=== PATIENT | female | born 1985 | race Caucasian/White ===

== ENCOUNTER 2019-04-11 19:03 | Inpatient (IN) | payer OTHER, SELFPAY ==
[2019-04-11 20:00] VITALS: BMI 53.0
[2019-04-11 20:07] LABS: Absolute Lymphocyte Count 2.44 X10^3/uL (0.83-4.51); Absolute Neutrophil Count 7.1 X10^3/uL (2.0-7.7); Basophil# 0.02 X10^3/uL; Basophil% 0.2 % (0-1); Eosinophil# 0.21 X10^3/uL; Hematocrit 34.1 % (37-47); Hemoglobin 10.4 g/dL (12.0-15.0); Lymphocyte # 2.44 X10^3/ul (4.0); Lymphocyte % 23.1 % (19-41); Mean Corp Hgb Conc 30.5 g/dL (32-36); Mean Corpuscular Hgb 24.8 pg (27.0-32.0); Mean Corpuscular Volume 81.2 fL (81-99); Mean Platelet Vol. 9.7 fl (6.2-12.0); Monocyte# 0.76 X10^3/uL; Monocyte% 7.2 % (0-10); NRBC Flagged by Analyzer 0 % (0-5); Neutrophil # 7.09 X10^3/uL (2.7-7.7); Neutrophil % 66.9 % (47-70); Platelet Count 250 K/mm3 (150-450); RBC Distribution Width CV 15.2 % (11.6-14.6); RBC Distribution Width SD 44.2 fl (35.1-43.9); White Blood Count 10.6 K/mm3 (4.4-11.0)
[2019-04-11] MEDS: miSOPROStol 25 MCG TABLET VAGINAL (20:38)
[2019-04-11] MEDS: 0.9% Normal Saline Single 100 ML IV.SOLN. IY (21:28)
--- NOTE | 2019-04-11 21:46 | HP.PCM_ITS ---
History Date of Admission: 04/11/19 Final HANNAH: 04/19/19 Gestational age: 38 Weeks and 6 Days History of this : This is a 33 year-old, G 1P0 at 38.6 weeks here for cervical ripening and labor induction due to morbid obesity and term gestation. Allergies codeine Adverse Reaction (Verified 04/11/19 19:55) Nausea/Vom/Diarrhea Home Medications: Home Medications Iron 04/11/19 Levothyroxine 04/11/19 Tablet 04/11/19 Smoking Status: Never smoker Alcohol: None Number of Fetus(es): 1 NST - FHR Rate Baby A Baseline: 140 Variability:: Moderate Accelerations:: 15 x 15 Decelerations:: None NST Reactive:: Yes FHR Category:: Category I Uterine Activity:: q2-5- pt not feeling strong contractions History Past Pregnancies: Past Pregnancies Delivery Date Name GA/ Weeks Outcome Route Wt Sex Labor Length Anesthesia Delivery Location Provider FOB Labs: GBS neg Expected Infant Delivery Method: Spontaneous Vaginal Physical Exam General: Alert, Oriented x3 Abdomen: Soft, Non Tender, Gravid Neurological: Cranial nerves II-XII grossly intact [employer]: Normal external genitalia Estimated gestational size: Appropriate for gestational size Presentation: Cephalic Cervix Dilation (cm): 1 Station: -3 Effacement (%): 60 Assessment/Plan This is a 33 year-old, G P0 at 38.6 weeks here for cervical ripening and labor induction due to morbid obesity and term gestation. 1) admit to L&D 2) monitor Fhr/toco 3) cytotec/brito then will start pitocin 4) anticipate
[2019-04-12] VITALS (9 sets, daily range): BP systolic 109–134; BP diastolic 48–95; PULSE 63–92; RESP 14–16; TEMP 37.1–37.7; O2SAT 96–100
[2019-04-12] MEDS: Oxytocin 30 units/NS 500 ml 30 UNITS/500 ML IV.SOLN IV (00:39)
[2019-04-12] MEDS: Lactated Ringers 1,000 ML 50 ML IV (00:39)
[2019-04-12] MEDS: 0.9% Saline Lock 10 ML Syringe IV ×3 (00:46→22:28)
[2019-04-12] MEDS: Lactated Ringers 500 ML 999 ML IV ×4 (03:19→15:38)
--- NOTE | 2019-04-12 05:44 | PCM.PN.BLA ---
Progress Note pt seen at bedside doing well. rates pain mild from contractions. VE: /-2- AROM performed- clear fluid. IUPC and IFM placed. Continue pitocin. Anticipate
--- NOTE | 2019-04-12 10:29 | PCM.PN.BLA ---
Progress Note pt seen at bedside - laboring without epidural. VE: /-3. Prominent pubic arch, narrow pelvis. FHR reviewed.
[2019-04-12] MEDS: Lactated Ringers 1,000 ML 200 ML IV ×2 (10:53→16:57)
[2019-04-12] MEDS: fentaNYL 100 MCG/2 ML Ampul IV (10:55)
[2019-04-12] MEDS: fentaNYL-bupivacaine (epidural) 100 ML BAG EPIDURAL ×2 (15:05→19:23)
--- NOTE | 2019-04-12 18:23 | PCM.PN.BLA ---
Progress Note pt seen at bedside, sitting comfortably with epidural in place. Vaginal exam performed patient is 4 to 5 cm 90% effaced -3 station caput appreciated. Cussed with the patient that at this time we will allow her to continue to labor for another hour and a half and if she is still the same exam my recommendation is for primary section for failed induction. Patient and family verbalized understanding and agree with the plan of care.
--- NOTE | 2019-04-12 20:25 | PCM.PN.BLA ---
Progress Note pt seen at bedside, VE same per RN. Decision for primary cs for failed induction
[2019-04-12] MEDS: Sodium Citrate/Citric Acid 30 ML UDC PO (20:32)
--- NOTE | 2019-04-12 21:33 | OP.PCM_ITS ---
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 She was prepped and draped in the normal sterile fashion. Epidural Anesthesia was found to be adequate. At this time a Pfannenstiel skin incision was made with a knife was carried down to the underlying layer of the fascia. The fascial incision was then extended laterally using curved Norman scissor. Attention was then turned to the superior aspect of the fascial edge was grasped with 2 straight Webb clamps tented up and the rectus muscle dissected off sharply using bovie. Attention was then turned to the inferior aspect where again Webb clamps were placed in the rectus muscles were tented up and the fascia was dissected off using the bovie. Rectus muscles were then in the midline bluntly and peritoneum was entered bluntly. Gentle opposing traction was placed. At this time the vesicouterine peritoneum was identified. Scalpel was used to make a uterine incision in a low transverse fashion. The uterus was then entered bluntly gentle opposing traction was placed to extend this incision. Membranes were clear. Infant's head was brought to the uterine incision was delivered atraumatically. Nuchal, body and a true KNOT were appreciated. Nuchal was reduced prior to delivery. delayed cord clamping performed. Cord was clamped and cut infant was handed to the waiting nursery team. The Placenta was removed from the uterus. The uterus was then removed from the abdominal cavity. The uterus was cleared of all clots and debris using a lap. At this time the uterine incision was reapproximated using #1 Vicryl in a running locked fashion. second imbricating layer placed using #1 vicryl. Hemostasis was appreciated. Posterior cul-de-sac was then cleared of all clots and debris. Uterus was p laced back in the abdominal cavity. Gutters were cleared of all clots and debris. Uterine incision was reevaluated and noted to be of excellent hemostasis. Carter placed. At this time the peritoneum was grasped with Kellys reapproximated using #2 Vicryl suture in a running fashion. Fascia was then reapproximated using #1 PDS in a running fashion. Subcu layer was evaluated- excellent hemostasis- Carter placed- then it was reapproximated with #2 0 plain gut suture in an interrupted fashion. Subcu layer was closed using 4-0 vicrryl in a subcu fashion. Dry sterile dressing was applied. Instrument lap needle count correct ?2. Anticipated normal postoperative course. Amniotic Membrane Rupture Type: Artificial Amniotic Fluid Description: Clear Placenta Disposition: [facility] Drain: Field to straight drain Cord Entanglement: Around neck x 1, loose, True Knot(s), - - body x1 loose Nuchal Cord Compression: Without compression Cord Vessel Description: 3 Vessels Esitmated Blood Loss (ml): 650 Gender: Male (1 minute): 9 (5 minute): 9 Delayed cord clamping: Yes Antibiotic Given: Ancef 3 grams IV x1, Zithromax 500 mg/5 mL X1 Pt instructed on risks of surgery: Bleeding, Anesthesia Risks, Infection, Injury to surrounding structure(s) including bowel and bladder Complications: None - Admit VTE Documentation VTE Present on Admission: Yes VTE Mechan Device Prophylaxis: SCD's VTE Pharm Prophylaxis ordered?: Yes
[2019-04-12] MEDS: Ketorolac 30 MG/ML Syringe IV (21:35)
[2019-04-12] MEDS: Lactated Ringers 1,000 ML 100 ML IV (22:00)
[2019-04-12] MEDS: Oxytocin 30 units/NS 500 ml 30 UNITS/500 ML IV.SOLN 167 UNITS IV (22:00)
[2019-04-12] MEDS: HYDROmorphone 1 MG/ML Syringe IV (22:28)
[2019-04-13] VITALS (10 sets, daily range): BP systolic 101–142; BP diastolic 39–80; PULSE 67–98; RESP 14–18; TEMP 36.7–37.9; O2SAT 95–100
[2019-04-13] MEDS: oxyCODONE 5 MG Tablet PO ×3 (01:53→11:47)
--- NOTE | 2019-04-13 03:02 | NURSING ---
abdominal binder provided with kpad for pt.
--- NOTE | 2019-04-13 03:42 | NURSING ---
epidural catheter removed. blue tip intact. pt tolerated well and gauze applied with bandaid.
[2019-04-13] MEDS: Ketorolac 30 MG/ML Syringe IV ×4 (03:46→21:34)
[2019-04-13] MEDS: 0.9% Saline Lock 10 ML Syringe IV ×3 (03:46→21:34)
[2019-04-13 04:20] LABS: Hematocrit 28.2 % (37-47); Hemoglobin 8.9 g/dL (12.0-15.0); Mean Corp Hgb Conc 31.6 g/dL (32-36); Mean Corpuscular Hgb 25.4 pg (27.0-32.0); Mean Corpuscular Volume 80.3 fL (81-99); Platelet Count 179 K/mm3 (150-450); RBC Distribution Width CV 15.3 % (11.6-14.6); RBC Distribution Width SD 44.4 fl (35.1-43.9); Red Blood Count 3.51 M/mm3 (4.2-5.4); White Blood Count 14.7 K/mm3 (4.4-11.0)
[2019-04-13] MEDS: Acetaminophen 500 MG Tablet 1000 MG PO ×2 (04:25→14:35)
[2019-04-13] MEDS: Levothyroxine 75 MCG Tablet 37.5 MCG PO (06:18)
[2019-04-13] MEDS: Lactated Ringers 1,000 ML 100 ML IV (06:19)
--- NOTE | 2019-04-13 08:02 | PCM.PN.OB ---
Subjective: Patient seen at bedside, doing well. Patient reports good pain control. Mild lochia. Brito catheter in place. She denies any chest pain, shortness of breath, dizziness or N/V. Patient reports she is passing flatus. breast feeding well. - Physical Exam Vitals/I&O's: Vital Signs Temp Pulse Resp BP Pulse Ox 98.1 F 88 16 109/54 L 98 04/13/19 07:43 04/13/19 07:43 04/13/19 07:43 04/13/19 07:43 04/13/19 07:43 Oxygen Delivery Method Room Air Weight: 140.2 kg Body Mass Index (BMI) 53.0 Intake and Output for Last 24 Hours 04/11/19 04/12/19 04/13/19 23:59 23:59 23:59 Intake Total 6939.53 / 6939.53 3031.67 / 3031.67 Output Total 1300 / 1300 900 / 900 Balance 5639.53 / 5639.53 2131.67 / 2131.67 General: Alert, Oriented x3 Abdomen: Soft, Non-Distended, - - dressing dry and intact. Incision dressing dry and intact Extremities: No Calf Tenderness Neurological: Cranial nerves II-XII grossly intact Laboratory Results 04/13/19 04:00: WBC 14.7 H, RBC 3.51 L, Hgb 8.9 L, Hct 28.2 L, MCV 80.3 L, MCH 25.4 L, MCHC 31.6 L, RDW Std Deviation 44.4 H, RDW Coeff of Tyrese 15.3 H, Plt Count 179, MPV 10.0 Current Medications Acetaminophen (Tylenol) 1,000 mg PO Q8H PRN PRN PRN Reason: Pain Score 1-3/10;Temp>99.6F Last Admin: 04/13/19 04:25 Dose: 1,000 mg Documented by: Bisacodyl (Dulcolax) 10 mg RECTAL UD PRN PRN Reason: If no BM Enoxaparin Sodium (Lovenox) 40 mg SC 0900,2100 [facility] Hydrocortisone (Hytone) 1 applic TOPICAL TID PRN PRN; Protocol PRN Reason: Discomfort Hydromorphone HCl (Dilaudid Inj) 0.5 - 1.5 mg IV Q3H PRN PRN PRN Reason: Pain Score 4-10/10 Stop: 04/13/19 21:41 Last Admin: 04/12/19 22:28 Dose: 1 mg Documented by: Lactated Ringer's () 1,000 mls @ 100 mls/hr IV .Q10H [facility] Last Admin: 04/13/19 06:19 Dose: 100 mls/hr Documented by: Naloxone HCl 4 mg/ Dextrose 504 mls @ 0 mls/hr IV .Q0M PRN; Protocol PRN Reason: Respiratory depression Naloxone HCl 4 mg/ Dextrose 504 mls @ 0 mls/hr IV .Q0M PRN; Protocol PRN Reason: To maintain Resp. rate >10 Ibuprofen (Motrin) 600 mg PO Q6H PRN PRN PRN Reason: Pain Score 1-3/10 Ketorolac Tromethamine (Toradol) 30 mg IV Q6H [facility] Stop: 04/14/19 15:46 Last Admin: 04/13/19 03:46 Dose: 30 mg Documented by: Levothyroxine Sodium (Synthroid) 37.5 mcg PO DAILY@0600 [facility] Last Admin: 04/13/19 06:18 Dose: 37.5 mcg Documented by: Methylergonovine Maleate (Methergine) 0.2 mg IM X1 PRN PRN Reason: Uterine Atony Naloxone HCl (Narcan) 0.02 mg IV Q1M PRN PRN Reason: RR <10 and pt unresponsive Ondansetron HCl (Zofran) 4 mg IV Q4H PRN PRN PRN Reason: Nausea Oxycodone HCl (Oxyir) 5 - 10 mg PO Q4H PRN PRN PRN Reason: Pain Score 4-10/10 Last Admin: 04/13/19 07:16 Dose: 10 mg Documented by: Prochlorperazine Edisylate (Compazine Iv) 10 mg IV Q6H PRN PRN PRN Reason: NAUSEA Senna/Docusate Sodium (Senokot-S, Lotus-Colace) 0 tablet PO DAILY PRN PRN Reason: Constipation Simethicone (Mylicon) 80 mg PO PCHS PRN PRN Reason: Indigestion/stomach pain Sodium Chloride () 5 - 15 ml IV UD PRN PRN Reason: SALINE FLUSH Last Admin: 04/13/19 03:46 Dose: 10 ml Documented by: Medical Necessity - Tobacco Use Smoking Status: Never smoker Assessment/Plan POD#1, doing well routine care pain mgmt dc brito later today ambulation
[2019-04-13] MEDS: Senna/Docusate Sodium 1 Tablet PO (09:24)
[2019-04-13] MEDS: Enoxaparin 40 MG/0.4 ML Syringe SC ×2 (09:24→21:34)
--- NOTE | 2019-04-13 20:36 | NURSING ---
Patient complains of a tender area in lower left abdomen. No grimace upon palpation. Will continue to monitor. Patient advised to notify this RN with worsening pain or questions/concerns.
[2019-04-14 02:15] VITALS: BP 146/47; PULSE 80; RESP 18; TEMP 36.7
[2019-04-14] MEDS: Ketorolac 30 MG/ML Syringe IV ×3 (03:39→16:42)
[2019-04-14] MEDS: 0.9% Saline Lock 10 ML Syringe IV ×3 (03:39→16:42)
[2019-04-14] MEDS: Levothyroxine 75 MCG Tablet 37.5 MCG PO (06:25)
[2019-04-14 08:43] VITALS: BP 106/61; PULSE 91; RESP 16; TEMP 37.1; O2SAT 98
[2019-04-14] MEDS: Acetaminophen 500 MG Tablet 1000 MG PO (08:49)
--- NOTE | 2019-04-14 08:52 | PN.OBGYN_ITS ---
Subjective: Doing well per patient and nursing staff. Ambulating and taking PO without difficulty. Voiding and passing flatus. . Pain controlled. Denies SOB, chest pain, leg pain, increased vaginal bleeding or clots. Planning D/C home tomorrow. Baby being followed by pediatricians for TTN, in patients room at this time. - Physical Exam Vitals/I&O's: Vital Signs Temp Pulse Resp BP Pulse Ox 98.8 F 91 16 106/61 98 04/14/19 08:43 04/14/19 08:43 04/14/19 08:43 04/14/19 08:43 04/14/19 08:43 Oxygen Delivery Method Room Air Weight: 309 lb 1.409 oz Body Mass Index (BMI) 53.0 Intake and Output for Last 24 Hours 04/12/19 04/13/19 04/14/19 23:59 23:59 23:59 Intake Total 6939.53 / 6939.53 3435.00 / 3435.00 Output Total 1300 / 1300 1999 / 1999 Balance 5639.53 / 5639.53 1435.00 / 1435.00 General: Alert, Oriented x3, Cooperative HEENT: Atraumatic, Normocephalic Neck: Trachea Midline Lungs: Clear to auscultation, Normal air movement, No rhonchi, No wheeze Cardiovascular: Regular rate, Regular Rhythm, No murmurs Abdomen: Hypoactive Bowel Sounds - Fundus firm 3 below U. Dressing clean, dry and intact. Extremities: No edema - Milton's negative bilaterally Psych/Mental Status: Normal Affect, Appropriate Current Medications Acetaminophen (Tylenol) 1,000 mg PO Q8H PRN PRN PRN Reason: Pain Score 1-3/10;Temp>99.6F Last Admin: 04/14/19 08:49 Dose: 1,000 mg Documented by: Bisacodyl (Dulcolax) 10 mg RECTAL UD PRN PRN Reason: If no BM Enoxaparin Sodium (Lovenox) 40 mg SC 0900,2100 [facility] Last Admin: 04/13/19 21:34 Dose: 40 mg Documented by: Hydrocortisone (Hytone) 1 applic TOPICAL TID PRN PRN; Protocol PRN Reason: Discomfort Naloxone HCl 4 mg/ Dextrose 504 mls @ 0 mls/hr IV .Q0M PRN; Protocol PRN Reason: Respiratory depression Naloxone HCl 4 mg/ Dextrose 504 mls @ 0 mls/hr IV .Q0M PRN; Protocol PRN Reason: To maintain Resp. rate >10 Ibuprofen (Motrin) 600 mg PO Q6H PRN PRN PRN Reason: Pain Score 1-3/10 Ketorolac Tromethamine (Toradol) 30 mg IV Q6H [facility] Stop: 04/14/19 15:46 Last Admin: 04/14/19 03:39 Dose: 30 mg Documented by: Levothyroxine Sodium (Synthroid) 37.5 mcg PO DAILY@0600 [facility] Last Admin: 04/14/19 06:25 Dose: 37.5 mcg Documented by: Methylergonovine Maleate (Methergine) 0.2 mg IM X1 PRN PRN Reason: Uterine Atony Naloxone HCl (Narcan) 0.02 mg IV Q1M PRN PRN Reason: RR <10 and pt unresponsive Ondansetron HCl (Zofran) 4 mg IV Q4H PRN PRN PRN Reason: Nausea Oxycodone HCl (Oxyir) 5 - 10 mg PO Q4H PRN PRN PRN Reason: Pain Score 4-10/10 Last Admin: 04/13/19 11:47 Dose: 10 mg Documented by: Prochlorperazine Edisylate (Compazine Iv) 10 mg IV Q6H PRN PRN PRN Reason: NAUSEA Senna/Docusate Sodium (Senokot-S, Lotus-Colace) 0 tablet PO DAILY PRN PRN Reason: Constipation Last Admin: 04/13/19 09:24 Dose: 1 tablet Documented by: Simethicone (Mylicon) 80 mg PO PCHS PRN PRN Reason: Indigestion/stomach pain Last Admin: 04/14/19 03:50 Dose: 80 mg Documented by: Sodium Chloride () 5 - 15 ml IV UD PRN PRN Reason: SALINE FLUSH Last Admin: 04/14/19 03:39 Dose: 10 ml Documented by: Medical Necessity - Tobacco Use Smoking Status: Never smoker Assessment/Plan A:POD #2 Primary LTCS Acute blood loss anemia P: 1) Routine postop and care 2) support 3) Pain control 4) Planning D/C home tomorrow 5) CBC in am
[2019-04-14] MEDS: Enoxaparin 40 MG/0.4 ML Syringe SC ×2 (08:56→21:30)
--- NOTE | 2019-04-14 10:15 | NURSING ---
baby transferred to [facility] , mother initiated double pumping with double electric hospital pump, explained, discussed hand expression 4-5x per day, washing pump parts, collecting milk for baby, and encouragement of every 3 hour pumping , mother indicates understanding
[2019-04-14 11:57] VITALS: BP 114/73; PULSE 80; RESP 16; TEMP 37; O2SAT 97
[2019-04-14] MEDS: Ferrous Sulfate 325 MG Tablet PO ×2 (13:02→16:41)
[2019-04-14 16:56] VITALS: BP 102/38; PULSE 80; RESP 16; TEMP 37.1; O2SAT 100
[2019-04-14 20:49] VITALS: BP 116/76; PULSE 79; RESP 18; TEMP 37.3; O2SAT 100
[2019-04-15 02:34] VITALS: BP 122/74; PULSE 83; RESP 18; TEMP 37; O2SAT 99
[2019-04-15] MEDS: Levothyroxine 75 MCG Tablet 37.5 MCG PO (06:10)
[2019-04-15 06:31] LABS: Absolute Lymphocyte Count 2.57 X10^3/uL (0.83-4.51); Absolute Neutrophil Count 7.7 X10^3/uL (2.0-7.7); Basophil# 0.02 X10^3/uL; Basophil% 0.2 % (0-1); Eosinophil# 0.25 X10^3/uL; Eosinophils% 2.2 % (0-5); Hematocrit 27.5 % (37-47); Hemoglobin 8.4 g/dL (12.0-15.0); Lymphocyte # 2.57 X10^3/ul (4.0); Lymphocyte % 22.7 % (19-41); Mean Corp Hgb Conc 30.5 g/dL (32-36); Mean Corpuscular Hgb 25.4 pg (27.0-32.0); Mean Corpuscular Volume 83.1 fL (81-99); Mean Platelet Vol. 9.5 fl (6.2-12.0); Monocyte# 0.69 X10^3/uL; Monocyte% 6.1 % (0-10); NRBC Flagged by Analyzer 0 % (0-5); Neutrophil % 68.1 % (47-70); Platelet Count 195 K/mm3 (150-450); RBC Distribution Width CV 15.7 % (11.6-14.6); Red Blood Count 3.31 M/mm3 (4.2-5.4); White Blood Count 11.3 K/mm3 (4.4-11.0)
--- NOTE | 2019-04-15 08:44 | PN.OBGYN_ITS ---
Subjective: pain well controlled. Average lochia. no N/V. Isaias. regular diet - Physical Exam Vitals/I&O's: Vital Signs Temp Pulse Resp BP Pulse Ox 98.6 F 83 18 122/74 H 99 04/15/19 02:34 04/15/19 02:34 04/15/19 02:34 04/15/19 02:34 04/15/19 02:34 Oxygen Delivery Method Room Air Weight: 140.2 kg Body Mass Index (BMI) 53.0 Intake and Output for Last 24 Hours 04/13/19 04/14/19 04/15/19 23:59 23:59 23:59 Intake Total 3435.00 / 3435.00 Output Total 1999 Balance 1435.00 / 1435.00 General: Alert, Cooperative, No apparent distress Abdomen: Soft, Non-Distended, Tender - mildly Extremities: Edema - 2+ Skin: Incision - bandage is Clean,dry and intact Laboratory Results 04/15/19 06:15: WBC 11.3 H, RBC 3.31 L, Hgb 8.4 L, Hct 27.5 L, MCV 83.1, MCH 25.4 L, MCHC 30.5 L, RDW Std Deviation 47.0 H, RDW Coeff of Tyrese 15.7 H, Plt Count 195, MPV 9.5, Immature Gran % (Auto) 0.700, Neut % (Auto) 68.1, Lymph % (Auto) 22.7, [place] % (Auto) 6.1, Eos % (Auto) 2.2, Baso % (Auto) 0.2, Absolute Neuts (auto) 7.7, Absolute Lymphs (auto) 2.57, Nucleated RBC % 0 Current Medications Acetaminophen (Tylenol) 1,000 mg PO Q8H PRN PRN PRN Reason: Pain Score 1-3/10;Temp>99.6F Last Admin: 04/14/19 08:49 Dose: 1,000 mg Documented by: Bisacodyl (Dulcolax) 10 mg RECTAL UD PRN PRN Reason: If no BM Enoxaparin Sodium (Lovenox) 40 mg SC 0900,2100 [facility] Last Admin: 04/14/19 21:30 Dose: 40 mg Documented by: Ferrous Sulfate (Ferrous Sulfate) 325 mg PO 1200,1700 [facility] Last Admin: 04/14/19 16:41 Dose: 325 mg Documented by: Hydrocortisone (Hytone) 1 applic TOPICAL TID PRN PRN; Protocol PRN Reason: Discomfort Naloxone HCl 4 mg/ Dextrose 504 mls @ 0 mls/hr IV .Q0M PRN; Protocol PRN Reason: Respiratory depression Naloxone HCl 4 mg/ Dextrose 504 mls @ 0 mls/hr IV .Q0M PRN; Protocol PRN Reason: To maintain Resp. rate >10 Ibuprofen (Motrin) 600 mg PO Q6H PRN PRN PRN Reason: Pain Score 1-3/10 Levothyroxine Sodium (Synthroid) 37.5 mcg PO DAILY@0600 [facility] Last Admin: 04/15/19 06:10 Dose: 37.5 mcg Documented by: Methylergonovine Maleate (Methergine) 0.2 mg IM X1 PRN PRN Reason: Uterine Atony Naloxone HCl (Narcan) 0.02 mg IV Q1M PRN PRN Reason: RR <10 and pt unresponsive Ondansetron HCl (Zofran) 4 mg IV Q4H PRN PRN PRN Reason: Nausea Oxycodone HCl (Oxyir) 5 - 10 mg PO Q4H PRN PRN PRN Reason: Pain Score 4-10/10 Last Admin: 04/13/19 11:47 Dose: 10 mg Documented by: Prochlorperazine Edisylate (Compazine Iv) 10 mg IV Q6H PRN PRN PRN Reason: NAUSEA Senna/Docusate Sodium (Senokot-S, Lotus-Colace) 0 tablet PO DAILY PRN PRN Reason: Constipation Last Admin: 04/13/19 09:24 Dose: 1 tablet Documented by: Simethicone (Mylicon) 80 mg PO PCHS PRN PRN Reason: Indigestion/stomach pain Last Admin: 04/14/19 03:50 Dose: 80 mg Documented by: Sodium Chloride () 5 - 15 ml IV UD PRN PRN Reason: SALINE FLUSH Last Admin: 04/14/19 16:42 Dose: 10 ml Documented by: Medical Necessity - Tobacco Use Smoking Status: Never smoker Assessment/Plan POD#3 s/p primary c/s doing well routine care working on , patient d/c to [facility]
--- NOTE | 2019-04-15 08:49 | DCINST_ITS ---
Discharge Diet: No Restrictions Discharge Activity: Return to Normal Activity, May Not Drive - for 2 weeks, May not drive while taking narcotic pain medications., May Shower, May Take a Tub Bath - in 7 days. May resume sexual activity in: 4-6 weeks Lifting Restrictions: 20 pounds Additional Activity Instructions:: Nothing in the vagina for 4-6 weeks. You may return to work/school in 6 weeks. Call your doctor if your incision/area has: Continuous Slow Oozing, Sudden Increased Bleeding, Increased Pain/ Swelling, Increased Redness, Foul Smelling Discharge Call your doctor if you observe: Fever of 101 or Higher, Using more than one pad per hour - for 2 hours Suture Line Care: Avoid Pulling/Pushing, Avoid Pinching/Bending Cleanse incision/area with: Keep Dressing Clean & Dry Additional Instructions: If you experience any of the following, contact your healthcare provider. * Bleeding that soaks a pad every hour for 2 hours * Fever 100.4 or higher * Unrelieved incision or abdominal pain * Swelling, redness, discharge or bleeding from your incision or episiotomy site * Your incision begins to separate * Problems urinating (including inability to urinate or burning while urinating). * Visual changes * Severe headache * Flu-like symptoms * Pain or redness in one of both of your breasts * Pain, warmth, tenderness or swelling in your legs, especially the calf area * Frequent nausea and vomiting * Symptoms of depression or anxiety If you experience any of the following, call 911 or go to the nearest Emergency Room. * Chest pain * Problems breathing * Seizure activity * Partial or complete paralysis of a body part, slurred speech, weakness or drooping of the face, or a sudden inability to walk or hold your balance Allergies/Adverse Reactions: Allergies codeine Adverse Reaction (Verified 04/11/19 19:55) Nausea/Vom/Diarrhea Medications to take at Discharge Iron 04/11/19 Levothyroxine 04/11/19 Tablet 04/11/19 Oxycodone [Oxyir] 5 mg PO Q6H PRN PRN 7 Days #12 tablet 04/15/19 The following prescriptions were given: Oxycodone [Oxyir] 5 mg PO Q6H PRN PRN 7 Days #12 tablet PRN Reason: severe pain Transmission Status: Received by [facility]/pharmacy #[id number] Follow-Up: Call to make an appointment with your doctor for an incision check in 1-2 weeks. You will also need a 6 week post- follow up appointment. Test results from this visit will be discussed in further detail at your follow- up appointment, if applicable. Please Follow Up With: Janet Myers MD - Call to make an appointment for an incision check in 1-2 [phone] When: You will need a post check in 6 weeks. Primary Care Physician: Lauren Ramirez, [Primary Care Provider] -
--- NOTE | 2019-04-15 08:51 | DS.PCM_ITS ---
Discharge Date and Diagnosis Date of Admission: 04/11/19 Date of Discharge: 04/15/19 Hospital Course and Treatment Consultations 04/11/19 19:21 Consult: Anesthesia Routine Comment: Reason For Exam: Labor Operations: - - primary LTCS Procedures: None Summary of Care Provided: The patient is a 33-year-old female admitted at 39 weeks gestation for induction of labor due to maternal obesity and history of gastric bypass. was complicated to date by those problems. Her induction proceeded to she was 4 to 5 cm. She then had arrest of dilation and descent. station never progressed past -3. Patient underwent primary section. Postoperative course was uncomplicated. She had mild acute blood loss anemia superimposed on chronic antepartum anemia. By postoperative day #3 she was ambulating, urinating tolerating regular diet without difficulty. She was discharged home with routine instructions and prescriptions and to follow-up in the office in 1- 2 in 6 weeks or as needed. I discussed with the patient she could take a short course of low-dose NSAIDs even with her history of gastric bypass. is still being observed in the special care nursery he had transient tachypnea of but is doing well. [] - Physical Exam Vitals/I&O's: Vital Signs Temp Pulse Resp BP Pulse Ox 98.6 F 83 18 122/74 H 99 04/15/19 02:34 04/15/19 02:34 04/15/19 02:34 04/15/19 02:34 04/15/19 02:34 Oxygen Delivery Method Room Air Weight: 140.2 kg Body Mass Index (BMI) 53.0 Intake and Output for Last 24 Hours 04/13/19 04/14/19 04/15/19 23:59 23:59 23:59 Intake Total 3435.00 / 3435.00 Output Total 1999 Balance 1435.00 / 1435.00 Laboratory Results 04/15/19 06:15: WBC 11.3 H, RBC 3.31 L, Hgb 8.4 L, Hct 27.5 L, MCV 83.1, MCH 25.4 L, MCHC 30.5 L, RDW Std Deviation 47.0 H, RDW Coeff of Tyrese 15.7 H, Plt Count 195, MPV 9.5, Immature Gran % (Auto) 0.700, Neut % (Auto) 68.1, Lymph % (Auto) 22.7, [place] % (Auto) 6.1, Eos % (Auto) 2.2, Baso % (Auto) 0.2, Absolute Neuts (auto) 7.7, Absolute Lymphs (auto) 2.57, Nucleated RBC % 0 Current Medications Acetaminophen (Tylenol) 1,000 mg PO Q8H PRN PRN PRN Reason: Pain Score 1-3/10;Temp>99.6F Last Admin: 04/14/19 08:49 Dose: 1,000 mg Documented by: Bisacodyl (Dulcolax) 10 mg RECTAL UD PRN PRN Reason: If no BM Enoxaparin Sodium (Lovenox) 40 mg SC 0900,2100 [facility] Last Admin: 04/14/19 21:30 Dose: 40 mg Documented by: Ferrous Sulfate (Ferrous Sulfate) 325 mg PO 1200,1700 [facility] Last Admin: 04/14/19 16:41 Dose: 325 mg Documented by: Hydrocortisone (Hytone) 1 applic TOPICAL TID PRN PRN; Protocol PRN Reason: Discomfort Naloxone HCl 4 mg/ Dextrose 504 mls @ 0 mls/hr IV .Q0M PRN; Protocol PRN Reason: Respiratory depression Naloxone HCl 4 mg/ Dextrose 504 mls @ 0 mls/hr IV .Q0M PRN; Protocol PRN Reason: To maintain Resp. rate >10 Ibuprofen (Motrin) 600 mg PO Q6H PRN PRN PRN Reason: Pain Score 1-3/10 Levothyroxine Sodium (Synthroid) 37.5 mcg PO DAILY@0600 [facility] Last Admin: 04/15/19 06:10 Dose: 37.5 mcg Documented by: Methylergonovine Maleate (Methergine) 0.2 mg IM X1 PRN PRN Reason: Uterine Atony Naloxone HCl (Narcan) 0.02 mg IV Q1M PRN PRN Reason: RR <10 and pt unresponsive Ondansetron HCl (Zofran) 4 mg IV Q4H PRN PRN PRN Reason: Nausea Oxycodone HCl (Oxyir) 5 - 10 mg PO Q4H PRN PRN PRN Reason: Pain Score 4-10/10 Last Admin: 04/13/19 11:47 Dose: 10 mg Documented by: Prochlorperazine Edisylate (Compazine Iv) 10 mg IV Q6H PRN PRN PRN Reason: NAUSEA Senna/Docusate Sodium (Senokot-S, Lotus-Colace) 0 tablet PO DAILY PRN PRN Reason: Constipation Last Admin: 04/13/19 09:24 Dose: 1 tablet Documented by: Simethicone (Mylicon) 80 mg PO PCHS PRN PRN Reason: Indigestion/stomach pain Last Admin: 04/14/19 03:50 Dose: 80 mg Documented by: Sodium Chloride () 5 - 15 ml IV UD PRN PRN Reason: SALINE FLUSH Last Admin: 04/14/19 16:42 Dose: 10 ml Documented by: Discharge Diet: No Restrictions Discharge Activity: Return to Normal Activity, May Not Drive - for 2 weeks, May not drive while taking narcotic pain medications., May Shower, May Take a Tub Bath - in 7 days. May resume sexual activity in: 4-6 weeks Additional Activity Instructions:: Nothing in the vagina for 4-6 weeks. You may return to work/school in 6 weeks. Call your doctor if your incision/area has: Continuous Slow Oozing, Sudden Increased Bleeding, Increased Pain/ Swelling, Increased Redness, Foul Smelling Discharge Call your doctor if you observe: Fever of 101 or Higher, Using more than one pad per hour - for 2 hours Suture Line Care: Avoid Pulling/Pushing, Avoid Pinching/Bending Cleanse incision/area with: Keep Dressing Clean & Dry Home Medications: Medications to take at Discharge Iron 04/11/19 Levothyroxine 04/11/19 Tablet 04/11/19 Oxycodone [Oxyir] 5 mg PO Q6H PRN PRN 7 Days #12 tablet 04/15/19 Following Prescrptions Were Given to Patient: Oxycodone [Oxyir] 5 mg PO Q6H PRN PRN 7 Days #12 tablet PRN Reason: severe pain Transmission Status: Received by [facility]/pharmacy #[id number] Primary Care Physician: Lauren Ramirez DO [Primary Care Provider] - Please Follow Up With: Janet Myers MD - Call to make an appointment for an incision check in 1-2 [phone] When: You will need a post check in 6 weeks. Medical Necessity - Tobacco Use Smoking Status: Never smoker Meaningful Use Info Meaningful Use Diagnoses (Choose all that apply): None applicable
[2019-04-15] MEDS: Acetaminophen 500 MG Tablet 1000 MG PO (09:16)
[2019-04-15] MEDS: Enoxaparin 40 MG/0.4 ML Syringe SC (09:17)
[2019-04-15] MEDS: Senna/Docusate Sodium 1 Tablet PO (09:25)
[2019-04-15 09:30] VITALS: BP 123/71; PULSE 72; RESP 18; TEMP 37
--- NOTE | 2019-04-15 09:30 | NURSING ---
Pt pumping during assessment. RN encouraged pt to hand express after pumping. Pt to bring milk over to special care after nap for feeding at 11.
[2019-04-15 12:20] VITALS: BP 105/50
--- NOTE | 2019-04-15 13:48 | NURSING ---
BP taken per pt request. Pt states she felt weird while visiting baby in special care. RN encouraged pt to rest and drink plenty of fluids.
[2019-04-15 15:45] VITALS: BP 107/58; PULSE 73; RESP 18; TEMP 36.9
[2019-04-15] MEDS: oxyCODONE 5 MG Tablet PO (15:51)
[2019-04-15] MEDS: Ferrous Sulfate 325 MG Tablet PO ×2 (15:52→18:16)
[2019-04-15 18:18] VITALS: BP 120/66; PULSE 65
--- NOTE | 2019-04-16 13:35 | CASEMGMT ---
Social Work Labor and Delivery Unit Date of Intervention:?04.16.2019 Time of Intervention:?1338 History obtained from:?mother of baby (MOB) Janette Ugarte, medical record. ?Father of baby (FOB) Joel Ugarte present during conversation as well. ? Summary: Patient, mother of baby (MARIANNE), was discharged as a patient on 04.25.2019. Met with MOB, who is still on the unit due to baby being in the [facility]. Offered support, education on resources in [facility] and also depression. MOB reports to have a great support system with FOB, to whom MOB is , and who will be home the remainder of the week. ?Additional support from MOB's parent and grandmother. ?MOB's grandmother lives across the street and is willing to help whenever is needed or wanted. MOB reports has been seeing a counselor Herlinda Castillo in [place], [place] about twice a month and will continued to do so in the period. MOB reports started seeking Herlinda during journey with infertility. ??No history of medications for depression or anxiety reported by MOB. ?No other emotional health issues or concerns reported, though noted in MOB's care record a notation about history of binge eating disorder and treatment/referral to Dr. Celeste. ?MOB and FOB deny any substance use issues for either parent. ?MOB had a negative Tox screen on 09.02.2018. MOB reports to have all needed supplies for baby, to have help at home, and plans to continue tying to breast feed the baby. ??MOB admits that baby being in [facility] has been hard, but feeling like is managing okay overall. ??MOB accepted depression packet and education on topic. ?Plans to continue with counselor as before delivery. MOB attentive during social work visit, good eye contact, with appropriate mood and affect to topics being discussed. FOB lying on couch, on phone, participating only when elicited; polite when participating. ?Accepted [facility] resource list but denies desire for any referrals to programs such as [facility] or nurse visit. ?Baby to follow up with [facility] pediatrics in [place]. ?No concerns voiced by nursing staff regarding parent/child interactions or bonding. ??Touched on shaken baby prevention and safe sleeping. ?MOB aware of both topics. ? Plan: MOB has been discharged and will remain in a courtesy room until [facility]. No other services requested or indicated. MOB has been given community resource information for home going. YECENIA Ramires
== END 2019-04-15 18:50 | disposition home or self-care (01) | DRG 788 ==
PROVIDERS: Advanced Practice Midwife; Admitting Provider Obstetrics & Gynecology; PCP Family Medicine; Visit Provider Obstetrics & Gynecology
DX: O99.214 Obesity complicating childbirth (principal); O61.0 Failed medical induction of labor; E66.01 Morbid (severe) obesity due to excess calories; O69.2XX0 Labor and delivery complicated by other cord entanglement, with compression, not applicable or unspecified; O99.844 Bariatric surgery status complicating childbirth; O99.02 Anemia complicating childbirth; D64.9 Anemia, unspecified; Z3A.39 39 weeks gestation of pregnancy; Z37.0 Single live birth
CPT/HCPCS: 59025; 59050; 85025; 85027; 86850; 86900; 86901; 94762; 99218; 99251; J7120; A4216; G0378; G0463; J2405

== ENCOUNTER 2020-06-22 05:02 | Day surgery (SDC) | payer BC, SELFPAY ==
[2020-06-22] VITALS (16 sets, daily range): BP systolic 85–163; BP diastolic 29–99; PULSE 60–85; RESP 16–20; TEMP 36.3–37; O2SAT 97–100; BMI 51.5
--- NOTE | 2020-06-22 05:16 | ED.DCSUM_ITS ---
History of Present Illness Chief Complaint: Vag Bld, Preg Informant: Patient Narrative: Patient is a 34-year-old female with a history of polycystic ovarian disease who presents to the emergency department for heavy vaginal bleeding. She had an ultrasound today for . She is supposed to be 10 weeks but the fetus was only measuring around 6 weeks. They did see any heart activity and diagnosed her with demise. This is her second the first did not have any issues but did require section. She states that she has saturated 3 pads since around 3 AM this morning. She still having active bleeding now. She has been having abdominal cramping. She denies any fevers or chills. Past Medical History - Allergies and Home Meds Allergies/Adverse Reactions: Allergies codeine Adverse Reaction (Verified 04/11/19 19:55) Nausea/Vom/Diarrhea Prior records reviewed: Yes Surgical History: noncontributory Smoking Status: Never smoker Review of Systems All systems negative except as indicated General: Denies: Chills, Fever ENT: Denies: Sore throat Cardiovascular: Denies: Chest pain, Palpitations Respiratory: Denies: Dyspnea, Cough, Dyspnea on exertion Gastrointestinal: Reports: Abdominal pain. Denies: Nausea, Vomiting Musculoskeletal: Denies: Back pain, Extremity Pain Skin: Denies: Rash, Wounds Neurological: Denies: Headache, Weakness, Numbness Hematologic: Denies: Easy bruising, Easy bleeding Physical Exam Vital Signs/Narrative: Vital Signs Temp Pulse Resp BP Pulse Ox 06/22/20 05:03 98.3 F 76 20 H 163/99 H 97 Inital Vital Signs reviewed: Yes General: Well nourished, Well developed, No Acute Distress Head: Normocephalic, Atraumatic Eyes: Perrl, EOMI ENT: Moist mucous membranes, No rhinorrhea Neck: Supple, Nontender Cardiovascular: Regular rate, Regular rhythm, No murmurs Respiratory: No distress, CTA bilaterally, Chest nontender Abdomen: Soft, Nondistended, Normal bowel sounds, Tender - Lower quadrant. Negative for: Guarding, Rebound tenderness : - - Pelvic exam chaperoned by nurse, vaginal vault quickly fills with blood. There are large amounts of clot present as well. Cervical os unable to be visualized completely. Back: Nontender, Normal Inspection Extremities: Nontender, No edema Skin: Normal color, No rash Neurological: Alert, Normal Strength, Normal Sensation Psychological: Normal affect, Normal Mood Diagnostic/Tx/Re-eval - Medical Decision Making Patient presents to the emergency department for vaginal bleeding after dilating diagnosed with demise earlier today. On arrival to the ED she is hypertensive but not tachycardic. She does not appear in any acute distress but is mildly anxious. Will check basic lab work. I did perform bedside pelvic exam to evaluate for tissue stuck in cervical os. There was a large amount of blood clots which I was able to remove. There was still active bleeding. At this time ASTROPHYSICS TEACHER is paged. She will likely need a D&C. Lab work has not shown the patient to be anemic. She states that her blood type is a positive. Will type and screen due to the acute blood loss. With the current hypertension she states she did have high blood pressure with her previous now. She was induced for this reason. She has not been on any blood pressure medicine since. I did speak with the on-call ASTROPHYSICS TEACHER who is willing to come to the hospital to perform the D&C. Patient kept n.p.o. She otherwise has been stable throughout ED stay. Patient understands and is agreeable with this plan. ED Disposition - Plan for ED Patient: Disposition: Acute Care Hospital [facility] Diagnosis: Vaginal bleeding, Miscarriage, Elevated BP without diagnosis of hypertension
[2020-06-22 05:18] LABS: Absolute Lymphocyte Count 3.55 X10^3/uL (0.83-4.51); Basophil# 0.04 X10^3/uL; Basophil% 0.4 % (0-1); Eosinophil# 0.31 X10^3/uL; Eosinophils% 3.2 % (0-5); Hematocrit 43.3 % (37-47); Hemoglobin 13.3 g/dL (12.0-15.0); Lymphocyte # 3.55 X10^3/ul (4.0); Mean Corp Hgb Conc 30.7 g/dL (32-36); Mean Corpuscular Hgb 26.5 pg (27.0-32.0); Mean Corpuscular Volume 86.4 fL (81-99); Mean Platelet Vol. 9.2 fl (6.2-12.0); Monocyte# 0.72 X10^3/uL; Monocyte% 7.5 % (0-10); NRBC Flagged by Analyzer 0 % (0-5); Neutrophil # 4.95 X10^3/uL (2.7-7.7); Neutrophil % 51.6 % (47-70); Platelet Count 303 K/mm3 (150-450); RBC Distribution Width CV 15.5 % (11.6-14.6); RBC Distribution Width SD 49.2 fl (35.1-43.9); Red Blood Count 5.01 M/mm3 (4.2-5.4); White Blood Count 9.6 K/mm3 (4.4-11.0)
[2020-06-22 05:32] LABS: Anion Gap 3 (5-15); BUN 10 mg/dL (7-18); BUN/Creat Ratio 11.3 RATIO (10-20); Chloride 104 mmol/L (98-107); Creatinine, Serum 0.89 mg/dL (0.55-1.02); EST Glomerular Filtration Rate 77 mL/min (>60); Est Glom Filt Rate - Afr Amer 93 mL/min (>60); Estimated Creatinine Clearance 76.91 ml/min; Glucose 99 mg/dL (74-106); Potassium 3.5 mmol/L (3.5-5.1); Sodium Level 138 mmol/L (136-145)
[2020-06-22 05:35] LABS: AST(SGOT) 12 U/L (15-37); Alanine Aminotransfer ALT/SGPT 25 U/L (13-56); Albumin, Serum 3.4 g/dL (3.2-5.0); Alkaline Phosphatase 85 U/L (45-117); Bilirubin, Direct 0.11 mg/dL (0.00-0.30); Globulin 4.1 g/dL (2.2-4.2); Protein, Total 7.5 g/dL (6.4-8.2)
--- NOTE | 2020-06-22 06:05 | POC_PTH ---
PATIENT: LAURA LARA LOC: [facility] U#:[id number] AGE/SX: 34/F ROOM: RE06/22/[address]: Dr. Gela Bunch, MDDOB: 1985 BED: DIS: 06/22/2020 SPEC #: [id number] RECD: 06/22/20 07:38 STATUS: AMINATA HAMMER #: [id number] EDGAR: 06/22/20 06:[address]: Gela Bunch DEPT: SURGICAL PATHOLOGY RECD BY: Carin Rooney ENTERED: 06/22/20 07:58 SP TYPE: PROD CONC OTHR DR: Dr. Lauren Ramirez, DO Tissues: Product of conception, NOS Procedures: Surgery Specimen Level IV HEADER OPERATION: Suction dilation and curettage PRE-OP DIAGNOSIS: Incomplete , heavy vaginal bleeding TISSUE SUBMITTED: Products of conception MICROSCOPIC DIAGNOSIS Endometrium, curettage: Chorionic villi, decidualized stroma and trophoblastic cells consistent with products of conception. AM:sy 06/23/2020 MICROSCOPIC DESCRIPTION Slides are reviewed. GROSS DESCRIPTION Received in fixative is one container labeled with the patient's name and designated products of conception. The specimen consists of multiple irregular fragments of pink-red soft tissue that in aggregate measure 6 x 5 x 1 cm. tissue is not identified. Service Team Leader tissue is submitted in two cassettes. / SJ:sy 06/22/20 TC:5 CPT: 27622
--- NOTE | 2020-06-22 06:22 | PCM.HP.BLA ---
History and Physical Date of Admission: 06/22/20 34-year-old presents to the emergency room with heavy vaginal bleeding. She was seen in the office yesterday on 09/21/2020 diagnosed with a missed AB at approximately 6 weeks 3 days. Patient reports bleeding started heavy passing large clots. She presented to the emergency room where they confirmed this finding. She has a stable hemoglobin and hematocrit. Patient reports some cramping. She denies any chest pain shortness of breath or dizziness at this time. PMedHx: none Sochx: does not smoke Surgical Hx: C/s x 1 All: Codeine Exam: gen: female with large amount of bright red vaginal bleeding. VS: stable in ER a/P: with incomplete , heavy vaginal bleeding consent obtained for suction D&C. Pt was counseled on risks of surgery including but not limited to bleeding, infection, uterine perforation with subsequent injury to surrounding structures including bladder, bowel, vessels. Also reviewed the risk of uterine scarring. Sent for blood transfusion if indicated. Blood type she is Rh+. OR team notified.
--- NOTE | 2020-06-22 06:26 | DCINST_ITS ---
Discharge Diet: No Restrictions Discharge Activity: Return to Normal Activity, May Shower, May Take a Tub Bath - in 2 weeks. Allergies/Adverse Reactions: Allergies codeine Adverse Reaction (Verified 04/11/19 19:55) Nausea/Vom/Diarrhea Medications to take at Discharge Iron 04/11/19 Levothyroxine 04/11/19 Tablet 04/11/19 Primary Care Physician: Lauren Ramirez DO [Primary Care Provider] - Test Results: Test results from this visit will be discussed in further detail at your follow- up appointment, if applicable. Please Follow Up With: Gela Bunch MD When: as scheduled on 06/29/20
--- NOTE | 2020-06-22 06:26 | PCM.OPRPT ---
Report of Operation Date of Procedure: 06/22/20 - start: 637 end time: 639 Pre-Operative Diagnosis: incomplete , heavy vaginal bleeding Post-Operative Diagnosis: same Surgery/Procedure Performed:: Suction Dilation and Curettage Description of Surgical Findings:: Cervix dilated, large clots in vault. 8 tristanian suction catheter used. Type of Anesthesia:: MAC Special Medications: none Specimen's removed: Retained POC Drains: none Estimated Blood Loss (mL): 100 Fluids Replaced: 500 Description of Procedure: After informed consent was obtained patient was taken to OR and placed in supine position. Anesthesia was given. patient was placed in yellow fin stirrups and prepped and draped in normal sterile fashion. bladder was drained with straight catheter with approximately 75cc of clear yellow urine expelled. Weighted speculum placed in posterior fornix of vaginal, single tooth tenaculum was used to gently grasped anterior lip of cervix. Cervix was already dilated. A 8mm tristanian suction catheter was placed. suction curettage performed until no tissue was expelled and cavity was deemed empty. Gentle sharp curettage revealed empty cavity. The tissue was then sent to pathology for examination. No complications. At this time procedure was deemed complete and successful. Tenaculum removed, speculum removed. Good hemostasis appreciated. Vaginal sweep was negative. Instrument and lap count correct x 2. I anticipate normal postoperative course. Grafts/Implants Used: none - Complications none - Admit VTE Documentation VTE Present on Admission: Yes VTE Mechan Device Prophylaxis: SCD's VTE Pharm Prophylaxis ordered?: No
[2020-06-22 07:20] LABS: Hematocrit 36.7 % (37-47); Hemoglobin 11.3 g/dL (12.0-15.0); Mean Corp Hgb Conc 30.8 g/dL (32-36); Mean Corpuscular Hgb 26.6 pg (27.0-32.0); Mean Corpuscular Volume 86.4 fL (81-99); Mean Platelet Vol. 9.2 fl (6.2-12.0); Platelet Count 244 K/mm3 (150-450); RBC Distribution Width CV 15.6 % (11.6-14.6); RBC Distribution Width SD 49.5 fl (35.1-43.9); Red Blood Count 4.25 M/mm3 (4.2-5.4); White Blood Count 9.7 K/mm3 (4.4-11.0)
--- NOTE | 2020-06-22 09:02 | SUR.PHASEII ---
[facility] CALLED AND THERE WILL BE NO DONATION MADE D/T GESTATIONAL AGE AND OK TO RELEASE BODY.
--- NOTE | 2020-06-22 09:14 | SUR.PHASEII ---
BP RECHECKED AFTER INITIAL BP BEING LOW. HER BP IS 105/63, PULSE IS 71. I SAT HER ON THE EDGE OF THE BED AND NO DIZZINESS REPORTED. I THEN STOOD HER AND SAT HER BACK DOWN. SHE THEN STARTED FEELING DIZZY. I LAYED HER BACK DOWN AND WILL RECHECK HER AGAIN IN 30 MINUTES TO SEE HOW SHE DOES WITH HER VITALS AND STANDING.
== END 2020-06-22 11:50 | disposition home or self-care (01) ==
LOC: ED 05:41 → SDC 06:10 → AC 12:21
PROVIDERS: Emergency Provider Emergency Medicine; PCP Family Medicine; Visit Provider Obstetrics & Gynecology
PROC: (CPT 59812; principal; 2020-06-22 06:05)
DX: O03.4 Incomplete spontaneous abortion without complication (principal)
CPT/HCPCS: 59812; 80048; 80076; 85025; 85027; 86850; 86900; 86901; 88305; 99284; J7030; J7120; A4216; J2405

== ENCOUNTER 2021-04-07 16:50 | Outpatient (CLI) | payer BC, SELFPAY ==
[2021-04-07 17:20] VITALS: BMI 53.5
[2021-04-07 17:30] VITALS: TEMP 36.1; O2SAT 99
[2021-04-07 17:36] VITALS: PULSE 76; O2SAT 99
[2021-04-07 17:40] VITALS: BP 120/71; PULSE 79
[2021-04-07 17:55] VITALS: BP 119/72; PULSE 83
[2021-04-07 18:05] LABS: Hematocrit 33.1 % (37-47); Hemoglobin 10.1 g/dL (12.0-15.0); Mean Corp Hgb Conc 30.5 g/dL (32-36); Mean Corpuscular Hgb 24.6 pg (27.0-32.0); Mean Corpuscular Volume 80.7 fL (81-99); Mean Platelet Vol. 9.7 fl (6.2-12.0); Platelet Count 226 K/mm3 (150-450); RBC Distribution Width CV 19.4 % (11.6-14.6); RBC Distribution Width SD 56.3 fl (35.1-43.9); White Blood Count 8.6 K/mm3 (4.4-11.0)
[2021-04-07 18:10] VITALS: BP 117/73; PULSE 80
[2021-04-07 18:18] LABS: Protein, Urine (Random) 13.4 mg/dL (<11.9); Protein:Creat Ratio 163 mg/g CRE (0-200)
[2021-04-07 18:24] VITALS: BP 118/60; PULSE 77
[2021-04-07 18:25] LABS: AST(SGOT) 8 U/L (15-37); Alanine Aminotransfer ALT/SGPT 12 U/L (13-56); Creatinine, Serum 0.62 mg/dL (0.55-1.02); EST Glomerular Filtration Rate 116 mL/min (>60); Est Glom Filt Rate - Afr Amer 141 mL/min (>60); Estimated Creatinine Clearance 109.36 ml/min; Uric Acid 5.3 mg/dL (2.6-6.0)
--- NOTE | 2021-04-07 18:35 | OB.TRI.NOTE ---
HPI - General HPI Narrative LAURA LARA, is a 35 F who presents with elevated BP at home. Maternal Data Information Final HANNAH: 06/06/21 Gestational age: 31&3 PFSH PFSH Home Medications aspirin [Baby Aspirin] 81 mg PO DAILY 04/07/21 [History Last Taken 04/06/21 22:00] ferrous sulfate 325 mg PO BID 04/07/21 [History Last Taken 04/07/21 10:00] levothyroxine 50 mcg PO DAILY 04/07/21 [History Last Taken 04/07/21 07:00] vit-iron fum-folic ac [Prena-Tab] 1 tab PO DAILY 04/07/21 [History Last Taken 04/07/21 10:00] sertraline [Zoloft] 100 mg PO DAILY 04/07/21 [History Last Taken 04/06/21 22:00] Allergy/AdvReac Type Severity Reaction Status Date / Time codeine AdvReac Nausea/Vom/ Verified 04/11/19 19:55 Diarrhea Surgical History (Updated 06/22/20 @ 05:[address] Tu Laws, DO) Gastric bypass status for obesity Social History Smoking Status: Never smoker History Elective abortions Hx Para 0 Spontaneous abortions Hx # Term Pregnancies Ectopic pregnancies Hx # Pregnancies Multiple births # of living children NST FHR Rate Baby A Baseline: 120 Variability:: Moderate Accelerations:: 15 x 15 Decelerations:: Variable NST Reactive:: Yes Uterine Activity:: Irregular Assessment & Plan (1) Elevated blood pressure affecting in third trimester, antepartum: COMMENT: 31&3 PLAN: BP's & labs normal on L&D Reactive NST Follow up in office for routine PNC
== END 2021-04-07 23:59 | disposition home or self-care (01) ==
LOC: WPOUT 17:11 → WP 17:12
PROVIDERS: PCP Family Medicine; Visit Provider Obstetrics & Gynecology
DX: O16.9 Unspecified maternal hypertension, unspecified trimester (principal); Z3A.00 Weeks of gestation of pregnancy not specified; Z98.84 Bariatric surgery status; Z79.82 Long term (current) use of aspirin; Z79.899 Other long term (current) drug therapy
CPT/HCPCS: 36415; 59025; 59050; 82565; 82570; 84156; 84450; 84460; 84550; 85027; 99218; G0378

== ENCOUNTER 2021-05-17 16:48 | Inpatient (IN) | payer BC, SELFPAY ==
[2021-05-17] VITALS (17 sets, daily range): BP systolic 118–134; BP diastolic 51–76; PULSE 63–77; RESP 16–20; TEMP 35.8–36.6; O2SAT 97–100; BMI 55.4
[2021-05-17] MEDS: 0.9% Saline Lock 10 ML Syringe IV (15:55)
[2021-05-17 16:07] LABS: Hematocrit 37.5 % (37-47); Hemoglobin 12.2 g/dL (12.0-15.0); Mean Corp Hgb Conc 32.5 g/dL (32-36); Mean Corpuscular Hgb 26.2 pg (27.0-32.0); Mean Corpuscular Volume 80.5 fL (81-99); Mean Platelet Vol. 9.5 fl (6.2-12.0); Platelet Count 229 K/mm3 (150-450); RBC Distribution Width CV 18.1 % (11.6-14.6); Red Blood Count 4.66 M/mm3 (4.2-5.4)
[2021-05-17 16:23] LABS: Protein, Urine (Random) 82.7 mg/dL (<11.9); Protein:Creat Ratio 378 mg/g CRE (0-200)
[2021-05-17 16:28] LABS: AST(SGOT) 11 U/L (15-37); Alanine Aminotransfer ALT/SGPT 10 U/L (13-56); Creatinine, Serum 0.67 mg/dL (0.55-1.02); EST Glomerular Filtration Rate 107 mL/min (>60); Est Glom Filt Rate - Afr Amer 129 mL/min (>60); Uric Acid 5.9 mg/dL (2.6-6.0)
[2021-05-17] MEDS: Lactated Ringers 1,000 ML 999 ML IV (16:45)
[2021-05-17] MEDS: Sodium Citrate/Citric Acid 30 ML UDC PO (17:12)
[2021-05-17] MEDS: Acetaminophen 500 MG Tablet 1000 MG PO (17:12)
--- NOTE | 2021-05-17 17:33 | HP.PCM.OB_ITS ---
HPI - General General Date of Admission: 05/17/21 HPI Narrative LAURA LARA, is a 35-year-old 3 para 1-0-1-1 who presents at 37-1/7 weeks gestation complaining of a headache. She was seen yesterday for evaluation found to have protein creatinine ratio of 300. Her blood pressures been increasing. She also has a moderate persistent headache all day. She was given Tylenol now is mild. She denies any visual changes or epigastric pain. She said good movement. She denies any vaginal bleeding or leaking of fluid. is given complicated to date by hypothyroidism, maternal obesity with BMI 55, and history of previous section Maternal Data Information Final HANNAH: 06/06/21 Gestational age: 37 1/7 [facility] Medical History (Updated 05/17/21 @ 17:[address] Janet Myers MD) Anxiety Asthma Gestational HTN Headache macrosomia depression Pre-eclampsia Thyroid disorder Home Medications aspirin [Baby Aspirin] 81 mg PO DAILY 04/07/21 [History Last Taken 05/16/21 21:00] ferrous sulfate 650 mg PO BID 04/07/21 [History Last Taken 05/16/21 21:00] levothyroxine 50 mcg PO DAILY 04/07/21 [History Last Taken 05/16/21 07:30] vit-iron fum-folic ac [Prena-Tab] 2 tab PO DAILY 04/07/21 [History Last Taken 05/16/21 21:00] sertraline [Zoloft] 100 mg PO DAILY 04/07/21 [History Last Taken 05/16/21 21:00] Allergy/AdvReac Type Severity Reaction Status Date / Time codeine AdvReac Nausea/Vom/ Verified 05/17/21 16:18 Diarrhea Surgical History (Updated 05/17/21 @ 17:[address] Janet Myers MD) Gastric bypass status for obesity Previous section Social History Smoking Status: Never smoker History Elective abortions Hx Para 1 Spontaneous abortions Hx # Term Pregnancies Ectopic pregnancies Hx # Pregnancies Multiple births # of living children ROS Constitutional Constitutional: Denies fatigue, fever(s) or malaise Eyes Eyes: Denies change in vision Cardiovascular Cardiovascular: Denies chest pain, dyspnea or lightheadedness Respiratory/Chest Respiratory/Chest: Denies cough or dyspnea Gastrointestinal Gastrointestinal: Denies change in bowel habits Genitourinary Genitourinary: Denies burning urination or genital lesions Integumentary Integumentary: Denies rash Neurologic Neurologic: Denies confusion, dizziness, headache(s), numbness or weakness Vital Signs Vital Signs Vital Signs: 05/17/21 15:52 05/17/21 15:53 05/17/21 16:10 Temperature 97.4 F L Temperature Source Temporal Pulse Rate 69 65 67 Respiratory Rate Blood Pressure 127/76 H 128/66 H Blood Pressure Mean BP Systolic 127 128 BP Diastolic 76 66 Blood Pressure Source Blood Pressure Position Blood Pressure Location Pulse Ox 98 98 Oxygen Delivery Method 05/17/21 16:26 05/17/21 17:08 05/17/21 17:09 Temperature 97.9 F Temperature Source Temporal Pulse Rate 67 71 73 Respiratory Rate 20 H Blood Pressure 123/66 H 122/72 H Blood Pressure Mean 88 BP Systolic 123 122 BP Diastolic 66 72 Blood Pressure Source Monitor Blood Pressure Position Semi-Fowlers Blood Pressure Location Right Arm Pulse Ox 100 Oxygen Delivery Method Room Air Weight Weight: 146.5 kg Body Mass Index (BMI) 55.4 Physical Exam Const alert and no apparent distress General Appearance: cooperative HEENT normocephalic Resp normal respiratory effort Cardio regular rate GI soft to palpation GI Narrative: gravid, nontender, appropriate for gestational age Extremity no calf tenderness General Extremity: edema Skin no wounds Rashes: No rashes noted Psych activity/motor behavior normal Labs Labs Labs: Blood Type A POSITIVE Antibody Screen NEGATIVE Hct 37.5 % (37-47) Hgb 12.2 g/dL (12.0-15.0) Rhogam given: No Assessment & Plan (1) Pre-eclampsia affecting childbirth: PLAN: Response alternatives to repeat section were discussed with the patient, questions were answered to her satisfaction she desires to proceed. In addition she desires stairs and sterilization in the form of a bilateral salpingectomy. She understands is permanent, irreversible risk of failure and regret. She desires to proceed with this. At this point she has preeclampsia with mild symptoms. Her headache was alleviated with Tylenol. If severe symptoms will initiate magnesium prophylaxis. (2) 37 weeks gestation of : (3) Previous delivery affecting : (4) Maternal obesity syndrome in third trimester: (5) BMI 50.0-59.9, adult: (6) High risk multigravida in third trimester: (7) Request for sterilization:
[2021-05-17] MEDS: Lactated Ringers 1,000 ML 150 ML IV (18:08)
--- NOTE | 2021-05-17 19:55 | FALS_PTH ---
PATIENT: LAURA LAAR LOC: [facility] U#:[id number] AGE/SX: 35/F ROOM: WP010 RE05/17/[address]: Dr. Janet Myers MD : 1985 BED: 1 DIS: 05/19/2021 SPEC #: [id number] RECD: 05/17/21 21:56 STATUS: AMINATA HAMMER #: [id number] EDGAR: 05/17/21 19:[address]: Janet Myers DEPT: SURGICAL PATHOLOGY RECD BY: Carin Rooney ENTERED: 05/18/21 09:16 SP TYPE: FALL TUBES OTHR DR: Dr. Lauren Ramirez, DO Tissues: Fallopian tube Procedures: Surgery Specimen Level II HEADER OPERATION: Tubal ligation PRE-OP DIAGNOSIS: Sterilization TISSUE SUBMITTED: Fallopian tubes, right tube has suture MICROSCOPIC DIAGNOSIS Right fallopian tube, salpingectomy: Complete cross-section with no pathologic change. Benign paratubal cyst. Left fallopian tube, salpingectomy: Complete cross-section with no pathologic change. AM:sy 05/19/2021 MICROSCOPIC DESCRIPTION Slides are reviewed. GROSS DESCRIPTION Received in fixative is one container labeled with the patient's name and designated bilateral fallopian tubes, one with suture. The specimen consists of two fallopian tubes with an average length of 6 cm and has an average diameter of 1 cm. Both fallopian tubes have normal fimbriated ends. No mass lesions are identified. The fallopian tube with suture contains a smooth, glistening cyst measuring 1 cm and containing clear fluid. The cyst is adjacent to the fimbrial end. [employer] Captain sections are submitted in two cassettes as follows: 1 - fallopian tube with suture, 2 - the other fallopian tube. / AM:sy 05/18/2021 TC:5 CPT: 08031 x2
--- NOTE | 2021-05-17 20:33 | OP.PCM_ITS ---
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 She was prepped and draped in the dorsal supine position with a leftward tilt. A Pfannenstiel skin incision was made approximately 2 cm above the symphysis pubis and carried through to underlying layer fascia with the scalpel. The fascia was incised incised in the midline and extended laterally with the Norman scissors. The fascia was dissected off the rectus muscles with blunt and sharp dissection. The rectus muscles were in the midline and the peritoneum was entered bluntly. The peritoneal incision was stretched and the bladder blade was placed. The Derek O retractor was placed in the usual sterile fashion. Care was taken to ensure no tissue was trapped beneath it. The uterine incision was made in a low transverse fashion with the scalpel and extended superiorly and inferiorly with blunt dissection. The amniotic membranes were ruptured bluntly and clear amniotic fluid returned. The infant was noted to be breech. I was unable to engage the breech. Therefore both feet were grasped and brought out. The legs were brought out. The was then turned to back up. The arms were swept out individually. The head was delivered in a flexed position with 2 fingers on the maxilla for traction. The head delivered easily with fundal pressure in the standard fashion. The mouth and nares were bulb suctioned. The cord was clamped and cut as the was stimulated. Cord clamping was delayed. The infant was handed off to the waiting nursing staff. The placenta was delivered with fundal massage and gentle traction in the standard fashion. The uterus was left in the peritoneal cavity and cleared of all clots and debris. The cervix was dilated with a ring forcep. The uterine incision was closed with #1 Vicryl in a running locked fashion. A second layer of the same suture was used in an imbricating fashion. The incision was examined and was found to be hemostatic. The left tube was identified and followed out to fimbriated end. The LigaSure device was used to clamp, seal and transect the antimesenteric portion of the tube to the cornual insertion. The LigaSure device was then used to clamp, seal and transect the tube from the cornual insertion. Excellent hemostasis was noted. The same procedure was performed on contralateral side. The Derek O retractor was removed. some Carter was placed over the uterine incision the rectus muscles were examined and any bleeding was Bovie cauterized. One of the light handles then fell onto the surgical field. Did not fall into the wound. It was quickly removed and towel was placed over the area. The parietal peritoneum and rectus muscles were closed en bloc with an 0 Vicryl running suture. The surgical teams outer gloves were then changed. The rectus fascia was examined and any bleeding was Bovie cauterized and the rectus fascia was closed with looped #1 PDS suture suture in a running standard fashion. The subcutaneous tissue was examining and any bleeding was Bovie cauterized. The subcutaneous tissue was reapproximated with 3-0 Vicryl suture in 2 layers. The skin was closed in a subcuticular fashion . I performed the entire procedure with assistance. All sponge, lap, and needle counts were correct. The patient was taken to her room for recovery in a stable condition. The TEXTILE SUPERVISOR provided tissue retraction, tissue manipulation, and assistance with visualization during the procedure. Presentation: Positive for Complete Breech Amniotic Membrane Rupture Type: Artificial Amniotic Fluid Description: Clear Placental Delivery Description: Expressed Placenta Disposition: [facility] Specimen(s) Sent to Pathology: Bilateral fallopian tubes Cord Vessel Description: 3 Vessels Cord Entanglement: None A Gender: Male (Daigle) (1 minute): 8 (5 minute): 9 Delayed Cord Clamping: No Complications Complications: none
[2021-05-17] MEDS: Oxytocin 30 units/NS 500 ml 30 UNITS/500 ML IV.SOLN 167 UNITS IV (20:45)
[2021-05-17] MEDS: Ketorolac 30 MG/ML Syringe IV (22:30)
[2021-05-17 22:35] LABS: Pathology Specimen OB SEE PATHOLOGY REPORT
[2021-05-17] MEDS: oxyCODONE 5 MG Tablet PO (22:49)
[2021-05-18] VITALS (9 sets, daily range): BP systolic 106–133; BP diastolic 49–69; PULSE 64–94; RESP 16–20; TEMP 35.9–36.7; O2SAT 96–99
[2021-05-18] MEDS: Lactated Ringers 1,000 ML 100 ML IV (00:40)
[2021-05-18] MEDS: Acetaminophen 500 MG Tablet 1000 MG PO ×4 (01:28→22:08)
[2021-05-18] MEDS: HYDROmorphone 1 MG/ML Syringe IV (01:30)
[2021-05-18] MEDS: oxyCODONE 5 MG Tablet PO ×4 (03:38→22:08)
[2021-05-18] MEDS: 0.9% Saline Lock 10 ML Syringe IV ×3 (04:41→18:31)
[2021-05-18] MEDS: Ondansetron 4 MG/2 ML Vial IV (04:41)
[2021-05-18] MEDS: Ketorolac 30 MG/ML Syringe IV ×3 (05:41→18:25)
[2021-05-18] MEDS: Levothyroxine 50 MCG Tablet PO (06:33)
[2021-05-18 07:20] LABS: Hematocrit 31.4 % (37-47); Hemoglobin 10.2 g/dL (12.0-15.0); Mean Corp Hgb Conc 32.5 g/dL (32-36); Mean Corpuscular Hgb 26.8 pg (27.0-32.0); Mean Corpuscular Volume 82.6 fL (81-99); Mean Platelet Vol. 9.6 fl (6.2-12.0); Platelet Count 167 K/mm3 (150-450); RBC Distribution Width SD 54.3 fl (35.1-43.9)
[2021-05-18] MEDS: Sertraline 100 MG Tablet PO (09:39)
[2021-05-18] MEDS: Senna/Docusate Sodium 1 Tablet PO (09:39)
[2021-05-18] MEDS: Enoxaparin 40 MG/0.4 ML Syringe SC ×2 (09:39→22:09)
--- NOTE | 2021-05-18 12:58 | PCM.PN.OB ---
Subjective Subjective She is doing well. Headache has improved. No vision changes. Having some gas pain and discomfort with incision. Ambulating voiding without difficulty. No nausea or vomiting. No lightheadedness or dizziness when she is up walking. Lochia is normal. She is pumping. Objective Data Objective Data Vital Signs: Vital Signs Temp Pulse Resp BP Pulse Ox 96.9 F L 94 20 H 117/68 98 05/18/21 12:10 05/18/21 12:10 05/18/21 12:10 05/18/21 12:10 05/18/21 12:10 Oxygen Delivery Method Room Air Weight: 322 lb 15.635 oz Body Mass Index (BMI) 55.4 Intake & Output: Intake and Output for Last 24 Hours 05/16/21 05/17/21 05/18/21 23:59 23:59 23:59 Intake Total 1740 / 1740 2946.67 / 2946.67 Output Total 175 / 175 875 / 875 Balance 1565 / 1565 2071.67 / 2071.67 Lab / Micro Data Result Diagrams: 05/18/21 07:15 05/17/21 15:55 Labs: Laboratory Results - last 24 hr 05/17/21 15:45: U Random Total Protein 82.7 H, Urine Creatinine 219.00, Protein/Creatinin Ratio 378 H 05/17/21 15:55: WBC 9.0, RBC 4.66, Hgb 12.2, Hct 37.5, MCV 80.5 L, MCH 26.2 L, MCHC 32.5, RDW Std Deviation 53.0 H, RDW Coeff of Tyrese 18.1 H, Plt Count 229, MPV 9.5 05/17/21 15:55: Creatinine 0.67, Estim Creat Clear Calc 101.20, Est GFR (MDRD) Af Amer 129, Est GFR (MDRD) Non-Af 107, Uric Acid 5.9, AST 11 L, ALT 10 L 05/17/21 15:55: Blood Type A POSITIVE, Antibody Screen NEGATIVE 05/18/21 07:15: WBC 10.0, RBC 3.80 L, Hgb 10.2 L, Hct 31.4 L, MCV 82.6, MCH 26.8 L, MCHC 32.5, RDW Std Deviation 54.3 H, RDW Coeff of Tyrese 18.0 H, Plt Count 167, MPV 9.6 Micro: Microbiology 05/17/21 15:47 Nasal Secretion SARS-CoV-2 Antigen (Rapid) - Final Physical Exam Narrative Patient up walking halls comfortably. Assessment & Plan (1) BMI 50.0-59.9, adult: (2) 37 weeks gestation of : (3) Pre-eclampsia affecting childbirth: (4) Elevated blood pressure affecting in third trimester, antepartum: COMMENT: 31&3 (5) Delivery by section: PLAN: - Pt doing well. No pre e symptoms this morning. BP's are WNL. Baby in special care nursery. Pumping. S/p sterilization for control. Cont routine post op care and monitoring BP's and for pre e symptoms.
--- NOTE | 2021-05-18 13:34 | CASEMGMT ---
Social Work Assessment Labor and Delivery Unit Date/Time of Referral: 05/18/21, 8:05am Referred by: Janet Myers MD Date/Time of Intervention: 05/18/21, 1:15pm Reason for Referral: history of depression, baby transferred to [facility] History Obtained from: MOB, MARIANNE's cousin Ada present for some of conversation also Household composition: MOB Sonia, FOB Joel, Son Kong(age 2), and now baby Pilo. MOB and FOB have been together 10 years Parent/guardian Status: MOB and FOB have custody of both children Medical History: Baby: Born 05/17/21, 7lbs, 15 oz. As per MOB, baby having difficulty with breathing and sent to [facility]. As per MOB, he is not out of the fajardo yet for being intubated, but for now is on O2. He was born at 37 weeks. Nurse Receptionist: Dr. Mota MOB: depression, anxiety, pre-eclampsia, thyroid disorder Educational Status: MOB and FOB both have associates degrees Financial Status: No concerns. FOB works in IT. 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 She does plan to return to work Supplies: They have all needed supplies including car seats, bassinet, crib, clothing, diapers. They have access to formula and bottles if needed, MOB plans to breast feed. MARIANNE states that she supplemented with their first child. Childcare/Caregivers: Family helps, also they have a babysister. Kong is with his grandparents at present. Transportation: They have 2 vehicles Programs/agencies involved: None Children Services/legal issues: None Behavioral Health Issues: Substance abuse: No history for FOB or MOB, no drug screens completed on this admission on MARIANNE. Mental Health History: MARIANNE confirms history of anxiety, depression and depression. She takes Zoloft, started about 8 months after Kong was born. She also sees a counselor, and has since she started going through fertility treatments. MARIANNE states to be doing well at this time in regard to the depression. No safety concerns at this time. Family/Social Stressors: None reported Support Systems: cousin Ada who is here with her, great grandparents who live across the street, parents, other family also Depression and Anxiety/Safe Sleeping/Shaken Baby: SW reviewed and gave information on all of these topics, and reviewed information on in particular. SW reminded MOB of symptoms to watch for. MOB plans to continue to follow up w/her counselor, and sees her PCP every three months to check in and adjust meds as needed. SW also did give MOB a list of local counseling agencies as it includes [facility]--SW pointed this out to her and explained they do have a 24 hour hotline if needed. Assessment: MARIANNE appropriate, answered all questions completely. We spoke about her baby being in SCN. She states she cried all day yesterday, but is reassured as her is with the baby. Ada, MARIANNE's cousin/best friend is here w/MOB supporting her. MARIANNE does want to get up to see the baby as soon as possible but also wants to make sure her pain is under control before she leaves. She knows that her is with the baby and at this time seems okay with this, seems aware she needs to recover a bit more before being discharged. Support offered to MOB. Plan: MOB to be discharged from here, and it is anticipated baby will go home with MOB and FOB once baby is discharged from [facility]. No further social service needs anticipated at this time. YECENIA Ramirez
[2021-05-19 02:00] VITALS: BP 132/68; PULSE 73; RESP 16; TEMP 36.4; O2SAT 99
[2021-05-19] MEDS: oxyCODONE 5 MG Tablet PO ×2 (04:33→10:13)
[2021-05-19] MEDS: Acetaminophen 500 MG Tablet 1000 MG PO ×2 (04:33→10:14)
[2021-05-19] MEDS: Levothyroxine 50 MCG Tablet PO (06:13)
--- NOTE | 2021-05-19 08:34 | PN_ITS ---
Progress Note Pain well controlled. Average lochia. Positive flatus no bowel movement. Mild headache this morning improved with Tylenol. Taking NSAIDs, Tylenol and oxycodone for pain. Able to ambulate and tolerate regular diet. Physical Exam Narrative lower extremeties:2+ edema, 3+ DTRs, no clonus, symmetrical Const alert General Appearance: cooperative GI GI Narrative: soft, moderate distention, fundus firm, appropriately tender. Abdominal bandage clean dry and intact Assessment & Plan Assessment/Plan (1) Delivery by section: PLAN: Postoperative day #2 status post delivery by repeat section for preeclampsia without severe features. Patient is doing well. Baby is in the NICU nursery at [facility]. Patient would like to be discharged home. Return for symptoms or signs of severe preeclampsia. Follow-up next week. Remove bandage in 3 days. Discharge instructions and prescriptions were reviewed. Mild acute blood loss anemia is appropriate for blood loss from surgery. (2) Request for sterilization: (3) Pre-eclampsia affecting childbirth:
--- NOTE | 2021-05-19 08:36 | PCM.DC.SUM ---
Providers Date of Admission: 05/17/21 Primary Care Physician: Dr. Lauren Ramirez, DO Reason For Visit: REPEAT C SECTION Diagnosis Discharge Diagnosis (1) Delivery by section: Status: Acute (2) Request for sterilization: Status: Acute Code(s): Z30.2 - Encounter for sterilization (3) Pre-eclampsia affecting childbirth: Status: Acute Code(s): O14.94 - Unspecified pre-eclampsia, complicating childbirth Medications at Discharge Home Medications ferrous sulfate 650 mg PO BID 04/07/21 levothyroxine 50 mcg PO DAILY 04/07/21 vit-iron fum-folic ac 2 tab PO DAILY 04/07/21 sertraline [Zoloft] 100 mg PO DAILY 04/07/21 naproxen 375 mg PO TID PRN 10 Days #30 tab 05/19/21 oxycodone 5 mg PO Q6H PRN PRN 7 Days #20 tablet 05/19/21 Hospital Course Operations - (Repeat low transverse section and bilateral salpingectomy) Procedures None Summary of Care Provided Hospital Course: 35-year-old female admitted at 37 weeks gestation with preeclampsia without severe features. She underwent repeat section and bilateral salpingectomy on 05/17/2021 without complications. Baby was transferred to the NICU for respiratory issues. By postoperative day #2 the patient's blood pressures were stable, she is not on medication. She desired discharge home. Discharge home with follow-up next week or return for symptoms of severe preeclampsia. Routine prescriptions and instructions reviewed. Weight / BMI Weight Weight: 146.5 kg Body Mass Index (BMI) 55.4 ABG / Lab / Microbiology Data Result Diagrams: 05/18/21 07:15 05/17/21 15:55 Microbiology: Microbiology 05/17/21 15:47 Nasal Secretion SARS-CoV-2 Antigen (Rapid) - Final D/C Instructions Discharge Diet: No restrictions May resume sexual activity in: 4-6 weeks Lifting Restrictions: 20 pounds Additional Activity Instructions: Nothing in the vagina for 4-6 weeks. You may return to work/school in 6 weeks. Call your doctor if your incision/area has: Continuous Slow Oozing, Sudden Increased Bleeding, Increased Pain/ Swelling, Increased Redness and Foul Smelling Discharge Call your doctor if you observe: Fever of 101 or Higher and Using more than 1 pad per hour (for 2 hours) Suture Line Care: Avoid Pulling/Pushing and Avoid Pinching/Bending Cleanse incision/area with: Keep Dressing Clean & Dry Please Follow Up With: Janet Myers MD When: Call to make an appointment for an incision check in 1-2 [phone]. You will need a post check in 6 weeks. Meaningful Use Info Meaningful Use Diagnoses (Choose all that apply): None applicable Discharge Plan Admission Admit Date/Time: 05/17/21 16:48 Primary Reason for Your Visit: delivery and tubal ligation Attending Provider: Janet Myers Primary Care Provider: Lauren Ramirez Discharge Orders/Prescriptions Prescriptions: New oxycodone 5 MG tablet 5 mg PO Q6H PRN PRN (Reason: severe pain) 7 Days Qty: 20 RF: 0 naproxen 375 mg tablet 375 mg PO TID PRN (Reason: pain) 10 Days Qty: 30 RF: 0 Continued levothyroxine 50 mcg Tablet 50 mcg PO DAILY RF: 0 vit-iron fum-folic ac 65 mg iron- 1 mg Tablet 2 tab PO DAILY RF: 0 sertraline [Zoloft] 100 mg Tablet 100 mg PO DAILY RF: 0 ferrous sulfate 325 mg (65 mg iron) Tablet 650 mg PO BID RF: 0 Discontinued aspirin [Baby Aspirin] 81 mg Tablet,Chewable 81 mg PO DAILY RF: 0 Referrals / Follow Up: Lauren Ramirez DO [Primary Care Provider] - Disposition Disposition (needs filled in before D/C Order can be placed): Home, Self Care
[2021-05-19 09:16] VITALS: BP 116/66; PULSE 80; RESP 18; TEMP 36.2; O2SAT 100
[2021-05-19] MEDS: Sertraline 100 MG Tablet PO (10:13)
[2021-05-19] MEDS: Enoxaparin 40 MG/0.4 ML Syringe SC (10:15)
[2021-05-19] MEDS: Senna/Docusate Sodium 1 Tablet PO (10:15)
== END 2021-05-19 12:30 | disposition home or self-care (01) | DRG 785 ==
LOC: WPOUT 16:49 → WP 16:51
PROVIDERS: Admitting Provider Obstetrics & Gynecology; PCP Family Medicine; Visit Provider Obstetrics & Gynecology
DX: O34.211 Maternal care for low transverse scar from previous cesarean delivery (principal); O14.94 Unspecified pre-eclampsia, complicating childbirth; E66.01 Morbid (severe) obesity due to excess calories; E03.9 Hypothyroidism, unspecified; F41.9 Anxiety disorder, unspecified; J45.909 Unspecified asthma, uncomplicated; O99.344 Other mental disorders complicating childbirth; Z3A.37 37 weeks gestation of pregnancy; O99.52 Diseases of the respiratory system complicating childbirth; O99.284 Endocrine, nutritional and metabolic diseases complicating childbirth; Z37.0 Single live birth; O99.214 Obesity complicating childbirth; Z79.899 Other long term (current) drug therapy; O32.1XX0 Maternal care for breech presentation, not applicable or unspecified; Z30.2 Encounter for sterilization; O99.844 Bariatric surgery status complicating childbirth
CPT/HCPCS: 36415; 59025; 59050; 82565; 82570; 84156; 84450; 84460; 84550; 85027; 86850; 86900; 86901; 87426; 88302; 99218; J7120; A4216; G0378; J2405

== ENCOUNTER 2024-11-28 06:26 | Day surgery (SDC) | payer OTHER, SELFPAY ==
--- NOTE | 2024-11-17 14:26 | HP.PCM_ITS ---
History and Physical Date of Admission: 11/20/24 HPI: The patient is a 39 year old female presenting for pre-operative visit. She is scheduled for TLH with cystoscopy, for dysmenorrhea, menorrhagia, malpositioned IUD on 11/20/24. Procedure discussed along with risks, benefits and complications. Other alternatives discussed for management. Consent form signed? Yes. ? ? PAST MEDICAL HISTORY PAST MEDICAL HISTORYDiagnosisDate?Abnormal Pap smear of cervix??Acquired hypothyroidism??- check TSH ?Amenorrhea, unspecified??- pt to track periods and we will discuss at next visit ?Anemia complicating , third trimester (HCC)01/28/2019?Binge eating disorder??Childhood asthma (HCC)??LES I (cervical intraepithelial neoplasia I)2006?COVID-19105/05/2019?With pneumonia?Exercise- induced asthma (HCC)07/16/2019?fatty liver??ueuofvlt6bq grade?growth plate right wrist-4 berkowitz accident?H/O bariatric derkams5912/13/2016?Dr. Katz, ?Hemangioma of liver??Infertility, female??Obesity??PCOS (polycystic ovarian syndrome)?? lfjrcdakfn68/12/2020?Primary acuqneqturjc94/06/2022?Seasonal allergies? ? ? PAST SURGICAL HISTORY PAST SURGICAL HISTORYProcedureLateralityDate?BARIATRIC SURGERY HX?12/13/2016? Sleeve. Dr. Katz? SNGL?04/12/2019?C/S low transverse?CAUTERY CERVIX CRYOCAUTERY INITIAL/REPEAT?2006? DELIVERY ONLY?05/17/2021?LTCS?D&C SUCTION?06/22/2020?incomplete ab?HERNIA REPAIR HX???INSERTION OF IUD?08/01/2023?REVISION OF FOOT EXJJAEljb11/15/2013?Ganglion Cyst/Bone Spur removed, Bone shaved. Left Foot Dr. Pickard?[id number]/22/2022?at second c/s?TONSILLECTOMY HX? CURRENT MEDICATIONS Current Outpatient MedicationsMedicationSigDispenseRefill?ergocalciferol 50,000 unit capsule (VITAMIN D2, DRISDOL)TAKE 1 CAPSULE BY MOUTH ONCE A WEEK4 capsule1?tirzepatide, weight loss (ZEPBOUND) 12.5 mg/0.5 mL pen injectorInject 12.5 mg subcutaneously one time a week.2 mL5?traZODone (DESYREL) 50 mg tabletTake 1 tablet by mouth daily at bedtime.30 fdppyn61?sertraline (ZOLOFT) 100 mg tabletTake 1 tablet by mouth once daily.90 tablet1?levothyroxine (SYNTHROID) 100 mcg tabletTake 1 tablet by mouth once daily.90 tablet3?levonorgestrel (MIRENA) 21 mcg/24 hours (8 yrs) 52 mg IUD1 Each by INTRAUTERINE route as directed.1 Each0?albuterol HFA (PROVENTIL HFA, VENTOLIN HFA) 90 mcg/actuation inhalerInhale 2 Puffs as instructed every 4 hours as needed for wheezing/shortness of breath.1 Each5?clotrimazole (LOTRIMIN, CLOTRIM) 1 % creamAPPLY TO AFFECTED AREA TWICE A DAY28.4 g2?No current facility- administered medications for this visit. ? ? ALLERGIES: Codeine and Lisinopril ? PERSONAL HISTORY: [SOCIAL HISTORY] [SOCIAL HISTORY] Social History Tobacco Use ? Smoking status: Never ? Smokeless tobacco: Never Vaping Use ? Vaping status: Never Used Substance Use Topics ? Alcohol use: Not Currently ? ? Comment: monthy use ? Drug use: Never ? FAMILY HISTORY: FAMILY HISTORY FAMILY HISTORY ProblemRelationAge of Onset?other (Diabetes mellitus)Father??other (Thyroid disorder)Father??Rheumatologic diseaseMother??other (Endometriosis)Mother??other (fibromyalgia)Mother??No Known ProblemsBrother??Colon CancerPaternal Grandfather??No Known ProblemsBrother??Rheumatologic diseaseMaternal Grandmother??CancerMaternal Grandfather?? Lung- Mesothelioma ? ? REVIEW OF SYMPTOMS: GENERAL: denies fevers or chills ENDOCRINOLOGY: has not been on steroids Cardiology : denies palpitations or chest pain Respiratory: denies SOB or cough Hematology: denies history of prolonged bleeding or easy bruising or VTE Allergy: Denies history of personal or family history of allergy to anesthesia ? PHYSICAL EXAMINATION: ? VITALS: Blood pressure 126/82, pulse 72, height 162.6 cm (5' 4), weight 119.7 kg (264 lb), last menstrual period 07/24/2024, SpO2 97%. ? GENERAL: The patient is well nourished, well hydrated in no acute distress. , The patient is oriented to time, place, and person. NECK: Supple. No lynphadenopathy, normal thyroid, no thyromegaly. LUNGS: Clear to auscultation bilaterally. no wheezes, rhonchi or rales HEART: Regular rate and rhythm, Normal heart sounds, and No murmurs or gallops ? ? Pelvic US 09/23/24: Impression 3D rendering of the uterus demonstrates a malpositioned IUD with the device positioned incorrectly, too low in the cavity. The uterus is anteverted and measures 95 mm x 49 mm x 60 mm. The myometrium is heterogeneous, asymmetrically thickened, bulky but no obvious fibroids are observed. These findings are indirect signs of adenomyosis but not diagnostic of adenomyosis. The endometrial thickness is 6.6 mm. The right ovary measures 18 mm x 31 mm x 30 mm. The left ovary measures 27 mm x 20 mm x 16 mm. There is no free fluid visualized. ? ? \IMPRESSION: dysmenorrhea, menorrhagia with irregular cycle and malpositioned IUD ? PLAN: The risks/benefits/alternatives and personal involved for the planned TLH with cystoscopy were reviewed with the patient. Her questions were answered to her satisfaction and she desires to proceed. Consent was signed. I reviewed with her postop instructions and expectations. ? Rx for oxycodone sent at preop w/ carolann ? I have reviewed and updated past medical and surgical history, medications and allergies This H&P was completed in my office on 11/13/24 Assessment & Plan Assessment/Plan (1) Menorrhagia: (2) Dysmenorrhea: (3) Malpositioned IUD:
[2024-11-25 12:46] LABS: Hematocrit 41.8 % (37-47); Hemoglobin 13.2 g/dL (12.0-15.0); Immature Granulocytes Count 0.030 X10^3/uL (0.0-0.0); Mean Corp Hgb Conc 31.6 g/dL (32-36); Mean Corpuscular Volume 84.4 fL (81-99); Mean Platelet Vol. 9.4 fl (6.2-12.0); NRBC Flagged by Analyzer 0 % (0-5); Platelet Count 246 K/mm3 (150-450); RBC Distribution Width CV 14.3 % (11.6-14.6); RBC Distribution Width SD 43.8 fl (35.1-43.9); Red Blood Count 4.95 M/mm3 (4.2-5.4); White Blood Count 8.6 K/mm3 (4.4-11.0)
[2024-11-25 13:46] LABS: Magnesium 2.1 mg/dL (1.5-2.2)
[2024-11-28] VITALS (18 sets, daily range): BP systolic 116–137; BP diastolic 73–93; PULSE 59–86; RESP 14–18; TEMP 36.1–36.3; O2SAT 97–100; BMI 45.8
--- OUTSIDE RECORDS SUMMARY | 2024-11-28 06:30 | XMS RPT_ITS | CCD ---
Author Organization [facility] Care Team Providers Care Wax Ball Knock Out Worker Name Role Phone PROVIDER, UNKNOWN Unavailable Unavailable PROVIDER, UNKNOWN Unavailable Unavailable PROVIDER, UNKNOWN Unavailable Unavailable PROVIDER, UNKNOWN Unavailable Unavailable Abbas, Mujjahid Unavailable Unavailable Abbas, Mujjahid Unavailable Unavailable Abbas, Mujjahid Unavailable Unavailable Trill WATCH REPAIR TECHNICIAN.Farheen VILLALOBOS Primary Care Provider Trill WATCH REPAIR TECHNICIAN.Farheen VILLALOBOS Primary Care Provider Trill WATCH REPAIR TECHNICIAN.Farheen VILLALOBOS Primary Care Provider Trill WATCH REPAIR TECHNICIAN.Farheen VILLALOBOS Primary Care Provider Trill WATCH REPAIR TECHNICIAN.Farheen VILLALOBOS Primary Care Provider Unavailable Primary Care Provider Unavailabl e TRILL, FARHEEN C Referring Unavailable TRILL, FARHEEN C Primary Care Unavailable TRILL, FARHEEN C Attending Unavailable TRILL, FARHEEN C Primary Care Unavailable TRILL, FARHEEN C Primary Care Unavailable TRILL, FARHEEN C Referring Unavailable TRILL, FARHEEN C Primary Care Unavailable TRILL, FARHEEN C Referring Unavailable FREDO AMES Attending Unavailable TRILL, FARHEEN C Attending Unavailable TRILL, FARHEEN C Primary Care Unavailable TRILL, FAHREEN C Attending Unavailable TRILL, FARHEEN C Primary Care Unavailable TRILL, FARHEEN C Referring Unavailable TRILL, FARHEEN C Primary Care Unavailable TRILL, FARHEEN C Primary Care Unavailable TRILL, FARHEEN C Referring Unavailable TRILL, FARHEEN C Primary Care Unavailable TRILL, FARHEEN C Referring Unavailable TRILL, FARHEEN C Primary Care Unavailable TRILL, FARHEEN C Referring Unavailable TRILL, FARHEEN C Referring Unavailable TRILL, FARHEEN C Primary Care Unavailable TRILL, FARHEEN C Attending Unavailable TRILL, FARHEEN C Primary Care Unavailable TRILL, FARHEEN C Primary Care Unavailable HUSNI, HASAN Referring Unavailable HUSNI, HASAN Referring Unavailable TRILL, FARHEEN C Primary Care Unavailable TRILL, FARHEEN C Primary Care Unavailable TRILL, FARHEEN C Referring Unavailable TRILL, FARHEEN C Primary Care Unavailable TRILL, FARHEEN C Attending Unavailable TRILL, FARHEEN C Referring Unavailable TRILL, FARHEEN C Referring Unavailable TRILL, FARHEEN C Primary Care Unavailable GONZALO HERNADEZ Attending Unavailabl e TRILL, FARHEEN C Primary Care Unavailable KOMAL BOOTH Attending Unavailable TRILL, FARHEEN C Primary Care Unavailable TRILL, FARHEEN C Primary Care Unavailable HUSCANDI RYDER Attending Unavailable TRILL, FARHEEN C Primary Care Unavailable [facility] Attending Unavailable TRILL, FARHEEN C Primary Care Unavailable HUSNI, HASAN Referring Unavailable TRILL, FARHEEN C Primary Care Unavailable KOMAL BOOTH Attending Unavailable TRILL, FARHEEN C Primary Care Unavailable TRILL, FARHEEN C Referring Unavailable TRILL, FARHEEN C Primary Care Unavailable [facility] Attending Unavailable TRILL, FARHEEN C Primary Care Unavailable KOMAL BOOTH Referring Unavailable TRILL, FARHEEN C Primary Care Unavailable KOMAL BOOTH Referring Unavailable TRILL, FARHEEN C Primary Care Unavailable KOMAL BOOTH Referring Unavailable TRILL, FARHEEN C Primary Care Unavailable CANDI SAHU Attending Unavailable TRILL, FARHEEN C Primary Care Unavailable GUERO GUILLEN Attending Unavailable FREDO AMSE Referring Unavailable TRILL, FARHEEN C Primary Care Unavailable PROVIDER, UNKNOWN Referring Unavailable TRILL, FARHEEN C Primary Care Unavailable PROVIDER, UNKNOWN Referring Unavailable TRILL, FARHEEN C Primary Care Unavailable PROVIDER, UNKNOWN Referring Unavailable TRILL, FARHEEN C Primary Care Unavailable GUERO GUILLEN Admitting Unavailable GUERO GUILLEN Attending Unavailable TRILL, FARHEEN C Primary Care Unavailable Gela Bunch Referring Unavail able Gela Bunch Attending Unavail able Trill, Farheen Primary Care Unavailable Allergies Allergy Classification Reported Allergen(s) Allergy Type Date of Onset Reaction(s) Facility Opioid Agonists (2 sources) Codeine Drug Allergy 1 Other: See Comments [facility] Work Phone: (5 sources) codeine; Translations: [CODEINE] Drug Allergy 1 VOMITING [facility] Repository (20 sources) Codeine Drug Allergy 1 Other: See Comments, Horacio [facility] Work Phone: (20 sources) Lisinopril; Translations: [LISINOPRIL] Drug Allergy 4 Cough [facility] (1 source) Lisinopril Drug Allergy 5 [facility] Repository Medications Current Medications Medication Drug Class(es) Dates Sig (Normalized) Sig (Original) acetaminophen 300 mg / butalbital 50 mg / caffeine 40 mg oral capsule (2 sources) Barbiturate, Central Nervous System Stimulant, Methylxanthine Start: 02-08-2024 End: 03-09-2024 take 1 capsule by mouth every four hours as needed for headache acetaminophen 300 mg-caffeine 40 mg-butalbital 50 mg (FIORICET) per capsule Indications: New daily persistent headache Take 1 capsule by mouth every 4 hours as needed for headache. 30 capsule 02/08/2024 03/09/2024 Active [id number] 200 actuat albuterol 0.09 mg/actuat metered dose inhaler (20 sources) beta2-Adrenergic Agonist Start: 07-16-2019 End: 01-30-2023 take 2 puff(s) by inhalation every four hours as needed for wheezing albuterol HFA (PROVENTIL HFA, VENTOLIN HFA) 90 mcg/actuation inhaler Inhale 2 Puffs as instructed every 4 hours as needed for wheezing/shortness of breath. 1 Each 5 01/30/2023 Active Comment on above: Inhale 2 Puffs as in structed every 4 hours as needed for Wheezing/Shortness of Breath. ALPRAZolam 0.5 mg oral tablet (1 source) Benzodiazepine Start: 11-30-2023 End: 12-03-2023 take 1-2 tablets by mouth once daily as needed for anxiety ALPRAZolam (XANAX) 0.5 mg tablet Indications: Anxiety Take 1-2 tablets by mouth once daily as needed for anxiety for up to 3 days. 6 tablet 11/30/2023 12/03/2023 Active amoxicillin 500 mg oral capsule (5 sources) Penicillin-class Antibacterial Start: 11-22-2021 End: 12-02-2021 take 1 capsule by mouth every eight hours amoxicillin (POLYMOX, AMOXIL) 500 mg capsule Take 1 capsule by mouth every 8 hours for 10 days. 30 capsule 0 11/22/2021 12/02/2021 Active Start: 08-03-2021 End: 08-13-2021 take 1 capsule by mouth every eight hours amoxicillin (POLYMOX, AMOXIL) 500 mg capsule Take 1 capsule by mouth every 8 hours for 10 days. 30 capsule 0 08/03/2021 08/13/2021 Comment on above: Take 1 capsule by mo [facility] every 8 hours for 10 days. amoxicillin 875 mg / clavulanate 125 mg oral tablet (1 source) Penicillin-class Antibacterial Start: 07-01-19 End: 07-08-19 take 1 tablet by mouth twice daily amoxicillin-clavulan ic acid (AUGMENTIN) 875-125 mg per tablet Indications: Acute otitis media, unspecified otitis media type , Acute non-recurrent maxillary sinusitis Take 1 tablet by mouth twice daily for 7 days. 14 tablet 0 06/30/2021 07/07/2021 Active Comment on above: Take 1 tablet [facility] twice daily for 7 days. azithromycin 250 mg oral tablet (12 sources) Macrolide Antimicrobial Start: 05-06-19 azithromycin (Zithromax) 250 mg tablet Indications: Acute maxillary sinusitis, recurrence not specified Please follow Z-priyanka package instructions 6 tablet 05/06/2024 Active Start: 05-08-2023 End: 08-06-2023 azithromycin (ZITHROMAX Z-PA K) 250 mg tablet 2 tablets by mouth first day then 1 tablet the next 4 days 6 tablet 0 05/08/2023 08/06/2023 Discontinued Comment on above: 2 tablets by mouth f irst day then 1 tablet the next 4 days busPIRone hydrochloride 5 mg oral tablet (6 sources) Start: 10-05-19 End: 01-03-20 take 1 tablet by mouth three times daily busPIRone (BUSPAR) 5 mg tablet Indications: Anxiety Take 1 tablet by mouth three times daily. 90 tablet 2 10/04/2021 01/02/2022 Active Comment on above: Take 1 tablet by yolanda three times daily. cephalexin 500 mg oral capsule (2 sources) Cephalosporin Antibacterial Start: 12-28-19 End: 01-04-20 take 1 capsule by mouth three times daily cephALEXin (KEFLEX) 500 mg capsule Indications: Acute cystitis with hematuria Take 1 capsule by mouth three times a day for 7 days. 21 capsule 0 12/27/2022 01/03/2023 Active Comment on above: Take 1 capsule by mo [facility] three times a day for 7 days. clotrimazole 10 mg/ml topical cream (20 sources) Azole Antifungal Start: 11-18-19 clotrimazole (LOTRIMIN) 1 % cream Apply to affected area two times a day. APPLY TO AFFECTED AREA 28.4 g 2 11/17/2024 Active Start: 09-21-2021 End: 11-17-2024 clotrimazole (LOTRIMIN, CLOT RIM) 1 % cream APPLY TO AFFECTED AREA TWICE A DAY 28.4 g 2 09/21/2021 11/17/2024 Discontinued Comment on above: APPLY TO AFFECTED AR EA TWICE A DAY doxycycline hyclate 100 mg oral capsule (3 sources) Tetracycline-class Drug Start: 02-07-20 End: 02-17-20 take 1 capsule by mouth twice daily doxycycline hyclate (VIBRAMYCIN) 100 mg capsule Indications: sinusitis Take 1 capsule by mouth twice daily for 10 days. 20 capsule 0 02/06/2022 02/16/2022 Active Comment on above: Take 1 capsule by [facility] twice daily for 10 days. ergocalciferol 1.25 mg oral capsule (20 sources) Provitamin D2 Compound Start: 10-08-19 End: 10-17-19 take 1 capsule by mouth every other week ergocalciferol 50,000 unit capsule (VITAMIN D2, DRISDOL) Indications: Vitamin D deficiency Take 1 capsule by mouth every other week. 10/07/2024 10/16/2024 Discontinued Start: 09-02-2024 End: 11-01-2024 take 1 capsule by mouth every week ergocalciferol 50,000 unit capsule (VITAMIN D2, DRISDOL) Indications: Vitamin D deficiency TAKE 1 CAPSULE BY MOUTH ONCE A WEEK 4 capsule 1 10/16/2024 Active fluconazole 150 mg oral tablet (2 sources) Azole Antifungal Start: 03-14-2024 End: 03-14-2024 take 1 tablet by mouth once fluconazole (DIFLUCAN) 150 mg tablet Take 1 tablet by mouth one time only for 1 dose. 1 tablet 03/14/2024 03/14/2024 Active 12 hr guaiFENesin 600 mg extended release oral tablet (3 sources) Start: 01-31-2022 End: 02-07-2022 take 1 tablet by mouth twice daily guaiFENesin (MUCINEX) 600 mg 12 hr tablet Indications: Viral URI Take 1 tablet by mouth twice daily for 7 days. 14 tablet 0 01/31/2022 02/07/2022 Active Comment on above: Take 1 tablet by [facility] twice daily for 7 days. levonorgestrel 0.414873 mg/hr intrauterine system (20 sources) Progestin, Progestin-containi ng Intrauterine Device Start: 08-01-2023 End: 07-30-2028 levonorgestrel (MIRENA) 21 mcg/24 hours (8 yrs) 52 mg IUD Indications: Encounter for IUD insertion 1 Each by INTRAUTERINE route as directed. 1 Each 08/01/2023 07/30/2028 Active levothyroxine sodium 0.1 mg oral tablet (20 sources) l-Thyroxine Start: 08-31-2023 End: 04-15-2024 take 1 tablet by mouth once daily levothyroxine (SYNTHROID) 100 mcg tablet Indications: Hypothyroidism, acquired Take 1 tablet by mouth once daily. 90 tablet 3 04/15/2024 Active Start: 02-21-2022 End: 11-27-2022 take 1 tablet by mouth once daily levothyroxine (SYNTHROID) 100 mcg tablet Indications: Hypothyroidism, acquired Take 1 tablet by mouth once daily. 90 tablet 3 08/29/2022 Active Start: 02-08-2022 End: 05-09-2022 take 1 tablet by mouth once daily levothyroxine (SYNTHROID) 75 mcg tablet Indications: Acquired hypothyroidism Take 1 tablet by mouth once daily. 90 tablet 0 02/08/2022 05/09/2022 Active Start: 06-29-2021 take 1 tablet by yolanda th once daily levothyroxine (SYNTHROID) 50 mcg tablet Indications: Acquired hypothyroidism Take 1 tablet by mouth once daily. 90 tablet 1 06/29/2021 Active Comment on above: Take 1 tablet by yolanda th once daily. metroNIDAZOLE 500 mg oral tablet (2 sources) Nitroimidazole Antimicrobial Start: 03-14-20 End: 03-21-20 take 1 tablet by mouth twice daily metroNIDAZOLE (FLAGYL) 500 mg tablet Indications: Retained tampon, sequela Take 1 tablet by mouth two times a day for 7 days. 14 tablet 03/14/2024 03/21/2024 Active nystatin [id number] unt/ml oral suspension (5 sources) Polyene Antifungal Start: 08-06-19 End: 09-05-19 take 5 mL by mouth four times daily nystatin (MYCOSTATIN) 100,000 unit/mL suspension Take 5 mL by mouth four times daily. Swish and swallow. 600 mL 0 08/06/2023 09/05/2023 Active ondansetron 4 mg oral tablet (5 sources) Serotonin-3 Receptor Antagonist Start: 11-14-19 take 1 tablet by mouth every eight hours as needed ondansetron (ZOFRAN) 4 mg tablet Take 1 tablet by mouth every 8 hours as needed for nausea/vomiting. 60 tablet 1 11/13/2024 Active oxyCODONE hydrochloride 5 mg oral tablet (5 sources) Opioid Agonist Start: 11-14-19 End: 11-19-19 take 1 tablet by mouth every eight hours as needed for pain oxyCODONE IR (ROXICODONE) 5 mg immediate release tablet Indications: Postoperative pain Take 1 tablet by mouth every 8 hours as needed for pain for up to 5 days. 12 tablet 11/13/2024 11/18/2024 Active Start: 08-31-2021 End: 09-05-2021 take 1 tablet by mouth every eight hours as needed for pain oxyCODONE IR (ROXICODONE) 5 mg immediate release tablet Indications: Acute pain of right knee Take 1 tablet by mouth every 8 hours as needed for pain for up to 5 days. 15 tablet 0 08/31/2021 09/05/2021 Comment on above: Take 1 tablet by yolanda every 8 hours as needed for pain for up to 5 days. phentermine hydrochloride 37.5 mg oral tablet (20 sources) Sympathomimetic Amine Anorectic Start: 07-09-19 End: 10-20-19 take 0.5 tablet by mouth once daily Phentermine HCl 37.5 mg tablet Indications: Class 3 obesity (HCC) , PCOS (polycystic ovarian syndrome) Take 0.5 tablets by mouth once daily for 60 days. BMI 48 15 tablet 1 08/21/2023 10/20/2023 Active Start: 03-27-2023 End: 07-09-2023 take 1 tablet by mouth once Phentermine HCl 37.5 mg ta blet Take 1 tablet by mouth every afternoon. 0 03/27/2023 07/09/2023 Discontinued (Other) Start: 02-20-2023 End: 03-22-2023 take 1 tablet by mouth once daily Phentermine HCl 37.5 mg tablet Indications: Class 3 obesity (HCC) , Insulin resistance , History of bariatric surgery Take 1 tablet by mouth once daily for 30 days. 30 tablet 0 02/20/2023 03/22/2023 Active Start: 01-02-2023 End: 02-01-2023 take 1 tablet by mouth once daily Phentermine HCl 37.5 mg tablet Indications: Class 3 obesity (HCC) , Insulin resistance , History of bariatric surgery Take 1 tablet by mouth once daily for 30 days. 30 tablet 0 01/02/2023 02/01/2023 Active Start: 09-18-2022 End: 11-17-2022 take 50-59.9 tablets by mouth once daily Phentermine HCl 37.5 mg tablet Indications: Class 3 obesity (HCC) , BMI 50.0-59.9, adult (HCC) , PCOS (polycystic ovarian syndrome) , Insulin resistance , History of bariatric surgery Take 1 tablet by mouth once daily for 60 days. 30 tablet 1 09/18/2022 11/17/2022 Active Comment on above: Take 1 tablet by [facility] once daily for 60 days. Take 1 tablet by [facility] once daily for 30 days. Take 1 tablet by [facility] every afternoon. Take 0.5 tablets by mouth once daily for 60 days. BMI 50. sertraline 100 mg oral tablet (20 sources) Serotonin Reuptake Inhibitor Start: 09-02-2024 End: 03-01-2025 take 1 tablet by mouth once daily sertraline (ZOLOFT) 100 mg tablet Take 1 tablet by mouth once daily. 90 tablet 1 09/02/2024 03/01/2025 Active Start: 02-20-2024 End: 10-12-2024 take 1 tablet by mouth once daily sertraline (ZOLOFT) 50 mg tablet Take 1 tablet by mouth once daily. 90 tablet 1 04/15/2024 09/02/2024 Discontinued Start: 06-29-2021 End: 12-26-2021 take 1.5 tablets by mouth once daily sertraline (ZOLOFT) 100 mg tablet Take 1.5 tablets by mouth once daily. 135 tablet 1 06/29/2021 10/04/2021 Discontinued Comment on above: Take 1.5 tablets by mouth once daily. tirzepatide, weight loss (ZEPBOUND) 12.5 mg/0.5 mL pen injector (20 sources) Start: 10-16-2024 End: 04-14-2025 tirzepatide, weight loss (ZEPBOUND) 12.5 mg/0.5 mL pen injector Indications: Class 3 severe obesity with serious comorbidity and body mass index (BMI) of 50.0 to 59.9 in adult, unspecified obesity type (HCC) Inject 12.5 mg subcutaneously one time a week. 2 mL 5 10/16/2024 04/14/2025 Active Start: 06-17-2024 End: 10-15-2024 tirzepatide, weight loss (ZE PBOUND) 12.5 mg/0.5 mL pen injector Indications: Class 3 severe obesity with serious comorbidity and body mass index (BMI) of 50.0 to 59.9 in adult, unspecified obesity type (HCC) Inject 12.5 mg subcutaneously one time a week. 0 06/17/2024 10/15/2024 Discontinued Start: 06-17-2024 End: 12-14-2024 tirzepatide, weight loss (ZE PBOUND) 12.5 mg/0.5 mL pen injector Indications: Class 3 severe obesity with serious comorbidity and body mass index (BMI) of 50.0 to 59.9 in adult, unspecified obesity type Inject 12.5 mg subcutaneously one time a week. 0 06/17/2024 12/14/2024 Active Start: 06-17-2024 End: 12-14-2024 tirzepatide, weight loss (ZE PBOUND) 12.5 mg/0.5 mL pen injector Indications: Class 3 severe obesity with serious comorbidity and body mass index (BMI) of 50.0 to 59.9 in adult, unspecified obesity type (HCC) Inject 12.5 mg subcutaneously one time a week. 0 06/17/2024 12/14/2024 Active tirzepatide, weight loss, (Zepbound) 7.5 mg/0.5 mL injection (1 source) Start: 04-07-2024 End: 10-04-2024 inject 7.5 mg by subcutaneous injection every week tirzepatide, weight loss, (Zepbound) 7.5 mg/0.5 mL injection Inject 7.5 mg under the skin once a week. 04/07/2024 10/04/2024 Active traMADol hydrochloride 50 mg oral tablet (4 sources) Opioid Agonist Start: 06-17-2024 End: 07-17-2024 take 1 tablet by mouth twice daily as needed traMADol (ULTRAM) 50 mg tablet Indications: Chronic midline low back pain without sciatica Take 1 tablet by mouth two times a day as needed for up to 30 days. 60 tablet 06/17/2024 07/17/2024 Active traZODone hydrochloride 50 mg oral tablet (20 sources) Serotonin Reuptake Inhibitor Start: 09-02-2024 take 1 tablet by mouth once daily at bedtime traZODone (DESYREL) 50 mg tablet Indications: Insomnia, unspecified type Take 1 tablet by mouth daily at bedtime. 30 tablet 11 09/02/2024 Active Completed/Discontinued Medications Medication Drug Class(es) Dates Sig (Normalized) Sig (Original) 12 hr buPROPion hydrochloride 90 mg / naltrexone hydrochloride 8 mg extended release oral tablet (14 sources) Opioid Antagonist, Aminoketone Start: 04-10-2022 End: 09-18-2022 take 50-59.9 tablets by mouth twice daily CONTRAVE 8-90 mg ER tablet Indications: Class 3 obesity (HCC) , BMI 50.0-59.9, adult (HCC) , PCOS (polycystic ovarian syndrome) , Insulin resistance Take two tablets by mouth twice a day 120 tablet 0 07/03/2022 09/18/2022 Discontinued Comment on above: Take 2 tablets by [facility] twice daily. Take two tablets by mouth twice a day Calcium Carbonate (18 sources) calcium carbonat e (CALCIUM 600 ORAL) Take by mouth. 0 Active Comment on above: Take by mouth. cyanocobalamin, vitamin B-12, (VITAMIN B12 ORAL) (4 sources) End: 08-31-2021 cyanocobalamin, vitamin B-12, (VITAMIN B12 ORAL) Take by mouth. 0 08/31/2021 Discontinued cyanocobalamin, vitamin B-12, (VITAMIN B12 ORAL) Take by mouth. 0 Active Comment on above: Take by mouth. dextromethorphan hydrobromide 3 mg/ml / promethazine hydrochloride 1.25 mg/ml oral solution (18 sources) Phenothiazine, Uncompetitive U-roassw-B-aspartate Receptor Antagonist, Sigma-1 Agonist Start : 05-08 End: 10-02 take 5 mL by mouth every twenty-four hours as needed Promethazine-DM (PHENERGAN-DM) 6.25-15 mg/5 mL syrup Take 5 mL by mouth at bedtime as needed for cough. 118 mL 0 08/06/2023 10/03/2023 Discontinued Comment on above: Take 5 mL by mouth a t bedtime as needed for cough. fluticasone propionate 0.05 mg/actuat metered dose nasal spray (20 sources) Corticosteroid Start : 01-31 End: 02-13 take 1 spray(s) nasal route twice daily fluticasone (FLONASE ALLERGY RELIEF) 50 mcg/actuation nasal spray Indications: Viral URI Use 1 [place] in each nostril twice daily. 1 Each 01/31/2022 02/14/2024 Discontinued Comment on above: Use 1 [place] in each nostril twice daily. hydroCHLOROthiazide 25 mg oral tablet (20 sources) Thiazide Diuretic Start : 02-20 End: 03-06 take 1 tablet by mouth once daily hydroCHLOROthiazide 25 mg tablet Indications: Primary hypertension take 1 tablet by mouth every day 90 tablet 1 02/20/2023 03/06/2023 Discontinued Start: 02-28-2022 End: 08-27-2022 take 1 tablet by mouth once daily hydroCHLOROthiazide 25 mg tablet Indications: Primary hypertension TAKE 1 TABLET BY MOUTH EVERY DAY 90 tablet 1 07/10/2022 Active Comment on above: Take 1 tablet by [facility] once daily. TAKE 1 TABLET BY YOLANDA TH EVERY DAY Iron Carbonyl (18 sources) iron,carbonyl (I JENNIE CHEWS ORAL) Take by mouth. 0 Active Comment on above: Take by mouth. lisinopril 10 mg oral tablet (18 sources) Angiotensin Converting Enzyme Inhibitor Start: 3 End: take 1 tablet by mouth once daily lisinopril (ZESTRIL) 10 mg tablet take 1 tablet by mouth every day 30 tablet 2 08/17/2023 08/29/2023 Discontinued Start: 05-29-2022 End: 05-29-2022 take 1 tablet by mouth once daily lisinopril (ZESTRIL, PRINIVIL) 10 mg tablet Indications: Primary hypertension Take 1 tablet by mouth once daily. 90 tablet 1 05/29/2022 05/29/2022 Discontinued Comment on above: Take 1 tablet by [facility]anda [facility] once daily. 24 hr metFORMIN hydrochloride 500 mg extended release oral tablet (15 sources) Biguanide Start: 07-09-19 End: 02-14-20 take 1 tablet by mouth once daily at dinner, then take 2 tablets by mouth once daily at dinner metFORMIN ER (GLUCOPHAGE XR) 500 mg 24 hr tablet Indications: Class 3 obesity , PCOS (polycystic ovarian syndrome) Take 1 tablet by mouth daily with dinner for 14 days, THEN 2 tablets daily with dinner. 180 tablet 1 07/09/2023 02/14/2024 Discontinued Comment on above: Take 1 tablet by y[facility]anda th daily with dinner for 14 days, THEN 2 tablets daily with dinner. ofloxacin 3 mg/ml ophthalmic solution (2 sources) Quinolone Antimicrobial Start: 08-04-19 End: 08-11-19 take 2 drop(s) into the eye(s) four times daily ofloxacin (OCUFLOX) 0.3 % ophthalmic solution Use 2 Drops in the left eye four times daily for 7 days. 5 mL 0 08/03/2021 08/10/2021 Comment on above: Use 2 Drops in the l eft eye four times daily for 7 days. omeprazole 40 mg delayed release oral capsule (20 sources) Proton Pump Inhibitor Start: 08-06-19 End: 07-29-19 take 1 capsule by mouth once daily omeprazole (PRILOSEC) 40 mg capsule TAKE 1 CAPSULE BY MOUTH EVERY DAY 90 capsule 1 08/30/2023 07/28/2024 Discontinued Start: 10-04-2021 End: 08-06-2023 take 1 capsule by mouth once daily omeprazole (PRILOSEC) 20 mg capsule Take 1 capsule by mouth once daily. 30 capsule 2 10/04/2021 08/06/2023 Discontinued Comment on above: Take 1 capsule by mo [facility] once daily. predniSONE 10 mg oral tablet (9 sources) Start: 08-06-2023 End: 10-03-2023 predniSONE (DELTASONE) 10 mg tablet Take 4 tablets for 3 days, then 2 tablets for 3 days, then 1 tablet for 3 days, then stop 21 tablet 0 08/06/2023 10/03/2023 Discontinued Start: 08-31-2021 End: 09-05-2021 take 1 tablet by mouth once daily predniSONE (DELTASONE) 20 mg tablet Indications: Acute pain of right knee Take 1 tablet by mouth once daily for 5 days. 5 tablet 0 08/31/2021 09/05/2021 Comment on above: Take 1 tablet by yolanda th once daily for 5 days. Ljsmrntm-Tp-Fin-Fe- FA ( VITAMIN) tab (14 sources) take 1 tablet by mouth once Qbvieaai-Ci-Ejp-Fe-FA ( VITAMIN) tab Take 1 tablet by mouth. 0 Active Comment on above: Take 1 tablet by yolanda th. Hrgbtxke-Vp-Crz-Fe- FA tab (4 sources) take 1 tablet by mouth once Ouhkzdbq-Sa-Peo-Fe-FA tab Take 1 tablet by mouth. 0 Active Comment on above: Take 1 tablet by yolanda th. tirzepatide, weight loss (ZEPBOUND) 7.5 mg/0.5 mL pen injector (10 sources) Start: 04-07-2024 End: 06-17-2024 tirzepatide, weight loss (ZEPBOUND) 7.5 mg/0.5 mL pen injector Indications: Obstructive sleep apnea , Class 3 severe obesity with serious comorbidity and body mass index (BMI) of 50.0 to 59.9 in adult, unspecified obesity type (HCC) Inject 7.5 mg subcutaneously one time a week. 6 mL 1 04/07/2024 06/17/2024 Discontinued Start: 04-07-2024 End: 10-04-2024 tirzepatide, weight loss (ZE PBOUND) 7.5 mg/0.5 mL pen injector Indications: Obstructive sleep apnea , Class 3 severe obesity with serious comorbidity and body mass index (BMI) of 50.0 to 59.9 in adult, unspecified obesity type (HCC) Inject 7.5 mg subcutaneously one time a week. 6 mL 1 04/07/2024 10/04/2024 Active Start: 03-24-2024 End: 04-07-2024 tirzepatide, weight loss (ZE PBOUND) 7.5 mg/0.5 mL pen injector Indications: Obstructive sleep apnea , Class 3 severe obesity with serious comorbidity and body mass index (BMI) of 50.0 to 59.9 in adult, unspecified obesity type (HCC) Inject 7.5 mg subcutaneously one time a week. 6 mL 1 03/24/2024 04/07/2024 Discontinued Start: 03-24-2024 End: 09-20-2024 tirzepatide, weight loss (ZE PBOUND) 7.5 mg/0.5 mL pen injector Indications: Obstructive sleep apnea , Class 3 severe obesity with serious comorbidity and body mass index (BMI) of 50.0 to 59.9 in adult, unspecified obesity type (HCC) Inject 7.5 mg subcutaneously one time a week. 6 mL 1 03/24/2024 09/20/2024 Active Start: 03-24-2024 End: 03-24-2024 tirzepatide, weight loss (ZE PBOUND) 7.5 mg/0.5 mL pen injector Indications: Obstructive sleep apnea , Class 3 severe obesity with serious comorbidity and body mass index (BMI) of 50.0 to 59.9 in adult, unspecified obesity type (HCC) Inject 7.5 mg subcutaneously one time a week. 6 mL 1 03/24/2024 03/24/2024 Discontinued topiramate 50 mg oral tablet (20 sources) Start: 07-09-2023 End: 02-14-2024 take 1 tablet by mouth once daily at bedtime topiramate (TOPAMAX) 50 mg tablet Indications: Class 3 obesity , PCOS (polycystic ovarian syndrome) Take 1 tablet by mouth daily at bedtime. 90 tablet 1 07/09/2023 02/14/2024 Discontinued Start: 01-02-2023 End: 07-09-2023 take 1 tablet by mouth once daily, then take 2 tablets by mouth once daily topiramate (TOPAMAX) 25 mg tablet Take 25 mg by mouth every night. After 14 days, increase to 50 mg by mouth every night. 60 tablet 2 02/20/2023 07/09/2023 Discontinued (Other) Comment on above: Take 1 tablet by yolanda th daily at bedtime. TAKE 1 TABLET BY YOLANDA TH EVERYDAY AT BEDTIME Take 25 mg by mouth every night. After 14 days, increase to 50 mg by mouth every night. Problems Active Problems Problem Classification Problem Date Documented Date Episodic/Chronic Anxiety disorders (3 sources) Anxiety; Translations: [Anxiety disorder, unspecified] Chronic Asthma (20 sources) Exercise-induced asthma; Translations: [Exercise induced bronchospasm] Onset: 0 07-16-2019 Chronic Complication of device; implant or graft (20 sources) Malposition of intrauterine contraceptive device; Translations: [Displacement of intrauterine contraceptive device, initial encounter] Onset: 5 09-25-2024 Episodic Deficiency and other anemia (1 source) Iron deficiency anemia; Translations: [Iron deficiency anemia, unspecified] Episodic Disorders of lipid metabolism (1 source) Hyperlipidemia; Translations: [Hyperlipidemia, unspecified] 10-03-2023 Chronic Essential hypertension (20 sources) Essential hypertension; Translations: [Essential (primary) hypertension] Onset: 2 Chronic Headache; including migraine (2 sources) New daily persistent headache; Translations: [New daily persistent headache (NDPH)] Onset: 4 02-08-2024 Chronic Immunizations and screening for infectious disease (1 source) Encounter for screening for human papillomavirus (HPV); Translations: [Screening for HPV (human papillomavirus)] Onset: 5 Episodic Malaise and fatigue (2 sources) Fatigue; Translations: [Other fatigue] Onset: 5 09-02-2024 Episodic Menstrual disorders (20 sources) Irregular periods; Translations: [Irregular menstruation, unspecified] Onset: 7 Resolved: 9 01-06-2019 Chronic Mycoses (1 source) Candidiasis of mouth; Translations: [Candidal stomatitis] 08-15-2023 Episodic Nausea and vomiting (1 source) Nausea; Translations: [Nausea] Episodic Nutritional deficiencies (5 sources) Vitamin D deficiency; Translations: [Vitamin D deficiency, unspecified] Onset: 5 09-02-2024 Chronic Other acquired deformities (3 sources) Disorder of skull; Translations: [Other acquired deformity of head] 09-02-2024 Episodic Other acquired deformities (1 source) Other acquired deformity of head; Translations: [Acquired deformity of skull] Onset: Episodic Other and unspecified benign neoplasm (20 sources) Hemangioma of liver; Translations: [Hemangioma of intra-abdominal structures] 04-07-2024 Episodic Other ear and sense organ disorders (1 source) Hearing loss in left ear; Translations: [Unspecified hearing loss, left ear] Chronic Other endocrine disorders (20 sources) Polycystic ovary syndrome; Translations: [Polycystic ovarian syndrome] Onset: 7 12-28-2016 Chronic Other endocrine disorders (1 source) Disorder of parathyroid gland; Translations: [Other specified disorders of parathyroid gland] 02-17-2024 Chronic Other endocrine disorders (4 sources) Hyperparathyroidism; Translations: [Hyperparathyroidism, unspecified] 03-11-2024 Chronic Other endocrine disorders (3 sources) Hyperparathyroidism, unspecified; Translations: [Hyperparathyroidism (HCC)] Onset: Chronic Other endocrine disorders (1 source) Primary hyperparathyroidism; Translations: [Primary hyperparathyroidism] 11-10-2024 Chronic Other endocrine disorders (1 source) Primary hyperparathyroidism; Translations: [Primary hyperparathyroidism (HCC)] Onset: Chronic Other female genital disorders (3 sources) Abnormal uterine bleeding; Translations: [Abnormal uterine and vaginal bleeding, unspecified] 06-20-2023 Chronic Other female genital disorders (1 source) Vaginal lesion; Translations: [Other specified noninflammatory disorders of vagina] 06-20-2023 Episodic Other female genital disorders (1 source) Vaginal odor; Translations: [Other specified noninflammatory disorders of vagina] 03-14-2024 Episodic Other gastrointestinal disorders (1 source) History of bypass of stomach; Translations: [Bariatric surgery status] 07-28-2024 Episodic Other injuries and conditions due to external causes (1 source) Tampon in vagina; Translations: [Foreign body in vulva and vagina, sequela] 03-14-2024 Episodic Other liver diseases (20 sources) Steatosis of liver; Translations: [Fatty (change of) liver, not elsewhere classified] Onset: 8 11-16-2017 Chronic Other lower respiratory disease (2 sources) Cough; Translations: [Acute cough] 05-08-2023 Episodic Other lower respiratory disease (2 sources) Cough; 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] 08-06-2023 Episodic Other lower respiratory disease (1 source) Ibagndkboou-vctqqewifo-a nzyme inhibitor adverse reaction; Translations: [Cough due to GEORGI inhibitor] 10-03-2023 Episodic Other nervous system disorders (3 sources) Other chronic pain; Translations: [Chronic midline low back pain without sciatica] Onset: 5 Chronic Other nervous system disorders (1 source) Impaired cognition; Translations: [Other symptoms and signs involving cognitive functions and awareness] 09-02-2024 Episodic Other nervous system disorders (1 source) Other symptoms and signs involving cognitive functions and awareness; Translations: [Brain fog] Onset: 5 Episodic Other nervous system disorders (1 source) Postoperative pain ; Translations: [Other acute postprocedural pain] 11-17-2024 Episodic Other nervous system disorders (1 source) Other acute postprocedural pain; Translations: [Postoperative pain] Onset: 5 Episodic Other non-traumatic joint disorders (3 sources) Pain in right knee; Translations: [Pain in joint, lower leg] Episodic Other non-traumatic joint disorders (1 source) Effusion of right knee joint; Translations: [Effusion, right knee] Episodic Other nutritional; endocrine; and metabolic disorders (20 sources) Severe obesity; Translations: [Morbid (severe) obesity due to excess calories] Onset: 7 05-03-2020 Chronic Other nutritional; endocrine; and metabolic disorders (20 sources) Insulin resistance; Translations: [Metabolic syndrome] Onset: 1 05-03-2020 Chronic Other nutritional; endocrine; and metabolic disorders (3 sources) Obese class I; Translations: [Obesity, unspecified] Chronic Other nutritional; endocrine; and metabolic disorders (8 sources) Obese class III; Translations: [Morbid (severe) obesity due to excess calories] Chronic Other nutritional; endocrine; and metabolic disorders (1 source) Morbid (severe) obesity due to excess calories; Translations: [Class 3 severe obesity with serious comorbidity and body mass index (BMI) of 50.0 to 59.9 in adult, unspecified obesity type (HCC)] Onset: 1 Chronic Other nutritional; endocrine; and metabolic disorders (2 sources) Body mass index (BMI) 50.0-59.9, adult; Translations: [Class 3 severe obesity with serious comorbidity and body mass index (BMI) of 50.0 to 59.9 in adult, unspecified obesity type (HCC)] Onset: 1 Chronic Other nutritional; endocrine; and metabolic disorders (1 source) Hypercalcemia; Translations: [Hypercalcemia] Onset: 4 Chronic Other skin disorders (2 sources) Neck swelling; Translations: [Localized swelling, mass and lump, neck] 09-21-2024 Episodic Other skin disorders (1 source) Localized swelling, mass and lump, neck; Translations: [Neck swelling] Onset: 5 Episodic Other upper respiratory disease (20 sources) Seasonal allergy; Translations: [Other seasonal allergic rhinitis] Onset: 0 07-16-2019 Chronic Other upper respiratory infections (9 sources) Acute maxillary sinusitis; Translations: [Acute maxillary sinusitis, unspecified] Episodic Otitis media and related conditions (1 source) Chronic mucoid otitis media of left middle ear; Translations: [Other chronic nonsuppurative otitis media, left ear] Chronic Otitis media and related conditions (2 sources) Acute otitis media; Translations: [Otitis media, unspecified, unspecified ear] Episodic Residual codes; unclassified (20 sources) Obstructive sleep apnea syndrome; Translations: [Obstructive sleep apnea (adult) (pediatric)] Onset: 7 01-18-2017 Chronic Residual codes; unclassified (1 source) Obstructive sleep apnea (adult) (pediatric); Translations: [Obstructive sleep apnea] Onset: 7 Chronic Residual codes; unclassified (1 source) Influenza-like symptoms; Translations: [Other general symptoms and signs] Episodic Residual codes; unclassified (1 source) Insomnia; Translations: [Insomnia, unspecified] 09-02-2024 Episodic Residual codes; unclassified (1 source) Insomnia, unspecified; Translations: [Insomnia, unspecified type] Onset: 5 Episodic Screening and history of mental health and substance abuse codes (4 sources) Patient encounter status; Translations: [Encounter for screening for depression] Episodic Spondylosis; intervertebral disc disorders; other back problems (20 sources) Degeneration of lumbar intervertebral disc; Translations: [Other intervertebral disc degeneration, lumbar region] Onset: 9 07-22-2018 Chronic Thyroid disorders (20 sources) Acquired hypothyroidism; Translations: [Hypothyroidism, unspecified] Onset: 7 08-08-2016 Chronic Unclassified (4 sources) Autogenerated Problem Onset: 5 11-02-2024 Unclassified (2 sources) Chronic midline low back pain without sciatica; Translations: [Chronic midline low back pain without sciatica] Onset: 5 Unclassified (1 source) Lumbar back pain; Translations: [Lumbar back pain] Onset: 5 Unclassified (1 source) Class 3 severe obesity with serious comorbidity and body mass index (BMI) of 50.0 to 59.9 in adult, unspecified obesity type (HCC); Translations: [Class 3 severe obesity with serious comorbidity and body mass index (BMI) of 50.0 to 59.9 in adult, unspecified obesity type (HCC)] Onset: 1 Unclassified (2 sources) 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 pain; Translations: [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 pain] Onset: 9 Unclassified (1 source) Class 3 severe obesity with serious comorbidity and body mass index (BMI) of 50.0 to 59.9 in adult, unspecified obesity type; Translations: [Class 3 severe obesity with serious comorbidity and body mass index (BMI) of 50.0 to 59.9 in adult, unspecified obesity type] Onset: 5 Viral infection (2 sources) Viral disease; Translations: [Viral infection, unspecified] 06-11-2023 Episodic Past or Other Problems Problem Classification Problem Date Documented Da te Episodic/Chronic Abdominal pain (20 sources) Epigastric pain; Translations: [Epigastric pain] Onset: 12-28-2016 Resolved: 05-20-2018 Episodic Complications of surgical procedures or medical care (20 sources) Wound pain ; Translations: [Other postprocedural complications of skin and subcutaneous tissue] Onset: 12-28-2016 Resolved: 05-20-2018 05-20-2018 Episodic Diabetes mellitus without complication (20 sources) Hyperglycemia; Translations: [Hyperglycemia, unspecified] Onset: 10-17-2016 10-17-2016 Episodic Female infertility (20 sources) Female infertility; Translations: [Female infertility, unspecified] Onset: 08-08-2016 Resolved: 01-06-2019 01-06-2019 Chronic Miscellaneous mental health disorders (20 sources) depression; Translations: [ depression] Onset: 01-05-2020 Resolved: 05-23-2021 05-23-2021 Episodic Nonmalignant breast conditions (20 sources) Breast lump; Translations: [Unspecified lump in the right breast, overlapping quadrants] Onset: 08-05-2024 06-04-2023 Episodic Other circulatory disease (20 sources) Elevated blood-pressure reading without diagnosis of hypertension; Translations: [Elevated blood-pressure reading, without diagnosis of hypertension] Onset: 02-06-2022 Episodic Other complications of (20 sources) Anemia in mother complicating , childbirth AND/OR puerperium; Translations: [Anemia complicating , third trimester] Onset: 01-28-2019 Resolved: 04-25-2019 04-25-2019 Chronic Other complications of (20 sources) Supervision of with history of infertility, first trimester; Translations: [Supervision of high-risk with history of infertility] Onset: 08-15-2018 Resolved: 04-25-2019 04-25-2019 Episodic Other complications of (20 sources) size does not accord with dates; Translations: [Uterine size-date discrepancy, third trimester] Onset: 03-10-2019 Resolved: 04-25-2019 04-25-2019 Episodic Other complications of (20 sources) H/O: miscarriage; Translations: [Supervision of with other poor reproductive or obstetric history, unspecified trimester] Onset: 10-07-2020 Resolved: 05-23-2021 05-23-2021 Episodic Other complications of (20 sources) Multigravida of advanced maternal age; Translations: [Supervision of elderly multigravida, unspecified trimester] Onset: 10-07-2020 Resolved: 05-23-2021 05-23-2021 Episodic Other connective tissue disease (20 sources) H/O: back problem; Translations: [Personal history of other diseases of the musculoskeletal system and connective tissue] Onset: 08-15-2018 02-11-2019 Episodic Other gastrointestinal disorders (20 sources) History of bariatric surgical procedure; Translations: [Bariatric surgery status] Onset: 08-15-2018 10-07-2020 Episodic Other liver diseases (20 sources) Liver mass; Translations: [Hepatomegaly, not elsewhere classified] Onset: 10-17-2016 10-17-2016 Episodic Other liver diseases (20 sources) Large liver; Translations: [Hepatomegaly, not elsewhere classified] Onset: 11-16-2017 Resolved: 01-06-2019 01-06-2019 Episodic Other nervous system disorders (20 sources) Paresthesia; Translations: [Paresthesia of skin] Onset: 07-22-2018 07-22-2018 Episodic Other nutritional; endocrine; and metabolic disorders (20 sources) Body mass index 40+ - severely obese; Translations: [Body mass index (BMI) 50.0-59.9, adult] Onset: 10-10-2016 Resolved: 05-20-2018 Chronic Other nutritional; endocrine; and metabolic disorders (20 sources) Obesity; Translations: [Obesity, unspecified] Onset: 05-17-2020 Resolved: 05-23-2021 08-08-2016 Chronic Other nutritional; endocrine; and metabolic disorders (20 sources) Morbid obesity; Translations: [Morbid (severe) obesity due to excess calories] Onset: 10-10-2016 Resolved: 10-17-2016 10-17-2016 Chronic Other nutritional; endocrine; and metabolic disorders (20 sources) H/O: hypothyroidism; Translations: [Personal history of other endocrine, nutritional and metabolic disease] Onset: 08-15-2018 10-07-2020 Episodic Other screening for suspected conditions (not mental disorders or infectious disease) (20 sources) Elevated C-reactive protein; Translations: [Elevated C-reactive protein (CRP)] Onset: 09-29-2016 09-29-2016 Episodic Previous (20 sources) ; Translations: [Maternal care for unspecified type scar from previous delivery] Onset: 05-17-2020 Resolved: 05-23-2021 05-23-2021 Episodic Residual codes; unclassified (20 sources) H/O: depression; Translations: [Personal history of other complications of , childbirth and the puerperium] Onset: 05-17-2020 10-07-2020 Episodic Residual codes; unclassified (20 sources) FH: Congenital heart disease; Translations: [Family history of other congenital malformations, deformations and chromosomal abnormalities] Onset: 08-15-2018 Resolved: 05-23-2021 05-23-2021 Episodic Spondylosis; intervertebral disc disorders; other back problems (20 sources) Chronic thoracic back pain; Translations: [Pain in thoracic spine] Onset: 07-22-2018 Resolved: 01-06-2019 07-22-2018 Episodic Results Test Name Value Interpretation Reference Range Facility CBC W/Diff, Automatedon 09-0 Absolute Lymph 2.74 X10 3/uL Normal 0.83-4.51 [facility] Comment on above: Performed By: #### Bessie TSPAT, L100.0100 #### [facility] [address] [place], [address] Absolute Neut 5.2 X10 3/uL Normal 2.0-7.7 [facility] Comment on above: Performed By: #### Bessie TSPAT, L100.0100 #### [facility] [address] [place], [address] Basophils/100 WBC (Bld) 0.5 % Normal 0-1 [facility] Comment on above: Performed By: #### Bessie TSPAT, L100.0100 #### [facility] [address] [place], [address] Eosinophils/100 WBC (Bld) 1.9 % Normal 0-5 [facility] Comment on above: Performed By: #### B TSPAT, L100.0100 #### [facility] [address] [place], [address] Erythrocyte distribution width (RBC) [Ratio] 14.3 % Normal 11.6-14.6 [facility] Comment on above: Performed By: #### B TSPAT, L100.0100 #### [facility] [address] [place], [address] Hematocrit (Bld) [Volume fraction] 41.8 % Normal 37-47 [facility] Comment on above: Performed By: #### B TSPAT, L100.0100 #### [facility] [address] [place], [address] Hemoglobin (Bld) [Mass/Vol] 13.2 g/dL Normal 12.0-15.0 [facility] Comment on above: Performed By: #### B TSPAT, L100.0100 #### [facility] [address] [place], [address] IG% 0.300 Normal 0.0-0.9 [facility] Comment on above: Result Comment: IG% - Immature Granulocytes (promyelocytes, myelocytes and metamyelocytes) > 1% indicates that a LEFT SHIFT is Present. Performed By: #### B TSPAT, L100.0100 #### [facility] [address] [place], [address] Lymphocytes/100 WBC (Bld) 31.8 % Normal 19-41 [facility] Comment on above: Performed By: #### B TSPAT, L100.0100 #### [facility] [address] [place], [address] MCH (RBC) [Entitic mass] 26.7 pg Low 27.0-32.0 [facility] Comment on above: Performed By: #### B TSPAT, L100.0100 #### [facility] [address] [place], [address] MCHC (RBC) [Mass/Vol] 31.6 g/dL Low 32-36 [facility] Comment on above: Performed By: #### B TSPAT, L100.0100 #### [facility] [address] [place], [address] MCV (RBC) [Entitic vol] 84.4 fL Normal 81-99 [facility] Comment on above: Performed By: #### B TSPAT, L100.0100 #### [facility] [address] [place], [address] Monocytes/100 WBC (Bld) 5.0 % Normal 0-10 [facility] Comment on above: Performed By: #### B TSPAT, L100.0100 #### [facility] [address] [place], [address] Neutrophils/100 WBC (Bld) 60.5 % Normal 47-70 [facility] Comment on above: Performed By: #### B TSPAT, L100.0100 #### [facility] [address] [place], [address] Nucleated RBC (Bld) [#/Vol] 0 10*3/uL Normal 0-5 [facility] Comment on above: Performed By: #### B TSPAT, L100.0100 #### [facility] [address] [place], [address] Platelet mean volume (Bld) [Entitic vol] 9.4 fL Normal 6.2-12.0 [facility] Comment on above: Performed By: #### B TSPAT, L100.0100 #### [facility] [address] [place], [address] Platelets (Bld) [#/Vol] 246 10*3/uL Normal 150-450 [facility] Comment on above: Performed By: #### B TSPAT, L100.0100 #### [facility] [address] [place], [address] RBC (Bld) [#/Vol] 4.95 10*6/uL Normal 4.2-5.4 [facility] Comment on above: Performed By: #### B TSPAT, L100.0100 #### [facility] [address] [place], [address] RDW SD 43.8 fl Normal 35.1-43.9 [facility] Comment on above: Performed By: #### B TSPAT, L100.0100 #### [facility] [address] [place], [address] WBC (Bld) [#/Vol] 8.6 10*3/uL Normal 4.4-11.0 [facility] Comment on above: Performed By: #### B TSPAT, L100.0100 #### [facility] [address] [place], [address] Magnesiumon 11-25-2024 Magnesium [Mass/Vol] 2.1 mg/dL Normal 1.5-2.2 [facility] Comment on above: Performed By: #### L 501.5200, L501.9520 #### [facility] [address] [place], [address] Thyroid Stim Hormone (TSH)on 11-25-2024 TSH 3.410 uIU/mL Normal 0.300-4.200 [facility] Comment on above: Performed By: #### L 501.5200, L501.9520 #### [facility] [address] [place], [address] Type AND Screen - PAT ONLYon 11-25-2024 Ab SCREEN GEL Negative Normal [facility] Comment on above: Order Comment: Surge ry Date: 11/28/24 Reason for Laboratory Test PREOP [id number] No N N S TOTAL LAP HYSTERECTOMY Performed By: #### B TSPAT, L100.0100 #### [facility] [address] [place], [address] NM PARATHYROID W SPECT/CTon 11-19-2024 NM PARATHYROID W SPECT/CT * * *Final Report* * * DATE OF EXAM: Nov 19 2024 4:21PM KERWIN 0089 - NM PARATHYROID W SPECT/CT / PROCEDURE REASON: E21.3-Hyperparathyroidism (HCC) * * * * Physician Interpretation * * * * EXAM: PARATHYROID SCAN WITH SPECT-CT HISTORY: Hyperparathyroidism. TECHNIQUE: 226 microcuries of I-123 sodium iodide administered PO, followed by thyroid scan. 32.0 mCi Tc-99m sestamibi was given administered IV. SPECT imaging of the skull base through lower thorax performed. Low dose, non-contrast CT of the same body region was obtained for attenuation correction and anatomic localization. Fused images were created and sent to the imaging archive. CT Dose-Length Product (DLP): 97.23 mGy*cm CT Dose Reduction Employed: Automated exposure control (AEC) CORRELATION: POC Thyroid/Parathyroid ultrasound 11/10/2024 RESULTS: I-123 images: Homogeneous thyroid uptake. No focal abnormality. Subtraction SPECT-CT images: Focus of post-subtraction sestamibi activity corresponding to a 7 x 8 mm soft tissue nodule posterior to the right thyroid lobe (series 1 and fused image [address] Findings: No acute findings. [employer] (topogram) images: Not provided. 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 [employer]: [facility] Transcribe Date/Time: Nov 19 2024 4:44P Dictated by : JEANINE BALLESTEROS MD This examination was interpreted and the report reviewed and electronically signed by: JEANINE BALLESTEROS MD on Nov 19 2024 4:50PM EST [id number] [facility] SPECT+CT Parathyroid glandon 11-19-2024 IMPRESSION: Scintigraphic findings of a right neck parathyroid adenoma, as described. [employer] Coach: [facility] Transcribe Date/Time: Nov 19 2024 4:44P Dictated by : JEANINE BALLESTEROS MD This examination was interpreted and the report reviewed and electronically signed by: JEANINE BALLESTEROS MD on Nov 19 2024 4:50PM [facility] * * *Final Report* * * DATE OF EXAM: Nov 19 2024 4:21PM KERWIN 0089 - NM PARATHYROID W SPECT/CT / PROCEDURE REASON: E21.3-Hyperparathyroidism (HCC) * * * * Physician Interpretation * * * * EXAM: PARATHYROID SCAN WITH SPECT-CT HISTORY: Hyperparathyroidism. TECHNIQUE: 226 microcuries of I-123 sodium iodide administered PO, followed by thyroid scan. 32.0 mCi Tc-99m sestamibi was given administered IV. SPECT imaging of the skull base through lower thorax performed. Low dose, non-contrast CT of the same body region was obtained for attenuation correction and anatomic localization. Fused images were created and sent to the imaging archive. CT Dose-Length Product (DLP): 97.23 mGy*cm CT Dose Reduction Employed: Automated exposure control (AEC) CORRELATION: POC Thyroid/Parathyroid ultrasound 11/10/2024 RESULTS: I-123 images: Homogeneous thyroid uptake. No focal abnormality. Subtraction SPECT-CT images: Focus of post-subtraction sestamibi activity corresponding to a 7 x 8 mm soft tissue nodule posterior to the right thyroid lobe (series 1 and fused image [address] Findings: No acute findings. Sales Representative Adding Machines (topogram) images: Not provided. [facility] Provider, [facility] - 11/19/2024 * * *Final Report* * * DATE OF EXAM: Nov 19 2024 4:21PM KERWIN 0089 - NM PARATHYROID W SPECT/CT / PROCEDURE REASON: E21.3-Hyperparathyroidism (HCC) * * * * Physician Interpretation * * * * EXAM: PARATHYROID SCAN WITH SPECT-CT HISTORY: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 Tyrer-Cuzick (TC) risk assessment model, this patient has a 10.9% lifetime risk of developing breast cancer, meaning they are at average risk for developing breast cancer. However, this is only an estimate based on available history provided on the patient's questionnaire. We encourage all patients to talk with their providers about these results, further recommendations for managing breast health, and appropriate supplemental screening options if the patient has dense breast tissue. Interpreting Radiologist: Jitendra Singer M.D. Electronically signed on: 09/23/2024 Men'S Swim Coach: BILLY Transcribe Date/Time: Sep 23 2024 10:37A Dictated by: JITENDRA SINGER MD This examination was interpreted and the report reviewed and electronically signed by: JITENDRA SINGER MD on Sep 23 2024 11:08AM [facility] DIVISION OF RADIOLOGY * * *Final Report* * * DATE OF EXAM: Sep 23 2024 10:45AM [facility] 0628 - FRED [place] W LINDA LT / PROCEDURE REASON: Abnormal mammogram * * * * Physician Interpretation * * * * RESULT: [facility] [address] [place] [address] #[id number] - [facility] DIAG W LINDA LT #[id number] - FRED US BREAST LTD LT HISTORY: 38 year-old patient presents for diagnostic evaluation of focal pain in the left breast. Patient states no personal history of breast cancer. COMPARISON STUDIES: The present examination has been compared to prior imaging studies dated 03/02/2020 (ultrasound), 03/02/2020 (mammogram), 06/20/2023 (ultrasound) and 06/20/2023 (mammogram). MAMMOGRAM TECHNIQUE: The study was acquired using full field digital technology and interpreted from soft copy. Digital Breast Tomosynthesis (DBT) images were obtained and used to assist in the interpretation of this examination. MAMMOGRAM FINDINGS: There are scattered areas of fibroglandular density. There is no mammographic abnormality at the site of clinical concern. No suspicious masses, calcifications or other abnormalities are seen in the left breast. ULTRASOUND TECHNIQUE: Targeted ultrasound of the indicated area was performed. Caicedo scale images were saved. ULTRASOUND FINDINGS: No abnormality is seen at the site of clinical concern. There are no suspicious findings in the imaged area. DIVISION OF RADIOLOGY Provider, [facility] - 09/23/2024 * * *Final Report* * * DATE OF EXAM: Sep 23 2024 10:45AM [facility] 0628 - FRED DIAG W LINDA LT / PROCEDURE REASON: Abnormal mammogram * * * * Physician Interpretation * * * * RESULT: [facility] [address] [place] [address] #[id number] - FRED DIAG W LINDA LT #[id number] - FRED US BREAST LTD LT HISTORY: 38 year-old patient presents for diagnostic evaluation of focal pain in the left breast. Patient states no personal history of breast cancer. COMPARISON STUDIES: The present examination has been compared to prior imaging studies dated 03/02/2020 (ultrasound), 03/02/2020 (mammogram), 06/20/2023 (ultrasound) and 06/20/2023 (mammogram). MAMMOGRAM TECHNIQUE: The study was acquired using full field digital technology and interpreted from soft copy. Digital Breast Tomosynthesis (DBT) images were obtained and used to assist in the interpretation of this examination. MAMMOGRAM FINDINGS: There are scattered areas of fibroglandular density. There is no mammographic abnormality at the site of clinical concern. No suspicious masses, calcifications or other abnormalities are seen in the left breast. ULTRASOUND TECHNIQUE: Targeted ultrasound of the indicated area was performed. Caicedo scale images were saved. ULTRASOUND FINDINGS: No abnormality is seen at the site of clinical concern. There are no suspicious findings in the imaged area. IMPRESSION IMPRESSION: There is no mammographic or sonographic evidence of malignancy. Since the patient states a history of bloody discharge, surgical consultation is suggested. Return to annual screening mammogram is recommended. Annual mammogram will be due at age 40. BI-RADS Category 2: Benign RISK: Based on the Tyrer-Cuzick (TC) risk assessment model, this patient has a 10.9% lifetime risk of developing breast cancer, meaning they are at average risk for developing breast cancer. However, this is only an estimate based on available history provided on the patient's questionnaire. We encourage all patients to talk with their providers about these results, further recommendations for managing breast health, and appropriate supplemental screening options if the patient has dense breast tissue. Interpreting Radiologist: Jitendra Singer M.D. Electronically signed on: 09/23/2024 Men'S Swim Coach: BILLY Transcribe Date/Time: Sep 23 2024 10:37A Dictated by: JITENDRA SINGER MD This examination was interpreted and the report reviewed and electronically signed by: JITENDRA SINGER MD on Sep 23 2024 11:08AM [facility] FRED DIAG W LINDA LTon 09-23-2 025 [facility] DIAG W LINDA LT * * *Final Report* * * DATE OF EXAM: Sep 23 2024 10:45AM [facility] 0628 - [facility] DIAG W LINDA LT / PROCEDURE REASON: Abnormal mammogram * * * * Physician Interpretation * * * * RESULT: [address] [place] [address] #[id number] - [facility] HUY W LINDA LT #[id number] - [facility] US BREAST LTD LT HISTORY: 38 year-old patient presents for diagnostic evaluation of focal pain in the left breast. Patient states no personal history of breast cancer. COMPARISON STUDIES: The present examination has been compared to prior imaging studies dated 03/02/2020 (ultrasound), 03/02/2020 (mammogram), 06/20/2023 (ultrasound) and 06/20/2023 (mammogram). MAMMOGRAM TECHNIQUE: The study was acquired using full field digital technology and interpreted from soft copy. Digital Breast Tomosynthesis (DBT) images were obtained and used to assist in the interpretation of this examination. MAMMOGRAM FINDINGS: There are scattered areas of fibroglandular density. There is no mammographic abnormality at the site of clinical concern. No suspicious masses, calcifications or other abnormalities are seen in the left breast. ULTRASOUND TECHNIQUE: Targeted ultrasound of the indicated area was performed. Caicedo scale images were saved. ULTRASOUND FINDINGS: No abnormality is seen at the site of clinical concern. There are no suspicious findings in the imaged area. IMPRESSION: There is no mammographic or sonographic evidence of malignancy. Since the patient states a history of bloody discharge, surgical consultation is suggested. Return to annual screening mammogram is recommended. Annual mammogram will be due at age 40. BI-RADS Category 2: Benign RISK: Based on the Tyrer-Cuzick (TC) risk assessment model, this patient has a 10.9% lifetime risk of developing breast cancer, meaning they are at average risk for developing breast cancer. However, this is only an estimate based on available history provided on the patient's questionnaire. We encourage all patients to talk with their providers about these results, further recommendations for managing breast health, and appropriate supplemental screening options if the patient has dense breast tissue. Interpreting Radiologist: Jitendra Singer M.D. Electronically signed on: 09/23/2024 Men'S Swim Coach: BILLY Transcribe Date/Time: Sep 23 2024 10:37A Dictated by: JITENDRA SINGER MD This examination was interpreted and the report reviewed and electronically signed by: JITENDRA SINGER MD on Sep 23 2024 11:08AM EST [id number] Normal [facility] US BREAST LTD LTon 09-23 [facility] US BREAST LTD LT * * *Final Report* * * DATE OF EXAM: Sep 23 2024 11:04AM [facility] 0593 - [facility] US BREAST LTD LT / PROCEDURE REASON: Nipple discharge * * * * Physician Interpretation * * * * [place] [address] #[id number] - [facility] DIAG W LINDA LT #[id number] - [facility] [employer] BREAST LTD LT HISTORY: 38 year-old patient presents for diagnostic evaluation of focal pain in the left breast. Patient states no personal history of breast cancer. COMPARISON STUDIES: The present examination has been compared to prior imaging studies dated 03/02/2020 (ultrasound), 03/02/2020 (mammogram), 06/20/2023 (ultrasound) and 06/20/2023 (mammogram). MAMMOGRAM TECHNIQUE: The study was acquired using full field digital technology and interpreted from soft copy. Digital Breast Tomosynthesis (DBT) images were obtained and used to assist in the interpretation of this examination. MAMMOGRAM FINDINGS: There are scattered areas of fibroglandular density. There is no mammographic abnormality at the site of clinical concern. No suspicious masses, calcifications or other abnormalities are seen in the left breast. ULTRASOUND TECHNIQUE: Targeted ultrasound of the indicated area was performed. Caicedo scale images were saved. ULTRASOUND FINDINGS: No abnormality is seen at the site of clinical concern. There are no suspicious findings in the imaged area. IMPRESSION: There is no mammographic or sonographic evidence of malignancy. Since the patient states a history of bloody discharge, surgical consultation is suggested. Return to annual screening mammogram is recommended. Annual mammogram will be due at age 40. BI-RADS Category 2: Benign RISK: Based on the Tyrer-Cuzick (TC) risk assessment model, this patient has a 10.9% lifetime risk of developing breast cancer, meaning they are at average risk for developing breast cancer. However, this is only an estimate based on available history provided on the patient's questionnaire. We encourage all patients to talk with their providers about these results, further recommendations for managing breast health, and appropriate supplemental screening options if the patient has dense breast tissue. Interpreting Radiologist: Jitendra Singer M.D. Electronically signed on: 09/23/2024 Men'S Swim Coach: BILLY Transcribe Date/Time: Sep 23 2024 10:56A Dictated by : JITENDRA SINGER MD This examination was interpreted and the report reviewed and electronically signed by: JITENDRA SINGER MD on Sep 23 2024 11:08AM EST [id number] Normal [facility] No Panel InformationOrdered By: [facility] Provider on 09-23-2024 [facility] No Panel Informationon 09-23 Radiology Study observation (narrative) [facility] US Breast - left limitedon 0 09-23-2024 IMPRESSION: There is no mammographic or sonographic evidence of malignancy. Since the patient states a history of bloody discharge, surgical consultation is suggested. Return to annual screening mammogram is recommended. Annual mammogram will be due at age 40. BI-RADS Category 2: Benign RISK: Based on the Tyrer-Cuzick (TC) risk assessment model, this patient has a 10.9% lifetime risk of developing breast cancer, meaning they are at average risk for developing breast cancer. However, this is only an estimate based on available history provided on the patient's questionnaire. We encourage all patients to talk with their providers about these results, further recommendations for managing breast health, and appropriate supplemental screening options if the patient has dense breast tissue. Interpreting Radiologist: Jitendra Singer M.D. Electronically signed on: 09/23/2024 Men'S Swim Coach: BILLY Transcribritney Date/Time: Sep 23 2024 10:56A Dictated by : JITENDRA SINGER MD This examination was interpreted and the report reviewed and electronically signed by: JITENDRA SINGER MD on Sep 23 2024 11:08AM EST DIVISION OF RADIOLOGY * * *Final Report* * * DATE OF EXAM: Sep 23 2024 11:04AM [facility] 0593 - FRED US BREAST LTD LT / PROCEDURE REASON: Nipple discharge * * * * Physician Interpretation * * * * [address] [place] [address] #[id number] - [facility] [employer] LT #[id number] - [employer] BREAST [employer] LT HISTORY: 38 year-old patient presents for diagnostic evaluation of focal pain in the left breast. Patient states no personal history of breast cancer. COMPARISON STUDIES: The present examination has been compared to prior imaging studies dated 03/02/2020 (ultrasound), 03/02/2020 (mammogram), 06/20/2023 (ultrasound) and 06/20/2023 (mammogram). MAMMOGRAM TECHNIQUE: The study was acquired using full field digital technology and interpreted from soft copy. Digital Breast Tomosynthesis (DBT) images were obtained and used to assist in the interpretation of this examination. MAMMOGRAM FINDINGS: There are scattered areas of fibroglandular density. There is no mammographic abnormality at the site of clinical concern. No suspicious masses, calcifications or other abnormalities are seen in the left breast. ULTRASOUND TECHNIQUE: Targeted ultrasound of the indicated area was performed. Caicedo scale images were saved. ULTRASOUND FINDINGS: No abnormality is seen at the site of clinical concern. There are no suspicious findings in the imaged area. DIVISION OF RADIOLOGY Provider, [facility] - 09/23/2024 * * *Final Report* * * DATE OF EXAM: Sep 23 2024 11:04AM [facility] 0593 - [employer] LT / PROCEDURE REASON: Nipple discharge * * * * Physician Interpretation * * * * [facility] [address] [id number] #[id number] - FRED [employer] LT #[id number] - [employer] LT HISTORY: 38 year-old patient presents for diagnostic evaluation of focal pain in the left breast. Patient states no personal history of breast cancer. COMPARISON STUDIES: The present examination has been compared to prior imaging studies dated 03/02/2020 (ultrasound), 03/02/2020 (mammogram), 06/20/2023 (ultrasound) and 06/20/2023 (mammogram). MAMMOGRAM TECHNIQUE: The study was acquired using full field digital technology and interpreted from soft copy. Digital Breast Tomosynthesis (DBT) images were obtained and used to assist in the interpretation of this examination. MAMMOGRAM FINDINGS: There are scattered areas of fibroglandular density. There is no mammographic abnormality at the site of clinical concern. No suspicious masses, calcifications or other abnormalities are seen in the left breast. ULTRASOUND TECHNIQUE: Targeted ultrasound of the indicated area was performed. Caicedo scale images were saved. ULTRASOUND FINDINGS: No abnormality is seen at the site of clinical concern. There are no suspicious findings in the imaged area. IMPRESSION IMPRESSION: There is no mammographic or sonographic evidence of malignancy. Since the patient states a history of bloody discharge, surgical consultation is suggested. Return to annual screening mammogram is recommended. Annual mammogram will be due at age 40. BI-RADS Category 2: Benign RISK: Based on the Tyrer-Cuzick (TC) risk assessment model, this patient has a 10.9% lifetime risk of developing breast cancer, meaning they are at average risk for developing breast cancer. However, this is only an estimate based on available history provided on the patient's questionnaire. We encourage all patients to talk with their providers about these results, further recommendations for managing breast health, and appropriate supplemental screening options if the patient has dense breast tissue. Interpreting Radiologist: Jitendra Singer M.D. Electronically signed on: 09/23/2024 Men'S Swim Coach: BILLY Pinonribritney Date/Time: Sep 23 2024 10:56A Dictated by : JITENDRA SINGER MD This examination was interpreted and the report reviewed and electronically signed by: JITENDRA SINGER MD on Sep 23 2024 11:08AM EST [facility] CNOVon 09-22-2024 CNOV Office Visit (ASHU Galloway) SONIA LARA ([id number]) 1985 F Date Time Provider Department 09/22/24 9:30 AM FREDO AMES During your visit today, we recorded the following information about you: Pulse Respiration Blood pressure Weight 55/minute 16/minute 117/77 117.9 kg Height 1.626 m Fredo Ames MD 09/22/2024 9:29 AM Signed NEUROSURGERY CONSULT NOTE Fredo Ames MD [facility] Date of visit: September 22, 2024 Patient Name: Ms.Kasandra Bryan Lara Date of : 1985 Current Age: [age] year old Sex: female MRN/E# [id number] Last Office Visit: Visit date not found Chief Complaint: Patient presents with: New Patient Past Medical/Surgical History: Sonia Lara is a 38 year old female who is referred by Farheen Almendarez APRN, CNP with family medicine for neurosurgical evaluation. The patient has a history of acquired hypothyroidism, binge eating disorder, cervical intraepithelial neoplasia 1, fatty liver, bariatric surgery 2017, hemangioma of liver, HTN. Smoking: denies. Alcohol Use: rare HISTORY OF PRESENT ILLNESS : The patient presents to the office today as a new patient for neurosurgical evaluation of her lumbar spine. Of note, she was seen by her PCP office on 07/28/2024 with reports of low back pain since 2018 that she described as burning and sharp, midline and waxed/waned. Worsened with activity, prolonged sitting. She was seen by Dr. Alcala on 08/16/2018 with low back pain without radiation into the legs. 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 She was 5 weeks at that time and could not be evaluated by further imaging. It was recommended that she follow up after conclusion of her , though this did not happen. Today she states she has some low back pain without radiation into the legs. She had seen Dr. Alcala in the past, and her pain somewhat dulled after that, but since having children she has noticed an increase in the low back pain. She rates it 4/10. She states that any extended activity exaggerates the pain. Rest, tramadol help to relieve the pain. She had done PT in June without much relief at all. She denies weakness, falls, bowel/bladder dysfunction. She is here for image review, evaluation and plan of care. Symptoms: low back pain PREVIOUS CONSERVATIVE TREATMENTS: Physical therapy - 07/01/2024, 07/07/2024, 07/14/2024, 07/21/2024 Pain management - no recent participation Tramadol HEP - stretching PREVIOUS SURGERY: None Surgical Risk Factors: Smoking status: denies Anticoagulants/antiplatelet s: denies Diabetic: denies BMI: 44.62 PAIN EVALUATION 09/21/2024 2140 Pain Level: 5 Pain Location: Back-Lower Description: Aching;Sharp;Sore;Stabbing; Stiffness;Tenderness;Throbb ing Duration Amount of Time: 8 Duration Units: Years Frequency: Continuous Intervention/Comfort measure: Medication;Reposition;Relax ation;Heat;Massage;Position ing PAST MEDICAL HISTORY Diagnosis Date Abnormal Pap smear of cervix Acquired hypothyroidism - check TSH Amenorrhea, unspecified - pt to track periods and we will discuss at next visit Anemia complicating , third trimester (HCC) 01/28/2019 Binge eating disorder Childhood asthma ([facility]) LES I (cervical intraepithelial neoplasia I) 2006 COVID-19 03/04/2020 With pneumonia Exercise-induced asthma (HCC) 07/16/2019 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 Katz, Hemangioma of liver Infertility, female Obesity PCOS (polycystic ovarian syndrome) depression 01/05/2020 Primary hypertension 02/28/2022 Seasonal allergies PAST SURGICAL HISTORY Procedure Laterality Date BARIATRIC SURGERY HX 12/13/[address] Katz SNGL 04/12/2019 C/S low transverse CAUTERY CERVIX CRYOCAUTERY INITIAL/REPEAT 2006 DELIVERY ONLY 05/17/2021 LTCS DANDC SUCTION 06/22/2020 incomplete ab HERNIA REPAIR HX INSERTION OF IUD 08/01/2023 REVISION OF FOOT BONES Left 02/07/2013 Ganglion Cyst/Bone Spur removed, Bone shaved. Left Foot Dr. Pickard SALPINGECTOMY Bilateral 05/17/2021 at second c/s TONSILLECTOMY HX FAMILY HISTORY Problem Relation Age of Onset other (Diabetes mellitus) Father other (Thyroid disorder) Father Rheumatologic disease Mother other (Endometriosis) Mother other (fibromyalgia) Mother No Known Problems Brother Colon Cancer Paternal Grandfather No Known Problems Brother Rheumatologic disease Maternal Grandmother Cancer Maternal Grandfather Lung- Mesothelioma ALLERGIES Allergen Reactions Codeine Other: See Comments N (more content not included)... Normal [facility] XR LUMBAR 2V FLEX/EXTon 06-3 XR LUMBAR 2V FLEX/EXT * * *Final Report* * * DATE OF EXAM: Sep 22 2024 8:52AM [id number] - XR LUMBAR 2V FLEX/EXT / PROCEDURE REASON: Degeneration of intervertebral disc of lumbar region with discogenic back pain a * * * * Physician Interpretation * * * * EXAM TITLE: XR LUMBAR 2V FLEX/EXT DATE: 09/28/2024 7:30 AM INDICATION: Low back pain COMPARISON: 04/22/2024 FINDINGS: Lateral flexion and extension views demonstrate normal alignment that is stable. Pars defects are suspected at L5-S1 and there is prominent multilevel lower lumbar spinal facet joint arthrosis. No definite fracture. Scattered degenerative changes. IMPRESSION: Stable alignment at flexion and extension. Additional details as discussed. Men'S Swim Coach: UJAN Transcribe Date/Time: Sep 28 2024 7:30A Dictated by : JITENDRA SINGER MD This examination was interpreted and the report reviewed and electronically signed by: JITENDRA SINGER MD on Sep 28 2024 7:31AM EST [id number] Normal [facility] XR Skull AP and Lateralon IMPRESSION: No focal calvarial abnormality is identified. The paranasal sinuses and mastoid air cells appear well aerated. If there is persistent clinical concern, cross-sectional imaging could be performed. Men'S Swim Coach: [facility] Transcribe Date/Time: Sep 07 2024 7:28P Dictated by : ARVIN VARGAS MD This examination was interpreted and the report reviewed and electronically signed by: ARVIN VARGAS MD on Sep 07 2024 7:29PM EST [facility] [employer] * * *Final Report* * * DATE OF EXAM: Sep 02 2024 11:36AM LDX 5259 - XR SKULL 2V AP/LAT / PROCEDURE REASON: Acquired deformity of skull * * * * Physician Interpretation * * * * EXAMINATION / TECHNIQUE: XR SKULL 2V AP/LAT HISTORY: Pt. states about one yr ago there are two indentations of skull superior frontal bone Acquired deformity of skull COMPARISON: None RESULT/ [facility] Provider, [facility] - 09/07/2024 * * *Final Report* * * DATE OF EXAM: Sep 02 2024 11:36AM LDX 5259 - XR SKULL 2V AP/LAT / PROCEDURE REASON: Acquired deformity of skull * * * * Physician Interpretation * * * * EXAMINATION / TECHNIQUE: XR SKULL 2V AP/LAT HISTORY: Pt. states about one yr ago there are two indentations of skull superior frontal bone Acquired deformity of skull COMPARISON: None RESULT/ IMPRESSION IMPRESSION: No focal calvarial abnormality is identified. The paranasal sinuses and mastoid air cells appear well aerated. If there is persistent clinical concern, cross-sectional imaging could be performed. Men'S Swim Coach: [facility] Transcribe Date/Time: Sep 07 2024 7:28P Dictated by : ARVIN VARGAS MD This examination was interpreted and the report reviewed and electronically signed by: ARVIN VARGAS MD on Sep 07 2024 7:29PM [facility] XR Skull AP and LateralOrder ed By: Ccf Provider on 09-07-2024 [facility] CNOVon 09-02-2024 CNOV Office Visit (AGFAMP LE) SONIA LARA ([id number]) 1985 F Date Time Provider Department 09/02/24 10:20 AM FARHEEN ALMENDAREZ During your visit today, we recorded the following information about you: Temperature Pulse Respiration Blood pressure 97.9 degrees 60/minute 19/minute 112/64 Weight Height 117.9 kg 1.626 m Farheen Almendarez, WATCH REPAIR TECHNICIAN.FRUIT HARVESTER 09/21/2024 8:55 PM Signed Subjective The patient consented to the use of Index software for draft documentation of the visit consistent with [facility]?s Notice of Privacy Practices. HPI Reginaronald Lara is a 38-year-old female with a history of acquired hypothyroidism, hyperparathyroidism, and depression, presenting with fatigue, brain fog, and poor sleep. Regina reports feeling terrible all the time, with significant fatigue and brain fog. She often needs to take naps during the day and feels out of sorts. She also reports poor sleep quality, stating she never sleeps well at night, even when her children are not in bed with her. She often struggles to fall asleep, sometimes not falling asleep until 0330, and frequently wakes up during the night. She has not tried melatonin or other sleep aids. She underwent a sleep study in 2016, which recommended CPAP use, but she discontinued it after bariatric surgery on her doctor's advice. She is reluctant to undergo another sleep study due to a previous negative experience. Regina has a history of acquired hypothyroidism and has been on levothyroxine 100 mcg for approximately 15 years. She also has hyperparathyroidism, with recent lab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 of the iliac crest and assume there are 5 lumbar-type vertebrae. Anatomic variant: None. Localizer images: Incidental note is made of cholelithiasis on the commercial painter images. Alignment: Alignment is anatomic. Moderate disc space narrowing is noted at T11-12 and mild disc space narrowing is noted at L4-5. Bone marrow signal/fracture: No evidence of pathologic marrow infiltration. Chronic right unilateral spondylolysis is noted at L5-S1. The left pars interarticularis appears to be intact.. Partial bony fusion of the T10 and T11 vertebral bodies. Conus: The conus is within normal limits of signal intensity and morphology. Paraspinal soft tissues: Paraspinal soft tissues are within normal limits. Lower thoracic spine: The visualized lower thoracic canal and foramina are patent. L1-L2: Canal and foramina are patent. L2-L3: Canal and foramina are patent L3-L4: Minimal disc bulging. Canal and foramina are patent. L4-L5: Minimal disc bulging and small annular fissure with no impact on the thecal sac. Facet degenerative changes and rostrocaudal facet subluxation cause mild left foraminal stenosis. L5-S1: Asymmetric facet degenerative changes causing mild left foraminal stenosis. Chronic right-sided pars fracture at the right neural foramen is patent.. Sacrum and iliac wings: The visualized sacrum and iliac wings are within normal limits. IMPRESSION: 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 Mild left L4-5 and L5-S1 bony foraminal stenosis. No significant lumbar canal stenosis. Lower thoracic degenerative disc disease with partial bony fusion at T10 and T11. Anatomic Lumbar Variant: None. L4-5 is considered the level of the iliac crest and assume there are 5 lumbar-type vertebrae. Since developmental variants may exist elsewhere in the spine, correlation with thoracic spine imaging would be helpful for accurate labeling of vertebral levels in the thoracic spine as clinically directed. Men'S Swim Coach: JUAN Transcribe Date/Time: Aug 19 2024 2:29P Dictated by : GUERO FRYE MD This examination was interpreted and the report reviewed and electronically signed by: GUERO FRYE MD on Aug 19 2024 2:39PM EST [id number] Normal [facility] 25(OH)D3 [facility] 25-hydroxyvitamin D3 [Mass/Vol] 22.5 ng/mL Low 31.0-80.0 [facility] Comment on above: Order Comment: Speci men Type: BLOOD SPECIMEN Ordering Facility: [facility] Address: [address] [place], [place] [address] [address] Result Comment: Clas sification of 25 [place] Vitamin D status: Deficiency/Insufficiency: < or = 30 ng/ml. Sufficiency/Optimal Levels: 31-80 ng/mL Toxicity: > 100 ng/mL. Test performed by chemiluminescent immunoassay. Performed By: #### 2 777-1, 42421-0, 87766-6 #### [facility] CLIA [id number] [address] [place] [address] [place] CBC panel Auto (Bld)on 08-05 Erythrocyte distribution width (RBC) [Ratio] 14.0 % Normal 11.5-15.0 [facility] Comment on above: Order Comment: Speci men Type: BLOOD SPECIMEN Ordering Facility: [facility] Address: [address] [place] [address] Performed By: #### 2 777-1, 79206-8, 85043-9 #### [facility] CLIA [id number] [address] [place] [address] [place] Hematocrit (Bld) [Volume fraction] 43.2 % Normal 36.0-46.0 [facility] Comment on above: Order Comment: Speci men Type: BLOOD SPECIMEN Ordering Facility: [facility] Address: [address] [place] [address] Performed By: #### 2 777-1, 41904-7, 23421-2 #### [facility] CLIA [id number] [address] [place] [address] [place] Hemoglobin (Bld) [Mass/Vol] 13.8 g/dL Normal 11.5-15.5 [facility] Comment on above: Order Comment: Speci men Type: BLOOD SPECIMEN Ordering Facility: [facility] Address: [address] [place] [address] Performed By: #### 2 777-1, 79664-9, 04420-6 #### [facility] CLIA [id number] [address] [place] [address] [place] [facility] MCH (RBC) [Entitic mass] 26.4 pg Normal 26.0-34.0 [facility] Comment on above: Order Comment: Speci men Type: BLOOD SPECIMEN Ordering Facility: [facility] Address: [address] [place] [address] Performed By: #### 2 777-1, 61442-9, 68265-9 #### [facility] CLIA [id number] [address] [place] [address] [place] MCHC (RBC) [Mass/Vol] 31.9 g/dL Normal 30.5-36.0 [facility] Comment on above: Order Comment: Speci men Type: BLOOD SPECIMEN Ordering Facility: [facility] Address: [address] [place] [address] Performed By: #### 2 777-1, 54490-8, 74221-4 #### [facility] CLIA [id number] [address] [place] [address] [place] MCV (RBC) [Entitic vol] 82.6 fL Normal 80.0-100.0 [facility] Comment on above: Order Comment: Speci men Type: BLOOD SPECIMEN Ordering Facility: [facility] Address: [address] [place] [address] Performed By: #### 2 777-1, 58365-7, 46350-0 #### [facility] CLIA [id number] [address] [place] [address] [place] Nucleated RBC (Bld) [#/Vol] 10*3/uL Normal <0.01 [facility] Comment on above: Order Comment: Speci men Type: BLOOD SPECIMEN Ordering Facility: [facility] Address: [address] [place] [address] Performed By: #### 2 777-1, 07333-7, 85022-9 #### [facility] CLIA [id number] [address] [place] [address] [place] Platelet mean volume (Bld) [Entitic vol] 9.4 fL Normal 9.0-12.7 [facility] Comment on above: Order Comment: Speci men Type: BLOOD SPECIMEN Ordering Facility: [facility] Address: [address] [place] [address] Performed By: #### 2 777-1, 59951-4, 63795-2 #### [facility] CLIA [id number] [address] [place] [address] [place] Platelets (Bld) [#/Vol] 220 10*3/uL Normal 150-400 [facility] Comment on above: Order Comment: Speci men Type: BLOOD SPECIMEN Ordering Facility: [facility] Address: [address] [place] [address] Performed By: #### 2 777-1, 41957-7, 94288-7 #### [facility] CLIA [id number] [address] [place] [address] [place] RBC (Bld) [#/Vol] 5.23 10*6/uL High 3.90-5.20 [facility] Comment on above: Order Comment: Speci men Type: BLOOD SPECIMEN Ordering Facility: [facility] Address: [address] [place] [address] Performed By: #### 2 777-1, 85184-3, 25573-9 #### [facility] CLIA [id number] [address] [place] [address] [place] WBC (Bld) [#/Vol] 6.61 10*3/uL Normal 3.70-11.00 [facility] Comment on above: Order Comment: Speci men Type: BLOOD SPECIMEN Ordering Facility: [facility] Address: [address] [place] [address] Performed By: #### 2 777-1, 24177-8, 14475-6 #### [facility] [id number] [address] [place] [address] [place] CNOVon 08-05-2024 CNOV Office Visit (OBGYWM ) SONIA LARA ([id number]) 1985 F Date Time Provider Department 08/05/24 9:20 AM KOMAL BOOTH OBGYWM During your visit today, we recorded the following information about you: Blood pressure Weight 126/84 115.7 kg Komal Booth MD 08/05/2024 10:22 AM Signed Sonia Lara is a 38 year old female who presents for problem visit for c/o increased bleeding and nipple discharge 2.5 weeks ago. HPI: 38 YOF noted 2 weeks ago had some left breast tenderness and then some nipple discharge white, clear then blood tinged at the end, blood streaked in the liquid. Not . No trauma to the area. Hasn't happened before. Increased bleeding w/ mirena. Had it placed a year ago. Had barely any menses for 6 months, light spotting. Now last few months heavier, back to super plus tampons. Increased cramping. Bleeds up to 8 days. Is frustrating to her. Doesn't take anything for cramping just achy and cramping constantly. Even when not bleeding. No pain w/ intercourse. No urinary concerns. 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 History Comments: Sexual Activity: Yes; Male; bilateral salpingectomy at c/s Contraception: Surgical PAST MEDICAL HISTORY Diagnosis Date Abnormal Pap smear of cervix Acquired hypothyroidism - check TSH Amenorrhea, unspecified - pt to track periods and we will discuss at next visit Anemia complicating , third trimester (HCC) 01/28/2019 Binge eating disorder Childhood asthma (HCC) LES I (cervical intraepithelial neoplasia I) 2007 COVID-19 03/04/2020 With pneumonia Exercise-induced asthma (HCC) 07/16/2019 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 Katz, Hemangioma of liver Infertility, female Obesity PCOS (polycystic ovarian syndrome) depression 01/05/2020 Primary hypertension 02/28/2022 Seasonal allergies PAST SURGICAL HISTORY Procedure Laterality Date BARIATRIC SURGERY HX 12/13/[address] Katz SNGL 04/12/2019 C/S low transverse CAUTERY CERVIX CRYOCAUTERY INITIAL/REPEAT 2007 DELIVERY ONLY 05/17/2021 LTCS DANDC SUCTION 06/22/2020 incomplete ab HERNIA REPAIR HX REVISION OF FOOT BONES Left 02/07/2013 Ganglion Cyst/Bone Spur removed, Bone shaved. Left Foot Dr. Pickard SALPINGECTOMY Bilateral 05/17/2021 at second c/s TONSILLECTOMY HX FAMILY HISTORY Problem Relation Age of Onset other (Diabetes mellitus) Father other (Thyroid disorder) Father Rheumatologic disease Mother other (Endometriosis) Mother other (fibromyalgia) Mother No Known Problems Brother Colon Cancer Paternal Grandfather No Known Problems Brother Rheumatologic disease Maternal Grandmother Cancer Maternal Grandfather Lung- Mesothelioma Social History Tobacco Use Smoking status: Never Smokeless tobacco: Never Vaping Use Vaping status: Never Used Substance Use Topics Alcohol use: Not Currently Comment: monthy use Drug use: Never Current Outpatient Medications Medication Sig tirzepatide, weight loss (ZEPBOUND) 12.5 mg/0.5 mL pen injector Inject 12.5 mg subcutaneously one time a week. sertraline (ZOLOFT) 50 mg tablet Take 1 tablet by mouth once daily. levothyroxine (SYNTHROID) 100 mcg tablet Take 1 tablet by mouth once daily. levonorgestrel (MIRENA) 21 mcg/24 hours (8 yrs) 52 mg IUD 1 Each by INTRAUTERINE route as directed. albuterol HFA (PROVENTIL HFA, VENTOLIN HFA) 90 mcg/actuation inhaler Inhale 2 Puffs as instructed every 4 hours as needed for wheezing/shortness of breath. clotrimazole (LOTRIMIN, CLOTRIM) 1 % cream APPLY TO AFFECTED AREA TWICE A DAY No current facility-administered medications for this visit. Allergies As of Date: 08/05/2024 Allergen Noted Reaction CODEINE 06/29/2010 Other: See Comments LISINOPRIL 10/03/2023 Cough Fully Assessed 07/28/2024 Allergies and current medication updated:Yes SENSITIVE EXAM: The sensitive examination was discussed with the Patient or Patient's Authorized Registered Safety Engineer. As applicable, any other physician, advance practice provider, medical student, or other health professional student that will be observing or involved in the sensitive examination for educational or training purposes was discussed with the Patient or Authorized Registered Safety Engineer. The Patient or Authorized Registered Safety Engineer has agreed to proceed with the sensitive examination. (Sensitive examination includes inspection and/or palpation of the breasts, pelvis, prostate and anorectal regions). EXAM: LMP 07/13/2023 GENERAL: pleasant, female in no apparent distress HEENT: Normocephali (more content not included)... Normal [facility] Calcium.ionized [Moles/Vol]o n 08-05-2024 Calcium.ionized (Bld) [Mass/Vol] 1.38 mmol/L High 1.08-1.30 [facility] Comment on above: Order Comment: Speci men Type: SWAB Ordering Facility: [facility] Address: [address] [place] [address] Performed By: #### C VTV, BVAMP #### [facility] CLIA [id number] [address] [place] [address] [place] Calcium.ionized adjusted to pH 7.4 (Bld) [Moles/Vol] 1.37 mmol/L High 1.08-1.30 [facility] Comment on above: Order Comment: Speci men Type: SWAB Ordering Facility: [facility] Address: [address] [place] [address] Performed By: #### C VTV, BVAMP #### [facility] CLIA [id number] [address] [place] [address] [place] Comprehensive metabolic 2000 panelon 08-05-2024 Albumin [Mass/Vol] 4.1 g/dL Normal 3.9-4.9 [facility] Comment on above: Order Comment: Speci men Type: BLOOD SPECIMEN Ordering Facility: [facility] Address: [address] [place] [address] Performed By: #### 2 777-1, 37761-0, 80652-3 #### [facility] CLIA [id number] [address] [place] [address] [place] ALP [Catalytic activity/Vol] 94 U/L Normal 34-123 [facility] Comment on above: Order Comment: Speci men Type: BLOOD SPECIMEN Ordering Facility: [facility] Address: [address] [place] [address] Performed By: #### 2 777-1, 50319-6, 79231-8 #### [facility] CLIA [id number] [address] [place] [address] [place] ALT [Catalytic activity/Vol] 15 U/L Normal 7-38 [facility] Comment on above: Order Comment: Speci men Type: BLOOD SPECIMEN Ordering Facility: [facility] Address: [address] [place], [place] [address] Performed By: #### 2 777-1, 28281-0, 73709-2 #### [facility] CLIA [id number] [address] [place] [address] [place] Anion gap [Moles/Vol] 7 mmol/L Low 8-15 [facility] Comment on above: Order Comment: Speci men Type: BLOOD SPECIMEN Ordering Facility: [facility] Address: [address] [place] [address] Performed By: #### 2 777-1, 11853-4, 95991-1 #### [facility] CLIA [id number] [address] [place] [address] [place] AST [Catalytic activity/Vol] 13 U/L Normal 13-35 [facility] Comment on above: Order Comment: Speci men Type: BLOOD SPECIMEN Ordering Facility: [facility] Address: [address] [place], [place] [address] Performed By: #### 2 777-1, 98686-2, 01413-2 #### [facility] CLIA [id number] [address] [place] [address] [place] Bilirubin [Mass/Vol] 0.7 mg/dL Normal 0.2-1.3 [facility] Comment on above: Order Comment: Speci men Type: BLOOD SPECIMEN Ordering Facility: [facility] Address: [address] [place], [place] [address] Performed By: #### 2 777-1, 50100-1, 82675-2 #### [facility] CLIA [id number] [address] [place] [address] [place] Calcium [Mass/Vol] 10.4 mg/dL High 8.5-10.2 [facility] Comment on above: Order Comment: Speci men Type: BLOOD SPECIMEN Ordering Facility: [facility] Address: [address] [place], [place] [address] Performed By: #### 2 777-1, 98912-7, 08398-7 #### [facility] CLIA [id number] [address] [place] [address] [place] Chloride [Moles/Vol] 103 mmol/L Normal 98-107 [facility] Comment on above: Order Comment: Speci men Type: BLOOD SPECIMEN Ordering Facility: [facility] Address: [address] [place] [address] Performed By: #### 2 777-1, 19089-4, 71912-3 #### [facility] CLIA [id number] [address] [place] [address] [place] CO2 [Moles/Vol] 28 mmol/L Normal 22-30 [facility] Comment on above: Order Comment: Speci men Type: BLOOD SPECIMEN Ordering Facility: [facility] Address: [address] [place], [place] [address] Performed By: #### 2 777-1, 81544-7, 03301-7 #### [facility] CLIA [id number] [address] [place] [address] [place] Glucose [Mass/Vol] 92 mg/dL Normal 74-99 [facility] Comment on above: Order Comment: Speci men Type: BLOOD SPECIMEN Ordering Facility: [facility] Address: [address] [place] [address] Result Comment: The [place] [employer] Association (ADA) provides guidance for cutoff values for fasting glucose and random glucose. The ADA defines fasting as no caloric intake for at least 8 hours. Fasting plasma glucose results between 100 to 125 mg/dL indicate increased risk for diabetes (prediabetes). Fasting plasma glucose results greater than or equal to 126 mg/dL meet the criteria for diagnosis of diabetes. In the absence of unequivocal hyperglycemia, results should be confirmed by repeat testing. In a patient with classic symptoms of hyperglycemia or hyperglycemic crisis, random plasma glucose results greater than or equal to 200 mg/dL meet the criteria for diagnosis of diabetes. Reference: Standards of Medical Care in Diabetes 2016, [place] [employer] Association. Diabetes Care. 2016.39(Suppl 1). Performed By: #### 2 777-1, 27626-0, 47141-4 #### [facility] CLIA [id number] [address] [place] [address] [place] Potassium [Moles/Vol] 4.1 mmol/L Normal 3.7-5.1 [facility] Comment on above: Order Comment: Soni mejía Type: BLOOD SPECIMEN Ordering Facility: [facility] Address: [address] [place], [place] [address] Performed By: #### 2 777-1, 51060-9, 15536-5 #### [facility] CLIA [id number] [address] [place] [address] [place] Protein [Mass/Vol] 7.1 g/dL Normal 6.3-8.0 [facility] Comment on above: Order Comment: Soni mejía Type: BLOOD SPECIMEN Ordering Facility: [facility] Address: [address] [address] Performed By: #### 2 777-1, 48665-6, 33043-9 #### [facility] CLIA [id number] [address] [place] [address] [place] Sodium [Moles/Vol] 138 mmol/L Normal 136-144 [facility] Comment on above: Order Comment: Karissai men Type: BLOOD SPECIMEN Ordering Facility: [facility] Address: [address] [id number] Performed By: #### 2 777-1, 53246-0, 46504-4 #### [facility] CLIA [id number] [address] [place] [address] [place] Urea nitrogen [Mass/Vol] 12 mg/dL Normal 7-21 [facility] Comment on above: Order Comment: Soni mejía Type: BLOOD SPECIMEN Ordering Facility: [facility] Address: [address] [place] [address] Performed By: #### 2 777-1, 14927-9, 67365-9 #### [facility] CLIA [id number] [address] [place] [address] [place] Creatinine + eGFR Pnl SerPlB ldon 08-05-2024 Creatinine [Mass/Vol] 0.87 mg/dL Normal 0.58-0.96 [facility] Comment on above: Order Comment: Soni mejía Type: BLOOD SPECIMEN Ordering Facility: [facility] Address: [address] [place] [address] Performed By: #### 2 777-1, 10527-5, 58949-2 #### [facility] CLIA [id number] [address] [place] [address] [place] Creatinine and Glomerular filtration rate.predicted panel (S/P/Bld) 88 mL/min/1.73m??? Normal >=60 [facility] Comment on above: Order Comment: Soni mejía Type: BLOOD SPECIMEN Ordering Facility: [facility] Address: [address] [place] [address] Result Comment: Sharon mated Glomerular Filtration Rate (eGFR) is calculated using the 2020 CKD-EPI creatinine equation. This equation utilizes serum creatinine, sex, and age as parameters. The creatinine assay has traceable calibration to isotope dilution-mass spectrometry. Refer to KDIGO guidelines for clinical interpretation. In patients with unstable renal function, e.g. those with acute kidney injury, the eGFR may not accurately reflect actual GFR. Performed By: #### 2 777-1, 66208-5, 99286-3 #### [facility] [id number] [address] [place] [address] [facility] [place] HbA1c (Bld)on 08-05-2024 Average glucose Estimated from glycated hemoglobin (Bld) [Mass/Vol] 97 mg/dL Normal [facility] Comment on above: Order Comment: Soni mejía Type: BLOOD SPECIMEN Ordering Facility: [facility] Address: [address] [place] [address] Result Comment: eAG: (Estimated average glucose) is a calculated value from HgbA1c and is home office representative of the average blood glucose level in the last 2-3 month period. Performed By: #### 2 777-1, 09476-7, #### [facility] CLIA [id number] [address] [place] [address] [place] HbA1c (Bld) [Mass fraction] 5.0 % Normal 4.3-5.6 [facility] Comment on above: Order Comment: Soni mejía Type: BLOOD SPECIMEN Ordering Facility: [facility] Address: [address] [place] [address] Result Comment: Amer ican Diabetes Association guidelines indicate that patients with HgbA1c in the range 5.7-6.4% are at increased risk for development of diabetes, and intervention by lifestyle modification may be beneficial. HgbA1c greater or equal to 6.5% is considered diagnostic of diabetes. Performed By: #### 2 777-1, 42049-8, #### [facility] [id number] [address] [place] [address] [place] Lipid 1996 panelon 5 Cholesterol [Mass/Vol] 209 mg/dL High <200 [facility] Comment on above: Order Comment: Soni mejía Type: BLOOD SPECIMEN Ordering Facility: [facility] Address: [address] [place] [address] Result Comment: <200 mg/dL, Desirable 200-239 mg/dL, Borderline high >239 mg/dL, High Performed By: #### 2 777-1, 87777-0, #### [facility] CLIA [id number] [address] [place] [address] [place] Cholesterol in HDL [Mass/Vol] 52 mg/dL Normal >39 [facility] Comment on above: Order Comment: Soni mejía Type: BLOOD SPECIMEN Ordering Facility: [facility] Address: [address] [place] [address] Result Comment: 40-5 9 mg/dL, Acceptable >59 mg/dL, High: Negative risk factor for coronary heart disease <40 mg/dL, Low: Positive risk factor for coronary heart disease Performed By: #### 2 777-1, 44529-5, #### [facility] CLIA [id number] [address] [place] [address] [place] Cholesterol in LDL [Mass/Vol] 131 mg/dL High <100 [facility] Comment on above: Order Comment: Soni mejía Type: BLOOD SPECIMEN Ordering Facility: [facility] Address: [address] [place] [address] Result Comment: <100 mg/dL, Optimal 100-129 mg/dL, Near optimal/above optimal 130-159 mg/dL, Borderline high 160-189 mg/dL, High >189 mg/dL, Very high Secondary prevention optimal LDL Cholesterol levels are recommended to be <70 mg/dL LDL cholesterol is calculated using the Mcneill-NIH equation. Performed By: #### 2 777-1, 41481-2, #### [facility] CLIA [id number] [address] [place] [address] [place] Cholesterol in LDL/Cholesterol in HDL [Mass ratio] 2.52 {ratio} Normal <2.54 [facility] Comment on above: Order Comment: Soni kym Type: BLOOD SPECIMEN Ordering Facility: [facility] Address: [address] [place] [address] Result Comment: lAyssa amor: 1. National Cholesterol Education Program ATP III Guideline At-A-Glance Quick Desk Reference: National Heart, Lung, and Blood [place]. National Institutes of Health. 2001: NIH Publication No. 01-3305. 2. An International Atherosclerosis Society position paper: global recommendations for the management of dyslipidemia: executive summary, Atherosclerosis. 2014: 232(2):410-413. Performed By: #### 2 777-1, 43203-3, #### [facility] CLIA [id number] [address] [place] [address] [place] Cholesterol in VLDL [Mass/Vol] 26 mg/dL Normal <30 [facility] Comment on above: Order Comment: Speci men Type: BLOOD SPECIMEN Ordering Facility: [facility] Address: [address] [place] [address] Performed By: #### 2 777-1, 35370-0, #### [facility] CLIA [id number] [address] [place] [address] [place] Cholesterol non HDL [Mass/Vol] 157 mg/dL High <130 [facility] Comment on above: Order Comment: Karissai kym Type: BLOOD SPECIMEN Ordering Facility: [facility] Address: [address] [place] [address] Result Comment: <130 mg/dL, Optimal 130-159 mg/dL, Near optimal/above optimal 160-189 mg/dL, Borderline high 190-219 mg/dL, High >219 mg/dL, Very high Secondary prevention optimal non HDL Cholesterol levels are recommended to be <100 mg/dL Performed By: #### 2 777-1, 10590-4, #### [facility] CLIA [id number] [address] [place] [address] [place] Cholesterol.total/Ch olesterol in HDL [Mass ratio] 4.02 {ratio} Normal <5.10 [facility] Comment on above: Order Comment: Soni mejía Type: BLOOD SPECIMEN Ordering Facility: [facility] Address: [address] [place] [address] Performed By: #### 2 777-1, 49102-9, 45313-6 #### [facility] CLIA [id number] [address] [place] [address] [place] FASTING TIME 12 hrs Normal [facility] Comment on above: Order Comment: Speci men Type: BLOOD SPECIMEN Ordering Facility: [facility] Address: [address] [place] [address] Performed By: #### 2 777-1, 15297-9, 66388-2 #### [facility] CLIA [id number] [address] [place] [address] [place] Triglyceride [Mass/Vol] 145 mg/dL Normal <150 [facility] Comment on above: Order Comment: Speci men Type: BLOOD SPECIMEN Ordering Facility: [facility] Address: [address] [place] [address] Result Comment: <150 mg/dL, Normal 150-199 mg/dL, Borderline high 200-499 mg/dL, High >499 mg/dL, Very high Performed By: #### 2 777-1, 47455-3, 69612-7 #### [facility] CLIA [id number] [address] [place] [address] [place] PTH-Intact SerPl-ncon - Parathyrin.intact [Mass/Vol] 137 pg/mL High 15-65 [facility] Comment on above: Order Comment: Speci men Type: BLOOD SPECIMEN Ordering Facility: [facility] Address: [address] [place] [address] Performed By: #### 2 777-1, 33824-7, 11176-6 #### [facility] CLIA [id number] [address] [place] [address] [place] Phosphate SerPl-mCncon 08-05 Phosphate [Mass/Vol] 1.9 mg/dL Low 2.7-4.8 [facility] Comment on above: Order Comment: Speci men Type: BLOOD SPECIMEN Ordering Facility: [facility] Address: [address] [place] [address] Performed By: #### 2 777-1, 53071-7, 16117-0 #### [facility] CLIA [id number] [address] [place] [address] [place] TSH SerPl-aCncon 08-05-2024 TSH Qn 0.627 m[IU]/L Normal 0.270-4.200 [facility] Comment on above: Order Comment: Speci men Type: BLOOD SPECIMEN Ordering Facility: [facility] Address: [address] [place] [address] Result Comment: If t he patient is , TSH reference range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 [facility] Platelets (Bld) [#/Vol] 238 10*3/uL [facility] RBC (Bld) [#/Vol] 5.03 10*6/uL 3.90 - 5.2 0 m/uL [facility] WBC (Bld) [#/Vol] 7.77 10*3/uL [facility] Erythrocyte distribution width (RBC) [Ratio] 14.3 % Normal 11.5-15.0 [facility] Comment on above: Order Comment: Speci men Type: BLOOD SPECIMEN Ordering Facility: [facility] Address: [address] [place] [address] Performed By: #### 3 040-3, 67837-9 #### [facility] CLIA [id number] [address] [place] [address] [place] Hematocrit (Bld) [Volume fraction] 42.2 % Normal 36.0-46.0 [facility] Comment on above: Order Comment: Speci men Type: BLOOD SPECIMEN Ordering Facility: [facility] Address: [address] [place] [address] Performed By: #### 3 040-3, 02480-8 #### for; to (do) [facility] CLIA [id number] [address] [place] Hemoglobin (Bld) [Mass/Vol] 13.1 g/dL Normal 11.5-15.5 [facility] Comment on above: Order Comment: Speci men Type: BLOOD SPECIMEN Ordering Facility: [facility] Address: [address] [place] [address] Performed By: #### 3 040-3, 96485-9 #### for; to (do) [facility] CLIA [id number] [address] [place] [address] [place] MCH (RBC) [Entitic mass] 26.0 pg Normal 26.0-34.0 [facility] Comment on above: Order Comment: Speci men Type: BLOOD SPECIMEN Ordering Facility: [facility] Address: [address] [place] [address] Performed By: #### 3 040-3, 44757-0 #### [facility] CLIA [id number] [address] [place] [address] [place] MCHC (RBC) [Mass/Vol] 31.0 g/dL Normal 30.5-36.0 [facility] Comment on above: Order Comment: Speci men Type: BLOOD SPECIMEN Ordering Facility: [facility] Address: [address] [place] [address] Performed By: #### 3 040-3, 04070-7 #### [facility] CLIA [id number] [address] [place] [address] [place] MCV (RBC) [Entitic vol] 83.9 fL Normal 80.0-100.0 [facility] Comment on above: Order Comment: Speci men Type: BLOOD SPECIMEN Ordering Facility: [facility] Address: [address] [place] [address] Performed By: #### 3 -3, 79582-6 #### [facility] CLIA [id number] [address] [place] [address] [place] Platelet mean volume (Bld) [Entitic vol] 9.5 fL Normal 9.0-12.7 [facility] Comment on above: Order Comment: Speci men Type: BLOOD SPECIMEN Ordering Facility: [facility] Address: [address] [place] [address] Performed By: #### 3 040-3, 27176-0 #### [facility] CLIA [id number] [address] [place] [address] [place] Platelets (Bld) [#/Vol] 238 10*3/uL Normal 150-400 [facility] Comment on above: Order Comment: Speci men Type: BLOOD SPECIMEN Ordering Facility: [facility] Address: [address] [place] [address] Performed By: #### 3 040-3, 24119-2 #### [facility] CLIA [id number] [address] [place] [address] [place] RBC (Bld) [#/Vol] 5.03 10*6/uL Normal 3.90-5.20 [facility] Comment on above: Order Comment: Speci men Type: BLOOD SPECIMEN Ordering Facility: [facility] Address: [address] [place] [address] Performed By: #### 3 040-3, 23878-4 #### [facility] CLIA [id number] [address] [place] [address] [place] WBC (Bld) [#/Vol] 7.77 10*3/uL Normal 3.70-11.00 [facility] Comment on above: Order Comment: Speci men Type: BLOOD SPECIMEN Ordering Facility: [facility] Address: [facility] [place] [address] Performed By: #### 3 040-3, 17400-4 #### [facility] CLIA [id number] [address] [place] [address] [facility] CNOVon 02-08-2024 CNOV Office Visit (GLORIA WEBB) ELIELINDASONIA Adams ([id number]) 1985 [facility] Date Time Provider Department 02/08/24 2:40 PM FARHEEN ALMENDAREZ During your visit today, we recorded the following information about you: Temperature Pulse Respiration Blood pressure 97.6 degrees 67/minute 16/minute 122/78 Weight Height 128.4 kg 1.626 m Farheen Almendarez, WATCH REPAIR TECHNICIAN.FRUIT HARVESTER 02/14/2024 10:18 PM Signed Subjective Sonia Adams Torito is a 38 year old female here today for headache. I reviewed past medical, surgical, social, and family histories today and updated chart. Allergies, chronic medications, and supplements were also reviewed. HPI For the past 10 days have a persistent headache Back of head, throbbing Wakes up with it, goes to bed with it Pain can be 7/10 and just has to go lay down No worse with with position changes Pain comes and goes Yesterday had headache all day long ASSOCIATED SYMPTOMS: Fever: No Nausea: Yes - just mild It just hurts so bad makes her feel yucky Vomiting: No Photophobia: No Does have sound sensititvity Neck Stiffness: No Inability to move head freely or touch chin to neck: No Sinus congestion: Yes - cleared up Purulent nasal discharge: No Toothache/dental problem: No Tongue or Jaw Pain: No Scalp pain with combing hair: Yes - in one spot to back of head NEUROLOGIC SYMPTOMS: Numbness: Yes - always in hands Has carpal tunnel - does wrist stretches Weakness: No Slurred speech: No Visual changes: No Dizziness: No Clumsiness: No Difficulty with gait: No Change in level of consciousness: No Change in orientation: No Change in behavior: No History of headaches: no Injury/Trauma: No Caffeine Intake: Yes - 1 cup coffee in am Alcohol Intake: No, hardly ever Treatment attempted: tylenol, excedrin migraine - did not help at all Checking BP at home 129 84 Fast blood sugar - 100-110 Was sick with upper respiratory infection about 3 weeks ago - sinus, cough, chest congestion. That cleared up Started semaglutide end of September for weight loss PAST MEDICAL HISTORY Diagnosis Date Abnormal Pap smear of cervix Acquired hypothyroidism - check TSH Amenorrhea, unspecified - pt to track periods and we will discuss at next visit Anemia complicating , third trimester 01/28/2019 Binge eating disorder - refer to Dr. 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 Katz, Infertility, female Morbid obesity (HCC) - continue to follow weight watcher's progam, exercise 1 hour per day, goal of 30 pounds in 3 months, then will recheck triglycerides. Obesity PCOS (polycystic ovarian syndrome) depression 01/05/2020 Primary hypertension 02/28/2022 Seasonal allergies PAST SURGICAL HISTORY Procedure Laterality Date BARIATRIC SURGERY HX 12/13/[address] Katz SNGL 04/12/2019 C/S low transverse CAUTERY CERVIX CRYOCAUTERY INITIAL/REPEAT 2006 DELIVERY ONLY 05/17/2021 LTCS DANDC SUCTION 06/22/2020 incomplete ab HERNIA REPAIR HX REVISION OF FOOT BONES Left 02/07/2013 Ganglion Cyst/Bone Spur removed, Bone shaved. Left Foot Dr. Pickard SALPINGECTOMY Bilateral 05/17/2021 at second c/s TONSILLECTOMY HX ALLERGIES Codeine and Lisinopril MEDICATIONS levothyroxine (SYNTHROID) 100 mcg tablet take 1 tablet by mouth every day omeprazole (PRILOSEC) 40 mg capsule TAKE 1 CAPSULE BY MOUTH EVERY DAY levonorgestrel (MIRENA) 21 mcg/24 hours (8 yrs) 52 mg IUD 1 Each by INTRAUTERINE route as directed. albuterol HFA (PROVENTIL HFA, VENTOLIN HFA) 90 mcg/actuation inhaler Inhale 2 Puffs as instructed every 4 hours as needed for wheezing/shortness of breath. clotrimazole (LOTRIMIN, CLOTRIM) 1 % cream APPLY TO AFFECTED AREA TWICE A DAY topiramate (TOPAMAX) 50 mg tablet Take 1 tablet by mouth daily at bedtime. (Patient not taking: Reported on 02/08/2024) metFORMIN ER (GLUCOPHAGE XR) 500 mg 24 hr tablet Take 1 tablet by mouth daily with dinner for 14 days, THEN 2 tablets daily with dinner. (Patient not taking: Reported on 02/08/2024) fluticasone (FLONASE ALLERGY RELIEF) 50 mcg/actuation nasal spray Use 1 [place] in each nostril twice daily. (Patient not taking: Reported on 02/08/2024) FAMILY HISTORY Problem Relation Age of Onset other (Diabetes mellitus) Father other (Thyroid disorder) Father Rheumatologic disease Mother other (Endometriosis) Mother other (fibromyalgia) Mother No Known Problems Brother Colon Cancer Paternal Grandfather No Known Problems Brother Rheumatologic disease Maternal Grandmother Cancer Maternal Grandfather Komal (more content not included)... Normal [facility] Comprehensive metabolic 2000 panelon 02-08-2024 Albumin [Mass/Vol] 4.0 g/dL 3.9 - 4.9 g/dL [facility] ALP [Catalytic activity/Vol] 96 U/L 34 - 123 U/L [facility] ALT With P-5'-P [Catalytic activity/Vol] 25 U/L 7 - 38 U/L [facility] Anion gap [Moles/Vol] 8 mmol/L 8 - 15 mmol/L [facility] AST With P-5'-P [Catalytic activity/Vol] 20 U/L 13 - 35 U/L [facility] Bilirubin [Mass/Vol] 0.5 mg/dL 0.2 - 1 .3 mg/dL [facility] Calcium [Mass/Vol] 10.4 mg/dL High 8.5 - 10. 2 mg/dL [facility] Chloride [Moles/Vol] 104 mmol/L 98 - 10 7 mmol/L [facility] CO2 [Moles/Vol] 26 mmol/L 22 - 30 mmol/L [facility] Creatinine [Mass/Vol] 0.93 mg/dL 0.58 - 0.96 mg/dL [facility] GFR/1.73 sq M.predicted among non-blacks MDRD (S/P/Bld) [Vol rate/Area] 81 mL/min/{1.73_m2} - PINF [facility] Comment on above: Estimated Glomerular Filtration Rate (eGFR) is calculated using the 2020 CKD-EPI creatinine equation. This equation utilizes serum creatinine, sex, and age as parameters. The creatinine assay has traceable calibration to isotope dilution-mass spectrometry. Refer to KDIGO guidelines for clinical interpretation. In patients with unstable renal function, e.g. those with acute kidney injury, the eGFR may not accurately reflect actual GFR. Glucose [Mass/Vol] 85 mg/dL 74 - 99 mg/dL [facility] Comment on above: The [place] Diabete s Association (ADA) provides guidance for cutoff values for fasting glucose and random glucose. The ADA defines fasting as no caloric intake for at least 8 hours. Fasting plasma glucose results between 100 to 125 mg/dL indicate increased risk for diabetes (prediabetes). Fasting plasma glucose results greater than or equal to 126 mg/dL meet the criteria for diagnosis of diabetes. In the absence of unequivocal hyperglycemia, results should be confirmed by repeat testing. In a patient with classic symptoms of hyperglycemia or hyperglycemic crisis, random plasma glucose results greater than or equal to 200 mg/dL meet the criteria for diagnosis of diabetes. Reference: Standards of Medical Care in Diabetes 2016, [place] Diabetes Association. Diabetes Care. 2016.39(Suppl 1). Interpretation and review of laboratory results Abnormal [facility] Potassium [Moles/Vol] 4.1 mmol/L 3.7 - 5.1 mmol/L [facility] Protein [Mass/Vol] 7.1 g/dL 6.3 - 8.0 g/dL [facility] Sodium [Moles/Vol] 138 mmol/L 136 - 144 mmol/L [facility] Urea nitrogen [Mass/Vol] 15 mg/dL 7 - 21 mg/dL [facility] Albumin [Mass/Vol] 4.0 g/dL Normal 3.9-4.9 [facility] Comment on above: Order Comment: Speci men Type: BLOOD SPECIMEN Ordering Facility: [facility] Address: [address] [place] [address] Performed By: #### 3 040-3, 47470-2 #### [facility] CLIA [id number] [address] [place] [address] [place] ALP [Catalytic activity/Vol] 96 U/L Normal 34-123 [facility] Comment on above: Order Comment: Speci men Type: BLOOD SPECIMEN Ordering Facility: [facility] Address: [address] [place] [address] Performed By: #### 3 040-3, 31565-2 #### [facility] CLIA [id number] [address] [place] [address] [place] ALT With P-5'-P [Catalytic activity/Vol] 25 U/L Normal 7-38 [facility] Comment on above: Order Comment: Speci men Type: BLOOD SPECIMEN Ordering Facility: [facility] Address: [address] [place] [address] Performed By: #### 3 040-3, 11743-5 #### [facility] CLIA [id number] [address] [place] [address] [place] Anion gap [Moles/Vol] 8 mmol/L Normal 8-15 [facility] Comment on above: Order Comment: Speci men Type: BLOOD SPECIMEN Ordering Facility: [facility] Address: [address] [place] [address] Performed By: #### 3 040-3, 82087-3 #### [facility] CLIA [id number] [address] [place] [address] [place] AST With P-5'-P [Catalytic activity/Vol] 20 U/L Normal 13-35 [facility] Comment on above: Order Comment: Speci men Type: BLOOD SPECIMEN Ordering Facility: [facility] Address: [address] [place], [place] [id number] Performed By: #### 3 -3, 61068-4 #### [facility] CLIA [id number] [address] [place] [address] [place] Bilirubin [Mass/Vol] 0.5 mg/dL Normal 0.2-1.3 [facility] Comment on above: Order Comment: Speci men Type: BLOOD SPECIMEN Ordering Facility: [facility] Address: [address] [place] [address] Performed By: #### 3 -3, 35815-2 #### [facility] CLIA [id number] [address] [place] [address] [place] Calcium [Mass/Vol] 10.4 mg/dL High 8.5-10.2 [facility] Comment on above: Order Comment: Speci men Type: BLOOD SPECIMEN Ordering Facility: [facility] Address: [address] [place] [address] Performed By: #### 3 3, 14914-3 #### [facility] CLIA [id number] [address] [place] [address] [place] Chloride [Moles/Vol] 104 mmol/L Normal 98-107 [facility] Comment on above: Order Comment: Speci men Type: BLOOD SPECIMEN Ordering Facility: [facility] Address: [address] [place] [address] Performed By: #### 3 -3, 46347-4 #### [facility] CLIA [id number] [address] [place] [address] [place] CO2 [Moles/Vol] 26 mmol/L Normal 22-30 [facility] Comment on above: Order Comment: Speci men Type: BLOOD SPECIMEN Ordering Facility: [facility] Address: [address] [place] [address] Performed By: #### 3 040-3, 74543-6 #### [facility] CLIA [id number] [address] [place] [address] [facility] Creatinine [Mass/Vol] 0.93 mg/dL Normal 0.58-0.96 [facility] Comment on above: Order Comment: Soni mejía Type: BLOOD SPECIMEN Ordering Facility: [facility] Address: [address] [place] [address] Performed By: #### 3 040-3, 36813-7 #### [facility] CLIA [id number] [address] [place], [place] [id number] [facility] Creatinine and Glomerular filtration rate.predicted panel (S/P/Bld) 81 mL/min/1.73m??? Normal >=60 [facility] Comment on above: Order Comment: Soni mejía Type: BLOOD SPECIMEN Ordering Facility: [facility] Address: [address] [place] [address] Result Comment: Sharon mated Glomerular Filtration Rate (eGFR) is calculated using the 2020 CKD-EPI creatinine equation. This equation utilizes serum creatinine, sex, and age as parameters. The creatinine assay has traceable calibration to isotope dilution-mass spectrometry. Refer to KDIGO guidelines for clinical interpretation. In patients with unstable renal function, e.g. those with acute kidney injury, the eGFR may not accurately reflect actual GFR. Performed By: #### 3 040-3, 09437-0 #### [facility] CLIA [id number] [address] [place] [address] [facility] Glucose [Mass/Vol] 85 mg/dL Normal 74-99 [facility] Comment on above: Order Comment: Soni mejía Type: BLOOD SPECIMEN Ordering Facility: [facility] Address: [address] [place] [address] Result Comment: The [place] Diabetes Association (ADA) provides guidance for cutoff values for fasting glucose and random glucose. The ADA defines fasting as no caloric intake for at least 8 hours. Fasting plasma glucose results between 100 to 125 mg/dL indicate increased risk for diabetes (prediabetes). Fasting plasma glucose results greater than or equal to 126 mg/dL meet the criteria for diagnosis of diabetes. In the absence of unequivocal hyperglycemia, results should be confirmed by repeat testing. In a patient with classic symptoms of hyperglycemia or hyperglycemic crisis, random plasma glucose results greater than or equal to 200 mg/dL meet the criteria for diagnosis of diabetes. Reference: Standards of Medical Care in Diabetes 2016, [place] Diabetes Association. Diabetes Care. 2016.39(Suppl 1). Performed By: #### 3 -3, 96268-5 #### [facility] CLIA [id number] [address] [place] [address] [place] Potassium [Moles/Vol] 4.1 mmol/L Normal 3.7-5.1 [facility] Comment on above: Order Comment: Speci men Type: BLOOD SPECIMEN Ordering Facility: [facility] Address: [address] [place] [address] Performed By: #### 3 -, 21621-9 #### [facility] CLIA [id number] [address] [place] [address] [place] Protein [Mass/Vol] 7.1 g/dL Normal 6.3-8.0 [facility] Comment on above: Order Comment: Speci men Type: BLOOD SPECIMEN Ordering Facility: [facility] Address: [address] [place] [address] Performed By: #### 3 -3, 04596-8 #### [facility] CLIA [id number] [address] [place] [address] [place] Sodium [Moles/Vol] 138 mmol/L Normal 136-144 [facility] Comment on above: Order Comment: Speci men Type: BLOOD SPECIMEN Ordering Facility: [facility] Address: [address] [place] [address] Performed By: #### 3 -3, 92832-8 #### [facility] CLIA [id number] [address] [place] [address] [place] Urea nitrogen [Mass/Vol] 15 mg/dL Normal 7-21 [facility] Comment on above: Order Comment: Speci men Type: BLOOD SPECIMEN Ordering Facility: [facility] Address: [address] [place] [address] Performed By: #### 3 -3, 05603-4 #### [facility] CLIA [id number] [address] [place] [address] [place] HbA1c (Bld)on 02-08-2024 Average glucose Estimated from glycated hemoglobin (Bld) [Mass/Vol] 100 mg/dL Normal [facility] Comment on above: Order Comment: Soni mejía Type: BLOOD SPECIMEN Ordering Facility: [facility] Address: [address] [place] [address] Result Comment: eAG: (Estimated average glucose) is a calculated value from HgbA1c and is home office representative of the average blood glucose level in the last 2-3 month period. Performed By: #### 5 5454-3 #### [facility] CLIA [id number] [address] [place] [address] [place] HbA1c (Bld) [Mass fraction] 5.1 % Normal 4.3-5.6 [facility] Comment on above: Order Comment: Soni mejía Type: BLOOD SPECIMEN Ordering Facility: [facility] Address: [address] [place] [address] Result Comment: [place] Diabetes Association guidelines indicate that patients with HgbA1c in the range 5.7-6.4% are at increased risk for development of diabetes, and intervention by lifestyle modification may be beneficial. HgbA1c greater or equal to 6.5% is considered diagnostic of diabetes. Performed By: #### 5 5454-3 #### [facility] CLIA [id number] [address] [place] [address] [place] LIPASEon 02-08-2024 Lipase [Catalytic activity/Vol] 36 U/L 16 - 61 U/L [facility] Lipase SerPl-cCncon 02-08-20 24 Lipase [Catalytic activity/Vol] 36 U/L Normal 16-61 [facility] Comment on above: Order Comment: Soni mejía Type: BLOOD SPECIMEN Ordering Facility: [facility] Address: [address] [place] [address] Performed By: #### 3 040-3, 62167-7 #### [facility] CLIA [id number] [address] [place] [address] [place] Lipase [Catalytic activity/V ol]on 02-08-2024 Interpretation and review of laboratory results Normal [facility] No Panel Informationon 02-07 [facility] CBC panel Auto (Bld)on 10-02 Erythrocyte distribution width (RBC) [Ratio] 14.2 % 11.5 - 15.0 % [facility] Hematocrit (Bld) [Volume fraction] 41.8 % 36.0 - 46.0 % [facility] Hemoglobin (Bld) [Mass/Vol] 12.9 g/dL 11.5 - 15.5 g/dL [facility] Interpretation and review of laboratory results Abnormal [facility] MCH (RBC) [Entitic mass] 25.7 pg Low 26.0 - 34.0 pg [facility] MCHC (RBC) [Mass/Vol] 30.9 g/dL 30.5 - 36.0 g/dL [facility] MCV (RBC) [Entitic vol] 83.4 fL 80.0 - 100.0 fL [facility] Platelet mean volume (Bld) [Entitic vol] 9.9 fL 9.0 - 12.7 fL [facility] Platelets (Bld) [#/Vol] 254 10*3/uL [facility] RBC (Bld) [#/Vol] 5.01 10*6/uL 3.90 - 5.2 0 m/uL [facility] WBC (Bld) [#/Vol] 7.33 10*3/uL [facility] Comprehensive metabolic 2000 panelon 10-03-2023 Albumin [Mass/Vol] 4.1 g/dL 3.9 - 4.9 g/dL [facility] ALP [Catalytic activity/Vol] 86 U/L 34 - 123 U/L [facility] ALT With P-5'-P [Catalytic activity/Vol] 20 U/L 7 - 38 U/L [facility] Anion gap [Moles/Vol] 10 mmol/L 8 - 15 mmol/L [facility] AST With P-5'-P [Catalytic activity/Vol] 16 U/L 13 - 35 U/L [facility] Bilirubin [Mass/Vol] 0.6 mg/dL 0.2 - 1 .3 mg/dL [facility] Calcium [Mass/Vol] 10.1 mg/dL 8.5 - 10. 2 mg/dL [facility] Chloride [Moles/Vol] 105 mmol/L 98 - 10 7 mmol/L [facility] CO2 [Moles/Vol] 24 mmol/L 22 - 30 mmol/L [facility] Creatinine [Mass/Vol] 0.92 mg/dL 0.58 - 0.96 mg/dL [facility] GFR/1.73 sq M.predicted among non-blacks MDRD (S/P/Bld) [Vol rate/Area] 82 mL/min/{1.73_m2} - PINF [facility] Comment on above: Estimated Glomerular Filtration Rate (eGFR) is calculated using the 2020 CKD-EPI creatinine equation. This equation utilizes serum creatinine, sex, and age as parameters. The creatinine assay has traceable calibration to isotope dilution-mass spectrometry. Refer to KDIGO guidelines for clinical interpretation. In patients with unstable renal function, e.g. those with acute kidney injury, the eGFR may not accurately reflect actual GFR. Glucose [Mass/Vol] 89 mg/dL 74 - 99 mg/dL [facility] Comment on above: The [place] Diabete s Association (ADA) provides guidance for cutoff values for fasting glucose and random glucose. The ADA defines fasting as no caloric intake for at least 8 hours. Fasting plasma glucose results between 100 to 125 mg/dL indicate increased risk for diabetes (prediabetes). Fasting plasma glucose results greater than or equal to 126 mg/dL meet the criteria for diagnosis of diabetes. In the absence of unequivocal hyperglycemia, results should be confirmed by repeat testing. In a patient with classic symptoms of hyperglycemia or hyperglycemic crisis, random plasma glucose results greater than or equal to 200 mg/dL meet the criteria for diagnosis of diabetes. Reference: Standards of Medical Care in Diabetes 2016, [place] Diabetes Association. Diabetes Care. 2016.39(Suppl 1). Potassium [Moles/Vol] 4.3 mmol/L 3.7 - 5.1 mmol/L [facility] Protein [Mass/Vol] 7.4 g/dL 6.3 - 8.0 g/dL [facility] Sodium [Moles/Vol] 139 mmol/L 136 - 144 mmol/L [facility] Urea nitrogen [Mass/Vol] 12 mg/dL 7 - 21 mg/dL [facility] Lipid 1996 panelon 4 Cholesterol [Mass/Vol] 217 mg/dL High NINF - 200 mg/dL [facility] Comment on above: <200 mg/dL, Desirabl e 200-239 mg/dL, Borderline high >239 mg/dL, High Cholesterol in HDL [Mass/Vol] 48 mg/dL 39 - PINF mg/dL [facility] Comment on above: 40-59 mg/dL, Accepta ble >59 mg/dL, High: Negative risk factor for coronary heart disease <40 mg/dL, Low: Positive risk factor for coronary heart disease Cholesterol in LDL [Mass/Vol] 128 mg/dL High NINF - 100 mg/dL [facility] Comment on above: <100 mg/dL, Optimal 100-129 mg/dL, Near optimal/above optimal 130-159 mg/dL, Borderline high 160-189 mg/dL, High >189 mg/dL, Very high Secondary prevention optimal LDL Cholesterol levels are recommended to be < 70 mg/dL Cholesterol in LDL/Cholesterol in HDL [Mass ratio] 2.67 {ratio} High NINF - 2.54 [facility] Comment on above: Reference: 1. National Cholesterol Education Program ATP III Guideline At-A-Glance Quick Desk Reference: National Heart, Lung, and Blood [place]. National Institutes of Health. 2001: NIH Publication No. 01-3305. 2. An International Atherosclerosis Society position paper: global recommendations for the management of dyslipidemia: executive summary, Atherosclerosis. 2014: 232(2):410-413. Cholesterol in VLDL [Mass/Vol] 41 mg/dL High NINF - 30 mg/dL [facility] Cholesterol non HDL [Mass/Vol] 169 mg/dL High NINF - 130 mg/dL [facility] Comment on above: <130 mg/dL, Optimal 130-159 mg/dL, Near optimal/above optimal 160-189 mg/dL, Borderline high 190-219 mg/dL, High >219 mg/dL, Very high Secondary prevention optimal non HDL Cholesterol levels are recommended to be <100 mg/dL Cholesterol.total/Ch olesterol in HDL [Mass ratio] 4.52 {ratio} NINF - 5.10 [facility] Fasting Time 12 hrs [facility] Interpretation and review of laboratory results Abnormal [facility] Triglyceride [Mass/Vol] 204 mg/dL High NINF - 150 mg/dL [facility] Comment on above: <150 mg/dL, Normal 150-199 mg/dL, Borderline high 200-499 mg/dL, High >499 mg/dL, Very high No Panel Informationon 10-02 Interpretation and review of laboratory results Normal [facility] THYROID STIMULATING HORMONEo n 10-03-2023 TSH Qn 1.460 m[IU]/L [facility] Comment on above: If the patient is pr egnant, TSH reference range varies by gestational period: First Trimester (weeks 9-12): 0.180-2.990 mIU/L Second Trimester: 0.110-3.980 mIU/L Third Trimester: 0.480-4.710 mIU/L Ramirez Alonso et al. A Practical Approach for the Verifications and Determination of Site- and Trimester-Specific Reference Intervals for Thyroid Function tests in . Thyroid, 2019:29:3:412-420. Joey Champagne et al. 2017 Guidelines of the [place] Thyroid Association for the Diagnosis and Management of Thyroid Disease during and the . Thyroid, 2017:27:3:315-389. UA DIP,URINE HCG (POC)on Beta HCG ( test) Ql (U) Negative Negative [facility] Comment on above: Location:[facility], [address] [place], [address] [employer] (POCT) Internal QC [facility] Location:[facility], [address] [place], [address] [facility] POINT OF CARE [facility] STREP A MOLECULAR (POC)on Procedural Control Valid [facility] Strep A (POCT) Negative Negative [facility] UA DIP,URINE HCG (POC)on Beta HCG ( test) Ql (U) Negative Negative [facility] [employer] (POCT) Internal QC [facility] US Pelvis transvaginalon [facility] Comprehensive metabolic 2000 panelon 11-20-2022 Albumin [Mass/Vol] 4.1 g/dL 3.9 - 4.9 g/dL [facility] ALP [Catalytic activity/Vol] 73 U/L 34 - 123 U/L [facility] ALT With P-5'-P [Catalytic activity/Vol] 56 U/L High 7 - 38 U/L [facility] Anion gap [Moles/Vol] 12 mmol/L 9 - 18 mmol/L [facility] AST With P-5'-P [Catalytic activity/Vol] 33 U/L 13 - 35 U/L [facility] Bilirubin [Mass/Vol] 0.7 mg/dL 0.2 - 1 .3 mg/dL [facility] Calcium [Mass/Vol] 10.0 mg/dL 8.5 - 10. 2 mg/dL [facility] Chloride [Moles/Vol] 102 mmol/L 97 - 10 5 mmol/L [facility] CO2 [Moles/Vol] 27 mmol/L 22 - 30 mmol/L [facility] Creatinine [Mass/Vol] 0.81 mg/dL 0.58 - 0.96 mg/dL [facility] Estimated Glomerular Filtration Rate 96 mL/min/1.73m >=60 mL/min/1.73m [facility] Glucose [Mass/Vol] 83 mg/dL 74 - 99 mg/dL [facility] Potassium [Moles/Vol] 3.3 mmol/L Low 3.7 - 5.1 mmol/L [facility] Protein [Mass/Vol] 7.0 g/dL 6.3 - 8.0 g/dL [facility] Sodium [Moles/Vol] 141 mmol/L 136 - 144 mmol/L [facility] Urea nitrogen [Mass/Vol] 9 mg/dL 7 - 21 mg/dL [facility] HbA1c (Bld)on 11-20-2022 Average glucose Estimated from glycated hemoglobin (Bld) [Mass/Vol] 108 mg/dL [facility] HbA1c (Bld) [Mass fraction] 5.4 % 4.3 - 5.6 % [facility] Hepatic function 2000 panelo n 08-29-2022 Albumin [Mass/Vol] 4.1 g/dL 3.9 - 4.9 g/dL [facility] ALP [Catalytic activity/Vol] 93 U/L 34 - 123 U/L [facility] ALT With P-5'-P [Catalytic activity/Vol] 50 U/L High 7 - 38 U/L [facility] AST With P-5'-P [Catalytic activity/Vol] 36 U/L High 13 - 35 U/L [facility] Bilirubin [Mass/Vol] 0.5 mg/dL 0.2 - 1 .3 mg/dL [facility] Bilirubin.direct [Mass/Vol] <0.2 mg/dL [facility] Protein [Mass/Vol] 7.1 g/dL 6.3 - 8.0 g/dL [facility] Lipid 1996 panelon 3 Cholesterol [Mass/Vol] 202 mg/dL High <200 mg/dL [facility] Cholesterol in HDL [Mass/Vol] 57 mg/dL >39 mg/dL [facility] Cholesterol in LDL [Mass/Vol] 102 mg/dL High <100 mg/dL [facility] Cholesterol in LDL/Cholesterol in HDL [Mass ratio] 1.79 {ratio} <2.54 [facility] Cholesterol in VLDL [Mass/Vol] 43 mg/dL High <30 mg/dL [facility] Cholesterol non HDL [Mass/Vol] 145 mg/dL High <130 mg/dL [facility] Cholesterol.total/Ch olesterol in HDL [Mass ratio] 3.54 {ratio} <5.10 [facility] Fasting Time 12 hrs [facility] Triglyceride [Mass/Vol] 213 mg/dL High <150 mg/dL [facility] Basic metabolic 2000 panelon 05-29-2022 Anion gap [Moles/Vol] 9 mmol/L 9 - 18 mmol/L [facility] Calcium [Mass/Vol] 10.3 mg/dL High 8.5 - 10. 2 mg/dL [facility] Chloride [Moles/Vol] 100 mmol/L 97 - 10 5 mmol/L [facility] CO2 [Moles/Vol] 28 mmol/L 22 - 30 mmol/L [facility] Creatinine [Mass/Vol] 0.92 mg/dL 0.58 - 0.96 mg/dL [facility] Estimated Glomerular Filtration Rate 83 mL/min/1.73m >=60 mL/min/1.73m [facility] Glucose [Mass/Vol] 82 mg/dL 74 - 99 mg/dL [facility] Potassium [Moles/Vol] 4.1 mmol/L 3.7 - 5.1 mmol/L [facility] Sodium [Moles/Vol] 137 mmol/L 136 - 144 mmol/L [facility] Urea nitrogen [Mass/Vol] 14 mg/dL 7 - 21 mg/dL [facility] Influenza virus A and B RNA and SARS-CoV-2 (COVID-19) N gene panel NATHAN+probe (Resp)on 02-01-2022 FLUAV RNA NATHAN+probe Ql (Unsp spec) Negative Negative for Influenza A by RT-PCR [facility] FLUBV RNA NATHAN+probe Ql (Unsp spec) Negative Negative for Influenza B by RT-PCR [facility] SARS-CoV-2 (COVID-19) RNA NATHAN+probe Ql (Resp) SARS-CoV-2 (Agent of COVID-19) Not Detected by RT-PCR or equivalent method. Not Detected [facility] XR SACRUM/COCCYX 3V AP/LATon 11-22-2021 [facility] XR KNEE GENERAL 4V AP BOTH/P A BOTH/LAT/MERC RIGHTon 08-31-2021 [facility] CBC panel Auto (Bld)on 08-03 Erythrocyte distribution width (RBC) [Ratio] 15.1 % High 11.5 - 15.0 % [facility] Hematocrit (Bld) [Volume fraction] 39.1 % 36.0 - 46.0 % [facility] Hemoglobin (Bld) [Mass/Vol] 11.9 g/dL 11.5 - 15.5 g/dL [facility] MCH (RBC) [Entitic mass] 25.2 pg Low 26.0 - 34.0 pg [facility] MCHC (RBC) [Mass/Vol] 30.4 g/dL Low 30.5 - 36.0 g/dL [facility] MCV (RBC) [Entitic vol] 82.7 fL 80.0 - 100.0 fL [facility] Platelet mean volume (Bld) [Entitic vol] 9.2 fL 9.0 - 12.7 fL [facility] Platelets (Bld) [#/Vol] 263 10*3/uL 150 - 400 k/uL [facility] RBC (Bld) [#/Vol] 4.73 10*6/uL 3.90 - 5.2 0 m/uL [facility] WBC (Bld) [#/Vol] 7.18 10*3/uL 3.70 - 11. 00 k/uL [facility] Comprehensive metabolic 2000 panelon 08-03-2021 Albumin [Mass/Vol] 4.1 g/dL 3.9 - 4.9 g/dL [facility] ALP [Catalytic activity/Vol] 105 U/L 34 - 123 U/L [facility] ALT With P-5'-P [Catalytic activity/Vol] 19 U/L 7 - 38 U/L [facility] Anion gap [Moles/Vol] 12 mmol/L 9 - 18 mmol/L [facility] AST With P-5'-P [Catalytic activity/Vol] 16 U/L 13 - 35 U/L [facility] Bilirubin [Mass/Vol] 0.3 mg/dL 0.2 - 1 .3 mg/dL [facility] Calcium [Mass/Vol] 9.9 mg/dL 8.5 - 10. 2 mg/dL [facility] Chloride [Moles/Vol] 103 mmol/L 97 - 10 5 mmol/L [facility] CO2 [Moles/Vol] 25 mmol/L 22 - 30 mmol/L [facility] Creatinine [Mass/Vol] 0.83 mg/dL 0.58 - 0.96 mg/dL [facility] Estimated Glomerular Filtration Rate 94 mL/min/1.73m >=60 mL/min/1.73m [facility] Glucose [Mass/Vol] 84 mg/dL 74 - 99 mg/dL [facility] Potassium [Moles/Vol] 3.9 mmol/L 3.7 - 5.1 mmol/L [facility] Protein [Mass/Vol] 7.1 g/dL 6.3 - 8.0 g/dL [facility] Sodium [Moles/Vol] 140 mmol/L 136 - 144 mmol/L [facility] Urea nitrogen [Mass/Vol] 10 mg/dL 7 - 21 mg/dL [facility] FERRITIN [facility] 08-03-2021 Ferritin [Mass/Vol] 50.7 ng/mL 14.7 - 2 05.1 ng/mL [facility] IRON + TIBCon 08-03-2021 Iron [Mass/Vol] 45 ug/dL 41 - 186 ug/dL [facility] Iron binding capacity [Mass/Vol] 356 ug/dL 232 - 386 ug/dL [facility] Iron saturation [Mass fraction] 13 % Low 15 - 57 % [facility] TSH [facility] 08-03-2021 TSH Qn 1.180 m[IU]/L 0.270 - 4.200 mIU/L [facility] XR FOOT 3V AP/LAT/OBL LTon 0 06-17-2020 XR FOOT 3V AP/LAT/OBL LT Final Report DATE OF EXAM: Jun 17 2020 2:25PM LDX 5336 - XR FOOT 3V AP/LAT/OBL LT / PROCEDURE REASON: Foot pain, left Physician Interpretation XR FOOT 3V AP/LAT/OBL LT HISTORY: 34 years old Clinical information: Foot pain, left Pt. States she fell in her garage and landed on her left side, pain in left knee and left foot TECHNIQUE: Images: XR FOOT 3V AP/LAT/OBL LT Comparison: None. RESULT: Joint spaces are well preserved. Mild degenerative changes dorsal intertarsal joints No fractures or dislocations are seen. IMPRESSION: No acute traumatic pathology. [employer]: NONAB Transcribe Date/Time: Jun 18 2020 3:13P Dictated by : ISAI HERRERA MD This examination was interpreted and the report reviewed and electronically signed by: ISAI HERRERA MD on Jun 18 2020 3:23PM EST Normal [facility] XR KNEE 2V AP/LAT LTon 06-17 XR KNEE 2V AP/LAT LT Final Report DATE OF EXAM: Jun 17 2020 2:25PM LDX 5206 - XR KNEE 2V AP/LAT LT / PROCEDURE REASON: Acute pain of left knee Physician Interpretation XR KNEE 2V AP/LAT LT HISTORY: 34 years old Clinical information: Acute pain of left knee Pt. States she fell in her garage and landed on her left side, pain in left knee and left foot TECHNIQUE: Images: XR KNEE 2V AP/LAT LT Comparison: None. RESULT: No evidence of joint effusion. No osteochondral pathology No fractures or dislocations are seen. IMPRESSION: No acute traumatic pathology. [employer] Coach: [facility] Transcribe Date/Time: Jun 18 2020 3:23P Dictated by : ISAI HERRERA MD This examination was interpreted and the report reviewed and electronically signed by: ISAI HERRERA MD on Jun 18 2020 3:23PM EST Normal [facility] Dietition Noteon 04-13-2020 Dietition Note Chief Complaint A telephone visit (audio only) between the patient (at the originating site) and the provider (at the distant site) was utilized to provide this telehealth service. 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) Back pain (724.5) (M54.9) Bariatric surgery status (V45.86) (Z98.84) BMI 40.0-44.9, adult (V85.41) (Z68.41) Bulge of lumbar disc without myelopathy (722.10) (M51.26) Bulge of thoracic disc without myelopathy (722.11) (M51.24) Chronic GERD (530.81) (K21.9) Controlled type 2 diabetes mellitus (250.00) (E11.9) Health care maintenance (V70.0) (Z00.00) Hyperlipemia (272.4) (E78.5) Hypothyroidism (244.9) (E03.9) Joint pain (719.40) (M25.50) Morbid obesity (278.01) (E66.01) PCOS (polycystic ovarian syndrome) (256.4) (E28.2) Rash (782.1) (R21) S/P laparoscopic sleeve gastrectomy (V45.86) (Z98.84) Vitamin D deficiency (268.9) (E55.9) Past Medical History History of BMI 50.0-59.9, adult (V85.43) (Z68.43) History of postoperative nausea and vomiting (V13.89) (Z87.898) History of Rapid weight loss (783.21) (R63.4) Surgical History History of Foot surgery History of Laparoscopic adjustable gastric banding History of Tonsillectomy History of [place] tooth extraction Family History Family history of arthritis (V17.7) (Z82.61) Family history of rheumatoid arthritis (V17.7) (Z82.61) Family history of diabetes mellitus (V18.0) (Z83.3) Family history of Hypothyroidism in adult Family history of asthma (V17.5) (Z82.5) Family history of psoriasis (V19.4) (Z84.0) Family history of rheumatoid arthritis (V17.7) (Z82.61) Family history of malignant neoplasm (V16.9) (Z80.9) Family history of malignant neoplasm (V16.9) (Z80.9) Social History Born in [place] Daily caffeine consumption Does not exercise (V69.0) (Z72.3) Does not use illicit drugs (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.9) Never a smoker Never used tobacco (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.9) 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 [employer] Rarely consumes alcohol (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.9) Sleeps less than 6 hours a day Allergies Codeine Derivatives Recorded By: Leti Phan; 08/22/2016 12:26:01 PM Current Meds Synthroid 50 MCG Oral Tablet; Therapy: (Recorded:[id number]) to Recorded Dispense: 0 Days ; #: Sufficient Tablet; Refill: 0;For: Hypothyroidism; LEANDRO = N; Record; Last Updated By: Leti Phan; 08/22/2016 12:30:57 PM Calcium Citrate Plus Oral Tablet; Therapy: (Recorded:[id number]) to Recorded Dispense: 0 Days ; #: Sufficient Tablet; Refill: 0;For: S/P laparoscopic sleeve gastrectomy; LEANDRO = N; Record; Last Updated By: Leti Phan; 12/19/2016 8:54:22 AM Multi-Vitamin TABS; Therapy: (Recorded:[id number]) to Recorded Dispense: 0 Days ; #: Sufficient Tablet; Refill: 0;For: S/P laparoscopic sleeve gastrectomy; LEANDRO = N; Record; Last Updated By: Leti Phan; 12/19/2016 8:54:22 AM Biotin Powder; Therapy: 11Jan2017 to Recorded Dispense: 0 Days ; #: Sufficient GM; Refill: 0; LEANDRO = N; Record; Last Updated By: Rosa Isela Ramos; 01/11/2017 10:35:30 AM Clotrimazole-Betamethasone 1-0.05 % External Cream; Therapy: [id number] to Recorded Rx By: DIMITRY; Dispense: 30 Days ; #:45; Refill: 0; LEANDRO = N; Record; Last Updated By: Rosa Isela Ramos; 03/29/2017 11:06:33 AM Nascobal 500 MCG/0.1ML Nasal Solution; Therapy: [id number] to Recorded Rx By: JUAN J; Dispense: 28 Days ; #:4; Refill: 0; LEANDRO = N; Record; Last Updated By: Rosa Isela Ramos; 03/29/2017 11:06:32 AM Provider Impressions Surgery Date: 12.13.16 Surgeon: Juan J Procedure: Sleeve gastrectomy ASSESSMENT: Current weight pounds: 278.0 Ht: 64.0BMI: 49.2 Previous weight pounds: n/a Initial start weight: 312.0 6.2.17 EBW: 171.0 Total weight change pounds: 34.0 %EBW Lost: 19.8% PROGRESS: Nutrition Interventions for last encounter (date): 1.continue to eat 60-70 g of protein per day 2.continue to drink 64 oz. of zero calorie beverages per day 3.Continue no drinking 30 min before, during the meal and for 30 minutes after the meal 4.Start doing exercise of choices for 30 min 1x/week. Increase intensity and duration of exercise to 3x/week. 5.You need to take 5320-6013 mg of calcium citrate CHANGES IN TREATMENT: Patient met goals: Yes No Partially Actions to meet previous goals: 24 hour food recall: pt is on a regular diet; consumes 60 g protein and >64 oz fluid daily Breakfast: 2 eggs and 1 slice wheat toast Snack: none Lunch: 3 oz chicken, raw veggies Snack: 1/2 c mixed nuts Dinner: 1 c chili and side salad Snack: SF jello Beverages: water, unswt tea, coffee Alcohol: none Vitamins: 2 MVI, 1200 mg calcium, 365 mg iron and B12 2500 mcg Medications: see list Physical Activity: pt just started riding bike today after having had COVID READINESS TO LEARN: Motivation to learn: Interested Understanding of instruction: Good Anticipated Compliance: Good Family Support: Unable to assess-family not present Patient presents with post-op weight loss surgery sleeve gastrectomy. Pt is >3 years postop. Pt is doing better following her meal plan and making better choices. she is meeting her goals for fluid, protein and taking all of her vitamin and mineral supplements. 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 and is just getting back to exercising today. Pt feels that she is back on track now. Recommend that pt continue doing what she is doing but to be careful with nuts as they are high in fat and calories. Malnutrition Screening Significant unintentional weight loss? n/a Eating less than 75% of usual intake for more than 2 weeks? n/a Nutrition Diagnosis: 1.Increased protein and nutrition needs related to altered GI function as evidenced by pt. s/p sleeve gastrectomy. Nutrition Interventions: 1.Modify type and amount of food and nutrients within meals and snacks. 2.Comprehensive Nutrition Education -Nutrition education materials: none Recommendations: 1.continue to eat 60-70 g of protein per day 2.Continue to drink 64 oz. of zero calorie beverages per day 3.Continue no drinking 30 min before, during the meal and for 30 minutes after the meal 4.Increase intensity and duration of exercise 5.Continue current vit/min regimen Nutrition Monitoring and Evaluation: 1-2 pounds weight loss per week Criteria: weight check, food recall Need for Follow-up: as needed Marta FULTON, [facility] Bariatric Surgery Dietitian Patient Discussion/Summary Recommendations: 1.continue to eat 60-70 g of protein per day 2.Continue to drink 64 oz. of zero calorie beverages per day 3.Continue no drinking 30 min before, during the meal and for 30 minutes after the meal 4.Increase intensity and duration of exercise 5.Continue current vit/min regimen Nutrition Monitoring and Evaluation: 1-2 pounds weight loss per week Criteria: weight check, food recall Need for Follow-up: as needed Marta FULTON, [facility] Bariatric Surgery Dietitian Signatures Electronically signed by : Marta Subramanian RD; Apr 13 2020 2:04PM EST (Author) Normal Touchworks XR CHEST 1V FRONTALon 2019 XR CHEST 1V FRONTAL Final Report DATE OF EXAM: Mar 14 2020 9:07PM LDX 5290 - XR CHEST 1V FRONTAL / PROCEDURE REASON: Acute respiratory illness Physician Interpretation History respiratory illness. TECHNIQUE: Frontal view of the chest Comparison dated 09/22/2016. Findings/ impression: There is an opacity within the left midlung which could represent early pneumonia in the correct clinical setting Cardiac mediastinal silhouette is unremarkable The bones are unremarkable. [employer]: JUAN Transcribe Date/Time: Mar 14 2020 9:09P Dictated by : CEM SANTIZO MD This examination was interpreted and the report reviewed and electronically signed by: CEM SANTIZO MD on Mar 14 2020 9:11PM EST Normal [facility] Dietition Noteon 03-02-2020 Dietition Note Chief Complaint A telephone visit (audio only) between the patient (at the originating site) and the provider (at the distant site) was utilized to provide this telehealth service. 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) Back pain (724.5) (M54.9) Bariatric surgery status (V45.86) (Z98.84) BMI 40.0-44.9, adult (V85.41) (Z68.41) Bulge of lumbar disc without myelopathy (722.10) (M51.26) Bulge of thoracic disc without myelopathy (722.11) (M51.24) Chronic GERD (530.81) (K21.9) Controlled type 2 diabetes mellitus (250.00) (E11.9) Health care maintenance (V70.0) (Z00.00) Hyperlipemia (272.4) (E78.5) Hypothyroidism (244.9) (E03.9) Joint pain (719.40) (M25.50) Morbid obesity (278.01) (E66.01) PCOS (polycystic ovarian syndrome) (256.4) (E28.2) Rash (782.1) (R21) S/P laparoscopic sleeve gastrectomy (V45.86) (Z98.84) Vitamin D deficiency (268.9) (E55.9) Past Medical History History of BMI 50.0-59.9, adult (V85.43) (Z68.43) History of postoperative nausea and vomiting (V13.89) (Z87.898) History of Rapid weight loss (783.21) (R63.4) Surgical History History of Foot surgery History of Laparoscopic adjustable gastric banding History of Tonsillectomy History of [place] tooth extraction Family History Family history of arthritis (V17.7) (Z82.61) Family history of rheumatoid arthritis (V17.7) (Z82.61) Family history of diabetes mellitus (V18.0) (Z83.3) Family history of Hypothyroidism in adult Family history of asthma (V17.5) (Z82.5) Family history of psoriasis (V19.4) (Z84.0) Family history of rheumatoid arthritis (V17.7) (Z82.61) Family history of malignant neoplasm (V16.9) (Z80.9) Family history of malignant neoplasm (V16.9) (Z80.9) Social History Born in [place] Daily caffeine consumption Does not exercise (V69.0) (Z72.3) Does not use illicit drugs (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.9) Never a smoker Never used tobacco (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.9) 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 alcohol (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.9) Sleeps less than 6 hours a day Allergies Codeine Derivatives Recorded By: Leti Phan; 08/22/2016 12:26:01 PM Current Meds Synthroid 50 MCG Oral Tablet; Therapy: (Recorded:[id number]) to Recorded Dispense: 0 Days ; #: Sufficient Tablet; Refill: 0;For: Hypothyroidism; LEANDRO = N; Record; Last Updated By: Leti Phan; 08/22/2016 12:30:57 PM Calcium Citrate Plus Oral Tablet; Therapy: (Recorded:19Dec2016) to Recorded Dispense: 0 Days ; #: Sufficient Tablet; Refill: 0;For: S/P laparoscopic sleeve gastrectomy; LEANDRO = N; Record; Last Updated By: Leti Phan; 12/19/2016 8:54:22 AM Multi-Vitamin TABS; Therapy: (Recorded:19Dec2016) to Recorded Dispense: 0 Days ; #: Sufficient Tablet; Refill: 0;For: S/P laparoscopic sleeve gastrectomy; LEANDRO = N; Record; Last Updated By: Leti Phan; 12/19/2016 8:54:22 AM Biotin Powder; Therapy: [id number] to Recorded Dispense: 0 Days ; #: Sufficient GM; Refill: 0; LEANDRO = N; Record; Last Updated By: Rosa Isela Ramos; 01/11/2017 10:35:30 AM Clotrimazole-Betamethasone 1-0.05 % External Cream; Therapy: [id number] to Recorded Rx By: DIMITRY; Dispense: 30 Days ; #:45; Refill: 0; LEANDRO = N; Record; Last Updated By: Rosa Isela Ramos; 03/29/2017 11:06:33 AM Nascobal 500 MCG/0.1ML Nasal Solution; Therapy: [id number] to Recorded Rx By: JUAN J; Dispense: 28 Days ; #:4; Refill: 0; LEANDRO = N; Record; Last Updated By: Rosa Isela Ramos; 03/29/2017 11:06:32 AM Provider Impressions Surgery Date: 12.13.16 Surgeon: Juan J Procedure: Sleeve gastrectomy ASSESSMENT: Current weight: n/a Ht: 64.0 in. BMI: n/a Previous weight: 287.0 11.2.20 Initial start weight: 312.0 6.2.17 EBW: 171.0 Total weight change: n/a %EBW Lost: n/a PROGRESS: Nutrition Interventions for last encounter (date): 1.Eat 60-70 g of protein per day. Aim for 3 oz or 20g per meal. EAt protein first. 2.continue to drink 64 oz. of zero calorie beverages per day 3.Continue no drinking 30 min before, during the meal and for 30 minutes after the meal 4.Start riding your bike for 30 min 3x/week. Increase intensity and duration of exercise 5.You need to take 2851-2933 mg of calcium citrate and 500 mcg B12 daily CHANGES IN TREATMENT: Patient met goals: Partially Actions to meet previous goals: 1. You need to take 0483-1936 mg of calcium citrate 24 hour food recall: Pt on a regular diet; consumes 60g protein and 64 oz fluid daily Breakfast: 2 eggs w/ cheese Snack: none Lunch: 2-3 oz turkey wrap w/veggies, 1 oz cheese, ranch dressing Snack: 1/4 c peanuts Dinner: 3 oz baked chicken, green beans, 1/4 c mashed potatoes Snack: none Beverages: coffee, water, diet soda Alcohol: none Vitamins: 2 MVI, 500 mg calcium, and B12 Medications: see list Physical Activity: no planned READINESS TO LEARN: Motivation to learn: Interested Understanding of instruction: Good Anticipated Compliance: Good Family Support: Unable to assess-family not present Patient presents with post-op weight loss surgery sleeve gastrectomy. Tolerating a regular diet without difficulty. Protein intake is adequate for post-op individual. Fluid consumption is adequate. Patient is not supplementing recommended vitamin/minerals. REminded pt to take 6732-6625 mg of calcium citrate daily. Instruected pt to finish what she has and switch over. Pt states that she has made improvements with eating habits but still struggles with exercise. Suggested starting off with at least 30 min 1x/week and increasing to 3x/week. Malnutrition Screening Significant unintentional weight loss? n/a Eating less than 75% of usual intake for more than 2 weeks? n/a Nutrition Diagnosis: 1.Increased protein and nutrition needs related to altered GI function as evidenced by pt. s/p /sleeve gastrectomy. Nutrition Interventions: 1.Modify type and amount of food and nutrients within meals and snacks. 2.Comprehensive Nutrition Education -Nutrition education materials: none Recommendations: 1.continue to eat 60-70 g of protein per day 2.continue to drink 64 oz. of zero calorie beverages per day 3.Continue no drinking 30 min before, during the meal and for 30 minutes after the meal 4.Start doing exercise of choices for 30 min 1x/week. Increase intensity and duration of exercise to 3x/week. 5.You need to take 4557-0757 mg of calcium citrate Nutrition Monitoring and Evaluation: 1-2 pounds weight loss per week Criteria: weight check, food recall Need for Follow-up: 1 month Marta FULTON, [facility] Bariatric Surgery Dietitian Patient Discussion/Summary Recommendations: 1.continue to eat 60-70 g of protein per day 2.continue to drink 64 oz. of zero calorie beverages per day 3.Continue no drinking 30 min before, during the meal and for 30 minutes after the meal 4.Start doing exercise of choices for 30 min 1x/week. Increase intensity and duration of exercise to 3x/week. 5.You need to take 1917-6680 mg of calcium citrate Nutrition Monitoring and Evaluation: 1-2 pounds weight loss per week Criteria: weight check, food recall Need for Follow-up: 1 month Marta FULTON, [facility] Bariatric Surgery Dietitian Signatures Electronically signed by : Marta Subramanian RD; Mar 02 2020 2:30PM EST (Author) Normal [employer] Dietition Noteon 01-26-2020 Dietition Note Chief Complaint A telephone visit (audio only) between the patient (at the originating site) and the provider (at the distant site) was utilized to provide this telehealth service. 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) Back pain (724.5) (M54.9) Bariatric surgery status (V45.86) (Z98.84) BMI 40.0-44.9, adult (V85.41) (Z68.41) Bulge of lumbar disc without myelopathy (722.10) (M51.26) Bulge of thoracic disc without myelopathy (722.11) (M51.24) Chronic GERD (530.81) (K21.9) Controlled type 2 diabetes mellitus (250.00) (E11.9) Health care maintenance (V70.0) (Z00.00) Hyperlipemia (272.4) (E78.5) Hypothyroidism (244.9) (E03.9) Joint pain (719.40) (M25.50) Morbid obesity (278.01) (E66.01) PCOS (polycystic ovarian syndrome) (256.4) (E28.2) Rash (782.1) (R21) S/P laparoscopic sleeve gastrectomy (V45.86) (Z98.84) Vitamin D deficiency (268.9) (E55.9) Past Medical History History of BMI 50.0-59.9, adult (V85.43) (Z68.43) History of postoperative nausea and vomiting (V13.89) (Z87.898) History of Rapid weight loss (783.21) (R63.4) Surgical History History of Foot surgery History of Laparoscopic adjustable gastric banding History of Tonsillectomy History of [place] tooth extraction Family History Family history of arthritis (V17.7) (Z82.61) Family history of rheumatoid arthritis (V17.7) (Z82.61) Family history of diabetes mellitus (V18.0) (Z83.3) Family history of Hypothyroidism in adult Family history of asthma (V17.5) (Z82.5) Family history of psoriasis (V19.4) (Z84.0) Family history of rheumatoid arthritis (V17.7) (Z82.61) Family history of malignant neoplasm (V16.9) (Z80.9) Family history of malignant neoplasm (V16.9) (Z80.9) Social History Born in [place] Daily caffeine consumption Does not exercise (V69.0) (Z72.3) Does not use illicit drugs (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.9) Never a smoker Never used tobacco (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.9) 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 alcohol (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.9) Sleeps less than 6 hours a day Allergies Codeine Derivatives Recorded By: Leti Phan; 08/22/2016 12:26:01 PM Current Meds Synthroid 50 MCG Oral Tablet (Levothyroxine Sodium); Therapy: (Recorded:[id number]) to Recorded Dispense: 0 Days ; #: Sufficient Tablet; Refill: 0;For: Hypothyroidism; LEANDRO = N; Record; Last Updated By: Leti Phan; 08/22/2016 12:30:57 PM Calcium Citrate Plus Oral Tablet; Therapy: (Recorded:[id number]) to Recorded Dispense: 0 Days ; #: Sufficient Tablet; Refill: 0;For: S/P laparoscopic sleeve gastrectomy; LEANDRO = N; Record; Last Updated By: Leti Phan; 12/19/2016 8:54:22 AM Multi-Vitamin TABS; Therapy: (Recorded:19Dec2016) to Recorded Dispense: 0 Days ; #: Sufficient Tablet; Refill: 0;For: S/P laparoscopic sleeve gastrectomy; LEANDRO = N; Record; Last Updated By: Leti Phan; 12/19/2016 8:54:22 AM Biotin Powder; Therapy: 11Jan2017 to Recorded Dispense: 0 Days ; #: Sufficient GM; Refill: 0; LEANDRO = N; Record; Last Updated By: Rosa Isela Ramos; 01/11/2017 10:35:30 AM Clotrimazole-Betamethasone 1-0.05 % External Cream; Therapy: 16Oct2016 to Recorded Rx By: DIMITRY; Dispense: 30 Days ; #:45; Refill: 0; LEANDRO = N; Record; Last Updated By: Rosa Isela Ramos; 03/29/2017 11:06:33 AM Nascobal 500 MCG/0.1ML Nasal Solution; Therapy: 25Aug2016 to Recorded Rx By: JUAN J; Dispense: 28 Days ; #:4; Refill: 0; LEANDRO = N; Record; Last Updated By: RichardNatalyn; 03/29/2017 11:06:32 AM Provider Impressions Surgery Date: 12.13.16 Surgeon: Juan J Procedure: Sleeve gastrectomy ASSESSMENT: Current weight: 287.0 Ht: 64.0 in. BMI: 50.8 Previous weight: 248.5 4.4.18 Initial start weight: 312.0 6.2.17 EBW: 171.0 Total weight change: +38.5, -25 pounds overall %EBW Lost: 14.6% PROGRESS: Nutrition Interventions for last encounter (date): 1.Continue to eat 60-70 g of protein per day 2.Continue to drink 64 oz. of zero calorie beverages per day. Omit caffeine 3.Continue no drinking 30 min before, during the meal and for 30 minutes after the meal 4.Continue to take all of your vitamins and minerals. Verify your calcium. 5.Continue to exercise. CHANGES IN TREATMENT: Patient met goals: Partially Actions to meet previous goals: 1. You are not meeting your goal for protein. Aim for 3 oz or 20 g protein at each meal 2. You neeed to take 5157-9713 mg of calcium citrate and 500 mcg B12 daily 24 hour food recall: Breakfast: 2-3 eggs Snack: cinnamon roll Lunch: ham and Macanese sandwich Snack: goldfish cracker 1/2-1c Dinner: 1-1 /2 c pasta Nathaniel w/chicken Snack: 1 slice bday cake Beverages: 1-2c coffee w/cream/day, 60 oz water/day, occasional diet soda Alcohol: none Vitamins: 2 MV, no calcium and no B`12 Medications: see list Physical Activity: none READINESS TO LEARN: Motivation to learn: Interested Understanding of instruction: Good Anticipated Compliance: Good Family Support: Unable to assess-family not present Patient presents with post-op weight loss surgery/sleeve gastrectomy. Pt is 3 years postop. She had a baby 8 months ago and is struggling with losing the weight. 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 she was riding her bike often but when when the depression set in she stopped exercising. tp is still following the postop guidelines. She is not taking the recommended vitamin/mineral supplementation. ADvised to start taking 2977-9187 mg calcium citrate and 500 mcg B12. Recommend that start riding her bike again for 30 mi 3x/week. Strongly recommend that pt start using selvin to monitor intake. Reviewed sequence of eating; protein first, veggie/fruit second and starch last. Advised to aim for 3 oz or 20g protein/meal. Advised to make more appropriate food choices. Malnutrition Screening Significant unintentional weight loss? n/a Eating less than 75% of usual intake for more than 2 weeks? n/a Nutrition Diagnosis: 1.Increased protein and nutrition needs related to altered GI function as evidenced by pt. s/p gastric bypass/sleeve gastrectomy. 2.inadequate protein intake relatd to not following postop guidelines as evidenced by diet recall. 3. Inadequate calcium intake related to not taking calcium as evidenced by pt statements. 4. Inadequate B12 intake related to not taking B12 as evidenced by pt statements. Nutrition Interventions: 1.Modify type and amount of food and nutrients within meals and snacks. 2.Comprehensive Nutrition Education -Nutrition education materials: Rules and Reminders. Recommendations: 1.Eat 60-70 g of protein per day. Aim for 3 oz or 20g per meal. EAt protein first. 2.continue to drink 64 oz. of zero calorie beverages per day 3.Continue no drinking 30 min before, during the meal and for 30 minutes after the meal 4.Start riding your bike for 30 min 3x/week. Increase intensity and duration of exercise 5.You need to take 5205-2530 mg of calcium citrate and 500 mcg B12 daily Nutrition Monitoring and Evaluation: 1-2 pounds weight loss per week Criteria: weight check, food recall Need for Follow-up: 1 month Marta FULTON, [facility] Bariatric Surgery Dietitian Patient Discussion/Summary Recommendations: 1.Eat 60-70 g of protein per day. Aim for 3 oz or 20g per meal. EAt protein first. 2.continue to drink 64 oz. of zero calorie beverages per day 3.Continue no drinking 30 min before, during the meal and for 30 minutes after the meal 4.Start riding your bike for 30 min 3x/week. Increase intensity and duration of exercise 5.You need to take 7408-5168 mg of calcium citrate and 500 mcg B12 daily Nutrition Monitoring and Evaluation: 1-2 pounds weight loss per week Criteria: weight check, food recall Need for Follow-up: 1 month Marta Subramanian RDN LD, [facility] Bariatric Surgery Dietitian Signatures Electronically signed by : Marta Subramanian RD; Jan 26 2020 3:14PM EST (Author) Normal [facility] Basic Panelon 12-03-2019 Anion gap [Moles/Vol] 11 mmol/L Normal 9-18 [facility] Comment on above: Performed By: #### L LP8 #### [facility] [address] [place], [place] [address] Calcium [Mass/Vol] 9.8 mg/dL Normal 8.5-10.2 [facility] Comment on above: Performed By: #### L LP8 #### [facility] [address] [place], [place] [address] Chloride [Moles/Vol] 103 mmol/L Normal 97-105 [facility] Comment on above: Performed By: #### L LP8 #### [facility] [address] [place], [place] [address] CO2 Blood 26 mmol/L Normal 22-30 [facility] Comment on above: Performed By: #### L LP8 #### [facility] [address] [place], [place] [address] Creatinine [Mass/Vol] 0.90 mg/dL Normal 0.58-0.96 [facility] Comment on above: Performed By: #### L LP8 #### [facility] [address] [place], [place] [address] Glucose [Mass/Vol] 93 mg/dL Normal 74-99 [facility] Comment on above: Result Comment: The [place] [employer] (ADA) provides guidance for cutoff values for fasting glucose and random glucose. The ADA defines fasting as no caloric intake for at least 8 hours.Fasting plasma glucose results between 100 to 125 mg/dL indicate increased risk for diabetes (prediabetes). Fasting plasma glucose results greater than or equal to 126 mg/dL meet the criteria for diagnosis of diabetes. In the absence of unequivocal hyperglycemia, results should be confirmed by repeat testing. In a patient with classic symptoms of hyperglycemia or hyperglycemic crisis, random plasma glucose results greater than or equal to 200 mg/dL meet the criteria for diagnosis of diabetes. Reference: Standards of Medical Care in Diabetes 2016; [place] [employer] Association. Diabetes Care. 2016;39(Suppl 1). Performed By: #### L LP8 #### [facility] [address] [place] [address] Potassium [Moles/Vol] 4.4 mmol/L Normal 3.7-5.1 [facility] Comment on above: Performed By: #### L LP8 #### [place] [address] Sodium [Moles/Vol] 140 mmol/L Normal 136-144 [facility] Comment on above: Performed By: #### L LP8 #### [place] [address] Urea nitrogen [Mass/Vol] 12 mg/dL Normal 7-21 [facility] Comment on above: Performed By: #### L LP8 #### [place] [address] Hemogramon 12-03-2019 Erythrocyte distribution width (RBC) [Ratio] 15.3 % Normal 11.5-15.9 [facility] Comment on above: Performed By: #### L CBC #### [place] [address] Hematocrit (Bld) [Volume fraction] 43.4 % Normal 37.0-47.0 [facility] Comment on above: Performed By: #### L CBC #### [place] [address] Hemoglobin (Bld) [Mass/Vol] 13.5 g/dL Normal 12.0-16.0 [facility] Comment on above: Performed By: #### L CBC #### [place] [address] MCH (RBC) [Entitic mass] 25.0 pg Low 27.0-31.0 [facility] Comment on above: Performed By: #### L CBC #### [place] [address] MCHC (RBC) [Mass/Vol] 31.1 % Low 32.0-36.0 [facility] Comment on above: Performed By: #### L CBC #### [facility] [address] [place] [address] MCV (RBC) [Entitic vol] 80.5 fL Low 81.0-99.0 [facility] Comment on above: Performed By: #### L CBC #### [facility] [address] [place] [address] Platelet mean volume (Bld) [Entitic vol] 9.6 fL Normal 7.1-10.5 [facility] Comment on above: Performed By: #### L CBC #### [place] [address] Platelets (Bld) [#/Vol] 304 thou/cmm Normal 150-400 [facility] Comment on above: Performed By: #### L CBC #### [place] [address] RBC (Bld) [#/Vol] 5.39 mil/cmm Normal 4.20-5.40 [facility] Comment on above: Performed By: #### L CBC #### [place] [address] WBC (Bld) [#/Vol] 8.8 thou/cmm Normal 4.8-10.5 [facility] Comment on above: Performed By: #### L CBC #### [place] [address] MDRD eGFRon 12-03-2019 GFR/1.73 sq M predicted among non-blacks MDRD (S/P/Bld) [Vol rate/Area] mL/min/{1.73_m2} Normal >60mL/min/1. 73m2 [facility] Comment on above: Result Comment: If t he patient is , multiply the result by 1.210. Performed By: #### L GFR #### [place] [address] TSHon 12-03-2019 TSH Qn 2.580 uIU/mL Normal 0.270-4.200 [facility] Comment on above: Result Comment: Preg sebastian: 1st trimester:(9-12 weeks):0.180-2.900 uIU/mL 2nd trimester: 0.110-3.980 uIU/mL 3rd trimester: 0.480-4.710 uIU/mL Patients taking a biotin dose of up to 5 mg/day should refrain from taking biotin for 4 hours prior to sample collection. Patients taking a biotin dose of 5 to 10 mg/day should refrain from taking biotin for 8 hours prior to sample collection. Patients taking a biotin dose > 10 mg/day should consult with their physician or the laboratory prior to having a sample taken. Clinicians should consider biotin interference as a source of error, when clinically suspicious of the laboratory result. Performed By: #### L TSH #### [facility] [address] [place] [address] HLA-B27 TYPINGon 06-19-2018 HLA-B27 TYPING Negative Normal [facility] Comment on above: Result Comment: This test was developed without FDA review. The test performance characteristics were defined and validated by the [facility] Department of Pathology, under the accreditation guidelines of [facility]. Performed By: #### H LB27 #### [facility] [address] [place] [address] NANDINI + CECILIA PANELon 06-18-2018 NANDINI WITH REFLEX TO CECILIA Negative Normal NEGATIVE [facility] Comment on above: Performed By: #### A NAP2 #### [facility] [address] [place] [address] ANTI-CENTROMERE <0.2 Normal [facility] Comment on above: Result Comment: REF VALUES < 1.0 = NEGATIVE >=1.0 = POSITIVE Performed By: #### A NAP2 #### [facility] [address] [place] [address] ANTI-CHROMATIN <0.2 Normal [facility] Comment on above: Result Comment: REF VALUES < 1.0 = NEGATIVE >=1.0 = POSITIVE Performed By: #### A NAP2 #### [facility] [address] [place] [address] ANTI-DNA [DS] <1.0 Normal [facility] Comment on above: Result Comment: REF VALUES NEGATIVE: <= 4 IU/ML EQUIVOCAL: 5- 9 IU/ML POSITIVE: >=10 IU/ML Performed By: #### A NAP2 #### [facility] [address] [place] [address] ANTI-MAME-1 <0.2 Normal [facility] Comment on above: Result Comment: REF VALUES < 1.0 = NEGATIVE >=1.0 = POSITIVE Performed By: #### A NAP2 #### [facility] [address] [place] [address] ANTI-RIBOSOMAL P <0.2 Normal [facility] Comment on above: Result Comment: REF VALUES < 1.0 = NEGATIVE >=1.0 = POSITIVE Performed By: #### A NAP2 #### [facility] [address] [place] [address] ANTI-AFTER SCHOOL PROGRAM COORDINATOR <0.2 Normal [facility] Comment on above: Result Comment: REF VALUES < 1.0 = NEGATIVE >=1.0 = POSITIVE Performed By: #### A NAP2 #### [facility] [address] [place] [address] ANTI-SCL-70 <0.2 Normal [facility] Comment on above: Result Comment: REF VALUES < 1.0 = NEGATIVE >=1.0 = POSITIVE Performed By: #### A NAP2 #### [facility] [address] [place] [address] ANTI-SM <0.2 Normal [facility] Comment on above: Result Comment: REF VALUES < 1.0 = NEGATIVE >=1.0 = POSITIVE Performed By: #### A NAP2 #### [facility] [address] [place] [address] ANTI-SM/AFTER SCHOOL PROGRAM COORDINATOR <0.2 Normal [facility] Comment on above: Result Comment: REF VALUES < 1.0 = NEGATIVE >=1.0 = POSITIVE Performed By: #### A NAP2 #### [facility] [address] [place] [address] ANTI-SSA <0.2 Normal [facility] Comment on above: Result Comment: REF VALUES < 1.0 = NEGATIVE >=1.0 = POSITIVE Performed By: #### A NAP2 #### [facility] [address] [place] [address] ANTI-SSB <0.2 Normal [facility] Comment on above: Result Comment: REF VALUES < 1.0 = NEGATIVE >=1.0 = POSITIVE Performed By: #### A NAP2 #### [facility] [address] [place] [address] C-REACTIVE PROTEINon 019 CRP mass conc 0.89 mg/dL Normal [facility] Comment on above: Result Comment: REF VALUE < 1.00 Performed By: #### C RP #### [facility] [address] [place] [address] CITRULLINE ANTIBODYon 2018 CITRULLINE ANTIBODY <1 Normal [facility] Comment on above: Result Comment: THE TEST FOR ANTIBODIES SPECIFIC FOR CYCLIC CITRULLINATED PEPTIDE (CCP) HAS SHOWN TO BE VALUABLE IN THE DIAGNOSIS OF RHEUMATOID ARTHRITIS. THE DIAGNOSTIC VALUE OF ANTIBODIES TO CCP IN JUVENILE RHEUMATOID ARTHRITIS PATIENTS HAS NOT BEEN DETERMINED. ANTIBODIES TO CENTROMERE OR SS-A AND MYELOMA IGG MAY BE REACTIVE IN THIS ASSAY. REF VALUES NEGATIVE < 3 U/ML POSITIVE >=3 U/ML Performed By: #### C ITAB #### [facility] [address] [place] [address] RHEUMATOID FACTORon 06-19-19 19 RHEUMATOID FACTOR 10 IU/mL Normal 0 - 15 [facility] Comment on above: Performed By: #### R F #### [facility] [address] [place] [address] SEDIMENTATION RATE, ERYTHROC YTEon 06-18-2018 SEDIMENTATION RATE, ERYTHROCYTE 16 mm/h Normal 0 - 20 [facility] Comment on above: Performed By: #### E SRWS #### [facility] [address] [place] [address] Vitamin B1, Whole Bloodon Vitamin B1, Whole Blood 91 nmol/L Normal 70-180 [facility] Comment on above: Result Comment: INTE RPRETIVE INFORMATION: Vitamin B1, Whole BloodThis assay measures the concentration of thiamine diphosphate(TDP), the primary active form of vitamin B1. Approximately 90percent of vitamin B1 present in whole blood is TDP. Thiamine andthiamine monophosphate, which comprise the remaining 10 percent,are not measured.Test developed and characteristics determined by [employer]. See Compliance Statement B: [employer]/CSPerformed by [facility],[address] [place] [id number] [email or web address], Tyler Gonzalez MD - Lab. DirectorPerforming Site: [facility] - [address] [place] [id number] Performed By: #### C BC, CMP12, PTHN, HA1C, FEPR, NATALYA, VB12, FOL, FT4, TSH, VITD ####[facility] [place], [place] [id number] Vitamin Aon 12-08-2017 Vitamin A 38.8 ug/dL Normal 31.2-89.1 [facility] Comment on above: Result Comment: Refe rence intervals for vitamin A determined from National Health andNutrition Examination Survey, 2891-5009. Individuals with vitamin Aless than 20 ug/dL are considered vitamin A deficient and those withserum concentrations less than 10 ug/dL are considered severelydeficient.This test was developed and its performance characteristicsdetermined by [employer]. It has not been cleared or approvedby the Food and Drug Administration.Performing Site: [facility] - [address] [place], [place] [id number] Performed By: #### C BC, CMP12, PTHN, HA1C, FEPR, NATALYA, VB12, FOL, FT4, TSH, VITD ####[facility] [place], [place] [id number] Copperon 12-07-2017 Copper 157 ug/dL Normal 72-166 [facility] Comment on above: Result Comment: Dete ction Limit = 5Performing Site: [facility] - [address] [place], [place] [id number] Performed By: #### C BC, CMP12, PTHN, HA1C, FEPR, NATALYA, VB12, FOL, FT4, TSH, VITD ####[facility] [place] [address] Zincon 12-07-2017 Zinc 83 ug/dL Normal 56-134 [facility] Comment on above: Result Comment: Keisha ction Limit = 5Performing Site: [facility] - [address] [place], [place] [id number] Performed By: #### C BC, CMP12, PTHN, HA1C, FEPR, NATALYA, VB12, FOL, FT4, TSH, VITD ####[place] [id number] Complete Blood Count w/diff $$on 12-04-2017 Basophils Auto #/vol (Bld) 0.0 10 /uL Low 0.04-0.9 [facility] Comment on above: Performed By: #### C BC, CMP12, PTHN, HA1C, FEPR, NATALYA, VB12, FOL, FT4, TSH, VITD ####[address] [address] Basophils/100 WBC Auto (Bld) 0 % Normal 0-1 [facility] Comment on above: Performed By: #### C BC, CMP12, PTHN, HA1C, FEPR, NATALYA, VB12, FOL, FT4, TSH, VITD ####[address] [address] Eosinophils Auto #/vol (Bld) 0.1 10 3/uL Normal 0.03-0.6 [facility] Comment on above: Performed By: #### C BC, CMP12, PTHN, HA1C, FEPR, NATALYA, VB12, FOL, FT4, TSH, VITD ####[address] [address] Eosinophils/100 WBC Auto (Bld) 2 % Normal 0-3 [facility] Comment on above: Performed By: #### C BC, CMP12, PTHN, HA1C, FEPR, NATALYA, VB12, FOL, FT4, TSH, VITD ####[address] [address] Erythrocyte distribution width Auto Ratio (RBC) 13.0 % Normal 11.5-14.5 [facility] Comment on above: Performed By: #### C BC, CMP12, PTHN, HA1C, FEPR, NATALYA, VB12, FOL, FT4, TSH, VITD ####[address] [address] Hematocrit Auto Volume Fraction (Bld) 43.9 % Normal 35-47 [facility] Comment on above: Performed By: #### C BC, CMP12, PTHN, HA1C, FEPR, NATALYA, VB12, FOL, FT4, TSH, VITD ####[address] [address] Hemoglobin mass conc (Bld) 14.0 g/dL Normal 12.0-16.0 [facility] Comment on above: Performed By: #### C BC, CMP12, PTHN, HA1C, FEPR, NATALYA, VB12, FOL, FT4, TSH, VITD ####[address] [address] Immature Gran# (Auto) 0.0 10 3/uL Normal [facility] Comment on above: Performed By: #### C BC, CMP12, PTHN, HA1C, FEPR, NATALYA, VB12, FOL, FT4, TSH, VITD ####[address] [address] Immature granulocytes #/vol (Bld) 0.3 % Normal 0.0-0.9 [facility] Comment on above: Performed By: #### C BC, CMP12, PTHN, HA1C, FEPR, NATALYA, VB12, FOL, FT4, TSH, VITD ####[address] [address] Lymphocytes Auto #/vol (Bld) 2.6 10 3/uL Normal 1-3.5 [facility] Comment on above: Performed By: #### C BC, CMP12, PTHN, HA1C, FEPR, NATALYA, VB12, FOL, FT4, TSH, VITD ####[address] [address] Lymphocytes/100 WBC Auto (Bld) 35 % Normal 24-44 [facility] Comment on above: Performed By: #### C BC, CMP12, PTHN, HA1C, FEPR, NATALYA, VB12, FOL, FT4, TSH, VITD ####[address] [address] MCH Auto Entitic mass (RBC) 31.9 g/dL Low 33-37 [facility] Comment on above: Performed By: #### C BC, CMP12, PTHN, HA1C, FEPR, NATALYA, VB12, FOL, FT4, TSH, VITD ####[address] [address] MCH Auto Entitic mass (RBC) 28.0 pg Normal 27-34 [facility] Comment on above: Performed By: #### C BC, CMP12, PTHN, HA1C, FEPR, NATALYA, VB12, FOL, FT4, TSH, VITD ####[address] [address] MCV Auto Entitic volume (RBC) 87.8 fL Normal 80-100 [facility] Comment on above: Performed By: #### C BC, CMP12, PTHN, HA1C, FEPR, NATALYA, VB12, FOL, FT4, TSH, VITD ####[address] [address] Monocytes Auto #/vol (Bld) 0.5 10 3/uL Normal 0.04-0.9 [facility] Comment on above: Performed By: #### C BC, CMP12, PTHN, HA1C, FEPR, NATALYA, VB12, FOL, FT4, TSH, VITD ####[address] [address] Monocytes/100 WBC Auto (Bld) 7 % Normal 1-8 [facility] Comment on above: Performed By: #### C BC, CMP12, PTHN, HA1C, FEPR, NATALYA, VB12, FOL, FT4, TSH, VITD ####[address] [address] Neutrophils Auto #/vol (Bld) 4.1 10 3/uL Normal 1.8-7.0 [facility] Comment on above: Performed By: #### C BC, CMP12, PTHN, HA1C, FEPR, NATALYA, VB12, FOL, FT4, TSH, VITD ####[address] [address] Neutrophils/100 WBC Auto (Bld) 56 % Normal 42-76 [facility] Comment on above: Performed By: #### C BC, CMP12, PTHN, HA1C, FEPR, NATALYA, VB12, FOL, FT4, TSH, VITD ####[address] [address] Nucleated RBC/100 WBC Ratio (Bld) 0.0 % Normal 0.0-0.0 [facility] Comment on above: Performed By: #### C BC, CMP12, PTHN, HA1C, FEPR, NATALYA, VB12, FOL, FT4, TSH, VITD ####[address] [address] Platelet mean volume Auto Entitic volume (Bld) 9.5 fL Normal 7.4-10.4 [facility] Comment on above: Performed By: #### C BC, CMP12, PTHN, HA1C, FEPR, NATALYA, VB12, FOL, FT4, TSH, VITD ####[address] [address] Platelets Auto #/vol (Bld) 226 10 3/uL Normal 150-400 [facility] Comment on above: Performed By: #### C BC, CMP12, PTHN, HA1C, FEPR, NATALYA, VB12, FOL, FT4, TSH, VITD ####[facility] [place] [address] RBC Auto #/vol (Bld) 5.00 10 6/uL Normal 4.2-5.4 [facility] Comment on above: Performed By: #### C BC, CMP12, PTHN, HA1C, FEPR, NATALYA, VB12, FOL, FT4, TSH, VITD ####[address] [address] WBC Auto #/vol (Bld) 7.4 10 3/uL Normal 4.0-11.[address] [facility] Comment on above: Performed By: #### C BC, CMP12, PTHN, HA1C, FEPR, NATALYA, VB12, FOL, FT4, TSH, VITD ####[address] [address] Comprehensive Metabolic Pane nasim 12-04-2017 Albumin mass conc 4.3 g/dL Normal 3.4-5.0 [facility] Comment on above: Performed By: #### C BC, CMP12, PTHN, HA1C, FEPR, NATALYA, VB12, FOL, FT4, TSH, VITD ####[address] [address] ALP enzyme act/vol 65 U/L Normal 33-110 [facility] Comment on above: Result Comment: Kyle gan note new reference range as of July. Performed By: #### C BC, CMP12, PTHN, HA1C, FEPR, NATALYA, VB12, FOL, FT4, TSH, VITD ####[address] [place] [address] ALT enzyme act/vol 27 U/L Normal 4-45 [facility] Comment on above: Result Comment: Plepreston gan note new reference range as of July. Performed By: #### C BC, CMP12, PTHN, HA1C, FEPR, NATALYA, VB12, FOL, FT4, TSH, VITD ####[address] [address] Anion gap 3 molar conc 11.9 mmol/L Normal 10-20 [facility] Comment on above: Performed By: #### C BC, CMP12, PTHN, HA1C, FEPR, NATALYA, VB12, FOL, FT4, TSH, VITD ####[address] [address] AST enzyme act/vol 19 U/L Normal 9-39 [facility] Comment on above: Result Comment: Kyle gan note new reference range as of July. Performed By: #### C BC, CMP12, PTHN, HA1C, FEPR, NATALYA, VB12, FOL, FT4, TSH, VITD ####[address] [address] Bilirubin Ql (U) 0.6 mg/dL Normal 0.0-1.2 [facility] Comment on above: Performed By: #### C BC, CMP12, PTHN, HA1C, FEPR, NATALYA, VB12, FOL, FT4, TSH, VITD ####[address] [address] Calcium mass conc 9.4 mg/dL Normal 8.6-10.3 [facility] Comment on above: Result Comment: Plepreston gan note new reference range as of July. Performed By: #### C BC, CMP12, PTHN, HA1C, FEPR, NATALYA, VB12, FOL, FT4, TSH, VITD ####[address] [address] Chloride molar conc 102 mmol/L Normal 98-107 [facility] Comment on above: Performed By: #### C BC, CMP12, PTHN, HA1C, FEPR, NATALYA, VB12, FOL, FT4, TSH, VITD ####[address] [address] CO2 molar conc 29 mmol/L Normal 21-32 [facility] Comment on above: Performed By: #### C BC, CMP12, PTHN, HA1C, FEPR, NATALYA, VB12, FOL, FT4, TSH, VITD ####[address] [address] Creatinine mass conc 0.84 mg/dL Normal 0.50-1.05 [facility] Comment on above: Result Comment: Kyle gan note new reference range as of July. Performed By: #### C BC, CMP12, PTHN, HA1C, FEPR, NATALYA, VB12, FOL, FT4, TSH, VITD ####[address] [address] GFR () >60 Normal [facility] Comment on above: Performed By: #### C BC, CMP12, PTHN, HA1C, FEPR, NATALYA, VB12, FOL, FT4, TSH, VITD ####[address] [address] GFR (Non ) >60 Normal [facility] Comment on above: Result Comment: eGFR Units of measure: mL/min/1.73 m 2 Performed By: #### C BC, CMP12, PTHN, HA1C, FEPR, NATALYA, VB12, FOL, FT4, TSH, VITD ####[address] [address] Glucose mass conc 83 mg/dL Normal 74-99 [facility] Comment on above: Performed By: #### C BC, CMP12, PTHN, HA1C, FEPR, NATALYA, VB12, FOL, FT4, TSH, VITD ####[address] [address] Potassium molar conc 3.9 mmol/L Normal 3.5-5.3 [facility] Comment on above: Performed By: #### C BC, CMP12, PTHN, HA1C, FEPR, NATALYA, VB12, FOL, FT4, TSH, VITD ####[address] [address] Protein mass conc 7.2 g/dL Normal 6.4-8.2 [facility] Comment on above: Performed By: #### C BC, CMP12, PTHN, HA1C, FEPR, NATALYA, VB12, FOL, FT4, TSH, VITD ####[address] [address] Sodium molar conc 139 mmol/L Normal 136-145 [facility] Comment on above: Performed By: #### C BC, CMP12, PTHN, HA1C, FEPR, NATALYA, VB12, FOL, FT4, TSH, VITD ####[address] [address] Urea nitrogen mass conc (Bld) 13 mg/dL Normal 6-23 [facility] Comment on above: Result Comment: Kyle gan note new reference range as of July. Performed By: #### C BC, CMP12, PTHN, HA1C, FEPR, NATALYA, VB12, FOL, FT4, TSH, VITD ####[address] [address] Ferritinon 12-04-2017 Ferritin 46 ug/L Normal 8-150 [facility] Comment on above: Result Comment: [facility] Site: [facility] [address] [facility] [place] [address] Performed By: #### C BC, CMP12, PTHN, HA1C, FEPR, NATALYA, VB12, FOL, FT4, TSH, VITD ####[address] [address] Folateon 12-04-2017 Folate 15.3 ng/mL Normal >5.0 [facility] Comment on above: Result Comment: Jody ents receiving more than 5 mg/day of biotin may have interferencein test results. A sample should be taken no sooner than eight hoursafter previous dose. Contact [phone] for additional information.Performing Site: [place] [address] [place] [address] Performed By: #### C BC, CMP12, PTHN, HA1C, FEPR, NATALYA, VB12, FOL, FT4, TSH, VITD ####[address] [address] Free T4on 12-04-2017 T4 free mass conc 1.1 ng/dL Normal 0.78-1.48 [facility] Comment on above: Performed By: #### C BC, CMP12, PTHN, HA1C, FEPR, NATALYA, VB12, FOL, FT4, TSH, VITD ####[address] [address] Iron Profileon 12-04-2017 % Iron Saturation 20 % Low 25-45 [facility] Comment on above: Performed By: #### C BC, CMP12, PTHN, HA1C, FEPR, NATALYA, VB12, FOL, FT4, TSH, VITD ####[address] [address] Iron mass conc 83 ug/dL Normal 35-150 [facility] Comment on above: Result Comment: Kyle gan note new reference range as of July. Performed By: #### C BC, CMP12, PTHN, HA1C, FEPR, NATALYA, VB12, FOL, FT4, TSH, VITD ####[address] [address] Total Iron Binding Capacity 424 ug/dl Normal 240-445 [facility] Comment on above: Performed By: #### C BC, CMP12, PTHN, HA1C, FEPR, NATALYA, VB12, FOL, FT4, TSH, VITD ####[facility] [place] [address] Magnesium $$on 12-04-2017 Magnesium mass conc 2.02 mg/dL Normal 1.60-2.40 [facility] Comment on above: Performed By: #### C BC, CMP12, PTHN, HA1C, FEPR, NATALYA, VB12, FOL, FT4, TSH, VITD ####[facility] [place] [address] PTH, Intacton 12-04-2017 Parathyroid Hormone, Intact 41.2 pg/mL Normal 18.5-88.0 [facility] Comment on above: Result Comment: Jody ents receiving more than 5 mg/day of biotin may have interferencein test results. A sample should be taken no sooner than eight hoursafter previous dose. Contact [phone] for additional information.Performing Site: [place] [address] [place] [address] Performed By: #### C BC, CMP12, PTHN, HA1C, FEPR, NATALYA, VB12, FOL, FT4, TSH, VITD ####[address] [address] Thyroid Stimulating Hormoneo n 12-04-2017 Thyrotropin Qn 0.43 m[IU]/L Low 0.44-3.98 [facility] Comment on above: Performed By: #### C BC, CMP12, PTHN, HA1C, FEPR, NATALYA, VB12, FOL, FT4, TSH, VITD ####[facility] [place] [address] Vitamin B12on 12-04-2017 Cobalamin (Vitamin B12) mass conc 365 pg/mL Normal 211-911 [facility] Comment on above: Result Comment: Perf orming Site: [place] [id number] [place] [address] Performed By: #### C BC, CMP12, PTHN, HA1C, FEPR, NATALYA, VB12, FOL, FT4, TSH, VITD ####[address] [address] Vitamin Don 12-04-2017 Vitamin D 23 ng/mL Abnormal [facility] Comment on above: Result Comment: .DEF ICIENCY: < 20 NG/MLINSUFFICIENCY: 20-29 NG/MLOPTIMUM LEVEL: 30-80 NG/MLPOSSIBLE TOXICITY: > 80 NG/MLTHIS ASSAY ACCURATELY QUANTIFIES THE SUM OFVITAMIN D3, 25-HYDROXY AND VIT D2,25-HYDROXY.Performing Site: [place] [address] [place] [address] Performed By: #### C BC, CMP12, PTHN, HA1C, FEPR, NATALYA, VB12, FOL, FT4, TSH, VITD ####[address] [address] Complete Blood Count w/diff $$on 06-27-2017 Basophils Auto #/vol (Bld) 0.0 10 /uL Low 0.04-0.9 [facility] Comment on above: Performed By: #### C BC, CMP12, PTHN, HA1C, FEPR, NATALYA, VB12, FOL, FT4, TSH, VITD ####[address] [address] Basophils/100 WBC Auto (Bld) 0 % Normal 0-1 [facility] Comment on above: Performed By: #### C BC, CMP12, PTHN, HA1C, FEPR, NATALYA, VB12, FOL, FT4, TSH, VITD ####[address] [address] Eosinophils Auto #/vol (Bld) 0.2 10 3/uL Normal 0.03-0.6 [facility] Comment on above: Performed By: #### C BC, CMP12, PTHN, HA1C, FEPR, NATALYA, VB12, FOL, FT4, TSH, VITD ####[address] [address] Eosinophils/100 WBC Auto (Bld) 2 % Normal 0-3 [facility] Comment on above: Performed By: #### C BC, CMP12, PTHN, HA1C, FEPR, NATALYA, VB12, FOL, FT4, TSH, VITD ####[address] [address] Erythrocyte distribution width Auto Ratio (RBC) 13.3 % Normal 11.5-14.5 [facility] Comment on above: Performed By: #### C BC, CMP12, PTHN, HA1C, FEPR, NATALYA, VB12, FOL, FT4, TSH, VITD ####[address] [address] Hematocrit Auto Volume Fraction (Bld) 46.0 % Normal 35-47 [facility] Comment on above: Performed By: #### C BC, CMP12, PTHN, HA1C, FEPR, NATALYA, VB12, FOL, FT4, TSH, VITD ####[address] [address] Hemoglobin mass conc (Bld) 14.3 g/dL Normal 12.0-16.0 [facility] Comment on above: Performed By: #### C BC, CMP12, PTHN, HA1C, FEPR, NATALYA, VB12, FOL, FT4, TSH, VITD ####[address] [address] Immature Gran# (Auto) 0.0 10 3/uL Normal [facility] Comment on above: Performed By: #### C BC, CMP12, PTHN, HA1C, FEPR, NATALYA, VB12, FOL, FT4, TSH, VITD ####[address] [address] Immature granulocytes #/vol (Bld) 0.1 % Normal 0.0-0.9 [facility] Comment on above: Performed By: #### C BC, CMP12, PTHN, HA1C, FEPR, NATALYA, VB12, FOL, FT4, TSH, VITD ####[address] [address] Lymphocytes Auto #/vol (Bld) 2.4 10 3/uL Normal 1-3.5 [facility] Comment on above: Performed By: #### C BC, CMP12, PTHN, HA1C, FEPR, NATALYA, VB12, FOL, FT4, TSH, VITD ####[address] [address] Lymphocytes/100 WBC Auto (Bld) 35 % Normal 24-44 [facility] Comment on above: Performed By: #### C BC, CMP12, PTHN, HA1C, FEPR, NATALYA, VB12, FOL, FT4, TSH, VITD ####[address] [address] MCH Auto Entitic mass (RBC) 27.8 pg Normal 27-34 [facility] System Comment on above: Performed By: #### C BC, CMP12, PTHN, HA1C, FEPR, NATALYA, VB12, FOL, FT4, TSH, VITD ####[address] [address] MCH Auto Entitic mass (RBC) 31.1 g/dL Low 33-37 [facility] Comment on above: Performed By: #### C BC, CMP12, PTHN, HA1C, FEPR, NATALYA, VB12, FOL, FT4, TSH, VITD ####[address] [address] MCV Auto Entitic volume (RBC) 89.3 fL Normal 80-100 [facility] Comment on above: Performed By: #### C BC, CMP12, PTHN, HA1C, FEPR, NATALYA, VB12, FOL, FT4, TSH, VITD ####[address] [address] Monocytes Auto #/vol (Bld) 0.5 10 3/uL Normal 0.04-0.9 [facility] Comment on above: Performed By: #### C BC, CMP12, PTHN, HA1C, FEPR, NATALYA, VB12, FOL, FT4, TSH, VITD ####[address] [address] Monocytes/100 WBC Auto (Bld) 7 % Normal 1-8 [facility] Comment on above: Performed By: #### C BC, CMP12, PTHN, HA1C, FEPR, NATALYA, VB12, FOL, FT4, TSH, VITD ####[address] [address] Neutrophils Auto #/vol (Bld) 3.8 10 3/uL Normal 1.8-7.0 [facility] Comment on above: Performed By: #### C BC, CMP12, PTHN, HA1C, FEPR, NATALYA, VB12, FOL, FT4, TSH, VITD ####[address] [address] Neutrophils/100 WBC Auto (Bld) 56 % Normal 42-76 [facility] Comment on above: Performed By: #### C BC, CMP12, PTHN, HA1C, FEPR, NATALYA, VB12, FOL, FT4, TSH, VITD ####[address] [address] Nucleated RBC/100 WBC Ratio (Bld) 0.0 % Normal 0.0-0.0 [facility] Comment on above: Performed By: #### C BC, CMP12, PTHN, HA1C, FEPR, NATALYA, VB12, FOL, FT4, TSH, VITD ####[address] [address] Platelet mean volume Auto Entitic volume (Bld) 9.4 fL Normal 7.4-10.4 [facility] Comment on above: Performed By: #### C BC, CMP12, PTHN, HA1C, FEPR, NATALYA, VB12, FOL, FT4, TSH, VITD ####[address] [address] Platelets Auto #/vol (Bld) 259 10 3/uL Normal 150-400 [facility] Comment on above: Performed By: #### C BC, CMP12, PTHN, HA1C, FEPR, NATALYA, VB12, FOL, FT4, TSH, VITD ####[address] [address] RBC Auto #/vol (Bld) 5.15 10 6/uL Normal 4.2-5.4 [facility] Comment on above: Performed By: #### C BC, CMP12, PTHN, HA1C, FEPR, NATALYA, VB12, FOL, FT4, TSH, VITD ####[address] [address] WBC Auto #/vol (Bld) 6.8 10 3/uL Normal 4.0-11.[address] [facility] Comment on above: Performed By: #### C BC, CMP12, PTHN, HA1C, FEPR, NATALYA, VB12, FOL, FT4, TSH, VITD ####[address] [address] Comprehensive Metabolic Pane nasim 06-27-2017 Albumin mass conc 3.5 g/dL Normal 3.4-5.0 [facility] Comment on above: Performed By: #### C BC, CMP12, PTHN, HA1C, FEPR, NATALYA, VB12, FOL, FT4, TSH, VITD ####[address] [address] ALP enzyme act/vol 72 U/L Normal 50-136 [facility] Comment on above: Performed By: #### C BC, CMP12, PTHN, HA1C, FEPR, NATALYA, VB12, FOL, FT4, TSH, VITD ####[address] [address] ALT enzyme act/vol 30 U/L Normal 12-78 [facility] Comment on above: Performed By: #### C BC, CMP12, PTHN, HA1C, FEPR, NATALYA, VB12, FOL, FT4, TSH, VITD ####[address] [address] Anion gap 3 molar conc 14.0 mmol/L Normal [facility] Comment on above: Performed By: #### C BC, CMP12, PTHN, HA1C, FEPR, NATALYA, VB12, FOL, FT4, TSH, VITD ####[address] [address] AST enzyme act/vol 18 U/L Normal 15-37 [facility] Comment on above: Performed By: #### C BC, CMP12, PTHN, HA1C, FEPR, NATALYA, VB12, FOL, FT4, TSH, VITD ####[address] [address] Bilirubin Ql (U) 0.4 mg/dL Normal 0.2-1.0 [facility] Comment on above: Performed By: #### C BC, CMP12, PTHN, HA1C, FEPR, NATALYA, VB12, FOL, FT4, TSH, VITD ####[address] [address] Calcium mass conc 9.1 mg/dL Normal 8.5-10.1 [facility] Comment on above: Performed By: #### C BC, CMP12, PTHN, HA1C, FEPR, NATALYA, VB12, FOL, FT4, TSH, VITD ####[address] [address] Chloride molar conc 106 mmol/L Normal 98-107 [facility] Comment on above: Performed By: #### C BC, CMP12, PTHN, HA1C, FEPR, NATALYA, VB12, FOL, FT4, TSH, VITD ####[address] [address] CO2 molar conc 26 mmol/L Normal 21-32 [facility] Comment on above: Performed By: #### C BC, CMP12, PTHN, HA1C, FEPR, NATALYA, VB12, FOL, FT4, TSH, VITD ####[address] [address] Creatinine mass conc 0.8 mg/dL Normal 0.6-1.3 [facility] Comment on above: Performed By: #### C BC, CMP12, PTHN, HA1C, FEPR, NATALYA, VB12, FOL, FT4, TSH, VITD ####[address] [address] GFR () >60 Normal [facility] Comment on above: Performed By: #### C BC, CMP12, PTHN, HA1C, FEPR, NATALYA, VB12, FOL, FT4, TSH, VITD ####[address] [address] GFR (Non ) >60 Normal [facility] Comment on above: Result Comment: eGFR Units of measure: mL/min/1.73 m 2 Performed By: #### C BC, CMP12, PTHN, HA1C, FEPR, NATALYA, VB12, FOL, FT4, TSH, VITD ####[address] [address] Glucose mass conc 82 mg/dL Normal 74-106 [facility] Comment on above: Performed By: #### C BC, CMP12, PTHN, HA1C, FEPR, NATALYA, VB12, FOL, FT4, TSH, VITD ####[address] [address] Potassium molar conc 4.0 mmol/L Normal 3.5-5.1 [facility] Comment on above: Performed By: #### C BC, CMP12, PTHN, HA1C, FEPR, NATALYA, VB12, FOL, FT4, TSH, VITD ####[address] [address] Protein mass conc 7.1 g/dL Normal 6.4-8.2 [facility] Comment on above: Performed By: #### C BC, CMP12, PTHN, HA1C, FEPR, NATALYA, VB12, FOL, FT4, TSH, VITD ####[address] [address] Sodium molar conc 142 mmol/L Normal 136-145 [facility] Comment on above: Performed By: #### C BC, CMP12, PTHN, HA1C, FEPR, NATALYA, VB12, FOL, FT4, TSH, VITD ####[address] [address] Urea nitrogen mass conc (Bld) 14 mg/dL Normal 7-18 [facility] Comment on above: Performed By: #### C BC, CMP12, PTHN, HA1C, FEPR, NATALYA, VB12, FOL, FT4, TSH, VITD ####[address] [address] Ferritinon 06-27-2017 Ferritin 40.9 ng/mL Normal 8.0-252.0 [facility] Comment on above: Performed By: #### C BC, CMP12, PTHN, HA1C, FEPR, NATALYA, VB12, FOL, FT4, TSH, VITD ####[address] [address] Folateon 06-27-2017 Folate 22.7 ng/mL Normal >5.0 [facility] Comment on above: Result Comment: Jody ents receiving more than 5 mg/day of biotin may have interferencein test results. A sample should be taken no sooner than eight hoursafter previous dose. Contact [phone] for additional information.Performing Site: [facility] - [address] [place], [place] Performed By: #### C BC, CMP12, PTHN, HA1C, FEPR, NATALYA, VB12, FOL, FT4, TSH, VITD ####[address] [id number] Free T4on 06-27-2017 T4 free mass conc 1.2 ng/dL Normal 0.8-1.5 [facility] Comment on above: Performed By: #### C BC, CMP12, PTHN, HA1C, FEPR, NATALYA, VB12, FOL, FT4, TSH, VITD ####[address] [address] Hemoglobin A1con 06-27-2017 Hemoglobin A1c/Hemoglobin.total mass fraction (Bld) 5.3 % Normal 4.4-6.3 [facility] Comment on above: Performed By: #### C BC, CMP12, PTHN, HA1C, FEPR, NATALYA, VB12, FOL, FT4, TSH, VITD ####[address] [id number] Iron Profileon 06-27-2017 % Iron Saturation 12 % Low 16-35 [facility] Comment on above: Performed By: #### C BC, CMP12, PTHN, HA1C, FEPR, NATALYA, VB12, FOL, FT4, TSH, VITD ####[address] [id number] Iron mass conc 50 ug/dL Normal 50-170 [facility] Comment on above: Performed By: #### C BC, CMP12, PTHN, HA1C, FEPR, NATALYA, VB12, FOL, FT4, TSH, VITD ####[address] [id number] Total Iron Binding Capacity 420 ug/dL Normal 250-450 [facility] Comment on above: Performed By: #### C BC, CMP12, PTHN, HA1C, FEPR, NATALYA, VB12, FOL, FT4, TSH, VITD ####[facility] [place] [address] PTH, Intacton 06-27-2017 Parathyroid Hormone, Intact 56.6 pg/mL Normal 18.5-88.0 [facility] Comment on above: Result Comment: Note new reference range as of 05/07/2017.Patients receiving more than 5 mg/day of biotin may have interferencein test results. A sample should be taken no sooner than eight hoursafter previous dose. Contact [phone] for additional information.Performing Site: [facility] - [id number], [place] Performed By: #### C BC, CMP12, PTHN, HA1C, FEPR, NATALYA, VB12, FOL, FT4, TSH, VITD ####[facility] [place] [address] Thyroid Stimulating Hormoneo n 06-27-2017 Thyrotropin Qn 0.626 m[IU]/L Normal 0.358-3.74 [facility] Comment on above: Performed By: #### C BC, CMP12, PTHN, HA1C, FEPR, NATALYA, VB12, FOL, FT4, TSH, VITD ####[facility] [place] [address] Vitamin B12on 06-27-2017 Cobalamin (Vitamin B12) mass conc 522 pg/mL Normal 254-1320 [facility] Comment on above: Performed By: #### C BC, CMP12, PTHN, HA1C, FEPR, NATALYA, VB12, FOL, FT4, TSH, VITD ####[facility] [place] [address] Vitamin Don 06-27-2017 Vitamin D 52.48 ng/mL Normal [facility] Comment on above: Result Comment: Clas sification of 25 [place] Vitamin D status:Deficiency: <20 ng/mLInsufficiency/Moderate Deficiency: 20-30 ng/mLSufficiency/Optimal Level: 30-100 ng/mLToxicity: >100 ng/mL Performed By: #### C BC, CMP12, PTHN, HA1C, FEPR, NATALYA, VB12, FOL, FT4, TSH, VITD ####[facility] [place] [address] Vital Signs Date Time Vital Sign Value Performing Clinician Facility 11-13-2024 09:26-0400 Body height 162.6 cm Komal Booth MD Work Phone: [facility] 11-13-2024 09:26-0400 Body mass index (BMI) [Ratio] 45.32 kg/m2 Komal Booth MD Work Phone: [facility] 11-13-2024 09:26-0400 Body weight 119.75 kg Komal Booth MD Work Phone: [facility] 11-13-2024 09:26-0400 Diastolic blood pressure 82 mm[Hg] Komal Booth MD Work Phone: [facility] 11-13-2024 09:26-0400 Heart rate 72 /min Komal Booth MD Work Phone: [facility] 11-13-2024 09:26-0400 SaO2% (BldA) [Mass fraction] 97 % Komal Booth MD Work Phone: [facility] 11-13-2024 09:26-0400 Systolic blood pressure 126 mm[Hg] Komal Booth MD Work Phone: [facility] 10-20-2024 14:29-0400 Body height 162.6 cm Guero Guillen MD Work Phone: [facility] 10-20-2024 14:29-0400 Body mass index (BMI) [Ratio] 45.18 kg/m2 Guero Guillen MD Work Phone: [facility] 10-20-2024 14:29-0400 Body weight 119.4 kg Guero Guillen MD Work Phone: [facility] 10-20-2024 14:29-0400 Heart rate 65 /min Guero Guillen MD Work Phone: [facility] 10-20-2024 14:29-0400 SaO2% (BldA) [Mass fraction] 100 % Guero Guillen MD Work Phone: [facility] 10-07-2024 14:55-0400 Body height 162.6 cm Candi Sahu MD Work Phone: [facility] 10-07-2024 14:55-0400 Body mass index (BMI) [Ratio] 45.05 kg/m2 Candi Sahu MD Work Phone: [facility] 10-07-2024 14:55-0400 Body weight 119.1 kg Candi Sahu MD Work Phone: [facility] 10-07-2024 14:55-0400 Diastolic blood pressure 81 mm[Hg] Candi Sahu MD Work Phone: [facility] 10-07-2024 14:55-0400 Heart rate 86 /min Candi Sahu MD Work Phone: [facility] 10-07-2024 14:55-0400 Respiratory rate 16 /min Candi Sahu MD Work Phone: [facility] 10-07-2024 14:55-0400 SaO2% (BldA) [Mass fraction] 99 % Candi Sahu MD Work Phone: [facility] 10-07-2024 14:55-0400 Systolic blood pressure 118 mm[Hg] Candi Sahu MD Work Phone: [facility] 09-22-2024 08:54-0400 Body height 162.6 cm Fredo Ames MD Work Phone: [facility] 09-22-2024 08:54-0400 Body mass index (BMI) [Ratio] 44.62 kg/m2 Fredo Ames MD Work Phone: [facility] 09-22-2024 08:54-0400 Body weight 117.9 kg Fredo Ames MD Work Phone: [facility] 09-22-2024 08:54-0400 Diastolic blood pressure 77 mm[Hg] Fredo Ames MD Work Phone: [facility] 09-22-2024 08:54-0400 Heart rate 55 /min Fredo Ames MD Work Phone: [facility] 09-22-2024 08:54-0400 Respiratory rate 16 /min Fredo Ames MD Work Phone: [facility] 09-22-2024 08:54-0400 SaO2% (BldA) [Mass fraction] 99 % Fredo Ames MD Work Phone: [facility] 09-22-2024 08:54-0400 Systolic blood pressure 117 mm[Hg] Fredo Ames MD Work Phone: [facility] 09-02-2024 10:18-0400 Body height 162.6 cm Farheen Almendarez WATCH REPAIR TECHNICIAN.[employer] Work Phone: [facility] 09-02-2024 10:18-0400 Body mass index (BMI) [Ratio] 44.63 kg/m2 Farheen Almendarez WATCH REPAIR TECHNICIAN.[employer] Work Phone: [facility] 09-02-2024 10:18-0400 Body temperature 97.9 [degF] Farheen Almendarez WATCH REPAIR TECHNICIAN.[employer] Work Phone: [facility] 09-02-2024 10:18-0400 Body weight 117.94 kg Farheen Almendarez WATCH REPAIR TECHNICIAN.[employer] Work Phone: [facility] 09-02-2024 10:18-0400 Diastolic blood pressure 64 mm[Hg] Farheen Almendarez WATCH REPAIR TECHNICIAN.[employer] Work Phone: [facility] 09-02-2024 10:18-0400 Heart rate 60 /min Farheen Almendarez WATCH REPAIR TECHNICIAN.[employer] Work Phone: [facility] 09-02-2024 10:18-0400 Respiratory rate 19 /min Farheen Almendarez APRN.[employer] Work Phone: [facility] 09-02-2024 10:18-0400 SaO2% (BldA) [Mass fraction] 93 % Farheen Almendarez APRN.[employer] Work Phone: [facility] 09-02-2024 10:18-0400 Systolic blood pressure 112 mm[Hg] Farheen Almendarez APRN.[employer] Work Phone: [facility] 08-21-2024 10:24-0400 Body height 162.6 cm Mercy Nciksydnie WATCH REPAIR TECHNICIAN.[employer] Work Phone: [facility] 08-21-2024 10:24-0400 Body mass index (BMI) [Ratio] 44.8 kg/m2 Mercy Nicksydnie WATCH REPAIR TECHNICIAN.[employer] Work Phone: [facility] 08-21-2024 10:24-0400 Body weight 118.39 kg Mercy Nicksydnie WATCH REPAIR TECHNICIAN.[employer] Work Phone: [facility] 08-21-2024 10:24-0400 Diastolic blood pressure 78 mm[Hg] Mercy Parham WATCH REPAIR TECHNICIAN.[employer] Work Phone: [facility] 08-21-2024 10:24-0400 Systolic blood pressure 116 mm[Hg] Mercy Parham WATCH REPAIR TECHNICIAN.[employer] Work Phone: [facility] 08-05-2024 09:15-0400 Body mass index (BMI) [Ratio] 43.74 kg/m2 Komal Booth MD Work Phone: [facility] 08-05-2024 09:15-0400 Body weight 115.67 kg Komal Booth MD Work Phone: [facility] 08-05-2024 09:15-0400 Diastolic blood pressure 84 mm[Hg] Komal Booth MD Work Phone: [facility] 08-05-2024 09:15-0400 Systolic blood pressure 126 mm[Hg] Komal Booth MD Work Phone: [facility] 06-17-2024 10:47-0400 Body height 162.6 cm Farheen Almendarez WATCH REPAIR TECHNICIAN.[employer] Work Phone: [facility] 06-17-2024 10:47-0400 Body mass index (BMI) [Ratio] 46.32 kg/m2 Farheen Almendarez WATCH REPAIR TECHNICIAN.[employer] Work Phone: [facility] 06-17-2024 10:47-0400 Body temperature 98.01 [degF] Farheen Almendarez WATCH REPAIR TECHNICIAN.[employer] Work Phone: [facility] 06-17-2024 10:47-0400 Body weight 122.47 kg Farheen Almendarez WATCH REPAIR TECHNICIAN.[employer] Work Phone: [facility] 06-17-2024 10:47-0400 Diastolic blood pressure 76 mm[Hg] Farheen Almendarez WATCH REPAIR TECHNICIAN.[employer] Work Phone: [facility] 06-17-2024 10:47-0400 Heart rate 64 /min Farheen Almendarez WATCH REPAIR TECHNICIAN.[employer] Work Phone: [facility] 06-17-2024 10:47-0400 Respiratory rate 19 /min Farheen Almendarez WATCH REPAIR TECHNICIAN.[employer] Work Phone: [facility] 06-17-2024 10:47-0400 SaO2% (BldA) [Mass fraction] 98 % Farheen Almendarez WATCH REPAIR TECHNICIAN.[employer] Work Phone: [facility] 06-17-2024 10:47-0400 Systolic blood pressure 122 mm[Hg] Farheen Almendarez WATCH REPAIR TECHNICIAN.[employer] Work Phone: [facility] 05-06-2024 14:41-0500 Body temperature 97.81 [degF] Royce Landers MD Work Phone: [facility] 05-06-2024 14:41-0500 Body weight 122.47 kg Royce Landers MD Work Phone: [facility] 05-06-2024 14:41-0500 Diastolic blood pressure 77 mm[Hg] Royce Landers MD Work Phone: [facility] 05-06-2024 14:41-0500 Heart rate 81 /min Royce Landers MD Work Phone: [facility] 05-06-2024 14:41-0500 Respiratory rate 16 /min Royce Landers MD Work Phone: [facility] 05-06-2024 14:41-0500 SaO2% (BldA) [Mass fraction] 97 % Royce Landers MD Work Phone: [facility] 05-06-2024 14:41-0500 Systolic blood pressure 112 mm[Hg] Royce Landers MD Work Phone: [facility] 04-07-2024 09:12-0500 Body height 162.6 cm Farheen Almendarez WATCH REPAIR TECHNICIAN.[employer] Work Phone: [facility] 04-07-2024 09:12-0500 Body mass index (BMI) [Ratio] 48.2 kg/m2 Farheen Almendarez WATCH REPAIR TECHNICIAN.[employer] Work Phone: [facility] 04-07-2024 09:12-0500 Body temperature 98.4 [degF] Farheen Almendarez WATCH REPAIR TECHNICIAN.[employer] Work Phone: [facility] 04-07-2024 09:12-0500 Body weight 127.46 kg Farheen Almendarez WATCH REPAIR TECHNICIAN.[employer] Work Phone: [facility] 04-07-2024 09:12-0500 Diastolic blood pressure 78 mm[Hg] Farheen Almendarez WATCH REPAIR TECHNICIAN.[employer] Work Phone: [facility] 04-07-2024 09:12-0500 Heart rate 77 /min Farheen Almendarez WATCH REPAIR TECHNICIAN.[employer] Work Phone: [facility] 04-07-2024 09:12-0500 SaO2% (BldA) [Mass fraction] 95 % Farheen Almendarez WATCH REPAIR TECHNICIAN.[employer] Work Phone: [facility] 04-07-2024 09:12-0500 Systolic blood pressure 126 mm[Hg] Farheen Trisimon WATCH REPAIR TECHNICIAN.[employer] Work Phone: [facility] 03-14-2024 15:15-0500 Body mass index (BMI) [Ratio] 48.9 kg/m2 Mercy Nicksydnie WATCH REPAIR TECHNICIAN.[employer] Work Phone: [facility] 03-14-2024 15:15-0500 Body weight 129.28 kg Mercy Parham WATCH REPAIR TECHNICIAN.[employer] Work Phone: [facility] 03-14-2024 15:15-0500 Diastolic blood pressure 70 mm[Hg] Mercy Parham WATCH REPAIR TECHNICIAN.[employer] Work Phone: [facility] 03-14-2024 15:15-0500 Systolic blood pressure 124 mm[Hg] Mercy Parham WATCH REPAIR TECHNICIAN.[employer] Work Phone: [facility] 03-11-2024 16:33-0500 Body height 162.6 cm Candi Sahu MD Work Phone: [facility] 03-11-2024 16:33-0500 Body mass index (BMI) [Ratio] 48.04 kg/m2 Candi Sahu MD Work Phone: [facility] 03-11-2024 16:33-0500 Body weight 127 kg Candi Sahu MD Work Phone: [facility] 03-11-2024 16:33-0500 Diastolic blood pressure 85 mm[Hg] Candi Sahu MD Work Phone: [facility] 03-11-2024 16:33-0500 Heart rate 82 /min Candi Sahu MD Work Phone: [facility] 03-11-2024 16:33-0500 Respiratory rate 16 /min Candi Sahu MD Work Phone: [facility] 03-11-2024 16:33-0500 SaO2% (BldA) [Mass fraction] 100 % Candi Sahu MD Work Phone: [facility] 03-11-2024 16:33-0500 Systolic blood pressure 120 mm[Hg] Candi Sahu MD Work Phone: [facility] 03-10-2024 11:07-0500 Body mass index (BMI) [Ratio] 48.06 kg/m2 Vaibhav Fam WATCH REPAIR TECHNICIAN.[employer] Work Phone: [facility] 03-10-2024 11:07-0500 Body temperature 98.01 [degF] Vaibhav Fam WATCH REPAIR TECHNICIAN.[employer] Work Phone: [facility] 03-10-2024 11:07-0500 Body weight 127 kg Vaibhav Fam WATCH REPAIR TECHNICIAN.[employer] Work Phone: [facility] 03-10-2024 11:07-0500 Diastolic blood pressure 74 mm[Hg] Vaibhav Fam WATCH REPAIR TECHNICIAN.[employer] Work Phone: [facility] 03-10-2024 11:07-0500 Heart rate 94 /min Vaibhav Fam WATCH REPAIR TECHNICIAN.[employer] Work Phone: [facility] 03-10-2024 11:07-0500 Respiratory rate 18 /min Vaibhav Fam WATCH REPAIR TECHNICIAN.FR[employer] Work Phone: [facility] 03-10-2024 11:07-0500 SaO2% (BldA) [Mass fraction] 96 % Vaibhav Fam WATCH REPAIR TECHNICIAN.[employer] Work Phone: [facility] 03-10-2024 11:07-0500 Systolic blood pressure 126 mm[Hg] Vaibhav Fam WATCH REPAIR TECHNICIAN.[employer] Work Phone: [facility] 02-08-2024 14:45-0500 Body height 162.6 cm Farheen Almendarez APRN.[employer] Work Phone: [facility] 02-08-2024 14:45-0500 Body mass index (BMI) [Ratio] 48.58 kg/m2 Farheen Almendarez WATCH REPAIR TECHNICIAN.[employer] Work Phone: [facility] 02-08-2024 14:45-0500 Body temperature 97.59 [degF] Farheen Almendarez WATCH REPAIR TECHNICIAN.[employer] Work Phone: [facility] 02-08-2024 14:45-0500 Body weight 128.37 kg Farheen Almendarez WATCH REPAIR TECHNICIAN.[employer] Work Phone: [facility] 02-08-2024 14:45-0500 Diastolic blood pressure 78 mm[Hg] Farheen Trill WATCH REPAIR TECHNICIAN.FR[employer] Work Phone: [facility] 02-08-2024 14:45-0500 Heart rate 67 /min Farheen Trisimon WATCH REPAIR TECHNICIAN.[employer] Work Phone: [facility] 02-08-2024 14:45-0500 Respiratory rate 16 /min Farheen Almendarez WATCH REPAIR TECHNICIAN.FR[employer] Work Phone: [facility] 02-08-2024 14:45-0500 SaO2% (BldA) [Mass fraction] 98 % Farheen Almendarez WATCH REPAIR TECHNICIAN.[employer] Work Phone: [facility] 02-08-2024 14:45-0500 Systolic blood pressure 122 mm[Hg] Farheen Trisimon WATCH REPAIR TECHNICIAN.[employer] Work Phone: [facility] 10-03-2023 10:33-0400 Body height 162.6 cm Farheen Trisimon WATCH REPAIR TECHNICIAN.[employer] Work Phone: [facility] 10-03-2023 10:33-0400 Body mass index (BMI) [Ratio] 49.61 kg/m2 Farheen Trisimon WATCH REPAIR TECHNICIAN.[employer] Work Phone: [facility] 10-03-2023 10:33-0400 Body temperature 97.9 [degF] Farheen Almendarez WATCH REPAIR TECHNICIAN.[employer] Work Phone: [facility] 10-03-2023 10:33-0400 Body weight 131.09 kg Farheen Trisimon WATCH REPAIR TECHNICIAN.[employer] Work Phone: [facility] 10-03-2023 10:33-0400 Diastolic blood pressure 64 mm[Hg] Farheen Trill WATCH REPAIR TECHNICIAN.FR[employer] Work Phone: [facility] 10-03-2023 10:33-0400 Heart rate 76 /min Farheen Almendarez WATCH REPAIR TECHNICIAN.FR[employer] Work Phone: [facility] 10-03-2023 10:33-0400 SaO2% (BldA) [Mass fraction] 98 % Farheen Almendarez WATCH REPAIR TECHNICIAN.[employer] Work Phone: [facility] 10-03-2023 10:33-0400 Systolic blood pressure 110 mm[Hg] Farheen Almendarez WATCH REPAIR TECHNICIAN.[employer]UIT HARVESTER Work Phone: [facility] 08-29-2023 08:55-0400 Body height 162.6 cm Farheen Almendarez WATCH REPAIR TECHNICIAN.FRUIT HAR[employer]STER Work Phone: [facility] 08-29-2023 08:55-0400 Body mass index (BMI) [Ratio] 48.92 kg/m2 Farheen Trisimon WATCH REPAIR TECHNICIAN.FRUIT HAR[employer]STER Work Phone: [facility] 08-29-2023 08:55-0400 Body temperature 97.59 [degF] Farheen Almendarez APRN.FR[employer] HAR[employer] Work Phone: [facility] 08-29-2023 08:55-0400 Body weight 129.28 kg Farheen Almendarez WATCH REPAIR TECHNICIAN.FRUIT HAR[employer] Work Phone: [facility] 08-29-2023 08:55-0400 Diastolic blood pressure 76 mm[Hg] Farheen Almendarez WATCH REPAIR TECHNICIAN.FRUIT HARVESTER Work Phone: [facility] 08-29-2023 08:55-0400 Heart rate 80 /min Farheen Almendarez WATCH REPAIR TECHNICIAN.FRUIT HARVESTER Work Phone: [facility] 08-29-2023 08:55-0400 Respiratory rate 16 /min Farheen Almendarez WATCH REPAIR TECHNICIAN.FRUIT HARVESTER Work Phone: [facility] 08-29-2023 08:55-0400 SaO2% (BldA) [Mass fraction] 98 % Farheen Almendarez WATCH REPAIR TECHNICIAN.FRUIT HARVESTER Work Phone: [facility] 08-29-2023 08:55-0400 Systolic blood pressure 124 mm[Hg] Farheen Trisimon WATCH REPAIR TECHNICIAN.FRUIT HARVESTER Work Phone: [facility] 08-21-2023 11:40-0400 Body mass index (BMI) [Ratio] 48.44 kg/m2 Constanza Reilly MD Work Phone: [facility] 08-21-2023 11:40-0400 Body weight 128 kg Constanza Reilly MD Work Phone: [facility] 08-06-2023 10:05-0400 Body height 162.6 cm Farheen Almendarez APRN.FRUIT HARVESTER Work Phone: [facility] 08-06-2023 10:05-0400 Body mass index (BMI) [Ratio] 49.26 kg/m2 Farheen Almendarez APRN.FRUIT HARVESTER Work Phone: [facility] 08-06-2023 10:05-0400 Body temperature 97.81 [degF] Farheen Almendarez APRN.FRUIT HARVESTER Work Phone: [facility] 08-06-2023 10:05-0400 Body weight 130.18 kg Farheen Almendarez APRN.FRUIT HARVESTER Work Phone: [facility] 08-06-2023 10:05-0400 Diastolic blood pressure 74 mm[Hg] Farheen Almendarez APRN.FRUIT HARVESTER Work Phone: [facility] 08-06-2023 10:05-0400 Heart rate 76 /min Farheen Almendarez APRN.FRUIT HARVESTER Work Phone: [facility] 08-06-2023 10:05-0400 SaO2% (BldA) [Mass fraction] 98 % Farheen Almendarez APRN.FRUIT HARVESTER Work Phone: [facility] 08-06-2023 10:05-0400 Systolic blood pressure 126 mm[Hg] Farheen Almendarez APRN.FRUIT HARVESTER Work Phone: [facility] 08-01-2023 14:07-0400 Body mass index (BMI) [Ratio] 48.49 kg/m2 Komal Booth MD Work Phone: [facility] 08-01-2023 14:07-0400 Body weight 128.82 kg Komal Booth MD Work Phone: [facility] 08-01-2023 14:07-0400 Diastolic blood pressure 84 mm[Hg] Komal Booth MD Work Phone: [facility] 08-01-2023 14:07-0400 Systolic blood pressure 126 mm[Hg] Komal Booth MD Work Phone: [facility] 07-28-2023 13:31-0400 Body mass index (BMI) [Ratio] 49.42 kg/m2 Krislyn Aberegg PA Work Phone: [facility] 07-28-2023 13:31-0400 Body temperature 97.81 [degF] Krislyn Aberegg PA Work Phone: [facility] 07-28-2023 13:31-0400 Body weight 131.3 kg Krislyn Aberegg PA Work Phone: [facility] 07-28-2023 13:31-0400 Diastolic blood pressure 74 mm[Hg] Krislyn Aberegg PA Work Phone: [facility] 07-28-2023 13:31-0400 Heart rate 87 /min Krislyn Aberegg PA Work Phone: [facility] 07-28-2023 13:31-0400 Respiratory rate 18 /min Krislyn Aberegg PA Work Phone: [facility] 07-28-2023 13:31-0400 SaO2% (BldA) [Mass fraction] 100 % Krislyn Aberegg PA Work Phone: [facility] 07-28-2023 13:31-0400 Systolic blood pressure 106 mm[Hg] Krislyn Aberegg PA Work Phone: [facility] 07-11-2023 10:37-0400 Body weight 131.54 kg Komal Booth MD Work Phone: [facility] 07-11-2023 10:37-0400 Diastolic blood pressure 82 mm[Hg] Komal Booth MD Work Phone: [facility] 07-11-2023 10:37-0400 Systolic blood pressure 126 mm[Hg] Komal Booth MD Work Phone: [facility] 07-09-2023 14:47-0400 Body height 163 cm Constanza Reilly MD Work Phone: [facility] 07-09-2023 14:47-0400 Body temperature 97.5 [degF] Constanza Reilly MD Work Phone: [facility] 07-09-2023 14:47-0400 Body weight 133.05 kg Constanza Reilly MD Work Phone: [facility] 07-09-2023 14:47-0400 Diastolic blood pressure 86 mm[Hg] Constanza Reilly MD Work Phone: [facility] 07-09-2023 14:47-0400 Heart rate 77 /min Constanza Reilly MD Work Phone: [facility] 07-09-2023 14:47-0400 Systolic blood pressure 125 mm[Hg] Constanza Reilly MD Work Phone: [facility] 06-20-2023 09:01-0400 Body height 152.4 cm Komal Booth MD Work Phone: [facility] 06-20-2023 09:01-0400 Body weight 133.36 kg Komal Booth MD Work Phone: [facility] 06-11-2023 15:38-0400 Body height 152.4 cm Farheen Trill WATCH REPAIR TECHNICIAN.FRUIT HARVESTER Work Phone: [facility] 06-11-2023 15:38-0400 Body temperature 98.71 [degF] Farheen Trill WATCH REPAIR TECHNICIAN.FRUIT HARVESTER Work Phone: [facility] 06-11-2023 15:38-0400 Body weight 131.54 kg Farheen Trill WATCH REPAIR TECHNICIAN.FRUIT HARVESTER Work Phone: [facility] 06-11-2023 15:38-0400 Diastolic blood pressure 74 mm[Hg] Farheen Trill WATCH REPAIR TECHNICIAN.FRUIT HARVESTER Work Phone: [facility] 06-11-2023 15:38-0400 Heart rate 118 /min Farheen Trill WATCH REPAIR TECHNICIAN.FRUIT HARVESTER Work Phone: [facility] 06-11-2023 15:38-0400 SaO2% (BldA) [Mass fraction] 100 % Farheen Trill WATCH REPAIR TECHNICIAN.FRUIT HARVESTER Work Phone: [facility] 06-11-2023 15:38-0400 Systolic blood pressure 126 mm[Hg] Farheen Trill WATCH REPAIR TECHNICIAN.FRUIT HARVESTER Work Phone: [facility] 06-04-2023 08:47-0400 Body weight 132 kg Gela Groves MD Work Phone: [facility] 06-04-2023 08:47-0400 Diastolic blood pressure 68 mm[Hg] Gela Groves MD Work Phone: [facility] 06-04-2023 08:47-0400 Systolic blood pressure 120 mm[Hg] Gela Groves MD Work Phone: [facility] 05-08-2023 15:46-0500 Body height 152.4 cm Farheen Trill WATCH REPAIR TECHNICIAN.FRUIT HARVESTER Work Phone: [facility] 05-08-2023 15:46-0500 Body temperature 97.81 [degF] Farheen Trill WATCH REPAIR TECHNICIAN.FRUIT HARVESTER Work Phone: [facility] 05-08-2023 15:46-0500 Body weight 130.18 kg Farheen Trill WATCH REPAIR TECHNICIAN.FRUIT HARVESTER Work Phone: [facility] 05-08-2023 15:46-0500 Diastolic blood pressure 76 mm[Hg] Farheen Trill WATCH REPAIR TECHNICIAN.FRUIT HARVESTER Work Phone: [facility] 05-08-2023 15:46-0500 Heart rate 78 /min Farheen Trill WATCH REPAIR TECHNICIAN.FRUIT HARVESTER Work Phone: [facility] 05-08-2023 15:46-0500 SaO2% (BldA) [Mass fraction] 95 % Farheen Trill WATCH REPAIR TECHNICIAN.FRUIT HARVESTER Work Phone: [facility] 05-08-2023 15:46-0500 Systolic blood pressure 122 mm[Hg] Farheen Almendarez APRN.FRUIT HARVESTER Work Phone: [facility] 11-06-2022 09:28-0400 Body weight 133.27 kg Nurse Currie Work Phone: [facility] 11-06-2022 09:28-0400 Diastolic blood pressure 78 mm[Hg] Nurse Currie Work Phone: [facility] 11-06-2022 09:28-0400 Heart rate 91 /min Nurse Currie Work Phone: [facility] 11-06-2022 09:28-0400 Systolic blood pressure 120 mm[Hg] Nurse Currie Work Phone: [facility] 08-29-2022 09:03-0400 Body height 152.4 cm Farheen Almendarez APRN.FRUIT HARVESTER Work Phone: [facility] 08-29-2022 09:03-0400 Body temperature 98.29 [degF] Farheen Almendarez APRN.FRUIT HARVESTER Work Phone: [facility] 08-29-2022 09:03-0400 Body weight 139.71 kg Farheen Almendarez APRN.FRUIT HARVESTER Work Phone: [facility] 08-29-2022 09:03-0400 Diastolic blood pressure 78 mm[Hg] Farheen Almendarez APRN.FRUIT HARVESTER Work Phone: [facility] 08-29-2022 09:03-0400 Heart rate 79 /min Farheen Almendarez APRN.FRUIT HARVESTER Work Phone: [facility] 08-29-2022 09:03-0400 SaO2% (BldA) [Mass fraction] 98 % Farheen Almendarez APRN.FRUIT HARVESTER Work Phone: [facility] 08-29-2022 09:03-0400 Systolic blood pressure 124 mm[Hg] Farheen Almendarez APRN.FRUIT HARVESTER Work Phone: [facility] 07-03-2022 09:53-0400 Diastolic blood pressure 80 mm[Hg] Nurse Currie Work Phone: [facility] 07-03-2022 09:53-0400 Systolic blood pressure 126 mm[Hg] Nurse Currie Work Phone: [facility] 05-29-2022 09:33-0500 Diastolic blood pressure 86 mm[Hg] Farheen Almendarez APRN.FRUIT HARVESTER Work Phone: [facility] 05-29-2022 09:33-0500 Systolic blood pressure 134 mm[Hg] Farheen Almendarez APRN.FRUIT HARVESTER Work Phone: [facility] 05-29-2022 09:09-0500 Body height 162.6 cm Farheen Almendarez APRN.FRUIT HARVESTER Work Phone: [facility] 05-29-2022 09:09-0500 Body temperature 97.81 [degF] Farheen Almendarez APRN.FRUIT HARVESTER Work Phone: [facility] 05-29-2022 09:09-0500 Body weight 140.62 kg Farheen Almendarez APRN.FRUIT HARVESTER Work Phone: [facility] 05-29-2022 09:09-0500 Heart rate 78 /min Farheen Almendarez APRN.FRUIT HARVESTER Work Phone: [facility] 05-29-2022 09:09-0500 SaO2% (BldA) [Mass fraction] 98 % Farheen Almendarez APRN.FRUIT HARVESTER Work Phone: [facility] 04-03-2022 09:27-0500 Diastolic blood pressure 76 mm[Hg] Nurse Breanna Work Phone: [facility] 04-03-2022 09:27-0500 Systolic blood pressure 128 mm[Hg] Nurse Currie Work Phone: [facility] 02-07-2022 08:43-0500 Body height 162.6 cm Candi Sahu MD Work Phone: [facility] 02-07-2022 08:43-0500 Body weight 141.07 kg Candi Sahu MD Work Phone: [facility] 02-07-2022 08:43-0500 Diastolic blood pressure 89 mm[Hg] Candi Sahu MD Work Phone: [facility] 02-07-2022 08:43-0500 Heart rate 69 /min Candi Sahu MD Work Phone: [facility] 02-07-2022 08:43-0500 SaO2% (BldA) [Mass fraction] 98 % Candi Sahu MD Work Phone: [facility] 02-07-2022 08:43-0500 Systolic blood pressure 151 mm[Hg] Candi Sahu MD Work Phone: [facility] 02-06-2022 10:44-0500 Diastolic blood pressure 101 mm[Hg] Farheen Trisimon WATCH REPAIR TECHNICIAN.FRUIT HARVESTER Work Phone: [facility] 02-06-2022 10:44-0500 Systolic blood pressure 154 mm[Hg] Farheen Trill WATCH REPAIR TECHNICIAN.FRUIT HARVESTER Work Phone: [facility] 02-06-2022 10:21-0500 Body height 162.6 cm Farheen Trisimon WATCH REPAIR TECHNICIAN.FRUIT HARVESTER Work Phone: [facility] 02-06-2022 10:21-0500 Body temperature 98.01 [degF] Farheen Trill WATCH REPAIR TECHNICIAN.FRUIT HARVESTER Work Phone: [facility] 02-06-2022 10:21-0500 Body weight 142.43 kg Farheen Trisimon WATCH REPAIR TECHNICIAN.FRUIT HARVESTER Work Phone: [facility] 02-06-2022 10:21-0500 Heart rate 74 /min Farheen Trisimon WATCH REPAIR TECHNICIAN.FRUIT HARVESTER Work Phone: [facility] 02-06-2022 10:21-0500 SaO2% (BldA) [Mass fraction] 97 % Farheen Trill WATCH REPAIR TECHNICIAN.FRUIT HARVESTER Work Phone: [facility] 01-31-2022 18:24-0500 Body height 162.6 cm Kacie Bird WATCH REPAIR TECHNICIAN.FRUIT HARVESTER Work Phone: [facility] 01-31-2022 18:24-0500 Body temperature 97.7 [degF] Kacie Bird WATCH REPAIR TECHNICIAN.FRUIT HARVESTER Work Phone: [facility] 01-31-2022 18:24-0500 Body weight 140.16 kg Kacie Bird WATCH REPAIR TECHNICIAN.FRUIT HARVESTER Work Phone: [facility] 01-31-2022 18:24-0500 Diastolic blood pressure 88 mm[Hg] Kacie Bidr WATCH REPAIR TECHNICIAN.FRUIT HARVESTER Work Phone: [facility] 01-31-2022 18:24-0500 Heart rate 96 /min Kacie Bird WATCH REPAIR TECHNICIAN.FRUIT HARVESTER Work Phone: [facility] 01-31-2022 18:24-0500 Respiratory rate 16 /min Kacie Bird WATCH REPAIR TECHNICIAN.FRUIT HARVESTER Work Phone: [facility] 01-31-2022 18:24-0500 SaO2% (BldA) [Mass fraction] 98 % Kacie Bird WATCH REPAIR TECHNICIAN.FRUIT HARVESTER Work Phone: [facility] 01-31-2022 18:24-0500 Systolic blood pressure 143 mm[Hg] Kacie Bird WATCH REPAIR TECHNICIAN.FRUIT HARVESTER Work Phone: [facility] 11-22-2021 14:24-0400 Body height 162.6 cm Farheen Trill WATCH REPAIR TECHNICIAN.FRUIT HARVESTER Work Phone: [facility] 11-22-2021 14:24-0400 Body temperature 98.29 [degF] Farheen Trill WATCH REPAIR TECHNICIAN.FRUIT HARVESTER Work Phone: [facility] 11-22-2021 14:24-0400 Body weight 139.25 kg Farheen Trill WATCH REPAIR TECHNICIAN.FRUIT HARVESTER Work Phone: [facility] 11-22-2021 14:24-0400 Diastolic blood pressure 76 mm[Hg] Farheen Trill WATCH REPAIR TECHNICIAN.FRUIT HARVESTER Work Phone: [facility] 11-22-2021 14:24-0400 Heart rate 102 /min Farheen Trill WATCH REPAIR TECHNICIAN.FRUIT HARVESTER Work Phone: [facility] 11-22-2021 14:24-0400 Respiratory rate 18 /min Farheen Trill WATCH REPAIR TECHNICIAN.FRUIT HARVESTER Work Phone: [facility] 11-22-2021 14:24-0400 SaO2% (BldA) [Mass fraction] 98 % Farheen Trill WATCH REPAIR TECHNICIAN.FRUIT HARVESTER Work Phone: [facility] 11-22-2021 14:24-0400 Systolic blood pressure 122 mm[Hg] Farheen Trill WATCH REPAIR TECHNICIAN.FRUIT HARVESTER Work Phone: [facility] 11-02-2021 16:00-0400 Body height 162.6 cm Aye Paola WATCH REPAIR TECHNICIAN.FRUIT HARVESTER Work Phone: [facility] 11-02-2021 16:00-0400 Body temperature 98.2 [degF] Aye Paola WATCH REPAIR TECHNICIAN.FRUIT HARVESTER Work Phone: [facility] 11-02-2021 16:00-0400 Body weight 139.71 kg Aye Paola WATCH REPAIR TECHNICIAN.FRUIT HARVESTER Work Phone: [facility] 11-02-2021 16:00-0400 Diastolic blood pressure 76 mm[Hg] Aye Paola WATCH REPAIR TECHNICIAN.FRUIT HARVESTER Work Phone: [facility] 11-02-2021 16:00-0400 Heart rate 86 /min Aye Paola WATCH REPAIR TECHNICIAN.FRUIT HARVESTER Work Phone: [facility] 11-02-2021 16:00-0400 Respiratory rate 18 /min Aye Paola WATCH REPAIR TECHNICIAN.FRUIT HARVESTER Work Phone: [facility] 11-02-2021 16:00-0400 SaO2% (BldA) [Mass fraction] 98 % Aye Paola WATCH REPAIR TECHNICIAN.FRUIT HARVESTER Work Phone: [facility] 11-02-2021 16:00-0400 Systolic blood pressure 122 mm[Hg] Aye Paola WATCH REPAIR TECHNICIAN.FRUIT HARVESTER Work Phone: [facility] 10-04-2021 10:46-0400 Body height 162.6 cm Farheen Trill WATCH REPAIR TECHNICIAN.FRUIT HARVESTER Work Phone: [facility] 10-04-2021 10:46-0400 Body temperature 98.01 [degF] Farheen Trill WATCH REPAIR TECHNICIAN.FRUIT HARVESTER Work Phone: [facility] 10-04-2021 10:46-0400 Body weight 139.71 kg Farheen Trill WATCH REPAIR TECHNICIAN.FRUIT HARVESTER Work Phone: [facility] 10-04-2021 10:46-0400 Diastolic blood pressure 90 mm[Hg] Farheen Trill WATCH REPAIR TECHNICIAN.FRUIT HARVESTER Work Phone: [facility] 10-04-2021 10:46-0400 Heart rate 81 /min Farheen Trill WATCH REPAIR TECHNICIAN.FRUIT HARVESTER Work Phone: [facility] 10-04-2021 10:46-0400 SaO2% (BldA) [Mass fraction] 96 % Farheen Trill WATCH REPAIR TECHNICIAN.FRUIT HARVESTER Work Phone: [facility] 10-04-2021 10:46-0400 Systolic blood pressure 128 mm[Hg] Farheen Trill WATCH REPAIR TECHNICIAN.FRUIT HARVESTER Work Phone: [facility] 08-31-2021 10:21-0400 Body height 162.6 cm Farheen Trill WATCH REPAIR TECHNICIAN.FRUIT HARVESTER Work Phone: [facility] 08-31-2021 10:21-0400 Body temperature 98.01 [degF] Farheen Trill WATCH REPAIR TECHNICIAN.FRUIT HARVESTER Work Phone: [facility] 08-31-2021 10:21-0400 Body weight 140.62 kg Farheen Trill WATCH REPAIR TECHNICIAN.FRUIT HARVESTER Work Phone: [facility] 08-31-2021 10:21-0400 Diastolic blood pressure 72 mm[Hg] Farheen Trill WATCH REPAIR TECHNICIAN.FRUIT HARVESTER Work Phone: [facility] 08-31-2021 10:21-0400 Heart rate 89 /min Farheen Trill WATCH REPAIR TECHNICIAN.FRUIT HARVESTER Work Phone: [facility] 08-31-2021 10:21-0400 SaO2% (BldA) [Mass fraction] 99 % Farheen Trill WATCH REPAIR TECHNICIAN.FRUIT HARVESTER Work Phone: [facility] 08-31-2021 10:21-0400 Systolic blood pressure 110 mm[Hg] Farheen Trill WATCH REPAIR TECHNICIAN.FRUIT HARVESTER Work Phone: [facility] 08-03-2021 10:07-0400 Body height 162.6 cm Farheen Trill WATCH REPAIR TECHNICIAN.FRUIT HARVESTER Work Phone: [facility] 08-03-2021 10:07-0400 Body temperature 97.81 [degF] Farheen Trill WATCH REPAIR TECHNICIAN.FRUIT HARVESTER Work Phone: [facility] 08-03-2021 10:07-0400 Body weight 139.25 kg Farheen Trill WATCH REPAIR TECHNICIAN.FRUIT HARVESTER Work Phone: [facility] 08-03-2021 10:07-0400 Diastolic blood pressure 70 mm[Hg] Farheen Trill WATCH REPAIR TECHNICIAN.FRUIT HARVESTER Work Phone: [facility] 08-03-2021 10:07-0400 Heart rate 75 /min Farheen Trill WATCH REPAIR TECHNICIAN.FRUIT HARVESTER Work Phone: [facility] 08-03-2021 10:07-0400 SaO2% (BldA) [Mass fraction] 98 % Farheen Trill WATCH REPAIR TECHNICIAN.FRUIT HARVESTER Work Phone: [facility] 08-03-2021 10:07-0400 Systolic blood pressure 108 mm[Hg] Farheen Trill WATCH REPAIR TECHNICIAN.FRUIT HARVESTER Work Phone: [facility] 06-30-2021 15:42-0400 Body height 162.6 cm Aye Paola WATCH REPAIR TECHNICIAN.FRUIT HARVESTER Work Phone: [facility] 06-30-2021 15:42-0400 Body temperature 98.2 [degF] Aye Paola WATCH REPAIR TECHNICIAN.FRUIT HARVESTER Work Phone: [facility] 06-30-2021 15:42-0400 Body weight 138.44 kg Aye Paola WATCH REPAIR TECHNICIAN.FRUIT HARVESTER Work Phone: [facility] 06-30-2021 15:42-0400 Diastolic blood pressure 70 mm[Hg] Aye Paola WATCH REPAIR TECHNICIAN.FRUIT HARVESTER Work Phone: [facility] 06-30-2021 15:42-0400 Heart rate 70 /min Aye Paola WATCH REPAIR TECHNICIAN.FRUIT HARVESTER Work Phone: [facility] 06-30-2021 15:42-0400 Respiratory rate 18 /min Aye Paola WATCH REPAIR TECHNICIAN.FRUIT HARVESTER Work Phone: [facility] 06-30-2021 15:42-0400 SaO2% (BldA) [Mass fraction] 98 % Aye Paola WATCH REPAIR TECHNICIAN.FRUIT HARVESTER Work Phone: [facility] 06-30-2021 15:42-0400 Systolic blood pressure 110 mm[Hg] Aye Paola WATCH REPAIR TECHNICIAN.FRUIT HARVESTER Work Phone: [facility] Encounters Encounter Date Encounter Type Care Provider Facility Start: 11-28-2024 ambulatory [facility] Facility:[facility] Start: 11-25-2024 Encounter for other preprocedural examination [facility] Start: 11-19-2024 ambulatory UNKNOWN PROVIDER Facili ty:[facility] Start: 11-19-2024 End: 11-19-2024 Subsequent hospital visit by physician [facility] Work Phone: Molecular Imaging Comment on above: Hyperparathyroidism (HCC) [E21.3] Start: 11-19-2024 ambulatory UNKNOWN PROVIDER Facili ty:[facility] Start: 11-19-2024 End: 11-19-2024 Subsequent hospital visit by physician [facility] Work Phone: Molecular Imaging Comment on above: Hyperparathyroidism (HCC) [E21.3] Start: 11-18-2024 End: 11-18-2024 ambulatory GUERO GUILLEN Facility:[facility] Start: 11-17-2024 End: 11-17-2024 Refill Farheen Almendarez WATCH REPAIR TECHNICIAN.FRUIT HARVESTER Work Phone: [facility] Comment on above: Refill Request Start: 11-13-2024 End: 11-13-2024 Patient encounter procedure Komal Booth MD Work Phone: OB/Gynecology Comment on above: Menorrhagia with irr egular cycle (Primary Dx); Postoperative pain; Dysmenorrhea; Malpositioned IUD, initial encounter Start: 11-13-2024 End: 11-13-2024 ambulatory KOMAL BOOTH Facility:[facility] Start: 11-10-2024 End: 11-10-2024 Patient encounter procedure Gonzalo Hernadez MD Work Phone: Endocrine Surgery Comment on above: Primary hyperparathy roidism (HCC) (Primary Dx) Start: 11-10-2024 End: 11-10-2024 ambulatory GONZALO HERNADEZ Facility:[facility] Start: 11-08-2024 End: 11-08-2024 ambulatory CANDI SAHU Facility:[facility] Start: 11-06-2024 End: 11-06-2024 ambulatory FARHEEN ALMENDAREZ Facility:[facility] Start: 11-04-2024 End: 11-04-2024 Refill Farheen Almendarez WATCH REPAIR TECHNICIAN.FRUIT HARVESTER Work Phone: [facility] Comment on above: Refill Request Start: 10-21-2024 End: 10-21-2024 Orders Only Guero Guillen MD Work Phone: Pain Management Comment on above: Lumbar facet joint s yndrome (Primary Dx) Start: 10-20-2024 End: 10-20-2024 Patient encounter procedure Guero Guillen MD Work Phone: Pain Management Comment on above: Lumbar facet joint s yndrome (Primary Dx); 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 pain Start: 10-20-2024 End: 10-20-2024 ambulatory GUERO GUILLEN Facility:[facility] Start: 10-17-2024 End: 10-17-2024 E-mail encounter from caregiver [facility] Start: 10-17-2024 End: 10-17-2024 Patient encounter procedure [facility] Provider Pain Managem ent Comment on above: Instructions & Requi rements for Your Upcoming Appointment Start: 10-17-2024 End: 10-17-2024 Telephone encounter Farheen Almendarez APRN.FRUIT HARVESTER Work Phone: [facility] Comment on above: Electronic Communica tion (Prior auth for zepbound) Start: 10-15-2024 End: 10-16-2024 Refill Farheen Almendarez APRN.FRUIT HARVESTER Work Phone: [facility] Comment on above: Refill Request Start: 10-15-2024 End: 10-16-2024 Refill Farheen Almendarez APRN.FRUIT HARVESTER Work Phone: [facility] Comment on above: Refill Request Start: 10-07-2024 End: 10-07-2024 Patient encounter procedure Candi Sahu MD Work Phone: Endocrinology Comment on above: Hyperparathyroidism (HCC) (Primary Dx); Vitamin D deficiency Start: 10-07-2024 End: 10-07-2024 ambulatory CANDI SAHU Facility:[facility] Start: 09-29-2024 End: 09-29-2024 Telephone encounter Komal Booth MD Work Phone: OB/Gynecology Comment on above: Results Start: 09-25-2024 End: 11-25-2024 Follow-up encounter Komal Booth MD Work Phone: OB/Gynecology Start: 09-23-2024 End: 09-23-2024 Patient encounter procedure [employer] [facility] OB/Gynecolog y Start: 09-23-2024 End: 09-23-2024 ambulatory [employer] [facility] [employer] Work Phone: OB/Gynecology Start: 09-23-2024 End: 09-23-2024 Subsequent hospital visit by physician [facility] Work Phone: Radiology Comment on above: Nipple discharge [N6 4.52] Start: 09-22-2024 End: 09-22-2024 Office outpatient new 45 minutes Fredo Ames MD Work Phone: [facility] Comment on above: 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 (Primary Dx) Start: 09-22-2024 End: 09-22-2024 ambulatory FARHEEN ALMENDAREZ Facility:[facility] Start: 09-22-2024 End: 09-22-2024 Subsequent hospital visit by physician [employer] [place] [employer] [facility] Comment on above: 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 [M51.362] Start: 09-07-2024 End: 11-07-2024 Follow-up encounter Farheen Almendarez APRN.CNP Work Phone: [facility] Comment on above: Results Start: 09-02-2024 End: 09-02-2024 Subsequent hospital visit by physician [facility] Comment on above: 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] Start: 09-02-2024 End: 09-02-2024 Patient encounter procedure Farheen Almendarez APRN.CNP Work Phone: [facility] Comment on above: Fatigue, unspecified type (Primary Dx); Brain fog; Insomnia, unspecified type; Acquired deformity of skull; Neck swelling; Vitamin D deficiency Start: 09-02-2024 End: 09-02-2024 ambulatory FARHEEN ALMENDAREZ Facility:[facility] Start: 09-01-2024 End: 09-01-2024 Telephone encounter Komal Booth MD Work Phone: Mammogram Start: 08-28-2024 End: 10-28-2024 Follow-up encounter Mercy Parham APRN.CNP Work Phone: OB/Gynecology Start: 08-25-2024 End: 10-25-2024 Follow-up encounter Farheen Almendarez APRN.CNP Work Phone: [facility] Comment on above: Results Start: 08-21-2024 End: 08-21-2024 Patient encounter procedure Mercy Nicksydnie CONTRERAS Work Phone: OB/Gynecology Comment on above: Encounter for gyneco logical examination (general) (routine) without abnormal findings (Primary Dx); Screening for cervical cancer; Screening for HPV (human papillomavirus) Start: 08-21-2024 End: 08-21-2024 Patient encounter status Mercy Nicksydnie CONTRERAS Work Phone: [facility] Start: 08-21-2024 End: 08-21-2024 ambulatory MERCY PARHAM Facility:[facility] Start: 08-21-2024 Encounter for gyneco logical examination (general) (routine) without abnormal findings MERCYSOHA NICKSYDNIE [facility] Start: 08-19-2024 ambulatory FARHEEN ALMENDAREZ Facilit y:[facility] Start: 08-19-2024 End: 08-19-2024 Subsequent hospital visit by physician Mri Radio [facility] (I-Stat/1.5t) Work Phone: Radiology Comment on above: Chronic midline low back pain without sciatica [M54.50, G89.29] Start: 08-06-2024 End: 2024 Follow-up encounter Farheen Almendarez APRN.FRUIT HARVESTER Work Phone: [facility] Start: 08-05-2024 End: 08-05-2024 Patient encounter procedure Komal Booth MD Work Phone: OB/Gynecology Comment on above: Dysmenorrhea (Primar y Dx); Menorrhagia with regular cycle; Nipple discharge Start: 08-05-2024 End: 08-05-2024 ambulatory CANDI SAHU Facility:[facility] Start: 07-28-2024 End: 07-28-2024 Telemedicine consultation with patient Farheen Almendarez APRN.CNP Work Phone: [facility] Start: 07-28-2024 End: 07-28-2024 ambulatory Farheen Almendarez APRN.CNP Work Phone: [facility] Comment on above: Chronic midline low back pain without sciatica (Primary Dx); Spondylosis without myelopathy or radiculopathy, lumbar region; Personal history of gastric bypass; Spinal stenosis of lumbar region, unspecified whether neurogenic claudication present Start: 07-21-2024 End: 07-21-2024 ambulatory Salvador Zhou PT Work Phone: [facility] Comment on above: Lumbar pain (Primary Dx) Start: 07-14-2024 End: 07-14-2024 ambulatory Salvador Zhou PT Work Phone: [facility] Comment on above: Lumbar pain (Primary Dx) Start: 07-07-2024 End: 07-07-2024 ambulatory Salvador Zhou PT Work Phone: [facility] Comment on above: Lumbar pain (Primary Dx) Start: 07-01-2024 End: 07-01-2024 ambulatory Salvador Winnie PT Work Phone: [facility] Comment on above: Lumbar pain (Primary Dx) Start: 06-17-2024 End: 06-17-2024 ambulatory FARHEEN ALMENDAREZ Facility:[facility] Start: 06-17-2024 End: 06-17-2024 Patient encounter procedure Farheen Almendarez APRN.FRUIT HARVESTER Work Phone: [facility] Comment on above: Chronic midline low back pain without sciatica; Class 3 severe obesity with serious comorbidity and body mass index (BMI) of 50.0 to 59.9 in adult, unspecified obesity type (HCC) Start: 05-06-2024 End: 05-06-2024 Office outpatient new 30 minutes Royce Landers MD Work Phone: [facility] Comment on above: Acute maxillary sinu sitis, recurrence not specified (Primary Dx) Start: 04-28-2024 End: 04-28-2024 Telephone encounter Farheen Almendarez APRN.FRUIT HARVESTER Work Phone: [facility] Comment on above: Results Start: 04-22-2024 ambulatory FARHEEN ALMENDAERZ [facility] Start: 04-22-2024 End: 04-22-2024 Subsequent hospital visit by physician X[facility] Comment on above: 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 [M51.362] Start: 04-15-2024 End: 04-15-2024 Refill Farheen Almendarez APRN.CNP Work Phone: [facility] Comment on above: Refill Request Start: 04-07-2024 End: 04-07-2024 Patient encounter procedure Farheen Almendarez APRN.FRUIT HARVESTER Work Phone: [facility] Comment on above: Well adult exam (Taniya hernandez Dx); Hypothyroidism, acquired; Obstructive sleep apnea; Class 3 severe obesity with serious comorbidity and body mass index (BMI) of 50.0 to 59.9 in adult, unspecified obesity type (HCC); 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 pain; Chronic bilateral low back pain with right-sided sciatica; Hemangioma of liver Start: 04-07-2024 End: 04-07-2024 Patient encounter status Farheen Almendarez APRN.FRUIT HARVESTER Work Phone: [facility] Work Phone: Start: 04-07-2024 End: 04-07-2024 ambulatory FARHEEN ALMENDAREZ Facility:[facility] Start: 04-07-2024 Encounter for genera l adult medical examination without abnormal findings FARHEEN ALMENDAREZ [facility] Start: 04-01-2024 End: 04-01-2024 Telephone encounter Farheen Almendarez APRN.CNP Work Phone: [facility] Start: 03-28-2024 End: 03-29-2024 Refill Farheen Almendarez APRN.FRUIT HARVESTER Work Phone: [facility] Comment on above: Refill Request Start: 03-21-2024 End: 03-24-2024 ambulatory Farheen Almendarez APRN.CNP Work Phone: [facility] Comment on above: Zepbound Start: 03-14-2024 End: 03-14-2024 Patient encounter procedure Mercy Parham APRN.CNP Work Phone: OB/Gynecology Comment on above: Retained tampon, seq uela (Primary Dx); Vaginal odor Start: 03-14-2024 End: 03-14-2024 ambulatory Mercy Parham APRN.FRUIT HARVESTER Work Phone: OB/Gynecology Comment on above: Prescriptions Start: 03-14-2024 End: 03-14-2024 E-mail encounter from caregiver Mercy Prasad RENEE.FRUIT HARVESTER Work Phone: OB/Gynecology Start: 03-11-2024 End: 03-11-2024 Patient encounter procedure Candi Sahu MD Work Phone: Endocrinology Comment on above: Hyperparathyroidism (HCC) (Primary Dx) Start: 03-11-2024 End: 03-11-2024 ambulatory CANDI SAHU Facility:[facility] Start: 03-10-2024 End: 03-10-2024 ambulatory FARHEEN ALMENDAREZ Facility:[facility] Start: 03-10-2024 End: 03-10-2024 Office outpatient visit 15 minutes Vaibhav Fam APRN.FRUIT HARVESTER Work Phone: [facility] Comment on above: Sore throat (Primary Dx); Viral illness Start: 02-17-2024 End: 02-18-2024 Telephone encounter Farheen Almendarez APRN.FRUIT HARVESTER Work Phone: [facility] Comment on above: Results (Labs) Start: 02-15-2024 End: 02-15-2024 ambulatory FARHEEN ALMENDAREZ Facility:[facility] Start: 02-08-2024 End: 02-08-2024 Patient encounter procedure Farheen Almendarez APRN.FRUIT HARVESTER Work Phone: [facility] Comment on above: New daily persistent headache (Primary Dx); Hyperglycemia Start: 02-08-2024 End: 02-08-2024 ambulatory FARHEEN ALMENDAREZ Facility:[facility] Start: 11-30-2023 End: 11-30-2023 ambulatory Farheen Almendarez APRN.FRUIT HARVESTER Work Phone: [facility] Comment on above: Anxiety Meds Start: 10-08-2023 Telephone encounter Farheen Almendarez APRN.FRUIT HARVESTER Work Phone: [facility] Comment on above: Results Start: 10-03-2023 End: 10-03-2023 Patient encounter procedure Farheen Almendarez WATCH REPAIR TECHNICIAN.FRUIT HARVESTER Work Phone: [facility] Comment on above: Cough due to GEORGI inh ibitor (Primary Dx); Primary hypertension; Hypothyroidism, acquired; Mild hyperlipidemia Start: 08-29-2023 Refill Farheen Mojica Tril l WATCH REPAIR TECHNICIAN.FRUIT HARVESTER Work Phone: [facility] Comment on above: Med Change Request Start: 08-29-2023 End: 08-29-2023 Patient encounter procedure Farheen Almendarez APRN.FRUIT HARVESTER Work Phone: [facility] Comment on above: Primary hypertension (Primary Dx); Hypothyroidism, acquired; Post-COVID chronic cough Start: 08-21-2023 End: 08-21-2023 ambulatory Constanza Reilly MD Work Phone: [facility] Comment on above: Class 3 obesity (HCC ); PCOS (polycystic ovarian syndrome) Start: 08-21-2023 End: 08-21-2023 Telemedicine consultation with patient Constanza Reilly MD Work Phone: [facility] Start: 08-17-2023 Refill Farheen Miltonl l WATCH REPAIR TECHNICIAN.FRUIT HARVESTER Work Phone: [facility] Comment on above: Refill Request Start: 08-06-2023 End: 08-06-2023 Patient encounter procedure Farheen Almendarez APRN.FRUIT HARVESTER Work Phone: [facility] Comment on above: Post-COVID chronic c ough (Primary Dx); Thrush Start: 08-01-2023 End: 08-01-2023 Patient encounter procedure Komal Booth MD Work Phone: OB/Gynecology Comment on above: Encounter for IUD in sertion (Primary Dx) Start: 07-28-2023 End: 07-28-2023 Patient encounter procedure Tia VANG Work Phone: [facility] Comment on above: Sore throat (Primary Dx) Start: 07-16-2023 ambulatory Komal rivera MD Work Phone: OB/Gynecology Comment on above: Biopsy Results Start: 07-11-2023 End: 07-11-2023 Patient encounter procedure Komal Booth MD Work Phone: OB/Gynecology Comment on above: Abnormal uterine ble eding (AUB) (Primary Dx) Start: 07-11-2023 End: 07-11-2023 Subsequent hospital visit by physician [facility] Work Phone: Radiology Comment on above: Abnormal uterine ble eding (AUB) [N93.9] Start: 07-09-2023 End: 07-09-2023 Patient encounter procedure Constanza Reilly MD Work Phone: Endocrinology [facility] Comment on above: PCOS (polycystic ova mary syndrome) (Primary Dx); Class 3 obesity (HCC); History of bariatric surgery Start: 06-20-2023 End: 06-20-2023 Patient encounter procedure Komal Booth MD Work Phone: OB/Gynecology Comment on above: Encounter for gyneco logical examination with abnormal finding (Primary Dx); Abnormal uterine bleeding (AUB); Vaginal lesion Start: 06-20-2023 End: 06-20-2023 Patient encounter status Komal Booth MD Work Phone: [facility] Work Phone: Start: 06-11-2023 End: 06-11-2023 Patient encounter procedure Farheen Almendarez APRN.FRUIT HARVESTER Work Phone: [facility] Comment on above: Viral illness (Prima ry Dx); Acute cough Start: 06-04-2023 End: 06-04-2023 Patient encounter procedure Gela Groves MD Work Phone: OB/Gynecology Comment on above: Mass overlapping mul tiple quadrants of right breast (Primary Dx) Start: 05-08-2023 End: 05-08-2023 Patient encounter procedure Farheen Almendarez APRN.FRUIT HARVESTER Work Phone: [facility] Comment on above: Acute cough (Primary Dx); Upper respiratory tract infection, unspecified type Start: 05-01-2023 End: 05-01-2023 ambulatory Denise Sepideh Gum Cook Work Phone: Endocrinology Comment on above: Class 3 obesity (HCC ) (Primary Dx) Start: 05-01-2023 End: 05-01-2023 Telemedicine consultation with patient Denise Bunn Gum Cook Work Phone: [facility] Start: 03-06-2023 Telephone encounter Farheen Almendarez APRN.FRUIT HARVESTER Work Phone: [facility] Comment on above: Results (Labs) Start: 01-30-2023 Refill Farheen alonso APRN.FRUIT HARVESTER Work Phone: [facility] Comment on above: Refill Request Start: 01-10-2023 End: 01-10-2023 ambulatory Denise Sepideh Gum Cook Work Phone: Endocrinology Comment on above: Class 3 obesity (HCC ) (Primary Dx) Start: 01-10-2023 End: 01-10-2023 Telemedicine consultation with patient Denise Bunn Gum Cook Work Phone: [facility] Start: 01-02-2023 Telephone encounter Farheen Almendarez APRN.FRUIT HARVESTER Work Phone: [facility] Comment on above: Results Start: 01-02-2023 End: 01-02-2023 Admission to same day surgery center Viviane Interiano MD Work Phone: Endocrinology Comment on above: Class 3 obesity (HCC ) (Primary Dx); History of bariatric surgery; Insulin resistance Start: 01-02-2023 End: 01-02-2023 Telemedicine consultation with patient Viviane Interiano MD Work Phone: [facility] Start: 12-06-2022 Telephone encounter Farheen Almendarez APRN.FRUIT HARVESTER Work Phone: [facility] Comment on above: Orders Start: 11-20-2022 ambulatory Viviane Interiano MD Work Phone: Endocrinology Comment on above: Glucose/A1C Check Start: 11-06-2022 End: 11-06-2022 Nursing evaluation of patient and report Nurse Kendra [facility] Work Phone: [facility] Comment on above: Primary hypertension (Primary Dx) Start: 09-20-2022 End: 09-20-2022 ambulatory Denise Bunn Gum Cook Work Phone: Endocrinology Comment on above: Class 3 obesity (HCC ) (Primary Dx) Start: 09-20-2022 End: 09-20-2022 Telemedicine consultation with patient Denise Bunn Gum Cook Work Phone: [facility] Start: 09-18-2022 End: 09-18-2022 Admission to same day surgery center Viviane Interiano MD Work Phone: Endocrinology Comment on above: Class 3 obesity (HCC ) (Primary Dx); BMI 50.0-59.9, adult (HCC); PCOS (polycystic ovarian syndrome); Insulin resistance; History of bariatric surgery Start: 09-18-2022 End: 09-18-2022 Telemedicine consultation with patient Viviane Interiano MD Work Phone: [facility] Start: 08-29-2022 ambulatory Candi Sahu MD Work Phone: Endocrinology Comment on above: Labs Start: 08-29-2022 End: 08-29-2022 Patient encounter procedure Farheen Almendarez APRN.FRUIT HARVESTER Work Phone: [facility] Comment on above: Primary hypertension (Primary Dx); Fatty (change of) liver, not elsewhere classified; Hypothyroidism, acquired Start: 07-09-2022 Refill Farheen alonso APRN.FRUIT HARVESTER Work Phone: [facility] Comment on above: Refill Request Start: 07-03-2022 End: 07-03-2022 Nursing evaluation of patient and report Nurse Kendra Green [facility] Work Phone: [facility] Comment on above: Primary hypertension (Primary Dx) Start: 05-31-2022 End: 05-31-2022 ambulatory Denisenaveed Bunn Gum Cook Work Phone: Endocrinology Comment on above: Obesity, Class I, BM I 30-34.9 (Primary Dx) Start: 05-31-2022 End: 05-31-2022 Telemedicine consultation with patient Denise Bunn Gum Cook Work Phone: [facility] Start: 05-30-2022 Telephone encounter Farheen Almendarez APRN.CNP Work Phone: [facility] Comment on above: Results Start: 05-29-2022 End: 05-29-2022 Patient encounter procedure Farheen Almendarez APRN.CNP Work Phone: [facility] Comment on above: Primary hypertension (Primary Dx); Depression screening Start: 04-25-2022 Orders Only Candi Sahu MD Work Phone: Endocrinology Comment on above: Hypothyroidism, acqu ired (Primary Dx) Test results Start: 04-17-2022 Telephone encounter Viviane Interiano MD Work Phone: Endocrinology Comment on above: Medication Problem ( CONTRAVE 8-9mg ER tablet, PA requested) Start: 04-14-2022 End: 04-14-2022 Admission to same day surgery center Herlinda Ortiz RD Work Phone: [facility] [place] Comment on above: Class 3 severe obesi ty due to excess calories with serious comorbidity and body mass index (BMI) of 50.0 to 59.9 in adult (HCC) (Primary Dx); PCOS (polycystic ovarian syndrome); Hypothyroidism, acquired; Obesity, Class I, BMI 30-34.9; History of bariatric surgery; Insulin resistance; Fatty (change of) liver, not elsewhere classified Start: 04-14-2022 End: 04-14-2022 Telemedicine consultation with patient Herlinda Ortiz RD Work Phone: [facility] Start: 04-12-2022 ambulatory Viviane Interiano MD Work Phone: Endocrinology Comment on above: Weightloss Medicatio n Start: 04-10-2022 End: 04-10-2022 ambulatory Viviane Interiano MD Work Phone: Endocrinology Comment on above: Class 3 obesity (HCC ) (Primary Dx); BMI 50.0-59.9, adult (HCC); PCOS (polycystic ovarian syndrome); Insulin resistance Start: 04-10-2022 End: 04-10-2022 Telemedicine consultation with patient [facility]iane Interiano MD [facility] Start: 04-05-2022 Telephone encounter Farheen Almendarez APRN.FRUIT HARVESTER Work Phone: [facility] Comment on above: Lab Orders Start: 04-03-2022 End: 04-03-2022 Nursing evaluation of patient and report Nurse [facility] Work Phone: [facility] Comment on above: Primary hypertension (Primary Dx) Start: 03-22-2022 Refill Farheen alonso APRN.FRUIT HARVESTER Work Phone: [facility] Comment on above: Refill Request Start: 02-20-2022 End: 02-20-2022 ambulatory Pop Mcfarlane Gum [facility] Start: 02-13-2022 E-mail encounter selam m caregiver Viviane Interiano MD Work Phone: [facility] Start: 02-13-2022 Follow-up encounter Viviane Interiano MD Work Phone: Endocrinology Comment on above: follow up Start: 02-07-2022 End: 02-07-2022 Patient encounter procedure Candi Sahu MD Work Phone: Endocrinology Comment on above: Insulin resistance; PCOS (polycystic ovarian syndrome); Hypothyroidism, acquired; Elevated blood pressure reading without diagnosis of hypertension Start: 02-06-2022 End: 02-06-2022 Patient encounter procedure Farheen Almendarez APRN.CNP Work Phone: [facility] Comment on above: KELLEY (generalized anx iety disorder) (Primary Dx); Insulin resistance; PCOS (polycystic ovarian syndrome); Hypothyroidism, acquired; Elevated blood pressure reading without diagnosis of hypertension; Acute maxillary sinusitis, recurrence not specified Start: 01-31-2022 End: 01-31-2022 Patient encounter procedure Kacie Bird APRN.FRUIT HARVESTER Work Phone: [facility] Comment on above: Flu-like symptoms (P rimary Dx); Viral URI Start: 11-25-2021 Telephone encounter Farheen Almendarez APRN.CNP Work Phone: [facility] Comment on above: Results Start: 11-22-2021 End: 11-22-2021 Subsequent hospital visit by physician [facility] Comment on above: Coccyx pain [M53.3] Start: 11-22-2021 End: 11-22-2021 Patient encounter procedure Farheen Almendarez APRN.FRUIT HARVESTER Work Phone: [facility] Comment on above: Chronic ROYER (middle ear effusion), left (Primary Dx); Hearing loss of left ear, unspecified hearing loss type; Coccyx pain Start: 11-02-2021 End: 11-02-2021 Patient encounter procedure Aye Guevara APRN.FRUIT HARVESTER Work Phone: [facility] Comment on above: Upper respiratory tr act infection, unspecified type (Primary Dx) Start: 11-02-2021 ambulatory Aye cao APRN.GRISELDA Work Phone: [facility] Comment on above: Covid Test Start: 10-04-2021 End: 10-04-2021 Patient encounter procedure Farheen Almendarez APRN.FRUIT HARVESTER Work Phone: [facility] Comment on above: Epigastric pain (Taniya Dx); Nausea; Acute pain of right knee; Effusion of right knee; Anxiety Start: 09-21-2021 Refill Farheen alonso APRN.CNP Work Phone: [facility] Comment on above: Refill Request Start: 09-05-2021 Telephone encounter Farheen Almendarez APRN.FRUIT HARVESTER Work Phone: [facility] Comment on above: Results Start: 08-31-2021 End: 08-31-2021 Subsequent hospital visit by physician [facility] Comment on above: Acute pain of right knee [M25.561] Start: 08-31-2021 End: 08-31-2021 Patient encounter procedure Farheen Almendarez APRN.FRUIT HARVESTER Work Phone: [facility] Comment on above: Acute pain of right knee (Primary Dx) Start: 08-04-2021 Telephone encounter Farheen Almendarez APRN.FRUIT HARVESTER Work Phone: [facility] Comment on above: Results Start: 08-03-2021 End: 08-03-2021 Patient encounter procedure Farheen Almendarez APRN.FRUIT HARVESTER Work Phone: [facility] Comment on above: Acute otitis media, left (Primary Dx); Upper respiratory tract infection, unspecified type; Iron deficiency anemia, unspecified iron deficiency anemia type; Acquired hypothyroidism Start: 06-30-2021 End: 06-30-2021 Patient encounter procedure Aye Guevara APRN.FRUIT HARVESTER Work Phone: [facility] Comment on above: Acute otitis media, unspecified otitis media type (Primary Dx); Acute non-recurrent maxillary sinusitis Start: 05-17-2020 End: 05-23-2021 Patient requested procedure Komal Booth MD Work Phone: [facility] Start: 12-04-2017 Patient encounter UNKNOWN PROVIDER F acility:[facility] Start: 06-27-2017 Patient encounter UNKNOWN PROVIDER F acility:[facility] Start: 03-29-2017 Patient encounter Gladys Garnica ility:[facility] Start: 03-08-2017 Patient encounter Mujalex Katz Fac ility:[facility] Start: 01-11-2017 Patient encounter Gladys Garnica ility:[facility] Procedures Date Procedure Procedure Detail Performing Clinician Start: 11-19-2024 Parathyroid imaging w/tomographic spect & ct Gonzalo Hernadez MD Work Phone: Start: 11-10-2024 Us soft tissue head & neck real time imge docm Gonzalo Henradez MD Work Phone: Start: 09-23-2024 End: 09-23-2024 Us breast uni real time with image limited Koaml Booth MD Work Phone: Start: 09-23-2024 Digital breast tomosynthesis unilateral Gela Claudia Groves MD Work Phone: Start: 08-19-2024 Mri spinal canal lum bar w/o contrast material Farheen Almendarez WATCH REPAIR TECHNICIAN.FRUIT HARVESTER Work Phone: Start: 05-06-2024 SARS-CoV-2 (COVID-19 ) Ag [Presence] in Respiratory specimen by Rapid immunoassay Royce Landers MD Work Phone: Start: 05-06-2024 Iaadiadoo influenza Jose Landers MD Work Phone: Start: 03-10-2024 STREP A MOLECULAR (POC) Chrissie Hung WATCH REPAIR TECHNICIAN.FRUIT HARVESTER Work Phone: Start: 08-01-2023 UA DIP,URINE HCG (POC) Komal Booth MD Work Phone: Start: 07-28-2023 STREP A MOLECULAR (POC) Tia Valencia PA Work Phone: Start: 07-11-2023 UA DIP,URINE HCG (POC) Komal Booth MD Work Phone: Start: 07-11-2023 Us transvaginal Komal Booth MD Work Phone: Start: 01-31-2022 COVID WITH FLUA+B, ROUTINE Kacie Bird WATCH REPAIR TECHNICIAN.FRUIT HARVESTER Work Phone: Start: 08-31-2021 Radiologic exam knee complete 4/more views Farheen Almendarez WATCH REPAIR TECHNICIAN.FRUIT HARVESTER Work Phone: Start: 02-08-2021 Adult depression scr eening assessment Aye Guevara APRN.GRISELDA Work Phone: Plan of Treatment Date Care Activity Detail Author Start: 10-07-2035 Zoster Vaccines (1 of 2) Zoster Vaccines (1 of 2) [facility] Start: 03-16-2031 DTaP/Tdap/Td Vaccines (3 - Td or Tdap) DTaP/Tdap/Td Vaccines (3 - Td or Tdap) [facility] Start: 03-16-2031 Urine microalbumin profile [facility] Start: 08-21-2029 Screening for malignant neoplasm of cervix Cervical Cancer Screening [facility] Start: 09-02-2025 Annual PCP Team Chronic Disease Visit Annual PCP Team Chronic Disease Visit [facility] Start: 09-02-2025 Hepatitis B Vaccine (1 of 3 - 19+ 3-dose series) Hepatitis B Vaccine (1 of 3 - 19+ 3-dose series) [facility] Comment on above: Postponed from 2004 (Declined at t his time) Start: 09-02-2025 zzBP Controlled (<130/80) (Retired) zzBP Controlled (<130/80) (Retired) [facility] Start: 08-21-2025 End: 08-21-2025 Patient encounter procedure 08/21/2025 2:45 PM EDT Office Visit OB/Gynecology [address] [place], [place] [id number] Mercy Parham APRN.FRUIT HARVESTER [address] [place] [address] annual OB/Gynecology Comment on above: annual Start: 08-21-2025 BP Controlled (<130/80) BP Controlled (<130/80) [facility] inic Start: 07-28-2025 Annual PCP Team Chronic Disease Visit Annual PCP Team Chronic Disease Visit [facility] Start: 07-08-2025 End: 07-08-2025 Patient encounter procedure 07/08/2025 10:20 AM EDT Office Visit Endocrinology [address] [address] Candi Sahu MD [address] [place] [address] Parathyroid disfunction Endocrinology Comment on above: Parathyroid disfunction Start: 06-17-2025 Annual PCP Team Chronic Disease Visit Annual PCP Team Chronic Disease Visit [facility] Start: 06-17-2025 BP Controlled (<130/80) BP Controlled (<130/80) [facility] Start: 06-07-2025 HPV TESTING HPV TESTING [facility] Start: 06-07-2025 PAP TESTING PAP TESTING [facility] Start: 06-07-2025 Screening for malignant neoplasm of cervix [facility] Start: 04-07-2025 Annual PCP Team Chronic Disease Visit Annual PCP Team Chronic Disease Visit [facility] Start: 04-07-2025 Anxiety Screening Anxiety Screening [facility] Comment on above: Postponed from 10/07/2003 (Declined at t his time) Start: 04-07-2025 BP Controlled (<130/80) BP Controlled (<130/80) [facility] Start: 04-07-2025 Covid-19 Vaccine () Covid-19 Vaccine () [facility] Comment on above: Postponed from 11/25/2023 (Declined at t his time) Start: 04-07-2025 Depression Screening Depression Screening [facility] Comment on above: Postponed from 10/07/2003 (Postponed To Appropriate Date) Start: 03-14-2025 BP Controlled (<130/80) BP Controlled (<130/80) [facility] Start: 03-10-2025 BP Controlled (<130/80) BP Controlled (<130/80) [facility] Start: 02-07-2025 Annual PCP Team Chronic Disease Visit Annual PCP Team Chronic Disease Visit [facility] Start: 02-07-2025 BP Controlled (<130/80) BP Controlled (<130/80) [facility] Start: 01-08-2025 End: 01-08-2025 Patient encounter procedure 01/08/2025 10:50 AM EDT Office Visit OB/Gynecology [address] [place] [address] Komal Booth MD [address] [place] [address] Post op 6 week OB/Gynecology Comment on above: Post op 6 week Start: 12-22-2024 End: 12-22-2024 Patient encounter procedure 12/22/2024 10:20 AM EDT Office Visit [facility] [address] [place] [address] Farheen Almendarez, VÍCTOR.FRUIT HARVESTER [address] [place] [address] fatigue [facility] Comment on above: fatigue Start: 12-05-2024 End: 12-05-2024 Patient encounter procedure 12/05/2024 10:50 AM EDT Office Visit OB/Gynecology [address] [place] [address] Komal Booth MD [address] [place] [place] [address] 1 week post-op OB/Gynecology Comment on above: 1 week post-op Start: 12-04-2024 End: 12-04-2024 Patient encounter procedure 12/04/2024 2:30 PM EDT Office Visit Pain Management [address] [address] Leti Griffin, WATCH REPAIR TECHNICIAN.FRUIT HARVESTER [address] [place] [address] Follow up-injection Pain Management Comment on above: Follow up-injection Start: 11-24-2024 Influenza vaccination [facility] Start: 11-19-2024 End: 11-19-2024 Patient encounter procedure [facility] Comment on above: fatigue Dx: Hyperparathyroid ism ([facility]) [E21.3] Start: 11-18-2024 End: 11-18-2024 Admission to same day surgery center [facility] Surgery Comment on above: BLOCK JOINT FACET LUMBAR W/ C-ARM BILATE RAL Start: 11-18-2024 End: 11-18-2024 Njx dx/ther agt pvrt facet jt lmbr/sac 1 level ME OR Start: 11-18-2024 Subsequent hospital visit by physician [facility] Surgery Comment on above: Lumbar facet joint syndrome [M47.816] Start: 11-13-2024 End: 11-13-2024 Patient encounter procedure 11/13/2024 9:20 AM EDT Office Visit OB/Gynecology [address] [place] [address] Komal Booth MD [address] [place] [address] surgery 11/28 OB/Gynecology Comment on above: surgery 11/28 Start: 11-10-2024 End: 11-10-2024 Patient encounter procedure Endocrine Surgery Comment on above: Hyperparathyroidism INTAKE STARTED: Hype rparathyroidism Start: 10-20-2024 End: 10-20-2024 Patient encounter procedure 10/20/2024 2:30 PM EDT Office Visit Pain Management [address] [address] Guero Guillen MD [address] [facility] [place] [address] Degeneration of intervertebral disc of lumbar region Pain Management Comment on above: Degeneration of intervertebral disc of l umbar region Start: 10-07-2024 End: 10-07-2024 Patient encounter procedure 10/07/2024 3:00 PM EDT Office Visit Endocrinology [address] [address] Candi Sahu MD [address] [place] [address] elevelated pth levels related to thyroid Endocrinology Comment on above: elevelated pth levels related to thyroid Start: 10-07-2024 End: 01-06-2025 Albumin [Mass/volume] in Serum or Plasma ALBUMIN Lab Routine Hyperparathyroidism (HCC) Expected: 10/07/2024, Expires: 01/06/2025 [facility] Work Phone: Comment on above: Expected: 10/07/2024, Expires: Start: 10-07-2024 End: 01-06-2025 Calcium [Mass/volume] in Serum or Plasma CALCIUM, TOTAL Lab Routine Hyperparathyroidism (HCC) Expected: 10/07/2024, Expires: 01/06/2025 [facility] Comment on above: Expected: 10/07/2024, Expires: Start: 10-07-2024 End: 01-06-2025 CALCIUM, 24 HR URINE CALCIUM, 24 HR URINE Lab Routine Hyperparathyroidism (HCC) Expected: 10/07/2024, Expires: 01/06/2025 [facility] Comment on above: Expected: 10/07/2024, Expires: Start: 10-07-2024 End: 01-06-2025 Calcium.ionized [Moles/volume] in Blood CALCIUM, IONIZED Lab Routine Hyperparathyroidism (HCC) Expected: 10/07/2024, Expires: 01/06/2025 [facility] Comment on above: Expected: 10/07/2024, Expires: Start: 10-07-2024 End: 01-06-2025 Creatinine and Glomerular filtration rate.predicted panel - Serum, Plasma or Blood [facility] Comment on above: Expected: 10/07/2024, Expires: Start: 10-07-2024 End: 01-06-2025 CREATININE, 24 HOUR URINE CREATININE, 24 HOUR URINE Lab Routine Hyperparathyroidism (HCC) Expected: 10/07/2024, Expires: 01/06/2025 [facility] Comment on above: Expected: 10/07/2024, Expires: Start: 10-07-2024 End: 01-06-2025 Parathyrin.intact [Mass/volume] in Serum or Plasma PTH INTACT Lab Routine Hyperparathyroidism (HCC) Expected: 10/07/2024, Expires: 01/06/2025 [facility] Comment on above: Expected: 10/07/2024, Expires: Start: 10-02-2024 Annual PCP Team Chronic Disease Visit Annual PCP Team Chronic Disease Visit [facility] Start: 10-02-2024 BP Controlled (<130/80) BP Controlled (<130/80) [facility] in Start: 09-23-2024 End: 09-23-2024 ambulatory 09/23/2024 11:00 AM EDT Procedure OB/Gynecology [address] [place] [address] Remote, [employer] [address] [place] [address] Dysmenorrhea [N94.6] OB/Gynecology Comment on above: Dysmenorrhea [N94.6] Start: 09-23-2024 End: 09-23-2024 Patient encounter procedure Mammogram Comment on above: RADIO ULTRA C WSTR MOB did phone note for L T dx order Comp- LT tenderness/discharge Ask pt if only discharge on LT breast priors 06/20/23 Comp- LT tenderness/ discharge Ask pt if only discharge on LT breast priors 06/20/23 Start: 09-22-2024 Influenza [facility] Comment on above: Postponed from 11/25/2023 (Declined at t his time) Start: 09-22-2024 End: 09-22-2024 Patient encounter procedure [facility] Comment on above: XR LUMBAR LIMITED 2V FLEX/EXT Degeneration of inte rvertebral disc of lumbar region with discogenic back pain XR LUMBAR FLEX/EXT Start: 09-02-2024 End: 09-02-2024 Patient encounter procedure 09/02/2024 10:20 AM EDT Office Visit [facility] [address] [place] [address] Farheen Almendarez APRN.FRUIT HARVESTER [address] [place] [address] Abnormal labs + other concerning issues [facility] Comment on above: Abnormal labs + other concerning issues Start: 08-28-2024 Annual PCP Team Chronic Disease Visit Annual PCP Team Chronic Disease Visit [facility] Start: 08-28-2024 BP Controlled (<130/80) BP Controlled (<130/80) [facility] Start: 08-21-2024 End: 08-21-2024 Patient encounter procedure 08/21/2024 10:15 AM EDT Office Visit OB/Gynecology [address] [place] [address] Mercy Parham APRN.FRUIT HARVESTER [address] [place] [address] Annual Exam OB/Gynecology Comment on above: Annual Exam Start: 08-19-2024 End: 08-19-2024 Patient encounter procedure 08/19/2024 1:30 PM EDT Appointment Radiology [address] [place] [address] Dx: Chronic midline low back pain without sciatica [M54.50, G89.29]; Spondylosis without myelopathy or radiculopathy, 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] Radiology Comment on above: Dx: Chronic midline low back pain withou t sciatica [M54.50, G89.29]; Spondylosis without myelopathy or radiculopathy, 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] Start: 08-11-2024 End: 08-11-2024 Patient encounter procedure 08/11/2024 11:30 AM EDT Office Visit OB/Gynecology [address] [place] [address] Keysha Pitts APRN.FRUIT HARVESTER [address] [place] [address] annual OB/Gynecology Comment on above: annual Start: 08-05-2024 Annual PCP Team Chronic Disease Visit Annual PCP Team Chronic Disease Visit [facility] Start: 08-05-2024 BP Controlled (<130/80) BP Controlled (<130/80) [facility] in Start: 08-05-2024 End: 08-05-2025 US Pelvis PELVIC US [facility] Anc Imaging Routine Dysmenorrhea Menorrhagia with regular cycle Expected: 08/05/2024, Expires: 08/05/2025 [facility] Work Phone: Comment on above: Expected: 08/05/2024, Expires: Start: 07-31-2024 End: 07-31-2024 ambulatory 07/31/2024 1:30 PM EDT OT/PT/Speech Visit [facility] [address] [place] [address] Salvdaor Zhou, PT [address] [place], [place] [id number] Lower back pain + numbness [facility] Comment on above: Lower back pain + numbness Start: 07-30-2024 End: 07-30-2024 Patient encounter procedure 07/30/2024 9:15 AM EDT Office Visit OB/Gynecology [address] [place], [place] [id number] Mercy Parham APRN.FRUIT HARVESTER [address] [place] [address] Nipple pain/discharge OB/Gynecology Comment on above: Nipple pain/discharge Start: 07-28-2024 End: 07-28-2024 ambulatory 07/28/2024 5:00 PM EDT [facility] [address] [place] [address] Farheen Almendarez APRN.FRUIT HARVESTER [address] [place] [address] 4-6 WK F/U Back Pain (ok for virtual) [facility] Comment on above: 4-6 WK F/U Back Pain (ok for virtual) Start: 07-27-2024 BP Controlled (<130/80) BP Controlled (<130/80) [facility] Start: 07-21-2024 End: 07-21-2024 ambulatory 07/21/2024 1:30 PM EDT OT/PT/Speech Visit [facility] [address] [place], [place] [id number] Salvador Zhou, PT [address] [place], [place] [id number] Lower back pain + numbness [facility] Comment on above: Lower back pain + numbness Start: 07-14-2024 End: 07-14-2024 ambulatory 07/14/2024 1:30 PM EDT OT/PT/Speech Visit [facility] [address] [place] [address] Salvador Zhou, PT [address] [place], [place] [id number] Lower back pain + numbness [facility] Comment on above: Lower back pain + numbness Start: 07-07-2024 End: 07-07-2024 ambulatory 07/07/2024 12:45 PM EDT OT/PT/Speech Visit [facility] [address] [place] [address] Salvador Zhou, PT [address] [place], [place] [id number] Lower back pain + numbness [facility] Comment on above: Lower back pain + numbness Start: 07-01-2024 End: 07-01-2024 ambulatory 07/01/2024 10:00 AM EDT OT/PT/Speech Visit [facility] [address] [place] [address] Salvador Zhou, PT [address] [place], [place] [id number] Lower back pain + numbness [facility] Comment on above: Lower back pain + numbness Start: 06-17-2024 End: 06-17-2024 Patient encounter procedure 06/17/2024 10:40 AM EDT Office Visit [facility] [address] [place] [address] Farheen Almendarez APRN.FRUIT HARVESTER [address] [place], [place] [id number] 6-8 WK F/U Back pain [facility] Comment on above: 6-8 WK F/U Back pain Start: 06-10-2024 Annual PCP Team Chronic Disease Visit Annual PCP Team Chronic Disease Visit [facility] Start: 06-10-2024 BP Controlled (<130/80) BP Controlled (<130/80) [facility] Start: 06-03-2024 BP Controlled (<130/80) BP Controlled (<130/80) [facility] Start: 05-28-2024 End: 05-28-2024 Patient encounter procedure 05/28/2024 4:40 PM EST Office Visit Endocrinology [address] [address] Candi Sahu MD [address] [place] [address] elevelated pth levels related to thyroid Endocrinology Comment on above: elevelated pth levels related to thyroid Start: 05-24-2024 End: 08-23-2024 25-hydroxyvitamin D3 [Mass/volume] in Serum or Plasma VITAMIN D 25 HYDROXY Lab Routine Hyperparathyroidism (HCC) Expected: 05/24/2024 (Approximate), Expires: 08/23/2024 [facility] Comment on above: Expected: 05/24/2024 (Approximate), Expi res: 08/23/2024 Start: 05-24-2024 End: 08-23-2024 Albumin [Mass/volume] in Serum or Plasma ALBUMIN Lab Routine Hyperparathyroidism (HCC) Expected: 05/24/2024 (Approximate), Expires: 08/23/2024 [facility] Comment on above: Expected: 05/24/2024 (Approximate), Expi res: 08/23/2024 Start: 05-24-2024 End: 08-23-2024 Calcium [Mass/volume] in Serum or Plasma CALCIUM, TOTAL Lab Routine Hyperparathyroidism (HCC) Expected: 05/24/2024 (Approximate), Expires: 08/23/2024 [facility] Comment on above: Expected: 05/24/2024 (Approximate), Expi res: 08/23/2024 Start: 05-24-2024 End: 08-23-2024 Calcium.ionized [Moles/volume] in Blood CALCIUM, IONIZED Lab Routine Hyperparathyroidism (HCC) Expected: 05/24/2024 (Approximate), Expires: 08/23/2024 [facility] Comment on above: Expected: 05/24/2024 (Approximate), Expi res: 08/23/2024 Start: 05-24-2024 End: 08-23-2024 Creatinine and Glomerular filtration rate.predicted panel - Serum, Plasma or Blood GFR ESTIMATED Lab Routine Hyperparathyroidism (HCC) Expected: 05/24/2024 (Approximate), Expires: 08/23/2024 [facility] Comment on above: Expected: 05/24/2024 (Approximate), Expi res: 08/23/2024 Start: 05-24-2024 End: 08-23-2024 CREATININE BLD CREATININE BLD Lab Routine Hyperparathyroidism (HCC) Expected: 05/24/2024 (Approximate), Expires: 08/23/2024 [facility] Work Phone: Comment on above: Expected: 05/24/2024 (Approximate), Expi res: 08/23/2024 Start: 05-24-2024 End: 08-23-2024 Parathyrin.intact [Mass/volume] in Serum or Plasma PTH INTACT Lab Routine Hyperparathyroidism (HCC) Expected: 05/24/2024 (Approximate), Expires: 08/23/2024 [facility] Comment on above: Expected: 05/24/2024 (Approximate), Expi res: 08/23/2024 Start: 05-24-2024 End: 08-23-2024 Phosphate [Mass/volume] in Serum or Plasma PHOSPHORUS INORGANIC Lab Routine Hyperparathyroidism (HCC) Expected: 05/24/2024 (Approximate), Expires: 08/23/2024 [facility] Comment on above: Expected: 05/24/2024 (Approximate), Expi res: 08/23/2024 Start: 05-20-2024 End: 05-20-2024 Patient encounter procedure 05/20/2024 1:00 PM EST Office Visit [facility] [address] [place] [address] Farheen Alemndarez, WATCH REPAIR TECHNICIAN.FRUIT HARVESTER [address] [place] [address] 6-8 WK F/U Back pain [facility] Comment on above: 6-8 WK F/U Back pain Start: 05-08-2024 Annual PCP Team Chronic Disease Visit Annual PCP Team Chronic Disease Visit [facility] Start: 05-08-2024 BP Controlled (<130/80) BP Controlled (<130/80) [facility] Start: 04-07-2024 End: 11-03-2024 CBC panel - Blood by Automated count COMPLETE BLOOD COUNT Lab Routine Hypothyroidism, acquired Class 3 severe obesity with serious comorbidity and body mass index (BMI) of 50.0 to 59.9 in adult, unspecified obesity type (HCC) Expected: 04/07/2024, Expires: 11/03/2024 [facility] Comment on above: Expected: 04/07/2024, Expires: Start: 04-07-2024 End: 11-03-2024 Comprehensive metabolic 2000 panel - Serum or Plasma COMPREHENSIVE METABOLIC PANEL Lab Routine Hypothyroidism, acquired Class 3 severe obesity with serious comorbidity and body mass index (BMI) of 50.0 to 59.9 in adult, unspecified obesity type (HCC) Expected: 04/07/2024, Expires: 11/03/2024 [facility] Comment on above: Expected: 04/07/2024, Expires: Start: 04-07-2024 Depression Screening Depression Screening [facility] Comment on above: Postponed from 10/07/2003 (Declined at t his time) Start: 04-07-2024 End: 11-03-2024 Hemoglobin A1c in Blood HEMOGLOBIN A1C Lab Routine Hypothyroidism, acquired Class 3 severe obesity with serious comorbidity and body mass index (BMI) of 50.0 to 59.9 in adult, unspecified obesity type (HCC) Expected: 04/07/2024, Expires: 11/03/2024 [facility] Comment on above: Expected: 04/07/2024, Expires: Start: 04-07-2024 End: 11-03-2024 Lipid 1996 panel - Serum or Plasma LIPID PANEL BASIC Lab Routine Hypothyroidism, acquired Class 3 severe obesity with serious comorbidity and body mass index (BMI) of 50.0 to 59.9 in adult, unspecified obesity type (HCC) Expected: 04/07/2024, Expires: 11/03/2024 [facility] Comment on above: Expected: 04/07/2024, Expires: Start: 04-07-2024 End: 11-03-2024 Thyrotropin [Units/volume] in Serum or Plasma THYROID STIMULATING HORMONE Lab Routine Hypothyroidism, acquired Class 3 severe obesity with serious comorbidity and body mass index (BMI) of 50.0 to 59.9 in adult, unspecified obesity type (HCC) Expected: 04/07/2024, Expires: 11/03/2024 [facility] Comment on above: Expected: 04/07/2024, Expires: Start: 04-07-2024 End: 04-07-2024 Patient encounter procedure 04/07/2024 9:20 AM EST Office Visit [facility] [address] [place] [address] Farheen Almendarez WATCH REPAIR TECHNICIAN.FRUIT HARVESTER [address] [place] [address] well adult exam [facility] Comment on above: well adult exam Start: 04-03-2024 End: 04-03-2024 Patient encounter procedure 04/03/2024 10:45 AM EST Office Visit OB/Gynecology [address] [place] [address] Mercy Parham APRN.FRUIT HARVESTER [address] [place] [address] Painful lump on clitoris OB/Gynecology Comment on above: Painful lump on clitoris Start: 03-28-2024 End: 03-28-2024 Patient encounter procedure 03/28/2024 10:40 AM EST Office Visit Endocrinology [address] [place] [address] Sarahy Mayers MD [address] [place] [address] New- parathyroid Endocrinology Comment on above: New- parathyroid Start: 03-25-2024 Behavioral Health Screening Behavioral Health Screening [facility] Comment on above: Postponed from 03/26/2023 (Declined at t his time) Start: 03-25-2024 Depression Assessment Depression Assessment [facility] Comment on above: Postponed from 03/26/2023 (Declined at t his time) Start: 03-11-2024 End: 03-11-2024 Patient encounter procedure 03/11/2024 4:40 PM EST Office Visit Endocrinology [address] [address] Candi Sahu MD [address] [place] [address] elevelated pth levels related to thyroid Endocrinology Comment on above: elevelated pth levels related to thyroid Start: 02-29-2024 Annual PCP Team Chronic Disease Visit Annual PCP Team Chronic Disease Visit [facility] Start: 02-29-2024 BP Controlled (<130/80) BP Controlled (<130/80) [facility] in Start: 02-29-2024 Covid-19 Vaccine () Covid-19 Vaccine () [facility] Comment on above: Postponed from 11/24/2022 (Declined at t his time) Start: 02-29-2024 [facility] Comment on above: Post[facility] from 10/07/1991 (Declined at t his time) Start: 12-28-2023 Annual PCP Team Chronic Disease Visit Annual PCP Team Chronic Disease Visit [facility] Start: 12-28-2023 BP Controlled (<130/80) BP Controlled (<130/80) [facility] Start: 11-25-2023 COVID-19 Vaccine ( season) COVID-19 Vaccine ( season) [facility] Start: 11-25-2023 Covid-19 Vaccine ( season) Covid-19 Vaccine ( season) [facility] Start: 11-25-2023 Covid-19 Vaccine ( season) Covid-19 Vaccine () [facility] Start: 11-25-2023 Influenza vaccination [facility] Start: 11-07-2023 BP CONTROLLED (<130/80) BP CONTROLLED (<130/80) [facility] in Start: 10-24-2023 End: 10-24-2023 Nursing evaluation of patient and report 10/24/2023 9:20 AM EDT Nurse Visit [facility] [address] [place] [address] BP check [facility] Comment on above: BP check Start: 10-03-2023 End: 10-03-2023 Patient encounter procedure 10/03/2023 10:40 AM EDT Office Visit [facility] [address] [place] [address] Farheen Almendarez, WATCH REPAIR TECHNICIAN.FRUIT HARVESTER [address] [place] [address] f/u blood pressure [facility] Comment on above: f/u blood pressure Start: 09-23-2023 Influenza vaccination Influenza Vaccine (#1) [facility] Comment on above: Postponed from 11/24/2022 (Declined at t his time) Start: 08-30-2023 ANNUAL PCP TEAM CHRONIC DISEASE VISIT ANNUAL PCP TEAM CHRONIC DISEASE VISIT [facility] Start: 08-30-2023 BP CONTROLLED (<130/80) BP CONTROLLED (<130/80) [facility] Start: 08-30-2023 COVID-19 VACCINE (3 - Booster for Pfizer series) COVID-19 VACCINE (3 - Booster for Pfizer series) [facility] Comment on above: Postponed from 10/22/2020 (Declined at t his time) Start: 08-30-2023 COVID-19 VACCINE (3 - Booster) COVID-19 VACCINE (3 - Booster) [facility] Comment on above: Postponed from 10/22/2020 (Declined at t his time) Start: 08-30-2023 COVID-19 VACCINE (4 - Mixed Product series) COVID-19 VACCINE (4 - Mixed Product series) [facility] Comment on above: Postponed from 10/22/2020 (Declined at t his time) Start: 08-29-2023 End: 08-29-2023 Patient encounter procedure 08/29/2023 9:00 AM EDT Office Visit [facility] [address] [place] [address] Farheen Almendarez, WATCH REPAIR TECHNICIAN.FRUIT HARVESTER [address] [place] [address] 6 MTH F/U HTN [facility] Comment on above: 6 MTH F/U HTN Start: 08-21-2023 End: 08-21-2023 Follow-up encounter 08/21/2023 11:40 AM EDT [facility] Endocrinology [facility] [address] [place] [address] [place] [address] [place] [address] 6 week follow up Endocrinology [facility] Comment on above: 6 week follow up Start: 08-21-2023 End: 08-21-2023 Patient encounter procedure 08/21/2023 10:00 AM EDT Office Visit Endocrinology [address] [address] Candi Sahu MD [address] [place], [place] [id number] pcos symptoms & thyroid Endocrinology Comment on above: pcos symptoms & thyroid Start: 08-01-2023 End: 08-01-2023 Patient encounter procedure 08/01/2023 2:00 PM EDT Office Visit OB/Gynecology [address] [place], [place] [id number] Komal Booth MD [address] [place], [place] [id number] IUD insertion OB/Gynecology Comment on above: IUD insertion Start: 05-30-2023 ANNUAL PCP TEAM CHRONIC DISEASE VISIT ANNUAL PCP TEAM CHRONIC DISEASE VISIT [facility] Start: 04-03-2023 BP CONTROLLED (<130/80) BP CONTROLLED (<130/80) [facility] Start: 03-26-2023 Depression Assessment Depression Assessment [facility] Start: 02-28-2023 ANNUAL PCP TEAM CHRONIC DISEASE VISIT ANNUAL PCP TEAM CHRONIC DISEASE VISIT [facility] Start: 02-06-2023 ANNUAL PCP TEAM CHRONIC DISEASE VISIT ANNUAL PCP TEAM CHRONIC DISEASE VISIT [facility] Start: 02-06-2023 PNEUMOCOCCAL (1 - PCV) PNEUMOCOCCAL (1 - PCV) [facility] Comment on above: Postponed from 10/07/1991 (Declined at t his time) Start: 02-06-2023 Pneumococcal vaccination Pneumococcal Vaccine (1 - PCV) [facility] Comment on above: Postponed from 10/07/1991 (Declined at t his time) Start: 11-24-2022 Covid-19 Vaccine ( season) Covid-19 Vaccine () [facility] Start: 11-24-2022 Influenza vaccination [facility] Start: 11-22-2022 ANNUAL PCP TEAM CHRONIC DISEASE VISIT ANNUAL PCP TEAM CHRONIC DISEASE VISIT [facility] Start: 11-02-2022 ANNUAL PCP TEAM CHRONIC DISEASE VISIT ANNUAL PCP TEAM CHRONIC DISEASE VISIT [facility] Start: 10-23-2022 End: 12-23-2022 Thyrotropin [Units/volume] in Serum or Plasma TSH BLD Lab Routine Hypothyroidism, acquired Expected: 10/23/2022 (Approximate), Expires: 12/23/2022 [facility] Work Phone: Comment on above: Expected: 10/23/2022 (Approximate), Expi res: 12/23/2022 Start: 10-23-2022 End: 12-23-2022 Thyroxine (T4) free [Mass/volume] in Serum or Plasma T4 FREE/FREE THYROX Lab Routine Hypothyroidism, acquired Expected: 10/23/2022 (Approximate), Expires: 12/23/2022 [facility] Work Phone: Comment on above: Expected: 10/23/2022 (Approximate), Expi res: 12/23/2022 Start: 10-04-2022 ANNUAL PCP TEAM CHRONIC DISEASE VISIT ANNUAL PCP TEAM CHRONIC DISEASE VISIT [facility] Start: 08-31-2022 ANNUAL PCP TEAM CHRONIC DISEASE VISIT ANNUAL PCP TEAM CHRONIC DISEASE VISIT [facility] Start: 08-30-2022 End: 10-30-2022 CREATININE 24 HR UR CREATININE 24 HR UR Lab Routine BMI 50.0-59.9, adult (HCC) Expected: 08/30/2022, Expires: 10/30/2022 [facility] Work Phone: Comment on above: Expected: 08/30/2022, Expires: 3 Start: 08-30-2022 End: 10-30-2022 URINE FREE CORTISOL BY LC-MS/MS URINE FREE CORTISOL BY LC-MS/MS Lab Routine BMI 50.0-59.9, adult (HCC) Expected: 08/30/2022, Expires: 10/30/2022 [facility] Work Phone: Comment on above: Expected: 08/30/2022, Expires: 3 Start: 08-03-2022 ANNUAL PCP TEAM CHRONIC DISEASE VISIT ANNUAL PCP TEAM CHRONIC DISEASE VISIT [facility] Start: 08-03-2022 COVID-19 VACCINE (3 - Booster) COVID-19 VACCINE (3 - Booster) [facility] Comment on above: Postponed from 01/27/2021 (Declined at t his time) Postponed from 10/22 (Declined at this time) Start: 06-30-2022 ANNUAL PCP TEAM CHRONIC DISEASE VISIT ANNUAL PCP TEAM CHRONIC DISEASE VISIT [facility] Start: 03-26-2022 DEPRESSION ASSESSMENT DEPRESSION ASSESSMENT [facility] Start: 03-25-2022 DEPRESSION ASSESSMENT DEPRESSION ASSESSMENT [facility] Comment on above: Postponed from 03/26/2021 (Declined at t his time) Start: 02-08-2022 Adult depression screening assessment DEPRESSION SCREENING [facility] Start: 02-07-2022 End: 04-09-2022 17-Hydroxyprogesterone [Mass/volume] in Serum or Plasma HYDROXYPROGESTERO-17 Lab Routine PCOS (polycystic ovarian syndrome) Hypothyroidism, acquired Expected: 02/07/2022, Expires: 04/09/2022 [facility] Work Phone: Comment on above: Expected: 02/07/2022, Expires: 3 Start: 02-07-2022 End: 04-09-2022 Aldosterone [Mass/volume] in Serum or Plasma ALDOSTERONE BLD Lab Routine PCOS (polycystic ovarian syndrome) Hypothyroidism, acquired Elevated blood pressure reading without diagnosis of hypertension Expected: 02/07/2022, Expires: 04/09/2022 [facility] Work Phone: Comment on above: Expected: 02/07/2022, Expires: 3 Start: 02-07-2022 End: 04-09-2022 Comprehensive metabolic 2000 panel - Serum or Plasma COMP METABOLIC PANEL Lab Routine PCOS (polycystic ovarian syndrome) Hypothyroidism, acquired Expected: 02/07/2022, Expires: 04/09/2022 [facility] Work Phone: Comment on above: Expected: 02/07/2022, Expires: 3 Start: 02-07-2022 End: 04-09-2022 DHEA-S BLD DHEA-S BLD Lab Routine PCOS (polycystic ovarian syndrome) Hypothyroidism, acquired Expected: 02/07/2022, Expires: 04/09/2022 [facility] Work Phone: Comment on above: Expected: 02/07/2022, Expires: 3 Start: 02-07-2022 End: 04-09-2022 DIRECT RENIN PLASMA DIRECT RENIN PLASMA Lab Routine PCOS (polycystic ovarian syndrome) Hypothyroidism, acquired Elevated blood pressure reading without diagnosis of hypertension Expected: 02/07/2022, Expires: 04/09/2022 [facility] Work Phone: Comment on above: Expected: 02/07/2022, Expires: 3 Start: 02-07-2022 End: 04-09-2022 Hemoglobin A1c in Blood HGB A1C Lab Routine PCOS (polycystic ovarian syndrome) Hypothyroidism, acquired Expected: 02/07/2022, Expires: 04/09/2022 [facility] Work Phone: Comment on above: Expected: 02/07/2022, Expires: 3 Start: 02-07-2022 End: 04-09-2022 Insulin [Units/volume] in Serum or Plasma INSULIN ASSAY BLOOD Lab Routine PCOS (polycystic ovarian syndrome) Hypothyroidism, acquired Expected: 02/07/2022, Expires: 04/09/2022 [facility] Work Phone: Comment on above: Expected: 02/07/2022, Expires: 3 Start: 02-07-2022 End: 04-09-2022 TESTOSTERONE, FREE AND TOTAL TESTOSTERONE, FREE AND TOTAL Lab Routine PCOS (polycystic ovarian syndrome) Hypothyroidism, acquired Expected: 02/07/2022, Expires: 04/09/2022 [facility] Work Phone: Comment on above: Expected: 02/07/2022, Expires: 3 Start: 02-07-2022 End: 04-09-2022 Thyroxine (T4) free [Mass/volume] in Serum or Plasma T4 FREE/FREE THYROX Lab Routine PCOS (polycystic ovarian syndrome) Hypothyroidism, acquired Expected: 02/07/2022, Expires: 04/09/2022 [facility] Work Phone: Comment on above: Expected: 02/07/2022, Expires: 3 Start: 02-06-2022 End: 04-08-2022 Thyrotropin [Units/volume] in Serum or Plasma TSH BLD Lab Routine Hypothyroidism, acquired Expected: 02/06/2022, Expires: 04/08/2022 [facility] Work Phone: Comment on above: Expected: 02/06/2022, Expires: 3 Start: 11-24-2021 Influenza vaccination INFLUENZA (#1) [facility] Start: 10-04-2021 End: 12-04-2021 CBC panel - Blood by Automated count CBC Lab Routine Epigastric pain Nausea Expected: 10/04/2021, Expires: 12/04/2021 [facility] Work Phone: Comment on above: Expected: 10/04/2021, Expires: 2 Start: 10-04-2021 End: 12-04-2021 Comprehensive metabolic 2000 panel - Serum or Plasma COMP METABOLIC PANEL Lab Routine Epigastric pain Nausea Expected: 10/04/2021, Expires: 12/04/2021 [facility] Work Phone: Comment on above: Expected: 10/04/2021, Expires: 2 Start: 10-04-2021 End: 12-04-2021 Lipase [Enzymatic activity/volume] in Serum or Plasma LIPASE BLD Lab Routine Epigastric pain Nausea Expected: 10/04/2021, Expires: 12/04/2021 [facility] Work Phone: Comment on above: Expected: 10/04/2021, Expires: 2 Start: 03-26-2021 DEPRESSION ASSESSMENT DEPRESSION ASSESSMENT [facility] Start: 01-27-2021 COVID-19 VACCINE (3 - Booster) COVID-19 VACCINE (3 - Booster) [facility] Start: 2006 Screening for malignant neoplasm of cervix [facility] Start: 2004 Hepatitis B Vaccine (1 of 3 - 19+ 3-dose series) Hepatitis B Vaccine (1 of 3 - 19+ 3-dose series) [facility] Start: 2004 Hepatitis B Vaccines (1 of 3 - 19+ 3-dose series) Hepatitis B Vaccines (1 of 3 - 19+ 3-dose series) [facility] Start: 10-07-2003 Anxiety Screening Anxiety Screening [facility] Start: 10-07-2003 BP CONTROLLED (<130/80) BP CONTROLLED (<130/80) [facility] Start: 10-07-2003 Depression Screening Depression Screening [facility] Start: 10-07-2003 SPIROMETRY SPIROMETRY [facility] Start: 1998 Varicella vaccination Varicella Vaccines (1 of 2 - 13+ 2-dose series) [facility] Start: 10-07-1991 PNEUMOCOCCAL (1 - PCV) PNEUMOCOCCAL (1 - PCV) [facility] Start: 1986 MMR Vaccines (1 of 1 - Standard series) MMR Vaccines (1 of 1 - Standard series) [facility] Start: 1985 HEPATITIS B (1 of 3 - 3-dose series) HEPATITIS B (1 of 3 - 3-dose series) [facility] Start: 1985 Hepatitis B Vaccine (1 of 3 - 3-dose series) Hepatitis B Vaccine (1 of 3 - 3-dose series) [facility] Start: 1985 Lipid panel Lipid Panel [facility] BACTERIAL VAGINOSIS NAAT BACTERI AL VAGINOSIS NAAT Lab Routine Retained tampon, sequela Vaginal odor 03/14/2024 3:32 PM EST [facility] GRICELDA/TRICHOMONAS NAAT GRICELDA /TRICHOMONAS NAAT Lab Routine Retained tampon, sequela Vaginal odor 03/14/2024 3:32 PM EST [facility] Work Phone: CORTISOL SALIVA CORTISOL SALIVA Lab Routine PCOS (polycystic ovarian syndrome) Hypothyroidism, acquired Ordered: 02/07/2022 [facility] Work Phone: Comment on above: Ordered: 02/07/2022 COVID & INFLUENZA A/ B & RSV NAAT, ROUTINE COVID & INFLUENZA A/B & RSV NAAT, ROUTINE Microbiology Routine Viral illness 06/11/2023 3:55 PM EDT [facility] Work Phone: COVID & INFLUENZA A/ B & RSV PCR, ROUTINE COVID & INFLUENZA A/B & RSV PCR, ROUTINE Microbiology Routine Sore throat Viral illness 03/10/2024 11:47 AM EST [facility] Work Phone: ECG COMPLETE ECG COMPLETE ECG Routine Primary hypertension 05/29/2022 10:32 AM EST [facility] Work Phone: Endometrial bx w/wo endocervix bx w/o dilat spx ENDOMETRIAL BIOPSY Procedures Routine Abnormal uterine bleeding (AUB) Ordered: 06/20/2023 [facility] Work Phone: Comment on above: Ordered: 06/20/2023 Herpes simplex virus+Varicella zoster virus DNA [Presence] in Unspecified specimen by NATHAN with probe detection HSV1,2/VZV NAAT LESION Lab Routine Abnormal uterine bleeding (AUB) Vaginal lesion 06/20/2023 10:32 AM EDT [facility] Work Phone: Insertion intrauteri ne device iud INSERT INTRAUTERINE DEVICE Procedures Routine Encounter for IUD insertion Ordered: 07/16/2023 [facility] Work Phone: Comment on above: Ordered: 07/16/2023 End: 07-03-2024 MG Breast - bilateral Diagnostic FRED DIAGNOSTIC BILATERAL Radiology Routine Mass overlapping multiple quadrants of right breast 1 Occurrences starting 06/04/2023 until 07/03/2024 [facility] Work Phone: Comment on above: 1 Occurrences starting 06/04/2023 until 07/03/2024 End: 09-04-2025 MG Breast - bilateral Diagnostic FRED DIAGNOSTIC BILATERAL Radiology Routine Nipple discharge 1 Occurrences starting 08/05/2024 until 09/04/2025 [facility] Comment on above: 1 Occurrences starting 08/05/2024 until 09/04/2025 End: 10-01-2025 MG Breast - left Diagnostic for implant FRED DIAGNOSTIC LEFT Radiology Routine Abnormal mammogram 1 Occurrences starting 09/01/2024 until 10/01/2025 [facility] Work Phone: Comment on above: 1 Occurrences starting 09/01/2024 until 10/01/2025 End: 03-09-2025 MR Brain WO contrast MRI BRAIN WO IVCON Radiology Routine New daily persistent headache 1 Occurrences starting 02/08/2024 until 03/09/2025 [facility] Work Phone: Comment on above: 1 Occurrences starting 02/08/2024 until 03/09/2025 End: 08-27-2025 MR Lumbar spine WO contrast MRI LUMBAR SPINE WO IVCON Radiology Routine Chronic midline low back pain without sciatica Spondylosis without myelopathy or radiculopathy, lumbar region 1 Occurrences starting 07/28/2024 until 08/27/2025 [facility] Work Phone: Comment on above: 1 Occurrences starting 07/28/2024 until 08/27/2025 Njx dx/ther agt pvrt facet jt lmbr/sac 1 level NJX DX/THER AGT PVRT FACET JT LMBR/SAC 1 LEVEL Procedures Routine Lumbar facet joint syndrome 1 Occurrences starting 10/20/2024 [facility] Work Phone: Comment on above: 1 Occurrences starting 10/20/2024 PAP TEST PAP TEST Lab Rou jaylen Screening for cervical cancer Screening for HPV (human papillomavirus) 08/21/2024 11:50 AM EDT [facility] Work Phone: End: 11-22-2021 Radex sacrum & coccyx minimum 2 views [facility] Work Phone: Comment on above: 1 Occurrences starting 11/22/2021 until 11/22/2021 SURGICAL PATHOLOGY SURGICAL PATH OLOGY Lab Routine Abnormal uterine bleeding (AUB) 07/11/2023 11:29 AM EDT [facility] Work Phone: End: 11-03-2022 Us abdominal real time w/image limited US ABD RT UPPER QUADRANT Radiology Routine Epigastric pain Nausea 1 Occurrences starting 10/04/2021 until 11/03/2022 [facility] Work Phone: Comment on above: 1 Occurrences starting 10/04/2021 until 11/03/2022 End: 09-04-2025 US Breast - left limited US BREAST LTD LEFT Radiology Routine Nipple discharge 1 Occurrences starting 08/05/2024 until 09/04/2025 [facility] Comment on above: 1 Occurrences starting 08/05/2024 until 09/04/2025 End: 07-03-2024 US Breast - right limited US BREAST LTD RIGHT Radiology Routine Mass overlapping multiple quadrants of right breast 1 Occurrences starting 06/04/2023 until 07/03/2024 [facility] Work Phone: Comment on above: 1 Occurrences starting 06/04/2023 until 07/03/2024 End: 07-19-2024 US Pelvis limited US FEMALE PELVIS TRANSABD LTD Radiology Routine Abnormal uterine bleeding (AUB) 1 Occurrences starting 06/20/2023 until 07/19/2024 [facility] Work Phone: Comment on above: 1 Occurrences starting 06/20/2023 until 07/19/2024 End: 07-19-2024 US Pelvis transvaginal US FEMALE PELVIS TRANSVAG Radiology Routine Abnormal uterine bleeding (AUB) 1 Occurrences starting 06/20/2023 until 07/19/2024 [facility] Work Phone: Comment on above: 1 Occurrences starting 06/20/2023 until 07/19/2024 End: 10-02-2025 US Thyroid gland US THYROID/PARATHYROID Radiology Routine Neck swelling 1 Occurrences starting 09/02/2024 until 10/02/2025 [facility] Work Phone: Comment on above: 1 Occurrences starting 09/02/2024 until 10/02/2025 XR KNEE GENERAL 4V A P BOTH/PA BOTH/LAT/MERC RIGHT XR KNEE GENERAL 4V AP BOTH/PA BOTH/LAT/MERC RIGHT Radiology Routine Acute pain of right knee 08/31/2021 11:11 AM EDT [facility] Work Phone: End: 09-26-2025 XR Lumbar spine 2 Views XR LUMBAR LIMITED 2V FLEX/EXT Radiology Routine 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 pain 1 Occurrences starting 08/27/2024 until 09/26/2025 [facility] Work Phone: Comment on above: 1 Occurrences starting 08/27/2024 until 09/26/2025 XR Lumbar spine 2 Views XR LUMBA R LIMITED 2V FLEX/EXT Radiology Routine 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 pain 09/22/2024 8:52 AM EDT [facility] End: 05-07-2025 XR Lumbar spine AP and Lateral and oblique XR LUMBAR PARS DEFECT 4V AP/LAT/BOTH OBL Radiology Routine 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 pain Chronic bilateral low back pain with right-sided sciatica 1 Occurrences starting 04/07/2024 until 05/07/2025 [facility] Work Phone: Comment on above: 1 Occurrences starting 04/07/2024 until 05/07/2025 XR Lumbar spine AP a nd Lateral and oblique XR LUMBAR PARS DEFECT 4V AP/LAT/BOTH OBL Radiology Routine 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 pain Chronic bilateral low back pain with right-sided sciatica 04/22/2024 9:53 AM EST [facility] Work Phone: XR Skull AP and Lateral XR SKULL 2V AP/LAT Radiology Routine Acquired deformity of skull 09/02/2024 11:36 AM EDT [facility] Work Phone: [facility] Immunizations Immunization Date Immunization Notes Care Provider Polina acuna 01-25-2022 influenza, injectabl e, quadrivalent, preservative free Farheen Almendarez WATCH REPAIR TECHNICIAN.[employer] Work Phone: [facility] Work Phone: 01-25-2022 influenza virus vacc ine, unspecified formulation Farheen Trisimon WATCH REPAIR TECHNICIAN.[employer] Work Phone: [facility] 03-16-2021 tetanus toxoid, redu cristy diphtheria toxoid, and acellular pertussis vaccine, adsorbed Aye Paola WATCH REPAIR TECHNICIAN.[employer] Work Phone: [facility] 12-15-2020 influenza, injectabl e, quadrivalent, contains preservative Aye Paola WATCH REPAIR TECHNICIAN.[employer] Work Phone: [facility] 12-15-2020 influenza, seasonal, injectable, preservative free Kacie Bird WATCH REPAIR TECHNICIAN.[employer] Work Phone: [facility] 08-27-2020 COVID-19 vaccine, ag e 12+ yr (PFIZER-BIONTECH - PURPLE TOP) Aye Paola WATCH REPAIR TECHNICIAN.[employer] Work Phone: [facility] 08-06-2020 COVID-19 original vaccine, age 12+ yr, monovalent (PFIZER-BIONTECH - PURPLE TOP) Kacie Bird WATCH REPAIR TECHNICIAN.[employer] Work Phone: [facility] 08-06-2020 COVID-19 vaccine (UNSPECIFIED) Aye Paola WATCH REPAIR TECHNICIAN.[employer] Work Phone: [facility] Work Phone: 02-02-2020 influenza, injectabl e, quadrivalent, contains preservative Aye Paola WATCH REPAIR TECHNICIAN.[employer] Work Phone: [facility] Work Phone: 01-27-2019 tetanus toxoid, redu cristy diphtheria toxoid, and acellular pertussis vaccine, adsorbed Aye Paola WATCH REPAIR TECHNICIAN.[employer] Work Phone: [facility] 01-24-2019 influenza, seasonal, injectable, preservative free Aye Paola WATCH REPAIR TECHNICIAN.[facility] Work Phone: [facility] Work Phone: 12-09-2018 influenza, injectabl e, quadrivalent, contains preservative Aye Paola WATCH REPAIR TECHNICIAN.[facility] Work Phone: [facility] Work Phone: 02-18-2011 influenza, seasonal, injectable Aye Paola WATCH REPAIR TECHNICIAN.[facility] Work Phone: [facility] 03-09-2010 influenza virus vacc ine, unspecified formulation Aye Paola WATCH REPAIR TECHNICIAN.[facility] Work Phone: [facility] Work Phone: 11-15-2006 human papilloma viru s vaccine, quadrivalent Aye Paola WATCH REPAIR TECHNICIAN.[facility] Work Phone: [facility] Work Phone: 11-15-2006 Human Papillomavirus 9-valent vaccine Aye Paola WATCH REPAIR TECHNICIAN.[facility] Work Phone: [facility] Work Phone: 06-29-2006 human papilloma viru s vaccine, quadrivalent Aye Paola WATCH REPAIR TECHNICIAN.[facility] Work Phone: [facility] Work Phone: 06-29-2006 Human Papillomavirus 9-valent vaccine Yae Paola WATCH REPAIR TECHNICIAN.[facility] Work Phone: [facility] Work Phone: 04-27-2006 human papilloma viru s vaccine, quadrivalent Aye Paola WATCH REPAIR TECHNICIAN.[facility] Work Phone: [facility] Work Phone: 04-27-2006 Human Papillomavirus 9-valent vaccine Aye Paola WATCH REPAIR TECHNICIAN.[facility] Work Phone: [facility] Work Phone: Payers Date Payer Category Payer Self-pay 2024 Managed Care (Private) [facility] [id number] 2022 Private Health Insurance [id number] 2022 Unknown [id number] 2021 Unknown [employer] PPO OOS [id number] 2021-Present [phone] [address] [place] [address] PPO [id number] 2021 Unknown [employer] PPO OOS [id number] 2021-Present [phone] [address] [place] [address] PPO [id number] Unknown [id number] Unknown [id number] Unknown [id number] Social History Date Type Detail Facility Start: 02-07-2022 End: 05-06-2024 Tobacco smoking status NHIS Never smoked tobacco [facility] Work Phone: Start: 06-30-2021 End: 09-22-2024 Alcohol intake Ex-drinker (finding) [facility] Start: 02-21-2018 History SDOH Alcohol Comment monthy use [facility] Start: 05-17-2020 Education 17 [facility] Start: 1985 Sex Assigned At Female [facility] Start: 06-19-2021 End: 02-07-2022 Exposure to SARS-CoV-2 (event) Not sure [facility] Start: 02-07-2022 End: 05-06-2024 Tobacco use and exposure Smokeless tobacco non-user [facility] Start: 08-29-2022 End: 11-13-2024 History of Social function [facility] Work Phone: Start: 08-29-2022 End: 11-13-2024 Tobacco use panel [facility] Work Phone: Start: 02-25-2012 Adult Depression Screening Assessment 0 [facility] Work Phone: Start: 09-29-2020 Gender identity Identifies as female gender (finding) [facility] Start: 09-29-2020 Sexual orientation Heterosexual (finding) [facility] Start: 1985 Sex assigned at Not on file [facility] Work Phone: How often to you hav e a drink containing alcohol? Monthly or less [facility] How many standard drinks containing alcohol do you have on a typical day? 1 or 2 [facility] How often do you hav e 6 or more drinks on 1 occasion? Never [facility] Goals Date Patient Goal Desired Activity /State Personal health goal Functional Status Date Assessment Result Facility 11-13-2024 Total score [AUDIT-C] 1 11/14/19 25 9:25 AM Della Tan MA [facility] 10-02-2014 Are you deaf, or do you have serious difficulty hearing No 10/02/2014 9:05 AM Marielle Bagley MA No [facility] 10-02-2014 Are you blind, or do you have serious difficulty seeing, even when wearing glasses No 10/02/2014 9:05 AM Marielle Bagley MA No [facility] 10-02-2014 Do you have serious difficulty walking or climbing stairs No 10/02/2014 9:05 AM EDT Marielle Whitley MA [facility] 10-02-2014 Do you have difficul ty dressing or bathing No 10/02/2014 9:05 AM EDT Marielle Whitley MA [facility] 10-02-2014 Because of a physica l, mental, or emotional condition, do you have difficulty doing errands alone such as visiting a physician's office or shopping No 10/02/2014 9:05 AM EDT Marielle Whitley MA No [facility] Mental Status Date Assessment Result Facility 10-02-2014 Because of a physica l, mental, or emotional condition, do you have serious difficulty concentrating, remembering, or making decisions No 10/02/2014 9:05 AM EDT Marielle Whitley MA [facility] Clinical Notes 10-07-2020 to 11-19-2024 Vickie Mondragon RT(R) - 11/19/2024 9:30 AM Komal Benitez MD - 11/17/2024 2:17 PM EDTTelephone Encounter - Mary Rose MA - 11/17/2024 8:26 AM EDTPatient Instructions Note Date & Type Note Facility 11-19-2024 History of Present illness Narrative RADIOLOGY SERVICE PROGRESS NOTE SERVICE DATE: 11/19/2024 SERVICE TIME: 2:26 PM PATIENT IDENTITY VERIFICATION COMPLETED USING TWO (2) STANDARD IDENTIFIERS: Name and Date of confirmed by patient verbally and Name and Date of confirmed by identification band FALL SCREENING: Has the patient had 2 falls in the last year or 1 fall with injury or currently using an Ambulatory Assistive Device (Walker, Cane, Wheelchair, Crutches, etc.)? No PATIENT GENDER DATA: .female : No ALLERGIES: Reviewed and unchanged MEDICATIONS REVIEWED: Not applicable PATIENT RELEVANT IMPLANT DATA REVIEWED: Not Applicable PATIENT PRESENTS WITH AN IMPLANTABLE OR ATTACHED MEN'S SWIM COACH: No CREATININE: Creatinine Date Value Ref Range Status 11/06/2024 1.03 (H) 0.58 - 0.96 mg/dL Final 08/05/2024 0.87 0.58 - 0.96 mg/dL Final 08/05/2024 0.87 0.58 - 0.96 mg/dL Final Estimated Glomerular Filtration Rate Date Value Ref Range Status 11/06/2024 71 >=60 mL/min/1.73m Final Comment: Estimated Glomerular Filtration Rate (eGFR) is calculated using the 2020 CKD-EPI creatinine equation. This equation utilizes serum creatinine, sex, and age as parameters. The creatinine assay has traceable calibration to isotope dilution-mass spectrometry. Refer to KDIGO guidelines for clinical interpretation. In patients with unstable renal function, e.g. those with acute kidney injury, the eGFR may not accurately reflect actual GFR. eGFR- Date Value Ref Range Status 05/16/2021 >60 Final P.O.C.T. RESULTS: N/A November 19, [address] PERFORMED: No IV SITE: Ambulatory: A peripheral IV was started in the Right antecubital site with a Angio cath: 24 gauge. POST EXAM PIV STATUS: Discontinued PROCEDURE TYPE: NM Parathyroid: 226 microcurries of Nal 123 capsules was administered orally at 09:48. 32.0 mCi of Tc99m Sestamibi was injected IV at 13:50. PATIENT DISCHARGED TO: Ambulatory patient, left [place] department area. Is this a therapy: No A Diagnostic radioactive procedure has taken place, with no further precautions necessary other than routine body substance precautions. More information regarding radiation safety can be found using this link: [email or web address] [email or web address] SIGNATURE: CHAIM Billy) PATIENT NAME: Sonia Lara DATE: November 19, 2024 TIME: 2:26 PM PAGER/CONTACT #: documented in this encounter [facility] 11-19-2024 Note HNO ID: [id number] Author: VICKIE MONDRAGON RT(R) Service: Nuclear Medicine Author Type: Technologist Type: Progress Notes Filed: 11/19/2024 14:27 Note Text: RADIOLOGY SERVICE PROGRESS NOTE SERVICE DATE: 11/19/2024 SERVICE TIME: 2:26 PM PATIENT IDENTITY VERIFICATION COMPLETED USING TWO (2) STANDARD IDENTIFIERS: Name and Date of confirmed by patient verbally and Name and Date of confirmed by identification band FALL SCREENING: Has the patient had 2 falls in the last year or 1 fall with injury or currently using an Ambulatory Assistive Device (Walker, Cane, Wheelchair, Crutches, etc.)? No PATIENT GENDER DATA: .female : No ALLERGIES: Reviewed and unchanged MEDICATIONS REVIEWED: Not applicable PATIENT RELEVANT IMPLANT DATA REVIEWED: Not Applicable PATIENT PRESENTS WITH AN IMPLANTABLE OR ATTACHED MEN'S SWIM COACH: No CREATININE: Creatinine Date Value Ref Range Status 11/06/2024 1.03 (H) 0.58 - 0.96 mg/dL Final 08/05/2024 0.87 0.58 - 0.96 mg/dL Final 08/05/2024 0.87 0.58 - 0.96 mg/dL Final Estimated Glomerular Filtration Rate Date Value Ref Range Status 11/06/2024 71 >=60 mL/min/1.73m? Final Comment: Estimated Glomerular Filtration Rate (eGFR) is calculated using the 2020 CKD-EPI creatinine equation. This equation utilizes serum creatinine, sex, and age as parameters. The creatinine assay has traceable calibration to isotope dilution-mass spectrometry. Refer to KDIGO guidelines for clinical interpretation. In patients with unstable renal function, e.g. those with acute kidney injury, the eGFR may not accurately reflect actual GFR. eGFR- Date Value Ref Range Status 05/16/2021 >60 Final P.O.C.T. RESULTS: N/A November 19, [address] PERFORMED: No IV SITE: Ambulatory: A peripheral IV was started in the Right antecubital site with a Angio cath: 24 gauge. POST EXAM PIV STATUS: Discontinued PROCEDURE TYPE: NM Parathyroid: 226 microcurries of Nal 123 capsules was administered orally at 09:48. 32.0 mCi of Tc99m Sestamibi was injected IV at 13:50. PATIENT DISCHARGED TO: Ambulatory patient, left [place] department area. Is this a therapy: No A Diagnostic radioactive procedure has taken place, with no further precautions necessary other than routine body substance precautions. More information regarding radiation safety can be found using this link: [email or web address] 20Diagnostic%20Nuclear%20Medicine %20Procedures.pdf SIGNATURE: RT Mariajose(R) PATIENT NAME: Sonia Lara DATE: November 19, 2024 TIME: 2:26 PM PAGER/CONTACT #: [facility] 11-17-2024 Note [facility] Medical Records Department [address] [place] [address] History Physical Exam 11/17/24 1426 MR#: [id number] Acct: [id number] Name: SONIA LARA Rep #: [id number] : 1985 39 From: Komal Booth MD PCP: Dr. Lauren Ramirez, DO Status:PRE SDC Location: SDC History and Physical Date of Admission: 11/20/24 HPI: The patient is a 39 year old female presenting for pre-operative visit. She is scheduled for TLH with cystoscopy, for dysmenorrhea, menorrhagia, malpositioned IUD on 11/20/24. Procedure discussed along with risks, benefits and complications. Other alternatives discussed for management. Consent form signed? Yes. ? PAST MEDICAL HISTORY PAST MEDICAL HISTORYDiagnosisDate???Abnormal Pap smear of cervix?Acquired hypothyroidism?- check TSH ???Amenorrhea, unspecified?- pt to track periods and we will discuss at next visit ???Anemia complicating , third trimester (HCC)01/28/2019???Binge eating disorder?Childhood asthma (HCC)?LES I (cervical intraepithelial neoplasia I)2007???COVID-19105/05/2019???Wit h pneumonia???Exercise- induced asthma (HCC)07/16/2019???fatty liver?peggscbr7ra grade???growth plate right wrist-4 berkowitz accident???H/O bariatric jnxbygj6012/13/2016???Dr. Katz, ???Hemangioma of liver?Infertility, female?Obesity?PCOS (polycystic ovarian syndrome)? arsyeguelm49/12/2020???Primary pcfgotasylsh24/06/2022???Seasonal allergies? PAST SURGICAL HISTORY PAST SURGICAL HISTORYProcedureLateralityDate??? BARIATRIC SURGERY HX???12/13/2016???Sleeve. Dr. Katz???C- SECTION SNGL???04/12/2019???C/S low transverse???CAUTERY CERVIX CRYOCAUTERY INITIAL/REPEAT???2007??? DELIVERY ONLY???05/17/2021???LTCS???D C SUCTION???06/22/2020???incomplete ab???HERNIA REPAIR HX?INSERTION OF IUD???08/01/2023???REVISION OF FOOT XMLFYYbvj77/15/2013???Ganglion Cyst/Bone Spur removed, Bone shaved. Left Foot Dr. Pickard???SHWQJNRKDULHCRjlzactgu03/ 22/2022???at second c/s???TONSILLECTOMY HX? CURRENT MEDICATIONS Current Outpatient MedicationsMedicationSigDispenseR efill???ergocalciferol 50,000 unit capsule (VITAMIN D2, DRISDOL)TAKE 1 CAPSULE BY MOUTH ONCE A WEEK4 capsule1???tirzepatide, weight loss (ZEPBOUND) 12.5 mg/0.5 mL pen injectorInject 12.5 mg subcutaneously one time a week.2 mL5???traZODone (DESYREL) 50 mg tabletTake 1 tablet by mouth daily at bedtime.30 [id number]???sertraline (ZOLOFT) 100 mg tabletTake 1 tablet by mouth once daily.90 tablet1???levothyroxine (SYNTHROID) 100 mcg tabletTake 1 tablet by mouth once daily.90 tablet3???levonorgestrel (MIRENA) 21 mcg/24 hours (8 yrs) 52 mg IUD1 Each by INTRAUTERINE route as directed.1 Each0???albuterol HFA (PROVENTIL HFA, VENTOLIN HFA) 90 mcg/actuation inhalerInhale 2 Puffs as instructed every 4 hours as needed for wheezing/shortness of breath.1 Each5???clotrimazole (LOTRIMIN, CLOTRIM) 1 % creamAPPLY TO AFFECTED AREA TWICE A DAY28.4 g2??? No current facility-administered medications for this visit. ? ALLERGIES: Codeine and Lisinopril ??? PERSONAL HISTORY: [SOCIAL HISTORY] [SOCIAL HISTORY] Social History Tobacco Use ??? Smoking status: Never ??? Smokeless tobacco: Never Vaping Use ??? Vaping status: Never Used Substance Use Topics ??? Alcohol use: Not Currently ? Comment: monthy use ??? Drug use: Never ??? FAMILY HISTORY: FAMILY HISTORY FAMILY HISTORY ProblemRelationAge of Onset???other (Diabetes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 Medications on File Prior to Visit Medication Sig ergocalciferol 50,000 unit capsule (VITAMIN D2, DRISDOL) TAKE 1 CAPSULE BY MOUTH ONCE A WEEK tirzepatide, weight loss (ZEPBOUND) 12.5 mg/0.5 mL pen injector Inject 12.5 mg subcutaneously one time a week. traZODone (DESYREL) 50 mg tablet Take 1 tablet by mouth daily at bedtime. sertraline (ZOLOFT) 100 mg tablet Take 1 tablet by mouth once daily. levothyroxine (SYNTHROID) 100 mcg tablet Take 1 tablet by mouth once daily. levonorgestrel (MIRENA) 21 mcg/24 hours (8 yrs) 52 mg IUD 1 Each by INTRAUTERINE route as directed. albuterol HFA (PROVENTIL HFA, VENTOLIN HFA) 90 mcg/actuation inhaler Inhale 2 Puffs as instructed every 4 hours as needed for wheezing/shortness of breath. clotrimazole (LOTRIMIN, CLOTRIM) 1 % cream APPLY TO AFFECTED AREA TWICE A DAY No current facility-administered medications on file prior to visit. All: ALLERGIES Allergen Reactions Codeine Other: See Comments Nausea Lisinopril Cough SH: SOCIAL HISTORY[1] FH: Pertinent history above; otherwise, non-contributory REVIEW OF SYSTEMS: GENERAL: Well-appearing, no malaise or fevers HEENT: Negative for occular, acoustic, nasal, or oral complaints NECK: See HPI RESPIRATORY: Negative for cough, hemoptysis, wheezing, or resting dyspnea CARDIOVASCULAR: Negative for resting chest pain GI: No nausea, vomiting, or diarrhea MUSCULOSKELETAL: Negative for joint swelling or acute pain PSYCH: Negative for significant mood disorder or psychiatric illness ENDOCRINE: See HPI NEURO: No history of recent syncope, paralysis, or seizures PHYSICAL EXAM: On physical exam, Sonia Lara is well appearing, alert, and oriented and appears euthyroid. On inspection, the skin over the anterior neck is smooth, no mass is visualized. Palpation revealed neck to be supple, thyroid gland is palpable and overall normal in size. No lymphadenopathy was palpated on either side of the neck. ULTRASOUND EXAMINATION: Ultrasound examination was performed in the office. The thyroid had a diffusely heterogenous appearance consistent with chronic lymphocytic thyroiditis. Posterior to the right thyroid lobe was a hypoechoic structure that measured 1.2 x 0.4 x 0.9 cm that was typical in appearance for enlarged parathyroid gland adenoma. No worrisome lymphadenopathy was appreciated in either central neck compartment or jugular chain. LABS: TSH (more content not included)... [facility] 11-10-2024 History of Present illness Narrative Gonzalo Hernadez M.D. [facility] [address], [place] [address] ENDOCRINE SURGERY NEW CONSULTATION NAME: Sonia Lara [facility] NO: [id number] : 1985 REFERRING PROVIDER: Farheen Almendarez APRN.GRISELDA Sahu MD The patient was referred by the above provider and my findings and recommendations will be communicated by way of the shared medical record or [place].S. mail. HPI: Sonia Lara was evaluated today for a consultation regarding the following condition(s): Primary hyperparathyroidism (hcc) (primary encounter diagnosis). New or established diagnosis: New Mode of detection: Routine serum chemistry Associated symptoms: Yes; fatigue History of head and neck radiation: No First-degree family history of endocrine tumors: No History of previous thyroid biopsy: No History of prior cervical operation: No Pertinent medications (blood thinners, calcium, biotin, diuretics, lithium): No PMH: PAST MEDICAL HISTORY Diagnosis Date Abnormal Pap smear of cervix Acquired hypothyroidism - check TSH Amenorrhea, unspecified - pt to track periods and we will discuss at next visit Anemia complicating , third trimester (HCC) 01/28/2019 Binge eating disorder Childhood asthma (HCC) LES I (cervical intraepithelial neoplasia I) 2006 COVID-19 03/04/2020 With pneumonia Exercise-induced asthma (HCC) 07/16/2019 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 Katz, Hemangioma of liver Infertility, female Obesity PCOS (polycystic ovarian syndrome) depression 01/05/2020 Primary hypertension 02/28/2022 Seasonal allergies PSH: PAST SURGICAL HISTORY Procedure Laterality Date BARIATRIC SURGERY HX 12/13/[address] Katz SNGL 04/12/2019 C/S low transverse CAUTERY CERVIX CRYOCAUTERY INITIAL/REPEAT 2006 DELIVERY ONLY 05/17/2021 LTCS D&C SUCTION 06/22/2020 incomplete ab HERNIA REPAIR HX INSERTION OF IUD 08/01/2023 REVISION OF FOOT BONES Left 02/07/2013 Ganglion Cyst/Bone Spur removed, Bone shaved. Left Foot Dr. Pickard SALPINGECTOMY Bilateral 05/17/2021 at second c/s TONSILLECTOMY HX Medications: Current Outpatient Medications on File Prior to Visit Medication Sig ergocalciferol 50,000 unit capsule (VITAMIN D2, DRISDOL) TAKE 1 CAPSULE BY MOUTH ONCE A WEEK tirzepatide, weight loss (ZEPBOUND) 12.5 mg/0.5 mL pen injector Inject 12.5 mg subcutaneously one time a week. traZODone (DESYREL) 50 mg tablet Take 1 tablet by mouth daily at bedtime. sertraline (ZOLOFT) 100 mg tablet Take 1 tablet by mouth once daily. levothyroxine (SYNTHROID) 100 mcg tablet Take 1 tablet by mouth once daily. levonorgestrel (MIRENA) 21 mcg/24 hours (8 yrs) 52 mg IUD 1 Each by INTRAUTERINE route as directed. albuterol HFA (PROVENTIL HFA, VENTOLIN HFA) 90 mcg/actuation inhaler Inhale 2 Puffs as instructed every 4 hours as needed for wheezing/shortness of breath. clotrimazole (LOTRIMIN, CLOTRIM) 1 % cream APPLY TO AFFECTED AREA TWICE A DAY No current facility-administered medications on file prior to visit. All: ALLERGIES Allergen Reactions Codeine Other: See Comments Nausea Lisinopril Cough SH: SOCIAL HISTORY[1] FH: Pertinent history above; otherwise, non-contributory REVIEW OF SYSTEMS: GENERAL: Well-appearing, no malaise or fevers HEENT: Negative for occular, acoustic, nasal, or oral complaints NECK: See HPI RESPIRATORY: Negative for cough, hemoptysis, wheezing, or resting dyspnea CARDIOVASCULAR: Negative for resting chest pain GI: No nausea, vomiting, or diarrhea MUSCULOSKELETAL: Negative for joint swelling or acute pain PSYCH: Negative for significant mood disorder or psychiatric illness ENDOCRINE: See HPI NEURO: No history of recent syncope, paralysis, or seizures PHYSICAL EXAM: On physical exam, Sonia Lara is well appearing, alert, and oriented and appears euthyroid. On inspection, the skin over the anterior neck is smooth, no mass is visualized. Palpation revealed neck to be supple, thyroid gland is palpable and overall normal in size. No lymphadenopathy was palpated on either side of the neck. ULTRASOUND EXAMINATION: Ultrasound examination was performed in the office. The thyroid had a diffusely heterogenous appearance consistent with chronic lymphocytic thyroiditis. Posterior to the right thyroid lobe was a hypoechoic structure that measured 1.2 x 0.4 x 0.9 cm that was typical in appearance for enlarged parathyroid gland adenoma. No worrisome lymphadenopathy was appreciated in either central neck compartment or jugular chain. LABS: TSH Date Value Ref Range Status 08/05/2024 0.627 0.270 - 4.200 mIU/L Final Comment: If the patient is , TSH reference range varies by gestational period: First Trimester (weeks 9-12): 0.180-2.990 mIU/L Second Trimester: 0.110-3.980 mIU/L Third Trimester: 0.480-4.710 mIU/L Ramirez Alonso et al. A Practical Approach for the Verifications and Determination of Site- and Trimester-Specific Reference Intervals for Thyroid Function tests in . Thyroid, 2019:29:3:412-420. Joey Champagne et al. 2017 Guidelines of the [place] [employer] Association for the Diagnosis and Management of Thyroid Disease during and the . Thyroid, 2017:27:3:315-389. 02/15/2024 08/05/2024 11/06/2024 11/08/2024 - PARATHYROID DATA SHEET Calcium 10.4 (H) 10.3 (H) Ionized Calcium 1.31 (H) 1.38 (H) 1.30 PTH, Intact 96 (H) 137 (H) 87 (H) Phosphorus 1.9 (L) Creatinine Creatinine 0.87 1.03 (H) Creatinine 0.87 Vitamin D 25 Hydroxy 22.5 (L) Creatinine 24 hr Ur 1.309 Calcium, 24 Hr Urine 119.0 ASSESSMENT and PLAN: In summary, Sonia Lara has symptomatic primary hyperparathyroidism with significant hypercalcemia. Given her young age and the desire to avoid bone loss and potential kidney stones or chronic kidney disease, I recommend parathyroid exploration and parathyroidectomy. We had a detailed discussion regarding the natural course of the condition, the treatment options, and the role of parathyroidectomy in providing potential cure. Informed consent was obtained for the aforementioned operation. The illness itself, the natural course of the illness, the procedure, the benefits, the risks, the alternatives, and who will comprise the surgical team were all explained to the patient in depth. They agreed to the operation (scheduled for ,12/30/24). She has a history of sleeve gastrectomy and so I recommend calcium citrate postoperativelyI appreciate being involved in the care of your patient, and please feel free to contact me should you have additional questions. I spent a total of 45 minutes on the date of the service which included preparing to see the patient, [id number] patient care, completing clinical documentation, obtaining and/or reviewing separately obtained history, performing a medically appropriate examination, counseling and educating the patient/family/caregiver, ordering medications, tests, or procedures, communicating with other HCPs (not separately reported), independently interpreting results (not separately reported), communicating results to the patient/family/caregiver, and care coordination (not separately reported). The medical decision making complexity for this encounter was moderate to high considering that the patient has a new complaint with a potential for significant morbidity if untreated or misdiagnosed. We had a detailed discussion regarding the natural course of the condition, the treatment options, and the potential role of surgery as a treatment option. Sincerely, Gonzalo Hernadez M.D. Endocrine Surgeon [facility] CC: MD Farheen Whitney APRN.FRUIT HARVESTER [1] Social History Tobacco Use Smoking status: Never Smokeless tobacco: Never Vaping Use Vaping status: Never Used Substance Use Topics Alcohol use: Not Currently Comment: monthy use Drug use: Never documented in this encounter [facility] 11-04-2024 Telephone encounter Note Received fax from [employer] requesting allen. Pt. Is on zepbound. Mary Rose MA [facility] 11-04-2024 Miscellaneous Notes Received fax from [employer] requesting allen. Pt. Is on zepbound. Mary Rose MA documented in this encounter [facility] 10-27-2024 Note HNO ID: [id number] Author: SALVADOR ZHOU PT Service: ? Author Type: Physical Therapist Type: Progress Notes Filed: 10/27/2024 09:38 Note Text: 10/27/2024 [facility] PHYSICAL THERAPY DISCONTINUANCE OF CARE Plan of Care Period: Start of Care Date: 07/01/24 Last Visit Date: 07/21/2024 Therapy Program: The following is a summary of the interventions provided for this episode of care; Therapeutic exercise, Patient/Family/Caregiver Education, and Body mechanics training Assessment: Based on most recent visit, patient was progressing slower than expected toward functional goals based on pain levels and documented subjective information on progress. Unable to formally assess goal achievement, as patient has not returned to therapy or scheduled additional follow-up appointments. Reason for Discontinuation of Care: Patient has not returned to therapy or scheduled additional follow-up appointments. Salvador Zhou, PT [facility] 10-20-2024 Note HNO ID: [id number] Author: ELVI SOTO MA Service: ? Author Type: Supervisor Riveting Type: Progress Notes Filed: 10/20/2024 16:03 Note Text: Patient scheduled for injection during today's OV. Patient scheduled for: 11/20/24 Patient instructed to hold the following medication(s) prior to the procedure: - NSAIDS (Advil, Motrin, Ibuprofen, Aleve, Naproxen, Excedrin, etc) 5 days Pre-procedure instructions discussed during OV and paper copy of instructions handed to patient. Patient verbalized understanding. [facility] 10-20-2024 History of Present illness Narrative Patient scheduled for injection during today's OV. Patient scheduled for: 11/20/24 Patient instructed to hold the following medication(s) prior to the procedure: - NSAIDS (Advil, Motrin, Ibuprofen, Aleve, Naproxen, Excedrin, etc) 5 days Pre-procedure instructions discussed during OV and paper copy of instructions handed to patient. Patient verbalized understanding. Images from the original note were not included. [facility] Pain Management Department Date: October 20, 2024 - 1:56 PM Sonia Lara is seen in consultation requested by Fredo Ames for an opinion regarding chronic lower back pain. My final recommendations will be communicated back to the requesting physician by way of shared medical record or via [place] mail. Tata Chief Complaint: back pain SUBJECTIVE: Sonia Lara, is a 39 year old female who presents with lower back pain. The pain started years ago, with no known injury or trauma. She states that there has been some mild improvement in that during her and her last was 3 years ago. Over the last 3 years she states that her pain has gotten progressively worse.. The pain onset was gradual in nature. The patient states that the current pain is persistent. Her pain is located in the bilateral lumbar region and gluteal region and does not radiate.. // The pain is described as burning and sharp. The pain intensity is rated 3. The pain is exacerbated by being really active or prolonged sitting and relieved by heat, stretching, and medication (Tramadol). Symptoms interfere with sleeping. 100% pain in spine vs 0% (radiating) pain in the extremity. Litigation: No. Worker's Compensation: No. Prior pain treatment has included: Medication(s): Tramadol Physical therapy: 07/01/24-07/21/24 (4 sessions) at [facility] in [place] with no relief. Injection(s): None Surgery: None Patient Entered Questionnaires PROMIS Score Percentiles 01/02/2023 07/09/2023 07/01/2024 PROMIS Global Health Scale Physical Health Percentile 53 41 31 Mental Health Percentile 73 63 53 Proxy-reported 07/01/2024 07/07/2024 Physical Health Physical Function Percentile 50 Pain Interference Percentile 18* Proxy-reported Percentiles provide an indication of how the patient's score ranks in relation to the general population. Higher percentile rankings indicate better function/quality of life. 50th percentile is the average of the general population and indicates half of respondents had a worse score. > 31st percentile is within normal limits or better * < 31st percentile is at least SD worse than population, which may be clinically relevant < 16th percentile is at least 1 SD worse than population and warrants attention ALLERGIES Allergen Reactions Codeine Other: See Comments Nausea Lisinopril Cough Current Medications: Pain medications reviewed and reconciled in the medication list: Yes. Current Outpatient Medications Medication Sig ergocalciferol 50,000 unit capsule (VITAMIN D2, DRISDOL) TAKE 1 CAPSULE BY MOUTH ONCE A WEEK tirzepatide, weight loss (ZEPBOUND) 12.5 mg/0.5 mL pen injector Inject 12.5 mg subcutaneously one time a week. traZODone (DESYREL) 50 mg tablet Take 1 tablet by mouth daily at bedtime. sertraline (ZOLOFT) 100 mg tablet Take 1 tablet by mouth once daily. levothyroxine (SYNTHROID) 100 mcg tablet Take 1 tablet by mouth once daily. levonorgestrel (MIRENA) 21 mcg/24 hours (8 yrs) 52 mg IUD 1 Each by INTRAUTERINE route as directed. albuterol HFA (PROVENTIL HFA, VENTOLIN HFA) 90 mcg/actuation inhaler Inhale 2 Puffs as instructed every 4 hours as needed for wheezing/shortness of breath. clotrimazole (LOTRIMIN, CLOTRIM) 1 % cream APPLY TO AFFECTED AREA TWICE A DAY No current facility-administered medications for this visit. 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 Katz, Hemangioma of liver Infertility, female Obesity PCOS (polycystic ovarian syndrome) depression 01/05/2020 Primary hypertension 02/28/2022 Seasonal allergies PAST SURGICAL HISTORY Procedure Laterality Date BARIATRIC SURGERY HX 12/13/[address] Katz SNGL 04/12/2019 C/S low transverse CAUTERY CERVIX CRYOCAUTERY INITIAL/REPEAT 2006 DELIVERY ONLY 05/17/2021 [facility] SUCTION 06/22/2020 incomplete ab HERNIA REPAIR HX INSERTION OF IUD 08/01/2023 REVISION OF FOOT BONES Left 02/07/2013 Ganglion Cyst/Bone Spur removed, Bone shaved. Left Foot Dr. 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) Years Of Education Completed: 15 years Marital Status: to Joel with 1 child REVIEW OF SYSTEMS: Constitutional: (-) Fever (-) Night Sweats (-) Weight Gain (-) Weight Loss (+) Fatigue Cardiovascular: (-) Chest Pain (-) Palpitations (-) Lightheadedness (-) Swelling of Ankles (-) Hx Heart Surgery Respiratory: (-) Shortness of Breath (-) Cough (-) Wheezing (-) Snoring Gastrointestinal: (-) Incontinence (-) Abdominal Pain (-) Diarrhea (-) Constipation (-) Nausea/Vomiting (-) Heart Burn Endocrine: (+) Thyroid Disorder (-) Diabetes Hematologic: (-) Prolonged Bleeding (-) Easy Bruising Genitourinary: (-) Incontinence (-) Frequency (-) Urinary Urgency Skin: (-) Rashes (-) Itching (-) Other Lesions Neurologic: (-) Headache (-) Double Vision (-) Confusion (-) Paralysis (-) Vertigo (-) Syncope Psychiatric: (-) Depression (-) Anxiety OARRS Report reviewed: Yes Narcotic Agreement reviewed and signed?: N/A Baseline Urine Toxicology obtained: N/A PHYSICAL EXAM: Performed in conjunction with observation. The patient was alert and oriented x3. The patient was in no acute distress. Lungs: Clear, negative for dyspnea or distress. CVR: Regular Rate. Negative for SOB or peripheral edema. Neck: Supple. The range of motion was intact. Negative focal tenderness Back: Range of motion of the trunk was intact. Bilateral paralumbar tenderness. SLR: Negative Facet Loading: Positive with axial loading and extension. SI joint: Negative PSIS tenderness. Extremities: no reported edema or erythema. Motor: Negative focal deficits Sensory: Intact light touch bilateral lower extremities to the level of the ankles Gait: Within normal limits Medical record and diagnostic tests were reviewed for today's visit. ASSESSMENT/PLAN: 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 pain Lumbar facet joint syndrome (primary encounter diagnosis) Chronic low back pain. MRI reveals hyperlordosis with lumbar facet arthropathy mostly over the L4-5 and L5-S1 levels. She has also associated muscle atrophy in the lower lumbar segment. We discussed multicomponent pain source. Recommended a trial of lumbar facet injection as diagnostic with therapeutic approach. No new medication was prescribed. Encouraged home physical therapy. Follow-up 2 weeks after the first injection and if necessary we will proceed with a second injection followed by possible RFA in the future. The above plan and management options were discussed with patient. The patient is in agreement with the above and verbalized understanding. I have discussed and confirmed the above treatment plan with the patient and I have reviewed the nurses notes and I am aware of the family/social history. I have confirmed ROS findings. Guero Guillen MD 1. This document has been created with the use of voice recognition technology. It may contain inaccuracies: (e.g. misspellings, inaccurate syntax or word sense) that have escaped review. 2. The nurse practitioner, nursing staff and medical assistants are a major part of YOUR TREATMENT TEAM and will be handling your phone calls and inquiries, if any. Unless explicitly told otherwise at the time of your office visit, your study results and ensuing treatment plans will be discussed during your follow-up appointment. If you do not have a follow-up appointment and wish to discuss any issues, please set up an appointment. 3. All of the office notes, study results, and other pertinent documentation generated as part of your evaluation will be available to you and to your Primary Care Physician (PCP). Use of this material to complete such forms will be at the discretion of your PCP/referring physician. October 20, 2024 cc: Fredo Ames [address] [place] [address] Results of consultation to be transmitted via electronic medical record for those providers who practice within [facility] or with access to [employer] via MD Connect, or via letter. documented in this encounter [facility] 10-20-2024 Note HNO ID: [id number] Author: GUERO GUILLEN MD Service: ? Author Type: Physician Type: Progress Notes Filed: 10/20/2024 16:03 Note Text[facility] Date: October 20, 2024 - 1:56 PM Sonia Lara is seen in consultation requested by Fredo Ames for an opinion regarding chronic lower back pain. My final recommendations will be communicated back to the requesting physician by way of shared medical record or via US mail. Tata Chief Complaint: back pain SUBJECTIVE: Sonia Lara, is a 39 year old female who presents with lower back pain. The pain started years ago, with no known injury or trauma. She states that there has been some mild improvement in that during her and her last was 3 years ago. Over the last 3 years she states that her pain has gotten progressively worse.. The pain onset was gradual in nature. The patient states that the current pain is persistent. Her pain is located in the bilateral lumbar region and gluteal region and does not radiate.. // The pain is described as burning and sharp. The pain intensity is rated 3. The pain is exacerbated by being really active or prolonged sitting and relieved by heat, stretching, and medication (Tramadol). Symptoms interfere with sleeping. 100% pain in spine vs 0% (radiating) pain in the extremity. Litigation: No. Worker's Compensation: No. Prior pain treatment has included: Medication(s): Tramadol Physical therapy: 07/01/24-07/21/24 (4 sessions) at [facility] in [place] with no relief. Injection(s): None Surgery: None Patient Entered Questionnaires PROMIS Score Percentiles 01/02/2023 07/09/2023 07/01/2024 PROMIS Global Health Scale Physical Health Percentile 53 41 31 Mental Health Percentile 73 63 53 Proxy-reported 07/01/2024 07/07/2024 Physical Health Physical Function Percentile 50 Pain Interference Percentile 18* Proxy-reported Percentiles provide an indication of how the patient's score ranks in relation to the general population. Higher percentile rankings indicate better function/quality of life. 50th percentile is the average of the general population and indicates half of respondents had a worse score. > 31st percentile is within normal limits or better * < 31st percentile is at least ? SD worse than population, which may be clinically relevant < 16th percentile is at least 1 SD worse than population and warrants attention ALLERGIES Allergen Reactions Codeine Other: See Comments Nausea Lisinopril Cough Current Medications: Pain medications reviewed and reconciled in the medication list: Yes. Current Outpatient Medications Medication Sig ergocalciferol 50,000 unit capsule (VITAMIN D2, DRISDOL) TAKE 1 CAPSULE BY MOUTH ONCE A WEEK tirzepatide, weight loss (ZEPBOUND) 12.5 mg/0.5 mL pen injector Inject 12.5 mg subcutaneously one time a week. traZODone (DESYREL) 50 mg tablet Take 1 tablet by mouth daily at bedtime. sertraline (ZOLOFT) 100 mg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 therapeutic exercises was facilitated with verbal and visual cuing. Educated patient on rationale for performing exercises in regards to increase ease of ADL and ROM and function . Patient education as noted. PT in constant attendance during use of stationary bike to review current status, monitor effort throughout activity and adjust set up as needed for maximum therapeutic benefit. Billing Therapeutic Exercise Treatment Minutes: 42 Skilled Treatment Time Minutes (timed and untimed codes): 42 Total Session Time (minutes): 42 Session Start Time : 1335 Session Stop Time : 1417 Salvador Zhou, PT [facility] 07-14-2024 History of Present illness Narrative Episode Visit Count: 3 Therapist That Will Accept/Oversee The Plan Of Care: Yunior Zhou Start of Care Date: 07/01/24 Onset Date: 07/01/14 (chronic for at least 10 years, worse over the past year) REHABILITATION AND SPORTS THERAPY PHYSICAL THERAPY TREATMENT NOTE ASSESSMENT: Sonia Lara tolerated the session with no issues. She demonstrated improvements in core strength/stability but remains limited by chronic low back pain. The patient will continue to benefit from ongoing skilled physical therapy to progress toward set goals. PLAN FOR NEXT VISIT: continue to progress core strength, lumbar ROM & flexibility SUBJECTIVE: feeling ok currently but typically has increased LBP as the day progresses especially with more activity, was hurting pretty bad last night after a busy weekend. She's been taking tramadol on a daily basis for the past 2-3 months d/t increased low back pain. She thinks core muscles are stronger, says exercises seem a little easier but notes no difference/change with low back pain. Pain: Pain Pain Level: 2 Pain Location: Low Back/Lumbar Spine - Left, Low Back/Lumbar Spine - Right, Low Back/Lumbar Spine- Midline Description: Aching, Sharp Worst Pain Level: 10 OBJECTIVE MEASURES WITH LEVEL OF FUNCTION: Lumbar Spine AROM Lumbar Flexion: Minimal limitation, Increased pain, Pain during movement, End range pain (HS tightness with end-range flexion, LBP with return to extension) Lumbar Extension: Increased pain, Moderate limitation Lumbar R Side-Bend: Minimal limitation Lumbar L Side-Bend: Minimal limitation TREATMENT: Therapeutic Exercise: 1: Bike L5x10' 2: HS stretch long-sit R/L 3: hooklying abdominal crunches 30x 4: hooklying oblique crunches 10xR/L 5: PPU 10x 6: quadruped alt arm & leg 7: quadruped hip ext 20xR/L 8: notified pt of previous findings & recommendations by business analysis specialist several yrs ago which PT also relayed to PCP Skilled Intervention: Patient was educated in proper exercise technique and purpose for exercises. Skilled judgment was used in selection of appropriate interventions. Correct performance of therapeutic exercises was facilitated with verbal and visual cuing. Educated patient on rationale for performing exercises in regards to increase ease of ADL and ROM and function . Patient education as noted. PT in constant attendance during use of stationary bike to review current status, monitor effort throughout activity and adjust set up as needed for maximum therapeutic benefit. Billing Therapeutic Exercise Treatment Minutes: 42 Skilled Treatment Time Minutes (timed and untimed codes): 42 Total Session Time (minutes): 42 Session Start Time : 1335 Session Stop Time : 1417 Salvador Zhou PT documented in this encounter [facility] 07-07-2024 Note HNO ID: [id number] Author: SALVADOR ZHOU PT Service: ? Author Type: Physical Therapist Type: Progress Notes Filed: 07/07/2024 15:09 Note Text: Episode Visit Count: 2 Therapist That Will Accept/Oversee The Plan Of Care: Yunior Zhou Start of Care Date: 07/01/24 Onset Date: 07/01/14 (chronic for at least 10 years, worse over the past year) REHABILITATION AND SPORTS THERAPY PHYSICAL THERAPY TREATMENT NOTE ASSESSMENT: Sonia Lara tolerated the session with decreased symptoms and expected muscle soreness. She demonstrated difficulty with B glut weakness and increased low back pain with various exercises. The patient will continue to benefit from ongoing skilled physical therapy to progress toward set goals. PLAN FOR NEXT VISIT: continue to progress core strength, lumbar ROM AND flexibility SUBJECTIVE: feeling pretty good today with minimal LBP. although felt a little worse after PT (singh from prone exercises) She plans to f/u with PCP in a few weeks (may get MRI). Pt says they discussed possible pain mgmt but she wasn't actually referred . Pain: Pain Pain Level: 2 Pain Location: Low Back/Lumbar Spine - Left, Low Back/Lumbar Spine - Right, Low Back/Lumbar Spine- Midline Worst Pain Level: 10 Post Treatment Pain Post Treatment Pain Level: Worse OBJECTIVE MEASURES WITH LEVEL OF FUNCTION: Lumbar Spine AROM Lumbar Flexion: Minimal limitation, Pain during movement, Aberrant movement present LE Strength R Hip Extension: 4-/5 L Hip Extension: 4-/5 TREATMENT: Therapeutic Exercise: 1: HS stretch R/L (LBP with L HS stretch) 2: HS stretch long-sit R/L (increased tightness R vs L) 3: hooklying abdominal crunches 30x 4: hooklyling double leg lift 10x (pt reported grinding/rubbing in back) 5: hooklying alt leg lift 20x 6: quadruped alt leg lift 10xR/L (increased difficulty with R vs L hip ext) 7: *LEVI hip ext/SLR 3#R/L 30xea (increased LBP with prone SLR, better with LEVI) 8: PPU 5x, prone back ext 5x (both with increased back pain) 9: bridging 10x, SL 10xL, 2-3xR (increased LBP with R SL bridge) Skilled Intervention: Patient was educated in proper exercise technique and purpose for exercises. Reviewed and educated patient on additions/changes for home exercise program as above (*). Correct performance of therapeutic exercises was facilitated with verbal and visual cuing. Educated patient on rationale for performing exercises in regards to ROM and function . Patient education as noted. Billing Therapeutic Exercise Treatment Minutes: 46 Skilled Treatment Time Minutes (timed and untimed codes): 46 Total Session Time (minutes): 46 Session Start Time : 1253 Session Stop Time : 1339 Salvador Zhou, PT [facility] 07-07-2024 History of Present illness Narrative Episode Visit Count: 2 Therapist That Will Accept/Oversee The Plan Of Care: Yunior Zhou Start of Care Date: 07/01/24 Onset Date: 07/01/14 (chronic for at least 10 years, worse over the past year) REHABILITATION AND SPORTS THERAPY PHYSICAL THERAPY TREATMENT NOTE ASSESSMENT: Sonia Lara tolerated the session with decreased symptoms and expected muscle soreness. She demonstrated difficulty with B glut weakness and increased low back pain with various exercises. The patient will continue to benefit from ongoing skilled physical therapy to progress toward set goals. PLAN FOR NEXT VISIT: continue to progress core strength, lumbar ROM & flexibility SUBJECTIVE: feeling pretty good today with minimal LBP. although felt a little worse after PT (singh from prone exercises) She plans to f/u with PCP in a few weeks (may get MRI). Pt says they discussed possible pain mgmt but she wasn't actually referred . Pain: Pain Pain Level: 2 Pain Location: Low Back/Lumbar Spine - Left, Low Back/Lumbar Spine - Right, Low Back/Lumbar Spine- Midline Worst Pain Level: 10 Post Treatment Pain Post Treatment Pain Level: Worse OBJECTIVE MEASURES WITH LEVEL OF FUNCTION: Lumbar Spine AROM Lumbar Flexion: Minimal limitation, Pain during movement, Aberrant movement present LE Strength R Hip Extension: 4-/5 L Hip Extension: 4-/5 TREATMENT: Therapeutic Exercise: 1: HS stretch R/L (LBP with L HS stretch) 2: HS stretch long-sit R/L (increased tightness R vs L) 3: hooklying abdominal crunches 30x 4: hooklyling double leg lift 10x (pt reported grinding/rubbing in back) 5: hooklying alt leg lift 20x 6: quadruped alt leg lift 10xR/L (increased difficulty with R vs L hip ext) 7: *LEVI hip ext/SLR 3#R/L 30xea (increased LBP with prone SLR, better with LEVI) 8: PPU 5x, prone back ext 5x (both with increased back pain) 9: bridging 10x, SL 10xL, 2-3xR (increased LBP with R SL bridge) Skilled Intervention: Patient was educated in proper exercise technique and purpose for exercises. Reviewed and educated patient on additions/changes for home exercise program as above (*). Correct performance of therapeutic exercises was facilitated with verbal and visual cuing. Educated patient on rationale for performing exercises in regards to ROM and function . Patient education as noted. Billing Therapeutic Exercise Treatment Minutes: 46 Skilled Treatment Time Minutes (timed and untimed codes): 46 Total Session Time (minutes): 46 Session Start Time : 1253 Session Stop Time : 1339 Salvador Zhou PT documented in this encounter [facility] 07-01-2024 Note HNO ID: [id number] Author: SALVADOR ZHOU PT Service: ? Author Type: Physical Therapist Type: Progress Notes Filed: 07/07/2024 15:09 Note Text: Episode Visit Count: 1 Therapist That Will Accept/Oversee The Plan Of Care: Yunior Zhou Start of Care Date: 07/01/24 Onset Date: 07/01/14 (chronic for at least 10 years, worse over the past year) Patient Identified by Name and Date of : Yes REHABILITATION AND SPORTS THERAPY PHYSICAL THERAPY EVALUATION PLAN OF CARE: Assessment: Sonia Lara presents with chief complaint AND diagnosis of chronic low back pain that interferes with physical activities, lifting, sleeping . The patient presents with impairments in ADL's, flexibility, independence in exercise, overall function, strength, and symptom management. PROMIS? (Patient-Reported Outcomes Measurement Information System) scores were reviewed and identified as a rehabilitation concern. Prognosis for therapy is Fair due to: clinical presentation, chronic nature of impairments, poor past response to therapy intervention . She had recent Xray which showed osteophytes and mild degenerative changes. The patient will benefit from skilled therapy services to meet the goals established for this plan of care as noted below. Classification Pain Mechanism Classification: Nociceptive Low Back Pain Classification: Movement Control Goals for Episode of Care: established 07/01/24 Patient reported outcome of pain Interference will decrease T -score by a minimum of 5 points. Independent in home exercises. Patient will decrease pain rating by 2 points to meet minimal clinical important difference for numeric pain rating scale. Restore pain-free lumbar ROM to wnl to allow for improved ADLs. Sit/stand 2 hours without pain/symptoms to allow for improved work tasks. Knowledgeable regarding prophylaxis. Patient will increase strength of abdominals AND back extensors to 4+/5 to allow for improve gait mechanics/gait pattern and improve ability to complete ADLs. Patient Goals: eliminate some pain, get better motion Time Frame for Goals and Treatment : 08/15/24 Planned Interventions, Frequency, and Duration: Current Frequency: 1x/week Duration: 6 weeks Total Number of Visits Planned: 6 Planned Treatment Interventions: Therapeutic exercise (68889), Therapeutic activities (11215), Patient/Family/Caregiver Education, Body Mechanics Training PLAN FOR NEXT VISIT: address core strength, lumbar ROM AND flexibility Patient demonstrates good understanding of plan of care and treatment. The above goals and plan of care were discussed and agreed upon by patient/family. SUBJECTIVE: pt reports chronic LBP for several years. denies LE pain or radicular symptoms. currently takes tramadol routinely (as prescribed by PCP), tries heat/ice, occasional massages. She had a recent Xray, reports potential plans for MRI. She has not tried pain management but she did see a business analysis specialist/surgeon several years ago after having lumbar MRI, however pt was at the time so no intervention was planned. 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)) [employer] Occupation: [employer] Recreation / Current Exercise: stretching AND walking Home Environment Patient Lives With: Spouse, Family Intake Information: Prescription present Previous Treatment: Physical Therapy , Pain meds , Muscle relaxer , Heat , Ice Spine History Symptoms Location at Onset: Back Symptoms Since Onset: Worsening Pain is Worse Always: Prolonged positions, As the day progresses, PM Pain is Better Sometimes: AM, Rest, On the Move, Walking Previous Episodes: Yes Sleeping Position: Supine, Side lying right, Side lying left Sleep Affected by Pain: Pain keeps from falling asleep Pain: Pain Pain Level: 2 Pain Location: Low Back/Lumbar Spine - Left, Low Back/Lumbar Spine - Right, Low Back/Lumbar Spine- Midline Description: Aching, Sharp, Throbbing Frequency: Continuous Detailed Pain Score: Yes Worst Pain Level: 10 Best Pain Level: 1 Post Treatment Pain Post Treatment Pain Level: Worse Post Treatment Pain Description: Sore PROMIS Scales 07/07/2024 07/01/2024 Higher is Better Phys Func - T Score 50 (within normal limits) Phys Func - Percentile 50 Self-Eff Symptom - T Score 46 (Average) Self-Eff Symptom - Percentile 34 Proxy-reported 07/01/2024 Lower is Better Pain Interference - T Score 59 (mild) Pain Interference - Percentile 18 Proxy-reported T-scores: mean of general population = 50. 5 points is clinically meaningfully difference Percentiles provide a (more content not included)... [facility] 07-01-2024 History of Present illness Narrative Images from the original note were not included. Episode Visit Count: 1 Therapist That Will Accept/Oversee The Plan Of Care: Yunior Zhou Start of Care Date: 07/01/24 Onset Date: 07/01/14 (chronic for at least 10 years, worse over the past year) Patient Identified by Name and Date of : Yes REHABILITATION AND SPORTS THERAPY PHYSICAL THERAPY EVALUATION PLAN OF CARE: Assessment: Sonia Lara presents with chief complaint & diagnosis of chronic low back pain that interferes with physical activities, lifting, sleeping . The patient presents with impairments in ADL's, flexibility, independence in exercise, overall function, strength, and symptom management. PROMIS (Patient-Reported Outcomes Measurement Information System) scores were reviewed and identified as a rehabilitation concern. Prognosis for therapy is Fair due to: clinical presentation, chronic nature of impairments, poor past response to therapy intervention . She had recent Xray which showed osteophytes and mild degenerative changes. The patient will benefit from skilled therapy services to meet the goals established for this plan of care as noted below. Classification Pain Mechanism Classification: Nociceptive Low Back Pain Classification: Movement Control Goals for Episode of Care: established 07/01/24 Patient reported outcome of pain Interference will decrease T -score by a minimum of 5 points. Independent in home exercises. Patient will decrease pain rating by 2 points to meet minimal clinical important difference for numeric pain rating scale. Restore pain-free lumbar ROM to wnl to allow for improved ADLs. Sit/stand 2 hours without pain/symptoms to allow for improved work tasks. Knowledgeable regarding prophylaxis. Patient will increase strength of abdominals & back extensors to 4+/5 to allow for improve gait mechanics/gait pattern and improve ability to complete ADLs. Patient Goals: eliminate some pain, get better motion Time Frame for Goals and Treatment : 08/15/24 Planned Interventions, Frequency, and Duration: Current Frequency: 1x/week Duration: 6 weeks Total Number of Visits Planned: 6 Planned Treatment Interventions: Therapeutic exercise (18498), Therapeutic activities (06831), Patient/Family/Caregiver Education, Body Mechanics Training PLAN FOR NEXT VISIT: address core strength, lumbar ROM & flexibility Patient demonstrates good understanding of plan of care and treatment. The above goals and plan of care were discussed and agreed upon by patient/family. SUBJECTIVE: pt reports chronic LBP for several years. denies LE pain or radicular symptoms. 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: [employer] Recreation / Current Exercise: stretching & walking Home Environment Patient Lives With: Spouse, Family Intake Information: Prescription present Previous Treatment: Physical Therapy , Pain meds , Muscle relaxer , Heat , Ice Spine History Symptoms Location at Onset: Back Symptoms Since Onset: Worsening Pain is Worse Always: Prolonged positions, As the day progresses, PM Pain is Better Sometimes: AM, Rest, On the Move, Walking Previous Episodes: Yes Sleeping Position: Supine, Side lying right, Side lying left Sleep Affected by Pain: Pain keeps from falling asleep Pain: Pain Pain Level: 2 Pain Location: Low Back/Lumbar Spine - Left, Low Back/Lumbar Spine - Right, Low Back/Lumbar Spine- Midline Description: Aching, Sharp, Throbbing Frequency: Continuous Detailed Pain Score: Yes Worst Pain Level: 10 Best Pain Level: 1 Post Treatment Pain Post Treatment Pain Level: Worse Post Treatment Pain Description: Sore PROMIS Scales 07/01/2024 Higher is Better Self-Eff Symptom - T Score 46 (Average) Self-Eff Symptom - Percentile 34 Proxy-reported 07/01/2024 Lower is Better Pain Interference - T Score 59 (mild) Pain Interference - Percentile 18 Proxy-reported T-scores: mean of general population = 50. 5 points is clinically meaningfully difference Percentiles provide an indication of how the patient's score ranks in relation to the general population. Higher percentile rankings indicate better function/quality of life. 50th percentile is the average of the general population and indicates half of respondents had a worse score. OBJECTIVE MEASURES WITH LEVEL OF FUNCTION: Spine Observations R Lumbar Spine Palpation Tenderness: Spinous process L Lumbar Spine Palpation Tenderness: Spinous process Sensation - Lumbar Sensation: Grossly Intact Lumbar Spine AROM Lumbar Flexion: Minimal limitation, Pain during movement, Aberrant movement present (tightness in LB & HS, LBP with return to extension) Lumbar Extension: Minimal limitation, Increased pain, Pain during movement Lumbar R Side-Bend: Minimal limitation, Increased pain Lumbar L Side-Bend: Minimal limitation, Increased pain Lumbar Spine AROM Comments: mild LBP, singh with transitioning from flexion to extension, but no LE pain or radicular symptoms LE Flexibility Flexibility: Hamstring Flexibility, Hip Flexor Flexibility R Hamstring Flexibility: mild tightness ~ 90 degrees SLR L Hamstring Flexibility: mild tightness ~ 90 degrees SLR R Hip Flexor Flexibility: mild tightness L Hip Flexor Flexibility: mild tightness LE Strength Trunk Strength: abdominal (upper & lower) & back extensor weakness grossly 3- to 3/5 R LE Strength: grossly 4+ to 5/5 L LE Strength: grossly 4+ to 5/5 Special Tests - Hip and Spine Hip and Spine Special Tests: SLR Test, ROSALBA Test, FADDIR Test, Prone Instability Test, Active SLR SLR Test: Right Negative, Left Negative Prone Instability Test: Positive ROSALBA Test: Right Negative, Left Negative FADDIR Test: Right Negative, Left Negative Active SLR: Right Negative, Left Negative Education: Education Barriers: Pain level Learning/educational needs: Lifestyle changes, Health promotion, Home exercise program, Plan of Care, Posture, Body Mechanics Education Provided: Yes, see treatment interventions for education provided Education Provided To: Patient Education Mode/Type: Demonstration, Explanation/Discussion, Performance Response to Education/Teach Back: States/Identifies, Return Demonstration, Requires Review/Additional Education TREATMENT: [facility]: Low Back Pain PT Treatment Interventions: Therapeutic Exercise Evaluation Therapeutic Exercise: 1: *hooklying abdominal crunches 10x 2: *hooklying oblique crunches 10xR/L 3: *HS stretch long-sit/standing R/L (did better with standing stretch) 4: *standing hip flexor stretch R/L 5: bridging attempted with increased LBP 6: hooklying double leg lift/alt leg lift attempted with increased LBP Skilled Intervention: Patient was educated in proper exercise technique and purpose for exercises. Reviewed and educated patient on additions/changes for home exercise program as above (*). Skilled judgment was used in selection of appropriate interventions. Correct performance of therapeutic exercises was facilitated with verbal, visual, and tactile cuing. Educated patient on rationale for performing exercises in regards to increase ease of ADL and ROM and function. Patient education as noted. Billing * Evaluation Low Complexity: 1 Unit Therapeutic Exercise Treatment Minutes: 25 Skilled Treatment Time Minutes (timed and untimed codes): 56 Total Session Time (minutes): 56 Session Start Time : 1001 Session Stop Time : 1057 Salvador Zhou PT documented in this encounter [facility] 06-17-2024 Note HNO ID: [id number] Author: FARHEEN ALMENDAREZ APRN.FRUIT HARVESTER Service: ? Author Type: Nurse Practitioner Type: Progress Notes Filed: 06/17/2024 11:13 Note Text: Subjective Sonia Lara is a 38 year old female here today for follow-up chronic back pain. I reviewed past medical, surgical, social, and family histories today and updated chart. Allergies, chronic medications, and supplements were also reviewed. HPI Back Pain: - Reports worsening back pain since last visit in March. - Pain is more constant, requiring increased use of tramadol BID. - Has a history of an MRI in 2019. - No leg or foot weakness, dragging, numbness, or tingling. - Has been receiving massages at [facility] for 10 years. - First physical therapy appointment scheduled. Obesity: - Currently on tirzepatide, recently increased to 12.5 mg. - Accidentally took a double dose last week; no adverse effects reported. - No abdominal pain or constipation. 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 Katz, Hemangioma of liver Infertility, female Obesity PCOS (polycystic ovarian syndrome) depression 01/05/2020 Primary hypertension 02/28/2022 Seasonal allergies PAST SURGICAL HISTORY Procedure Laterality Date BARIATRIC SURGERY HX 12/13/[address] Katz SNGL 04/12/2019 C/S low transverse CAUTERY CERVIX CRYOCAUTERY INITIAL/REPEAT 2006 DELIVERY ONLY 05/17/2021 LTCS DANDC SUCTION 06/22/2020 incomplete ab HERNIA REPAIR HX REVISION OF FOOT BONES Left 02/07/2013 Ganglion Cyst/Bone Spur removed, Bone shaved. Left Foot Dr. Pickard SALPINGECTOMY Bilateral 05/17/2021 at second c/s TONSILLECTOMY HX ALLERGIES Codeine and Lisinopril MEDICATIONS sertraline (ZOLOFT) 50 mg tablet Take 1 tablet by mouth once daily. levothyroxine (SYNTHROID) 100 mcg tablet Take 1 tablet by mouth once daily. tirzepatide, weight loss (ZEPBOUND) 7.5 mg/0.5 mL pen injector Inject 7.5 mg subcutaneously one time a week. omeprazole (PRILOSEC) 40 mg capsule TAKE 1 CAPSULE BY MOUTH EVERY DAY levonorgestrel (MIRENA) 21 mcg/24 hours (8 yrs) 52 mg IUD 1 Each by INTRAUTERINE route as directed. albuterol HFA (PROVENTIL HFA, VENTOLIN HFA) 90 mcg/actuation inhaler Inhale 2 Puffs as instructed every 4 hours as needed for wheezing/shortness of breath. clotrimazole (LOTRIMIN, CLOTRIM) 1 % cream APPLY TO AFFECTED AREA TWICE A DAY FAMILY HISTORY Problem Relation Age of Onset other (Diabetes mellitus) Father other (Thyroid disorder) Father Rheumatologic disease Mother other (Endometriosis) Mother other (fibromyalgia) Mother No Known Problems Brother Colon Cancer Paternal Grandfather No Known Problems Brother Rheumatologic disease Maternal Grandmother Cancer Maternal Grandfather Lung- Mesothelioma Social History Tobacco Use Smoking status: Never Smokeless tobacco: Never Vaping Use Vaping status: Never Used Substance Use Topics Alcohol use: Not Currently Comment: monthy use Drug use: Never Review of Systems Constitutional: Positive for fatigue. Negative for appetite change, chills, fever and unexpected weight change. HENT: Negative for congestion, ear pain, rhinorrhea and sore throat. Eyes: Negative for pain, discharge, itching and visual disturbance. Respiratory: Negative for cough, shortness of breath and wheezing. Cardiovascular: Negative for chest pain, palpitations and leg swelling. Gastrointestinal: Negative for abdominal pain, constipation, diarrhea, nausea and vomiting. Genitourinary: Negative for difficulty urinating. Musculoskeletal: Positive for back pain. Skin: Negative for rash. Neurological: Negative for dizziness, tremors, weakness and headaches. Psychiatric/Behavioral: Negative for dysphoric mood and sleep disturbance. The patient is not nervous/anxious. Objective BP 122/76 Pulse 64 Temp (Src) 98 (Oral) Resp 19 Ht 5' 4.02 (1.63m) Wt 270 lb (122.5kg) SpO2 98% LMP 07/13/2023 BMI 46.32 kg/(m2). Physical Exam Constitutional: General: She is not in acute distress. Appearance: Normal appearance. HENT: Head: Normocephalic and atraumatic. Mouth/Throat: Lips: [place]. Eyes: General: Lids are normal. Extraocular Movements: Extraocular movements intact. Conjunctiva/sclera: Conjunctivae normal. Pupils: Pupils are equal. Cardiovascular: Rate and Rhythm: Normal rate and regular rhythm. Heart sounds: Normal heart sounds. No murmur heard. (more content not included)... [facility] 06-17-2024 History of Present illness Narrative Subjective Sonia Lara is a 38 year old female here today for follow-up chronic back pain. I reviewed past medical, surgical, social, and family histories today and updated chart. Allergies, chronic medications, and supplements were also reviewed. HPI Back Pain: - Reports worsening back pain since last visit in March. - Pain is more constant, requiring increased use of tramadol BID. - Has a history of an MRI in 2019. - No leg or foot weakness, dragging, numbness, or tingling. - Has [place] [facility] [place]. - First physical therapy appointment scheduled. Obesity: - Currently on tirzepatide, recently increased to 12.5 mg. - Accidentally took a double dose last week; no adverse effects reported. - No abdominal pain or constipation. 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 Katz, Hemangioma of liver Infertility, female Obesity PCOS (polycystic ovarian syndrome) depression 01/05/2020 Primary hypertension 02/28/2022 Seasonal allergies PAST SURGICAL HISTORY Procedure Laterality Date BARIATRIC SURGERY HX 12/13/[address] Katz SNGL 04/12/2019 C/S low transverse CAUTERY CERVIX CRYOCAUTERY INITIAL/REPEAT 2006 DELIVERY ONLY 05/17/2021 LTCS D&C SUCTION 06/22/2020 incomplete ab HERNIA REPAIR HX REVISION OF FOOT BONES Left 02/07/2013 Ganglion Cyst/Bone Spur removed, Bone shaved. Left Foot Dr. Pickard SALPINGECTOMY Bilateral 05/17/2021 at second c/s TONSILLECTOMY HX ALLERGIES Codeine and Lisinopril MEDICATIONS sertraline (ZOLOFT) 50 mg tablet Take 1 tablet by mouth once daily. levothyroxine (SYNTHROID) 100 mcg tablet Take 1 tablet by mouth once daily. tirzepatide, weight loss (ZEPBOUND) 7.5 mg/0.5 mL pen injector Inject 7.5 mg subcutaneously one time a week. omeprazole (PRILOSEC) 40 mg capsule TAKE 1 CAPSULE BY MOUTH EVERY DAY levonorgestrel (MIRENA) 21 mcg/24 hours (8 yrs) 52 mg IUD 1 Each by INTRAUTERINE route as directed. albuterol HFA (PROVENTIL HFA, VENTOLIN HFA) 90 mcg/actuation inhaler Inhale 2 Puffs as instructed every 4 hours as needed for wheezing/shortness of breath. clotrimazole (LOTRIMIN, CLOTRIM) 1 % cream APPLY TO AFFECTED AREA TWICE A DAY FAMILY HISTORY Problem Relation Age of Onset other (Diabetes mellitus) Father other (Thyroid disorder) Father Rheumatologic disease Mother other (Endometriosis) Mother other (fibromyalgia) Mother No Known Problems Brother Colon Cancer Paternal Grandfather No Known Problems Brother Rheumatologic disease Maternal Grandmother Cancer Maternal Grandfather Lung- Mesothelioma Social History Tobacco Use Smoking status: Never Smokeless tobacco: Never Vaping Use Vaping status: Never Used Substance Use Topics Alcohol use: Not Currently Comment: monthy use Drug use: Never Review of Systems Constitutional: Positive for fatigue. Negative for appetite change, chills, fever and unexpected weight change. HENT: Negative for congestion, ear pain, rhinorrhea and sore throat. Eyes: Negative for pain, discharge, itching and visual disturbance. Respiratory: Negative for cough, shortness of breath and wheezing. Cardiovascular: Negative for chest pain, palpitations and leg swelling. Gastrointestinal: Negative for abdominal pain, constipation, diarrhea, nausea and vomiting. Genitourinary: Negative for difficulty urinating. Musculoskeletal: Positive for back pain. Skin: Negative for rash. Neurological: Negative for dizziness, tremors, weakness and headaches. Psychiatric/Behavioral: Negative for dysphoric mood and sleep disturbance. The patient is not nervous/anxious. Objective BP 122/76 Pulse 64 Temp (Src) 98 (Oral) Resp 19 Ht 5' 4.02 (1.63m) Wt 270 lb (122.5kg) SpO2 98% LMP 07/13/2023 BMI 46.32 kg/(m^2). Physical Exam Constitutional: General: She is not in acute distress. Appearance: Normal appearance. HENT: Head: Normocephalic and atraumatic. Mouth/Throat: Lips: [place]. Eyes: General: Lids are normal. Extraocular Movements: Extraocular movements intact. Conjunctiva/sclera: Conjunctivae normal. Pupils: Pupils are equal. Cardiovascular: Rate and Rhythm: Normal rate and regular rhythm. Heart sounds: Normal heart sounds. No murmur heard. Pulmonary: Effort: Pulmonary effort is normal. No respiratory distress. Breath sounds: Normal breath sounds. Musculoskeletal: Right lower leg: No edema. Left lower leg: No edema. Skin: General: Skin is warm and dry. Findings: No rash. Neurological: General: No focal deficit present. Mental Status: She is alert and oriented to person, place, and time. Cranial Nerves: No cranial nerve deficit. Motor: Motor function is intact. Coordination: Coordination normal. Gait: Gait is intact. Psychiatric: Attention and Perception: Attention and perception normal. Mood and Affect: Mood and affect normal. Behavior: Behavior normal. Behavior is cooperative. Patient Info Patient Name Sex Sonia Holliday ([id number]) Female 1985 04/23/2024 9:01 PM - Radiology, [place] In Impression IMPRESSION: LIMBUS VERTEBRA AT L4. PROMINENT LORDOSIS. DEGENERATIVE DISC DISEASE AT L3/L4 SMALL CALCIFICATION AT L4-5 DISC LEVEL QUESTIONABLE CALCIFIED HERNIATED DISC. Men'S Swim Coach: JUAN Transcribe Date/Time: Apr 23 2024 8:54P Dictated by : ROSINA ORDONEZ MD This examination was interpreted and the report reviewed and electronically signed by: ROSINA ORDONEZ MD on Apr 23 2024 8:59PM EST Results-Findings * * *Final Report* * * DATE OF EXAM: Apr 22 2024 9:53AM LDX [id number] - XR LUMBAR PARS 4V AP/LAT/OBL X2 / PROCEDURE REASON: multiple diagnoses * * * * Physician Interpretation * * * * EXAM: LUMBAR SPINE, 4 VIEWS CLINICAL: 38-year-old female, evaluate for degeneration of intervertebral disc, chronic bilateral low back pain with sciatica on the right TECHNIQUE: AP, lateral, obliques COMPARISON: None RESULTS: Counting reference: Anatomic Variant: None. L4-5 is considered the level of the iliac crest and assume there are 5 lumbar-type vertebrae. Prominent lumbar lordosis. Limbus vertebrae at L4. Vertebral bodies and pedicles are otherwise intact. Osteophytes throughout the lumbar spine anteriorly. Minimal retrolisthesis of L2 on L3 and L3 on L4. There is a small calcification posteriorly at the L4/L5 disc level is curvilinear appearance and small may represent a small calcified herniated disc. Facet degenerative changes at L5/S1. Pars articular intact. ASSESSMENT/PLAN: 1. Chronic midline low back pain without sciatica - ICD9: 724.2, 338.29, ICD10: M54.50, G89.29 - Pain is worsening and more constant; no new weakness, numbness, or tingling in the lower extremities. - Initiated physical therapy; advised to complete at least 4-6 sessions before follow-up. - Refilled Tramadol; instructed to use as needed, especially post-therapy sessions. - Previous MRI was in 2019; will consider ordering a new MRI after completion of physical therapy sessions. - Follow-up in 4-6 weeks to assess progress, potentially via virtual visit [facility] report from previous 12 months checked and validated. All prescriptions have been APPROPRIATELY filled. No suspicious activity was identified. Farheen Almendarez APRN.GRISELDA - TRAMADOL 50 MG TABLET 2. Class 3 severe obesity with serious comorbidity and body mass index (BMI) of 50.0 to 59.9 in adult, unspecified obesity type (HCC) - ICD9: 278.01, V85.43, ICD10: E66.813, E66.01, Z68.43 - Currently on tirzepatide, recently increased to 12.5 mg. - No adverse effects reported with the new dosage. - TIRZEPATIDE (WEIGHT LOSS) 12.5 MG/0.5 ML SUBCUTANEOUS PEN INJECTOR Farheen Almendarez APRN.GRISELDA The patient consented to the use of Index software for draft documentation of the visit consistent with [facility] s Notice of Privacy Practices. documented in this encounter [facility] 05-06-2024 History of Present illness Narrative Subjective Patient ID: Sonia Lara is a 38 y.o. female. They present today with a chief complaint of Illness (Cough, headache, eyes hurt, mild fever x 7 days). History of Present Illness Patient reports symptoms present for ~7 days Endorses sinus pain/pressure Endorses thick mucous discharge Endorses colored mucous - yellow Denies teeth discomfort Reports that they felt like they were getting better and then they got worse Notes proceeding cold like symptoms Reports trying the following without significant benefit - mucinex, OTC cold medications Reports hx of sinusitis and had similar sx that improved with abx - tolerated zpak in the past Past Medical History Allergies as of 05/06/2024 - Reviewed 05/06/2024 Allergen Reaction Noted Codeine Hives 06/29/2010 Lisinopril Cough 10/03/2023 (Not in a hospital admission) Past Medical History: Diagnosis Date Abnormal weight loss 03/07/2017 Rapid weight loss Body mass index (BMI) 50.0-59.9, adult (Multi) 03/29/2017 BMI 50.0-59.9, adult Personal history of other specified conditions History of postoperative nausea and vomiting Past Surgical History: Procedure Laterality Date OTHER SURGICAL HISTORY 06/17/2018 [place] tooth extraction OTHER SURGICAL HISTORY 06/17/2018 Laparoscopic adjustable gastric banding OTHER SURGICAL HISTORY 06/17/2018 Foot surgery TONSILLECTOMY 08/22/2016 Tonsillectomy reports that she has never smoked. She has never used smokeless tobacco. Objective Vitals: 05/06/24 1441 BP: 112/77 Pulse: 81 Resp: 16 Temp: 36.6 C (97.8 F) SpO2: 97% Weight: 122 kg (270 lb) No LMP recorded. Physical Exam Constitutional: General: She is not in acute distress. Appearance: Normal appearance. She is not toxic-appearing or diaphoretic. HENT: Head: Comments: Slight ttp along the right maxillary sinus area Right Ear: Tympanic membrane, ear canal and external ear normal. There is no impacted cerumen. Left Ear: Tympanic membrane, ear canal and external ear normal. There is no impacted cerumen. Nose: No rhinorrhea. Eyes: General: No scleral icterus. Right eye: No discharge. Left eye: No discharge. Extraocular Movements: Extraocular movements intact. Pulmonary: Effort: Pulmonary effort is normal. Musculoskeletal: Cervical back: Normal range of motion. Neurological: Mental Status: She is alert. Psychiatric: Mood and Affect: Mood normal. Behavior: Behavior normal. Thought Content: Thought content normal. Comments: Pleasant Procedures Point of Care Test & Imaging Results from this visit: Diagnostic study results (if any) were reviewed by Royce Landers MD. Assessment/Plan Allergies, medications, history, and pertinent labs/EKGs/Imaging reviewed by Royce Landers MD. Medical Decision Making: Patient's symptoms likely 2/2 viral sinusitis vs less likely bacterial sinusitis. Rapid FLU and COVID are neg. Supportive care with NSAIDs/Tylenol, mucinex, and intranasal steroids/nasal saline. Will provide antibiotic script for patient to start taking after 10 days from the start of symptoms. Follow up with PCP or UC if symptoms fail to improve. ER if symptoms worsen Orders and Diagnoses Diagnoses and all orders for this visit: Acute maxillary sinusitis, recurrence not specified - POCT Covid-19 Rapid Antigen - POCT Influenza A/B manually resulted - azithromycin (Zithromax) 250 mg tablet; Please follow Z-priyanka package instructions Patient disposition: Home Medical Admin Record Follow Up Instructions No follow-ups on file. Electronically signed by Royce Landers MD 3:07 PM documented in this encounter [facility] Work Phone: 04-28-2024 Telephone encounter Note Patient notified. Mary Rose MA [facility] 04-28-2024 Miscellaneous Notes Patient notified. Mary Rose MA ----- Message from Farheen Almendarez APRN.CNP sent at 04/27/2024 11:43 PM EST ----- Degenerative disc disease, small calcification at L4-5 possible calcified herniated disc. Continue with plan for PT. Farheen Almendarez APRN.CNP documented in this encounter [facility] 04-28-2024 Telephone encounter Note ----- Message from Farheen Almendarez APRN.CNP sent at 04/27/2024 11:43 PM EST ----- Degenerative disc disease, small calcification at L4-5 possible calcified herniated disc. Continue with plan for PT. Farheen Almendarez APRN.FRUIT HARVESTER [facility] 04-22-2024 History of Present illness Narrative Radiology Service Progress Note PATIENT NAME: Sonia Lara DATE OF SERVICE: April 22, 2024 TIME: 9:51 AM PATIENT IDENTITY VERIFICATION COMPLETED USING TWO (2) IDENTIFIERS: Name and Date of confirmed by patient verbally and Name and Date of confirmed by identification band. FALL SCREENING: Has the patient had 2 falls in the last year or 1 fall with injury or currently using an Ambulatory Assistive Device (Walker, Cane, Wheelchair, Crutches, etc.)? No PATIENT GENDER DATA: Assigned female at . status: : No status: NO. PATIENT RELEVANT IMPLANT DATA REVIEWED: Not Applicable PATIENT PRESENTS WITH AN IMPLANTABLE OR ATTACHED MEN'S SWIM COACH: No RADIOLOGY DEPARTMENT: General X-ray: Exam(s) Completed: Spine X-Ray(s): Lumbar AP / LAT / L5-S1 / OBL PERIPHERAL IV DATA: Not applicable SIGNED BY: RT Siena(Amie) April 22, 2024 9:51 AM documented in this encounter [facility] 04-22-2024 Note HNO ID: [id number] Author: ESPERANZA PRADHAN RT(R) Service: Radiology Author Type: Technologist Type: Progress Notes Filed: 04/22/2024 09:51 Note Text: Radiology Service Progress Note PATIENT NAME: Sonia Lara DATE OF SERVICE: April 22, 2024 TIME: 9:51 AM PATIENT IDENTITY VERIFICATION COMPLETED USING TWO (2) IDENTIFIERS: Name and Date of confirmed by patient verbally and Name and Date of confirmed by identification band. FALL SCREENING: Has the patient had 2 falls in the last year or 1 fall with injury or currently using an Ambulatory Assistive Device (Walker, Cane, Wheelchair, Crutches, etc.)? No PATIENT GENDER DATA: Assigned female at . status: : No status: NO. PATIENT RELEVANT IMPLANT DATA REVIEWED: Not Applicable PATIENT PRESENTS WITH AN IMPLANTABLE OR ATTACHED MEN'S SWIM COACH: No RADIOLOGY DEPARTMENT: General X-ray: Exam(s) Completed: Spine X-Ray(s): Lumbar AP / LAT / L5-S1 / OBL PERIPHERAL IV DATA: Not applicable SIGNED BY: RT Siena(R) April 22, 2024 9:51 AM [facility] 04-15-2024 Telephone encounter Note pharm requesting refills: Last office visit 04/07/2024. Last refill 03/29/2023. Requested Prescriptions Pending Prescriptions Disp Refills sertraline (ZOLOFT) 50 mg tablet 90 tablet 1 Sig: Take 1 tablet by mouth once daily. levothyroxine (SYNTHROID) 100 mcg tablet 90 tablet 3 Sig: Take 1 tablet by mouth once daily. Please review and advise. Mary Rose MA [facility] 04-15-2024 Miscellaneous Notes pharm requesting refills: Last office visit 04/07/2024. Last refill 03/29/2023. Requested Prescriptions Pending Prescriptions Disp Refills sertraline (ZOLOFT) 50 mg tablet 90 tablet 1 Sig: Take 1 tablet by mouth once daily. levothyroxine (SYNTHROID) 100 mcg tablet 90 tablet 3 Sig: Take 1 tablet by mouth once daily. Please review and advise. Mary Rose MA documented in this encounter [facility] 04-07-2024 History of Present illness Narrative Subjective Sonia Lara is a 38 year old female here today for well adult exam. I reviewed past medical, surgical, social, and family histories today and updated chart. Allergies, chronic medications, and supplements were also reviewed. HPI Hypothyroidism - Continues levothyroxine Last Pap - 06/08/23 Normal Endometrial biopsy done June 2023 for AUB = Normal Exhausted all the time Does not sleep well Kids do not sleep through the night Evaluated for hyperparathyroidism recently, will have repeat labs in 3 months Depression, anxiety - currently on Zoloft 50 mg once a day and overall its helping, would like to stay at this dose Low back pain - chronic Really bad lately When she stands feels like something has to crack back into place before she can walk Taking the pain meds everyday now No numbness/tingling in the legs No weakness in the legs Occasionally has pain that radiates into legs - right now has some pain radiating into right buttocks Pain spans across the lower back Gets massage once a month and can't have much pressure or none at all Very tender tot the touch Has done PT for back in the past She does a lot of stretching at home, uses foam roller Still has tailbone pain Had lumbar spine MRI and saw neuro business analysis specialist but was newly at the time PAST MEDICAL HISTORY Diagnosis Date Abnormal Pap smear of cervix Acquired hypothyroidism - check TSH Amenorrhea, unspecified - pt to track periods and we will discuss at next visit Anemia complicating , third trimester 01/28/2019 Binge eating disorder Childhood asthma LES I (cervical intraepithelial neoplasia I) 2006 COVID-19 03/04/2020 With pneumonia Exercise-induced asthma 07/16/2019 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 Katz, Infertility, female Obesity PCOS (polycystic ovarian syndrome) depression 01/05/2020 Primary hypertension 02/28/2022 Seasonal allergies PAST SURGICAL HISTORY Procedure Laterality Date BARIATRIC SURGERY HX 12/13/[address] Katz SNGL 04/12/2019 C/S low transverse CAUTERY CERVIX CRYOCAUTERY INITIAL/REPEAT 2006 DELIVERY ONLY 05/17/2021 LTCS D&C SUCTION 06/22/2020 incomplete ab HERNIA REPAIR HX REVISION OF FOOT BONES Left 02/07/2013 Ganglion Cyst/Bone Spur removed, Bone shaved. Left Foot Dr. Pickard SALPINGECTOMY Bilateral 05/17/2021 at second c/s TONSILLECTOMY HX ALLERGIES Codeine and Lisinopril MEDICATIONS sertraline (ZOLOFT) 50 mg tablet Take 1 tablet by mouth once daily. levothyroxine (SYNTHROID) 100 mcg tablet Take 1 tablet by mouth once daily. omeprazole (PRILOSEC) 40 mg capsule TAKE 1 CAPSULE BY MOUTH EVERY DAY levonorgestrel (MIRENA) 21 mcg/24 hours (8 yrs) 52 mg IUD 1 Each by INTRAUTERINE route as directed. albuterol HFA (PROVENTIL HFA, VENTOLIN HFA) 90 mcg/actuation inhaler Inhale 2 Puffs as instructed every 4 hours as needed for wheezing/shortness of breath. clotrimazole (LOTRIMIN, CLOTRIM) 1 % cream APPLY TO AFFECTED AREA TWICE A DAY tirzepatide, weight loss (ZEPBOUND) 7.5 mg/0.5 mL pen injector Inject 7.5 mg subcutaneously one time a week. FAMILY HISTORY Problem Relation Age of Onset other (Diabetes mellitus) Father other (Thyroid disorder) Father Rheumatologic disease Mother other (Endometriosis) Mother other (fibromyalgia) Mother No Known Problems Brother Colon Cancer Paternal Grandfather No Known Problems Brother Rheumatologic disease Maternal Grandmother Cancer Maternal Grandfather Lung- Mesothelioma Social History Tobacco Use Smoking status: Never Smokeless tobacco: Never Vaping Use Vaping status: Never Used Substance Use Topics Alcohol use: Not Currently Comment: monthy use Drug use: Never Review of Systems Constitutional: Positive for fatigue. Negative for appetite change, chills, fever and unexpected weight change. HENT: Negative for congestion, ear pain, rhinorrhea and sore throat. Eyes: Negative for pain, discharge, itching and visual disturbance. Respiratory: Negative for cough, shortness of breath and wheezing. Cardiovascular: Negative for chest pain, palpitations and leg swelling. Gastrointestinal: Negative for abdominal pain, constipation, diarrhea, nausea and vomiting. Musculoskeletal: Positive for back pain. Negative for arthralgias. Skin: Negative for rash. Neurological: Negative for dizziness, tremors, weakness and headaches. Psychiatric/Behavioral: Positive for dysphoric mood and sleep disturbance. The patient is nervous/anxious. Objective BP 126/78 Pulse 77 Temp 98.4 Ht 5' 4.02 (1.63m) Wt 281 lb (127.5kg) SpO2 95% LMP 07/13/2023 BMI 48.21 kg/(m^2). Physical Exam Constitutional: Appearance: Normal appearance. She is well-developed. HENT: Head: Normocephalic and atraumatic. Right Ear: Hearing, tympanic membrane, ear canal and external ear normal. No drainage. Left Ear: Hearing, tympanic membrane, ear canal and external ear normal. No drainage. Nose: Nose normal. Mouth/Throat: Pharynx: Uvula midline. Eyes: General: Lids are normal. Right eye: No discharge. Left eye: No discharge. Conjunctiva/sclera: Conjunctivae normal. Pupils: Pupils are equal, round, and reactive to light. Neck: Thyroid: No thyromegaly. Vascular: No carotid bruit. Cardiovascular: Rate and Rhythm: Normal rate and regular rhythm. Heart sounds: Normal heart sounds. No murmur heard. Pulmonary: Effort: Pulmonary effort is normal. Breath sounds: Normal breath sounds. No wheezing, rhonchi or rales. Abdominal: General: Bowel sounds are normal. There is no distension or abdominal bruit. Palpations: Abdomen is soft. There is no mass. Tenderness: There is no abdominal tenderness. Musculoskeletal: Cervical back: Normal range of motion. Lumbar back: Tenderness present. Decreased range of motion. Right lower leg: No edema. Left lower leg: No edema. Lymphadenopathy: Cervical: No cervical adenopathy. Upper Body: Right upper body: No supraclavicular adenopathy. Left upper body: No supraclavicular adenopathy. Skin: General: Skin is warm and dry. Findings: No bruising or rash. Neurological: General: No focal deficit present. Mental Status: She is alert and oriented to person, place, and time. Cranial Nerves: No cranial nerve deficit. Sensory: Sensation is intact. Motor: Motor function is intact. Coordination: Coordination is intact. Gait: Gait is intact. Psychiatric: Attention and Perception: Attention and perception normal. Mood and Affect: Mood and affect normal. Speech: Speech normal. Behavior: Behavior normal. Behavior is cooperative. Thought Content: Thought content normal. Cognition and Memory: Cognition normal. Judgment: Judgment normal. Latest Ref [facility] 10/03/2023 02/08/2024 Protein, Total 6.3 - 8.0 g/dL 7.1 Albumin 3.9 - 4.9 g/dL 4.0 Calcium 8.5 - 10.2 mg/dL 10.4 (H) Bilirubin, Total 0.2 - 1.3 mg/dL 0.5 Alkaline Phosphatase 34 - 123 U/L 96 AST 13 - 35 U/L 20 ALT 7 - 38 U/L 25 Glucose 74 - 99 mg/dL 85 BUN 7 - 21 mg/dL 15 Creatinine 0.58 - 0.96 mg/dL 0.93 Sodium 136 - 144 mmol/L 138 Potassium 3.7 - 5.1 mmol/L 4.1 Chloride 98 - 107 mmol/L 104 CO2 22 - 30 mmol/L 26 Anion Gap 8 - 15 mmol/L 8 eGFR >=60 mL/min/1.73m 81 WBC 3.70 - 11.00 k/uL 7.77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 for chest pain, palpitations and leg swelling. Gastrointestinal: Negative for abdominal pain, constipation, diarrhea, nausea and vomiting. Genitourinary: Negative for difficulty urinating. Musculoskeletal: Negative for arthralgias. Skin: Negative for rash. Neurological: Negative for dizziness, tremors, weakness and headaches. Psychiatric/Behavioral: Positive for sleep disturbance. Negative for dysphoric mood. The patient is not nervous/anxious. Objective BP 124/76 Pulse 80 Temp 97.6 Resp 16 Ht 5' 4 (1.63m) Wt 285 lb (129.3kg) SpO2 98% LMP 07/13/2023 BMI 48.90 kg/(m^2). Physical Exam Constitutional: Appearance: Normal appearance. She is well-developed. She is not diaphoretic. HENT: Head: Normocephalic and atraumatic. Right Ear: Hearing, tympanic membrane, ear canal and external ear normal. Left Ear: Hearing, tympanic membrane, ear canal and external ear normal. Nose: Nose normal. Mouth/Throat: Lips: [place]. Mouth: Mucous membranes are moist. Pharynx: Oropharynx is clear. Eyes: General: Lids are normal. Conjunctiva/sclera: Conjunctivae normal. Pupils: Pupils are equal, round, and reactive to light. Neck: Vascular: Normal carotid pulses. No carotid bruit or JVD. Cardiovascular: Rate and Rhythm: Normal rate and regular rhythm. Pulses: Carotid pulses are 2+ on the right side and 2+ on the left side. Radial pulses are 2+ on the right side and 2+ on the left side. Dorsalis pedis pulses are 2+ on the right side and 2+ on the left side. Heart sounds: Normal heart sounds. No murmur heard. Pulmonary: Effort: Pulmonary effort is normal. Breath sounds: Normal breath sounds. No wheezing, rhonchi or rales. Abdominal: General: Bowel sounds are normal. Palpations: Abdomen is soft. Tenderness: There is no abdominal tenderness. Musculoskeletal: Cervical back: Normal range of motion. Right lower leg: No edema. Left lower leg: No edema. Lymphadenopathy: Cervical: No cervical adenopathy. Skin: General: Skin is warm and dry. Findings: No rash. Neurological: General: No focal deficit present. Mental Status: She is alert and oriented to person, place, and time. Cranial Nerves: No cranial nerve deficit. Sensory: Sensation is intact. Motor: Motor function is intact. Coordination: Coordination is intact. Gait: Gait is intact. Psychiatric: Attention and Perception: Attention and perception normal. Mood and Affect: Mood and affect normal. Speech: Speech normal. Behavior: Behavior normal. Behavior is cooperative. Thought Content: Thought content normal. Judgment: Judgment normal. Latest Ref [facility] 02/28/2023 WBC 3.70 - 11.00 k/uL 7.26 RBC 3.90 - 5.20 m/uL 5.16 Hemoglobin 11.5 - 15.5 g/dL 13.4 Hematocrit 36.0 - 46.0 % 43.5 MCV 80.0 - 100.0 fL 84.3 MCH 26.0 - 34.0 pg 26.0 MCHC 30.5 - 36.0 g/dL 30.8 RDW-CV 11.5 - 15.0 % 14.1 Platelet Count 150 - 400 k/uL 282 MPV 9.0 - 12.7 fL 9.6 Glucose 74 - 99 mg/dL 92 BUN 7 - 21 mg/dL 13 Creatinine 0.58 - 0.96 mg/dL 0.95 Sodium 136 - 144 mmol/L 139 Potassium 3.7 - 5.1 mmol/L 3.6 (L) Chloride 97 - 105 mmol/L 100 CO2 22 - 30 mmol/L 28 Anion Gap 9 - 18 mmol/L 11 Calcium 8.5 - 10.2 mg/dL 10.4 (H) eGFR >=60 mL/min/1.73m 79 Albumin 3.9 - 4.9 g/dL 4.1 Bilirubin, Total 0.2 - 1.3 mg/dL 0.6 Bilirubin, Conjug <0.2 mg/dL <0.2 Alkaline Phosphatase 34 - 123 U/L 88 AST 13 - 35 U/L 22 ALT 7 - 38 U/L 27 Protein, Total 6.3 - 8.0 g/dL 7.1 Iron 41 - 186 ug/dL 64 TIBC 232 - 386 ug/dL 390 (H) Transferrin Saturation 15.0 - 57.0 % 16.4 Ferritin 14.7 - 205.1 ng/mL 20.7 ASSESSMENT/PLAN: 1. Primary hypertension - ICD9: 401.9, ICD10: I10 (primary diagnosis) - Controlled Stopping lisinopril d/t cough - Recommend home blood pressure monitoring, to bring results to next visit - Encouraged sodium restriction, DASH or Mediterranean diet - Recommend regular aerobic exercise 2. Hypothyroidism, acquired - ICD9: 244.9, ICD10: E03.9 - Instructed patient on importance of taking on an empty stomach either first thing in the morning or at bedtime. 3. 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 Continue other medications (phentermine, topiramate) as taking. documented in this encounter [facility] 08-21-2023 History of Present illness Narrative Images from the original note were not included. [facility] VIRTUAL VISIT--FOLLOW-UP This is a virtual visit using [employer] Video Visit. It required patient-provider interaction for the medical decision making as documented below. I have communicated my name and active licensure. The patient's identity and physical location were verified at the time of this visit. Either the patient or their legal home office representative has been informed of the risks and benefits of -- and alternatives to -- treatment through a remote evaluation and consents to proceed with the evaluation remotely. HISTORY OF PRESENT ILLNESS: CC: medical weight loss Age: [age] year old female PMH: obesity s/p gastric sleeve 2017, PCOS, CORY, hypothyroidism, HTN, insulin resistance, exercise-induced asthma and fatty liver Patient's last appt in this department for weight loss: 07/09/23 Current weight loss medication: phentermine 37.5 mg 1/2 tablet daily; topiramate 50 mg; metformin 500 mg Side effects of treatment: none Current weight: 282.2 lbs Weight trend: decreasing Patient goal: 200 lbs 09/18/2022: 287 lbs (prescribed phentermine but didn't start until October) 10/24/2022: started phentermine but not sure of starting wt 11/06/2022: 293 lbs 01/02/2023: 282 lbs (added topiramate but never started) 02/20/2023: 276 lbs (added topiramate, took for a few months, tolerated) Stopped meds 04/202307/09/2023: 293 lbs (has been off phentermine for past 2 months since she hadn't had follow-up) 08/21/2023: 282.2 lbs Weight graph: Diet: -Appetite: curbed some -Trying to increase protein, veggies, trying to limit eating out -Eating at least 2 meals per day +/- breakfast 24 hour recall AM: Coffee, sometimes eggs or yogurt or cottage cheese 11 AM: chicken or ham and cheese wrap Sometimes will have a popsicle in afternoon with kids 5 PM: protein, veggies, potatoes Not snacking (rarely) Physical activity and exercise: Has a pelaton and treadmill--not really using Walking most days of the week outside Weight training with occasionally--wants to do more Sleep: Disrupted sleep schedule due to young children, works late into night few nights per week Getting 5 hours per night at most, not solid Gets up to go to bathroom 1-2 times per night Sometimes difficult time falling and maintaining sleep Mood, stress: Stress is high--work, personal/family Stable Social: with children 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 MEDICAL, FAMILY, and SOCIAL history reviewed and updated in chart ACTIVE PROBLEM LIST Hypothyroidism, Acquired Class 3 Severe Obesity With Serious Comorbidity and Body Mass Index (Bmi) of 50.0 to 59.9 in Adult (Hcc) Elevated C-Reactive Protein (Crp) Hyperglycemia Liver Mass Pcos (Polycystic Ovarian Syndrome) Obstructive Sleep Apnea Fatty (Change Of) Liver, Not Elsewhere Classified Ddd (Degenerative Disc Disease), Lumbar Paresthesia Chronic Midline Thoracic Back Pain History of Chronic Back Pain History of Bariatric Surgery History of Hypothyroidism Exercise-Induced Asthma Seasonal Allergies Insulin Resistance History of Depression Elevated Blood Pressure Reading Without Diagnosis of Hypertension Primary Hypertension Current Outpatient Medications on File Prior to Visit Medication Sig Promethazine-DM (PHENERGAN-DM) 6.25-15 mg/5 mL syrup Take 5 mL by mouth at bedtime as needed for cough. Phentermine HCl 37.5 mg tablet Take 1 tablet by mouth every afternoon. (Patient not taking: Reported on 06/20/2023) azithromycin (ZITHROMAX Z-PRIYANKA) 250 mg tablet 2 tablets by mouth first day then 1 tablet the next 4 days (Patient not taking: Reported on 06/20/2023) lisinopril (ZESTRIL) 10 mg tablet Take 1 tablet by mouth once daily. topiramate (TOPAMAX) 25 mg tablet Take 25 mg by mouth every night. After 14 days, increase to 50 mg by mouth every night. (Patient not taking: Reported on 06/20/2023) albuterol HFA (PROVENTIL HFA, VENTOLIN HFA) 90 mcg/actuation inhaler Inhale 2 Puffs as instructed every 4 hours as needed for wheezing/shortness of breath. levothyroxine (SYNTHROID) 100 mcg tablet Take 1 tablet by mouth once daily. fluticasone (FLONASE ALLERGY RELIEF) 50 mcg/actuation nasal spray Use 1 [place] in each nostril twice daily. omeprazole (PRILOSEC) 20 mg capsule Take 1 capsule by mouth once daily. (Patient not taking: Reported on 06/04/2023) clotrimazole (LOTRIMIN, CLOTRIM) 1 % cream APPLY TO AFFECTED AREA TWICE A DAY No current facility-administered medications on file prior to visit. VIDEO EXAM: (if completed, performed via video enabled technology) GENERAL: alert and appropriate, in no distress, well-hydrated, well nourished, and happy, smiling, interactive RESPIRATORY: breathing non-labored NEUROLOGIC: no obvious deficit PERTINENT LABORATORY AND IMAGING: All pertinent laboratory / test results were reviewed. Latest Ref Rng 02/28/2023 Glucose 74 - 99 mg/dL 92 BUN 7 - 21 mg/dL 13 Creatinine 0.58 - 0.96 mg/dL 0.95 Sodium 136 - 144 mmol/L 139 Potassium 3.7 - 5.1 mmol/L 3.6 (L) Chloride 97 - 105 mmol/L 100 CO2 22 - 30 mmol/L 28 Anion Gap 9 - 18 mmol/L 11 Calcium 8.5 - 10.2 mg/dL 10.4 (H) eGFR >=60 mL/min/1.73m 79 Legend: (L) Low (H) High ASSESSMENT/PLAN: (E66.01) Class 3 obesity (HCC) (E28.2) PCOS (polycystic ovarian syndrome) Patient comes today for treatment of overweight/obesity and its comorbidities. - Classification: Obesity Class 3 (BMI is 48.4) - Current Weight Loss: -11 lbs or -3.8% TBW (wt 293 lbs 06/2023 prior to restarting phentermine/topiramate) - GLP not covered by insurance - Continue phentermine 37.5 mg 1/2 tablet daily and topiramate 50 mg QHS. - Increase metformin ER to 1000 mg daily - BP/HR checked in office a couple weeks ago and were normal. Pt aware to have updated vitals for next visit unless checked recently in office. - Dietary recommendations: healthier choices, lean protein and higher fiber, no skipping meals - Exercise recommendations: Recommend gradual increase in exercise--add strength training. Goal is 150+ minutes moderate-intensity exercise per week + strength training/resistance exercise 2 days per week. - Recommend 7-9 hours sleep nightly, regular sleep pattern - Stress management Phentermine Protocol Has been using phentermine consistently for past 6 weeks Weight prior to starting phentermine: 293 lbs Calculated weight after 5% loss: 278 lbs Current weight 282 lbs *Must achieve a 5% weight loss within first 3 months of use and maintain this weight loss for ongoing use of medication. Orders placed: Orders Placed This Encounter Phentermine HCl 37.5 mg tablet Sig: Take 0.5 tablets by mouth once daily for 60 days. BMI 48 Dispense: 15 tablet Refill: 1 Follow-up in 6 weeks Seeing primary care provider and other specialists in regards to issues that are not explained by the condition(s) for which I am seeing the patient. Signed: Constanza Reilly MD, RD documented in this encounter [facility] 08-17-2023 Telephone encounter Note Pharmacy electronically requesting refills as follows: Last seen 08/06/23 . Last refill 03/06/23 . Requested Prescriptions Pending Prescriptions Disp Refills lisinopril (ZESTRIL) 10 mg tablet [Pharmacy Med Name: LISINOPRIL 10 MG TABLET] 30 tablet 2 Sig: take 1 tablet by mouth every day Please review and advise. Rajni Bernard MA [facility] 08-17-2023 Miscellaneous Notes Pharmacy electronically requesting refills as follows: Last seen 08/06/23 . Last refill 03/06/23 . Requested Prescriptions Pending Prescriptions Disp Refills lisinopril (ZESTRIL) 10 mg tablet [Pharmacy Med Name: LISINOPRIL 10 MG TABLET] 30 tablet 2 Sig: take 1 tablet by mouth every day Please review and advise. Rajni Bernard MA documented in this encounter [facility] 08-06-2023 History of Present illness Narrative Images from the original note were not included. Subjective Sonia Lara is a 37 year old female here today for follow-up COVID. I reviewed past medical, surgical, social, and family histories today and updated chart. Allergies, chronic medications, and supplements were also reviewed. HPI Had COVID 06/10/23 Tickle in the throat Dry Worse at night Keeps her up Promethazine cough syrup helps some Not taking anything over the counter No SOB No wheezing Will get some chest pains with coughing really hard No heart racing/palpitations Energy level is okay - doing all activities as normal GERD - in the last 2-3 weeks has had horrible heartburn out of no where Hasn't had it since 2016 Takes Tums over the counter Has some sores on her tongue/roof of mouth x 2 weeks Her had thrush recently PAST MEDICAL HISTORY Diagnosis Date Abnormal Pap smear of cervix Acquired hypothyroidism - check TSH Amenorrhea, unspecified - pt to track periods and we will discuss at next visit Anemia complicating , third trimester 01/28/2019 Binge eating disorder - refer to Dr. 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 Katz, Infertility, female Morbid obesity (HCC) - continue to follow weight watcher's progam, exercise 1 hour per day, goal of 30 pounds in 3 months, then will recheck triglycerides. Obesity PCOS (polycystic ovarian syndrome) depression 01/05/2020 Primary hypertension 02/28/2022 Seasonal allergies PAST SURGICAL HISTORY Procedure Laterality Date BARIATRIC SURGERY HX 12/13/[address] Katz SNGL 04/12/2019 C/S low transverse CAUTERY CERVIX CRYOCAUTERY INITIAL/REPEAT 2006 DELIVERY ONLY 05/17/2021 LTCS D&C SUCTION 06/22/2020 incomplete ab HERNIA REPAIR HX REVISION OF FOOT BONES Left 02/07/2013 Ganglion Cyst/Bone Spur removed, Bone shaved. Left Foot Dr. Pickard SALPINGECTOMY Bilateral 05/17/2021 at second c/s TONSILLECTOMY HX ALLERGIES Codeine MEDICATIONS levonorgestrel (MIRENA) 21 mcg/24 hours (8 yrs) 52 mg IUD 1 Each by INTRAUTERINE route as directed. Phentermine HCl 37.5 mg tablet Take 0.5 tablets by mouth once daily for 60 days. BMI 50. topiramate (TOPAMAX) 50 mg tablet Take 1 tablet by mouth daily at bedtime. metFORMIN ER (GLUCOPHAGE XR) 500 mg 24 hr tablet Take 1 tablet by mouth daily with dinner for 14 days, THEN 2 tablets daily with dinner. Promethazine-DM (PHENERGAN-DM) 6.25-15 mg/5 mL syrup Take 5 mL by mouth at bedtime as needed for cough. lisinopril (ZESTRIL) 10 mg tablet Take 1 tablet by mouth once daily. albuterol HFA (PROVENTIL HFA, VENTOLIN HFA) 90 mcg/actuation inhaler Inhale 2 Puffs as instructed every 4 hours as needed for wheezing/shortness of breath. levothyroxine (SYNTHROID) 100 mcg tablet Take 1 tablet by mouth once daily. fluticasone (FLONASE ALLERGY RELIEF) 50 mcg/actuation nasal spray Use 1 [place] in each nostril twice daily. clotrimazole (LOTRIMIN, CLOTRIM) 1 % cream APPLY TO AFFECTED AREA TWICE A DAY azithromycin (ZITHROMAX Z-PRIYANKA) 250 mg tablet 2 tablets by mouth first day then 1 tablet the next 4 days (Patient not taking: Reported on 08/06/2023) omeprazole (PRILOSEC) 20 mg capsule Take 1 capsule by mouth once daily. (Patient not taking: Reported on 06/04/2023) FAMILY HISTORY Problem Relation Age of Onset other (Diabetes mellitus) Father other (Thyroid disorder) Father Rheumatologic disease Mother other (Endometriosis) Mother other (fibromyalgia) Mother No Known Problems Brother Colon Cancer Paternal Grandfather No Known Problems Brother Rheumatologic disease Maternal Grandmother Cancer Maternal Grandfather Lung- Mesothelioma Social History Tobacco Use Smoking status: Never Smokeless tobacco: Never Vaping Use Vaping Use: Never used Substance Use Topics Alcohol use: Not Currently Comment: monthy use Drug use: Never Review of Systems Constitutional: Positive for fatigue. Negative for appetite change, chills, fever and unexpected weight change. HENT: Negative for congestion, ear pain, rhinorrhea and sore throat. Eyes: Negative for pain, discharge, itching and visual disturbance. Respiratory: Positive for cough. Negative for shortness of breath and wheezing. Cardiovascular: Positive for chest pain. Negative for palpitations and leg swelling. Gastrointestinal: Negative for abdominal pain, constipation, diarrhea, nausea and vomiting. Genitourinary: Negative for difficulty urinating. Musculoskeletal: Negative for arthralgias. Skin: Negative for rash. Neurological: Negative for dizziness, tremors, weakness and headaches. Psychiatric/Behavioral: Negative for dysphoric mood and sleep disturbance. The patient is not nervous/anxious. Objective BP 126/74 Pulse 76 Temp 97.8 Ht 5' 4 (1.63m) Wt 287 lb (130.2kg) SpO2 98% LMP 07/13/2023 BMI 49.24 kg/(m^2). Physical Exam Constitutional: General: She is not in acute distress. Appearance: She is well-developed. She is not toxic-appearing. HENT: Head: Normocephalic and atraumatic. Right Ear: Hearing, tympanic membrane, ear canal and external ear normal. No drainage. Tympanic membrane is not injected or bulging. Left Ear: Hearing, tympanic membrane, ear canal and external ear normal. No drainage. Tympanic membrane is not injected or bulging. Nose: Nose normal. No mucosal edema or rhinorrhea. Mouth/Throat: Lips: [place]. Mouth: Mucous membranes are moist. Oral lesions present. Pharynx: Oropharynx is clear. Uvula midline. No oropharyngeal exudate or posterior oropharyngeal erythema. Eyes: General: Lids are normal. Right eye: No discharge. Left eye: No discharge. Conjunctiva/sclera: Conjunctivae normal. Pupils: Pupils are equal, round, and reactive to light. Cardiovascular: Rate and Rhythm: Normal rate and regular rhythm. Heart sounds: Normal heart sounds. No murmur heard. Pulmonary: Effort: Pulmonary effort is normal. Breath sounds: Normal breath sounds. No wheezing, rhonchi or rales. Musculoskeletal: Cervical back: Normal range of motion and neck supple. Lymphadenopathy: Head: Right side of head: No tonsillar, preauricular or posterior auricular adenopathy. Left side of head: No tonsillar, preauricular or posterior auricular adenopathy. Cervical: No cervical adenopathy. Upper Body: Right upper body: No supraclavicular adenopathy. Left upper body: No supraclavicular adenopathy. Skin: General: Skin is warm and dry. Findings: No bruising or rash. Neurological: General: No focal deficit present. Mental Status: She is alert and oriented to person, place, and time. Cranial Nerves: No cranial nerve deficit. Psychiatric: Mood and Affect: Mood and affect normal. Speech: Speech normal. Behavior: Behavior normal. Behavior is cooperative. ASSESSMENT/PLAN: 1. Post-COVID chronic cough - ICD9: 786.2, 139.8, ICD10: R05.3, U09.9 (primary diagnosis) Prednisone taper Promethazine cough syrup Start PPI for GERD FU 3-4 weeks 2. Thrush - ICD9: 112.0, ICD10: B37.0 Nystatin mouth wash Farheen Almendarez APRN.FRUIT HARVESTER documented in this encounter [facility] 08-01-2023 Instructions Della Hidalgo MA - 08/01/2023 2:04 PM EDT POST IUD INSTRUCTIONS You may have irregular bleeding during the first 3 months of use. You may have mild-severe cramping for the next 48 hours. You may use over the counter medication (Motrin, Tylenol) as needed. Your IUD must be removed or replaced based on the following table: IUD Type Removed or replaced within: Janice 3 years Kyleena 5 years Mirena 8 years Liletta 8 years Paragard 10 years Call the office for signs/symptoms of infection such as severe cramping, fever, or unusual bleeding. Check for string placement as instructed by your doctor. If you have any additional questions, please contact the office. documented in this encounter [facility] 08-01-2023 History of Present illness Narrative Regina presents today for IUD insertion for menstrual dysfunction. Patient's last menstrual period was 06/13/2023 (approximate). GC/chlamydia: Not done: no risk factors and/or patient declines screening test: negative Side effects including irregular bleeding were discussed with the patient. The patient understands that it should be removed in 8 years or sooner if the patient desires a . IUD source: office provided IUD lot #: [id number] Exp date: 09/22/2025 UNIVERSAL PROTOCOL / SAFETY CHECKLIST Procedure to be Performed: Mirena IUD insertion Sign In: A Moment of CARE was completed. Personnel directly involved with the procedure wore the appropriate PPE (Personal Protective Equipment). Patient/Surrogate Stated/Verified: PATIENT VERIFIED(optional for EMERGENT procedures): Patient name, Date of , Relevant allergies, and The intended procedure Time Out Communication: Intended patient and procedure match the source documents. Consent documented and matches the intended procedure. Implant(s) inserted: Correct implant(s) confirmed including size and side. and Expiration date(s) reviewed. Sign Out: SIGN OUT (optional for EMERGENT procedures): All specimen containers correctly labeled. All instruments, equipment, possible retained foreign bodies accounted for. Post-procedure follow-up management communicated and Plan of Care Visit completed when applicable. Komal Booth M.D. The cervix was prepped with betadine. The uterus sounded to 11 cm and the uterus is Anteverted.. Using sterile technique, the Mirena IUD was inserted without difficulty and the string was cut to 2cm from the external os of the cervix. Patient tolerated procedure well. PLAN: Patient was advised to observe for signs and symptoms of infection including but not limited to fever, malodorous vaginal discharge and/or pain. The patient was told to check the string monthly for accurate placement. Bleeding expectations were reviewed. Follow up for next annual exam or sooner as needed. Komal Booth MD documented in this encounter [facility] 07-28-2023 History of Present illness Narrative Images from the original note were not included. This note was created using [employer]. Subjective Sonia Lara is a 37 year old female. HPI 37-year-old female presents for sore throat. Patient states she has had sore throat for about a week. Her just tested positive for strep, so she wanted to be evaluated. Patient states she has a little bit of a cough. No fevers. No vomiting or diarrhea. Still able to eat and drink. No other complaints. PAST MEDICAL HISTORY Diagnosis Date Abnormal Pap smear of cervix Acquired hypothyroidism - check TSH Amenorrhea, unspecified - pt to track periods and we will discuss at next visit Anemia complicating , third trimester 01/28/2019 Binge eating disorder - refer to Dr. 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 Katz, Infertility, female Morbid obesity (HCC) - continue to follow weight watcher's progam, exercise 1 hour per day, goal of 30 pounds in 3 months, then will recheck triglycerides. Obesity PCOS (polycystic ovarian syndrome) depression 01/05/2020 Primary hypertension 02/28/2022 Seasonal allergies PAST SURGICAL HISTORY Procedure Laterality Date BARIATRIC SURGERY HX 12/13/[address] Katz SNGL 04/12/2019 C/S low transverse CAUTERY CERVIX CRYOCAUTERY INITIAL/REPEAT 2006 DELIVERY ONLY 05/17/2021 LTCS D&C SUCTION 06/22/2020 incomplete ab HERNIA REPAIR HX REVISION OF FOOT BONES Left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 breath. levothyroxine (SYNTHROID) 100 mcg tablet Take 1 tablet by mouth once daily. fluticasone (FLONASE ALLERGY RELIEF) 50 mcg/actuation nasal spray Use 1 [place] in each nostril twice daily. clotrimazole (LOTRIMIN, CLOTRIM) 1 % cream APPLY TO AFFECTED AREA TWICE A DAY omeprazole (PRILOSEC) 20 mg capsule Take 1 capsule by mouth once daily. (Patient not taking: Reported on 06/04/2023) FAMILY HISTORY Problem Relation Age of Onset other (Diabetes mellitus) Father other (Thyroid disorder) Father Rheumatologic disease Mother other (Endometriosis) Mother other (fibromyalgia) Mother No Known Problems Brother Colon Cancer Paternal Grandfather No Known Problems Brother Rheumatologic disease Maternal Grandmother Cancer Maternal Grandfather Lung- Mesothelioma Social History Tobacco Use Smoking status: Never Smokeless tobacco: Never Vaping Use Vaping Use: Never used Substance Use Topics Alcohol use: Not Currently Comment: monthy use Drug use: Never Review of Systems Constitutional: Positive for chills, fatigue and fever. Negative for appetite change and unexpected weight change. HENT: Positive for rhinorrhea and sore throat. Negative for congestion and ear pain. Eyes: Negative for pain, discharge, itching and visual disturbance. Respiratory: Negative for cough, shortness of breath and wheezing. Cardiovascular: Negative for chest pain, palpitations and leg swelling. Gastrointestinal: Negative for abdominal pain, constipation, diarrhea, nausea and vomiting. Genitourinary: Negative for difficulty urinating. Musculoskeletal: Negative for arthralgias. Skin: Negative for rash. Neurological: Negative for dizziness, tremors, weakness and headaches. Psychiatric/Behavioral: Negative for dysphoric mood and sleep disturbance. The patient is not nervous/anxious. Objective BP 126/74 Pulse 118 Temp 37.1 C (98.7 F) Ht 152.4 cm (5') Wt 131.5 kg (290 lb) LMP 05/18/2023 (Approximate) SpO2 100% BMI 56.64 kg/m Physical Exam Constitutional: General: She is not in acute distress. Appearance: She is well-developed. She is ill-appearing. She is not toxic-appearing. HENT: Head: Normocephalic and atraumatic. Right Ear: Hearing, tympanic membrane, ear canal and external ear normal. No drainage. Tympanic membrane is not injected or bulging. Left Ear: Hearing, tympanic membrane, ear canal and external ear normal. No drainage. Tympanic membrane is not injected or bulging. Nose: Rhinorrhea present. No mucosal edema. Mouth/Throat: Lips: [place]. Mouth: Mucous membranes are moist. No oral lesions. Pharynx: Oropharynx is clear. Uvula midline. No oropharyngeal exudate or posterior oropharyngeal erythema. Eyes: General: Lids are normal. Right eye: No discharge. Left eye: No discharge. Conjunctiva/sclera: Conjunctivae normal. Pupils: Pupils are equal, round, and reactive to light. Cardiovascular: Rate and Rhythm: Normal rate and regular rhythm. Heart sounds: Normal heart sounds. No murmur heard. Pulmonary: Effort: Pulmonary effort is normal. Breath sounds: Normal breath sounds. No wheezing, rhonchi or rales. Musculoskeletal: Cervical back: Normal range of motion and neck supple. Lymphadenopathy: Head: Right side of head: No tonsillar, preauricular or posterior auricular adenopathy. Left side of head: No tonsillar, preauricular or posterior auricular adenopathy. Cervical: No cervical adenopathy. Upper Body: Right upper body: No supraclavicular adenopathy. Left upper body: No supraclavicular adenopathy. Skin: General: Skin is warm and dry. Findings: No bruising or rash. Neurological: General: No focal deficit present. Mental Status: She is alert and oriented to person, place, and time. Cranial Nerves: No cranial nerve deficit. Psychiatric: Mood and Affect: Mood and affect normal. Speech: Speech normal. Behavior: Behavior normal. Behavior is cooperative. ASSESSMENT/PLAN: 1. Viral illness - ICD9: 079.99, ICD10: B34.9 (primary diagnosis) - Discussed viral etiology and rationale for treatment. - Symptomatic treatment with prn analgesia - Supportive care with fluids and rest - Follow up in 3-5 days if symptoms persist or sooner if worsening of symptoms - COVID & INFLUENZA A/B & RSV NAAT, ROUTINE 2. Acute cough - ICD9: 786.2, ICD10: R05.1 - PROMETHAZINE-DM 6.25 MG-15 MG/5 ML ORAL SYRUP Farheen Almendarez APRN.FRUIT HARVESTER documented in this encounter [facility] 06-04-2023 History of Present illness Narrative Superintendent Sanitation offered: Patient declines. Sonia Lara is a 37 year old female who presents for concerns regarding right breast mass. Patient states felt it months ago but made the decision to come in as her friend was just recently diagnosed with breast cancer. Patient states that she does not feel the mass has increased in size and it is not painful. She has not noticed any skin changes or nipple discharge. She states that the mass is not painful. She states that she had a mammogram approximately 4 years ago due to an indentation in the right breast which was just muscular. Patient reports no changes in weight or appetite. No other concerns today. OB History T2 L2 SAB1 IAB0 Ectopic0 Multiple0 Live Births2 Stock Parts Inspector History LMP: 08/21/2020 (Approximate), Unknown Age at Menarche: Age at First : Age at Menopause: Stock Parts Inspector History Comments: Sexual Activity: Yes; Male; bilateral salpingectomy at c/s Contraception: Surgical PAST MEDICAL HISTORY Diagnosis Date Abnormal Pap smear of cervix Acquired hypothyroidism - check TSH Amenorrhea, unspecified - pt to track periods and we will discuss at next visit Anemia complicating , third trimester 01/28/2019 Binge eating disorder - refer to Dr. 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 Katz, Infertility, female Morbid obesity (HCC) - continue to follow weight watcher's progam, exercise 1 hour per day, goal of 30 pounds in 3 months, then will recheck triglycerides. Obesity PCOS (polycystic ovarian syndrome) depression 01/05/2020 Primary hypertension 02/28/2022 Seasonal allergies PAST SURGICAL HISTORY Procedure Laterality Date BARIATRIC SURGERY HX 12/13/[address] Katz SNGL 04/12/2019 C/S low transverse CAUTERY CERVIX CRYOCAUTERY INITIAL/REPEAT 2006 DELIVERY ONLY 05/17/2021 LTCS D&C SUCTION 06/22/2020 incomplete ab HERNIA REPAIR HX REVISION OF FOOT BONES Left 02/07/2013 Ganglion Cyst/Bone Spur removed, Bone shaved. Left Foot Dr. Pickard SALPINGECTOMY Bilateral 05/17/2021 at second c/s TONSILLECTOMY HX FAMILY HISTORY Problem Relation Age of Onset other (Diabetes mellitus) Father other (Thyroid disorder) Father Rheumatologic disease Mother other (Endometriosis) Mother other (fibromyalgia) Mother No Known Problems Brother Colon Cancer Paternal Grandfather No Known Problems Brother Rheumatologic disease Maternal Grandmother Cancer Maternal Grandfather Lung- Mesothelioma Social History Tobacco Use Smoking status: Never Smokeless tobacco: Never Vaping Use Vaping Use: Never used Substance Use Topics Alcohol use: Not Currently Comment: monthy use Drug use: Never Current Outpatient Medications Medication Sig Phentermine HCl 37.5 mg tablet Take 1 tablet by mouth every afternoon. Promethazine-DM (PHENERGAN-DM) 6.25-15 mg/5 mL syrup Take 5 mL by mouth at bedtime as needed for cough. azithromycin (ZITHROMAX Z-PRIYANKA) 250 mg tablet 2 tablets by mouth first day then 1 tablet the next 4 days lisinopril (ZESTRIL) 10 mg tablet Take 1 tablet by mouth once daily. topiramate (TOPAMAX) 25 mg tablet Take 25 mg by mouth every night. After 14 days, increase to 50 mg by mouth every night. albuterol HFA (PROVENTIL HFA, VENTOLIN HFA) 90 mcg/actuation inhaler Inhale 2 Puffs as instructed every 4 hours as needed for wheezing/shortness of breath. levothyroxine (SYNTHROID) 100 mcg tablet Take 1 tablet by mouth once daily. fluticasone (FLONASE ALLERGY RELIEF) 50 mcg/actuation nasal spray Use 1 [place] in each nostril twice daily. omeprazole (PRILOSEC) 20 mg capsule Take 1 capsule by mouth once daily. clotrimazole (LOTRIMIN, CLOTRIM) 1 % cream APPLY TO AFFECTED AREA TWICE A DAY No current facility-administered medications for this visit. Allergies As of Date: 06/04/2023 Allergen Noted Reaction CODEINE 06/29/2010 Other: See Comments Fully Assessed 05/08/2023 REVIEW OF SYSTEMS Breast: see HPI . Expanded ROS: GENERAL: Negative for significant weight loss Allergies and current medication updated:Yes EXAM: BP 120/68 Wt 291 lb (132.0kg) LMP 05/18/2023 GENERAL: pleasant, female in no apparent distress HEENT: Normocephalic and atraumatic NECK: Supple, full range of motion, and no adenopathy- no Supraclavicular Lymphadenopathy DERMATOLOGY: Normal, without lesions, non-icteric, and non-hirsute BREAST: soft, non-tender, symmetric, normal nipple-areolar complex, no lymphadenopathy, no nipple discharge, and RIGHT breast with area of increased density small round mass- mobile, non tender at 12:00. About 1cm. ABDOMEN: soft, non-tender, and no masses NEURO: alert and oriented x3,exam grossly non-focal EXTREMITIES: normal ASSESSMENT AND PLAN: Encounter Diagnosis ICD-10-CM 1. Mass overlapping multiple quadrants of right breast N63.15 FRED DIAGNOSTIC BILATERAL US BREAST LTD RIGHT 2. Annual exam scheduled. Medical Decision Making: Problems: Moderate: New problem with uncertain prognosis Data: Unique test(s) ordered: 2 Risk: Low: Low risk from testing/treatment Medical Decision Making Level: 3 - Low Gela Bunch MD documented in this encounter [facility] 05-08-2023 History of Present illness Narrative This note was created using [employer]. Subjective Sonia Lara is a 37 year old female here today for sick visit. I reviewed past medical, surgical, social, and family histories today and updated chart. Allergies, chronic medications, and supplements were also reviewed. Cough started about 13 days ago It is productive Gets lightheaded with coughing spells Cough keeps her up at night Runny nose Nasal congestions Headaches First day had body aches and chills - resolved No fever Mucinex sinus, inhaler Home COVID test was negative PAST MEDICAL HISTORY Diagnosis Date Abnormal Pap smear of cervix Acquired hypothyroidism - check TSH Amenorrhea, unspecified - pt to track periods and we will discuss at next visit Anemia complicating , third trimester 01/28/2019 Binge eating disorder - refer to Dr. 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 Katz, Infertility, female Morbid obesity (HCC) - continue to follow weight watcher's progam, exercise 1 hour per day, goal of 30 pounds in 3 months, then will recheck triglycerides. Obesity PCOS (polycystic ovarian syndrome) depression 01/05/2020 Primary hypertension 02/28/2022 Seasonal allergies PAST SURGICAL HISTORY Procedure Laterality Date BARIATRIC SURGERY HX 12/13/[address] Katz SNGL 04/12/2019 C/S low transverse CAUTERY CERVIX CRYOCAUTERY INITIAL/REPEAT 2006 DELIVERY ONLY 05/17/2021 LTCS D&C SUCTION 06/22/2020 incomplete ab HERNIA REPAIR HX REVISION OF FOOT BONES Left 02/07/2013 Ganglion Cyst/Bone Spur removed, Bone shaved. Left Foot Dr. Pickard SALPINGECTOMY Bilateral 05/17/2021 at second c/s TONSILLECTOMY HX ALLERGIES Codeine MEDICATIONS lisinopril (ZESTRIL) 10 mg tablet Take 1 tablet by mouth once daily. topiramate (TOPAMAX) 25 mg tablet Take 25 mg by mouth every night. After 14 days, increase to 50 mg by mouth every night. albuterol HFA (PROVENTIL HFA, VENTOLIN HFA) 90 mcg/actuation inhaler Inhale 2 Puffs as instructed every 4 hours as needed for wheezing/shortness of breath. levothyroxine (SYNTHROID) 100 mcg tablet Take 1 tablet by mouth once daily. fluticasone (FLONASE ALLERGY RELIEF) 50 mcg/actuation nasal spray Use 1 [place] in each nostril twice daily. omeprazole (PRILOSEC) 20 mg capsule Take 1 capsule by mouth once daily. clotrimazole (LOTRIMIN, CLOTRIM) 1 % cream APPLY TO AFFECTED AREA TWICE A DAY Phentermine HCl 37.5 mg tablet Take 1 tablet by mouth every afternoon. FAMILY HISTORY Problem Relation Age of Onset other (Diabetes mellitus) Father other (Thyroid disorder) Father Rheumatologic disease Mother other (Endometriosis) Mother other (fibromyalgia) Mother No Known Problems Brother Colon Cancer Paternal Grandfather No Known Problems Brother Rheumatologic disease Maternal Grandmother Cancer Maternal Grandfather Lung- Mesothelioma Social History Tobacco Use Smoking status: Never Smokeless tobacco: Never Vaping Use Vaping Use: Never used Substance Use Topics Alcohol use: Not Currently Comment: monthy use Drug use: Never Review of Systems Constitutional: Positive for chills and fatigue. Negative for appetite change, fever and unexpected weight change. HENT: Positive for congestion, ear pain (getting better) and rhinorrhea. Negative for sore throat. Eyes: Negative for pain, discharge, itching and visual disturbance. Respiratory: Positive for cough and shortness of breath (with coughing fits). Negative for wheezing. Cardiovascular: Negative for chest pain, palpitations and leg swelling. Gastrointestinal: Negative for abdominal pain, constipation, diarrhea, nausea and vomiting. Genitourinary: Negative for difficulty urinating. Musculoskeletal: Negative for arthralgias. Skin: Negative for rash. Neurological: Positive for light-headedness and headaches. Negative for dizziness, tremors and weakness. Psychiatric/Behavioral: Negative for dysphoric mood and sleep disturbance. The patient is not nervous/anxious. Objective BP 122/76 Pulse 78 Temp 36.6 C (97.8 F) Ht 152.4 cm (5') Wt 130.2 kg (287 lb) LMP 08/21/2020 (Approximate) SpO2 95% BMI 56.05 kg/m Physical Exam Constitutional: General: She is not in acute distress. Appearance: She is well-developed. She is not toxic-appearing. HENT: Head: Normocephalic and atraumatic. Right Ear: Hearing, tympanic membrane, ear canal and external ear normal. No drainage. Tympanic membrane is not injected or bulging. Left Ear: Hearing, tympanic membrane, ear canal and external ear normal. No drainage. Tympanic membrane is not injected or bulging. Nose: Mucosal edema present. No rhinorrhea. Mouth/Throat: Lips: [place]. Mouth: Mucous membranes are moist. No oral lesions. Pharynx: Oropharynx is clear. Uvula midline. No oropharyngeal exudate or posterior oropharyngeal erythema. Eyes: General: Lids are normal. Right eye: No discharge. Left eye: No discharge. Conjunctiva/sclera: Conjunctivae normal. Pupils: Pupils are equal, round, and reactive to light. Cardiovascular: Rate and Rhythm: Normal rate and regular rhythm. Heart sounds: Normal heart sounds. No murmur heard. Pulmonary: Effort: Pulmonary effort is normal. Breath sounds: Normal breath sounds. No wheezing, rhonchi or rales. Comments: Cough is harsh Musculoskeletal: Cervical back: Normal range of motion and neck supple. Lymphadenopathy: Head: Right side of head: No tonsillar, preauricular or posterior auricular adenopathy. Left side of head: No tonsillar, preauricular or posterior auricular adenopathy. Cervical: No cervical adenopathy. Upper Body: Right upper body: No supraclavicular adenopathy. Left upper body: No supraclavicular adenopathy. Skin: General: Skin is warm and dry. Findings: No bruising or rash. Neurological: General: No focal deficit present. Mental Status: She is alert and oriented to person, place, and time. Cranial Nerves: No cranial nerve deficit. Psychiatric: Mood and Affect: Mood and affect normal. Speech: Speech normal. Behavior: Behavior normal. Behavior is cooperative. ASSESSMENT/PLAN: 1. Acute cough - ICD9: 786.2, ICD10: R05.1 (primary diagnosis) Promethazine-DM cough syrup as needed 2. Upper respiratory tract infection, unspecified type - ICD9: 465.9, ICD10: J06.9 Symptoms persisting Zpak - Symptomatic treatment with prn analgesia - Supportive care with fluids and rest Follow up for worsening or persistent symptoms. Farheen Almendarez APRN.FRUIT HARVESTER documented in this encounter [facility] 05-01-2023 History of Present illness Narrative Virtual Visit (Audio/Visual)I have discussed the nature of this visit with the patient which will occur via [facility] (Phone, Virtual Visit) and she agrees to proceed with this interaction. Regina is doing well. She is loving the mommy and me exercises. Her kids and join in. She is doing 3-4 nights a week. She is feeling good with where she is at. She will reach out if she has any additional questions [phone] documented in this encounter [facility] 03-06-2023 Miscellaneous Notes Patient notified of all information. Reminder placed. Mary Rose MA Reminder placed. Mary Rose MA Labs are showing mildly low potassium and mildly elevated calcium. It is most likely related to her blood pressure pill. I would like to stop HCTZ and start lisinopril instead Keep appts for BP check Recheck BMP in 1 month please add reminder. Farheen Almendarez APRN.RGISELDA documented in this encounter [facility] 01-30-2023 Miscellaneous Notes patient electronically requesting refills as follows: Last seen 12/27/22 . Last refill 07/16/19 . Requested Prescriptions Pending Prescriptions Disp Refills albuterol HFA (PROVENTIL HFA, VENTOLIN HFA) 90 mcg/actuation inhaler Sig: Inhale 2 Puffs as instructed every 4 hours as needed for wheezing/shortness of breath. Please review and advise. Rajni Bernard MA documented in this encounter [facility] 01-10-2023 History of Present illness Narrative Virtual Visit (Audio/Visual)I have discussed the nature of this visit with the patient which will occur via [facility] (Phone, Virtual Visit) and she agrees to proceed with this interaction. Regina is doing well. She is down 30 pounds. She is working on consistently lifting weights. She did get sick and it took a lot out of her. She is working on getting back on track. Post Follow up 2 of 3 04/04/2023 10:00am [phone] documented in this encounter [facility] 01-02-2023 History of Present illness Narrative Images from the original note were not included. Endocrinology Follow Up Assessment This is a virtual visit using [employer] Video Visit. It required patient-provider interaction for the medical decision making as documented below. I have communicated my name and active licensure. The patient's identity and physical location were verified at the time of this visit. Either the patient or their legal home office representative has been informed of the risks and benefits of -- and alternatives to -- treatment through a remote evaluation and consents to proceed with the evaluation remotely. Date: January 02, 2023 AMERICO: September 18, 2022 History of Present Illness Sonia Lara is a 36 year old female with PMH of obesity, PCOS, CORY, exercise-induced asthma and fatty liver is here for evaluation of obesity and associated medical problems. Weight History: Issues at onset of weight gain: Reports weight issues most of her life. Was active in high school and graduated with 160-180 pounds. Gained more weight during college and moving forward. Had gastric sleeve in 2017 at . Pre-surgical weight: 317 pounds and lowest weight ~220 pounds around one year after surgery. She maintained the weight for a while and was going through fertility treatment and was regaining the weight. First : with letrozole, gained ~60 pounds. Delivered 03/2019. Second : delivered May 2020, but lost baby unfortunately. Third : delivered Apr 2021. Gained 20 pounds. Had pre-eclampsia. 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 Works late nights and have evening snacks. Current weight: 305 pounds Patient's Goal: 200 pounds Compelling reason improve health for her children and believes it is an attainable number Weight Loss Attempts: Gastric sleeve, caloric restriction Steroid/medications which may contribute to obesity: flonase DIET: Breakfast: coffee with creamer, eggs with toast, yogurt Lunch: sandwich, chicken nuggets, soup, left overs Dinner: protein, carb and veggies, like chicken or pork chops, meatloaf with rice or potatoes and corn, green holloway Snack: chips, cheese Patient usually drinks coffee, unsweetened iced tea and 1 diet coke per day. Alcohol: none PHYSICAL ACTIVITY: Not much. Tries to walk on the treadmill but reports being busy with kids and work SLEEP HABITS goes to bed ~8 PM but sometimes 1 AM and wakes up ~6:30 AM INTERVAL HISTORY: 04/10/22 Reports for the last 3 weeks has been exercising more and tracking her meals. Riding her [employer] bike 3-4 times per week for 20-30 minutes. Monitoring her carbs. Current weight: 304 pounds Has an appointment on with dietitian next week and with clean room operator. Pending to have two saliva cortisol tests. Needs to make follow up appointment with Dr. Sahu. INTERVAL HISTORY: 09/18/22 In our last visit we prescribed Contrave. She only took it for one month and then stopped it due to headaches. Was also not noticing any appetite or weight changes. Following up with clean room operator. She is walking and sometimes swimming. Current weight: 287 pounds (lost ~21 pounds). Interested in other options for pharmacologic treatment. INTERVAL HISTORY: 01/02/23 In our last visit we prescribed phentermine 37.5 mg tablet. She started taking the medication early October. Initially took 1/2 tablet and then increased to full tablet after a few days. Initially had dry mouth but no more side effects. Some control of appetite. Physical Activity: walking and lifting weights 2-3 days per week with . Vital Signs at nurse visit 11/06/22: Vitals: BP 120/78 Pulse 91 Wt 133.3 kg (293 lb 12.8 oz) Current weight: 282 pounds. 5% goal at 3 months from November 06 is 278 pounds. BP: had a doctor's appointment last week and was 124/78 mmHg Medications, Allergies Current Outpatient Medications Medication Sig Dispense Refill cephALEXin (KEFLEX) 500 mg capsule Take 1 capsule by mouth three times a day for 7 days. 21 capsule 0 levothyroxine (SYNTHROID) 100 mcg tablet Take 1 tablet by mouth once daily. 90 tablet 3 hydroCHLOROthiazide 25 mg tablet TAKE 1 TABLET BY MOUTH EVERY DAY 90 tablet 1 fluticasone (FLONASE ALLERGY RELIEF) 50 mcg/actuation nasal spray Use 1 [place] in each nostril twice daily. 1 Each 0 omeprazole (PRILOSEC) 20 mg capsule Take 1 capsule by mouth once daily. 30 capsule 2 clotrimazole (LOTRIMIN, CLOTRIM) 1 % cream APPLY TO AFFECTED AREA TWICE A DAY 28.4 g 2 albuterol HFA (PROVENTIL HFA, VENTOLIN HFA) 90 mcg/actuation inhaler Inhale 2 Puffs as instructed every 4 hours as needed for Wheezing/Shortness of Breath. 1 Inhaler 5 No current facility-administered medications for this visit. ALLERGIES Allergen Reactions Codeine Other: See Comments Nausea Review of Systems Answers submitted by the patient for this visit: Answers submitted by the patient for this visit: Core Review of Systems (Submitted on 01/02/2023) Fever : No Night Sweats: No Recent Unintentional Weight Change: No Nasal Congestion: No Hearing Loss: No Vision Disturbance: No A Cough: No Difficulty Breathing?: No Chest Pain: No Irregular Heart Beat: No Leg Swelling: No Nausea: No Diarrhea: No Black Tarry Stools: No Difficulty Urinating?: No Awaken at Night More Than Once to Urinate?: No Joint Pain or Stiffness: No Muscle Aches: Yes Leg or Foot Discomfort at Night?: No A Rash: No Dizziness: No Headaches: No Memory Loss: No Seizures: No Physical Exam Awake and alert, oriented No thyroid eye signs No visible goiter Appropriate affect Previous Laboratory Results Component Latest Ref Rng & Units 04/24/2022 05/29/2022 05/30/2022 06/04/2022 08/29/2022 09/06/2022 Glucose 74 - 99 mg/dL 82 BUN 7 - 21 mg/dL 14 Creatinine 0.58 - 0.96 mg/dL 0.92 Sodium 136 - 144 mmol/L 137 Potassium 3.7 - 5.1 mmol/L 4.1 Chloride 97 - 105 mmol/L 100 CO2 22 - 30 mmol/L 28 Anion Gap 9 - 18 mmol/L 9 Calcium 8.5 - 10.2 mg/dL 10.3 (H) eGFR >=60 mL/min/1.73m 83 Cholesterol, Total <200 mg/dL 202 (H) Triglyceride <150 mg/dL 213 (H) HDL Cholesterol >39 mg/dL 57 Non HDL Cholesterol <130 mg/dL 145 (H) Fasting Time hrs 12 VLDL Cholesterol <30 mg/dL 43 (H) TC:HDL Ratio <5.10 3.54 LDL Cholesterol <100 mg/dL 102 (H) LDL:HDL Ratio <2.54 1.79 Creatinine Ur, per volume mg/dL 91 Creatinine Ur, per 24h 700 - 1600 mg/d 1895 (H) Free Cortisol ug/L, Urine ug/L 8.05 Cortisol ug/g Extension Work Instructor, Ur (UFRCRT) ug/g SECURITY SYSTEMS ENGINEER 8.85 Total Volume mL 2082 Hours Collected hr 24 Free Cortisol ug/day, Urine <=45.0 ug/d 16.8 Free Cortisol UR, Interpretation See Note Albumin 3.9 - 4.9 g/dL 4.5 4.1 Bilirubin, Total 0.2 - 1.3 mg/dL 0.6 0.5 Bilirubin, Conjug <0.2 mg/dL <0.2 <0.2 Alkaline Phosphatase 34 - 123 U/L 107 93 AST 13 - 35 U/L 65 (H) 36 (H) ALT 7 - 38 U/L 97 (H) 50 (H) Protein, Total 6.3 - 8.0 g/dL 7.6 7.1 Creatinine 24 hr Ur 0.595 - 2.113 g/24 hr 1.997 Period hr 24 Urine Volume 24 hour mL 2,082 Cortisol, Saliva ug/dL See Note See Note TSH 0.270 - 4.200 mIU/L 1.300 Free T4 0.9 - 1.7 ng/dL 1.3 Impression/Recommendations 36 year old female is currently evaluated for: ASSESSMENT/PLAN: 1. Class 3 obesity (HCC) - ICD9: 278.01, ICD10: E66.01 (primary diagnosis) 2. History of bariatric surgery - ICD9: V45.86, ICD10: Z98.84 Weight decreasing Her goal weight is 278 pounds by next month. She will work on cutting down carbs and increase protein. Also recommend to work on meal planning and prepping. To develop a plan for the Holidays and vacation Continue current exercise program Continue phentermine 37.5 mg one full tablet for the next month and add topiramate 25 mg every day at bedtime Discussed side effects of topiramate - PHENTERMINE 37.5 MG TABLET - TOPIRAMATE 25 MG TABLET 3. Insulin resistance - ICD9: 277.7, ICD10: E88.819 Weight loss as above - PHENTERMINE 37.5 MG TABLET - TOPIRAMATE 25 MG TABLET I spent a total of 12 minutes on the date of the service which included preparing to see the patient, [id number] patient care, completing clinical documentation, counseling and educating the patient/family/caregiver, and ordering medications, tests, or procedures. Viviane Interiano MD documented in this encounter [facility] 01-02-2023 Miscellaneous Notes Patient notified. Mary Rose MA ----- Message from Farheen Almendarez APRN.CNP sent at 01/01/2023 5:24 PM EDT ----- Please notify patient results are normal. Thank you. Farheen Almendarez APRN.CNP documented in this encounter [facility] 12-06-2022 Miscellaneous Notes ----- Message from Kiera Headley MA sent at 09/05/2022 3:03 PM EDT ----- Recheck liver in 3 months documented in this encounter [facility] 11-20-2022 Miscellaneous Notes AMERICO: 09/18/22 NOV: 11/28/22 Thyroid and HgbA1C pended. A1C in-office or lab? Sent to Provider documented in this encounter [facility] 11-06-2022 History of Present illness Narrative Thank you, no changes. Farheen Almendarez APRN.FRUIT HARVESTER Patient here for BP and weight check after starting phentermine from her mail service coordinator. Patient's last BP was 124/78 at 08/29/22 office visit. Patient is currently taking HCTZ 25 mg daily. Patient's BP today was 120/78. Patient has follow up visit with Farheen Almendarez CNP 02/28/23 which she will keep. Rajni Bernard MA documented in this encounter [facility] 09-20-2022 History of Present illness Narrative Virtual Visit (Audio/Visual)I have discussed the nature of this visit with the patient which will occur via [facility] (Phone, Virtual Visit) and she agrees to proceed with this interaction. Regina is doing well. She went on vacation and did a lot of walking. She did not do any formal workouts during that vacations. Still doing the cardio and weights. Still doing ok with water. She has not been doing as much weights as she wanted. She has been walking with her mom and they are going to start biking. Post Follow up 01/10/2023 at 10:00am [phone] documented in this encounter [facility] 09-18-2022 History of Present illness Narrative Lmtcb on home/cell Images from the original note were not included. Endocrinology Follow Up Assessment This is a virtual visit using Audio only. It required patient-provider interaction for the medical decision making as documented below. I have communicated my name and active licensure. The patient's identity and physical location were verified at the time of this visit. Either the patient or their legal home office representative has been informed of the risks and benefits of -- and alternatives to -- treatment through a remote evaluation and consents to proceed with the evaluation remotely. Date: September 18, 2022 AMERICO: 04/10/22 History of Present Illness Sonia Lara is a 36 year old female with PMH of obesity, PCOS, CORY, exercise-induced asthma and fatty liver is here for evaluation of obesity and associated medical problems. Weight History: Issues at onset of weight gain: Reports weight issues most of her life. Was active in high school and graduated with 160-180 pounds. Gained more weight during college and moving forward. Had gastric sleeve in 2017 at . Pre-surgical weight: 317 pounds and lowest weight ~220 pounds around one year after surgery. She maintained the weight for a while and was going through fertility treatment and was regaining the weight. First : with letrozole, gained ~60 pounds. Delivered 03/2019. Second : delivered May 2020, but lost baby unfortunately. Third : delivered Apr 2021. Gained 20 pounds. Had pre-eclampsia. 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 Works late nights and have evening snacks. Current weight: 305 pounds Patient's Goal: 200 pounds Compelling reason improve health for her children and believes it is an attainable number Weight Loss Attempts: Gastric sleeve, caloric restriction Steroid/medications which may contribute to obesity: flonase DIET: Breakfast: coffee with creamer, eggs with toast, yogurt Lunch: sandwich, chicken nuggets, soup, left overs Dinner: protein, carb and veggies, like chicken or pork chops, meatloaf with rice or potatoes and corn, green holloway Snack: chips, cheese Patient usually drinks coffee, unsweetened iced tea and 1 diet coke per day. Alcohol: none PHYSICAL ACTIVITY: Not much. Tries to walk on the treadmill but reports being busy with kids and work SLEEP HABITS goes to bed ~8 PM but sometimes 1 AM and wakes up ~6:30 AM INTERVAL HISTORY: 04/10/22 Reports for the last 3 weeks has been exercising more and tracking her meals. Riding her peloton bike 3-4 times per week for 20-30 minutes. Monitoring her carbs. Current weight: 304 pounds Has an appointment on with dietitian next week and with clean room operator. Pending to have two saliva cortisol tests. Needs to make follow up appointment with Dr. Sahu. INTERVAL HISTORY: 09/18/22 In our last visit we prescribed Contrave. She only took it for one month and then stopped it due to headaches. Was also not noticing any appetite or weight changes. Following up with clean room operator. She is walking and sometimes swimming. Current weight: 287 pounds (lost ~21 pounds). Interested in other options for pharmacologic treatment. Medications, Allergies Current Outpatient Medications Medication Sig Dispense Refill levothyroxine (SYNTHROID) 100 mcg tablet Take 1 tablet by mouth once daily. 90 tablet 3 hydroCHLOROthiazide 25 mg tablet TAKE 1 TABLET BY MOUTH EVERY DAY 90 tablet 1 CONTRAVE 8-90 mg ER tablet Take two tablets by mouth twice a day 120 tablet 0 fluticasone (FLONASE ALLERGY RELIEF) 50 mcg/actuation nasal spray Use 1 [place] in each nostril twice daily. 1 Each 0 omeprazole (PRILOSEC) 20 mg capsule Take 1 capsule by mouth once daily. 30 capsule 2 clotrimazole (LOTRIMIN, CLOTRIM) 1 % cream APPLY TO AFFECTED AREA TWICE A DAY 28.4 g 2 albuterol HFA (PROVENTIL HFA, VENTOLIN HFA) 90 mcg/actuation inhaler Inhale 2 Puffs as instructed every 4 hours as needed for Wheezing/Shortness of Breath. 1 Inhaler 5 No current facility-administered medications for this visit. ALLERGIES Allergen Reactions Codeine Other: See Comments Nausea Review of Systems Answers submitted by the patient for this visit: Core Review of Systems (Submitted on 09/18/2022) Fever : No Night Sweats: No Recent Unintentional Weight Change: No Nasal Congestion: No Hearing Loss: No Vision Disturbance: No A Cough: No Difficulty Breathing?: No Chest Pain: No Irregular Heart Beat: No Leg Swelling: No Nausea: No Diarrhea: No Black Tarry Stools: No Difficulty Urinating?: No Awaken at Night More Than Once to Urinate?: Yes Joint Pain or Stiffness: No Muscle Aches: Yes Leg or Foot Discomfort at Night?: No A Rash: No Dizziness: No Headaches: No Memory Loss: No Seizures: No Previous Laboratory Results Component Latest Ref Rng & Units 04/24/2022 05/29/2022 05/30/2022 06/04/2022 08/29/2022 09/06/2022 Glucose 74 - 99 mg/dL 82 BUN 7 - 21 mg/dL 14 Creatinine 0.58 - 0.96 mg/dL 0.92 Sodium 136 - 144 mmol/L 137 Potassium 3.7 - 5.1 mmol/L 4.1 Chloride 97 - 105 mmol/L 100 CO2 22 - 30 mmol/L 28 Anion Gap 9 - 18 mmol/L 9 Calcium 8.5 - 10.2 mg/dL 10.3 (H) eGFR >=60 mL/min/1.73m 83 Cholesterol, Total <200 mg/dL 202 (H) Triglyceride <150 mg/dL 213 (H) HDL Cholesterol >39 mg/dL 57 Non HDL Cholesterol <130 mg/dL 145 (H) Fasting Time hrs 12 VLDL Cholesterol <30 mg/dL 43 (H) TC:HDL Ratio <5.10 3.54 LDL Cholesterol <100 mg/dL 102 (H) LDL:HDL Ratio <2.54 1.79 Creatinine Ur, per volume mg/dL 91 Creatinine Ur, per 24h 700 - 1600 mg/d 1895 (H) Free Cortisol ug/L, Urine ug/L 8.05 Cortisol ug/g Extension Work Instructor, Ur (UFRCRT) ug/g SECURITY SYSTEMS ENGINEER 8.85 Total Volume mL 2082 Hours Collected hr 24 Free Cortisol ug/day, Urine <=45.0 ug/d 16.8 Free Cortisol UR, Interpretation See Note Albumin 3.9 - 4.9 g/dL 4.5 4.1 Bilirubin, Total 0.2 - 1.3 mg/dL 0.6 0.5 Bilirubin, Conjug <0.2 mg/dL <0.2 <0.2 Alkaline Phosphatase 34 - 123 U/L 107 93 AST 13 - 35 U/L 65 (H) 36 (H) ALT 7 - 38 U/L 97 (H) 50 (H) Protein, Total 6.3 - 8.0 g/dL 7.6 7.1 Creatinine 24 hr Ur 0.595 - 2.113 g/24 hr 1.997 Period hr 24 Urine Volume 24 hour mL 2,082 Cortisol, Saliva ug/dL See Note See Note TSH 0.270 - 4.200 mIU/L 1.300 Free T4 0.9 - 1.7 ng/dL 1.3 Impression/Recommendations 36 year old female is currently evaluated for: ASSESSMENT/PLAN: 1. Class 3 obesity (HCC) - ICD9: 278.01, ICD10: E66.01 (primary diagnosis) 2. BMI 50.0-59.9, adult (HCC) - ICD9: V85.43, ICD10: Z68.43 Weight decreasing - Behavioral intervention, - Pharmacological intervention, and - Medical nutrition therapy with dietitian and clean room operator Start phentermine 37.5 mg every day. Discussed regulations - PHENTERMINE 37.5 MG TABLET 3. PCOS (polycystic ovarian syndrome) - ICD9: 256.4, ICD10: E28.2 Weight loss as above - PHENTERMINE 37.5 MG TABLET 4. Insulin resistance - ICD9: 277.7, ICD10: E88.81 Weight loss as above - PHENTERMINE 37.5 MG TABLET 5. History of bariatric surgery - ICD9: V45.86, ICD10: Z98.84 I spent a total of 21 minutes on the date of the service which included preparing to see the patient, completing clinical documentation, obtaining and/or reviewing separately obtained history, counseling and educating the patient/family/caregiver, and ordering medications, tests, or procedures. Viviane Interiano MD documented in this encounter [facility] 08-29-2022 History of Present illness Narrative This note was created using [employer]. Subjective Sonia Lara is a 36 year old female here today for hypertension follow-up visit. I reviewed past medical, surgical, social, and family histories today and updated chart. Allergies, chronic medications, and supplements were also reviewed. Feeling well today. Denies chest pains, palpitations, headache, dizziness, leg swelling, and vision changes. Diet - overall not terrible Still can't eat a lot in one sitting Caffeine - coffee in the morning and maybe diet coke later Lots of water Exercise - not as much as she shoudl Tobacco use - none Alcohol use - rarely Medication compliance - she never forgets Medication side effects - none Working with weight loss mail service coordinator - started contrave caused headaches and wasn't feeling well so se stopped it. Dr Sahu is checking for cushings PAST MEDICAL HISTORY Diagnosis Date Abnormal Pap smear of cervix Acquired hypothyroidism - check TSH Amenorrhea, unspecified - pt to track periods and we will discuss at next visit Anemia complicating , third trimester 01/28/2019 Binge eating disorder - refer to Dr. 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 Katz, Infertility, female Morbid obesity (HCC) - continue to follow weight watcher's progam, exercise 1 hour per day, goal of 30 pounds in 3 months, then will recheck triglycerides. Obesity PCOS (polycystic ovarian syndrome) depression 01/05/2020 Primary hypertension 02/28/2022 Seasonal allergies PAST SURGICAL HISTORY Procedure Laterality Date BARIATRIC SURGERY HX 12/13/[address] Katz SNGL 04/12/2019 C/S low transverse CAUTERY CERVIX CRYOCAUTERY INITIAL/REPEAT 2006 DELIVERY ONLY 05/17/2021 LTCS D&C SUCTION 06/22/2020 incomplete ab HERNIA REPAIR HX REVISION OF FOOT BONES Left 02/07/2013 Ganglion Cyst/Bone Spur removed, Bone shaved. Left Foot Dr. Pickard SALPINGECTOMY Bilateral 05/17/2021 at second c/s TONSILLECTOMY HX ALLERGIES Codeine MEDICATIONS hydroCHLOROthiazide 25 mg tablet TAKE 1 TABLET BY MOUTH EVERY DAY CONTRAVE 8-90 mg ER tablet Take two tablets by mouth twice a day levothyroxine (SYNTHROID) 100 mcg tablet Take 1 tablet by mouth once daily. fluticasone (FLONASE ALLERGY RELIEF) 50 mcg/actuation nasal spray Use 1 [place] in each nostril twice daily. omeprazole (PRILOSEC) 20 mg capsule Take 1 capsule by mouth once daily. clotrimazole (LOTRIMIN, CLOTRIM) 1 % cream APPLY TO AFFECTED AREA TWICE A DAY albuterol HFA (PROVENTIL HFA, VENTOLIN HFA) 90 mcg/actuation inhaler Inhale 2 Puffs as instructed every 4 hours as needed for Wheezing/Shortness of Breath. FAMILY HISTORY Problem Relation Age of Onset other (Diabetes mellitus) Father other (Thyroid disorder) Father Rheumatologic disease Mother other (Endometriosis) Mother other (fibromyalgia) Mother No Known Problems Brother Colon Cancer Paternal Grandfather No Known Problems Brother Rheumatologic disease Maternal Grandmother Cancer Maternal Grandfather Lung- Mesothelioma Social History Tobacco Use Smoking status: Never Smokeless tobacco: Never Vaping Use Vaping Use: Never used Substance Use Topics Alcohol use: Not Currently Comment: monthy use Drug use: Never Review of Systems Constitutional: Negative for appetite change, chills, fatigue, fever and unexpected weight change. HENT: Negative for congestion, ear pain, rhinorrhea and sore throat. Eyes: Negative for pain, discharge, itching and visual disturbance. Respiratory: Negative for cough, shortness of breath and wheezing. Cardiovascular: Negative for chest pain, palpitations and leg swelling. Gastrointestinal: Negative for abdominal pain, constipation, diarrhea, nausea and vomiting. Genitourinary: Negative for difficulty urinating. Musculoskeletal: Negative for arthralgias. Skin: Negative for rash. Neurological: Negative for dizziness, tremors, weakness and headaches. Psychiatric/Behavioral: Negative for dysphoric mood and sleep disturbance. The patient is not nervous/anxious. Objective BP 124/78 (BP Site: Right Arm, BP Position: Sitting, BP Cuff Size: Thigh) Pulse 79 Temp 36.8 C (98.3 F) Ht 152.4 cm (5') Wt (!) 139.7 kg (308 lb) LMP 08/21/2020 (Approximate) SpO2 98% BMI 60.15 kg/m Physical Exam Constitutional: Appearance: Normal appearance. She is well-developed. She is not diaphoretic. HENT: Head: Normocephalic and atraumatic. Right Ear: Hearing, tympanic membrane, ear canal and external ear normal. Left Ear: Hearing, tympanic membrane, ear canal and external ear normal. Nose: Nose normal. Mouth/Throat: Lips: [place]. Mouth: Mucous membranes are moist. Pharynx: Oropharynx is clear. Eyes: General: Lids are normal. Conjunctiva/sclera: Conjunctivae normal. Pupils: Pupils are equal, round, and reactive to light. Neck: Vascular: Normal carotid pulses. No carotid bruit or JVD. Cardiovascular: Rate and Rhythm: Normal rate and regular rhythm. Pulses: Carotid pulses are 2+ on the right side and 2+ on the left side. Radial pulses are 2+ on the right side and 2+ on the left side. Dorsalis pedis pulses are 2+ on the right side and 2+ on the left side. Heart sounds: Normal heart sounds. No murmur heard. Pulmonary: Effort: Pulmonary effort is normal. Breath sounds: Normal breath sounds. No wheezing, rhonchi or rales. Abdominal: General: Bowel sounds are normal. Palpations: Abdomen is soft. Tenderness: There is no abdominal tenderness. Musculoskeletal: General: Normal range of motion. Cervical back: Normal range of motion and neck supple. Right lower leg: No edema. Left lower leg: No edema. Lymphadenopathy: Cervical: No cervical adenopathy. Skin: General: Skin is warm and dry. Findings: No rash. Neurological: General: No focal deficit present. Mental Status: She is alert and oriented to person, place, and time. Cranial Nerves: No cranial nerve deficit. Sensory: Sensation is intact. Motor: Motor function is intact. Coordination: Coordination is intact. Gait: Gait is intact. Psychiatric: Attention and Perception: Attention and perception normal. Mood and Affect: Mood and affect normal. Speech: Speech normal. Behavior: Behavior normal. Behavior is cooperative. Thought Content: Thought content normal. Judgment: Judgment normal. Component Latest Ref Rng & Units 04/24/2022 Albumin 3.9 - 4.9 g/dL 4.5 Bilirubin, Total 0.2 - 1.3 mg/dL 0.6 Bilirubin, Conjug <0.2 mg/dL <0.2 Alkaline Phosphatase 34 - 123 U/L 107 AST 13 - 35 U/L 65 (H) ALT 7 - 38 U/L 97 (H) Protein, Total 6.3 - 8.0 g/dL 7.6 TSH 0.270 - 4.200 mIU/L 1.300 Free T4 0.9 - 1.7 ng/dL 1.3 ASSESSMENT/PLAN: 1. Primary hypertension - ICD9: 401.9, ICD10: I10 (primary diagnosis) - Controlled - Continue current medications - HCTZ 25 mg daily - Recommend home blood pressure monitoring, to bring results to next visit - Encouraged sodium restriction, DASH or Mediterranean diet - Recommend regular aerobic exercise - Follow up in 6 months for hypertension visit - LIPID PANEL BASIC 2. Fatty (change of) liver, not elsewhere classified - ICD9: 571.8, ICD10: K76.0 Check hepatic panel Continue low fat diet, avoid alcohol and acetaminophen - HEPATIC FUNCTION PNL 3. Hypothyroidism, acquired - ICD9: 244.9, ICD10: E03.9 - Instructed patient on importance of taking on an empty stomach either first thing in the morning or at bedtime. - continue current dose of Synthroid 0.100 mg - Follow up in 6 months Continue care with endocrionology - LEVOTHYROXINE 100 MCG TABLET Farheen Almendarez APRN.FRUIT HARVESTER documented in this encounter [facility] 07-10-2022 Miscellaneous Notes pharmacy electronically requesting refills as follows: Last seen 05/29/22 . Last refill 02/28/22 . Requested Prescriptions Pending Prescriptions Disp Refills hydroCHLOROthiazide 25 mg tablet [Pharmacy Med Name: HYDROCHLOROTHIAZIDE 25 MG TAB] 90 tablet 1 Sig: TAKE 1 TABLET BY MOUTH EVERY DAY Please review and advise. Rajni Bernard MA documented in this encounter [facility] 07-03-2022 History of Present illness Narrative Agree with MA documentation Farheen Almendarez APRN.GRISELDA Patient is here for BP check. Her current BP medications are HCTZ 25 mg BP:124/80 BP: 126/80 Per PCP continue meds and monitoring, f/u with a regular office visit. Kiera Headley MA documented in this encounter [facility] 05-31-2022 History of Present illness Narrative Virtual Visit (Audio/Visual)I have discussed the nature of this visit with the patient which will occur via [facility] (Phone, Virtual Visit) and she agrees to proceed with this interaction. Regina is doing great! She has been very consistent since we met with cardio (Peloton and treadmill) the last two weeks her kids have been sick so finding time has been difficult. We discussed the benefits of incorporating resistance training to her routine. She is going to try 1-2x/week and we will see how she feels when we meet next. Next follow up: 07/12/2022 at 9:00am. [phone] documented in this encounter [facility] 05-30-2022 Miscellaneous Notes Patient notified. Mary Rose MA ----- Message from Farheen Almendarez APRN.FRUIT HARVESTER sent at 05/29/2022 5:30 PM EST ----- Please notify patient results are normal. Thank you. Farheen Almednarez APRN.FRUIT HARVESTER documented in this encounter [facility] 05-29-2022 History of Present illness Narrative This note was created using [employer]. Subjective Sonia Lara is a 36 year old female here today for hypertension follow-up visit. I reviewed past medical, surgical, social, and family histories today and updated chart. Allergies, chronic medications, and supplements were also reviewed. Feeling well today. Denies chest pains, palpitations, headache, dizziness, leg swelling, and vision changes. Minor HAs occasionally Diet - Doing weight watchers, working with mail service coordinator Worried about the new medications for weight loss - has elevated blood pressure and history of depression. Has never had suicidal thoughts with it though Caffeine - 1-2 cups coffee am, 1 diet coke Drinks a lot of water Exercise - working out on peloton Tobacco use - none Alcohol use - rarely Medication compliance - Taking HCTZ at bedtime Medication side effects - none Home blood pressure readings - highest readings 140s/90s, usually in normal range Will get a mild headache in back of head and the BP will be up PAST MEDICAL HISTORY Diagnosis Date Abnormal Pap smear of cervix Acquired hypothyroidism - check TSH Amenorrhea, unspecified - pt to track periods and we will discuss at next visit Anemia complicating , third trimester 01/28/2019 Binge eating disorder - refer to Dr. 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 Katz, Infertility, female Morbid obesity (HCC) - continue to follow weight watcher's progam, exercise 1 hour per day, goal of 30 pounds in 3 months, then will recheck triglycerides. Obesity PCOS (polycystic ovarian syndrome) depression 01/05/2020 Primary hypertension 02/28/2022 Seasonal allergies PAST SURGICAL HISTORY Procedure Laterality Date BARIATRIC SURGERY HX 12/13/[address] Katz SNGL 04/12/2019 C/S low transverse CAUTERY CERVIX CRYOCAUTERY INITIAL/REPEAT 2006 DELIVERY ONLY 05/17/2021 LTCS D&C SUCTION 06/22/2020 incomplete ab HERNIA REPAIR HX REVISION OF FOOT BONES Left 02/07/2013 Ganglion Cyst/Bone Spur removed, Bone shaved. Left Foot Dr. Pickard SALPINGECTOMY Bilateral 05/17/2021 at second c/s TONSILLECTOMY HX ALLERGIES Codeine MEDICATIONS naltrexone-bupropion (CONTRAVE) 8-90 mg ER tablet Take 2 tablets by mouth twice daily. hydroCHLOROthiazide (HYDRODIURIL, ESIDRIX) 25 mg tablet Take 1 tablet by mouth once daily. levothyroxine (SYNTHROID) 100 mcg tablet Take 1 tablet by mouth once daily. fluticasone (FLONASE ALLERGY RELIEF) 50 mcg/actuation nasal spray Use 1 [place] in each nostril twice daily. omeprazole (PRILOSEC) 20 mg capsule Take 1 capsule by mouth once daily. clotrimazole (LOTRIMIN, CLOTRIM) 1 % cream APPLY TO AFFECTED AREA TWICE A DAY albuterol HFA (PROVENTIL HFA, VENTOLIN HFA) 90 mcg/actuation inhaler Inhale 2 Puffs as instructed every 4 hours as needed for Wheezing/Shortness of Breath. FAMILY HISTORY Problem Relation Age of Onset other (Diabetes mellitus) Father other (Thyroid disorder) Father Rheumatologic disease Mother other (Endometriosis) Mother other (fibromyalgia) Mother No Known Problems Brother Colon Cancer Paternal Grandfather No Known Problems Brother Rheumatologic disease Maternal Grandmother Cancer Maternal Grandfather Lung- Mesothelioma Social History Tobacco Use Smoking status: Never Smokeless tobacco: Never Vaping Use Vaping Use: Never used Substance Use Topics Alcohol use: Not Currently Comment: monthy use Drug use: Never Review of Systems Constitutional: Negative for appetite change, chills, fatigue, fever and unexpected weight change. HENT: Negative for congestion, ear pain, rhinorrhea and sore throat. Eyes: Negative for pain, discharge, itching and visual disturbance. Respiratory: Negative for cough, shortness of breath and wheezing. Cardiovascular: Negative for chest pain, palpitations and leg swelling. Gastrointestinal: Negative for abdominal pain, constipation, diarrhea, nausea and vomiting. Genitourinary: Negative for difficulty urinating. Musculoskeletal: Negative for arthralgias. Skin: Negative for rash. Neurological: Positive for headaches. Negative for dizziness, tremors and weakness. Psychiatric/Behavioral: Negative for dysphoric mood and sleep disturbance. The patient is not nervous/anxious. Objective BP 130/90 Pulse 78 Temp 36.6 C (97.8 F) Ht 162.6 cm (5' 4) Wt (!) 140.6 kg (310 lb) LMP 08/21/2020 (Approximate) SpO2 98% BMI 53.21 kg/m BP Recheck 134 86 Physical Exam Constitutional: Appearance: Normal appearance. She is well-developed. She is not diaphoretic. HENT: Head: Normocephalic and atraumatic. Right Ear: Hearing, tympanic membrane, ear canal and external ear normal. Left Ear: Hearing, tympanic membrane, ear canal and external ear normal. Nose: Nose normal. Mouth/Throat: Lips: [place]. Mouth: Mucous membranes are moist. Pharynx: Oropharynx is clear. Eyes: General: Lids are normal. Conjunctiva/sclera: Conjunctivae normal. Pupils: Pupils are equal, round, and reactive to light. Neck: Vascular: Normal carotid pulses. No carotid bruit or JVD. Cardiovascular: Rate and Rhythm: Normal rate and regular rhythm. Pulses: Carotid pulses are 2+ on the right side and 2+ on the left side. Radial pulses are 2+ on the right side and 2+ on the left side. Dorsalis pedis pulses are 2+ on the right side and 2+ on the left side. Heart sounds: Normal heart sounds. No murmur heard. Pulmonary: Effort: Pulmonary effort is normal. Breath sounds: Normal breath sounds. No wheezing, rhonchi or rales. Abdominal: General: Bowel sounds are normal. Palpations: Abdomen is soft. Tenderness: There is no abdominal tenderness. Musculoskeletal: General: Normal range of motion. Cervical back: Normal range of motion and neck supple. Right lower leg: No edema. Left lower leg: No edema. Lymphadenopathy: Cervical: No cervical adenopathy. Skin: General: Skin is warm and dry. Findings: No rash. Neurological: General: No focal deficit present. Mental Status: She is alert and oriented to person, place, and time. Cranial Nerves: No cranial nerve deficit. Sensory: Sensation is intact. Motor: Motor function is intact. Coordination: Coordination is intact. Gait: Gait is intact. Psychiatric: Attention and Perception: Attention and perception normal. Mood and Affect: Mood and affect normal. Speech: Speech normal. Behavior: Behavior normal. Behavior is cooperative. Thought Content: Thought content normal. Judgment: Judgment normal. Component Latest Ref Rng & Units 02/08/2022 04/24/2022 Protein, Total 6.3 - 8.0 g/dL 7.5 7.6 Albumin 3.9 - 4.9 g/dL 4.4 4.5 Calcium 8.5 - 10.2 mg/dL 10.1 Bilirubin, Total 0.2 - 1.3 mg/dL 0.5 0.6 Alkaline Phosphatase 34 - 123 U/L 102 107 AST 13 - 35 U/L 71 (H) 65 (H) ALT 7 - 38 U/L 86 (H) 97 (H) Glucose 74 - 99 mg/dL 98 BUN 7 - 21 mg/dL 12 Creatinine 0.58 - 0.96 mg/dL 0.84 Sodium 136 - 144 mmol/L 138 Potassium 3.7 - 5.1 mmol/L 4.0 Chloride 97 - 105 mmol/L 102 CO2 22 - 30 mmol/L 26 Anion Gap 9 - 18 mmol/L 10 eGFR >=60 mL/min/1.73m 92 Bilirubin, Conjug <0.2 mg/dL <0.2 Hemoglobin A1C 4.3 - 5.6 % 5.4 Estimated Average Glucose mg/dL 108 TSH 0.270 - 4.200 mIU/L 1.300 Free T4 0.9 - 1.7 ng/dL 1.3 ASSESSMENT/PLAN: 1. Primary hypertension - ICD9: 401.9, ICD10: I10 (primary diagnosis) - suboptimal control - Continue current medication(s) - HCTZ 25 mg daily - Begin lisinopril (Zestril/Prinivil) 10 mg daily - Recommended regular aerobic exercise. - Recommend home blood pressure monitoring, to bring results in on next visit 1 month NV BP CHeck - Recheck in 3 months, sooner should new symptoms or problems arise. - Reviewed risks of HTN and principles of treatment - Goal of BP <130/80 - LISINOPRIL 10 MG TABLET - BASIC METABOLIC PNL - ECG COMPLETE 2. Depression screening - ICD9: V79.0, ICD10: Z13.31 - DEPRESSION SCREENING/ASSESSMENT Farheen Almendarez APRN.GRISELDA documented in this encounter [facility] 04-19-2022 Miscellaneous Notes See mychart message 04/12/22 Viviane Interiano MD Cover My Meds DUVAL: [id number] Per Insurance, CONTRAVE 8-9 mg ER Tablets needs PA Please advise is you want to change to one of the following that does NOT need a PA Drug Name PA Requirement* Contrave 8-90MG er tablets Required Benzphetamine HCl Not Required Diethylpropion HCl Not Required Lomaira Not Required Phendimetrazine Tartrate Not Required Phentermine HCl Not Required Plenity Not Required Imcivree Required Qsymia Required Saxenda Required Wegovy Required Xenical Required Vannessa Chew [facility] [address] [place] [address] Pharmacy phone: [phone] Pharmacy fax: [phone] documented in this encounter [facility] 04-14-2022 History of Present illness Narrative Nutrition Therapy Initial Assessment This visit was conducted as a virtual visit. Pt consented and is appropriate. Nutrition Diagnosis: Overweight/obesity, related to, excess energy intake and physical inactivity, as evidenced by BMI above normative standard for age and gender. RECOMMENDED MALNUTRITION DIAGNOSIS: UNABLE TO IDENTIFY MALNUTRITION AT THIS TIME NUTRITION CARE PLAN Nutrition Intervention 04/14/2022: -10oz lean protein -1700 kcal meals 4-6 hrs apart continue to track -weight self once a week measure once a month - be more mindful - continue with exercise Nutrition Monitoring & Evaluation: wt and labs Need for Follow up: as needed Patient presents with PCOS and wt loss. Prescribed Contrave by Endo. Been through this many times, just need to get re motivated. Had Gastric Sleeve in 2017. Has also done Weight Watchers:tracking, portions Patient's symptoms are: None Diet History: Breakfast - water coffee cream Snack - 10a egg avocado or burrito w low carb tortilla or yogurt before skip Lunch - noon chicken tortilla soup/ham and cheese on wrap /veggies and dip/unwich before kid food chicken nuggets and fries quick foods Snack - Dinner - 5p baked chick legs gr beans val rice/ chicken wrap jayme slaw/steak gr beans/ chicken parm small amt pasta before similar larger portions Snack - Beverages - water coffee Alcohol- none Vitamins/Supplements - Activity: 3-4 times a week [place] Bike or treadmill 20-30minute Anthropometrics: Height: Last 1 Encounter Ht Readings: Date: Ht: 02/28/2022 162.6 cm (5' 4) Current weight: Last 1 Encounter Wt Readings: Date: Wt: 02/28/2022 143.3 kg (316 lb) There is no height or weight on file to calculate BMI. Resting Metabolic Rate: 2110 Current Outpatient Medications on File Prior to Visit Medication Sig naltrexone-bupropion (CONTRAVE) 8-90 mg ER tablet Take 2 tablets by mouth twice daily. hydroCHLOROthiazide (HYDRODIURIL, ESIDRIX) 25 mg tablet Take 1 tablet by mouth once daily. levothyroxine (SYNTHROID) 100 mcg tablet Take 1 tablet by mouth once daily. fluticasone (FLONASE ALLERGY RELIEF) 50 mcg/actuation nasal spray Use 1 [place] in each nostril twice daily. omeprazole (PRILOSEC) 20 mg capsule Take 1 capsule by mouth once daily. clotrimazole (LOTRIMIN, CLOTRIM) 1 % cream APPLY TO AFFECTED AREA TWICE A DAY albuterol HFA (PROVENTIL HFA, VENTOLIN HFA) 90 mcg/actuation inhaler Inhale 2 Puffs as instructed every 4 hours as needed for Wheezing/Shortness of Breath. No current facility-administered medications on file prior to visit. Malnutrition Screening Significant unintentional weight loss? No Eating less than 75% of usual intake for more than 2 weeks? No Potential Signs of Inflammation: no identifiable sources Education Materials Provided: Mindful Eating READINESS TO LEARN Cognitive ability: Alert and oriented Motivation to learn: Interested Family support: Unable to assess - Family not present Instruction provided to: Patient Patient learns best by: Individual Instruction Factors affecting learning: Other somewhat distracted by 3 year old Physical limitations affecting learning: None MNT Billing Type: Initial Assess/15 min 4 units SIGNATURE: Herlinda Ortiz MS RD CDCES PATIENT NAME: Sonia Lara DATE: April 14, 2022 TIME: 9:07 AM PAGER: documented in this encounter [facility] 04-10-2022 History of Present illness Narrative Spoke to pt, scheduled Virtual appt 07-10 Images from the original note were not included. Endocrinology Follow Up Assessment This is a virtual visit using [employer] video visit. It required patient-provider interaction for the medical decision making as documented below. Date: April 10, 2022 AMERICO: 02/13/22 History of Present Illness Sonia Lara is a 36 year old female with PMH of obesity, PCOS, CORY, exercise-induced asthma and fatty liver is here for evaluation of obesity and associated medical problems. Weight History: Issues at onset of weight gain: Reports weight issues most of her life. Was active in high school and graduated with 160-180 pounds. Gained more weight during college and moving forward. Had gastric sleeve in 2017 at . Pre-surgical weight: 317 pounds and lowest weight ~220 pounds around one year after surgery. She maintained the weight for a while and was going through fertility treatment and was regaining the weight. First : with letrozole, gained ~60 pounds. Delivered 03/2019. Second : delivered May 2020, but lost baby unfortunately. Third : delivered Apr 2021. Gained 20 pounds. Had pre-eclampsia. 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 Works late nights and have evening snacks. Current weight: 305 pounds Patient's Goal: 200 pounds Compelling reason improve health for her children and believes it is an attainable number Weight Loss Attempts: Gastric sleeve, caloric restriction Steroid/medications which may contribute to obesity: flonase DIET: Breakfast: coffee with creamer, eggs with toast, yogurt Lunch: sandwich, chicken nuggets, soup, left overs Dinner: protein, carb and veggies, like chicken or pork chops, meatloaf with rice or potatoes and corn, green [place] Snack: chips, cheese Patient usually drinks coffee, unsweetened iced tea and 1 diet coke per day. Alcohol: none PHYSICAL ACTIVITY: Not much. Tries to walk on the treadmill but reports being busy with kids and work SLEEP HABITS goes to bed ~8 PM but sometimes 1 AM and wakes up ~6:30 AM INTERVAL HISTORY: 04/10/22 Reports for the last 3 weeks has been exercising more and tracking her meals. Riding her [employer] bike 3-4 times per week for 20-30 minutes. Monitoring her carbs. Current weight: 304 pounds Has an appointment on with dietitian next week and with clean room operator. Pending to have two saliva cortisol tests. Needs to make follow up appointment with Dr. Sahu. Medications, Allergies Current Outpatient Medications Medication Sig Dispense Refill hydroCHLOROthiazide (HYDRODIURIL, ESIDRIX) 25 mg tablet Take 1 tablet by mouth once daily. 30 tablet 5 levothyroxine (SYNTHROID) 100 mcg tablet Take 1 tablet by mouth once daily. 90 tablet 3 fluticasone (FLONASE ALLERGY RELIEF) 50 mcg/actuation nasal spray Use 1 [place] in each nostril twice daily. 1 Each 0 omeprazole (PRILOSEC) 20 mg capsule Take 1 capsule by mouth once daily. 30 capsule 2 clotrimazole (LOTRIMIN, CLOTRIM) 1 % cream APPLY TO AFFECTED AREA TWICE A DAY 28.4 g 2 albuterol HFA (PROVENTIL HFA, VENTOLIN HFA) 90 mcg/actuation inhaler Inhale 2 Puffs as instructed every 4 hours as needed for Wheezing/Shortness of Breath. 1 Inhaler 5 No current facility-administered medications for this visit. ALLERGIES Allergen Reactions Codeine Other: See Comments Nausea Review of Systems Answers submitted by the patient for this visit: Core Review of Systems (Submitted on 04/10/2022) Night Sweats: No Recent Unintentional Weight Change: No Nasal Congestion: No Hearing Loss: No Vision Disturbance: No A Cough: No Difficulty Breathing?: No Chest Pain: No Irregular Heart Beat: No Leg Swelling: No Nausea: No Diarrhea: No [place] Stools: No Difficulty Urinating?: No Awaken at Night More Than Once to Urinate?: Yes Joint Pain or Stiffness: Yes Muscle Aches: Yes Leg or Foot Discomfort at Night?: No A Rash: No Dizziness: No Headaches: No Memory Loss: No Seizures: No Physical examination GENERAL: Well nourished, well hydrated, in no distress, and oriented x 3 COMMUNICATION: Hearing: normal; VOICE: normal EYES: no thyroid eye signs and normal conjunctiva Previous Laboratory Results Component Latest Ref Rng & Units 02/08/2022 Protein, Total 6.3 - 8.0 g/dL 7.5 Albumin 3.9 - 4.9 g/dL 4.4 Calcium 8.5 - 10.2 mg/dL 10.1 Bilirubin, Total 0.2 - 1.3 mg/dL 0.5 Alkaline Phosphatase 34 - 123 U/L 102 AST 13 - 35 U/L 71 (H) ALT 7 - 38 U/L 86 (H) Glucose 74 - 99 mg/dL 98 BUN 7 - 21 mg/dL 12 Creatinine 0.58 - 0.96 mg/dL 0.84 Sodium 136 - 144 mmol/L 138 Potassium 3.7 - 5.1 mmol/L 4.0 Chloride 97 - 105 mmol/L 102 CO2 22 - 30 mmol/L 26 Anion Gap 9 - 18 mmol/L 10 eGFR >=60 mL/min/1.73m 92 Hemoglobin A1C 4.3 - 5.6 % 5.4 Estimated Average Glucose mg/dL 108 Testosterone Free <0.13 - 1.00 ng/dL 1.09 (H) Testosterone 8 - 60 ng/dL 39 Direct Renin 4.2 - 52.2 pg/mL 9.2 Patient Upright or Supine Upright TSH 0.270 - 4.200 mIU/L 11.830 (H) Free T4 0.9 - 1.7 ng/dL 0.7 (L) Insulin 3.0 - 25.0 mU/L 23.4 Hydroxyprogesterone <=206.00 ng/dL 31.81 DHEA-S 60.9 - 337.0 ug/dL 67.7 Aldosterone 0.0 - <35.4 ng/dL 8.3 Impression/Recommendations 36 year old female is currently evaluated for: ASSESSMENT/PLAN: 1. Class 3 obesity (HCC) - ICD9: 278.01, ICD10: E66.01 (primary diagnosis) 2. BMI 50.0-59.9, adult (HCC) - ICD9: V85.43, ICD10: Z68.43 Stable - Behavioral intervention, - Pharmacological intervention, and - Medical nutrition therapy with dietitian Oral: Initial: One tablet (naltrexone 8 mg/bupropion 90 mg) once daily in the morning for 1 week; increase as tolerated in weekly intervals: 1 tablet twice daily for 1 week; then 2 tablets in the morning and 1 tablet in the evening for 1 week; and then 2 tablets twice daily (maximum dose: 4 tablets/day [naltrexone 32 mg/bupropion 360 mg per day]). Consider discontinuation if weight loss is <4% to 5% of baseline after 3 months - CONTRAVE 8 MG-90 MG TABLET,EXTENDED RELEASE 3. PCOS (polycystic ovarian syndrome) - ICD9: 256.4, ICD10: E28.2 4. Insulin resistance - ICD9: 277.7, ICD10: E88.81 Weight loss as above - CONTRAVE 8 MG-90 MG TABLET,EXTENDED RELEASE I spent a total of 20 minutes on the date of the service which included preparing to see the patient, [id number] patient care, completing clinical documentation, obtaining and/or reviewing separately obtained history, counseling and educating the patient/family/caregiver, and ordering medications, tests, or procedures. Viviane Interiano MD documented in this encounter [facility] 04-05-2022 Miscellaneous Notes Patient is seeing endocrinology and has thyroid labs ordered for April. Farheen Almendarez APRN.GRISELDA ----- Message from Mary Rose MA sent at 02/08/2022 12:22 PM EST ----- Remind pt. Time to recheck TSH after dose change. Mary Rose MA documented in this encounter [facility] 04-03-2022 History of Present illness Narrative All information left on patients voicemail. (Ok per lifetime consent). Mary Rose MA BP is at goal continue HCTZ. Dr. Sahu the mail service coordinator has thyroid labs ordered, she have them drawn after 05/23/22. Farheen Almendarez APRN.GRISELDA Patient is here for BP check. Her current BP medication is HCTZ 25 mg. Patient states that she only checks her bP when she is having a headaches. BP:128/76 Patient would like to know if she is due for TSH labs. Kiera Headley MA documented in this encounter [facility] 03-22-2022 Miscellaneous Notes Pharmacy requesting refills: Last office visit 02/28/2022. Last refil refills denied rx . Requested Prescriptions Pending Prescriptions Disp Refills hydroCHLOROthiazide (HYDRODIURIL, ESIDRIX) 25 mg tablet [Pharmacy Med Name: HYDROCHLOROTHIAZIDE 25 MG TAB] 30 tablet 5 Sig: TAKE 1 TABLET BY MOUTH EVERY DAY Please review and advise. Mary Rose MA documented in this encounter [facility] 02-20-2022 History of Present illness Narrative Virtual Visit (Audio/Visual)I have discussed the nature of this visit with the patient which will occur via [facility] (Phone, Virtual Visit) and she agrees to proceed with this interaction. Regina has currently been doing some walking on the [place] 1 day/week. She does have exercise induced asthma, but she has an inhaler. She states she has no ortho limitations. At home she has a TM, Shareable Inkn bike, FW, and a Functional animal attendants and trainers machine. Denise will meet her for a Virtual Exercise Prescription on 04/13/22 at 9:00 am Based on the ACSM's Guidelines for Exercise Testing & Prescription, the patient will not require a stress test prior to receiving an exercise prescription. documented in this encounter [facility] 02-07-2022 Instructions Candi Sahu MD - 02/07/2022 9:09 AM EST - Blood tests in the morning, fasting - Please do saliva tests for cortisol twice (instructions below) - I recommend meeting with the weight management clinic to discuss interventions to assist you with weight loss Preparation Instructions: -DO NOT eat 1 hour prior to collection. -DO NOT consume alcohol 12 hours prior to collection. -DO NOT collect immediately after brushing teeth, or after any activity that may cause gums to bleed. Collection Notes: -Specimens must be collected between 11:00pm and 1:00am. -SKIP one day between collections (ex. If first specimen is collected on Sunday, skip Sunday, and collect second specimen on Sunday). How to Take a Sample -Remove the top cap of the tube. You will see the swab. -Place the swab directly into your mouth by tipping the tube so that the swab falls into your mouth. -Do not touch the swab with your fingers. -Keep the swab in your mouth for two minutes. Roll the swab around in your mouth. Do not chew the swab. -Put the swab back into the container without touching the swab. -Put the cap back on the tube. Make sure it is closed tightly. -Write the your name, date of and the time the sample was collected on the label. -Store the specimen in the refrigerator. documented in this encounter [facility] 02-07-2022 History of Present illness Narrative ENDOCRINOLOGY CLINIC NOTE Ms. Lara is a pleasant 36 year old female with hypothyroidism, fatty liver disease, PCOS, obesity was referred by Farheen Almendarez APRN.CNP for evaluation and management of hypothyroidism, insulin resistance and PCOS HPI Ms. Lara had sleeve gastrectomy in 2017, and lost 100 lbs after surgery. She reported fatigue, and weight gain, and her weight is now 60 lbs more than what it was before her 1st . She had a son 3 years ago, and another son in 04/2021. . She required letrozole for the first , but did not require assistance for the second one. No significant acne, hirsutism, or voice changes. She had planned bilateral salpingectomy during her second CS per patient desire. Prior to pernancy, her periods were irregular. She did not have periods since her second delivery in 04/2021, until recently. She reported cramps and hot flashes every month. She reported some easy bruising but but no muscle weakness, kidney stones or fractures. She takes levothyroxine 50 mcg, and has been on this dose for 3 years. Of note, she was recently diagnosed with high blood pressure and is being followed by PCP PAST MEDICAL HISTORY Diagnosis Date Abnormal Pap smear of cervix Acquired hypothyroidism - check TSH Amenorrhea, unspecified - pt to track periods and we will discuss at next visit Anemia complicating , third trimester 01/28/2019 Binge eating disorder - refer to Dr. 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 Katz, Infertility, female Morbid obesity (HCC) - continue to follow weight watcher's progam, exercise 1 hour per day, goal of 30 pounds in 3 months, then will recheck triglycerides. Obesity PCOS (polycystic ovarian syndrome) depression 01/05/2020 Seasonal allergies PAST SURGICAL HISTORY Procedure Laterality Date BARIATRIC SURGERY HX 12/13/[address] Katz SNGL 04/12/2019 C/S low transverse CAUTERY CERVIX CRYOCAUTERY INITIAL/REPEAT 2006 DELIVERY ONLY 05/17/2021 LTCS D&C SUCTION 06/22/2020 incomplete ab HERNIA REPAIR HX REVISION OF FOOT BONES Left 02/07/2013 Ganglion Cyst/Bone Spur removed, Bone shaved. Left Foot Dr. Pickard SALPINGECTOMY Bilateral 05/17/2021 at second c/s TONSILLECTOMY HX FAMILY HISTORY Problem Relation Age of Onset other (Diabetes mellitus) Father other (Thyroid disorder) Father Rheumatologic disease Mother other (Endometriosis) Mother other (fibromyalgia) Mother No Known Problems Brother Colon Cancer Paternal Grandfather No Known Problems Brother Rheumatologic disease Maternal Grandmother Cancer Maternal Grandfather Lung- Mesothelioma Social History Tobacco Use Smoking status: Never Smokeless tobacco: Never Vaping Use Vaping Use: Never used Substance Use Topics Alcohol use: Not Currently Comment: monthy use Drug use: Never (Not in a hospital admission) Allergies As of Date: 02/07/2022 Allergen Noted Reaction CODEINE 06/29/2010 Other: See Comments Fully Assessed 02/06/2022 Current Outpatient Medications Medication Sig Dispense Refill doxycycline hyclate (VIBRAMYCIN) 100 mg capsule Take 1 capsule by mouth twice daily for 10 days. 20 capsule 0 fluticasone (FLONASE ALLERGY RELIEF) 50 mcg/actuation nasal spray Use 1 [place] in each nostril twice daily. 1 Each 0 guaiFENesin (MUCINEX) 600 mg 12 hr tablet Take 1 tablet by mouth twice daily for 7 days. 14 tablet 0 clotrimazole (LOTRIMIN, CLOTRIM) 1 % cream APPLY TO AFFECTED AREA TWICE A DAY 28.4 g 2 levothyroxine (SYNTHROID) 50 mcg tablet Take 1 tablet by mouth once daily. 90 tablet 1 albuterol HFA (PROVENTIL HFA, VENTOLIN HFA) 90 mcg/actuation inhaler Inhale 2 Puffs as instructed every 4 hours as needed for Wheezing/Shortness of Breath. 1 Inhaler 5 Xirycsbn-Yo-Rzx-Fe-FA tab Take 1 tablet by mouth. omeprazole (PRILOSEC) 20 mg capsule Take 1 capsule by mouth once daily. 30 capsule 2 calcium carbonate (CALCIUM 600 ORAL) Take by mouth. (Patient not taking: Reported on 02/07/2022) iron,carbonyl (IRON CHEWS ORAL) Take by mouth. (Patient not taking: Reported on 02/07/2022) No current facility-administered medications for this visit. COMPLETE REVIEW OF SYSTEMS: 10 point review of systems was negative other than what is mentioned in the H&P PHYSICAL EXAM: 02/07/22 0843 BP: 151/89 Pulse: 69 SpO2: 98% Weight: (!) 141.1 kg (311 lb) Height: 162.6 cm (5' 4) General: NAD, alert and cooperative, mild facial plethora HEENT: EOMI, no proptosis/stare. Neck: supple with full ROM. No thyromegaly or palpable nodules. Mild acanthosis nigricans on the back of the neck, with slight supraclavicular fullness bilaterally Cardiovascular: RRR, +S1 and S2, no MRG appreciated Lungs: Clear to auscultation bilaterally Abdomen: soft, non-tender, non-distended, no dark striae Extremities: No LE oedema Neuro: Alert and oriented. Upper extremity strength appears to be grossly normal on exam Psych: Normal affect Labs: 08/03/21 10:47 Sodium 140 Potassium 3.9 Chloride 103 CO2 25 BUN 10 Creatinine 0.83 Glucose 84 Protein, Total 7.1 Calcium 9.9 Albumin 4.1 Bilirubin, Total 0.3 Alkaline Phosphatase 105 ALT 19 AST 16 Anion Gap 12 eGFR 94 Assessment and Recommendations: Ms. Lara is a pleasant 36-year-old woman presented for evaluation for possible PCOS and insulin resistance. She required fertility assistance with her first but not with the second one. She reported fatigue and weight gain, despite having gastric sleeve surgery in 2017. There is no hirsutism or significant acne, and she did not have periods following her second delivery, until recently. However, she has been having hot flashes and cramps every month We will check her testosterone, insulin, CMP, TFTs, DHEA-S, 17-OH progesterone, in addition to evaluating for [place] syndrome by doing salivary cortisol x2. We also discussed referral to the weight management clinic for formal discussion regarding medical and/or surgical interventions for weight loss. Given the recent diagnosis of HTN at a relatively young age, I will check her aldosterone and renin. I will update her about the results via menuvoxt, and she will follow-up with my colleagues from the weight management clinic I thank my colleagues for involving me in the care of this patient My final recommendations will be communicated back to the requesting physician by way of shared Medical record or letter to requesting physician via [place] mail. I spent 60 minutes in the visit, with more than 50% of the total enza-io-jltn time of the visit in counseling / coordination of care. This note was created using [employer] dictation software. You may find errors that were missed during proofreading. They are purely unintentional and if there are any concerns regarding this dictation, please do not hesitate to contact the dictating provider for clarification. Candi Sahu MD documented in this encounter [facility] 02-06-2022 History of Present illness Narrative This note was created using [employer] - [employer]. Subjective Sonia Lara is a 36 year old female here today for follow-up thyroid and anxiety. I reviewed past medical, surgical, social, and family histories today and updated chart. Allergies, chronic medications, and supplements were also reviewed. She is feeling sick today Symptoms started Sunday morning Went to Urgent Care last Sunday - fever 103, body aches, chills, headache Flu and COVID were negative Told she had viral illness Now she has congestion, cough, sore throat Overall feels better since it started but cough is pretty bad still Throat is really sore Left ear pain Tylenol Cold over the counter She saw ENT Dr. James - she is using Flonase Left ear retracted Anxiety - has been elevated with family issue. But overall feeling good without her medication. Thyroid - TSH was 1.1 6 months ago. She continues levothyroxine 50 mcg daily Energy level has been down Hx PCOS Struggling to lose weight Doing weight watchers with her mom PAST MEDICAL HISTORY Diagnosis Date Abnormal Pap smear of cervix Acquired hypothyroidism - check TSH Amenorrhea, unspecified - pt to track periods and we will discuss at next visit Anemia complicating , third trimester 01/28/2019 Binge eating disorder - refer to Dr. 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 Katz, Infertility, female Morbid obesity (HCC) - continue to follow weight watcher's progam, exercise 1 hour per day, goal of 30 pounds in 3 months, then will recheck triglycerides. Obesity PCOS (polycystic ovarian syndrome) depression 01/05/2020 Seasonal allergies PAST SURGICAL HISTORY Procedure Laterality Date BARIATRIC SURGERY HX 12/13/[address] Katz SNGL 04/12/2019 C/S low transverse CAUTERY CERVIX CRYOCAUTERY INITIAL/REPEAT 2006 DELIVERY ONLY 05/17/2021 LTCS D&C SUCTION 06/22/2020 incomplete ab HERNIA REPAIR HX REVISION OF FOOT BONES Left 02/07/2013 Ganglion Cyst/Bone Spur removed, Bone shaved. Left Foot Dr. Pickard SALPINGECTOMY Bilateral 05/17/2021 at second c/s TONSILLECTOMY HX ALLERGIES Codeine MEDICATIONS fluticasone (FLONASE ALLERGY RELIEF) 50 mcg/actuation nasal spray Use 1 [place] in each nostril twice daily. guaiFENesin (MUCINEX) 600 mg 12 hr tablet Take 1 tablet by mouth twice daily for 7 days. omeprazole (PRILOSEC) 20 mg capsule Take 1 capsule by mouth once daily. clotrimazole (LOTRIMIN, CLOTRIM) 1 % cream APPLY TO AFFECTED AREA TWICE A DAY levothyroxine (SYNTHROID) 50 mcg tablet Take 1 tablet by mouth once daily. calcium carbonate (CALCIUM 600 ORAL) Take by mouth. iron,carbonyl (IRON CHEWS ORAL) Take by mouth. albuterol HFA (PROVENTIL HFA, VENTOLIN HFA) 90 mcg/actuation inhaler Inhale 2 Puffs as instructed every 4 hours as needed for Wheezing/Shortness of Breath. Iatjndia-Bd-Uou-Fe-FA tab Take 1 tablet by mouth. FAMILY HISTORY Problem Relation Age of Onset other (Diabetes mellitus) Father other (Thyroid disorder) Father Rheumatologic disease Mother other (Endometriosis) Mother other (fibromyalgia) Mother No Known Problems Brother Colon Cancer Paternal Grandfather No Known Problems Brother Rheumatologic disease Maternal Grandmother Cancer Maternal Grandfather Lung- Mesothelioma Social History Tobacco Use Smoking status: Never Smokeless tobacco: Never Vaping Use Vaping Use: Never used Substance Use Topics Alcohol use: Not Currently Comment: monthy use Drug use: Never Review of Systems Constitutional: Positive for chills, fatigue and fever. Negative for appetite change and unexpected weight change. HENT: Positive for congestion, ear pain and sore throat. Negative for rhinorrhea. Eyes: Negative for pain, discharge, itching and visual disturbance. Respiratory: Positive for cough. Negative for shortness of breath and wheezing. Cardiovascular: Negative for chest pain, palpitations and leg swelling. Gastrointestinal: Negative for abdominal pain, constipation, diarrhea, nausea and vomiting. Musculoskeletal: Negative for arthralgias. Skin: Negative for rash. Neurological: Negative for dizziness, tremors, weakness and headaches. Psychiatric/Behavioral: Negative for dysphoric mood and sleep disturbance. The patient is not nervous/anxious. Objective BP 142/94 Pulse 74 Temp 36.7 C (98 F) Ht 162.6 cm (5' 4) Wt (!) 142.4 kg (314 lb) LMP 08/21/2020 (Approximate) SpO2 97% BMI 53.90 kg/m Physical Exam Constitutional: General: She is not in acute distress. Appearance: She is well-developed. She is ill-appearing. She is not toxic-appearing. HENT: Head: Normocephalic and atraumatic. Right Ear: Hearing, ear canal and external ear normal. No drainage. A middle ear effusion is present. Tympanic membrane is not injected or bulging. Left Ear: Hearing, ear canal and external ear normal. No drainage. A middle ear effusion is present. Tympanic membrane is retracted. Tympanic membrane is not injected or bulging. Nose: Mucosal edema and rhinorrhea present. Mouth/Throat: Lips: [place]. Mouth: Mucous membranes are moist. No oral lesions. Pharynx: Oropharynx is clear. Uvula midline. Posterior oropharyngeal erythema present. No oropharyngeal exudate. Eyes: General: Lids are normal. Right eye: No discharge. Left eye: No discharge. Conjunctiva/sclera: Conjunctivae normal. Pupils: Pupils are equal, round, and reactive to light. Cardiovascular: Rate and Rhythm: Normal rate and regular rhythm. Heart sounds: Normal heart sounds. No murmur heard. Pulmonary: Effort: Pulmonary effort is normal. Breath sounds: Normal breath sounds. No wheezing, rhonchi or rales. Musculoskeletal: Cervical back: Normal range of motion and neck supple. Lymphadenopathy: Head: Right side of head: No tonsillar, preauricular or posterior auricular adenopathy. Left side of head: No tonsillar, preauricular or posterior auricular adenopathy. Cervical: No cervical adenopathy. Upper Body: Right upper body: No supraclavicular adenopathy. Left upper body: No supraclavicular adenopathy. Skin: General: Skin is warm and dry. Findings: No bruising or rash. Neurological: General: No focal deficit present. Mental Status: She is alert and oriented to person, place, and time. Cranial Nerves: No cranial nerve deficit. Psychiatric: Mood and Affect: Mood and affect normal. Speech: Speech normal. Behavior: Behavior normal. Behavior is cooperative. Component Latest Ref Rng & Units 05/16/2021 08/03/2021 Protein, Total 6.3 - 8.0 g/dL 6.1 (L) 7.1 Albumin 3.9 - 4.9 g/dL 3.2 (L) 4.1 Calcium 8.5 - 10.2 mg/dL 9.2 9.9 Bilirubin, Total 0.2 - 1.3 mg/dL 0.2 0.3 Alkaline Phosphatase 34 - 123 U/L 126 (H) 105 AST 13 - 35 U/L 8 (L) 16 Glucose 74 - 99 mg/dL 78 84 BUN 7 - 21 mg/dL 10 10 Creatinine 0.58 - 0.96 mg/dL 0.65 0.83 Sodium 136 - 144 mmol/L 136 140 Potassium 3.7 - 5.1 mmol/L 4.2 3.9 Chloride 97 - 105 mmol/L 103 103 CO2 22 - 30 mmol/L 21 (L) 25 Anion Gap 9 - 18 mmol/L 12 12 ALT 7 - 38 U/L 6 (L) 19 eGFR- >60 eGFR-All Other Races . >60 eGFR >=60 mL/min/1.73m 94 WBC 3.70 - 11.00 k/uL 8.63 7.18 RBC 3.90 - 5.20 m/uL 4.44 4.73 Hemoglobin 11.5 - 15.5 g/dL 11.6 11.9 Hematocrit 36.0 - 46.0 % 36.2 39.1 MCV 80.0 - 100.0 fL 81.5 82.7 MCH 26.0 - 34.0 pg 26.1 25.2 (L) MCHC 30.5 - 36.0 g/dL 32.0 30.4 (L) RDW-CV 11.5 - 15.0 % 18.2 (H) 15.1 (H) Platelet Count 150 - 400 k/uL 209 263 MPV 9.0 - 12.7 fL 9.6 9.2 Absolute nRBC <0.01 k/uL <0.01 Iron 41 - 186 ug/dL 45 TIBC 232 - 386 ug/dL 356 Transferrin Saturation 15 - 57 % 13 (L) TSH 0.270 - 4.200 mIU/L 1.630 1.180 Ferritin 14.7 - 205.1 ng/mL 50.7 ASSESSMENT/PLAN: 1. KELLEY (generalized anxiety disorder) - ICD9: 300.02, ICD10: F41.1 (primary diagnosis) Stable off medications 2. Insulin resistance - ICD9: 277.7, ICD10: E88.81 Referral to endocrinology for further evaluation and treatment recomendations - CONSULT TO ENDOCRINOLOGY 3. PCOS (polycystic ovarian syndrome) - ICD9: 256.4, ICD10: E28.2 Referral to endocrinology for further evaluation and treatment recomendations - CONSULT TO ENDOCRINOLOGY 4. Hypothyroidism, acquired - ICD9: 244.9, ICD10: E03.9 - Instructed patient on importance of taking on an empty stomach either first thing in the morning or at bedtime. Levothyroxine 50 mcg daily - CONSULT TO ENDOCRINOLOGY - TSH BLD 5. Elevated blood pressure reading without diagnosis of hypertension - ICD9: 796.2, ICD10: R03.0 - Encouraged dietary sodium restriction/DASH diet - Recommended regular aerobic exercise. - Recommend home blood pressure monitoring, to bring results in on next visit - Goal of BP <130/80 FU in 2 weeks - CONSULT TO ENDOCRINOLOGY 6. Acute maxillary sinusitis, recurrence not specified - ICD9: 461.0, ICD10: J01.00 - Will begin treatment with Doxycycline - Supportive care with plenty of fluids, rest, and analgesia prn. Farheen Almendarez APRN.FRUIT HARVESTER documented in this encounter [facility] 01-31-2022 History of Present illness Narrative This note was created using NoteWriter. Subjective Sonia Lara is a 36 year old female. HPI by patient: Sonia Lara is a 36 year old presenting to the office with the complaint of viral symptoms. Started yesterday. Associated symptoms include fevers- 103F, chills, body aches, left ear pain, fatigue, headaches, and congestion. Denies vomiting, diarrhea, and sore throat. Vaccinated for influenza: yes Covid Immunization Dates Postponed - COVID-19 VACCINE (3 - Booster) Postponed until 08/03/2022 08/03/2021 Postponed until 08/03/2022 by Mary Rose MA (Declined at this time) 08/27/2020 Imm Admin: COVID-19 vaccine, age 12+ yr (PFIZER-BIONTECH - PURPLE TOP) 08/06/2020 Imm Admin: COVID-19 vaccine (UNSPECIFIED) 08/06/2020 Imm Admin: COVID-19 original vaccine, age 12+ yr, monovalent (PFIZER-BIONTECH - PURPLE TOP) Flu/RSV contacts: none. Strep contacts: none. Sick contacts: none. Covid + contacts: none. Travel in the last 14 days: none. Smoking history/second hand smoke: none. OTC tylenol. Took prescription medication for back. Finished amoxicillin prescribed by PCP. ALLERGIES Codeine Other: See Comments Comment:Nausea Family History Reviewed Including Cardiac Diseases, Psychiatric Diseases, & Substance Abuse Problem: other (Diabetes mellitus) Relation: Father Age of Onset: (Not Specified) Problem: other (Thyroid disorder) Relation: Father Age of Onset: (Not Specified) Problem: Rheumatologic disease Relation: Mother Age of Onset: (Not Specified) Problem: other (Endometriosis) Relation: Mother Age of Onset: (Not Specified) Problem: other (fibromyalgia) Relation: Mother Age of Onset: (Not Specified) Problem: No Known Problems Relation: Brother Age of Onset: (Not Specified) Problem: Colon Cancer Relation: Paternal Grandfather Age of Onset: (Not Specified) Problem: No Known Problems Relation: Brother Age of Onset: (Not Specified) Problem: Rheumatologic disease Relation: Maternal Grandmother Age of Onset: (Not Specified) Problem: Cancer Relation: Maternal Grandfather Age of Onset: (Not Specified) Comment: Lung- Mesothelioma Social History Tobacco Use Smoking status: Never Smokeless tobacco: Never Vaping Use Vaping Use: Never used Alcohol use: Not Currently Comment: monthy use Drug use: Never Active Ambulatory Problems Acquired hypothyroidism Date Noted: 08/08/2016 Class 3 severe obesity with serious comorbidity and body mass index (BMI) of 50.0 to 59.9 in adult (HCC) Date Noted: 08/08/2016 Elevated C-reactive protein (CRP) Date Noted: 09/29/2016 Hyperglycemia Date Noted: 10/17/2016 Liver mass Date Noted: 10/17/2016 PCOS (polycystic ovarian syndrome) Date Noted: 12/28/2016 Obstructive sleep apnea Date Noted: 01/18/2017 Fatty (change of) liver, not elsewhere classified Date Noted: 11/16/2017 DDD (degenerative disc disease), lumbar Date Noted: 07/22/2018 Paresthesia Date Noted: 07/22/2018 Chronic midline thoracic back pain Date Noted: 07/22/2018 History of chronic back pain Date Noted: 08/15/2018 History of bariatric surgery Date Noted: 08/15/2018 History of hypothyroidism Date Noted: 08/15/2018 Exercise-induced asthma Date Noted: 07/16/2019 Seasonal allergies Date Noted: 07/16/2019 Insulin resistance Date Noted: 05/03/2020 History of depression Date Noted: 05/17/2020 Resolved Ambulatory Problems Obesity Female infertility Date Noted: 08/08/2016 BMI 50.0-59.9, adult (HCC) Date Noted: 10/10/2016 Morbid obesity (HCC) Date Noted: 10/10/2016 Irregular menstrual cycle Date Noted: 10/16/2016 Pain of upper abdomen Date Noted: 12/28/2016 Menorrhagia with regular cycle Date Noted: 12/28/2016 Incisional pain Date Noted: 12/28/2016 Hepatomegaly, not elsewhere classified Date Noted: 11/16/2017 Lumbar back pain Date Noted: 07/22/2018 Supervision of with history of infertility, first trimester Date Noted: 08/15/2018 Family history of congenital heart defect Date Noted: 08/15/2018 Anemia complicating , third trimester Date Noted: 01/28/2019 Size of fetus inconsistent with dates in third trimester Date Noted: 03/10/2019 depression Date Noted: 01/05/2020 with history of section, antepartum Date Noted: 05/17/2020 Obesity during Date Noted: 05/17/2020 Patient requested diagnostic testing Date Noted: 05/17/2020 Prior miscarriage with , antepartum Date Noted: 10/07/2020 Antepartum multigravida of advanced maternal age Date Noted: 10/07/2020 Past Medical History: No date: Abnormal Pap smear of cervix No date: Amenorrhea, unspecified No date: Binge eating disorder No date: Childhood asthma 2007: LES I (cervical intraepithelial neoplasia I) 03/04/2020: COVID-19 No date: fatty liver 7th grade: fracture 12/13/2016: H/O bariatric surgery No date: Infertility, female Review of Systems Constitutional: Positive for chills, fatigue and fever. HENT: Positive for congestion and ear pain (left). Negative for sore throat. Eyes: Negative. Respiratory: Positive for shortness of breath (from fatigue). Cardiovascular: Negative. Gastrointestinal: Positive for nausea. Negative for diarrhea and vomiting. Endocrine: Negative. Genitourinary: Negative. Musculoskeletal: Positive for myalgias. Skin: Negative. Neurological: Positive for headaches. Hematological: Negative. Objective BP 143/88 Pulse 96 Temp 36.5 C (97.7 F) Resp 16 Ht 162.6 cm (5' 4) Wt (!) 140.2 kg (309 lb) LMP 08/21/2020 (Approximate) SpO2 98% BMI 53.04 kg/m Physical Exam Vitals reviewed. Constitutional: General: She is not in acute distress. Appearance: She is ill-appearing. She is not toxic-appearing or diaphoretic. HENT: Head: Normocephalic and atraumatic. Right Ear: Tympanic membrane, ear canal and external ear normal. Left Ear: Tympanic membrane, ear canal and external ear normal. Nose: Nose normal. Right Sinus: No maxillary sinus tenderness or frontal sinus tenderness. Left Sinus: No maxillary sinus tenderness or frontal sinus tenderness. Mouth/Throat: Mouth: Mucous membranes are moist. Pharynx: Oropharynx is clear. No oropharyngeal exudate or posterior oropharyngeal erythema. Cardiovascular: Rate and Rhythm: Normal rate and regular rhythm. Pulmonary: Effort: Pulmonary effort is normal. Breath sounds: Normal breath sounds. Lymphadenopathy: Head: Right side of head: No submandibular or tonsillar adenopathy. Left side of head: No submandibular or tonsillar adenopathy. Cervical: No cervical adenopathy. Psychiatric: Behavior: Behavior is cooperative. Assessment and Plan (R68.89) Flu-like symptoms (primary encounter diagnosis) Plan: COVID WITH FLUA+B, ROUTINE (J06.9) Viral URI Plan: fluticasone (FLONASE ALLERGY RELIEF) 50 mcg/actuation nasal spray, guaiFENesin (MUCINEX) 600 mg 12 hr tablet Education on viral vs bacterial infections. Most viral infections will last 10 days, sometimes 14. It is possible to have back to back viral infections. An antibiotic will not treat a virus. -Covid/flu test for rule out, results in 48 hours, isolation in the interim. Reslut to mychart. Should you be positive and want outpatient covid treatment you can contact your primary care provider. -Drink lots of fluids and get plenty of rest. Gargle with salt water 3 times/day. -Vaporizers, cool mist humidifiers, warm showers, and warm fluids help open respiratory and sinus passages. Clean humidifiers daily. -OTC tylenol as directed on the bottle. -Saline nasal spray as needed. Flonase twice daily can help reduce inflammation through the sinus cavities. -OTC Mucinex or generic version for congestion for those over the age of 12. -Cough/deep breathing education, promote clearing of the airways and good lung expansion. -Make follow up with primary care for monitoring and resolution in symptoms. -Signs that warrant an ER evaluation: Sudden change/worsening in condition, lethargy, signs of dehydration, fever greater than 102 F that is not responding to Tylenol or ibuprofen (Motrin, Advil), drooling, difficulty swallowing, difficulty breathing, shortness of breath, chest pain, evidence of airway compromise (tripod position, neck extension, retractions), seizures, changes in mental status, or other concerns. The patient will pursue further outpatient evaluation with the primary care physician or another Urgent Care/Express Care as outlined in the after visit summary. The patient is agreeable to this plan of care and follow-up instructions have been explained in detail. The patient has received these instructions in written format and have expressed an understanding of the after visit summary. Medical Decision Making: Level: 3 - Low I spent a total of 20 minutes on the date of the service which included preparing to see the patient, [id number] patient care, completing clinical documentation, obtaining and/or reviewing separately obtained history, performing a medically appropriate examination, counseling and educating the patient/family/caregiver, and ordering medications, tests, or procedures. This patient encounter involved the screening or treatment of novel coronavirus infection (COVID-19). documented in this encounter [facility] 01-31-2022 Instructions Kacie Bird APRN.GRISELDA - 01/31/2022 6:20 PM EST (R68.89) Flu-like symptoms (primary encounter diagnosis) Plan: COVID WITH FLUA+B, ROUTINE (J06.9) Viral URI Plan: fluticasone (FLONASE ALLERGY RELIEF) 50 mcg/actuation nasal spray, guaiFENesin (MUCINEX) 600 mg 12 hr tablet Education on viral vs bacterial infections. Most viral infections will last 10 days, sometimes 14. It is possible to have back to back viral infections. An antibiotic will not treat a virus. -Covid/flu test for rule out, results in 48 hours, isolation in the interim. Reslut to mychart. Should you be positive and want outpatient covid treatment you can contact your primary care provider. -Drink lots of fluids and get plenty of rest. Gargle with salt water 3 times/day. -Vaporizers, cool mist humidifiers, warm showers, and warm fluids help open respiratory and sinus passages. Clean humidifiers daily. -OTC tylenol as directed on the bottle. -Saline nasal spray as needed. Flonase twice daily can help reduce inflammation through the sinus cavities. -OTC Mucinex or generic version for congestion for those over the age of 12. -Cough/deep breathing education, promote clearing of the airways and good lung expansion. -Make follow up with primary care for monitoring and resolution in symptoms. -Signs that warrant an ER evaluation: Sudden change/worsening in condition, lethargy, signs of dehydration, fever greater than 102 F that is not responding to Tylenol or ibuprofen (Motrin, Advil), drooling, difficulty swallowing, difficulty breathing, shortness of breath, chest pain, evidence of airway compromise (tripod position, neck extension, retractions), seizures, changes in mental status, or other concerns. documented in this encounter [facility] 11-25-2021 Miscellaneous Notes Called pt left Vm with results Karolyn Aldana MA ----- Message from Farheen Almendarez APRN.FRUIT HARVESTER sent at 11/24/2021 10:34 PM EDT ----- Please notify patient results are normal. Thank you. Farheen Almendarez APRN.FRUIT HARVESTER documented in this encounter [facility] 11-22-2021 History of Present illness Narrative This note was created using [employer]. Subjective Sonia aLra is a 36 year old female here today for left ear pain. I reviewed past medical, surgical, social, and family histories today and updated chart. Allergies, chronic medications, and supplements were also reviewed. Had COVID 3 weeks ago - felt like a bad sinus infection Low grade fever Sunday night - woke up drenched in sweat Left ear pain radiates down into neck/jaw No swollen glands No sore throat Maybe some post nasal drip Has allergies really bad She has been having problems with her left ear, multiple ear infections over the last 2 years Tailbone pain - had it during her first and it resolved gradually. Came back after she had her second baby and its hurting really bad. PAST MEDICAL HISTORY Diagnosis Date Abnormal Pap smear of cervix Acquired hypothyroidism - check TSH Amenorrhea, unspecified - pt to track periods and we will discuss at next visit Anemia complicating , third trimester 01/28/2019 Binge eating disorder - refer to Dr. 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 Katz, Infertility, female Morbid obesity (HCC) - continue to follow weight watcher's progam, exercise 1 hour per day, goal of 30 pounds in 3 months, then will recheck triglycerides. Obesity PCOS (polycystic ovarian syndrome) depression 01/05/2020 Seasonal allergies PAST SURGICAL HISTORY Procedure Laterality Date BARIATRIC SURGERY HX 12/13/[address] Katz SNGL 04/12/2019 C/S low transverse CAUTERY CERVIX CRYOCAUTERY INITIAL/REPEAT 2006 DELIVERY ONLY 05/17/2021 LTCS D&C SUCTION 06/22/2020 incomplete ab HERNIA REPAIR HX REVISION OF FOOT BONES Left 02/07/2013 Ganglion Cyst/Bone Spur removed, Bone shaved. Left Foot Dr. Pickard SALPINGECTOMY Bilateral 05/17/2021 at second c/s TONSILLECTOMY HX ALLERGIES Codeine MEDICATIONS busPIRone (BUSPAR) 5 mg tablet Take 1 tablet by mouth three times daily. omeprazole (PRILOSEC) 20 mg capsule Take 1 capsule by mouth once daily. clotrimazole (LOTRIMIN, CLOTRIM) 1 % cream APPLY TO AFFECTED AREA TWICE A DAY levothyroxine (SYNTHROID) 50 mcg tablet Take 1 tablet by mouth once daily. calcium carbonate (CALCIUM 600 ORAL) Take by mouth. iron,carbonyl (IRON CHEWS ORAL) Take by mouth. albuterol HFA (PROVENTIL HFA, VENTOLIN HFA) 90 mcg/actuation inhaler Inhale 2 Puffs as instructed every 4 hours as needed for Wheezing/Shortness of Breath. Piokzgna-Rn-Srj-Fe-FA ( VITAMIN) tab Take 1 tablet by mouth. FAMILY HISTORY Problem Relation Age of Onset other (Diabetes mellitus) Father other (Thyroid disorder) Father Rheumatologic disease Mother other (Endometriosis) Mother other (fibromyalgia) Mother No Known Problems Brother Colon Cancer Paternal Grandfather No Known Problems Brother Rheumatologic disease Maternal Grandmother Cancer Maternal Grandfather Lung- Mesothelioma Social History Tobacco Use Smoking status: Never Smokeless tobacco: Never Vaping Use Vaping Use: Never used Substance Use Topics Alcohol use: Not Currently Comment: monthy use Drug use: Never Review of Systems Constitutional: Positive for diaphoresis, fatigue and fever. Negative for appetite change, chills and unexpected weight change. HENT: Positive for ear pain and hearing loss (muffled, ears keep popping). Negative for congestion, ear discharge, rhinorrhea and sore throat. Eyes: Negative for pain, discharge, itching and visual disturbance. Respiratory: Negative for cough, shortness of breath and wheezing. Cardiovascular: Negative for chest pain, palpitations and leg swelling. Gastrointestinal: Negative for abdominal pain, constipation, diarrhea, nausea and vomiting. Musculoskeletal: Negative for arthralgias. Skin: Negative for rash. Neurological: Positive for headaches. Negative for dizziness, tremors and weakness. Psychiatric/Behavioral: Negative for dysphoric mood and sleep disturbance. The patient is not nervous/anxious. Objective BP 122/76 (BP Site: Right Arm, BP Position: Sitting, BP Cuff Size: Large Adult) Pulse 102 Temp 36.8 C (98.3 F) (Oral) Resp 18 Ht 162.6 cm (5' 4) Wt (!) 139.3 kg (307 lb) LMP 08/21/2020 (Approximate) SpO2 98% BMI 52.70 kg/m Physical Exam Constitutional: General: She is not in acute distress. Appearance: She is well-developed. She is not toxic-appearing. HENT: Head: Normocephalic and atraumatic. Right Ear: Hearing, tympanic membrane, ear canal and external ear normal. No drainage. Tympanic membrane is not injected or bulging. Left Ear: Hearing, ear canal and external ear normal. No drainage. A middle ear effusion is present. Tympanic membrane is not injected or bulging. Nose: Nose normal. No mucosal edema or rhinorrhea. Mouth/Throat: Lips: [place]. Mouth: Mucous membranes are moist. No oral lesions. Pharynx: Oropharynx is clear. Uvula midline. No oropharyngeal exudate or posterior oropharyngeal erythema. Eyes: General: Lids are normal. Right eye: No discharge. Left eye: No discharge. Conjunctiva/sclera: Conjunctivae normal. Pupils: Pupils are equal, round, and reactive to light. Cardiovascular: Rate and Rhythm: Normal rate and regular rhythm. Heart sounds: Normal heart sounds. No murmur heard. Pulmonary: Effort: Pulmonary effort is normal. Breath sounds: Normal breath sounds. No wheezing, rhonchi or rales. Musculoskeletal: Cervical back: Normal range of motion and neck supple. Lumbar back: Tenderness present. Lymphadenopathy: Head: Right side of head: No tonsillar, preauricular or posterior auricular adenopathy. Left side of head: No tonsillar, preauricular or posterior auricular adenopathy. Cervical: No cervical adenopathy. Upper Body: Right upper body: No supraclavicular adenopathy. Left upper body: No supraclavicular adenopathy. Skin: General: Skin is warm and dry. Findings: No bruising or rash. Neurological: General: No focal deficit present. Mental Status: She is alert and oriented to person, place, and time. Cranial Nerves: No cranial nerve deficit. Psychiatric: Mood and Affect: Mood and affect normal. Speech: Speech normal. Behavior: Behavior normal. Behavior is cooperative. ASSESSMENT/PLAN: 1. Chronic ROYER (middle ear effusion), left - ICD9: 381.3, ICD10: H65.492 (primary diagnosis) Referral placed to ENT Dr. James for further evaluation We have tried flonase, antihistamines - CONSULT TO ENT 2. Hearing loss of left ear, unspecified hearing loss type - ICD9: 389.9, ICD10: H91.92 Referral placed to ENT for further evaluation - CONSULT TO ENT 3. Coccyx pain - ICD9: 724.79, ICD10: M53.3 Check x-ray - XR SACRUM/COCCYX 3V AP/LAT Farheen Almendarez APRN.FRUIT HARVESTER documented in this encounter [facility] 11-02-2021 History of Present illness Narrative This note was created using [employer]game[employer]ter. Subjective Sonia Lara is a 36 year old female here today for acute visit for concerns for possible ear infection. Pt of TEE Almendarez. Reports symptoms started Sunday with body aches, chills. Developed fever Sunday night. Sunday evening started with nasal congestion, drainage, and last night her ears started popping and feeling like has water in them. Bilateral ear pain. Reports had horrible NICK, Sunday and Sunday. She has not taken anything for her symptoms. Denies cough, SOB, CP. She has had her COVID vaccines. Reports she checked on Sunday and was negative for COVID. She has not checked since She reports since she is sick she has cold sores on her mouth and lips. She does have rx for valacyclovir which her PCP gave her refills. ALLERGIES Allergen Reactions Codeine Other: See Comments Nausea Current Outpatient Medications Medication Sig Dispense Refill busPIRone (BUSPAR) 5 mg tablet Take 1 tablet by mouth three times daily. 90 tablet 2 omeprazole (PRILOSEC) 20 mg capsule Take 1 capsule by mouth once daily. 30 capsule 2 clotrimazole (LOTRIMIN, CLOTRIM) 1 % cream APPLY TO AFFECTED AREA TWICE A DAY 28.4 g 2 levothyroxine (SYNTHROID) 50 mcg tablet Take 1 tablet by mouth once daily. 90 tablet 1 calcium carbonate (CALCIUM 600 ORAL) Take by mouth. iron,carbonyl (IRON CHEWS ORAL) Take by mouth. albuterol HFA (PROVENTIL HFA, VENTOLIN HFA) 90 mcg/actuation inhaler Inhale 2 Puffs as instructed every 4 hours as needed for Wheezing/Shortness of Breath. 1 Inhaler 5 Fztvfifz-Sa-Abd-Fe-FA ( VITAMIN) tab Take 1 tablet by mouth. No current facility-administered medications for this visit. ACTIVE PROBLEM LIST Acquired Hypothyroidism Class 3 Severe Obesity With Serious Comorbidity and Body Mass Index (Bmi) of 50.0 to 59.9 in Adult (Hcc) Elevated C-Reactive Protein (Crp) Hyperglycemia Liver Mass Pcos (Polycystic Ovarian Syndrome) Obstructive Sleep Apnea Fatty (Change Of) Liver, Not Elsewhere Classified Ddd (Degenerative Disc Disease), Lumbar Paresthesia Chronic Midline Thoracic Back Pain History of Chronic Back Pain History of Bariatric Surgery History of Hypothyroidism Exercise-Induced Asthma Seasonal Allergies Insulin Resistance History of Depression PAST MEDICAL HISTORY Diagnosis Date Abnormal Pap smear of cervix Acquired hypothyroidism - check TSH Amenorrhea, unspecified - pt to track periods and we will discuss at next visit Anemia complicating , third trimester 01/28/2019 Binge eating disorder - refer to Dr. 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 Katz, Infertility, female Morbid obesity (HCC) - continue to follow weight watcher's progam, exercise 1 hour per day, goal of 30 pounds in 3 months, then will recheck triglycerides. Obesity PCOS (polycystic ovarian syndrome) depression 01/05/2020 Seasonal allergies PAST SURGICAL HISTORY Procedure Laterality Date BARIATRIC SURGERY HX 12/13/[address] Katz SNGL 04/12/2019 C/S low transverse CAUTERY CERVIX CRYOCAUTERY INITIAL/REPEAT 2006 DELIVERY ONLY 05/17/2021 LTCS D&C SUCTION 06/22/2020 incomplete ab HERNIA REPAIR HX REVISION OF FOOT BONES Left 02/07/2013 Ganglion Cyst/Bone Spur removed, Bone shaved. Left Foot Dr. Pickard SALPINGECTOMY Bilateral 05/17/2021 at second c/s TONSILLECTOMY HX Social History Tobacco Use Smoking status: Never Smokeless tobacco: Never Vaping Use Vaping Use: Never used Substance Use Topics Alcohol use: Not Currently Comment: monthy use Drug use: Never Family History Problem Relation Age of Onset other (Diabetes mellitus) Father other (Thyroid disorder) Father Rheumatologic disease Mother other (Endometriosis) Mother other (fibromyalgia) Mother No Known Problems Brother Colon Cancer Paternal Grandfather No Known Problems Brother Rheumatologic disease Maternal Grandmother Cancer Maternal Grandfather Lung- Mesothelioma Review of Systems Constitutional: Negative for chills, diaphoresis, fatigue and fever. HENT: Positive for congestion, ear pain, postnasal drip, rhinorrhea and sinus pressure. Negative for ear discharge, facial swelling, sinus pain, sneezing, sore throat and trouble swallowing. See HPI Respiratory: Negative for cough, chest tightness, shortness of breath and wheezing. Cardiovascular: Negative for chest pain, palpitations and leg swelling. Musculoskeletal: Positive for arthralgias. See HPI Skin: Negative for rash. Neurological: Positive for headaches. Negative for dizziness. Objective BP 122/76 (BP Site: Right Arm, BP Position: Sitting, BP Cuff Size: Thigh) Pulse 86 Temp 36.8 C (98.2 F) (Oral) Resp 18 Ht 162.6 cm (5' 4) Wt (!) 139.7 kg (308 lb) LMP 08/21/2020 (Approximate) SpO2 98% BMI 52.87 kg/m Physical Exam Vitals and nursing note reviewed. Constitutional: Appearance: Normal appearance. HENT: Head: Normocephalic and atraumatic. Right Ear: Tympanic membrane, ear canal and external ear normal. Left Ear: Tympanic membrane and external ear normal. Nose: Rhinorrhea present. No congestion. Mouth/Throat: Mouth: Mucous membranes are moist. Pharynx: Oropharynx is clear. No oropharyngeal exudate or posterior oropharyngeal erythema. Eyes: Conjunctiva/sclera: Conjunctivae normal. Cardiovascular: Rate and Rhythm: Normal rate and regular rhythm. Pulses: Normal pulses. Heart sounds: Normal heart sounds. Pulmonary: Effort: Pulmonary effort is normal. Breath sounds: Normal breath sounds. No wheezing, rhonchi or rales. Skin: General: Skin is warm and dry. Neurological: Mental Status: She is alert and oriented to person, place, and time. Psychiatric: Mood and Affect: Mood normal. Behavior: Behavior normal. Thought Content: Thought content normal. Judgment: Judgment normal. ASSESSMENT/PLAN: 1. Upper respiratory tract infection, unspecified type - ICD9: 465.9, ICD10: J06.9 - Discussed viral etiology and rationale for treatment. Instructed to re test for COVID. Exam unremarkable. No indications for need for antibiotic at this time. - Symptomatic treatment with prn analgesia - Supportive care with fluids and rest - The patient may also use OTC decongestants prn and OTC cough and cold meds as needed. - Follow up in 3-5 days if symptoms persist or sooner if worsening of symptoms Aye Guevara APRN.FRUIT HARVESTER documented in this encounter [facility] 10-04-2021 History of Present illness Narrative This note was created using [employer]. Subjective Sonia Lara is a 35 year old female here today for follow-up knee pain. I reviewed past medical, surgical, social, and family histories today and updated chart. Allergies, chronic medications, and supplements were also reviewed. Right knee pain started about 7 weeks ago. Treated with prednisone, tylenol, oxycodone 5 mg for severe pain. No longer needs oxycodone. Unable to take NSAIDs due to hx gastric bypass Knee still hurting at times but overall better She still has difficulty walking on it at times She thinks she's having issue with gallbladder Gets nauseated after she eats Had severe abdominal pain Sunday and Sunday night- horrible gas pains, couldn't breath, lasted for 6 hours. Vomited and felt better Last oxycodone was Sunday night for the abdominal pain Since she had her baby will randomly throw up after eating Abdominal pain will start after dinner and is generalized then progresses and worsens and localizes to epigastric area Urine is neon yellow She does not take vitamins She drinks a lot of water Yesterday ate very bland foods PAST MEDICAL HISTORY Diagnosis Date Abnormal Pap smear of cervix Acquired hypothyroidism - check TSH Amenorrhea, unspecified - pt to track periods and we will discuss at next visit Anemia complicating , third trimester 01/28/2019 Binge eating disorder - refer to Dr. 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 Katz, Infertility, female Morbid obesity (HCC) - continue to follow weight watcher's progam, exercise 1 hour per day, goal of 30 pounds in 3 months, then will recheck triglycerides. Obesity PCOS (polycystic ovarian syndrome) depression 01/05/2020 Seasonal allergies PAST SURGICAL HISTORY Procedure Laterality Date BARIATRIC SURGERY HX 12/13/[address] Katz SNGL 04/12/2019 C/S low transverse CAUTERY CERVIX CRYOCAUTERY INITIAL/REPEAT 2006 DELIVERY ONLY 05/17/2021 LTCS D&C SUCTION 06/22/2020 incomplete ab HERNIA REPAIR HX REVISION OF FOOT BONES Left 02/07/2013 Ganglion Cyst/Bone Spur removed, Bone shaved. Left Foot Dr. Pickard SALPINGECTOMY Bilateral 05/17/2021 at second c/s TONSILLECTOMY HX ALLERGIES Codeine MEDICATIONS clotrimazole (LOTRIMIN, CLOTRIM) 1 % cream APPLY TO AFFECTED AREA TWICE A DAY sertraline (ZOLOFT) 100 mg tablet Take 1.5 tablets by mouth once daily. levothyroxine (SYNTHROID) 50 mcg tablet Take 1 tablet by mouth once daily. calcium carbonate (CALCIUM 600 ORAL) Take by mouth. iron,carbonyl (IRON CHEWS ORAL) Take by mouth. albuterol HFA (PROVENTIL HFA, VENTOLIN HFA) 90 mcg/actuation inhaler Inhale 2 Puffs as instructed every 4 hours as needed for Wheezing/Shortness of Breath. Hzbbsvzl-Ih-Nxg-Fe-FA ( VITAMIN) tab Take 1 tablet by mouth. FAMILY HISTORY Problem Relation Age of Onset other (Diabetes mellitus) Father other (Thyroid disorder) Father Rheumatologic disease Mother other (Endometriosis) Mother other (fibromyalgia) Mother No Known Problems Brother Colon Cancer Paternal Grandfather No Known Problems Brother Rheumatologic disease Maternal Grandmother Cancer Maternal Grandfather Lung- Mesothelioma Social History Tobacco Use Smoking status: Never Smoker Smokeless tobacco: Never Used Vaping Use Vaping Use: Never used Substance Use Topics Alcohol use: Not Currently Comment: monthy use Drug use: Never Review of Systems Constitutional: Negative for appetite change, chills, fatigue, fever and unexpected weight change. HENT: Negative for congestion, ear pain, rhinorrhea and sore throat. Eyes: Negative for pain, discharge, itching and visual disturbance. Respiratory: Negative for cough, shortness of breath and wheezing. Cardiovascular: Negative for chest pain, palpitations and leg swelling. Gastrointestinal: Positive for abdominal pain, nausea and vomiting. Negative for constipation and diarrhea. Genitourinary: Negative for difficulty urinating. Musculoskeletal: Positive for arthralgias. Skin: Negative for rash. Neurological: Negative for dizziness, tremors, weakness and headaches. Psychiatric/Behavioral: Negative for dysphoric mood and sleep disturbance. The patient is nervous/anxious. She stopped zoloft not too long ago, just wasn't feeling right on it. She does still have bouts of anxiety Objective BP 128/90 Pulse 81 Temp 36.7 C (98 F) Ht 162.6 cm (5' 4) Wt (!) 139.7 kg (308 lb) LMP 08/21/2020 (Approximate) SpO2 96% BMI 52.87 kg/m Physical Exam Constitutional: Appearance: Normal appearance. She is not toxic-appearing. HENT: Mouth/Throat: Lips: [place]. Mouth: Mucous membranes are moist. Pharynx: Oropharynx is clear. Eyes: General: No scleral icterus. Cardiovascular: Rate and Rhythm: Normal rate and regular rhythm. Heart sounds: Normal heart sounds. No murmur heard. Pulmonary: Effort: Pulmonary effort is normal. Breath sounds: Normal breath sounds. No wheezing or rales. Abdominal: General: Bowel sounds are normal. There is no distension or abdominal bruit. Palpations: Abdomen is soft. There is no hepatomegaly, splenomegaly or mass. Tenderness: There is abdominal tenderness in the right upper quadrant and epigastric area. There is guarding. Positive signs include Gipson's sign. Musculoskeletal: Right lower leg: No edema. Left lower leg: No edema. Skin: General: Skin is warm and dry. Findings: No bruising or rash. Neurological: General: No focal deficit present. Mental Status: She is alert and oriented to person, place, and time. Sensory: Sensation is intact. Motor: Motor function is intact. Coordination: Coordination is intact. Psychiatric: Attention and Perception: Attention and perception normal. Mood and Affect: Mood and affect normal. Speech: Speech normal. Behavior: Behavior normal. Behavior is cooperative. Thought Content: Thought content normal. ASSESSMENT/PLAN: 1. Epigastric pain - ICD9: 789.06, ICD10: R10.13 (primary diagnosis) Positive gipson's sign on exam Check labs US RUQ - COMP METABOLIC PANEL - LIPASE BLD - CBC - US ABD RT UPPER QUADRANT 2. Nausea - ICD9: 787.02, ICD10: R11.0 - COMP METABOLIC PANEL - LIPASE BLD - CBC - US ABD RT UPPER QUADRANT 3. Acute pain of right knee - ICD9: 719.46, ICD10: M25.561 Associated with small effusion Referral placed to ortho for further evaluation and treatment options - CONSULT TO ORTHOPAEDICS 4. Effusion of right knee - ICD9: 719.06, ICD10: M25.461 - CONSULT TO ORTHOPAEDICS 5. Anxiety - ICD9: 300.00, ICD10: F41.9 Start Buspar 5 mg TID FU in about 6 weeks - BUSPIRONE 5 MG TABLET Farheen Almendarez APRN.FRUIT HARVESTER documented in this encounter [facility] 09-21-2021 Miscellaneous Notes Pharmacy requesting refills: Last office visit 08/31/2021. Last refill 03/31/2020.nov 10/04/2021 Pending Prescriptions Disp Refills CLOTRIMAZOLE 1 % TOPICAL CREAM 28.4 g 2 Sig: APPLY TO AFFECTED AREA TWICE A DAY LEANDRO: Yes Please review and advise. Mary Rose MA documented in this encounter [facility] 09-05-2021 Miscellaneous Notes Patient is informed. Kiera Headley MA ----- Message from Farheen Almendarez APRN.FRUIT HARVESTER sent at 09/05/2021 11:24 AM EDT ----- Small joint effusion (fluid collection) minimal arthritis with bony overgrowth. Farheen Almendarez APRN.FRUIT HARVESTER documented in this encounter [facility] 08-31-2021 History of Present illness Narrative This note was created using [employer]. Subjective Sonia Lara is a 35 year old female here today for knee pain. I reviewed past medical, surgical, social, and family histories today and updated chart. Allergies, chronic medications, and supplements were also reviewed. Right knee pain - medial, lateral and behind the knee Started about 2 weeks ago, woke up with the pain. Thinks she may have tripped on a toy in her house, does not recall actual injury Rates it 2-3/10 Gets worse as the day goes on, worse with stretching the knee out, going up stairs Not terrible when she's in bed but when she stands up from the bed it hurts, gets stiff It cracks a lot and it arch[place]ta Feels warm No swelling Feels like it may give out at times No locking Just feels tight in there Tightness in the calf as well Icing it using tylenol Yesterday took oxycodone she had left over it was so bad PAST MEDICAL HISTORY Diagnosis Date Abnormal Pap smear of cervix Acquired hypothyroidism - check TSH Amenorrhea, unspecified - pt to track periods and we will discuss at next visit Anemia complicating , third trimester 01/28/2019 Binge eating disorder - refer to Dr. 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 Katz, Infertility, female Morbid obesity (HCC) - continue to follow weight watcher's progam, exercise 1 hour per day, goal of 30 pounds in 3 months, then will recheck triglycerides. Obesity PCOS (polycystic ovarian syndrome) depression 01/05/2020 Seasonal allergies PAST SURGICAL HISTORY Procedure Laterality Date BARIATRIC SURGERY HX 12/13/[address] Katz SNGL 04/12/2019 C/S low transverse CAUTERY CERVIX CRYOCAUTERY INITIAL/REPEAT 2007 DELIVERY ONLY 05/17/2021 LTCS D&C SUCTION 06/22/2020 incomplete ab HERNIA REPAIR HX REVISION OF FOOT BONES Left 02/07/2013 Ganglion Cyst/Bone Spur removed, Bone shaved. Left Foot Dr. Pickard SALPINGECTOMY Bilateral 05/17/2021 at second c/s TONSILLECTOMY HX ALLERGIES Codeine MEDICATIONS sertraline (ZOLOFT) 100 mg tablet Take 1.5 tablets by mouth once daily. levothyroxine (SYNTHROID) 50 mcg tablet Take 1 tablet by mouth once daily. calcium carbonate (CALCIUM 600 ORAL) Take by mouth. iron,carbonyl (IRON CHEWS ORAL) Take by mouth. albuterol HFA (PROVENTIL HFA, VENTOLIN HFA) 90 mcg/actuation inhaler Inhale 2 Puffs as instructed every 4 hours as needed for Wheezing/Shortness of Breath. Adhprlst-Fo-Hkx-Fe-FA ( VITAMIN) tab Take 1 tablet by mouth. cyanocobalamin, vitamin B-12, (VITAMIN B12 ORAL) Take by mouth. FAMILY HISTORY Problem Relation Age of Onset other (Diabetes mellitus) Father other (Thyroid disorder) Father Rheumatologic disease Mother other (Endometriosis) Mother other (fibromyalgia) Mother No Known Problems Brother Colon Cancer Paternal Grandfather No Known Problems Brother Rheumatologic disease Maternal Grandmother Cancer Maternal Grandfather Lung- Mesothelioma Social History Tobacco Use Smoking status: Never Smoker Smokeless tobacco: Never Used Vaping Use Vaping Use: Never used Substance Use Topics Alcohol use: Not Currently Comment: monthy use Drug use: Never Review of Systems Constitutional: Negative for appetite change, chills, fatigue, fever and unexpected weight change. HENT: Negative for congestion, ear pain, rhinorrhea and sore throat. Eyes: Negative for pain, discharge, itching and visual disturbance. Respiratory: Negative for cough, shortness of breath and wheezing. Cardiovascular: Negative for chest pain, palpitations and leg swelling. Gastrointestinal: Negative for abdominal pain, constipation, diarrhea, nausea and vomiting. Musculoskeletal: Positive for arthralgias. Skin: Negative for rash. Neurological: Negative for dizziness, tremors, weakness and headaches. Psychiatric/Behavioral: Negative for dysphoric mood and sleep disturbance. The patient is not nervous/anxious. Objective BP 110/72 Pulse 89 Temp 36.7 C (98 F) Ht 162.6 cm (5' 4) Wt (!) 140.6 kg (310 lb) LMP 08/21/2020 (Approximate) SpO2 99% BMI 53.21 kg/m Physical Exam Cardiovascular: Rate and Rhythm: Normal rate and regular rhythm. Heart sounds: Normal heart sounds. Pulmonary: Effort: Pulmonary effort is normal. Breath sounds: Normal breath sounds. Musculoskeletal: Right knee: No swelling, deformity, effusion or bony tenderness. Decreased range of motion. Tenderness present over the medial joint line and lateral joint line. No patellar tendon tenderness. Normal alignment, normal meniscus and normal patellar mobility. Left knee: No swelling, deformity or effusion. Comments: Anterior and posterior drawer tests normal. Varus test abnormal. Valgus test abnormal. Skin: General: Skin is warm and dry. Neurological: Mental Status: She is alert and oriented to person, place, and time. Psychiatric: Attention and Perception: Attention and perception normal. Mood and Affect: Mood and affect normal. Judgment: Judgment normal. ASSESSMENT/PLAN: 1. Acute pain of right knee - ICD9: 719.46, ICD10: M25.561 X-ray to evaluate NSAIDs contraindicated due to hx gastric bypass Tylenol 1000 mg TID prn Prednisone 20 mg daily x 5 days Oxycodone 5 mg every 8 hours as needed for severe pain Discussed medication action, dosing, side effects, risks, and benefits. Patient verbalizes understanding. [facility] report from previous 12 months checked and validated. All prescriptions have been APPROPRIATELY filled. No suspicious activity was identified. Farheen Almendarez APRN.FRUIT HARVESTER - XR KNEE GENERAL 4V AP BOTH/PA BOTH/LAT/MERC RIGHT - PREDNISONE 20 MG TABLET - OXYCODONE 5 MG TABLET FU 2-4 weeks Farheen Almendarez APRN.CNP documented in this encounter [facility] 08-04-2021 Miscellaneous Notes Patient informed of results. Rajni Bernard MA ----- Message from Farheen Almendarez APRN.GRISELDA sent at 08/04/2021 11:29 AM EDT ----- Normal labs. Farheen Almendarez APRN.CNP documented in this encounter [facility] 08-03-2021 History of Present illness Narrative This note was created using [employer]. Subjective Sonia Lara is a 35 year old female here today for sick visit. I reviewed past medical, surgical, social, and family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 AMOXICILLIN 875 MG-POTASSIUM CLAVULANATE 125 MG TABLET Aye Guevara APRN.[employer]STER documented in this encounter [facility] 10-07-2020 History of Past i llness Narrative Problem Noted Date Resolved Date Prior miscarriage with , antepartum 05/23/2021 Overview: 10/07/2020atient had a miscarriage and D&C in May. She has been followed by quantitative hCGs. We did talk about grief after a loss. She does believe she had some depression following the miscarriage. Information on the Forget me not support group forming given to patient. TKRN Antepartum multigravida of advanced maternal age 0710/07/2020 05/23/2021 Overview: 10/07/2020 advanced maternal age discussed. Patient desires nuchal ultrasound and materniti 21 testing. TKRN with history of section, ante 05/17/2020 05/23/2021 Overview: 10/07/2020t had a previous C section. She desires a repeat C sectionby Dr Groves. She states that she was told by Dr. Groves it was probably best for her to have a repeat . I have ordered EMMIs on and for the patient and advised her to watch this prior to her appointment with Dr. Groves .TKRN Obesity during 05/17/2020 022 Patient requested diagnostic testing 05/17/2020 05/23/2021 Overview: 10/07/2020 Patient desires nuchal u ltrasound and maternity 21 testing. Considering genetic carrier screening testing. Lillie Wilde RN Postpartum depression 01/05/2020 05/23/2021 Size of fetus inconsistent with dates in third t rimester 03/10/2019 04/25/2019 Overview: 02/24/19-Size greater than dates, Growth US at 32w2d shows SHANAE 17.3, 64th percentile, cephalic. Chrissie Olivo APRN.CNM Anemia complicating , third trimester 1 03/30/2018 04/25/2019 Supervision of wit h history of infertility, first trimester 08/15/2018 04/25/2019 Overview: 08/15/2018Patient and have been trying to conceive for the past 3 years. She has seen Dr Gordon in the past. No reproductive assistance this -able to conceive on own. TKRN Family history of congenital heart defect 201805/23/2021 Overview: 08/15/2018 FOB's 3rd cousin born with hole in heart-corrective surgery was done. TKRN Lumbar back pain 07/22/2018 01/06/2019 Hepatomegaly, not elsewhere classified 8 01/06/2019 Pain of upper abdomen 12/28/2016 05/20/2018 Menorrhagia with regular cycle 12/28/2016 1 Incisional pain 12/28/2016 05/20/2018 Irregular menstrual cycle 10/16/20162018 BMI 50.0-59.9, adult 10/10/2016 05/20/2018 Morbid obesity 10/10/2016 10/17/2016 Female infertility 08/08/2016 01/06/2019 Obesity 08/08/2016 documented as of this encounter (statuses as of 07/04/2021) [facility] History of Past illness Narrative* Problem Noted Date Resolved Date Prior miscarriage with , antepartum 05/23/2021 Overview: 10/07/2020atient had a miscarriage and D&C in May. She has been followed by quantitative hCGs. We did talk about grief after a loss. She does believe she had some depression following the miscarriage. Information on the Forget me not support group forming given to patient. TKRN Antepartum multigravida of advanced maternal age 0710/07/2020 05/23/2021 Overview: 10/07/2020 advanced maternal age discussed. Patient desires nuchal ultrasound and materniti 21 testing. TKRN with history of section, ante 05/17/2020 05/23/2021 Overview: 10/07/2020t had a previous C section. She desires a repeat C sectionby Dr Groves. She states that she was told by Dr. Groves it was probably best for her to have a repeat . I have ordered EMMIs on and for the patient and advised her to watch this prior to her appointment with Dr. Groves .TKRN Obesity during 05/17/2020 022 Patient requested diagnostic testing 05/17/2020 05/23/2021 Overview: 10/07/2020 Patient desires nuchal u ltrasound and maternity 21 testing. Considering genetic carrier screening testing. Lillie Wilde RN Postpartum depression 01/05/2020 05/23/2021 Size of fetus inconsistent with dates in third t rimester 03/10/2019 04/25/2019 Overview: 02/24/19-Size greater than dates, Growth US at 32w2d shows SHANAE 17.3, 64th percentile, cephalic. Chrissie Olivo APRN.CNM Anemia complicating , third trimester 1 03/30/2018 04/25/2019 Supervision of wit h history of infertility, first trimester 08/15/2018 04/25/2019 Overview: 08/15/2018Patient and have been trying to conceive for the past 3 years. She has seen Dr Gordon in the past. No reproductive assistance this -able to conceive on own. TKRN Family history of congenital heart defect 201805/23/2021 Overview: 08/15/2018 FOB's 3rd cousin born with hole in heart-corrective surgery was done. TKRN Lumbar back pain 07/22/2018 01/06/2019 Hepatomegaly, not elsewhere classified 8 01/06/2019 Pain of upper abdomen 12/28/2016 05/20/2018 Menorrhagia with regular cycle 12/28/2016 1 Incisional pain 12/28/2016 05/20/2018 Irregular menstrual cycle 10/16/20162018 BMI 50.0-59.9, adult 10/10/2016 05/20/2018 Morbid obesity 10/10/2016 10/17/2016 Female infertility 08/08/2016 01/06/2019 Obesity 08/08/2016 documented as of this encounter (statuses as of 08/04/2021) [facility] History of Past illness Narrative* Problem Noted Date Resolved Date Prior miscarriage with , antepartum 05/23/2021 Overview: 10/07/2020atient had a miscarriage and D&C in May. She has been followed by quantitative hCGs. We did talk about grief after a loss. She does believe she had some depression following the miscarriage. Information on the Forget me not support group forming given to patient. TKRN Antepartum multigravida of advanced maternal age 0710/07/2020 05/23/2021 Overview: 10/07/2020 advanced maternal age discussed. Patient desires nuchal ultrasound and materniti 21 testing. TKRN with history of section, ante 05/17/2020 05/23/2021 Overview: 10/07/2020t had a previous C section. She desires a repeat C sectionby Dr Groves. She states that she was told by Dr. Groves it was probably best for her to have a repeat . I have ordered EMMIs on and for the patient and advised her to watch this prior to her appointment with Dr. Groves .TKRN Obesity during 05/17/2020 Patient requested diagnostic testing 05/17/2020 05/23/2021 Overview: 10/07/2020 Patient desires nuchal u ltrasound and maternity 21 testing. Considering genetic carrier screening testing. Lillie Wilde RN Postpartum depression 01/05/2020 05/23/2021 Size of fetus inconsistent with dates in third t rimester 03/10/2019 04/25/2019 Overview: 02/24/19-Size greater than dates, Growth US at 32w2d shows SHANAE 17.3, 64th percentile, cephalic. Chrissie Olivo APRN.CNM Anemia complicating , third trimester 1 03/30/2018 04/25/2019 Supervision of wit h history of infertility, first trimester 08/15/2018 04/25/2019 Overview: 08/15/2018Patient and have been trying to conceive for the past 3 years. She has seen Dr Gordon in the past. No reproductive assistance this -able to conceive on own. TKRN Family history of congenital heart defect 201805/23/2021 Overview: 08/15/2018 FOB's 3rd cousin born with hole in heart-corrective surgery was done. TKRN Lumbar back pain 07/22/2018 01/06/2019 Hepatomegaly, not elsewhere classified 8 01/06/2019 Pain of upper abdomen 12/28/2016 05/20/2018 Menorrhagia with regular cycle 12/28/2016 1 Incisional pain 12/28/2016 05/20/2018 Irregular menstrual cycle 10/16/20162018 BMI 50.0-59.9, adult 10/10/2016 05/20/2018 Morbid obesity 10/10/2016 10/17/2016 Female infertility 08/08/2016 01/06/2019 Obesity 08/08/2016 documented as of this encounter (statuses as of 08/14/2021) [facility] History of Past illness Narrative* Problem Noted Date Resolved Date Prior miscarriage with , antepartum 05/23/2021 Overview: 10/07/2020atient had a miscarriage and D&C in May. She has been followed by quantitative hCGs. We did talk about grief after a loss. She does believe she had some depression following the miscarriage. Information on the Forget me not support group forming given to patient. TKRN Antepartum multigravida of advanced maternal age 0710/07/2020 05/23/2021 Overview: 10/07/2020 advanced maternal age discussed. Patient desires nuchal ultrasound and materniti 21 testing. TKRN with history of section, ante 05/17/2020 05/23/2021 Overview: 10/07/2020t had a previous C section. She desires a repeat C sectionby Dr Groves. She states that she was told by Dr. Groves it was probably best for her to have a repeat . I have ordered EMMIs on and for the patient and advised her to watch this prior to her appointment with Dr. Groves .TKRN Obesity during 05/17/2020 022 Patient requested diagnostic testing 05/17/2020 05/23/2021 Overview: 10/07/2020 Patient desires nuchal u ltrasound and maternity 21 testing. Considering genetic carrier screening testing. Lillie Wilde RN Postpartum depression 01/05/2020 05/23/2021 Size of fetus inconsistent with dates in third t rimester 03/10/2019 04/25/2019 Overview: 02/24/19-Size greater than dates, Growth US at 32w2d shows SHANAE 17.3, 64th percentile, cephalic. Chrissie Olivo APRN.CNM Anemia complicating , third trimester 1 03/30/2018 04/25/2019 Supervision of wit h history of infertility, first trimester 08/15/2018 04/25/2019 Overview: 08/15/2018Patient and have been trying to conceive for the past 3 years. She has seen Dr Gordon in the past. No reproductive assistance this -able to conceive on own. TKRN Family history of congenital heart defect 201805/23/2021 Overview: 08/15/2018 FOB's 3rd cousin born with hole in heart-corrective surgery was done. TKRN Lumbar back pain 07/22/2018 01/06/2019 Hepatomegaly, not elsewhere classified 8 01/06/2019 Pain of upper abdomen 12/28/2016 05/20/2018 Menorrhagia with regular cycle 12/28/2016 1 Incisional pain 12/28/2016 05/20/2018 Irregular menstrual cycle 10/16/20162018 BMI 50.0-59.9, adult 10/10/2016 05/20/2018 Morbid obesity 10/10/2016 10/17/2016 Female infertility 08/08/2016 01/06/2019 Obesity 08/08/2016 documented as of this encounter (statuses as of 09/01/2021) [facility] History of Past illness Narrative* Problem Noted Date Resolved Date Prior miscarriage with , antepartum 05/23/2021 Overview: 1Patient had a miscarriage and D&C in May. She has been followed by quantitative hCGs. We did talk about grief after a loss. She does believe she had some depression following the miscarriage. Information on the Forget me not support group forming given to patient. TKRN Antepartum multigravida of advanced maternal age 0710/07/2020 05/23/2021 Overview: 10/07/2020 advanced maternal age discussed. Patient desires nuchal ultrasound and materniti 21 testing. TKRN with history of section, ante 05/17/2020 05/23/2021 Overview: 1Pt had a previous C section. She desires a repeat C sectionby Dr Groves. She states that she was told by Dr. Groves it was probably best for her to have a repeat . I have ordered EMMIs on and for the patient and advised her to watch this prior to her appointment with Dr. Groves .TKRN Obesity during 05/17/2020 022 Patient requested diagnostic testing 05/17/2020 05/23/2021 Overview: 10/07/2020 Patient desires nuchal u ltrasound and maternity 21 testing. Considering genetic carrier screening testing. Lillie Wilde RN Postpartum depression 01/05/2020 05/23/2021 Size of fetus inconsistent with dates in third t rimester 03/10/2019 04/25/2019 Overview: 02/24/19-Size greater than dates, Growth US at 32w2d shows SHANAE 17.3, 64th percentile, cephalic. Chrissie Olivo APRN.CNM Anemia complicating , third trimester 1 03/30/2018 04/25/2019 Supervision of wit h history of infertility, first trimester 08/15/2018 04/25/2019 Overview: 08/15/2018Patient and have been trying to conceive for the past 3 years. She has seen Dr Gordon in the past. No reproductive assistance this -able to conceive on own. TKRN Family history of congenital heart defect 201805/23/2021 Overview: 08/15/2018 FOB's 3rd cousin born with hole in heart-corrective surgery was done. TKRN Lumbar back pain 07/22/2018 01/06/2019 Hepatomegaly, not elsewhere classified 8 01/06/2019 Pain of upper abdomen 12/28/2016 05/20/2018 Menorrhagia with regular cycle 12/28/2016 1 Incisional pain 12/28/2016 05/20/2018 Irregular menstrual cycle 10/16/20162018 BMI 50.0-59.9, adult 10/10/2016 05/20/2018 Morbid obesity 10/10/2016 10/17/2016 Female infertility 08/08/2016 01/06/2019 Obesity 08/08/2016 documented as of this encounter (statuses as of 09/05/2021) [facility]07-15-2021 History of Past illness Narrative* Problem Noted Date Resolved Date Prior miscarriage with , antepartum 05/23/2021 Overview: 10/07/2020atient had a miscarriage and D&C in May. She has been followed by quantitative hCGs. We did talk about grief after a loss. She does believe she had some depression following the miscarriage. Information on the Forget me not support group forming given to patient. TKRN Antepartum multigravida of advanced maternal age 0710/07/2020 05/23/2021 Overview: 10/07/2020 advanced maternal age discussed. Patient desires nuchal ultrasound and materniti 21 testing. TKRN with history of section, ante 05/17/2020 05/23/2021 Overview: 10/07/2020t had a previous C section. She desires a repeat C sectionby Dr Groves. She states that she was told by Dr. Groves it was probably best for her to have a repeat . I have ordered EMMIs on and for the patient and advised her to watch this prior to her appointment with Dr. Groves .TKRN Obesity during 05/17/2020 022 Patient requested diagnostic testing 05/17/2020 05/23/2021 Overview: 10/07/2020 Patient desires nuchal u ltrasound and maternity 21 testing. Considering genetic carrier screening testing. Lillie Wilde RN Postpartum depression 01/05/2020 05/23/2021 Size of fetus inconsistent with dates in third t rimester 03/10/2019 04/25/2019 Overview: 02/24/19-Size greater than dates, Growth US at 32w2d shows SHANAE 17.3, 64th percentile, cephalic. Chrissie Olivo APRN.CNM Anemia complicating , third trimester 1 03/30/2018 04/25/2019 Supervision of wit h history of infertility, first trimester 08/15/2018 04/25/2019 Overview: 08/15/2018Patient and have been trying to conceive for the past 3 years. She has seen Dr Gordon in the past. No reproductive assistance this -able to conceive on own. TKRN Family history of congenital heart defect 201805/23/2021 Overview: 08/15/2018 FOB's 3rd cousin born with hole in heart-corrective surgery was done. TKRN Lumbar back pain 07/22/2018 01/06/2019 Hepatomegaly, not elsewhere classified 8 01/06/2019 Pain of upper abdomen 12/28/2016 05/20/2018 Menorrhagia with regular cycle 12/28/2016 1 Incisional pain 12/28/2016 05/20/2018 Irregular menstrual cycle 10/16/20162018 BMI 50.0-59.9, adult 10/10/2016 05/20/2018 Morbid obesity 10/10/2016 10/17/2016 Female infertility 08/08/2016 01/06/2019 Obesity 08/08/2016 documented as of this encounter (statuses as of 09/11/2021) [facility]07-15-2021 History of Past illness Narrative* Problem Noted Date Resolved Date Prior miscarriage with , antepartum 05/23/2021 Overview: 1Patient had a miscarriage and D&C in May. She has been followed by quantitative hCGs. We did talk about grief after a loss. She does believe she had some depression following the miscarriage. Information on the Forget me not support group forming given to patient. TKRN Antepartum multigravida of advanced maternal age 0710/07/2020 05/23/2021 Overview: 10/07/2020 advanced maternal age discussed. Patient desires nuchal ultrasound and materniti 21 testing. TKRN with history of section, ante 05/17/2020 05/23/2021 Overview: 10/07/2020t had a previous C section. She desires a repeat C sectionby Dr Groves. She states that she was told by Dr. Groves it was probably best for her to have a repeat . I have ordered EMMIs on and for the patient and advised her to watch this prior to her appointment with Dr. Groves .TKRN Obesity during 05/17/2020 022 Patient requested diagnostic testing 05/17/2020 05/23/2021 Overview: 10/07/2020 Patient desires nuchal u ltrasound and maternity 21 testing. Considering genetic carrier screening testing. Lillie Wilde RN Postpartum depression 01/05/2020 05/23/2021 Size of fetus inconsistent with dates in third t rimester 03/10/2019 04/25/2019 Overview: 02/24/19-Size greater than dates, Growth US at 32w2d shows SHANAE 17.3, 64th percentile, cephalic. Chrissie Olivo APRN.CNM Anemia complicating , third trimester 1 03/30/2018 04/25/2019 Supervision of wit h history of infertility, first trimester 08/15/2018 04/25/2019 Overview: 08/15/2018Patient and have been trying to conceive for the past 3 years. She has seen Dr Gordon in the past. No reproductive assistance this -able to conceive on own. TKRN Family history of congenital heart defect 201805/23/2021 Overview: 08/15/2018 FOB's 3rd cousin born with hole in heart-corrective surgery was done. TKRN Lumbar back pain 07/22/2018 01/06/2019 Hepatomegaly, not elsewhere classified 8 01/06/2019 Pain of upper abdomen 12/28/2016 05/20/2018 Menorrhagia with regular cycle 12/28/2016 1 Incisional pain 12/28/2016 05/20/2018 Irregular menstrual cycle 10/16/20162018 BMI 50.0-59.9, adult 10/10/2016 05/20/2018 Morbid obesity 10/10/2016 10/17/2016 Female infertility 08/08/2016 01/06/2019 Obesity 08/08/2016 documented as of this encounter (statuses as of 09/22/2021) [facility]-2021 History of Past illness Narrative* Problem Noted Date Resolved Date Prior miscarriage with , antepartum 05/23/2021 Overview: 10/07/2020atient had a miscarriage and D&C in May. She has been followed by quantitative hCGs. We did talk about grief after a loss. She does believe she had some depression following the miscarriage. Information on the Forget me not support group forming given to patient. TKRN Antepartum multigravida of advanced maternal age 0710/07/2020 05/23/2021 Overview: 10/07/2020 advanced maternal age discussed. Patient desires nuchal ultrasound and materniti 21 testing. TKRN with history of section, ante 05/17/2020 05/23/2021 Overview: 10/07/2020t had a previous C section. She desires a repeat C sectionby Dr Groves. She states that she was told by Dr. Groves it was probably best for her to have a repeat . I have ordered EMMIs on and for the patient and advised her to watch this prior to her appointment with Dr. Groves .TKRN Obesity during 05/17/2020 022 Patient requested diagnostic testing 05/17/2020 05/23/2021 Overview: 10/07/2020 Patient desires nuchal u ltrasound and maternity 21 testing. Considering genetic carrier screening testing. Lillie Wilde RN Postpartum depression 01/05/2020 05/23/2021 Size of fetus inconsistent with dates in third t rimester 03/10/2019 04/25/2019 Overview: 02/24/19-Size greater than dates, Growth US at 32w2d shows SHANAE 17.3, 64th percentile, cephalic. Chrissie Olivo APRN.CNM Anemia complicating , third trimester 1 03/30/2018 04/25/2019 Supervision of wit h history of infertility, first trimester 08/15/2018 04/25/2019 Overview: 08/15/2018Patient and have been trying to conceive for the past 3 years. She has seen Dr Gordon in the past. No reproductive assistance this -able to conceive on own. TKRN Family history of congenital heart defect 201805/23/2021 Overview: 08/15/2018 FOB's 3rd cousin born with hole in heart-corrective surgery was done. TKRN Lumbar back pain 07/22/2018 01/06/2019 Hepatomegaly, not elsewhere classified 8 01/06/2019 Pain of upper abdomen 12/28/2016 05/20/2018 Menorrhagia with regular cycle 12/28/2016 1 Incisional pain 12/28/2016 05/20/2018 Irregular menstrual cycle 10/16/20162018 BMI 50.0-59.9, adult 10/10/2016 05/20/2018 Morbid obesity 10/10/2016 10/17/2016 Female infertility 08/08/2016 01/06/2019 Obesity 08/08/2016 documented as of this encounter (statuses as of 10/05/2021) [facility]-2021 History of Past illness Narrative* Problem Noted Date Resolved Date Prior miscarriage with , antepartum 05/23/2021 Overview: 10/07/2020atient had a miscarriage and D&C in May. She has been followed by quantitative hCGs. We did talk about grief after a loss. She does believe she had some depression following the miscarriage. Information on the Forget me not support group forming given to patient. TKRN Antepartum multigravida of advanced maternal age 0710/07/2020 05/23/2021 Overview: 10/07/2020 advanced maternal age discussed. Patient desires nuchal ultrasound and materniti 21 testing. TKRN with history of section, ante 05/17/2020 05/23/2021 Overview: 10/07/2020t had a previous C section. She desires a repeat C sectionby Dr Groves. She states that she was told by Dr. Groves it was probably best for her to have a repeat . I have ordered EMMIs on and for the patient and advised her to watch this prior to her appointment with Dr. Groves .TKRN Obesity during 05/17/2020 022 Patient requested diagnostic testing 05/17/2020 05/23/2021 Overview: 10/07/2020 Patient desires nuchal u ltrasound and maternity 21 testing. Considering genetic carrier screening testing. Lillie Wilde RN Postpartum depression 01/05/2020 05/23/2021 Size of fetus inconsistent with dates in third t rimester 03/10/2019 04/25/2019 Overview: 02/24/19-Size greater than dates, Growth US at 32w2d shows SHANAE 17.3, 64th percentile, cephalic. Chrissie Olivo APRN.CHRISTOPHM Anemia complicating , third trimester 1 03/30/2018 04/25/2019 Supervision of wit h history of infertility, first trimester 08/15/2018 04/25/2019 Overview: 08/15/2018Patient and have been trying to conceive for the past 3 years. She has seen Dr Gordon in the past. No reproductive assistance this -able to conceive on own. TKRN Family history of congenital heart defect 201805/23/2021 Overview: 08/15/2018 FOB's 3rd cousin born with hole in heart-corrective surgery was done. TKRN Lumbar back pain 07/22/2018 01/06/2019 Hepatomegaly, not elsewhere classified 8 01/06/2019 Pain of upper abdomen 12/28/2016 05/20/2018 Menorrhagia with regular cycle 12/28/2016 1 Incisional pain 12/28/2016 05/20/2018 Irregular menstrual cycle 10/16/20162018 BMI 50.0-59.9, adult 10/10/2016 05/20/2018 Morbid obesity 10/10/2016 10/17/2016 Female infertility 08/08/2016 01/06/2019 Obesity 08/08/2016 documented as of this encounter (statuses as of 11/02/2021) [facility]21 History of Past illness Narrative* Problem Noted Date Resolved Date Prior miscarriage with , antepartum 05/23/2021 Overview: 10/07/2020atient had a miscarriage and D&C in May. She has been followed by quantitative hCGs. We did talk about grief after a loss. She does believe she had some depression following the miscarriage. Information on the Forget me not support group forming given to patient. TKRN Antepartum multigravida of advanced maternal age 0710/07/2020 05/23/2021 Overview: 10/07/2020 advanced maternal age discussed. Patient desires nuchal ultrasound and materniti 21 testing. TKRN with history of section, ante 05/17/2020 05/23/2021 Overview: 10/07/2020t had a previous C section. She desires a repeat C sectionby Dr Groevs. She states that she was told by Dr. Groves it was probably best for her to have a repeat . I have ordered EMMIs on and for the patient and advised her to watch this prior to her appointment with Dr. Groves .TKRN Obesity during 05/17/2020 022 Patient requested diagnostic testing 05/17/2020 05/23/2021 Overview: 10/07/2020 Patient desires nuchal u ltrasound and maternity 21 testing. Considering genetic carrier screening testing. Lillie Wilde RN Postpartum depression 01/05/2020 05/23/2021 Size of fetus inconsistent with dates in third t rimester 03/10/2019 04/25/2019 Overview: 02/24/19-Size greater than dates, Growth US at 32w2d shows SHANAE 17.3, 64th percentile, cephalic. Chrissie Olivo APRN.CNM Anemia complicating , third trimester 1 03/30/2018 04/25/2019 Supervision of wit h history of infertility, first trimester 08/15/2018 04/25/2019 Overview: 08/15/2018Patient and have been trying to conceive for the past 3 years. She has seen Dr Gordon in the past. No reproductive assistance this -able to conceive on own. TKRN Family history of congenital heart defect 201805/23/2021 Overview: 08/15/2018 FOB's 3rd cousin born with hole in heart-corrective surgery was done. TKRN Lumbar back pain 07/22/2018 01/06/2019 Hepatomegaly, not elsewhere classified 8 01/06/2019 Pain of upper abdomen 12/28/2016 05/20/2018 Menorrhagia with regular cycle 12/28/2016 1 Incisional pain 12/28/2016 05/20/2018 Irregular menstrual cycle 10/16/20162018 BMI 50.0-59.9, adult 10/10/2016 05/20/2018 Morbid obesity 10/10/2016 10/17/2016 Female infertility 08/08/2016 01/06/2019 Obesity 08/08/2016 documented as of this encounter (statuses as of 11/03/2021) [facility]21 History of Past illness Narrative* Problem Noted Date Resolved Date Prior miscarriage with , antepartum 05/23/2021 Overview: 10/07/2020atient had a miscarriage and D&C in May. She has been followed by quantitative hCGs. We did talk about grief after a loss. She does believe she had some depression following the miscarriage. Information on the Forget me not support group forming given to patient. TKRN Antepartum multigravida of advanced maternal age 0710/07/2020 05/23/2021 Overview: 10/07/2020 advanced maternal age discussed. Patient desires nuchal ultrasound and materniti 21 testing. TKRN with history of section, ante 05/17/2020 05/23/2021 Overview: 10/07/2020t had a previous C section. She desires a repeat C sectionby Dr Groves. She states that she was told by Dr. Groves it was probably best for her to have a repeat . I have ordered EMMIs on and for the patient and advised her to watch this prior to her appointment with Dr. Groves .TKRN Obesity during 05/17/2020 022 Patient requested diagnostic testing 05/17/2020 05/23/2021 Overview: 10/07/2020 Patient desires nuchal u ltrasound and maternity 21 testing. Considering genetic carrier screening testing. Lillie Wilde RN Postpartum depression 01/05/2020 05/23/2021 Size of fetus inconsistent with dates in third t rimester 03/10/2019 04/25/2019 Overview: 02/24/19-Size greater than dates, Growth US at 32w2d shows SHANAE 17.3, 64th percentile, cephalic. Chrissie Olivo APRN.CNM Anemia complicating , third trimester 1 03/30/2018 04/25/2019 Supervision of wit h history of infertility, first trimester 08/15/2018 04/25/2019 Overview: 08/15/2018Patient and have been trying to conceive for the past 3 years. She has seen Dr Gordon in the past. No reproductive assistance this -able to conceive on own. TKRN Family history of congenital heart defect 201805/23/2021 Overview: 08/15/2018 FOB's 3rd cousin born with hole in heart-corrective surgery was done. TKRN Lumbar back pain 07/22/2018 01/06/2019 Hepatomegaly, not elsewhere classified 8 01/06/2019 Pain of upper abdomen 12/28/2016 05/20/2018 Menorrhagia with regular cycle 12/28/2016 1 Incisional pain 12/28/2016 05/20/2018 Irregular menstrual cycle 10/16/20162018 BMI 50.0-59.9, adult 10/10/2016 05/20/2018 Morbid obesity 10/10/2016 10/17/2016 Female infertility 08/08/2016 01/06/2019 Obesity 08/08/2016 documented as of this encounter (statuses as of 11/23/2021) [facility]21 History of Past illness Narrative* Problem Noted Date Resolved Date Prior miscarriage with , antepartum 05/23/2021 Overview: 10/07/2020atient had a miscarriage and D&C in May. She has been followed by quantitative hCGs. We did talk about grief after a loss. She does believe she had some depression following the miscarriage. Information on the Forget me not support group forming given to patient. TKRN Antepartum multigravida of advanced maternal age 0710/07/2020 05/23/2021 Overview: 10/07/2020 advanced maternal age discussed. Patient desires nuchal ultrasound and materniti 21 testing. TKRN with history of section, ante 05/17/2020 05/23/2021 Overview: 1Pt had a previous C section. She desires a repeat C sectionby Dr Groves. She states that she was told by Dr. Groves it was probably best for her to have a repeat . I have ordered EMMIs on and for the patient and advised her to watch this prior to her appointment with Dr. Groves .TKRN Obesity during 05/17/2020 022 Patient requested diagnostic testing 05/17/2020 05/23/2021 Overview: 10/07/2020 Patient desires nuchal u ltrasound and maternity 21 testing. Considering genetic carrier screening testing. Lillie Wilde RN Postpartum depression 01/05/2020 05/23/2021 Size of fetus inconsistent with dates in third t rimester 03/10/2019 04/25/2019 Overview: 02/24/19-Size greater than dates, Growth US at 32w2d shows SHANAE 17.3, 64th percentile, cephalic. Chrissie Olivo APRN.CNM Anemia complicating , third trimester 1 03/30/2018 04/25/2019 Supervision of wit h history of infertility, first trimester 08/15/2018 04/25/2019 Overview: 08/15/2018Patient and have been trying to conceive for the past 3 years. She has seen Dr Gordon in the past. No reproductive assistance this -able to conceive on own. TKRN Family history of congenital heart defect 201805/23/2021 Overview: 08/15/2018 FOB's 3rd cousin born with hole in heart-corrective surgery was done. TKRN Lumbar back pain 07/22/2018 01/06/2019 Hepatomegaly, not elsewhere classified 8 01/06/2019 Pain of upper abdomen 12/28/2016 05/20/2018 Menorrhagia with regular cycle 12/28/2016 1 Incisional pain 12/28/2016 05/20/2018 Irregular menstrual cycle 10/16/20162018 BMI 50.0-59.9, adult 10/10/2016 05/20/2018 Morbid obesity 10/10/2016 10/17/2016 Female infertility 08/08/2016 01/06/2019 Obesity 08/08/2016 documented as of this encounter (statuses as of 11/25/2021) [facility] History of Past illness Narrative* Problem Noted Date Resolved Date Prior miscarriage with , antepartum 05/23/2021 Overview: 10/07/2020atient had a miscarriage and D&C in May. She has been followed by quantitative hCGs. We did talk about grief after a loss. She does believe she had some depression following the miscarriage. Information on the Forget me not support group forming given to patient. TKRN Antepartum multigravida of advanced maternal age 0710/07/2020 05/23/2021 Overview: 10/07/2020 advanced maternal age discussed. Patient desires nuchal ultrasound and materniti 21 testing. TKRN with history of section, ante 05/17/2020 05/23/2021 Overview: 10/07/2020t had a previous C section. She desires a repeat C sectionby Dr Groves. She states that she was told by Dr. Groves it was probably best for her to have a repeat . I have ordered EMMIs on and for the patient and advised her to watch this prior to her appointment with Dr. Groves .TKRN Obesity during 05/17/2020 022 Patient requested diagnostic testing 05/17/2020 05/23/2021 Overview: 10/07/2020 Patient desires nuchal u ltrasound and maternity 21 testing. Considering genetic carrier screening testing. Lillie Wilde RN Postpartum depression 01/05/2020 05/23/2021 Size of fetus inconsistent with dates in third t rimester 03/10/2019 04/25/2019 Overview: 02/24/19-Size greater than dates, Growth US at 32w2d shows SHANAE 17.3, 64th percentile, cephalic. Chrissie Olivo APRN.CNM Anemia complicating , third trimester 1 03/30/2018 04/25/2019 Supervision of wit h history of infertility, first trimester 08/15/2018 04/25/2019 Overview: 08/15/2018Patient and have been trying to conceive for the past 3 years. She has seen Dr Gordon in the past. No reproductive assistance this -able to conceive on own. TKRN Family history of congenital heart defect 201805/23/2021 Overview: 08/15/2018 FOB's 3rd cousin born with hole in heart-corrective surgery was done. TKRN Lumbar back pain 07/22/2018 01/06/2019 Hepatomegaly, not elsewhere classified 8 01/06/2019 Pain of upper abdomen 12/28/2016 05/20/2018 Menorrhagia with regular cycle 12/28/2016 1 Incisional pain 12/28/2016 05/20/2018 Irregular menstrual cycle 10/16/20162018 BMI 50.0-59.9, adult 10/10/2016 05/20/2018 Morbid obesity 10/10/2016 10/17/2016 Female infertility 08/08/2016 01/06/2019 Obesity 08/08/2016 documented as of this encounter (statuses as of 11/25/2021) [facility] History of Past illness Narrative* Problem Noted Date Resolved Date Prior miscarriage with , antepartum 05/23/2021 Overview: 1Patient had a miscarriage and D&C in May. She has been followed by quantitative hCGs. We did talk about grief after a loss. She does believe she had some depression following the miscarriage. Information on the Forget me not support group forming given to patient. TKRN Antepartum multigravida of advanced maternal age 0710/07/2020 05/23/2021 Overview: 10/07/2020 advanced maternal age discussed. Patient desires nuchal ultrasound and materniti 21 testing. TKRN with history of section, ante 05/17/2020 05/23/2021 Overview: 1Pt had a previous C section. She desires a repeat C sectionby Dr Groves. She states that she was told by Dr. Groves it was probably best for her to have a repeat . I have ordered EMMIs on and for the patient and advised her to watch this prior to her appointment with Dr. Groves .TKRN Obesity during 05/17/2020 022 Patient requested diagnostic testing 05/17/2020 05/23/2021 Overview: 10/07/2020 Patient desires nuchal u ltrasound and maternity 21 testing. Considering genetic carrier screening testing. Lillie Wilde RN Postpartum depression 01/05/2020 05/23/2021 Size of fetus inconsistent with dates in third t rimester 03/10/2019 04/25/2019 Overview: 02/24/19-Size greater than dates, Growth US at 32w2d shows SHANAE 17.3, 64th percentile, cephalic. Chrissie Olivo APRN.CNM Anemia complicating , third trimester 1 03/30/2018 04/25/2019 Supervision of wit h history of infertility, first trimester 08/15/2018 04/25/2019 Overview: 08/15/2018Patient and have been trying to conceive for the past 3 years. She has seen Dr Gordon in the past. No reproductive assistance this -able to conceive on own. TKRN Family history of congenital heart defect 201805/23/2021 Overview: 08/15/2018 FOB's 3rd cousin born with hole in heart-corrective surgery was done. TKRN Lumbar back pain 07/22/2018 01/06/2019 Hepatomegaly, not elsewhere classified 8 01/06/2019 Pain of upper abdomen 12/28/2016 05/20/2018 Menorrhagia with regular cycle 12/28/2016 1 Incisional pain 12/28/2016 05/20/2018 Irregular menstrual cycle 10/16/20162018 BMI 50.0-59.9, adult 10/10/2016 05/20/2018 Morbid obesity 10/10/2016 10/17/2016 Female infertility 08/08/2016 01/06/2019 Obesity 08/08/2016 documented as of this encounter (statuses as of 02/01/2022) [facility] History of Past illness Narrative* Problem Noted Date Resolved Date Prior miscarriage with , antepartum 05/23/2021 Overview: 10/07/2020atient had a miscarriage and D&C in May. She has been followed by quantitative hCGs. We did talk about grief after a loss. She does believe she had some depression following the miscarriage. Information on the Forget me not support group forming given to patient. TKRN Antepartum multigravida of advanced maternal age 0710/07/2020 05/23/2021 Overview: 10/07/2020 advanced maternal age discussed. Patient desires nuchal ultrasound and materniti 21 testing. TKRN with history of section, ante 05/17/2020 05/23/2021 Overview: 10/07/2020t had a previous C section. She desires a repeat C sectionby Dr Groves. She states that she was told by Dr. Groves it was probably best for her to have a repeat . I have ordered EMMIs on and for the patient and advised her to watch this prior to her appointment with Dr. Groves .TKRN Obesity during 05/17/2020 022 Patient requested diagnostic testing 05/17/2020 05/23/2021 Overview: 10/07/2020 Patient desires nuchal u ltrasound and maternity 21 testing. Considering genetic carrier screening testing. Lillie Wilde RN Postpartum depression 01/05/2020 05/23/2021 Size of fetus inconsistent with dates in third t rimester 03/10/2019 04/25/2019 Overview: 02/24/19-Size greater than dates, Growth US at 32w2d shows SHANAE 17.3, 64th percentile, cephalic. Chrissie Olivo APRN.CNM Anemia complicating , third trimester 1 03/30/2018 04/25/2019 Supervision of wit h history of infertility, first trimester 08/15/2018 04/25/2019 Overview: 08/15/2018Patient and have been trying to conceive for the past 3 years. She has seen Dr Gordon in the past. No reproductive assistance this -able to conceive on own. TKRN Family history of congenital heart defect 201805/23/2021 Overview: 08/15/2018 FOB's 3rd cousin born with hole in heart-corrective surgery was done. TKRN Lumbar back pain 07/22/2018 01/06/2019 Hepatomegaly, not elsewhere classified 8 01/06/2019 Pain of upper abdomen 12/28/2016 05/20/2018 Menorrhagia with regular cycle 12/28/2016 1 Incisional pain 12/28/2016 05/20/2018 Irregular menstrual cycle 10/16/20162018 BMI 50.0-59.9, adult 10/10/2016 05/20/2018 Morbid obesity 10/10/2016 10/17/2016 Female infertility 08/08/2016 01/06/2019 Obesity 08/08/2016 documented as of this encounter (statuses as of 02/06/2022) [facility]07-15-2021 History of Past illness Narrative* Problem Noted Date Resolved Date Prior miscarriage with , antepartum 05/23/2021 Overview: 10/07/2020atient had a miscarriage and D&C in May. She has been followed by quantitative hCGs. We did talk about grief after a loss. She does believe she had some depression following the miscarriage. Information on the Forget me not support group forming given to patient. TKRN Antepartum multigravida of advanced maternal age 0710/07/2020 05/23/2021 Overview: 10/07/2020 advanced maternal age discussed. Patient desires nuchal ultrasound and materniti 21 testing. TKRN with history of section, ante 05/17/2020 05/23/2021 Overview: 10/07/2020t had a previous C section. She desires a repeat C sectionby Dr Groves. She states that she was told by Dr. Groves it was probably best for her to have a repeat . I have ordered EMMIs on and for the patient and advised her to watch this prior to her appointment with Dr. Groves .TKRN Obesity during 05/17/2020 022 Patient requested diagnostic testing 05/17/2020 05/23/2021 Overview: 10/07/2020 Patient desires nuchal u ltrasound and maternity 21 testing. Considering genetic carrier screening testing. Lillie Wilde RN Postpartum depression 01/05/2020 05/23/2021 Size of fetus inconsistent with dates in third t rimester 03/10/2019 04/25/2019 Overview: 02/24/19-Size greater than dates, Growth US at 32w2d shows SHANAE 17.3, 64th percentile, cephalic. Chrissie Olivo APRN.CNM Anemia complicating , third trimester 1 03/30/2018 04/25/2019 Supervision of wit h history of infertility, first trimester 08/15/2018 04/25/2019 Overview: 08/15/2018Patient and have been trying to conceive for the past 3 years. She has seen Dr Gordon in the past. No reproductive assistance this -able to conceive on own. TKRN Family history of congenital heart defect 201805/23/2021 Overview: 08/15/2018 FOB's 3rd cousin born with hole in heart-corrective surgery was done. TKRN Lumbar back pain 07/22/2018 01/06/2019 Hepatomegaly, not elsewhere classified 8 01/06/2019 Pain of upper abdomen 12/28/2016 05/20/2018 Menorrhagia with regular cycle 12/28/2016 1 Incisional pain 12/28/2016 05/20/2018 Irregular menstrual cycle 10/16/20162018 BMI 50.0-59.9, adult 10/10/2016 05/20/2018 Morbid obesity 10/10/2016 10/17/2016 Female infertility 08/08/2016 01/06/2019 Obesity 08/08/2016 documented as of this encounter (statuses as of 02/07/2022) [facility]07-[facility]-2021 History of Past illness Narrative* Problem Noted Date Resolved Date Prior miscarriage with , antepartum 05/23/2021 Overview: 10/07/2020atient had a miscarriage and D&C in May. She has been followed by quantitative hCGs. We did talk about grief after a loss. She does believe she had some depression following the miscarriage. Information on the Forget me not support group forming given to patient. TKRN Antepartum multigravida of advanced maternal age 0710/07/2020 05/23/2021 Overview: 10/07/2020 advanced maternal age discussed. Patient desires nuchal ultrasound and materniti 21 testing. TKRN with history of section, ante 05/17/2020 05/23/2021 Overview: 10/07/2020t had a previous C section. She desires a repeat C sectionby Dr Groves. She states that she was told by Dr. Groves it was probably best for her to have a repeat . I have ordered EMMIs on and for the patient and advised her to watch this prior to her appointment with Dr. Groves .TKRN Obesity during 05/17/2020 022 Patient requested diagnostic testing 05/17/2020 05/23/2021 Overview: 10/07/2020 Patient desires nuchal u ltrasound and maternity 21 testing. Considering genetic carrier screening testing. Lillie Wilde RN Postpartum depression 01/05/2020 05/23/2021 Size of fetus inconsistent with dates in third t rimester 03/10/2019 04/25/2019 Overview: 02/24/19-Size greater than dates, Growth US at 32w2d shows SHANAE 17.3, 64th percentile, cephalic. Chrissie Olivo APRN.CNM Anemia complicating , third trimester 1 03/30/2018 04/25/2019 Supervision of wit h history of infertility, first trimester 08/15/2018 04/25/2019 Overview: 08/15/2018Patient and have been trying to conceive for the past 3 years. She has seen Dr Gordon in the past. No reproductive assistance this -able to conceive on own. TKRN Family history of congenital heart defect 201805/23/2021 Overview: 08/15/2018 FOB's 3rd cousin born with hole in heart-corrective surgery was done. TKRN Lumbar back pain 07/22/2018 01/06/2019 Hepatomegaly, not elsewhere classified 8 01/06/2019 Pain of upper abdomen 12/28/2016 05/20/2018 Menorrhagia with regular cycle 12/28/2016 1 Incisional pain 12/28/2016 05/20/2018 Irregular menstrual cycle 10/16/20162018 BMI 50.0-59.9, adult 10/10/2016 05/20/2018 Morbid obesity 10/10/2016 10/17/2016 Female infertility 08/08/2016 01/06/2019 Obesity 08/08/2016 documented as of this encounter (statuses as of 02/13/2022) [facility]-2021 History of Past illness Narrative* Problem Noted Date Resolved Date Prior miscarriage with , antepartum 05/23/2021 Overview: 10/07/2020atient had a miscarriage and D&C in May. She has been followed by quantitative hCGs. We did talk about grief after a loss. She does believe she had some depression following the miscarriage. Information on the Forget me not support group forming given to patient. TKRN Antepartum multigravida of advanced maternal age 0710/07/2020 05/23/2021 Overview: 10/07/2020 advanced maternal age discussed. Patient desires nuchal ultrasound and materniti 21 testing. TKRN with history of section, ante 05/17/2020 05/23/2021 Overview: 10/07/2020t had a previous C section. She desires a repeat C sectionby Dr Groves. She states that she was told by Dr. Groves it was probably best for her to have a repeat . I have ordered EMMIs on and for the patient and advised her to watch this prior to her appointment with Dr. Groves .TKRN Obesity during 05/17/2020 022 Patient requested diagnostic testing 05/17/2020 05/23/2021 Overview: 10/07/2020 Patient desires nuchal u ltrasound and maternity 21 testing. Considering genetic carrier screening testing. Lillie Wilde RN Postpartum depression 01/05/2020 05/23/2021 Size of fetus inconsistent with dates in third t rimester 03/10/2019 04/25/2019 Overview: 02/24/19-Size greater than dates, Growth US at 32w2d shows SHANAE 17.3, 64th percentile, cephalic. Chrissie Olivo APRN.CNM Anemia complicating , third trimester 1 03/30/2018 04/25/2019 Supervision of wit h history of infertility, first trimester 08/15/2018 04/25/2019 Overview: 08/15/2018Patient and have been trying to conceive for the past 3 years. She has seen Dr Gordon in the past. No reproductive assistance this -able to conceive on own. TKRN Family history of congenital heart defect 201805/23/2021 Overview: 08/15/2018 FOB's 3rd cousin born with hole in heart-corrective surgery was done. TKRN Lumbar back pain 07/22/2018 01/06/2019 Hepatomegaly, not elsewhere classified 8 01/06/2019 Pain of upper abdomen 12/28/2016 05/20/2018 Menorrhagia with regular cycle 12/28/2016 1 Incisional pain 12/28/2016 05/20/2018 Irregular menstrual cycle 10/16/20162018 BMI 50.0-59.9, adult 10/10/2016 05/20/2018 Morbid obesity 10/10/2016 10/17/2016 Female infertility 08/08/2016 01/06/2019 Obesity 08/08/2016 documented as of this encounter (statuses as of 02/20/2022) [facility]-2021 History of Past illness Narrative* Problem Noted Date Resolved Date Prior miscarriage with , antepartum 05/23/2021 Overview: 10/07/2020atient had a miscarriage and D&C in May. She has been followed by quantitative hCGs. We did talk about grief after a loss. She does believe she had some depression following the miscarriage. Information on the Forget me not support group forming given to patient. TKRN Antepartum multigravida of advanced maternal age 0710/07/2020 05/23/2021 Overview: 10/07/2020 advanced maternal age discussed. Patient desires nuchal ultrasound and materniti 21 testing. TKRN with history of section, ante 05/17/2020 05/23/2021 Overview: 10/07/2020t had a previous C section. She desires a repeat C sectionby Dr Groves. She states that she was told by Dr. Groves it was probably best for her to have a repeat . I have ordered EMMIs on and for the patient and advised her to watch this prior to her appointment with Dr. Groves .TKRN Obesity during 05/17/2020 Patient requested diagnostic testing 05/17/2020 05/23/2021 Overview: 10/07/2020 Patient desires nuchal u ltrasound and maternity 21 testing. Considering genetic carrier screening testing. Lillie Wilde RN Postpartum depression 01/05/2020 05/23/2021 Size of fetus inconsistent with dates in third t rimester 03/10/2019 04/25/2019 Overview: 02/24/19-Size greater than dates, Growth US at 32w2d shows SHANAE 17.3, 64th percentile, cephalic. Chrissie Olivo APRN.CNM Anemia complicating , third trimester 1 03/30/2018 04/25/2019 Supervision of wit h history of infertility, first trimester 08/15/2018 04/25/2019 Overview: 08/15/2018Patient and have been trying to conceive for the past 3 years. She has seen Dr Gordon in the past. No reproductive assistance this -able to conceive on own. TKRN Family history of congenital heart defect 201805/23/2021 Overview: 08/15/2018 FOB's 3rd cousin born with hole in heart-corrective surgery was done. TKRN Lumbar back pain 07/22/2018 01/06/2019 Hepatomegaly, not elsewhere classified 8 01/06/2019 Pain of upper abdomen 12/28/2016 05/20/2018 Menorrhagia with regular cycle 12/28/2016 1 Incisional pain 12/28/2016 05/20/2018 Irregular menstrual cycle 10/16/20162018 BMI 50.0-59.9, adult 10/10/2016 05/20/2018 Morbid obesity 10/10/2016 10/17/2016 Female infertility 08/08/2016 01/06/2019 Obesity 08/08/2016 documented as of this encounter (statuses as of 03/29/2022) [facility]21 History of Past illness Narrative* Problem Noted Date Resolved Date Prior miscarriage with , antepartum 05/23/2021 Overview: 10/07/2020atient had a miscarriage and D&C in May. She has been followed by quantitative hCGs. We did talk about grief after a loss. She does believe she had some depression following the miscarriage. Information on the Forget me not support group forming given to patient. TKRN Antepartum multigravida of advanced maternal age 0710/07/2020 05/23/2021 Overview: 10/07/2020 advanced maternal age discussed. Patient desires nuchal ultrasound and materniti 21 testing. TKRN with history of section, ante 05/17/2020 05/23/2021 Overview: 10/07/2020t had a previous C section. She desires a repeat C sectionby Dr Groves. She states that she was told by Dr. Groves it was probably best for her to have a repeat . I have ordered EMMIs on and for the patient and advised her to watch this prior to her appointment with Dr. Groves .TKRN Obesity during 05/17/2020 022 Patient requested diagnostic testing 05/17/2020 05/23/2021 Overview: 10/07/2020 Patient desires nuchal u ltrasound and maternity 21 testing. Considering genetic carrier screening testing. Lillie Wilde RN Postpartum depression 01/05/2020 05/23/2021 Size of fetus inconsistent with dates in third t rimester 03/10/2019 04/25/2019 Overview: 02/24/19-Size greater than dates, Growth US at 32w2d shows SHANAE 17.3, 64th percentile, cephalic. Chrissie Olivo APRN.CNM Anemia complicating , third trimester 1 03/30/2018 04/25/2019 Supervision of wit h history of infertility, first trimester 08/15/2018 04/25/2019 Overview: 08/15/2018Patient and have been trying to conceive for the past 3 years. She has seen Dr Gordon in the past. No reproductive assistance this -able to conceive on own. TKRN Family history of congenital heart defect 201805/23/2021 Overview: 08/15/2018 FOB's 3rd cousin born with hole in heart-corrective surgery was done. TKRN Lumbar back pain 07/22/2018 01/06/2019 Hepatomegaly, not elsewhere classified 8 01/06/2019 Pain of upper abdomen 12/28/2016 05/20/2018 Menorrhagia with regular cycle 12/28/2016 1 Incisional pain 12/28/2016 05/20/2018 Irregular menstrual cycle 10/16/20162018 BMI 50.0-59.9, adult 10/10/2016 05/20/2018 Morbid obesity 10/10/2016 10/17/2016 Female infertility 08/08/2016 01/06/2019 Obesity 08/08/2016 documented as of this encounter (statuses as of 04/03/2022) [facility]21 History of Past illness Narrative* Problem Noted Date Resolved Date Prior miscarriage with , antepartum 05/23/2021 Overview: 1Patient had a miscarriage and D&C in May. She has been followed by quantitative hCGs. We did talk about grief after a loss. She does believe she had some depression following the miscarriage. Information on the Forget me not support group forming given to patient. TKRN Antepartum multigravida of advanced maternal age 0710/07/2020 05/23/2021 Overview: 10/07/2020 advanced maternal age discussed. Patient desires nuchal ultrasound and materniti 21 testing. TKRN with history of section, ante 05/17/2020 05/23/2021 Overview: 10/07/2020t had a previous C section. She desires a repeat C sectionby Dr Groves. She states that she was told by Dr. Groves it was probably best for her to have a repeat . I have ordered EMMIs on and for the patient and advised her to watch this prior to her appointment with Dr. Groves .TKRN Obesity during 05/17/2020 022 Patient requested diagnostic testing 05/17/2020 05/23/2021 Overview: 10/07/2020 Patient desires nuchal u ltrasound and maternity 21 testing. Considering genetic carrier screening testing. Lillie Wilde RN Postpartum depression 01/05/2020 05/23/2021 Size of fetus inconsistent with dates in third t rimester 03/10/2019 04/25/2019 Overview: 02/24/19-Size greater than dates, Growth US at 32w2d shows SHANAE 17.3, 64th percentile, cephalic. Chrissie Olivo APRN.CNM Anemia complicating , third trimester 1 03/30/2018 04/25/2019 Supervision of wit h history of infertility, first trimester 08/15/2018 04/25/2019 Overview: 08/15/2018Patient and have been trying to conceive for the past 3 years. She has seen Dr Gordon in the past. No reproductive assistance this -able to conceive on own. TKRN Family history of congenital heart defect 201805/23/2021 Overview: 08/15/2018 FOB's 3rd cousin born with hole in heart-corrective surgery was done. TKRN Lumbar back pain 07/22/2018 01/06/2019 Hepatomegaly, not elsewhere classified 8 01/06/2019 Pain of upper abdomen 12/28/2016 05/20/2018 Menorrhagia with regular cycle 12/28/2016 1 Incisional pain 12/28/2016 05/20/2018 Irregular menstrual cycle 10/16/20162018 BMI 50.0-59.9, adult 10/10/2016 05/20/2018 Morbid obesity 10/10/2016 10/17/2016 Female infertility 08/08/2016 01/06/2019 Obesity 08/08/2016 documented as of this encounter (statuses as of 04/05/2022) [facility]21 History of Past illness Narrative* Problem Noted Date Resolved Date Prior miscarriage with , antepartum 05/23/2021 Overview: 10/07/2020atient had a miscarriage and D&C in May. She has been followed by quantitative hCGs. We did talk about grief after a loss. She does believe she had some depression following the miscarriage. Information on the Forget me not support group forming given to patient. TKRN Antepartum multigravida of advanced maternal age 0710/07/2020 05/23/2021 Overview: 10/07/2020 advanced maternal age discussed. Patient desires nuchal ultrasound and materniti 21 testing. TKRN with history of section, ante 05/17/2020 05/23/2021 Overview: 10/07/2020t had a previous C section. She desires a repeat C sectionby Dr Groves. She states that she was told by Dr. Groves it was probably best for her to have a repeat . I have ordered EMMIs on and for the patient and advised her to watch this prior to her appointment with Dr. Groves .TKRN Obesity during 05/17/2020 022 Patient requested diagnostic testing 05/17/2020 05/23/2021 Overview: 10/07/2020 Patient desires nuchal u ltrasound and maternity 21 testing. Considering genetic carrier screening testing. Lillie Wilde RN Postpartum depression 01/05/2020 05/23/2021 Size of fetus inconsistent with dates in third t rimester 03/10/2019 04/25/2019 Overview: 02/24/19-Size greater than dates, Growth US at 32w2d shows SHANAE 17.3, 64th percentile, cephalic. Chrissie Olivo APRN.CNM Anemia complicating , third trimester 1 03/30/2018 04/25/2019 Supervision of wit h history of infertility, first trimester 08/15/2018 04/25/2019 Overview: 08/15/2018Patient and have been trying to conceive for the past 3 years. She has seen Dr Gordon in the past. No reproductive assistance this -able to conceive on own. TKRN Family history of congenital heart defect 201805/23/2021 Overview: 08/15/2018 FOB's 3rd cousin born with hole in heart-corrective surgery was done. TKRN Lumbar back pain 07/22/2018 01/06/2019 Hepatomegaly, not elsewhere classified 8 01/06/2019 Pain of upper abdomen 12/28/2016 05/20/2018 Menorrhagia with regular cycle 12/28/2016 1 Incisional pain 12/28/2016 05/20/2018 Irregular menstrual cycle 10/16/20162018 BMI 50.0-59.9, adult 10/10/2016 05/20/2018 Morbid obesity 10/10/2016 10/17/2016 Female infertility 08/08/2016 01/06/2019 Obesity 08/08/2016 documented as of this encounter (statuses as of 04/10/2022) [facility] History of Past illness Narrative* Problem Noted Date Resolved Date Prior miscarriage with , antepartum 05/23/2021 Overview: 1Patient had a miscarriage and D&C in May. She has been followed by quantitative hCGs. We did talk about grief after a loss. She does believe she had some depression following the miscarriage. Information on the Forget me not support group forming given to patient. TKRN Antepartum multigravida of advanced maternal age 0710/07/2020 05/23/2021 Overview: 10/07/2020 advanced maternal age discussed. Patient desires nuchal ultrasound and materniti 21 testing. TKRN with history of section, ante 05/17/2020 05/23/2021 Overview: 10/07/2020t had a previous C section. She desires a repeat C sectionby Dr Groves. She states that she was told by Dr. Groves it was probably best for her to have a repeat . I have ordered EMMIs on and for the patient and advised her to watch this prior to her appointment with Dr. Groves .TKRN Obesity during 05/17/2020 022 Patient requested diagnostic testing 05/17/2020 05/23/2021 Overview: 10/07/2020 Patient desires nuchal u ltrasound and maternity 21 testing. Considering genetic carrier screening testing. Lillie Wilde RN Postpartum depression 01/05/2020 05/23/2021 Size of fetus inconsistent with dates in third t rimester 03/10/2019 04/25/2019 Overview: 02/24/19-Size greater than dates, Growth US at 32w2d shows SHANAE 17.3, 64th percentile, cephalic. Chrissie Olivo APRN.CNM Anemia complicating , third trimester 1 03/30/2018 04/25/2019 Supervision of wit h history of infertility, first trimester 08/15/2018 04/25/2019 Overview: 08/15/2018Patient and have been trying to conceive for the past 3 years. She has seen Dr Gordon in the past. No reproductive assistance this -able to conceive on own. TKRN Family history of congenital heart defect 201805/23/2021 Overview: 08/15/2018 FOB's 3rd cousin born with hole in heart-corrective surgery was done. TKRN Lumbar back pain 07/22/2018 01/06/2019 Hepatomegaly, not elsewhere classified 8 01/06/2019 Pain of upper abdomen 12/28/2016 05/20/2018 Menorrhagia with regular cycle 12/28/2016 1 Incisional pain 12/28/2016 05/20/2018 Irregular menstrual cycle 10/16/20162018 BMI 50.0-59.9, adult 10/10/2016 05/20/2018 Morbid obesity 10/10/2016 10/17/2016 Female infertility 08/08/2016 01/06/2019 Obesity 08/08/2016 documented as of this encounter (statuses as of 04/14/2022) [facility] History of Past illness Narrative* Problem Noted Date Resolved Date Prior miscarriage with , antepartum 05/23/2021 Overview: 10/07/2020atient had a miscarriage and D&C in May. She has been followed by quantitative hCGs. We did talk about grief after a loss. She does believe she had some depression following the miscarriage. Information on the Forget me not support group forming given to patient. TKRN Antepartum multigravida of advanced maternal age 0710/07/2020 05/23/2021 Overview: 10/07/2020 advanced maternal age discussed. Patient desires nuchal ultrasound and materniti 21 testing. TKRN with history of section, ante 05/17/2020 05/23/2021 Overview: 10/07/2020t had a previous C section. She desires a repeat C sectionby Dr Groves. She states that she was told by Dr. Groves it was probably best for her to have a repeat . I have ordered EMMIs on and for the patient and advised her to watch this prior to her appointment with Dr. Groves .TKRN Obesity during 05/17/2020 022 Patient requested diagnostic testing 05/17/2020 05/23/2021 Overview: 10/07/2020 Patient desires nuchal u ltrasound and maternity 21 testing. Considering genetic carrier screening testing. Lillie Wilde RN Postpartum depression 01/05/2020 05/23/2021 Size of fetus inconsistent with dates in third t rimester 03/10/2019 04/25/2019 Overview: 02/24/19-Size greater than dates, Growth US at 32w2d shows SHANAE 17.3, 64th percentile, cephalic. Chrissie Olivo APRN.CNM Anemia complicating , third trimester 1 03/30/2018 04/25/2019 Supervision of wit h history of infertility, first trimester 08/15/2018 04/25/2019 Overview: 08/15/2018Patient and have been trying to conceive for the past 3 years. She has seen Dr Gordon in the past. No reproductive assistance this -able to conceive on own. TKRN Family history of congenital heart defect 201805/23/2021 Overview: 08/15/2018 FOB's 3rd cousin born with hole in heart-corrective surgery was done. TKRN Lumbar back pain 07/22/2018 01/06/2019 Hepatomegaly, not elsewhere classified 8 01/06/2019 Pain of upper abdomen 12/28/2016 05/20/2018 Menorrhagia with regular cycle 12/28/2016 1 Incisional pain 12/28/2016 05/20/2018 Irregular menstrual cycle 10/16/20162018 BMI 50.0-59.9, adult 10/10/2016 05/20/2018 Morbid obesity 10/10/2016 10/17/2016 Female infertility 08/08/2016 01/06/2019 Obesity 08/08/2016 documented as of this encounter (statuses as of 04/19/2022) [facility] History of Past illness Narrative* Problem Noted Date Resolved Date Prior miscarriage with , antepartum 05/23/2021 Overview: 10/07/2020atient had a miscarriage and D&C in May. She has been followed by quantitative hCGs. We did talk about grief after a loss. She does believe she had some depression following the miscarriage. Information on the Forget me not support group forming given to patient. TKRN Antepartum multigravida of advanced maternal age 0710/07/2020 05/23/2021 Overview: 10/07/2020 advanced maternal age discussed. Patient desires nuchal ultrasound and materniti 21 testing. TKRN with history of section, ante 05/17/2020 05/23/2021 Overview: 10/07/2020t had a previous C section. She desires a repeat C sectionby Dr Groves. She states that she was told by Dr. Groves it was probably best for her to have a repeat . I have ordered EMMIs on and for the patient and advised her to watch this prior to her appointment with Dr. Groves .TKRN Obesity during 05/17/2020 022 Patient requested diagnostic testing 05/17/2020 05/23/2021 Overview: 10/07/2020 Patient desires nuchal u ltrasound and maternity 21 testing. Considering genetic carrier screening testing. Lillie Wilde RN Postpartum depression 01/05/2020 05/23/2021 Size of fetus inconsistent with dates in third t rimester 03/10/2019 04/25/2019 Overview: 02/24/19-Size greater than dates, Growth US at 32w2d shows SHANAE 17.3, 64th percentile, cephalic. Chrissie Olivo APRN.CNM Anemia complicating , third trimester 1 03/30/2018 04/25/2019 Supervision of wit h history of infertility, first trimester 08/15/2018 04/25/2019 Overview: 08/15/2018Patient and have been trying to conceive for the past 3 years. She has seen Dr Gordon in the past. No reproductive assistance this -able to conceive on own. TKRN Family history of congenital heart defect 201805/23/2021 Overview: 08/15/2018 FOB's 3rd cousin born with hole in heart-corrective surgery was done. TKRN Lumbar back pain 07/22/2018 01/06/2019 Hepatomegaly, not elsewhere classified 8 01/06/2019 Pain of upper abdomen 12/28/2016 05/20/2018 Menorrhagia with regular cycle 12/28/2016 1 Incisional pain 12/28/2016 05/20/2018 Irregular menstrual cycle 10/16/20162018 BMI 50.0-59.9, adult 10/10/2016 05/20/2018 Morbid obesity 10/10/2016 10/17/2016 Female infertility 08/08/2016 01/06/2019 Obesity 08/08/2016 documented as of this encounter (statuses as of 04/19/2022) [facility]07-15-2021 History of Past illness Narrative* Problem Noted Date Resolved Date Prior miscarriage with , antepartum 05/23/2021 Overview: 10/07/2020atient had a miscarriage and D&C in May. She has been followed by quantitative hCGs. We did talk about grief after a loss. She does believe she had some depression following the miscarriage. Information on the Forget me not support group forming given to patient. TKRN Antepartum multigravida of advanced maternal age 0710/07/2020 05/23/2021 Overview: 10/07/2020 advanced maternal age discussed. Patient desires nuchal ultrasound and materniti 21 testing. TKRN with history of section, ante 05/17/2020 05/23/2021 Overview: 10/07/2020t had a previous C section. She desires a repeat C sectionby Dr Groves. She states that she was told by Dr. Groves it was probably best for her to have a repeat . I have ordered EMMIs on and for the patient and advised her to watch this prior to her appointment with Dr. Groves .TKRN Obesity during 05/17/2020 022 Patient requested diagnostic testing 05/17/2020 05/23/2021 Overview: 10/07/2020 Patient desires nuchal u ltrasound and maternity 21 testing. Considering genetic carrier screening testing. Lillie Wilde RN Postpartum depression 01/05/2020 05/23/2021 Size of fetus inconsistent with dates in third t rimester 03/10/2019 04/25/2019 Overview: 02/24/19-Size greater than dates, Growth US at 32w2d shows SHANAE 17.3, 64th percentile, cephalic. Chrissie Olivo APRN.CNM Anemia complicating , third trimester 1 03/30/2018 04/25/2019 Supervision of wit h history of infertility, first trimester 08/15/2018 04/25/2019 Overview: 08/15/2018Patient and have been trying to conceive for the past 3 years. She has seen Dr Gordon in the past. No reproductive assistance this -able to conceive on own. TKRN Family history of congenital heart defect 201805/23/2021 Overview: 08/15/2018 FOB's 3rd cousin born with hole in heart-corrective surgery was done. TKRN Lumbar back pain 07/22/2018 01/06/2019 Hepatomegaly, not elsewhere classified 8 01/06/2019 Pain of upper abdomen 12/28/2016 05/20/2018 Menorrhagia with regular cycle 12/28/2016 1 Incisional pain 12/28/2016 05/20/2018 Irregular menstrual cycle 10/16/20162018 BMI 50.0-59.9, adult 10/10/2016 05/20/2018 Morbid obesity 10/10/2016 10/17/2016 Female infertility 08/08/2016 01/06/2019 Obesity 08/08/2016 documented as of this encounter (statuses as of 04/25/2022) [facility]07-15-2021 History of Past illness Narrative* Problem Noted Date Resolved Date Prior miscarriage with , antepartum 05/23/2021 Overview: 10/07/2020atient had a miscarriage and D&C in May. She has been followed by quantitative hCGs. We did talk about grief after a loss. She does believe she had some depression following the miscarriage. Information on the Forget me not support group forming given to patient. TKRN Antepartum multigravida of advanced maternal age 0710/07/2020 05/23/2021 Overview: 10/07/2020 advanced maternal age discussed. Patient desires nuchal ultrasound and materniti 21 testing. TKRN with history of section, ante 05/17/2020 05/23/2021 Overview: 10/07/2020t had a previous C section. She desires a repeat C sectionby Dr Groves. She states that she was told by Dr. Groves it was probably best for her to have a repeat . I have ordered EMMIs on and for the patient and advised her to watch this prior to her appointment with Dr. Groves .TKRN Obesity during 05/17/2020 022 Patient requested diagnostic testing 05/17/2020 05/23/2021 Overview: 10/07/2020 Patient desires nuchal u ltrasound and maternity 21 testing. Considering genetic carrier screening testing. Lillie Wilde RN Postpartum depression 01/05/2020 05/23/2021 Size of fetus inconsistent with dates in third t rimester 03/10/2019 04/25/2019 Overview: 02/24/19-Size greater than dates, Growth US at 32w2d shows SHANAE 17.3, 64th percentile, cephalic. Chrissie Olivo APRN.CNM Anemia complicating , third trimester 1 03/30/2018 04/25/2019 Supervision of wit h history of infertility, first trimester 08/15/2018 04/25/2019 Overview: 08/15/2018Patient and have been trying to conceive for the past 3 years. She has seen Dr Gordon in the past. No reproductive assistance this -able to conceive on own. TKRN Family history of congenital heart defect 201805/23/2021 Overview: 08/15/2018 FOB's 3rd cousin born with hole in heart-corrective surgery was done. TKRN Lumbar back pain 07/22/2018 01/06/2019 Hepatomegaly, not elsewhere classified 8 01/06/2019 Pain of upper abdomen 12/28/2016 05/20/2018 Menorrhagia with regular cycle 12/28/2016 1 Incisional pain 12/28/2016 05/20/2018 Irregular menstrual cycle 10/16/20162018 BMI 50.0-59.9, adult 10/10/2016 05/20/2018 Morbid obesity 10/10/2016 10/17/2016 Female infertility 08/08/2016 01/06/2019 Obesity 08/08/2016 documented as of this encounter (statuses as of 04/26/2022) [facility]-2021 History of Past illness Narrative* Problem Noted Date Resolved Date Prior miscarriage with , antepartum 05/23/2021 Overview: 1Patient had a miscarriage and D&C in May. She has been followed by quantitative hCGs. We did talk about grief after a loss. She does believe she had some depression following the miscarriage. Information on the Forget me not support group forming given to patient. TKRN Antepartum multigravida of advanced maternal age 0710/07/2020 05/23/2021 Overview: 10/07/2020 advanced maternal age discussed. Patient desires nuchal ultrasound and materniti 21 testing. TKRN with history of section, ante 05/17/2020 05/23/2021 Overview: 1Pt had a previous C section. She desires a repeat C sectionby Dr Groves. She states that she was told by Dr. Groves it was probably best for her to have a repeat . I have ordered EMMIs on and for the patient and advised her to watch this prior to her appointment with Dr. Groves .TKRN Obesity during 05/17/2020 022 Patient requested diagnostic testing 05/17/2020 05/23/2021 Overview: 10/07/2020 Patient desires nuchal u ltrasound and maternity 21 testing. Considering genetic carrier screening testing. Lillie Wilde RN Postpartum depression 01/05/2020 05/23/2021 Size of fetus inconsistent with dates in third t rimester 03/10/2019 04/25/2019 Overview: 02/24/19-Size greater than dates, Growth US at 32w2d shows SHANAE 17.3, 64th percentile, cephalic. Chrissie Olivo APRN.CNM Anemia complicating , third trimester 1 03/30/2018 04/25/2019 Supervision of wit h history of infertility, first trimester 08/15/2018 04/25/2019 Overview: 08/15/2018Patient and have been trying to conceive for the past 3 years. She has seen Dr Gordon in the past. No reproductive assistance this -able to conceive on own. TKRN Family history of congenital heart defect 201805/23/2021 Overview: 08/15/2018 FOB's 3rd cousin born with hole in heart-corrective surgery was done. TKRN Lumbar back pain 07/22/2018 01/06/2019 Hepatomegaly, not elsewhere classified 8 01/06/2019 Pain of upper abdomen 12/28/2016 05/20/2018 Menorrhagia with regular cycle 12/28/2016 1 Incisional pain 12/28/2016 05/20/2018 Irregular menstrual cycle 10/16/20162018 BMI 50.0-59.9, adult 10/10/2016 05/20/2018 Morbid obesity 10/10/2016 10/17/2016 Female infertility 08/08/2016 01/06/2019 Obesity 08/08/2016 documented as of this encounter (statuses as of 05/30/2022) [facility]-2021 History of Past illness Narrative* Problem Noted Date Resolved Date Prior miscarriage with , antepartum 05/23/2021 Overview: 10/07/2020atient had a miscarriage and D&C in May. She has been followed by quantitative hCGs. We did talk about grief after a loss. She does believe she had some depression following the miscarriage. Information on the Forget me not support group forming given to patient. TKRN Antepartum multigravida of advanced maternal age 0710/07/2020 05/23/2021 Overview: 10/07/2020 advanced maternal age discussed. Patient desires nuchal ultrasound and materniti 21 testing. TKRN with history of section, ante 05/17/2020 05/23/2021 Overview: 10/07/2020t had a previous C section. She desires a repeat C sectionby Dr Groves. She states that she was told by Dr. Groves it was probably best for her to have a repeat . I have ordered EMMIs on and for the patient and advised her to watch this prior to her appointment with Dr. Groves .TKRN Obesity during 05/17/2020 022 Patient requested diagnostic testing 05/17/2020 05/23/2021 Overview: 10/07/2020 Patient desires nuchal u ltrasound and maternity 21 testing. Considering genetic carrier screening testing. Lillie Wilde RN Postpartum depression 01/05/2020 05/23/2021 Size of fetus inconsistent with dates in third t rimester 03/10/2019 04/25/2019 Overview: 02/24/19-Size greater than dates, Growth US at 32w2d shows SHANAE 17.3, 64th percentile, cephalic. Chrissie Olivo APRN.CNM Anemia complicating , third trimester 1 03/30/2018 04/25/2019 Supervision of wit h history of infertility, first trimester 08/15/2018 04/25/2019 Overview: 08/15/2018Patient and have been trying to conceive for the past 3 years. She has seen Dr Gordon in the past. No reproductive assistance this -able to conceive on own. TKRN Family history of congenital heart defect 201805/23/2021 Overview: 08/15/2018 FOB's 3rd cousin born with hole in heart-corrective surgery was done. TKRN Lumbar back pain 07/22/2018 01/06/2019 Hepatomegaly, not elsewhere classified 8 01/06/2019 Pain of upper abdomen 12/28/2016 05/20/2018 Menorrhagia with regular cycle 12/28/2016 1 Incisional pain 12/28/2016 05/20/2018 Irregular menstrual cycle 10/16/20162018 BMI 50.0-59.9, adult 10/10/2016 05/20/2018 Morbid obesity 10/10/2016 10/17/2016 Female infertility 08/08/2016 01/06/2019 Obesity 08/08/2016 documented as of this encounter (statuses as of 05/30/2022) [facility]21 History of Past illness Narrative* Problem Noted Date Resolved Date Prior miscarriage with , antepartum 05/23/2021 Overview: 10/07/2020atient had a miscarriage and D&C in May. She has been followed by quantitative hCGs. We did talk about grief after a loss. She does believe she had some depression following the miscarriage. Information on the Forget me not support group forming given to patient. TKRN Antepartum multigravida of advanced maternal age 0710/07/2020 05/23/2021 Overview: 10/07/2020 advanced maternal age discussed. Patient desires nuchal ultrasound and materniti 21 testing. TKRN with history of section, ante 05/17/2020 05/23/2021 Overview: 1Pt had a previous C section. She desires a repeat C sectionby Dr Groves. She states that she was told by Dr. Groves it was probably best for her to have a repeat . I have ordered EMMIs on and for the patient and advised her to watch this prior to her appointment with Dr. Groves .TKRN Obesity during 05/17/2020 022 Patient requested diagnostic testing 05/17/2020 05/23/2021 Overview: 10/07/2020 Patient desires nuchal u ltrasound and maternity 21 testing. Considering genetic carrier screening testing. Lillie Wilde RN Postpartum depression 01/05/2020 05/23/2021 Size of fetus inconsistent with dates in third t rimester 03/10/2019 04/25/2019 Overview: 02/24/19-Size greater than dates, Growth US at 32w2d shows SHANAE 17.3, 64th percentile, cephalic. Chrissie Olivo APRN.CNM Anemia complicating , third trimester 1 03/30/2018 04/25/2019 Supervision of wit h history of infertility, first trimester 08/15/2018 04/25/2019 Overview: 08/15/2018Patient and have been trying to conceive for the past 3 years. She has seen Dr Gordon in the past. No reproductive assistance this -able to conceive on own. TKRN Family history of congenital heart defect 201805/23/2021 Overview: 08/15/2018 FOB's 3rd cousin born with hole in heart-corrective surgery was done. TKRN Lumbar back pain 07/22/2018 01/06/2019 Hepatomegaly, not elsewhere classified 8 01/06/2019 Pain of upper abdomen 12/28/2016 05/20/2018 Menorrhagia with regular cycle 12/28/2016 1 Incisional pain 12/28/2016 05/20/2018 Irregular menstrual cycle 10/16/20162018 BMI 50.0-59.9, adult 10/10/2016 05/20/2018 Morbid obesity 10/10/2016 10/17/2016 Female infertility 08/08/2016 01/06/2019 Obesity 08/08/2016 documented as of this encounter (statuses as of 05/31/2022) [facility]21 History of Past illness Narrative* Problem Noted Date Resolved Date Prior miscarriage with , antepartum 05/23/2021 Overview: 10/07/2020atient had a miscarriage and D&C in May. She has been followed by quantitative hCGs. We did talk about grief after a loss. She does believe she had some depression following the miscarriage. Information on the Forget me not support group forming given to patient. TKRN Antepartum multigravida of advanced maternal age 0710/07/2020 05/23/2021 Overview: 10/07/2020 advanced maternal age discussed. Patient desires nuchal ultrasound and materniti 21 testing. TKRN with history of section, ante 05/17/2020 05/23/2021 Overview: 10/07/2020t had a previous C section. She desires a repeat C sectionby Dr Groves. She states that she was told by Dr. Groves it was probably best for her to have a repeat . I have ordered EMMIs on and for the patient and advised her to watch this prior to her appointment with Dr. Groves .TKRN Obesity during 05/17/2020 022 Patient requested diagnostic testing 05/17/2020 05/23/2021 Overview: 10/07/2020 Patient desires nuchal u ltrasound and maternity 21 testing. Considering genetic carrier screening testing. Lillie Wilde RN Postpartum depression 01/05/2020 05/23/2021 Size of fetus inconsistent with dates in third t rimester 03/10/2019 04/25/2019 Overview: 02/24/19-Size greater than dates, Growth US at 32w2d shows SHANAE 17.3, 64th percentile, cephalic. Chrissie Olivo APRN.CNM Anemia complicating , third trimester 1 03/30/2018 04/25/2019 Supervision of wit h history of infertility, first trimester 08/15/2018 04/25/2019 Overview: 08/15/2018Patient and have been trying to conceive for the past 3 years. She has seen Dr Gordon in the past. No reproductive assistance this -able to conceive on own. TKRN Family history of congenital heart defect 201805/23/2021 Overview: 08/15/2018 FOB's 3rd cousin born with hole in heart-corrective surgery was done. TKRN Lumbar back pain 07/22/2018 01/06/2019 Hepatomegaly, not elsewhere classified 8 01/06/2019 Pain of upper abdomen 12/28/2016 05/20/2018 Menorrhagia with regular cycle 12/28/2016 1 Incisional pain 12/28/2016 05/20/2018 Irregular menstrual cycle 10/16/20162018 BMI 50.0-59.9, adult 10/10/2016 05/20/2018 Morbid obesity 10/10/2016 10/17/2016 Female infertility 08/08/2016 01/06/2019 Obesity 08/08/2016 documented as of this encounter (statuses as of 07/03/2022) [facility] History of Past illness Narrative* Problem Noted Date Resolved Date Prior miscarriage with , antepartum 05/23/2021 Overview: 1Patient had a miscarriage and D&C in May. She has been followed by quantitative hCGs. We did talk about grief after a loss. She does believe she had some depression following the miscarriage. Information on the Forget me not support group forming given to patient. TKRN Antepartum multigravida of advanced maternal age 0710/07/2020 05/23/2021 Overview: 10/07/2020 advanced maternal age discussed. Patient desires nuchal ultrasound and materniti 21 testing. TKRN with history of section, ante 05/17/2020 05/23/2021 Overview: 10/07/2020t had a previous C section. She desires a repeat C sectionby Dr Groves. She states that she was told by Dr. Groves it was probably best for her to have a repeat . I have ordered EMMIs on and for the patient and advised her to watch this prior to her appointment with Dr. Groves .TKRN Obesity during 05/17/2020 022 Patient requested diagnostic testing 05/17/2020 05/23/2021 Overview: 10/07/2020 Patient desires nuchal u ltrasound and maternity 21 testing. Considering genetic carrier screening testing. Lillie Wilde RN Postpartum depression 01/05/2020 05/23/2021 Size of fetus inconsistent with dates in third t rimester 03/10/2019 04/25/2019 Overview: 02/24/19-Size greater than dates, Growth US at 32w2d shows SHANAE 17.3, 64th percentile, cephalic. Chrissie Olivo APRN.CNM Anemia complicating , third trimester 1 03/30/2018 04/25/2019 Supervision of wit h history of infertility, first trimester 08/15/2018 04/25/2019 Overview: 08/15/2018Patient and have been trying to conceive for the past 3 years. She has seen Dr Gordon in the past. No reproductive assistance this -able to conceive on own. TKRN Family history of congenital heart defect 201805/23/2021 Overview: 08/15/2018 FOB's 3rd cousin born with hole in heart-corrective surgery was done. TKRN Lumbar back pain 07/22/2018 01/06/2019 Hepatomegaly, not elsewhere classified 8 01/06/2019 Pain of upper abdomen 12/28/2016 05/20/2018 Menorrhagia with regular cycle 12/28/2016 1 Incisional pain 12/28/2016 05/20/2018 Irregular menstrual cycle 10/16/20162018 BMI 50.0-59.9, adult 10/10/2016 05/20/2018 Morbid obesity 10/10/2016 10/17/2016 Female infertility 08/08/2016 01/06/2019 Obesity 08/08/2016 documented as of this encounter (statuses as of 07/11/2022) [facility] History of Past illness Narrative* Problem Noted Date Resolved Date Prior miscarriage with , antepartum 05/23/2021 Overview: 1Patient had a miscarriage and D&C in May. She has been followed by quantitative hCGs. We did talk about grief after a loss. She does believe she had some depression following the miscarriage. Information on the Forget me not support group forming given to patient. TKRN Antepartum multigravida of advanced maternal age 0710/07/2020 05/23/2021 Overview: 10/07/2020 advanced maternal age discussed. Patient desires nuchal ultrasound and materniti 21 testing. TKRN with history of section, ante 05/17/2020 05/23/2021 Overview: 10/07/2020t had a previous C section. She desires a repeat C sectionby Dr Groves. She states that she was told by Dr. Groves it was probably best for her to have a repeat . I have ordered EMMIs on and for the patient and advised her to watch this prior to her appointment with Dr. Groves .TKRN Obesity during 05/17/2020 022 Patient requested diagnostic testing 05/17/2020 05/23/2021 Overview: 10/07/2020 Patient desires nuchal u ltrasound and maternity 21 testing. Considering genetic carrier screening testing. Lillie Wilde RN Postpartum depression 01/05/2020 05/23/2021 Size of fetus inconsistent with dates in third t rimester 03/10/2019 04/25/2019 Overview: 02/24/19-Size greater than dates, Growth US at 32w2d shows SHANAE 17.3, 64th percentile, cephalic. Chrissie Olivo APRN.CNM Anemia complicating , third trimester 1 03/30/2018 04/25/2019 Supervision of wit h history of infertility, first trimester 08/15/2018 04/25/2019 Overview: 08/15/2018Patient and have been trying to conceive for the past 3 years. She has seen Dr Gordon in the past. No reproductive assistance this -able to conceive on own. TKRN Family history of congenital heart defect 201805/23/2021 Overview: 08/15/2018 FOB's 3rd cousin born with hole in heart-corrective surgery was done. TKRN Lumbar back pain 07/22/2018 01/06/2019 Hepatomegaly, not elsewhere classified 8 01/06/2019 Pain of upper abdomen 12/28/2016 05/20/2018 Menorrhagia with regular cycle 12/28/2016 1 Incisional pain 12/28/2016 05/20/2018 Irregular menstrual cycle 10/16/20162018 BMI 50.0-59.9, adult 10/10/2016 05/20/2018 Morbid obesity 10/10/2016 10/17/2016 Female infertility 08/08/2016 01/06/2019 Obesity 08/08/2016 documented as of this encounter (statuses as of 08/29/2022) [facility] History of Past illness Narrative* Problem Noted Date Resolved Date Prior miscarriage with , antepartum 05/23/2021 Overview: 10/07/2020atient had a miscarriage and D&C in May. She has been followed by quantitative hCGs. We did talk about grief after a loss. She does believe she had some depression following the miscarriage. Information on the Forget me not support group forming given to patient. TKRN Antepartum multigravida of advanced maternal age 0710/07/2020 05/23/2021 Overview: 10/07/2020 advanced maternal age discussed. Patient desires nuchal ultrasound and materniti 21 testing. TKRN with history of section, ante 05/17/2020 05/23/2021 Overview: 10/07/2020t had a previous C section. She desires a repeat C sectionby Dr Groves. She states that she was told by Dr. Groves it was probably best for her to have a repeat . I have ordered EMMIs on and for the patient and advised her to watch this prior to her appointment with Dr. Groves .TKRN Obesity during 05/17/2020 022 Patient requested diagnostic testing 05/17/2020 05/23/2021 Overview: 10/07/2020 Patient desires nuchal u ltrasound and maternity 21 testing. Considering genetic carrier screening testing. Lillie Wilde RN Postpartum depression 01/05/2020 05/23/2021 Size of fetus inconsistent with dates in third t rimester 03/10/2019 04/25/2019 Overview: 02/24/19-Size greater than dates, Growth US at 32w2d shows SHANAE 17.3, 64th percentile, cephalic. Chrissie Olivo APRN.CNM Anemia complicating , third trimester 1 03/30/2018 04/25/2019 Supervision of wit h history of infertility, first trimester 08/15/2018 04/25/2019 Overview: 08/15/2018Patient and have been trying to conceive for the past 3 years. She has seen Dr Gordon in the past. No reproductive assistance this -able to conceive on own. TKRN Family history of congenital heart defect 201805/23/2021 Overview: 08/15/2018 FOB's 3rd cousin born with hole in heart-corrective surgery was done. TKRN Lumbar back pain 07/22/2018 01/06/2019 Hepatomegaly, not elsewhere classified 8 01/06/2019 Pain of upper abdomen 12/28/2016 05/20/2018 Menorrhagia with regular cycle 12/28/2016 1 Incisional pain 12/28/2016 05/20/2018 Irregular menstrual cycle 10/16/20162018 BMI 50.0-59.9, adult 10/10/2016 05/20/2018 Morbid obesity 10/10/2016 10/17/2016 Female infertility 08/08/2016 01/06/2019 Obesity 08/08/2016 documented as of this encounter (statuses as of 08/30/2022) [facility] History of Past illness Narrative* Problem Noted Date Resolved Date Prior miscarriage with , antepartum 05/23/2021 Overview: 10/07/2020atient had a miscarriage and D&C in May. She has been followed by quantitative hCGs. We did talk about grief after a loss. She does believe she had some depression following the miscarriage. Information on the Forget me not support group forming given to patient. TKRN Antepartum multigravida of advanced maternal age 0710/07/2020 05/23/2021 Overview: 10/07/2020 advanced maternal age discussed. Patient desires nuchal ultrasound and materniti 21 testing. TKRN with history of section, ante 05/17/2020 05/23/2021 Overview: 10/07/2020t had a previous C section. She desires a repeat C sectionby Dr Groves. She states that she was told by Dr. Groves it was probably best for her to have a repeat . I have ordered EMMIs on and for the patient and advised her to watch this prior to her appointment with Dr. Groves .TKRN Obesity during 05/17/2020 Patient requested diagnostic testing 05/17/2020 05/23/2021 Overview: 10/07/2020 Patient desires nuchal u ltrasound and maternity 21 testing. Considering genetic carrier screening testing. Lillie Wilde RN Postpartum depression 01/05/2020 05/23/2021 Size of fetus inconsistent with dates in third t rimester 03/10/2019 04/25/2019 Overview: 02/24/19-Size greater than dates, Growth US at 32w2d shows SHANAE 17.3, 64th percentile, cephalic. Chrissie Olivo APRN.CNM Anemia complicating , third trimester 1 03/30/2018 04/25/2019 Supervision of wit h history of infertility, first trimester 08/15/2018 04/25/2019 Overview: 08/15/2018Patient and have been trying to conceive for the past 3 years. She has seen Dr Gordon in the past. No reproductive assistance this -able to conceive on own. TKRN Family history of congenital heart defect 201805/23/2021 Overview: 08/15/2018 FOB's 3rd cousin born with hole in heart-corrective surgery was done. TKRN Lumbar back pain 07/22/2018 01/06/2019 Hepatomegaly, not elsewhere classified 8 01/06/2019 Pain of upper abdomen 12/28/2016 05/20/2018 Menorrhagia with regular cycle 12/28/2016 1 Incisional pain 12/28/2016 05/20/2018 Irregular menstrual cycle 10/16/20162018 BMI 50.0-59.9, adult 10/10/2016 05/20/2018 Morbid obesity 10/10/2016 10/17/2016 Female infertility 08/08/2016 01/06/2019 Obesity 08/08/2016 documented as of this encounter (statuses as of 09/18/2022) [facility]07-15-2021 History of Past illness Narrative* Problem Noted Date Resolved Date Prior miscarriage with , antepartum 05/23/2021 Overview: 10/07/2020atient had a miscarriage and D&C in May. She has been followed by quantitative hCGs. We did talk about grief after a loss. She does believe she had some depression following the miscarriage. Information on the Forget me not support group forming given to patient. TKRN Antepartum multigravida of advanced maternal age 0710/07/2020 05/23/2021 Overview: 10/07/2020 advanced maternal age discussed. Patient desires nuchal ultrasound and materniti 21 testing. TKRN with history of section, ante 05/17/2020 05/23/2021 Overview: 10/07/2020t had a previous C section. She desires a repeat C sectionby Dr Groves. She states that she was told by Dr. Groves it was probably best for her to have a repeat . I have ordered EMMIs on and for the patient and advised her to watch this prior to her appointment with Dr. Groves .TKRN Obesity during 05/17/2020 022 Patient requested diagnostic testing 05/17/2020 05/23/2021 Overview: 10/07/2020 Patient desires nuchal u ltrasound and maternity 21 testing. Considering genetic carrier screening testing. Lillie Wilde RN Postpartum depression 01/05/2020 05/23/2021 Size of fetus inconsistent with dates in third t rimester 03/10/2019 04/25/2019 Overview: 02/24/19-Size greater than dates, Growth US at 32w2d shows SHANAE 17.3, 64th percentile, cephalic. Chrissie Olivo, WATCH REPAIR TECHNICIAN.CNM Anemia complicating , third trimester 1 03/30/2018 04/25/2019 Supervision of wit h history of infertility, first trimester 08/15/2018 04/25/2019 Overview: 08/15/2018Patient and have been trying to conceive for the past 3 years. She has seen Dr Gordon in the past. No reproductive assistance this -able to conceive on own. TKRN Family history of congenital heart defect 201805/23/2021 Overview: 08/15/2018 FOB's 3rd cousin born with hole in heart-corrective surgery was done. TKRN Lumbar back pain 07/22/2018 01/06/2019 Hepatomegaly, not elsewhere classified 8 01/06/2019 Pain of upper abdomen 12/28/2016 05/20/2018 Menorrhagia with regular cycle 12/28/2016 1 Incisional pain 12/28/2016 05/20/2018 Irregular menstrual cycle 10/16/20162018 BMI 50.0-59.9, adult 10/10/2016 05/20/2018 Morbid obesity 10/10/2016 10/17/2016 Female infertility 08/08/2016 01/06/2019 Obesity 08/08/2016 documented as of this encounter (statuses as of 09/20/2022) [facility]07-15-2021 History of Past illness Narrative* Problem Noted Date Diagnosed Date Resolved Date Prior miscarriage with , antepartum 05/23/2021 Overview: 1Patient had a miscarriage and D&C in May. She has been followed by quantitative hCGs. We did talk about grief after a loss. She does believe she had some depression following the miscarriage. Information on the Forget me not support group forming given to patient. TKRN Antepartum multigravida of a dvanced maternal age 0710/07/2020 05/23/2021 Overview: 10/07/2020 advanced maternal age discussed. Patient desires nuchal ultrasound and materniti 21 testing. TKRN with history of ce sarean section, antepartum 05/17/2020 05/23/2021 Overview: 10/07/2020t had a previous C section. She desires a repeat C sectionby Dr Groves. She states that she was told by Dr. Groves it was probably best for her to have a repeat . I have ordered EMMIs on and for the patient and advised her to watch this prior to her appointment with Dr. Groves .TKRN Obesity during 05/17/2020 Patient requested diagnostic testing 05/17/2020 05/23/2021 Overview: 10/07/2020 Patient desires nuchal u ltrasound and maternity 21 testing. Considering genetic carrier screening testing. Lillie Wilde RN Postpartum depression 01/05/20202021 Size of fetus inconsistent w ith dates in third trimester 03/10/2019 04/25/2019 Overview: 02/24/19-Size greater than dates, Growth US at 32w2d shows SHANAE 17.3, 64th percentile, cephalic. Chrissie Olivo APRN.CNM Anemia complicating pregnanc y, third trimester 01/28/2019 04/25/2019 Supervision of wit h history of infertility, first trimester 08/15/2018 04/25/2019 Overview: 08/15/2018Patient and have been trying to conceive for the past 3 years. She has seen Dr Gordon in the past. No reproductive assistance this -able to conceive on own. TKRN Family history of congenital heart defect 08/15/2018 05/23/2021 Overview: 08/15/2018 FOB's 3rd cousin born with hole in heart-corrective surgery was done. TKRN Lumbar back pain 07/22/2018 01/06/2019 Hepatomegaly, not elsewhere classified 11/16/2017 01/06/2019 Pain of upper abdomen 12/28/20162018 Menorrhagia with regular cycle 12/28/2016 01/06/2019 Incisional pain 12/28/2016 05/20/2018 Irregular menstrual cycle 10/16/2016 BMI 50.0-59.9, adult 10/10/2016 019 Morbid obesity 10/10/2016 10/17/2016 Female infertility 08/08/2016 9 Obesity 08/08/2016 documented as of this encounter (statuses as of 11/06/2022) [facility]-2021 History of Past illness Narrative* Problem Noted Date Diagnosed Date Resolved Date Prior miscarriage with , antepartum 05/23/2021 Overview: 10/07/2020atient had a miscarriage and D&C in May. She has been followed by quantitative hCGs. We did talk about grief after a loss. She does believe she had some depression following the miscarriage. Information on the Forget me not support group forming given to patient. TKRN Antepartum multigravida of a dvanced maternal age 0710/07/2020 05/23/2021 Overview: 10/07/2020 advanced maternal age discussed. Patient desires nuchal ultrasound and materniti 21 testing. TKRN with history of ce sarean section, antepartum 05/17/2020 05/23/2021 Overview: 10/07/2020t had a previous C section. She desires a repeat C sectionby Dr Groves. She states that she was told by Dr. Groves it was probably best for her to have a repeat . I have ordered EMMIs on and for the patient and advised her to watch this prior to her appointment with Dr. Groves .TKRN Obesity during 05/17/2020 Patient requested diagnostic testing 05/17/2020 05/23/2021 Overview: 10/07/2020 Patient desires nuchal u ltrasound and maternity 21 testing. Considering genetic carrier screening testing. Lillie Wilde RN Postpartum depression 01/05/20202021 Size of fetus inconsistent w ith dates in third trimester 03/10/2019 04/25/2019 Overview: 02/24/19-Size greater than dates, Growth US at 32w2d shows SHANAE 17.3, 64th percentile, cephalic. Chrissie Olivo APRN.CNM Anemia complicating pregnanc y, third trimester 01/28/2019 04/25/2019 Supervision of wit h history of infertility, first trimester 08/15/2018 04/25/2019 Overview: 08/15/2018Patient and have been trying to conceive for the past 3 years. She has seen Dr Gordon in the past. No reproductive assistance this -able to conceive on own. TKRN Family history of congenital heart defect 08/15/2018 05/23/2021 Overview: 08/15/2018 FOB's 3rd cousin born with hole in heart-corrective surgery was done. TKRN Lumbar back pain 07/22/2018 01/06/2019 Hepatomegaly, not elsewhere classified 11/16/2017 01/06/2019 Pain of upper abdomen 12/28/20162018 Menorrhagia with regular cycle 12/28/2016 01/06/2019 Incisional pain 12/28/2016 05/20/2018 Irregular menstrual cycle 10/16/2016 BMI 50.0-59.9, adult 10/10/2016 019 Morbid obesity 10/10/2016 10/17/2016 Female infertility 08/08/2016 9 Obesity 08/08/2016 documented as of this encounter (statuses as of 11/20/2022) [facility]-2021 History of Past illness Narrative* Problem Noted Date Diagnosed Date Resolved Date Prior miscarriage with , antepartum 1 05/23/2021 Overview: 1Patient had a miscarriage and D&C in May. She has been followed by quantitative hCGs. We did talk about grief after a loss. She does believe she had some depression following the miscarriage. Information on the Forget me not support group forming given to patient. TKRN Antepartum multigravida of a dvanced maternal age 0710/07/2020 05/23/2021 Overview: 10/07/2020 advanced maternal age discussed. Patient desires nuchal ultrasound and materniti 21 testing. TKRN with history of ce sarean section, antepartum 05/17/2020 05/23/2021 Overview: 10/07/2020t had a previous C section. She desires a repeat C sectionby Dr Groves. She states that she was told by Dr. Groves it was probably best for her to have a repeat . I have ordered EMMIs on and for the patient and advised her to watch this prior to her appointment with Dr. Groves .TKRN Obesity during 05/17/2020 Patient requested diagnostic testing 05/17/2020 05/23/2021 Overview: 10/07/2020 Patient desires nuchal u ltrasound and maternity 21 testing. Considering genetic carrier screening testing. Lillie Wilde RN Postpartum depression 01/05/20202021 Size of fetus inconsistent w ith dates in third trimester 03/10/2019 04/25/2019 Overview: 02/24/19-Size greater than dates, Growth US at 32w2d shows SHANAE 17.3, 64th percentile, cephalic. Chrissie Olivo APRN.CNM Anemia complicating pregnanc y, third trimester 01/28/2019 04/25/2019 Supervision of wit h history of infertility, first trimester 08/15/2018 04/25/2019 Overview: 08/15/2018Patient and have been trying to conceive for the past 3 years. She has seen Dr Gordon in the past. No reproductive assistance this -able to conceive on own. TKRN Family history of congenital heart defect 08/15/2018 05/23/2021 Overview: 08/15/2018 FOBessie's 3rd cousin born with hole in heart-corrective surgery was done. TKRN Lumbar back pain 07/22/2018 01/06/2019 Hepatomegaly, not elsewhere classified 11/16/2017 01/06/2019 Pain of upper abdomen 12/28/20162018 Menorrhagia with regular cycle 12/28/2016 01/06/2019 Incisional pain 12/28/2016 05/20/2018 Irregular menstrual cycle 10/16/2016 BMI 50.0-59.9, adult 10/10/2016 019 Morbid obesity 10/10/2016 10/17/2016 Female infertility 08/08/2016 9 Obesity 08/08/2016 documented as of this encounter (statuses as of 12/07/2022) [facility] History of Past illness Narrative* Problem Noted Date Diagnosed Date Resolved Date Prior miscarriage with , antepartum 05/23/2021 Overview: 10/07/2020atient had a miscarriage and D&C in May. She has been followed by quantitative hCGs. We did talk about grief after a loss. She does believe she had some depression following the miscarriage. Information on the Forget me not support group forming given to patient. TKRN Antepartum multigravida of a dvanced maternal age 0710/07/2020 05/23/2021 Overview: 10/07/2020 advanced maternal age discussed. Patient desires nuchal ultrasound and materniti 21 testing. TKRN with history of ce sarean section, antepartum 05/17/2020 05/23/2021 Overview: 10/07/2020t had a previous C section. She desires a repeat C sectionby Dr Groves. She states that she was told by Dr. Groves it was probably best for her to have a repeat . I have ordered EMMIs on and for the patient and advised her to watch this prior to her appointment with Dr. Groves .TKRN Obesity during 05/17/2020 Patient requested diagnostic testing 05/17/2020 05/23/2021 Overview: 10/07/2020 Patient desires nuchal u ltrasound and maternity 21 testing. Considering genetic carrier screening testing. Lillie Wilde RN Postpartum depression 01/05/20202021 Size of fetus inconsistent w ith dates in third trimester 03/10/2019 04/25/2019 Overview: 02/24/19-Size greater than dates, Growth US at 32w2d shows SHANAE 17.3, 64th percentile, cephalic. Chrissie Olivo APRN.CNM Anemia complicating pregnanc y, third trimester 01/28/2019 04/25/2019 Supervision of wit h history of infertility, first trimester 08/15/2018 04/25/2019 Overview: 08/15/2018Patient and have been trying to conceive for the past 3 years. She has seen Dr Gordon in the past. No reproductive assistance this -able to conceive on own. TKRN Family history of congenital heart defect 08/15/2018 05/23/2021 Overview: 08/15/2018 FOB's 3rd cousin born with hole in heart-corrective surgery was done. TKRN Lumbar back pain 07/22/2018 01/06/2019 Hepatomegaly, not elsewhere classified 11/16/2017 01/06/2019 Pain of upper abdomen 12/28/20162018 Menorrhagia with regular cycle 12/28/2016 01/06/2019 Incisional pain 12/28/2016 05/20/2018 Irregular menstrual cycle 10/16/2016 BMI 50.0-59.9, adult 10/10/2016 019 Morbid obesity 10/10/2016 10/17/2016 Female infertility 08/08/2016 9 Obesity 08/08/2016 documented as of this encounter (statuses as of 01/02/2023) [facility]21 History of Past illness Narrative* Problem Noted Date Diagnosed Date Resolved Date Prior miscarriage with , antepartum 05/23/2021 Overview: 10/07/2020atient had a miscarriage and D&C in May. She has been followed by quantitative hCGs. We did talk about grief after a loss. She does believe she had some depression following the miscarriage. Information on the Forget me not support group forming given to patient. TKRN Antepartum multigravida of a dvanced maternal age 0710/07/2020 05/23/2021 Overview: 10/07/2020 advanced maternal age discussed. Patient desires nuchal ultrasound and materniti 21 testing. TKRN with history of ce sarean section, antepartum 05/17/2020 05/23/2021 Overview: 10/07/2020t had a previous C section. She desires a repeat C sectionby Dr Groves. She states that she was told by Dr. Groves it was probably best for her to have a repeat . I have ordered EMMIs on and for the patient and advised her to watch this prior to her appointment with Dr. Groves .TKRN Obesity during 05/17/2020 Patient requested diagnostic testing 05/17/2020 05/23/2021 Overview: 10/07/2020 Patient desires nuchal u ltrasound and maternity 21 testing. Considering genetic carrier screening testing. Lillie Wilde RN Postpartum depression 01/05/20202021 Size of fetus inconsistent w ith dates in third trimester 03/10/2019 04/25/2019 Overview: 02/24/19-Size greater than dates, Growth US at 32w2d shows SHANAE 17.3, 64th percentile, cephalic. Chrissie Olivo APRN.CNM Anemia complicating pregnanc y, third trimester 01/28/2019 04/25/2019 Supervision of wit h history of infertility, first trimester 08/15/2018 04/25/2019 Overview: 08/15/2018Patient and have been trying to conceive for the past 3 years. She has seen Dr Gordon in the past. No reproductive assistance this -able to conceive on own. TKRN Family history of congenital heart defect 08/15/2018 05/23/2021 Overview: 08/15/2018 FOB's 3rd cousin born with hole in heart-corrective surgery was done. TKRN Lumbar back pain 07/22/2018 01/06/2019 Hepatomegaly, not elsewhere classified 11/16/2017 01/06/2019 Pain of upper abdomen 12/28/20162018 Menorrhagia with regular cycle 12/28/2016 01/06/2019 Incisional pain 12/28/2016 05/20/2018 Irregular menstrual cycle 10/16/2016 BMI 50.0-59.9, adult 10/10/2016 019 Morbid obesity 10/10/2016 10/17/2016 Female infertility 08/08/2016 9 Obesity 08/08/2016 documented as of this encounter (statuses as of 01/02/2023) [facility]21 History of Past illness Narrative* Problem Noted Date Diagnosed Date Resolved Date Prior miscarriage with , antepartum 05/23/2021 Overview: 1Patient had a miscarriage and D&C in May. She has been followed by quantitative hCGs. We did talk about grief after a loss. She does believe she had some depression following the miscarriage. Information on the Forget me not support group forming given to patient. TKRN Antepartum multigravida of a dvanced maternal age 0710/07/2020 05/23/2021 Overview: 10/07/2020 advanced maternal age discussed. Patient desires nuchal ultrasound and materniti 21 testing. TKRN with history of ce sarean section, antepartum 05/17/2020 05/23/2021 Overview: 10/07/2020t had a previous C section. She desires a repeat C sectionby Dr Groves. She states that she was told by Dr. Groves it was probably best for her to have a repeat . I have ordered EMMIs on and for the patient and advised her to watch this prior to her appointment with Dr. Groves .TKRN Obesity during 05/17/2020 Patient requested diagnostic testing 05/17/2020 05/23/2021 Overview: 10/07/2020 Patient desires nuchal u ltrasound and maternity 21 testing. Considering genetic carrier screening testing. Lillie Wilde RN Postpartum depression 01/05/20202021 Size of fetus inconsistent w ith dates in third trimester 03/10/2019 04/25/2019 Overview: 02/24/19-Size greater than dates, Growth US at 32w2d shows SHANAE 17.3, 64th percentile, cephalic. Chrissie Olivo APRN.CNM Anemia complicating pregnanc y, third trimester 01/28/2019 04/25/2019 Supervision of wit h history of infertility, first trimester 08/15/2018 04/25/2019 Overview: 08/15/2018Patient and have been trying to conceive for the past 3 years. She has seen Dr Gordon in the past. No reproductive assistance this -able to conceive on own. TKRN Family history of congenital heart defect 08/15/2018 05/23/2021 Overview: 08/15/2018 FOB's 3rd cousin born with hole in heart-corrective surgery was done. TKRN Lumbar back pain 07/22/2018 01/06/2019 Hepatomegaly, not elsewhere classified 11/16/2017 01/06/2019 Pain of upper abdomen 12/28/20162018 Menorrhagia with regular cycle 12/28/2016 01/06/2019 Incisional pain 12/28/2016 05/20/2018 Irregular menstrual cycle 10/16/2016 BMI 50.0-59.9, adult 10/10/2016 019 Morbid obesity 10/10/2016 10/17/2016 Female infertility 08/08/2016 9 Obesity 08/08/2016 documented as of this encounter (statuses as of 01/10/2023) [facility] History of Past illness Narrative* Problem Noted Date Diagnosed Date Resolved Date Prior miscarriage with , antepartum 05/23/2021 Overview: 10/07/2020atient had a miscarriage and D&C in May. She has been followed by quantitative hCGs. We did talk about grief after a loss. She does believe she had some depression following the miscarriage. Information on the Forget me not support group forming given to patient. TKRN Antepartum multigravida of a dvanced maternal age 0710/07/2020 05/23/2021 Overview: 10/07/2020 advanced maternal age discussed. Patient desires nuchal ultrasound and materniti 21 testing. TKRN with history of ce sarean section, antepartum 05/17/2020 05/23/2021 Overview: 10/07/2020t had a previous C section. She desires a repeat C sectionby Dr Groves. She states that she was told by Dr. Groves it was probably best for her to have a repeat . I have ordered EMMIs on and for the patient and advised her to watch this prior to her appointment with Dr. Groves .TKRN Obesity during 05/17/2020 Patient requested diagnostic testing 05/17/2020 05/23/2021 Overview: 10/07/2020 Patient desires nuchal u ltrasound and maternity 21 testing. Considering genetic carrier screening testing. Lillie Wilde RN Postpartum depression 01/05/20202021 Size of fetus inconsistent w ith dates in third trimester 03/10/2019 04/25/2019 Overview: 02/24/19-Size greater than dates, Growth US at 32w2d shows SHANAE 17.3, 64th percentile, cephalic. Chrissie Olivo APRN.CNM Anemia complicating pregnanc y, third trimester 01/28/2019 04/25/2019 Supervision of wit h history of infertility, first trimester 08/15/2018 04/25/2019 Overview: 08/15/2018Patient and have been trying to conceive for the past 3 years. She has seen Dr Gordon in the past. No reproductive assistance this -able to conceive on own. TKRN Family history of congenital heart defect 08/15/2018 05/23/2021 Overview: 08/15/2018 FOB's 3rd cousin born with hole in heart-corrective surgery was done. TKRN Lumbar back pain 07/22/2018 01/06/2019 Hepatomegaly, not elsewhere classified 11/16/2017 01/06/2019 Pain of upper abdomen 12/28/20162018 Menorrhagia with regular cycle 12/28/2016 01/06/2019 Incisional pain 12/28/2016 05/20/2018 Irregular menstrual cycle 10/16/2016 BMI 50.0-59.9, adult 10/10/2016 019 Morbid obesity 10/10/2016 10/17/2016 Female infertility 08/08/2016 9 Obesity 08/08/2016 documented as of this encounter (statuses as of 01/31/2023) [facility] History of Past illness Narrative* Problem Noted Date Diagnosed Date Resolved Date Prior miscarriage with , antepartum 05/23/2021 Overview: 1Patient had a miscarriage and D&C in May. She has been followed by quantitative hCGs. We did talk about grief after a loss. She does believe she had some depression following the miscarriage. Information on the Forget me not support group forming given to patient. TKRN Antepartum multigravida of a dvanced maternal age 0710/07/2020 05/23/2021 Overview: 10/07/2020 advanced maternal age discussed. Patient desires nuchal ultrasound and materniti 21 testing. TKRN with history of ce sarean section, antepartum 05/17/2020 05/23/2021 Overview: 10/07/2020t had a previous C section. She desires a repeat C sectionby Dr Groves. She states that she was told by Dr. Groves it was probably best for her to have a repeat . I have ordered EMMIs on and for the patient and advised her to watch this prior to her appointment with Dr. Groves .TKRN Obesity during 05/17/2020 Patient requested diagnostic testing 05/17/2020 05/23/2021 Overview: 10/07/2020 Patient desires nuchal u ltrasound and maternity 21 testing. Considering genetic carrier screening testing. Lillie Wilde RN Postpartum depression 01/05/20202021 Size of fetus inconsistent w ith dates in third trimester 03/10/2019 04/25/2019 Overview: 02/24/19-Size greater than dates, Growth US at 32w2d shows SHANAE 17.3, 64th percentile, cephalic. Chrissie Olivo APRN.CNM Anemia complicating pregnanc y, third trimester 01/28/2019 04/25/2019 Supervision of wit h history of infertility, first trimester 08/15/2018 04/25/2019 Overview: 08/15/2018Patient and have been trying to conceive for the past 3 years. She has seen Dr Gordon in the past. No reproductive assistance this -able to conceive on own. TKRN Family history of congenital heart defect 08/15/2018 05/23/2021 Overview: 08/15/2018 FOB's 3rd cousin born with hole in heart-corrective surgery was done. TKRN Lumbar back pain 07/22/2018 01/06/2019 Hepatomegaly, not elsewhere classified 11/16/2017 01/06/2019 Pain of upper abdomen 12/28/20162018 Menorrhagia with regular cycle 12/28/2016 01/06/2019 Incisional pain 12/28/2016 05/20/2018 Irregular menstrual cycle 10/16/2016 BMI 50.0-59.9, adult 10/10/2016 019 Morbid obesity 10/10/2016 10/17/2016 Female infertility 08/08/2016 9 Obesity 08/08/2016 documented as of this encounter (statuses as of 03/07/2023) [facility] History of Past illness Narrative* Problem Noted Date Diagnosed Date Resolved Date Prior miscarriage with , antepartum 05/23/2021 Overview: 10/07/2020atient had a miscarriage and D&C in May. She has been followed by quantitative hCGs. We did talk about grief after a loss. She does believe she had some depression following the miscarriage. Information on the Forget me not support group forming given to patient. TKRN Antepartum multigravida of a dvanced maternal age 0710/07/2020 05/23/2021 Overview: 10/07/2020 advanced maternal age discussed. Patient desires nuchal ultrasound and materniti 21 testing. TKRN with history of ce sarean section, antepartum 05/17/2020 05/23/2021 Overview: 10/07/2020t had a previous C section. She desires a repeat C sectionby Dr Groves. She states that she was told by Dr. Groves it was probably best for her to have a repeat . I have ordered EMMIs on and for the patient and advised her to watch this prior to her appointment with Dr. Groves .TKRN Obesity during 05/17/2020 Patient requested diagnostic testing 05/17/2020 05/23/2021 Overview: 10/07/2020 Patient desires nuchal u ltrasound and maternity 21 testing. Considering genetic carrier screening testing. Lillie Wilde RN Postpartum depression 01/05/20202021 Size of fetus inconsistent w ith dates in third trimester 03/10/2019 04/25/2019 Overview: 02/24/19-Size greater than dates, Growth US at 32w2d shows SHANAE 17.3, 64th percentile, cephalic. Chrissie Olivo APRN.CNM Anemia complicating pregnanc y, third trimester 01/28/2019 04/25/2019 Supervision of wit h history of infertility, first trimester 08/15/2018 04/25/2019 Overview: 08/15/2018Patient and have been trying to conceive for the past 3 years. She has seen Dr Gordon in the past. No reproductive assistance this -able to conceive on own. TKRN Family history of congenital heart defect 08/15/2018 05/23/2021 Overview: 08/15/2018 FOB's 3rd cousin born with hole in heart-corrective surgery was done. TKRN Lumbar back pain 07/22/2018 01/06/2019 Hepatomegaly, not elsewhere classified 11/16/2017 01/06/2019 Pain of upper abdomen 12/28/20162018 Menorrhagia with regular cycle 12/28/2016 01/06/2019 Incisional pain 12/28/2016 05/20/2018 Irregular menstrual cycle 10/16/2016 BMI 50.0-59.9, adult 10/10/2016 019 Morbid obesity 10/10/2016 10/17/2016 Female infertility 08/08/2016 9 Obesity 08/08/2016 documented as of this encounter (statuses as of 05/01/2023) [facility] History of Past illness Narrative* Problem Noted Date Diagnosed Date Resolved Date Prior miscarriage with , antepartum 1 05/23/2021 Overview: 1Patient had a miscarriage and D&C in May. She has been followed by quantitative hCGs. We did talk about grief after a loss. She does believe she had some depression following the miscarriage. Information on the Forget me not support group forming given to patient. TKRN Antepartum multigravida of a dvanced maternal age 0710/07/2020 05/23/2021 Overview: 10/07/2020 advanced maternal age discussed. Patient desires nuchal ultrasound and materniti 21 testing. TKRN with history of ce sarean section, antepartum 05/17/2020 05/23/2021 Overview: 10/07/2020t had a previous C section. She desires a repeat C sectionby Dr Groves. She states that she was told by Dr. Groves it was probably best for her to have a repeat . I have ordered EMMIs on and for the patient and advised her to watch this prior to her appointment with Dr. Groves .TKRN Obesity during 05/17/2020 Patient requested diagnostic testing 05/17/2020 05/23/2021 Overview: 10/07/2020 Patient desires nuchal u ltrasound and maternity 21 testing. Considering genetic carrier screening testing. Lillie Wilde RN Postpartum depression 01/05/20202021 Size of fetus inconsistent w ith dates in third trimester 03/10/2019 04/25/2019 Overview: 02/24/19-Size greater than dates, Growth US at 32w2d shows SHANAE 17.3, 64th percentile, cephalic. Chrissie Olivo APRN.CNM Anemia complicating pregnanc y, third trimester 01/28/2019 04/25/2019 Supervision of wit h history of infertility, first trimester 08/15/2018 04/25/2019 Overview: 08/15/2018Patient and have been trying to conceive for the past 3 years. She has seen Dr Gordon in the past. No reproductive assistance this -able to conceive on own. TKRN Family history of congenital heart defect 08/15/2018 05/23/2021 Overview: 08/15/2018 FOB's 3rd cousin born with hole in heart-corrective surgery was done. TKRN Lumbar back pain 07/22/2018 01/06/2019 Hepatomegaly, not elsewhere classified 11/16/2017 01/06/2019 Pain of upper abdomen 12/28/20162018 Menorrhagia with regular cycle 12/28/2016 01/06/2019 Incisional pain 12/28/2016 05/20/2018 Irregular menstrual cycle 10/16/2016 BMI 50.0-59.9, adult 10/10/2016 019 Morbid obesity 10/10/2016 10/17/2016 Female infertility 08/08/2016 9 Obesity 08/08/2016 documented as of this encounter (statuses as of 05/08/2023) [facility]21 History of Past illness Narrative* Problem Noted Date Diagnosed Date Resolved Date Prior miscarriage with , antepartum 05/23/2021 Overview: 10/07/2020atient had a miscarriage and D&C in May. She has been followed by quantitative hCGs. We did talk about grief after a loss. She does believe she had some depression following the miscarriage. Information on the Forget me not support group forming given to patient. TKRN Antepartum multigravida of a dvanced maternal age 0710/07/2020 05/23/2021 Overview: 10/07/2020 advanced maternal age discussed. Patient desires nuchal ultrasound and materniti 21 testing. TKRN with history of ce sarean section, antepartum 05/17/2020 05/23/2021 Overview: 10/07/2020t had a previous C section. She desires a repeat C sectionby Dr Groves. She states that she was told by Dr. Groves it was probably best for her to have a repeat . I have ordered EMMIs on and for the patient and advised her to watch this prior to her appointment with Dr. Groves .TKRN Obesity during 05/17/2020 Patient requested diagnostic testing 05/17/2020 05/23/2021 Overview: 10/07/2020 Patient desires nuchal u ltrasound and maternity 21 testing. Considering genetic carrier screening testing. Lillie Wilde RN Postpartum depression 01/05/20202021 Size of fetus inconsistent w ith dates in third trimester 03/10/2019 04/25/2019 Overview: 02/24/19-Size greater than dates, Growth US at 32w2d shows SHANAE 17.3, 64th percentile, cephalic. Chrissie Olivo APRN.CNM Anemia complicating pregnanc y, third trimester 01/28/2019 04/25/2019 Supervision of wit h history of infertility, first trimester 08/15/2018 04/25/2019 Overview: 08/15/2018Patient and have been trying to conceive for the past 3 years. She has seen Dr Gordon in the past. No reproductive assistance this -able to conceive on own. TKRN Family history of congenital heart defect 08/15/2018 05/23/2021 Overview: 08/15/2018 FOB's 3rd cousin born with hole in heart-corrective surgery was done. TKRN Lumbar back pain 07/22/2018 01/06/2019 Hepatomegaly, not elsewhere classified 11/16/2017 01/06/2019 Pain of upper abdomen 12/28/20162018 Menorrhagia with regular cycle 12/28/2016 01/06/2019 Incisional pain 12/28/2016 05/20/2018 Irregular menstrual cycle 10/16/2016 BMI 50.0-59.9, adult 10/10/2016 019 Morbid obesity 10/10/2016 10/17/2016 Female infertility 08/08/2016 9 Obesity 08/08/2016 documented as of this encounter (statuses as of 06/04/2023) [facility]2021 History of Past illness Narrative* Problem Noted Date Diagnosed Date Resolved Date Prior miscarriage with , antepartum 05/23/2021 Overview: 10/07/2020atient had a miscarriage and D&C in May. She has been followed by quantitative hCGs. We did talk about grief after a loss. She does believe she had some depression following the miscarriage. Information on the Forget me not support group forming given to patient. TKRN Antepartum multigravida of a dvanced maternal age 0710/07/2020 05/23/2021 Overview: 10/07/2020 advanced maternal age discussed. Patient desires nuchal ultrasound and materniti 21 testing. TKRN with history of ce sarean section, antepartum 05/17/2020 05/23/2021 Overview: 10/07/2020t had a previous C section. She desires a repeat C sectionby Dr Groves. She states that she was told by Dr. Groves it was probably best for her to have a repeat . I have ordered EMMIs on and for the patient and advised her to watch this prior to her appointment with Dr. Groves .TKRN Obesity during 05/17/2020 Patient requested diagnostic testing 05/17/2020 05/23/2021 Overview: 10/07/2020 Patient desires nuchal u ltrasound and maternity 21 testing. Considering genetic carrier screening testing. Lillie Wilde RN Postpartum depression 01/05/20202021 Size of fetus inconsistent w ith dates in third trimester 03/10/2019 04/25/2019 Overview: 02/24/19-Size greater than dates, Growth US at 32w2d shows SHANAE 17.3, 64th percentile, cephalic. Chrissie Olivo APRN.CNM Anemia complicating pregnanc y, third trimester 01/28/2019 04/25/2019 Supervision of wit h history of infertility, first trimester 08/15/2018 04/25/2019 Overview: 08/15/2018Patient and have been trying to conceive for the past 3 years. She has seen Dr Gordon in the past. No reproductive assistance this -able to conceive on own. TKRN Family history of congenital heart defect 08/15/2018 05/23/2021 Overview: 08/15/2018 FOB's 3rd cousin born with hole in heart-corrective surgery was done. TKRN Lumbar back pain 07/22/2018 01/06/2019 Hepatomegaly, not elsewhere classified 11/16/2017 01/06/2019 Pain of upper abdomen 12/28/20162018 Menorrhagia with regular cycle 12/28/2016 01/06/2019 Incisional pain 12/28/2016 05/20/2018 Irregular menstrual cycle 10/16/2016 BMI 50.0-59.9, adult 10/10/2016 019 Morbid obesity 10/10/2016 10/17/2016 Female infertility 08/08/2016 9 Obesity 08/08/2016 documented as of this encounter (statuses as of 06/12/2023) [facility]21 History of Past illness Narrative* Problem Noted Date Diagnosed Date Resolved Date Prior miscarriage with , antepartum 05/23/2021 Overview: 1Patient had a miscarriage and D&C in May. She has been followed by quantitative hCGs. We did talk about grief after a loss. She does believe she had some depression following the miscarriage. Information on the Forget me not support group forming given to patient. TKRN Antepartum multigravida of a dvanced maternal age 0710/07/2020 05/23/2021 Overview: 10/07/2020 advanced maternal age discussed. Patient desires nuchal ultrasound and materniti 21 testing. TKRN with history of ce sarean section, antepartum 05/17/2020 05/23/2021 Overview: 10/07/2020t had a previous C section. She desires a repeat C sectionby Dr Groves. She states that she was told by Dr. Groves it was probably best for her to have a repeat . I have ordered EMMIs on and for the patient and advised her to watch this prior to her appointment with Dr. Groves .TKRN Obesity during 05/17/2020 Patient requested diagnostic testing 05/17/2020 05/23/2021 Overview: 10/07/2020 Patient desires nuchal u ltrasound and maternity 21 testing. Considering genetic carrier screening testing. Lillie Wilde RN Postpartum depression 01/05/20202021 Size of fetus inconsistent w ith dates in third trimester 03/10/2019 04/25/2019 Overview: 02/24/19-Size greater than dates, Growth US at 32w2d shows SHANAE 17.3, 64th percentile, cephalic. Chrissie Olivo APRN.CNM Anemia complicating pregnanc y, third trimester 01/28/2019 04/25/2019 Supervision of wit h history of infertility, first trimester 08/15/2018 04/25/2019 Overview: 08/15/2018Patient and have been trying to conceive for the past 3 years. She has seen Dr Gordon in the past. No reproductive assistance this -able to conceive on own. TKRN Family history of congenital heart defect 08/15/2018 05/23/2021 Overview: 08/15/2018 FOB's 3rd cousin born with hole in heart-corrective surgery was done. TKRN Lumbar back pain 07/22/2018 01/06/2019 Hepatomegaly, not elsewhere classified 11/16/2017 01/06/2019 Pain of upper abdomen 12/28/20162018 Menorrhagia with regular cycle 12/28/2016 01/06/2019 Incisional pain 12/28/2016 05/20/2018 Irregular menstrual cycle 10/16/2016 BMI 50.0-59.9, adult 10/10/2016 019 Morbid obesity 10/10/2016 10/17/2016 Female infertility 08/08/2016 9 Obesity 08/08/2016 documented as of this encounter (statuses as of 06/20/2023) [facility] History of Past illness Narrative* Problem Noted Date Diagnosed Date Resolved Date Prior miscarriage with , antepartum 05/23/2021 Overview: 10/07/2020atient had a miscarriage and D&C in May. She has been followed by quantitative hCGs. We did talk about grief after a loss. She does believe she had some depression following the miscarriage. Information on the Forget me not support group forming given to patient. TKRN Antepartum multigravida of a dvanced maternal age 0710/07/2020 05/23/2021 Overview: 10/07/2020 advanced maternal age discussed. Patient desires nuchal ultrasound and materniti 21 testing. TKRN with history of ce sarean section, antepartum 05/17/2020 05/23/2021 Overview: 10/07/2020t had a previous C section. She desires a repeat C sectionby Dr Groves. She states that she was told by Dr. Groves it was probably best for her to have a repeat . I have ordered EMMIs on and for the patient and advised her to watch this prior to her appointment with Dr. Groves .TKRN Obesity during 05/17/2020 Patient requested diagnostic testing 05/17/2020 05/23/2021 Overview: 10/07/2020 Patient desires nuchal u ltrasound and maternity 21 testing. Considering genetic carrier screening testing. Lillie Wilde RN Postpartum depression 01/05/20202021 Size of fetus inconsistent w ith dates in third trimester 03/10/2019 04/25/2019 Overview: 02/24/19-Size greater than dates, Growth US at 32w2d shows SHANAE 17.3, 64th percentile, cephalic. Chrissie Olivo APRN.CNM Anemia complicating pregnanc y, third trimester 01/28/2019 04/25/2019 Supervision of wit h history of infertility, first trimester 08/15/2018 04/25/2019 Overview: 08/15/2018Patient and have been trying to conceive for the past 3 years. She has seen Dr Gordon in the past. No reproductive assistance this -able to conceive on own. TKRN Family history of congenital heart defect 08/15/2018 05/23/2021 Overview: 08/15/2018 FOB's 3rd cousin born with hole in heart-corrective surgery was done. TKRN Lumbar back pain 07/22/2018 01/06/2019 Hepatomegaly, not elsewhere classified 11/16/2017 01/06/2019 Pain of upper abdomen 12/28/20162018 Menorrhagia with regular cycle 12/28/2016 01/06/2019 Incisional pain 12/28/2016 05/20/2018 Irregular menstrual cycle 10/16/2016 BMI 50.0-59.9, adult 10/10/2016 019 Morbid obesity 10/10/2016 10/17/2016 Female infertility 08/08/2016 9 Obesity 08/08/2016 documented as of this encounter (statuses as of 07/10/2023) [facility] History of Past illness Narrative* Problem Noted Date Diagnosed Date Resolved Date Prior miscarriage with , antepartum 05/23/2021 Overview: 1Patient had a miscarriage and D&C in May. She has been followed by quantitative hCGs. We did talk about grief after a loss. She does believe she had some depression following the miscarriage. Information on the Forget me not support group forming given to patient. TKRN Antepartum multigravida of a dvanced maternal age 0710/07/2020 05/23/2021 Overview: 10/07/2020 advanced maternal age discussed. Patient desires nuchal ultrasound and materniti 21 testing. TKRN with history of ce sarean section, antepartum 05/17/2020 05/23/2021 Overview: 1Pt had a previous C section. She desires a repeat C sectionby Dr Groves. She states that she was told by Dr. Groves it was probably best for her to have a repeat . I have ordered EMMIs on and for the patient and advised her to watch this prior to her appointment with Dr. Groves .TKRN Obesity during 05/17/2020 Patient requested diagnostic testing 05/17/2020 05/23/2021 Overview: 10/07/2020 Patient desires nuchal u ltrasound and maternity 21 testing. Considering genetic carrier screening testing. Lillie Wilde RN Postpartum depression 01/05/20202021 Size of fetus inconsistent w ith dates in third trimester 03/10/2019 04/25/2019 Overview: 02/24/19-Size greater than dates, Growth US at 32w2d shows SHANAE 17.3, 64th percentile, cephalic. Chrissie Olivo APRN.CNM Anemia complicating pregnanc y, third trimester 01/28/2019 04/25/2019 Supervision of wit h history of infertility, first trimester 08/15/2018 04/25/2019 Overview: 08/15/2018Patient and have been trying to conceive for the past 3 years. She has seen Dr Gordon in the past. No reproductive assistance this -able to conceive on own. TKRN Family history of congenital heart defect 08/15/2018 05/23/2021 Overview: 08/15/2018 FOB's 3rd cousin born with hole in heart-corrective surgery was done. TKRN Lumbar back pain 07/22/2018 01/06/2019 Hepatomegaly, not elsewhere classified 11/16/2017 01/06/2019 Pain of upper abdomen 12/28/20162018 Menorrhagia with regular cycle 12/28/2016 01/06/2019 Incisional pain 12/28/2016 05/20/2018 Irregular menstrual cycle 10/16/2016 BMI 50.0-59.9, adult 10/10/2016 019 Morbid obesity 10/10/2016 10/17/2016 Female infertility 08/08/2016 9 Obesity 08/08/2016 documented as of this encounter (statuses as of 07/11/2023) [facility] History of Past illness Narrative* Problem Noted Date Diagnosed Date Resolved Date Prior miscarriage with , antepartum 05/23/2021 Overview: 10/07/2020atient had a miscarriage and D&C in May. She has been followed by quantitative hCGs. We did talk about grief after a loss. She does believe she had some depression following the miscarriage. Information on the Forget me not support group forming given to patient. TKRN Antepartum multigravida of a dvanced maternal age 0710/07/2020 05/23/2021 Overview: 10/07/2020 advanced maternal age discussed. Patient desires nuchal ultrasound and materniti 21 testing. TKRN with history of ce sarean section, antepartum 05/17/2020 05/23/2021 Overview: 10/07/2020t had a previous C section. She desires a repeat C sectionby Dr Groves. She states that she was told by Dr. Groves it was probably best for her to have a repeat . I have ordered EMMIs on and for the patient and advised her to watch this prior to her appointment with Dr. Groves .TKRN Obesity during 05/17/2020 Patient requested diagnostic testing 05/17/2020 05/23/2021 Overview: 10/07/2020 Patient desires nuchal u ltrasound and maternity 21 testing. Considering genetic carrier screening testing. Lillie Wilde RN Postpartum depression 01/05/20202021 Size of fetus inconsistent w ith dates in third trimester 03/10/2019 04/25/2019 Overview: 02/24/19-Size greater than dates, Growth US at 32w2d shows SHANAE 17.3, 64th percentile, cephalic. Chrissie Olivo, WATCH REPAIR TECHNICIAN.CNM Anemia complicating pregnanc y, third trimester 01/28/2019 04/25/2019 Supervision of wit h history of infertility, first trimester 08/15/2018 04/25/2019 Overview: 08/15/2018Patient and have been trying to conceive for the past 3 years. She has seen Dr Gordon in the past. No reproductive assistance this -able to conceive on own. TKRN Family history of congenital heart defect 08/15/2018 05/23/2021 Overview: 08/15/2018 FOB's 3rd cousin born with hole in heart-corrective surgery was done. TKRN Lumbar back pain 07/22/2018 01/06/2019 Hepatomegaly, not elsewhere classified 11/16/2017 01/06/2019 Pain of upper abdomen 12/28/20162018 Menorrhagia with regular cycle 12/28/2016 01/06/2019 Incisional pain 12/28/2016 05/20/2018 Irregular menstrual cycle 10/16/2016 BMI 50.0-59.9, adult 10/10/2016 019 Morbid obesity 10/10/2016 10/17/2016 Female infertility 08/08/2016 9 Obesity 08/08/2016 documented as of this encounter (statuses as of 07/12/2023) [facility] Acute otitis media, unspecified otitis media type- Primary Acute non-recurrent maxillary sinusitis [facility] Acute otitis media, left- Primary Unspecified otitis media Upper respiratory tract infection, unspecified type Iron deficiency anemia, unspecified iron deficiency anemia type Acquired hypothyroidism Unspecified hypothyroidism [facility]* Diagnosis Acute pain of right knee documented in this encounter [facility] note* Diagnosis Acute pain of right knee- Primary documented in this encounter [facility] note* Diagnosis Epigastric pain- Primary Abdominal pain, epigastric Nausea Nausea alone Acute pain of right knee Effusion of right knee Effusion of lower leg joint Anxiety Anxiety state, unspecified documented in this encounter [facility] note* Diagnosis Upper respiratory tract infection, unspecified type- Primary documented in this encounter [facility] note* Diagnosis Coccyx pain Other disorder of coccyx [facility]* Diagnosis Chronic ROYER (middle ear effusion), left- Primary Hearing loss of left ear, unspecified hearing loss type Coccyx pain Other disorder of coccyx documented in this encounter [facility] note* Diagnosis Flu-like symptoms- Primary Other general symptoms Viral URI Acute upper respiratory infections of unspecified site documented in this encounter [facility] note* Diagnosis KELLEY (generalized anxiety disorder)- Primary Generalized anxiety disorder Insulin resistance Dysmetabolic Syndrome X PCOS (polycystic ovarian syndrome) Polycystic ovaries Hypothyroidism, acquired Unspecified hypothyroidism Elevated blood pressure reading without diagnosis of hypertension Acute maxillary sinusitis, recurrence not specified documented in this encounter [facility] note* Diagnosis Insulin resistance Dysmetabolic Syndrome X PCOS (polycystic ovarian syndrome) Polycystic ovaries Hypothyroidism, acquired Unspecified hypothyroidism Elevated blood pressure reading without diagnosis of hypertension documented in this encounter [facility] note* Diagnosis PCOS (polycystic ovarian syndrome) Polycystic ovaries Hypothyroidism, acquired Unspecified hypothyroidism Obesity, Class I, BMI 30-34.9 Obesity, unspecified documented in this encounter [facility] note* Diagnosis Primary hypertension Unspecified essential hypertension documented in this encounter [facility] note* Diagnosis Primary hypertension- Primary Unspecified essential hypertension documented in this encounter [facility] note* Diagnosis Class 3 obesity (HCC)- Primary BMI 50.0-59.9, adult (HCC) Body Mass Index 50.0-59.9, adult PCOS (polycystic ovarian syndrome) Polycystic ovaries Insulin resistance Dysmetabolic Syndrome X documented in this encounter [facility] note* Diagnosis Class 3 severe obesity due to excess calories with serious comorbidity and body mass index (BMI) of 50.0 to 59.9 in adult (HCC)- Primary PCOS (polycystic ovarian syndrome) Polycystic ovaries Hypothyroidism, acquired Unspecified hypothyroidism Obesity, Class I, BMI 30-34.9 Obesity, unspecified History of bariatric surgery Bariatric surgery status Insulin resistance Dysmetabolic Syndrome X Fatty (change of) liver, not elsewhere classified documented in this encounter [facility] note* Diagnosis Hypothyroidism, acquired- Primary Unspecified hypothyroidism documented in this encounter [facility] note* Diagnosis Primary hypertension- Primary Unspecified essential hypertension Depression screening Screening for depression documented in this encounter [facility] note* Diagnosis Obesity, Class I, BMI 30-34.9- Primary Obesity, unspecified documented in this encounter [facility] note* Diagnosis Primary hypertension- Primary Unspecified essential hypertension documented in this encounter [facility] note* Diagnosis Primary hypertension Unspecified essential hypertension documented in this encounter [facility] note* Diagnosis Primary hypertension- Primary Unspecified essential hypertension Fatty (change of) liver, not elsewhere classified Hypothyroidism, acquired Unspecified hypothyroidism documented in this encounter [facility] note* Diagnosis BMI 50.0-59.9, adult (HCC)- Primary Body Mass Index 50.0-59.9, adult documented in this encounter [facility] note* Diagnosis Class 3 obesity (HCC)- Primary BMI 50.0-59.9, adult (HCC) Body Mass Index 50.0-59.9, adult PCOS (polycystic ovarian syndrome) Polycystic ovaries Insulin resistance Dysmetabolic Syndrome X History of bariatric surgery Bariatric surgery status documented in this encounter [facility] note* Diagnosis Class 3 obesity (HCC)- Primary documented in this encounter [facility] note* Diagnosis Primary hypertension- Primary Unspecified essential hypertension documented in this encounter [facility] note* Diagnosis Hypothyroidism, acquired- Primary Unspecified hypothyroidism Insulin resistance Dysmetabolic Syndrome X documented in this encounter [facility] note* Diagnosis Class 3 obesity (HCC)- Primary History of bariatric surgery Bariatric surgery status Insulin resistance Dysmetabolic Syndrome X documented in this encounter [facility] note* Diagnosis Class 3 obesity (HCC)- Primary documented in this encounter [facility] note* Diagnosis Class 3 obesity (HCC)- Primary documented in this encounter [facility] note* Diagnosis Acute cough- Primary Upper respiratory tract infection, unspecified type documented in this encounter [facility] note* Diagnosis Mass overlapping multiple quadrants of right breast- Primary [facility] Diagnosis Viral illness- Primary Unspecified viral infection, in conditions classified elsewhere and of unspecified site Acute cough [facility] Diagnosis Encounter for gynecological examination with abnormal finding- Primary Routine gynecological examination Abnormal uterine bleeding (AUB) Vaginal lesion Other specified noninflammatory disorder of vagina [facility] Diagnosis PCOS (polycystic ovarian syndrome)- Primary Polycystic ovaries Class 3 obesity (HCC) History of bariatric surgery Bariatric surgery status [facility] Diagnosis Abnormal uterine bleeding (AUB)- Primary [facility] Diagnosis Abnormal uterine bleeding (AUB) [facility] Diagnosis Encounter for IUD insertion- Primary Encounter for insertion of intrauterine contraceptive device [facility] Diagnosis Sore throat- Primary Acute pharyngitis [facility] Diagnosis Encounter for IUD insertion- Primary Encounter for insertion of intrauterine contraceptive device [facility] Diagnosis Post-COVID chronic cough- Primary Thrush Candidiasis of mouth [facility] Diagnosis Class 3 obesity (HCC) PCOS (polycystic ovarian syndrome) Polycystic ovaries [facility] Diagnosis Primary hypertension- Primary Unspecified essential hypertension Hypothyroidism, acquired Unspecified hypothyroidism Post-COVID chronic cough [facility] Diagnosis Cough due to GEORGI inhibitor- Primary Cough Primary hypertension Unspecified essential hypertension Hypothyroidism, acquired Unspecified hypothyroidism Mild hyperlipidemia Other and unspecified hyperlipidemia [facility] Diagnosis Anxiety- Primary Anxiety state, unspecified [facility] Diagnosis New daily persistent headache- Primary Hyperglycemia Other abnormal glucose [facility] Diagnosis Parathyroid dysfunction (HCC)- Primary Unspecified disorder of parathyroid gland [facility] Diagnosis Sore throat- Primary Acute pharyngitis Viral illness Unspecified viral infection, in conditions classified elsewhere and of unspecified site [facility] Diagnosis Hyperparathyroidism (HCC)- Primary Hyperparathyroidism, unspecified [facility] Diagnosis Retained tampon, sequela- Primary Vaginal odor Unspecified symptom associated with female genital organs [facility] Diagnosis Obstructive sleep apnea- Primary Obstructive sleep apnea (adult) (pediatric) Class 3 severe obesity with serious comorbidity and body mass index (BMI) of 50.0 to 59.9 in adult, unspecified obesity type (HCC) [facility]* Diagnosis Hypothyroidism, acquired Unspecified hypothyroidism [facility]* Diagnosis Well adult exam- Primary Routine general medical examination at a health care facility Hypothyroidism, acquired Unspecified hypothyroidism Obstructive sleep apnea Obstructive sleep apnea (adult) (pediatric) Class 3 severe obesity with serious comorbidity and body mass index (BMI) of 50.0 to 59.9 in adult, unspecified obesity type (HCC) 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 pain Chronic bilateral low back pain with right-sided sciatica Hemangioma of liver Hemangioma of intra-abdominal structures [facility] Diagnosis Hypothyroidism, acquired Unspecified hypothyroidism documented [facility]* Diagnosis 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 pain Chronic bilateral low back pain with right-sided sciatica documented [facility]* Diagnosis Acute maxillary sinusitis, recurrence not specified- Primary documented in this encounter [facility] Work Phone: Evaluation note* Diagnosis Chronic midline low back pain without sciatica Class 3 severe obesity with serious comorbidity and body mass index (BMI) of 50.0 to 59.9 in adult, unspecified obesity type (HCC) [facility] Diagnosis Lumbar pain- Primary Lumbago [facility]* Diagnosis Lumbar pain- Primary Lumbago [facility]* Diagnosis Lumbar pain- Primary Lumbago [facility]* Diagnosis Lumbar pain- Primary Lumbago [facility]* Diagnosis Chronic midline low back pain without sciatica- Primary Spondylosis without myelopathy or radiculopathy, lumbar region Personal history of gastric bypass Bariatric surgery status Spinal stenosis of lumbar region, unspecified whether neurogenic claudication present [facility]* Diagnosis Dysmenorrhea- Primary Menorrhagia with regular cycle Excessive or frequent menstruation Nipple discharge Other sign and symptom in breast * Assessment & Plan Note - Komal Booth MD - 08/05/2024 10:22 AM EDT Associated Problem(s): Dysmenorrhea US orerdered. Orders: PELVIC US WHI; Future * Assessment & Plan Note - Komal Booth MD - 08/05/2024 10:22 AM EDT Associated Problem(s): Menorrhagia with regular cycle US ordered, reviewed TSH, CBC. Failed IUD adenomyosis, PCOS, not a good endometrial ablation candidate Orders: PELVIC US WHI; Future * Assessment & Plan Note - Komal Booth MD - 08/05/2024 10:22 AM EDT Associated Problem(s): Nipple discharge resolved, but will do diagnostic work up. If neg then cont. self monitoring and if recurs surgery consult Orders: FRED DIAGNOSTIC BILATERAL; Future US BREAST LTD LEFT; Future [facility] Diagnosis Dysmenorrhea- Primary Menorrhagia with regular cycle Excessive or frequent menstruation Nipple discharge Other sign and symptom in breast Chronic midline low back pain without sciatica Spondylosis without myelopathy or radiculopathy, lumbar region [facility]* Diagnosis Dysmenorrhea- Primary Menorrhagia with regular cycle Excessive or frequent menstruation Nipple discharge Other sign and symptom in breast Encounter for gynecological examination (general) (routine) without abnormal findings- Primary Screening for cervical cancer Screening for malignant neoplasm of the cervix Screening for HPV (human papillomavirus) Special screening examination for human papillomavirus (HPV) [facility] Diagnosis Dysmenorrhea- Primary Menorrhagia with regular cycle Excessive or frequent menstruation Nipple discharge Other sign and symptom in breast Abnormal mammogram- Primary Abnormal mammogram, unspecified 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 pain- Primary [facility]* Diagnosis Dysmenorrhea- Primary Menorrhagia with regular cycle Excessive or frequent menstruation Nipple discharge Other sign and symptom in breast Acquired deformity of skull Other specified acquired deformity of head 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 pain- Primary [facility]* Diagnosis Dysmenorrhea- Primary Menorrhagia with regular cycle Excessive or frequent menstruation Nipple discharge Other sign and symptom in breast Fatigue, unspecified type- Primary Brain fog Insomnia, unspecified type Acquired deformity of skull Other specified acquired deformity of head Neck swelling Swelling, mass, or lump in head and neck Vitamin D deficiency Unspecified vitamin D deficiency Acquired deformity of skull Other specified acquired deformity of head 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 pain- Primary [facility]* Diagnosis Dysmenorrhea- Primary Menorrhagia with regular cycle Excessive or frequent menstruation Nipple discharge Other sign and symptom in breast 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 pain- Primary [facility]* Diagnosis Dysmenorrhea- Primary Menorrhagia with regular cycle Excessive or frequent menstruation Nipple discharge Other sign and symptom in breast 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 pain [facility]* Diagnosis Dysmenorrhea- Primary Menorrhagia with regular cycle Excessive or frequent menstruation Nipple discharge Other sign and symptom in breast Nipple discharge Other sign and symptom in breast [facility]* Diagnosis Dysmenorrhea- Primary Menorrhagia with regular cycle Excessive or frequent menstruation Nipple discharge Other sign and symptom in breast Abnormal mammogram Abnormal mammogram, unspecified [facility]* Diagnosis Dysmenorrhea- Primary Menorrhagia with regular cycle Excessive or frequent menstruation Nipple discharge Other sign and symptom in breast Dysmenorrhea- Primary Menorrhagia with regular cycle Excessive or frequent menstruation Malpositioned intrauterine device (IUD), initial encounter [facility] Diagnosis Dysmenorrhea- Primary Menorrhagia with regular cycle Excessive or frequent menstruation Nipple discharge Other sign and symptom in breast Hyperparathyroidism (HCC)- Primary Hyperparathyroidism, unspecified Vitamin D deficiency Unspecified vitamin D deficiency [facility]* Diagnosis Dysmenorrhea- Primary Menorrhagia with regular cycle Excessive or frequent menstruation Nipple discharge Other sign and symptom in breast Class 3 severe obesity with serious comorbidity and body mass index (BMI) of 50.0 to 59.9 in adult, unspecified obesity type (HCC) [facility]* Diagnosis Dysmenorrhea- Primary Menorrhagia with regular cycle Excessive or frequent menstruation Nipple discharge Other sign and symptom in breast Vitamin D deficiency Unspecified vitamin D deficiency [facility]* Diagnosis Dysmenorrhea- Primary Menorrhagia with regular cycle Excessive or frequent menstruation Nipple discharge Other sign and symptom in breast Class 3 severe obesity with serious comorbidity and body mass index (BMI) of 50.0 to 59.9 in adult, unspecified obesity type (HCC) [facility]* Diagnosis Dysmenorrhea- Primary Menorrhagia with regular cycle Excessive or frequent menstruation Nipple discharge Other sign and symptom in breast Lumbar facet joint syndrome- Primary 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 pain [facility]* Diagnosis Dysmenorrhea- Primary Menorrhagia with regular cycle Excessive or frequent menstruation Nipple discharge Other sign and symptom in breast Lumbar facet joint syndrome- Primary Lumbar facet joint syndrome [facility]* Diagnosis Dysmenorrhea- Primary Menorrhagia with regular cycle Excessive or frequent menstruation Nipple discharge Other sign and symptom in breast Chronic midline low back pain without sciatica- Primary Foraminal stenosis of lumbar region Spinal stenosis, lumbar region, without neurogenic claudication Lumbar facet joint syndrome [facility]* Diagnosis Dysmenorrhea- Primary Menorrhagia with regular cycle Excessive or frequent menstruation Nipple discharge Other sign and symptom in breast Primary hyperparathyroidism (HCC)- Primary Primary hyperparathyroidism Lumbar facet joint syndrome [facility]* Diagnosis Dysmenorrhea- Primary Menorrhagia with regular cycle Excessive or frequent menstruation Nipple discharge Other sign and symptom in breast Menorrhagia with irregular cycle- Primary Excessive or frequent menstruation Postoperative pain Other acute postoperative pain Dysmenorrhea Malpositioned IUD, initial encounter Lumbar facet joint syndrome [facility] Diagnosis Dysmenorrhea- Primary Menorrhagia with regular cycle Excessive or frequent menstruation Nipple discharge Other sign and symptom in breast Hyperparathyroidism (HCC) Hyperparathyroidism, unspecified [facility] Attachments The following attachments cannot be sent through Care Everywhere. * Sinusitis in adults (Arabic) [facility] Reason for referral (narrative)* Diagnostic Procedure Only (Routine) - Closed Specialty Diagnoses / Procedures Referred By Contac t Referred To Contact XR IMAGING Diagnoses Acute pain of right knee Procedures XR KNEE GENERAL 4V AP BOTH/PA BOTH/LAT/MERC RIGHT RADIOLOGIC EXAM KNEE COMPLETE 4/MORE VIEWS Farheen Almendarez APRN.CNP [address] [place] [address] Xr Imaging Referral ID Status Reason Start Date Expiration Date V isits Requested Visits Authorized [id number] Closed Auto-Generate d Referral 08/31/2021 09/30/2022 1 1 [facility] for referral (narrative)* Diagnostic Procedure Only (Routine) - Closed Specialty Diagnoses / Procedures Referred By Contac t Referred To Contact XR IMAGING Diagnoses Acute pain of right knee Procedures XR KNEE GENERAL 4V AP BOTH/PA BOTH/LAT/MERC RIGHT RADIOLOGIC EXAM KNEE COMPLETE 4/MORE VIEWS Farheen Almendarez APRN.CNP [address] [place] [address] Xr Imaging Referral ID Status Reason Start Date Expiration Date V isits Requested Visits Authorized [id number] Closed Auto-Generate d Referral 08/31/2021 09/30/2022 1 1 [facility] for referral (narrative)* Diagnostic Procedure Only (Routine) - Closed Specialty Diagnoses / Procedures Referred By Contac t Referred To Contact XR IMAGING Diagnoses Coccyx pain Procedures XR SACRUM/COCCYX 3V AP/LAT RADEX SACRUM & COCCYX MINIMUM 2 VIEWS Farheen Almendarez APRN.FRUIT HARVESTER [address] [place] [address] Xr Imaging Referral ID Status Reason Start Date Expiration Date V isits Requested Visits Authorized [id number] Closed Auto-Generate d Referral 11/22/2021 12/22/2022 1 1 [facility] for referral (narrative)* Diagnostic Procedure Only (Routine) - Closed Specialty Diagnoses / Procedures Referred By Contac t Referred To Contact XR IMAGING Diagnoses Coccyx pain Procedures XR SACRUM/COCCYX 3V AP/LAT RADEX SACRUM & COCCYX MINIMUM 2 VIEWS Farheen Almendarez APRN.FR[employer] HAR[employer]STER [address] [place] [address] Xr Imaging Referral ID Status Reason Start Date Expiration Date V isits Requested Visits Authorized [id number] Closed Auto-Generate d Referral 11/22/2021 12/22/2022 1 1 * Consult, Test, Treat (Routine) - Authorized Specialty Diagnoses / Procedures Referred By Contac t Referred To Contact Diagnoses Chronic ROYER (middle ear effusion), left Hearing loss of left ear, unspecified hearing loss type Procedures CONSULT TO ENT OFFICE/OUTPATIENT [facility] MDM 60-74 MINUTES Farheen Almendarez WATCH REPAIR TECHNICIAN.FRUIT HARVESTER [address] [place] [address] Rj [facility] [address] [place] [address] Referral ID Status Reason Start Date Expiration Date Visits Requested Visits Authorized [id number] Authorized PCP Requested Referral 11/22/2021 11/22/2022 1 1 [facility] for referral (narrative)* Outpatient Procedure (Routine) - Closed Specialty Diagnoses / Procedures Referred By Haley t Referred To Contact [facility] Diagnoses Primary hypertension Procedures ECG COMPLETE ECG ROUTINE ECG W/LEAST 12 LDS W/I&R Farheen Almendarez APRN.CNP [address] [place] [address] [facility] [place] [address] [place] [address] Referral ID Status Reason Start Date Expiration Date V isits Requested Visits Authorized [id number] Closed Auto-Generate d Referral 03/26/2022 03/25/2023 1 1 [facility] for referral (narrative)* Diagnostic Procedure Only (Routine) - Authorized Specialty Diagnoses / Procedures Referred By Haley terry Referred To Contact BR IMAGING Diagnoses Mass overlapping multiple quadrants of right breast Procedures US BREAST LTD RIGHT US BREAST UNI REAL TIME WITH IMAGE LIMITED Gela Polo MD [address] [place] [address] [facility] [address] [place] [address] Referral ID Status Reason Start Date Expiration Date Visits Requested Visits Authorized [id number] Authorized Auto-Generat ed Referral 06/04/2023 07/03/2024 1 1 * Diagnostic Procedure Only (Routine) - Authorized Specialty Diagnoses / Procedures Referred By Haley terry Referred To Contact BR IMAGING Diagnoses Mass overlapping multiple quadrants of right breast Procedures FRED DIAGNOSTIC BILATERAL DIAGNOSTIC MAMMOGRAPHY COMPUTER-AIDED DETCJ BI Gela Polo MD [address] [place] [address] [facility] [address] [place] [address] Referral ID Status Reason Start Date Expiration Date Visits Requested Visits Authorized [id number] Authorized Auto-Generat ed Referral 06/04/2023 07/03/2024 1 1 [facility] for referral (narrative)* Diagnostic Procedure Only (Routine) - Pending Review Specialty Diagnoses / Procedures Referred By Contac t Referred To Contact US IMAGING Diagnoses Abnormal uterine bleeding (AUB) Procedures US FEMALE PELVIS TRANSABD LTD US PELVIC NONOBSTETRIC IMAGE DCMTN LIMITED/F/U Komal Booth MD [address] [place] [address] [place] [address] Referral ID Status Reason Start Date Expiration Date Visits Requested Visits Authorized [id number] Pending Review Auto-Generat ed Referral 06/20/2023 07/19/2024 1 1 * Diagnostic Procedure Only (Routine) - Authorized Specialty Diagnoses / Procedures Referred By Contac t Referred To Contact US IMAGING Diagnoses Abnormal uterine bleeding (AUB) Procedures US FEMALE PELVIS TRANSVAG US TRANSVAGINAL Komal Booth MD [address] [place] [address] [place] [address] Referral ID Status Reason Start Date Expiration Date Visits Requested Visits Authorized [id number] Authorized Auto-Generat ed Referral 06/20/2023 07/19/2024 1 1 * Outpatient Procedure (Routine) - Pending Review Specialty Diagnoses / Procedures Referred By Contac t Referred To Contact [facility] Diagnoses Abnormal uterine bleeding (AUB) Procedures ENDOMETRIAL BIOPSY ENDOMETRIAL BX W/WO ENDOCERVIX BX W/O DILAT SPX Komal Booth MD [address] [place] [address] [address] Referral ID Status Reason Start Date Expiration Date Visits Requested Visits Authorized [id number] Pending Review Auto-Generat ed Referral 06/20/2023 06/19/2024 1 1 T [facility] for referral (narrative)* Diagnostic Procedure Only (Routine) - Closed Specialty Diagnoses / Procedures Referred By Haley terry Referred To Contact US IMAGING Diagnoses Abnormal uterine bleeding (AUB) Procedures US FEMALE PELVIS TRANSVAG US TRANSVAGINAL Komal Booth MD [address] [place] [address] [place] [address] Referral ID Status Reason Start Date Expiration Date V isits Requested Visits Authorized [id number] Closed Auto-Generate d Referral 06/20/2023 07/19/2024 1 1 T [facility] for referral (narrative)* Outpatient Procedure (Routine) - Authorized Specialty Diagnoses / Procedures Referred By Haley terry Referred To Contact [facility] Diagnoses Encounter for IUD insertion Encounter for removal of intrauterine contraceptive device Procedures INSERT INTRAUTERINE DEVICE LEVONORGESTREL IU 52MG 5 YR INSERT INTRAUTERINE DEVICE REMOVE INTRAUTERINE DEVICE Komal Booth MD [address] [place] [address] [facility] [address] [place] [address] Referral ID Status Reason Start Date Expiration Date Visits Requested Visits Authorized [id number] Authorized Auto-Generat ed Referral 07/16/2023 03/25/2024 2 2 T [facility] for visit Narrative* Diagnostic Procedure Only (Routine) - Closed Specialty Diagnoses / Procedures Referred By Haley trery Referred To Contact XR IMAGING Diagnoses Acute pain of right knee Procedures XR KNEE GENERAL 4V AP BOTH/PA BOTH/LAT/MERC RIGHT RADIOLOGIC EXAM KNEE COMPLETE 4/MORE VIEWS Farheen Almendarez, WATCH REPAIR TECHNICIAN.FRUIT HARVESTER [address] [place] [address] Xr Imaging Referral ID Status Reason Start Date Expiration Date V isits Requested Visits Authorized [id number] Closed Auto-Generate d Referral 08/31/2021 09/30/2022 1 1 [facility] for visit Narrative* Diagnostic Procedure Only (Routine) - Closed Specialty Diagnoses / Procedures Referred By Contac t Referred To Contact XR IMAGING Diagnoses Coccyx pain Procedures XR SACRUM/COCCYX 3V AP/LAT RADEX SACRUM & COCCYX MINIMUM 2 VIEWS Farheen Almendarez, WATCH REPAIR TECHNICIAN.[employer] [place] [address] Xr Imaging Referral ID Status Reason Start Date Expiration Date V isits Requested Visits Authorized [id number] Closed Auto-Generate d Referral 11/22/2021 12/22/2022 1 1 [facility] for visit Narrative* Diagnostic Procedure Only (Routine) - Closed Specialty Diagnoses / Procedures Referred By Contac t Referred To Contact US IMAGING Diagnoses Abnormal uterine bleeding (AUB) Procedures US FEMALE PELVIS TRANSVAG US TRANSVAGINAL Komal Booth MD [address] [place] [address] [place] [address] Referral ID Status Reason Start Date Expiration Date V isits Requested Visits Authorized [id number] Closed Auto-Generate d Referral 06/20/2023 07/19/2024 1 1 [facility] for visit Narrative* Diagnostic Procedure Only (Routine) - Closed Specialty Diagnoses / Procedures Referred By Contac t Referred To Contact XR IMAGING Diagnoses 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 pain Chronic bilateral low back pain with right-sided sciatica Procedures XR LUMBAR PARS DEFECT 4V AP/LAT/BOTH OBL RADEX SPINE LUMBOSACRAL MINIMUM 4 VIEWS Farheen Almendarez, WATCH REPAIR TECHNICIAN.[employer] [place] [address] [place] [address] Referral ID Status Reason Start Date Expiration Date V isits Requested Visits Authorized [id number] Closed Auto-Generate d Referral 03/26/2024 03/25/2025 1 1 [facility] for visit Narrative* MRI/CT (Routine) - Closed Specialty Diagnoses / Procedures [facility] To [facility] MR IM[facility] Diagnoses Chronic midline low back pain without sciatica Spondylosis without myelopathy or radiculopathy, lumbar region Procedures MRI LUMBAR SPINE WO IVCON MRI SPINAL CANAL LUMBAR W/O CONTRAST MATERIAL Farheen Almendarez, WATCH REPAIR TECHNICIAN.[employer] [address] [place] [address] Phone: tel: fax: [place] [address] Referral ID Status Reason Start Date Expiration Date V isits Requested Visits Authorized [id number] Closed Auto-Generate d Referral 08/19/2024 03/25/2025 1 1 [facility] for visit Narrative* Diagnostic Procedure Only (Routine) - Closed Specialty Diagnoses / Procedures [facility] To Contact XR IMAGING Diagnoses Acquired deformity of skull Procedures XR SKULL 2V AP/LAT RADIOLOGIC EXAMINATION SKULL 4< VIEWS Farheen Almendarez, WATCH REPAIR TECHNICIAN.[employer] [place] [address] Phone: tel: fax: [place] [address] Referral ID Status Reason Start Date Expiration Date V isits Requested Visits Authorized [id number] Closed Auto-Generate d Referral 09/02/2024 10/02/2025 1 1 [facility] for visit Narrative* Diagnostic Procedure Only (Routine) - Closed Specialty Diagnoses / Procedures Referred By Contac t Referred To Contact XR IMAGING Diagnoses 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 pain Procedures XR LUMBAR LIMITED 2V FLEX/EXT RADEX SPINE LUMBOSACRAL 2/3 VIEWS Fredo Ames MD [address] [place] [address] Phone: tel: fax: [place] [address] Referral ID Status Reason Start Date Expiration Date V isits Requested Visits Authorized [id number] Closed Auto-Generate d Referral 03/26/2024 03/25/2025 1 1 [facility] for visit Narrative* Diagnostic Procedure Only (Routine) - Closed Specialty Diagnoses / Procedures [facility] To Contact BR IMAGING Diagnoses Nipple discharge Procedures US BREAST LTD LEFT US BREAST UNI REAL TIME WITH IMAGE LIMITED Komal Booth MD [address] [place] [address] Phone: tel: fax:[phone] [facility] [address] [place] [address] Referral ID Status Reason Start Date Expiration Date V isits Requested Visits Authorized [id number] Closed Auto-Generate d Referral 09/23/2024 03/25/2025 1 1 [facility] for visit Narrative* Consult, Test, Treat (Routine) - Closed Specialty Diagnoses / Procedures [facility] To Contact BR IMAGING Diagnoses Abnormal mammogram Procedures FRED DIAGNOSTIC LEFT DIAGNOSTIC MAMMOGRAPHY COMPUTER-AIDED DETCJ UNI Gela Polo MD [address] [place] [address] Phone: tel: fax:[phone] [facility] [address] [place] [phone] Referral ID Status Reason Start Date Expiration Date V isits Requested Visits Authorized [id number] Closed Auto-Generate d Referral 09/23/2024 03/25/2025 1 1 [facility] for visit Narrative* Diagnostic Procedure Only (Routine) - Closed Specialty Diagnoses / Procedures [facility]erred To Contact [facility] Diagnoses Dysmenorrhea Menorrhagia with regular cycle Procedures PELVIC US WHI US PELVIC NONOBSTETRIC REAL-TIME IMAGE COMPLETE Komal Booth MD [address] [place] [address] Phone: tel: fax:[phone] [facility] [address] [place] [id number] Referral ID Status Reason Start Date Expiration Date V isits Requested Visits Authorized [id number] Closed Auto-Generate d Referral 08/05/2024 08/05/2025 1 1 [facility] for visit Narrative* Diagnostic Procedure Only (Routine) - Closed Specialty Diagnoses / Procedures [facility] Referred To Contact MOLECULAR & FUNCTIONAL IMAGING Diagnoses Hyperparathyroidism (HCC) Procedures NM PARATHYROID W SPECT/CT PARATHYROID IMAGING W/TOMOGRAPHIC SPECT & CT Gonzalo Hernadez MD [address] [id number] Phone: tel: fax: Molecular Imaging [address] [place] [address] Phone: tel: Referral ID Status Reason Start Date Expiration Date V isits Requested Visits Authorized [id number] Closed Auto-Generate d Referral 10/31/2024 11/29/2025 [facility] Diagnostic Procedure Only (Routine) - Closed Specialty Diagnoses / Procedures Referred By Contross t Referred To Contact MOLECULAR & FUNCTIONAL IMAGING Diagnoses Hyperparathyroidism (HCC) Procedures NM PARATHYROID W SPECT/CT PARATHYROID IMAGING W/TOMOGRAPHIC SPECT & CT Gonzalo Hernadez MD [address] [place] [address] Phone: tel: fax: Molecular Imaging [address] [place] [address] Phone: tel: Referral ID Status Reason Start Date Expiration Date V isits Requested Visits Authorized [id number] Closed Auto-Generate d Referral 10/31/2024 11/29/2025 1 1 [facility] Summary Purpose Family History No Family History Records FoundNo Family History Records FoundNo Family History Records FoundNo Family History Records FoundNo Family History Records FoundNo Family History Records FoundNo Family History Records FoundNo Family History Records Found Advance Directives Documents on File Type Date Recorded Patient Registered Safety Engineer Expl anation Advance Directive(s) 03/14/2020 8:13 PM Advance Directive(s) 02/21/2018 11:43 PM Advance Directive(s) 01/06/2017 12:36 AM Documents on File Type Date Recorded Patient Registered Safety Engineer Expl anation Advance Directive(s) 03/14/2020 8:13 PM Advance Directive(s) 02/21/2018 11:43 PM Advance Directive(s) 01/06/2017 12:36 AM Reason for Referral Specialty Diagnoses / Procedures Referred By Contac t Referred To Contact Orthopedics / [facility] Department Diagnoses Acute pain of right knee Effusion of right knee Procedures CONSULT TO ORTHOPAEDICS OFFICE/OUTPATIENT NEW HIGH MDM 60-74 MINUTES Farheen Almendarez, WATCH REPAIR TECHNICIAN.[employer] [place] [address] Pop Wilson MD [address] [place] [address] Referral ID Status Reason Start Date Expiration Date Visits Requested Visits Authorized [id number] Authorized PCP Requested Referral 10/04/2021 10/04/2022 1 1 Specialty Diagnoses / Procedures Referred By Contac t Referred To Contact US IMAGING Diagnoses Epigastric pain Nausea Procedures US ABD RT UPPER QUADRANT US ABDOMINAL REAL TIME W/IMAGE LIMITED Farheen Almendarez APRN.[employer] [place] [address] Us Imaging Referral ID Status Reason Start Date Expiration Date Visits Requested Visits Authorized [id number] Pending Review Auto-Generat ed Referral 10/04/2021 11/03/2022 1 1 Specialty Diagnoses / Procedures Referred By Contact Referred To Contact Endocrinology / [facility] Department Diagnoses Insulin resistance PCOS (polycystic ovarian syndrome) Hypothyroidism, acquired Elevated blood pressure reading without diagnosis of hypertension Procedures CONSULT TO ENDOCRINOLOGY OFFICE/OUTPATIENT NEW HIGH MDM 60-74 MINUTES Farheen Almendarez APRN.[employer] [place] [address] Candi Sahu MD [address] [place] [address] Referral ID Status Reason Start Date Expiration Date Visits Requested Visits Authorized [id number] Authorized PCP Requested Referral 2 02/06/2023 1 1 Specialty Diagnoses / Procedures Referred By Contac t Referred To Contact Diagnoses PCOS (polycystic ovarian syndrome) Hypothyroidism, acquired Procedures ENDOCRINE MEDICAL WEIGHT MANAGEMENT OFFICE/OUTPATIENT NEW HIGH MDM 60-74 MINUTES Candi Sahu MD [address] [place] [address] Referral ID Status Reason Start Date Expiration Date Visits Requested Visits Authorized [id number] Authorized PCP Requested Referral 2 02/07/2023 1 1 Specialty Diagnoses / Procedures Referred By Contac t Referred To Contact Diagnoses Class 3 obesity (HCC) BMI 50.0-59.9, adult (HCC) PCOS (polycystic ovarian syndrome) Insulin resistance Viviane Medina MD [address] [facility], [address] [place] [address] Referral ID Status Reason Start Date Expiration Date Visits Re quested Visits Authorized [id number] Closed 1 1 Specialty Diagnoses / Procedures Referred By Contac t Referred To Contact MR IMAGING Diagnoses New daily persistent headache Procedures MRI BRAIN WO IVCON MRI BRAIN BRAIN STEM W/O CONTRAST MATERIAL Farheen Almendarez, WATCH REPAIR TECHNICIAN.[employer] [place] [address] [place] [address] Referral ID Status Reason Start Date Expiration Date Visits Requested Visits Authorized [id number] New Request Auto-Generat ed Referral 4 03/09/2025 1 1 Specialty Diagnoses / Procedures Referred By Contac t Referred To Contact Endocrinology Diagnoses Parathyroid dysfunction (HCC) Procedures CONSULT TO ENDOCRINOLOGY OFFICE/OUTPATIENT NEW HIGH MDM 60 MINUTES Farheen Almendarez, WATCH REPAIR TECHNICIAN.[employer] HAR[address] [place] [address] Bertha Churchill MD [address] [address] Referral ID Status Reason Start Date Expiration Date Visits Requested Visits Authorized [id number] Authorized PCP Requested Referral 4 02/17/2025 1 1 Specialty Diagnoses / Procedures Referred By Contac t Referred To Contact [facility] Diagnoses 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 pain Chronic bilateral low back pain with right-sided sciatica Procedures CONSULT TO PHYSICAL THERAPY PHYSICAL THERAPY EVALUATION HIGH COMPLEX 45 MINS Farheen Almendarez, WATCH REPAIR TECHNICIAN.[employer] HAR[address]STER [address] [place] [address] [facility] [address] [place] [phone] Referral ID Status Reason Start Date Expiration Date Visits Requested Visits Authorized [id number] Pending Review Auto-Generat ed Referral 04/07/2024 04/07/2025 1 1 Specialty Diagnoses / Procedures Referred By Haley t Referred To Contact XR IMAGING Diagnoses 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 pain Chronic bilateral low back pain with right-sided sciatica Procedures XR LUMBAR PARS DEFECT 4V AP/LAT/BOTH OBL RADEX SPINE LUMBOSACRAL MINIMUM 4 VIEWS Farheen Almendarez, VÍCTOR.[employer] HARVESTER [address] [place] [address] [place] [address] Referral ID Status Reason Start Date Expiration Date Visits Requested Visits Authorized [id number] New Request Auto-Generat ed Referral 04/07/2024 05/07/2025 1 1 Health Concerns Infection Onset Date Last Indicated Resolved Time COVID-19 Confirmed 06/11/2023 06/11/2023 Additional Source Comments INFORMATION SOURCE (unrecogn ized section and content) DATE CREATED AUTHOR 01/08/2018 [facility] DATE CREATED AUTHOR AUTHOR'S ORGANIZ ATION 06/23/2018 [facility] Center DATE CREATED AUTHOR AUTHOR'S ORGANIZ ATION 04/14/2020 [facility] DATE CREATED AUTHOR AUTHOR'S ORGANIZ ATION 06/20/2020 [facility] DATE CREATED AUTHOR AUTHOR'S ORGANIZ ATION 11/10/2024 [facility] Center DATE CREATED AUTHOR AUTHOR'S ORGANIZ ATION 11/19/2024 [facility] DATE CREATED AUTHOR AUTHOR'S ORGANIZ ATION 11/21/2024 [facility] DATE CREATED AUTHOR AUTHOR'S ORGANIZ ATION 11/25/2024 [facility] Source Comments (unrecognize d section and content) In the event this informatio n is protected by the Federal Confidentiality of Alcohol and Drug Abuse Patient Records regulations: The Federal rules restrict any use of the information to criminally investigate or prosecute any alcohol or drug abuse patient.[facility] the event this information is protected by the Federal Confidentiality of Alcohol and Drug Abuse Patient Records regulations: The Federal rules restrict any use of the information to criminally investigate or prosecute any alcohol or drug abuse patient.[facility] the event this information is protected by the Federal Confidentiality of Alcohol and Drug Abuse Patient Records regulations: The Federal rules restrict any use of the information to criminally investigate or prosecute any alcohol or drug abuse patient.[facility] Center[facility] the event this information is protected by the Federal Confidentiality of Alcohol and Drug Abuse Patient Records regulations: The Federal rules restrict any use of the information to criminally investigate or prosecute any alcohol or drug abuse patient.[facility] CenterIn the event this information is protected by the Federal Confidentiality of Alcohol and Drug Abuse Patient Records regulations: The Federal rules restrict any use of the information to criminally investigate or prosecute any alcohol or drug abuse patient.[facility] CenterIn the event this information is protected by the Federal Confidentiality of Alcohol and Drug Abuse Patient Records regulations: The Federal rules restrict any use of the information to criminally investigate or prosecute any alcohol or drug abuse patient.[facility] Center[facility] the event this information is protected by the Federal Confidentiality of Alcohol and Drug Abuse Patient Records regulations: The Federal rules restrict any use of the information to criminally investigate or prosecute any alcohol or drug abuse patient.[facility] Center[facility] the event this information is protected by the Federal Confidentiality of Alcohol and Drug Abuse Patient Records regulations: The Federal rules restrict any use of the information to criminally investigate or prosecute any alcohol or drug abuse patient.[facility] CenterIn the event this information is protected by the Federal Confidentiality of Alcohol and Drug Abuse Patient Records regulations: The Federal rules restrict any use of the information to criminally investigate or prosecute any alcohol or drug abuse patient.[facility] CenterIn the event this information is protected by the Federal Confidentiality of Alcohol and Drug Abuse Patient Records regulations: The Federal rules restrict any use of the information to criminally investigate or prosecute any alcohol or drug abuse patient.[facility] CenterIn the event this information is protected by the Federal Confidentiality of Alcohol and Drug Abuse Patient Records regulations: The Federal rules restrict any use of the information to criminally investigate or prosecute any alcohol or drug abuse patient.[facility] CenterIn the event this information is protected by the Federal Confidentiality of Alcohol and Drug Abuse Patient Records regulations: The Federal rules restrict any use of the information to criminally investigate or prosecute any alcohol or drug abuse patient.[facility] CenterIn the event this information is protected by the Federal Confidentiality of Alcohol and Drug Abuse Patient Records regulations: The Federal rules restrict any use of the information to criminally investigate or prosecute any alcohol or drug abuse patient.[facility] CenterIn the event this information is protected by the Federal Confidentiality of Alcohol and Drug Abuse Patient Records regulations: The Federal rules restrict any use of the information to criminally investigate or prosecute any alcohol or drug abuse patient.[facility] CenterIn the event this information is protected by the Federal Confidentiality of Alcohol and Drug Abuse Patient Records regulations: The Federal rules restrict any use of the information to criminally investigate or prosecute any alcohol or drug abuse patient.[facility] CenterIn the event this information is protected by the Federal Confidentiality of Alcohol and Drug Abuse Patient Records regulations: The Federal rules restrict any use of the information to criminally investigate or prosecute any alcohol or drug abuse patient.[facility] CenterIn the event this information is protected by the Federal Confidentiality of Alcohol and Drug Abuse Patient Records regulations: The Federal rules restrict any use of the information to criminally investigate or prosecute any alcohol or drug abuse patient.[facility] CenterIn the event this information is protected by the Federal Confidentiality of Alcohol and Drug Abuse Patient Records regulations: The Federal rules restrict any use of the information to criminally investigate or prosecute any alcohol or drug abuse patient.[facility] CenterIn the event this information is protected by the Federal Confidentiality of Alcohol and Drug Abuse Patient Records regulations: The Federal rules restrict any use of the information to criminally investigate or prosecute any alcohol or drug abuse patient.[facility] CenterIn the event this information is protected by the Federal Confidentiality of Alcohol and Drug Abuse Patient Records regulations: The Federal rules restrict any use of the information to criminally investigate or prosecute any alcohol or drug abuse patient.[facility] CenterIn the event this information is protected by the Federal Confidentiality of Alcohol and Drug Abuse Patient Records regulations: The Federal rules restrict any use of the information to criminally investigate or prosecute any alcohol or drug abuse patient.[facility] CenterIn the event this information is protected by the Federal Confidentiality of Alcohol and Drug Abuse Patient Records regulations: The Federal rules restrict any use of the information to criminally investigate or prosecute any alcohol or drug abuse patient.[facility] CenterIn the event this information is protected by the Federal Confidentiality of Alcohol and Drug Abuse Patient Records regulations: The Federal rules restrict any use of the information to criminally investigate or prosecute any alcohol or drug abuse patient.[facility] CenterIn the event this information is protected by the Federal Confidentiality of Alcohol and Drug Abuse Patient Records regulations: The Federal rules restrict any use of the information to criminally investigate or prosecute any alcohol or drug abuse patient.[facility] CenterIn the event this information is protected by the Federal Confidentiality of Alcohol and Drug Abuse Patient Records regulations: The Federal rules restrict any use of the information to criminally investigate or prosecute any alcohol or drug abuse patient.[facility] CenterIn the event this information is protected by the Federal Confidentiality of Alcohol and Drug Abuse Patient Records regulations: The Federal rules restrict any use of the information to criminally investigate or prosecute any alcohol or drug abuse patient.[facility] CenterIn the event this information is protected by the Federal Confidentiality of Alcohol and Drug Abuse Patient Records regulations: The Federal rules restrict any use of the information to criminally investigate or prosecute any alcohol or drug abuse patient.[facility] CenterIn the event this information is protected by the Federal Confidentiality of Alcohol and Drug Abuse Patient Records regulations: The Federal rules restrict any use of the information to criminally investigate or prosecute any alcohol or drug abuse patient.[facility] CenterIn the event this information is protected by the Federal Confidentiality of Alcohol and Drug Abuse Patient Records regulations: The Federal rules restrict any use of the information to criminally investigate or prosecute any alcohol or drug abuse patient.[facility] CenterIn the event this information is protected by the Federal Confidentiality of Alcohol and Drug Abuse Patient Records regulations: The Federal rules restrict any use of the information to criminally investigate or prosecute any alcohol or drug abuse patient.[facility] CenterIn the event this information is protected by the Federal Confidentiality of Alcohol and Drug Abuse Patient Records regulations: The Federal rules restrict any use of the information to criminally investigate or prosecute any alcohol or drug abuse patient.[facility] CenterIn the event this information is protected by the Federal Confidentiality of Alcohol and Drug Abuse Patient Records regulations: The Federal rules restrict any use of the information to criminally investigate or prosecute any alcohol or drug abuse patient.[facility] CenterIn the event this information is protected by the Federal Confidentiality of Alcohol and Drug Abuse Patient Records regulations: The Federal rules restrict any use of the information to criminally investigate or prosecute any alcohol or drug abuse patient.[facility] CenterIn the event this information is protected by the Federal Confidentiality of Alcohol and Drug Abuse Patient Records regulations: The Federal rules restrict any use of the information to criminally investigate or prosecute any alcohol or drug abuse patient.[facility] CenterIn the event this information is protected by the Federal Confidentiality of Alcohol and Drug Abuse Patient Records regulations: The Federal rules restrict any use of the information to criminally investigate or prosecute any alcohol or drug abuse patient.[facility] CenterIn the event this information is protected by the Federal Confidentiality of Alcohol and Drug Abuse Patient Records regulations: The Federal rules restrict any use of the information to criminally investigate or prosecute any alcohol or drug abuse patient.[facility] CenterIn the event this information is protected by the Federal Confidentiality of Alcohol and Drug Abuse Patient Records regulations: The Federal rules restrict any use of the information to criminally investigate or prosecute any alcohol or drug abuse patient.[facility] CenterIn the event this information is protected by the Federal Confidentiality of Alcohol and Drug Abuse Patient Records regulations: The Federal rules restrict any use of the information to criminally investigate or prosecute any alcohol or drug abuse patient.[facility] CenterIn the event this information is protected by the Federal Confidentiality of Alcohol and Drug Abuse Patient Records regulations: The Federal rules restrict any use of the information to criminally investigate or prosecute any alcohol or drug abuse patient.[facility] CenterIn the event this information is protected by the Federal Confidentiality of Alcohol and Drug Abuse Patient Records regulations: The Federal rules restrict any use of the information to criminally investigate or prosecute any alcohol or drug abuse patient.[facility] CenterIn the event this information is protected by the Federal Confidentiality of Alcohol and Drug Abuse Patient Records regulations: The Federal rules restrict any use of the information to criminally investigate or prosecute any alcohol or drug abuse patient.[facility] CenterIn the event this information is protected by the Federal Confidentiality of Alcohol and Drug Abuse Patient Records regulations: The Federal rules restrict any use of the information to criminally investigate or prosecute any alcohol or drug abuse patient.[facility] CenterIn the event this information is protected by the Federal Confidentiality of Alcohol and Drug Abuse Patient Records regulations: The Federal rules restrict any use of the information to criminally investigate or prosecute any alcohol or drug abuse patient.[facility] CenterIn the event this information is protected by the Federal Confidentiality of Alcohol and Drug Abuse Patient Records regulations: The Federal rules restrict any use of the information to criminally investigate or prosecute any alcohol or drug abuse patient.[facility] CenterIn the event this information is protected by the Federal Confidentiality of Alcohol and Drug Abuse Patient Records regulations: The Federal rules restrict any use of the information to criminally investigate or prosecute any alcohol or drug abuse patient.[facility] CenterIn the event this information is protected by the Federal Confidentiality of Alcohol and Drug Abuse Patient Records regulations: The Federal rules restrict any use of the information to criminally investigate or prosecute any alcohol or drug abuse patient.[facility] CenterIn the event this information is protected by the Federal Confidentiality of Alcohol and Drug Abuse Patient Records regulations: The Federal rules restrict any use of the information to criminally investigate or prosecute any alcohol or drug abuse patient.[facility] CenterIn the event this information is protected by the Federal Confidentiality of Alcohol and Drug Abuse Patient Records regulations: The Federal rules restrict any use of the information to criminally investigate or prosecute any alcohol or drug abuse patient.[facility] the event this information is protected by the Federal Confidentiality of Alcohol and Drug Abuse Patient Records regulations: The Federal rules restrict any use of the information to criminally investigate or prosecute any alcohol or drug abuse patient.[facility] CenterIn the event this information is protected by the Federal Confidentiality of Alcohol and Drug Abuse Patient Records regulations: The Federal rules restrict any use of the information to criminally investigate or prosecute any alcohol or drug abuse patient.[facility] CenterIn the event this information is protected by the Federal Confidentiality of Alcohol and Drug Abuse Patient Records regulations: The Federal rules restrict any use of the information to criminally investigate or prosecute any alcohol or drug abuse patient.[facility] the event this information is protected by the Federal Confidentiality of Alcohol and Drug Abuse Patient Records regulations: The Federal rules restrict any use of the information to criminally investigate or prosecute any alcohol or drug abuse patient.[facility] CenterIn the event this information is protected by the Federal Confidentiality of Alcohol and Drug Abuse Patient Records regulations: The Federal rules restrict any use of the information to criminally investigate or prosecute any alcohol or drug abuse patient.[facility] CenterIn the event this information is protected by the Federal Confidentiality of Alcohol and Drug Abuse Patient Records regulations: The Federal rules restrict any use of the information to criminally investigate or prosecute any alcohol or drug abuse patient.[facility] CenterIn the event this information is protected by the Federal Confidentiality of Alcohol and Drug Abuse Patient Records regulations: The Federal rules restrict any use of the information to criminally investigate or prosecute any alcohol or drug abuse patient.[facility] CenterIn the event this information is protected by the Federal Confidentiality of Alcohol and Drug Abuse Patient Records regulations: The Federal rules restrict any use of the information to criminally investigate or prosecute any alcohol or drug abuse patient.[facility] CenterIn the event this information is protected by the Federal Confidentiality of Alcohol and Drug Abuse Patient Records regulations: The Federal rules restrict any use of the information to criminally investigate or prosecute any alcohol or drug abuse patient.[facility] CenterIn the event this information is protected by the Federal Confidentiality of Alcohol and Drug Abuse Patient Records regulations: The Federal rules restrict any use of the information to criminally investigate or prosecute any alcohol or drug abuse patient.[facility] CenterIn the event this information is protected by the Federal Confidentiality of Alcohol and Drug Abuse Patient Records regulations: The Federal rules restrict any use of the information to criminally investigate or prosecute any alcohol or drug abuse patient.[facility] CenterIn the event this information is protected by the Federal Confidentiality of Alcohol and Drug Abuse Patient Records regulations: The Federal rules restrict any use of the information to criminally investigate or prosecute any alcohol or drug abuse patient.[facility] CenterIn the event this information is protected by the Federal Confidentiality of Alcohol and Drug Abuse Patient Records regulations: The Federal rules restrict any use of the information to criminally investigate or prosecute any alcohol or drug abuse patient.[facility] CenterIn the event this information is protected by the Federal Confidentiality of Alcohol and Drug Abuse Patient Records regulations: The Federal rules restrict any use of the information to criminally investigate or prosecute any alcohol or drug abuse patient.[facility] CenterIn the event this information is protected by the Federal Confidentiality of Alcohol and Drug Abuse Patient Records regulations: The Federal rules restrict any use of the information to criminally investigate or prosecute any alcohol or drug abuse patient.[facility] CenterIn the event this information is protected by the Federal Confidentiality of Alcohol and Drug Abuse Patient Records regulations: The Federal rules restrict any use of the information to criminally investigate or prosecute any alcohol or drug abuse patient.[facility] CenterIn the event this information is protected by the Federal Confidentiality of Alcohol and Drug Abuse Patient Records regulations: The Federal rules restrict any use of the information to criminally investigate or prosecute any alcohol or drug abuse patient.[facility] CenterIn the event this information is protected by the Federal Confidentiality of Alcohol and Drug Abuse Patient Records regulations: The Federal rules restrict any use of the information to criminally investigate or prosecute any alcohol or drug abuse patient.[facility] CenterIn the event this information is protected by the Federal Confidentiality of Alcohol and Drug Abuse Patient Records regulations: The Federal rules restrict any use of the information to criminally investigate or prosecute any alcohol or drug abuse patient.[facility] CenterIn the event this information is protected by the Federal Confidentiality of Alcohol and Drug Abuse Patient Records regulations: The Federal rules restrict any use of the information to criminally investigate or prosecute any alcohol or drug abuse patient.[facility] CenterIn the event this information is protected by the Federal Confidentiality of Alcohol and Drug Abuse Patient Records regulations: The Federal rules restrict any use of the information to criminally investigate or prosecute any alcohol or drug abuse patient.[facility] CenterIn the event this information is protected by the Federal Confidentiality of Alcohol and Drug Abuse Patient Records regulations: The Federal rules restrict any use of the information to criminally investigate or prosecute any alcohol or drug abuse patient.[facility] CenterIn the event this information is protected by the Federal Confidentiality of Alcohol and Drug Abuse Patient Records regulations: The Federal rules restrict any use of the information to criminally investigate or prosecute any alcohol or drug abuse patient.[facility] CenterIn the event this information is protected by the Federal Confidentiality of Alcohol and Drug Abuse Patient Records regulations: The Federal rules restrict any use of the information to criminally investigate or prosecute any alcohol or drug abuse patient.[facility] CenterIn the event this information is protected by the Federal Confidentiality of Alcohol and Drug Abuse Patient Records regulations: The Federal rules restrict any use of the information to criminally investigate or prosecute any alcohol or drug abuse patient.[facility] CenterIn the event this information is protected by the Federal Confidentiality of Alcohol and Drug Abuse Patient Records regulations: The Federal rules restrict any use of the information to criminally investigate or prosecute any alcohol or drug abuse patient.[facility] CenterIn the event this information is protected by the Federal Confidentiality of Alcohol and Drug Abuse Patient Records regulations: The Federal rules restrict any use of the information to criminally investigate or prosecute any alcohol or drug abuse patient.[facility] CenterIn the event this information is protected by the Federal Confidentiality of Alcohol and Drug Abuse Patient Records regulations: The Federal rules restrict any use of the information to criminally investigate or prosecute any alcohol or drug abuse patient.[facility] CenterIn the event this information is protected by the Federal Confidentiality of Alcohol and Drug Abuse Patient Records regulations: The Federal rules restrict any use of the information to criminally investigate or prosecute any alcohol or drug abuse patient.[facility] CenterIn the event this information is protected by the Federal Confidentiality of Alcohol and Drug Abuse Patient Records regulations: The Federal rules restrict any use of the information to criminally investigate or prosecute any alcohol or drug abuse patient.[facility] CenterIn the event this information is protected by the Federal Confidentiality of Alcohol and Drug Abuse Patient Records regulations: The Federal rules restrict any use of the information to criminally investigate or prosecute any alcohol or drug abuse patient.[facility] CenterIn the event this information is protected by the Federal Confidentiality of Alcohol and Drug Abuse Patient Records regulations: The Federal rules restrict any use of the information to criminally investigate or prosecute any alcohol or drug abuse patient.[facility] CenterIn the event this information is protected by the Federal Confidentiality of Alcohol and Drug Abuse Patient Records regulations: The Federal rules restrict any use of the information to criminally investigate or prosecute any alcohol or drug abuse patient.[facility] CenterIn the event this information is protected by the Federal Confidentiality of Alcohol and Drug Abuse Patient Records regulations: The Federal rules restrict any use of the information to criminally investigate or prosecute any alcohol or drug abuse patient.[facility] CenterIn the event this information is protected by the Federal Confidentiality of Alcohol and Drug Abuse Patient Records regulations: The Federal rules restrict any use of the information to criminally investigate or prosecute any alcohol or drug abuse patient.[facility] CenterIn the event this information is protected by the Federal Confidentiality of Alcohol and Drug Abuse Patient Records regulations: The Federal rules restrict any use of the information to criminally investigate or prosecute any alcohol or drug abuse patient.[facility] CenterIn the event this information is protected by the Federal Confidentiality of Alcohol and Drug Abuse Patient Records regulations: The Federal rules restrict any use of the information to criminally investigate or prosecute any alcohol or drug abuse patient.[facility] CenterIn the event this information is protected by the Federal Confidentiality of Alcohol and Drug Abuse Patient Records regulations: The Federal rules restrict any use of the information to criminally investigate or prosecute any alcohol or drug abuse patient.[facility] CenterIn the event this information is protected by the Federal Confidentiality of Alcohol and Drug Abuse Patient Records regulations: The Federal rules restrict any use of the information to criminally investigate or prosecute any alcohol or drug abuse patient.[facility] CenterIn the event this information is protected by the Federal Confidentiality of Alcohol and Drug Abuse Patient Records regulations: The Federal rules restrict any use of the information to criminally investigate or prosecute any alcohol or drug abuse patient.[facility] CenterIn the event this information is protected by the Federal Confidentiality of Alcohol and Drug Abuse Patient Records regulations: The Federal rules restrict any use of the information to criminally investigate or prosecute any alcohol or drug abuse patient.[facility] CenterIn the event this information is protected by the Federal Confidentiality of Alcohol and Drug Abuse Patient Records regulations: The Federal rules restrict any use of the information to criminally investigate or prosecute any alcohol or drug abuse patient.[facility] CenterIn the event this information is protected by the Federal Confidentiality of Alcohol and Drug Abuse Patient Records regulations: The Federal rules restrict any use of the information to criminally investigate or prosecute any alcohol or drug abuse patient.[facility] CenterIn the event this information is protected by the Federal Confidentiality of Alcohol and Drug Abuse Patient Records regulations: The Federal rules restrict any use of the information to criminally investigate or prosecute any alcohol or drug abuse patient.[facility] CenterIn the event this information is protected by the Federal Confidentiality of Alcohol and Drug Abuse Patient Records regulations: The Federal rules restrict any use of the information to criminally investigate or prosecute any alcohol or drug abuse patient.[facility] CenterIn the event this information is protected by the Federal Confidentiality of Alcohol and Drug Abuse Patient Records regulations: The Federal rules restrict any use of the information to criminally investigate or prosecute any alcohol or drug abuse patient.[facility] CenterIn the event this information is protected by the Federal Confidentiality of Alcohol and Drug Abuse Patient Records regulations: The Federal rules restrict any use of the information to criminally investigate or prosecute any alcohol or drug abuse patient.[facility] CenterIn the event this information is protected by the Federal Confidentiality of Alcohol and Drug Abuse Patient Records regulations: The Federal rules restrict any use of the information to criminally investigate or prosecute any alcohol or drug abuse patient.[facility] CenterIn the event this information is protected by the Federal Confidentiality of Alcohol and Drug Abuse Patient Records regulations: The Federal rules restrict any use of the information to criminally investigate or prosecute any alcohol or drug abuse patient.[facility] CenterIn the event this information is protected by the Federal Confidentiality of Alcohol and Drug Abuse Patient Records regulations: The Federal rules restrict any use of the information to criminally investigate or prosecute any alcohol or drug abuse patient.[facility] the event this information is protected by the Federal Confidentiality of Alcohol and Drug Abuse Patient Records regulations: The Federal rules restrict any use of the information to criminally investigate or prosecute any alcohol or drug abuse patient.[facility] CenterIn the event this information is protected by the Federal Confidentiality of Alcohol and Drug Abuse Patient Records regulations: The Federal rules restrict any use of the information to criminally investigate or prosecute any alcohol or drug abuse patient.[facility] CenterIn the event this information is protected by the Federal Confidentiality of Alcohol and Drug Abuse Patient Records regulations: The Federal rules restrict any use of the information to criminally investigate or prosecute any alcohol or drug abuse patient.[facility]In the event this information is protected by the Federal Confidentiality of Alcohol and Drug Abuse Patient Records regulations: The Federal rules restrict any use of the information to criminally investigate or prosecute any alcohol or drug abuse patient.[facility] CenterIn the event this information is protected by the Federal Confidentiality of Alcohol and Drug Abuse Patient Records regulations: The Federal rules restrict any use of the information to criminally investigate or prosecute any alcohol or drug abuse patient.[facility]In the event this information is protected by the Federal Confidentiality of Alcohol and Drug Abuse Patient Records regulations: The Federal rules restrict any use of the information to criminally investigate or prosecute any alcohol or drug abuse patient.[facility] CenterIn the event this information is protected by the Federal Confidentiality of Alcohol and Drug Abuse Patient Records regulations: The Federal rules restrict any use of the information to criminally investigate or prosecute any alcohol or drug abuse patient.[facility] CenterIn the event this information is protected by the Federal Confidentiality of Alcohol and Drug Abuse Patient Records regulations: The Federal rules restrict any use of the information to criminally investigate or prosecute any alcohol or drug abuse patient.[facility] CenterIn the event this information is protected by the Federal Confidentiality of Alcohol and Drug Abuse Patient Records regulations: The Federal rules restrict any use of the information to criminally investigate or prosecute any alcohol or drug abuse patient.[facility] CenterIn the event this information is protected by the Federal Confidentiality of Alcohol and Drug Abuse Patient Records regulations: The Federal rules restrict any use of the information to criminally investigate or prosecute any alcohol or drug abuse patient.[facility] CenterIn the event this information is protected by the Federal Confidentiality of Alcohol and Drug Abuse Patient Records regulations: The Federal rules restrict any use of the information to criminally investigate or prosecute any alcohol or drug abuse patient.[facility] CenterIn the event this information is protected by the Federal Confidentiality of Alcohol and Drug Abuse Patient Records regulations: The Federal rules restrict any use of the information to criminally investigate or prosecute any alcohol or drug abuse patient.[facility] CenterIn the event this information is protected by the Federal Confidentiality of Alcohol and Drug Abuse Patient Records regulations: The Federal rules restrict any use of the information to criminally investigate or prosecute any alcohol or drug abuse patient.[facility] CenterIn the event this information is protected by the Federal Confidentiality of Alcohol and Drug Abuse Patient Records regulations: The Federal rules restrict any use of the information to criminally investigate or prosecute any alcohol or drug abuse patient.[facility] CenterIn the event this information is protected by the Federal Confidentiality of Alcohol and Drug Abuse Patient Records regulations: The Federal rules restrict any use of the information to criminally investigate or prosecute any alcohol or drug abuse patient.[facility] CenterIn the event this information is protected by the Federal Confidentiality of Alcohol and Drug Abuse Patient Records regulations: The Federal rules restrict any use of the information to criminally investigate or prosecute any alcohol or drug abuse patient.[facility] Care Teams (unrecognized sec tion and content) [employer] Knock Out Worker Relationship Specialty Start Date End Date Farheen Almendarez, WATCH REPAIR TECHNICIAN.[address] [place] [address] PCP - General Family Practice 02/02/20 [employer] Knock Out Worker Relationship Specialty Start Date End Date Farheen Almendarez, WATCH REPAIR TECHNICIAN.[address] [place] [address] PCP - General Family Practice 02/02/20 [employer] Knock Out Worker Relationship Specialty Start Date End Date Farheen Almendarez, WATCH REPAIR TECHNICIAN.[address] [place] [address] PCP - General Family Practice 02/02/20 [employer] Knock Out Worker Relationship Specialty Start Date End Date Farheen Almendarez, WATCH REPAIR TECHNICIAN.[employer] [address] [place] [address] PCP - General Family Practice 02/02/20 [employer] Knock Out Worker Relationship Specialty Start Date End Date Farhene Almendarez, WATCH REPAIR TECHNICIAN.[address] [place] [address] PCP - General Family Practice 02/02/20 [employer] Knock Out Worker Relationship Specialty Start Date End Date Farheen Almendarez, WATCH REPAIR TECHNICIAN.[employer] [address] [place] [address] PCP - General Family Practice 02/02/20 [employer] Knock Out Worker Relationship Specialty Start Date End Date Farheen Almendarez, WATCH REPAIR TECHNICIAN.[employer] [address] [place] [address] PCP - General Family Practice 02/02/20 [employer] Knock Out Worker Relationship Specialty Start Date End Date Farheen Almendarez, WATCH REPAIR TECHNICIAN.[employer] [address] [place] [address] PCP - General Family Practice 02/02/20 [employer] Knock Out Worker Relationship Specialty Start Date End Date Farheen Almendarez, WATCH REPAIR TECHNICIAN.[employer] [address] [place] [address] PCP - General Family Practice 02/02/20 [employer] Knock Out Worker Relationship Specialty Start Date End Date Farheen Almendarez, WATCH REPAIR TECHNICIAN.[employer] [address] [place] [address] PCP - General Family Practice 02/02/20 [employer] Knock Out Worker Relationship Specialty Start Date End Date Farheen Almendarez, WATCH REPAIR TECHNICIAN.[employer] [address] [place] [address] PCP - General Family Practice 02/02/20 [employer] Knock Out Worker Relationship Specialty Start Date End Date Farheen Almendarez, WATCH REPAIR TECHNICIAN.[employer] [address] [place] [address] PCP - General Family Medicine 02/02/20 [employer] Knock Out Worker Relationship Specialty Start Date End Date Farheen Almendarez, WATCH REPAIR TECHNICIAN.[facility] [facility] [address] [place] [address] PCP - General Family Medicine 02/02/20 Wax Ball Knock Out Worker Relationship Specialty Start Date End Date Trill, Farheen C, WATCH REPAIR TECHNICIAN.FRUIT [facility] [address] [place] [address] PCP - General Family Medicine 02/02/20 Wax Ball Knock Out Worker Relationship Specialty Start Date End Date Farheen Almendarez, WATCH REPAIR TECHNICIAN.FRUIT [facility] [address] [place] [address] PCP - General Family Medicine 02/02/20 Wax Ball Knock Out Worker Relationship Specialty Start Date End Date Farheen Almendarez, WATCH REPAIR TECHNICIAN.FRUIT [facility] [address] [place] [address] PCP - General Family Medicine 02/02/20 Wax Ball Knock Out Worker Relationship Specialty Start Date End Date Farheen Almendarez, WATCH REPAIR TECHNICIAN.FRUIT [facility] [address] [place] [address] PCP - General Family Medicine 02/02/20 Wax Ball Knock Out Worker Relationship Specialty Start Date End Date Farheen Almendarez, WATCH REPAIR TECHNICIAN.FRUIT [facility] [address] [place] [address] PCP - General Family Medicine 02/02/20 Wax Ball Knock Out Worker Relationship Specialty Start Date End Date Farheen Almendarez, WATCH REPAIR TECHNICIAN.FRUIT [facility] [address] [place] [address] PCP - General Family Medicine 02/02/20 Wax Ball Knock Out Worker Relationship Specialty Start Date End Date Farheen Almendarez, WATCH REPAIR TECHNICIAN.FRUIT [facility] [address] [place] [address] PCP - General Family Medicine 02/02/20 Wax Ball Knock Out Worker Relationship Specialty Start Date End Date Farheen Almendarez, WATCH REPAIR TECHNICIAN.FRUIT [facility] [address] [place] [address] PCP - General Family Medicine 02/02/20 Wax Ball Knock Out Worker Relationship Specialty Start Date End Date Farheen Almendarez, WATCH REPAIR TECHNICIAN.FRUIT [facility] [address] [place] [address] PCP - General Family Medicine 02/02/20 Wax Ball Knock Out Worker Relationship Specialty Start Date End Date Farheen Almendarez APRN.FRUIT [facility] [address] [place] [address] PCP - General Family Medicine 02/02/20 Wax Ball Knock Out Worker Relationship Specialty Start Date End Date Farheen Almendarez WATCH REPAIR TECHNICIAN.FRUIT [facility] [address] [place] [address] PCP - General Family Medicine 02/02/20 Wax Ball Knock Out Worker Relationship Specialty Start Date End Date Farheen Almendarez APRN.FRUIT [facility] [address] [place] [address] PCP - General Family Medicine 02/02/20 Wax Ball Knock Out Worker Relationship Specialty Start Date End Date Farheen Almendarez WATCH REPAIR TECHNICIAN.FRUIT [facility] [address] [place] [address] PCP - General Family Medicine 02/02/20 Wax Ball Knock Out Worker Relationship Specialty Start Date End Date Farheen Almendarez, WATCH REPAIR TECHNICIAN.FRUIT [facility] [address] [place] [address] PCP - General Family Medicine 02/02/20 Wax Ball Knock Out Worker Relationship Specialty Start Date End Date Farheen Almendarez, WATCH REPAIR TECHNICIAN.FRUIT [facility] [address] [place] [address] PCP - General Family Medicine 02/02/20 Wax Ball Knock Out Worker Relationship Specialty Start Date End Date Farheen Almendarez, WATCH REPAIR TECHNICIAN.FRUIT [facility] [address] [place] [address] PCP - General Family Medicine 02/02/20 Wax Ball Knock Out Worker Relationship Specialty Start Date End Date Farheen Almendarez APRN.FRUIT [facility] [address] [place] [address] PCP - General Family Medicine 02/02/20 Wax Ball Knock Out Worker Relationship Specialty Start Date End Date Farheen Almendarez WATCH REPAIR TECHNICIAN.FRUIT [facility] [address] [place] [address] PCP - General Family Medicine 02/02/20 Wax Ball Knock Out Worker Relationship Specialty Start Date End Date Farheen Almendarez WATCH REPAIR TECHNICIAN.FRUIT [facility] [address] [place] [address] PCP - General Family Medicine 02/02/20 Wax Ball Knock Out Worker Relationship Specialty Start Date End Date Farheen Almendarez WATCH REPAIR TECHNICIAN.FRUIT [facility] [address] [place] [address] PCP - General Family Medicine 02/02/20 Wax Ball Knock Out Worker Relationship Specialty Start Date End Date Farheen Almendarez APRN.FRUIT [facility] [address] [place] [address] PCP - General Family Medicine 02/02/20 Wax Ball Knock Out Worker Relationship Specialty Start Date End Date Farheen Almendarez WATCH REPAIR TECHNICIAN.FRUIT [facility] [address] [place] [address] PCP - General Family Medicine 02/02/20 Wax Ball Knock Out Worker Relationship Specialty Start Date End Date Farheen Almendarez WATCH REPAIR TECHNICIAN.FRUIT [facility] [address] [place] [address] PCP - General Family Medicine 02/02/20 Wax Ball Knock Out Worker Relationship Specialty Start Date End Date Farheen Almendarez WATCH REPAIR TECHNICIAN.FRUIT [facility] [address] [place] [address] PCP - General Family Medicine 02/02/20 Wax Ball Knock Out Worker Relationship Specialty Start Date End Date Farheen Almendarez APRN.FRUIT [facility] [address] [place] [address] PCP - General Family Medicine 02/02/20 Wax Ball Knock Out Worker Relationship Specialty Start Date End Date Farheen Almendarez WATCH REPAIR TECHNICIAN.FRUIT [facility] [address] [place] [address] PCP - General Family Medicine 02/02/20 Wax Ball Knock Out Worker Relationship Specialty Start Date End Date Farheen Almendarez WATCH REPAIR TECHNICIAN.FRUIT [facility] [address] [place] [address] PCP - General Family Medicine 02/02/20 Wax Ball Knock Out Worker Relationship Specialty Start Date End Date Farheen Almendarez WATCH REPAIR TECHNICIAN.FRUIT [facility] [address] [place] [address] PCP - General Family Medicine 02/02/20 Wax Ball Knock Out Worker Relationship Specialty Start Date End Date Farheen Almendarez WATCH REPAIR TECHNICIAN.FRUIT [facility] [address] [place] [address] PCP - General Family Medicine 02/02/20 Wax Ball Knock Out Worker Relationship Specialty Start Date End Date Farheen Almendarez WATCH REPAIR TECHNICIAN.FRUIT [facility] [address] [place] [address] PCP - General Family Medicine 02/02/20 Wax Ball Knock Out Worker Relationship Specialty Start Date End Date Farheen Almendarez WATCH REPAIR TECHNICIAN.FRUIT [facility] [address] [place] [address] PCP - General Family Medicine 02/02/20 Wax Ball Knock Out Worker Relationship Specialty Start Date End Date Farheen Almendarez WATCH REPAIR TECHNICIAN.FRUIT [facility] [address] [place] [address] PCP - General Family Medicine 02/02/20 Wax Ball Knock Out Worker Relationship Specialty Start Date End Date Farheen Almendarez WATCH REPAIR TECHNICIAN.FRUIT [facility] [address] [place] [address] PCP - General Family Medicine 02/02/20 Wax Ball Knock Out Worker Relationship Specialty Start Date End Date Farheen Almendarez WATCH REPAIR TECHNICIAN.FRUIT [facility] [address] [place] [address] PCP - General Family Medicine 02/02/20 Wax Ball Knock Out Worker Relationship Specialty Start Date End Date Farheen Almendarez WATCH REPAIR TECHNICIAN.FRUIT [facility] [address] [place] [address] PCP - General Family Medicine 02/02/20 Wax Ball Knock Out Worker Relationship Specialty Start Date End Date Farheen Almendarez, WATCH REPAIR TECHNICIAN.FRUIT [facility] [address] [place] [address] PCP - General Family Medicine 02/02/20 Wax Ball Knock Out Worker Relationship Specialty Start Date End Date Farheen Almendarez, WATCH REPAIR TECHNICIAN.FRUIT [facility] [address] [place] [address] PCP - General Family Medicine 02/02/20 Wax Ball Knock Out Worker Relationship Specialty Start Date End Date Farheen Almendarez, WATCH REPAIR TECHNICIAN.FRUIT [facility] [address] [place] [address] PCP - General Family Medicine 02/02/20 Wax Ball Knock Out Worker Relationship Specialty Start Date End Date Farheen Almendarez APRN.FRUIT [facility] [address] [place] [address] PCP - General Family Medicine 02/02/20 Wax Ball Knock Out Worker Relationship Specialty Start Date End Date Farheen Almendarez WATCH REPAIR TECHNICIAN.FRUIT [facility] [address] [place] [address] PCP - General Family Medicine 02/02/20 Wax Ball Knock Out Worker Relationship Specialty Start Date End Date Farheen Almendarez WATCH REPAIR TECHNICIAN.FRUIT [facility] [address] [place] [address] PCP - General Family Medicine 02/02/20 Wax Ball Knock Out Worker Relationship Specialty Start Date End Date Farheen Almendarez WATCH REPAIR TECHNICIAN.FRUIT [facility] [address] [place] [address] PCP - General Family Medicine 02/02/20 Wax Ball Knock Out Worker Relationship Specialty Start Date End Date Farheen Almendarez WATCH REPAIR TECHNICIAN.FRUIT [facility] [address] [place] [address] PCP - General Family Medicine 02/02/20 Wax Ball Knock Out Worker Relationship Specialty Start Date End Date Farheen Almendarez WATCH REPAIR TECHNICIAN.FRUIT [facility] [address] [place] [address] PCP - General Family Medicine 02/02/20 Wax Ball Knock Out Worker Relationship Specialty Start Date End Date Farheen Almendarez WATCH REPAIR TECHNICIAN.FRUIT [facility] [address] [place] [address] PCP - General Family Medicine 02/02/20 Wax Ball Knock Out Worker Relationship Specialty Start Date End Date Farheen Almendarez APRN.FRUIT [facility] [address] [place], [place] [id number] PCP - General Family Medicine 02/02/20 Wax Ball Knock Out Worker Relationship Specialty Start Date End Date Farheen Almendarez APRN.FRUIT [facility] [address] [place], [place] [id number] PCP - General Family Medicine 02/02/20 Wax Ball Knock Out Worker Relationship Specialty Start Date End Date Farheen Almendarez APRN.FRUIT [facility] [address] [place], [place] [id number] PCP - General Family Medicine 02/02/20 Wax Ball Knock Out Worker Relationship Specialty Start Date End Date Farheen Almendarez APRN.FRUIT [facility] [address] [place] [address] PCP - General Family Medicine 02/02/20 Reason for Visit (unrecogniz ed section and content) Reason Comments Physical Therapy Specialty Diagnoses / Procedures Referred By Haley terry Referred To Contact PHYSICAL THERAPY Diagnoses 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 covid neg fever chills gone sore throat and bilateral ear pain x 1 w ione. Reason Comments Knee Pain right knee x 2 weeks . unknown cause. thinks it might be from tripping over toys Reason Comments Refill Request Reason Comments Right Knee Pain Reason Comments Viral Syndrome Started yesterday, n ausea fever, body aches, pain in ear Reason Comments Anxiety Thyroid Problem Cough Productive cough , s inus congestion X 1 week. Went to urgent care. Just gave mucinex, no antibiotic. Was tested for covid and flu. Both negative. Reason Comments Consult Specialty Diagnoses / Procedures Referred By Contact Referred To Contact Endocrinology / [facility] Department Diagnoses Insulin resistance PCOS (polycystic ovarian syndrome) Hypothyroidism, acquired Elevated blood pressure reading without diagnosis of hypertension Procedures CONSULT TO ENDOCRINOLOGY OFFICE/OUTPATIENT [facility] 60-74 MINUTES Farheen Almendarez, VÍCTOR.FRUIT [facility] [address] [place] [address] Candi Sahu MD [address] [place] [address] Referral ID Status Reason Start Date Expiration Date V isits Requested Visits Authorized [id number] Closed PCP Requested Referral 02/06/2022 02/06/2023 1 1 Reason Comments Blood Pressure Check Reason Comments Lab Orders Reason Comments Medical Weight Management Reason Comments Medical Weight Management Wt loss Specialty Diagnoses / Procedures Referred By Haley t Referred To Contact Diagnoses PCOS (polycystic ovarian syndrome) Hypothyroidism, acquired Obesity, Class I, BMI 30-34.9 Procedures ENDOCRINOLOGY DIETITIAN VISIT (MNT) OFFICE/OUTPATIENT [facility] 60-74 MINUTES Viviane Medina MD [address] [place] [address] Referral ID Status Reason Start Date Expiration Date V isits Requested Visits Authorized [id number] Closed PCP Requested Referral 02/13/2022 02/13/2023 1 1 Reason Comments Medication Problem CONTRAVE 8-9mg ER [facility] canseco requested Reason Comments Hypertension Reason Comments Medical Weight Management Reason Comments Hypertension Reason Comments Blood Pressure Check Reason Comments Orders Reason Onset Date Comments Refill Request 01/30/2023 Reason Comments Results Labs Reason Comments Cough Productive cough x 2 weeks. Took covid test and it was negative. Runny and stuffy nose . Headache Reason Comments Breast Problem Right breast lump Reason Comments Fever Congestion, body ach es, headaches x 2 days. Reason Comments Yearly Exam With Mammogram Reason Comments Consult Weight management Reason Comments Endometrial Biopsy Specialty Diagnoses / Procedures Referred By Haley terry Referred To Contact [facility] Diagnoses Abnormal uterine bleeding (AUB) Procedures ENDOMETRIAL BIOPSY ENDOMETRIAL BX W/WO ENDOCERVIX BX W/O DILAT SPX Komal Booth MD [address] [place] [address] [address] Referral ID Status Reason Start Date Expiration Date V isits Requested Visits Authorized [id number] Closed Auto-Generate d Referral 07/11/2023 10/09/2023 1 1 Reason Comments Sore Throat X4 days, strep expos ure Reason Onset Date Comments Insertion Of IUD 08/01/2023 Specialty Diagnoses / Procedures Referred By Haley terry Referred To Contact [facility] Diagnoses Encounter for IUD insertion Encounter for removal of intrauterine contraceptive device Procedures INSERT INTRAUTERINE DEVICE LEVONORGESTREL IU 52MG 5 YR INSERT INTRAUTERINE DEVICE REMOVE INTRAUTERINE DEVICE Komal Booth MD [address] [place] [address] [address] Referral ID Status Reason Start Date Expiration Date Visits Requested Visits Authorized [id number] Authorized Auto-Generat ed Referral 07/16/2023 03/25/2024 2 2 Reason Comments Covid Follow Up Still has cough. X 2 months keeps up at night Reason Comments F/U HTN 6 Month Reason Comments Med Change Request Reason Comments persistent headache For the last 10 days , used to have hypertension, has been checking it at home but it seems okay. Getting headaches daily but they do go away. No other symptoms. Was sick 3 weeks ago and still having lingering mucous Reason Comments Results Labs Reason Comments Cough sore throat, ear yanira n x 3 days Reason Comments Follow Up Established Patient Reason Comments Vaginal Problem Reason Onset Date Comments Refill Request 03/28/2024 Reason Comments Wellness No pap Reason Onset Date Comments Refill Request 04/15/2024 Reason Comments Illness Cough, headache, eye s hurt, mild fever x 7 days Reason Comments 8 week f/u back pain Reason Comments PT Eval Reason Comments Low Back Pain Same Reason Comments Breast Problem Left nipple discharg e- white then bloody Pelvic Pain IUD inserted 07/2023 Reason Comments Well Woman Reason Comments Lab & Test Results Reason Comments New Patient Specialty Diagnoses / Procedures Referred By Contac t Referred To Contact [facility] / [facility] DEPARTMENT Diagnoses Chronic midline low back pain without sciatica Foraminal stenosis of lumbar region Procedures [facility] Farheen Almendarez, VÍCTOR.FRUIT [facility] [address] [place] [address] Phone: tel: fax: [facility] [phone] Referral ID Status Reason Start Date Expiration Date V isits Requested Visits Authorized [id number] Closed PCP Requested Referral 08/25/2024 11/23/2024 1 1 Reason Onset Date Comments Refill Request 10/15/2024 Reason Comments Electronic Communication Prior auth for zepbound Reason Comments Back Pain Specialty Diagnoses / Procedures Referred By Contac t Referred To Contact Pain Management Diagnoses 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 pain Procedures CONSULT TO PAIN MGT Fredo Ames MD [address] [place] [address] Phone: tel: fax: Referral ID Status Reason Start Date Expiration Date V isits Requested Visits Authorized [id number] Closed PCP Requested Referral 09/22/2024 09/22/2025 1 1 Reason Onset Date Comments Results 08/25/2024 Reason Onset Date Comments Refill Request 11/04/2024 Reason Onset Date Comments Results 09/07/2024 Reason Comments Consult Reason Onset Date Comments Refill Request 11/17/2024 Reason Comments Menstrual Problem FOR RECORDS PERTAINING TO PATIENTS WHO ARE OR HAVE BEEN ENROLLED IN A CHEMICAL DEPENDENCY/SUBSTANCEABUSE PROGRAM, SOME INFORMATION MAY BE OMITTED. This clinical summary was aggregated from multiple sources. Caution should be exercised in using it in the provision of clinical care. This summary normalizes information from multiple sources, and as a consequence, information in this document may materially change the coding, format and clinical context of patient data. In addition, data may be omitted in some cases. CLINICAL DECISIONS SHOULD BE BASED ON THE PRIMARY CLINICAL RECORDS. [facility]. provides no warranty or guarantee of the accuracy or completeness of information in this document.
[2024-11-28] MEDS: Magnesium 1 GM over 15 mins IV (07:24)
[2024-11-28] MEDS: Lactated Ringers 1,000 ML 40 ML IV (07:24)
[2024-11-28] MEDS: Scopolamine 1mg/72hr Patch 1 PATCH TD (07:26)
--- NOTE | 2024-11-28 07:45 | PCM.PRE.AN2 ---
ASA Classification* ASA Classification ASA Classification: 3 Assessment & Plan Anesthesia* Anesthesia Assessment Anesthesia Assessment: Discussed sedation and/or anesthesia options, risks, benefits, and alternatives with patient/parents/legal guardian/POA. Questions invited. The patient/parents/legal guardian/POA seems to understand and agrees to proceed with anesthesia plan. Reviewed the physical assessment, medical history, allergy history and patient home medications list prior to surgery/procedure/anesthetic and documented any changes. Performed airway and anesthesia risk assessments. Anesthesia Type Anesthesia Type: General History Source History Obtained from:: Patient and Chart Anesthesia Focused Assessment* Temperature: 97.4 F Pulse Rate: 68 Blood Pressure: 122/80 Respiratory Rate: 18 Pulse Ox: 100 Oxygen Delivery Method: Room Air Airway Assessment Mouth opens: >3 cm Mallampati Score: III Teeth Condition: Intact Neck Range of motion (ROM): Limited ROM (Slight Decrease) Labs Anesthesia Preop lab: CBC WBC 8.6 K/mm3 (4.4-11.0) 11/25/24 12:08 11/25/24 RBC 4.95 M/mm3 (4.2-5.4) 11/25/24 12:08 11/25/24 Hgb 13.2 g/dL (12.0-15.0) 11/25/24 12:08 11/25/24 Hct 41.8 % (37-47) 11/25/24 12:08 11/25/24 Plt Count 246 K/mm3 (150-450) 11/25/24 12:08 11/25/24 CHEMISTRY Potassium 3.5 mmol/L (3.5-5.1) 06/22/20 05:05 06/22/20 Sodium 138 mmol/L (136-145) 06/22/20 05:05 06/22/20 Magnesium 2.1 mg/dL (1.5-2.2) 11/25/24 12:08 11/25/24 BUN 10 mg/dL (7-18) 06/22/20 05:05 06/22/20 Creatinine 0.67 mg/dL (0.55-1.02) 05/17/21 15:55 05/17/21 Glucose 99 mg/dL (74-106) 06/22/20 05:05 06/22/20 TSH 3.410 uIU/mL (0.300-4.200) 11/25/24 12:08 11/25/24 COAG Pre-Assessment Diagnosis/Proposed Procedure Planned Operative Procedure(s): TOTAL LAP HYSTERECTOMY WITH CYSTOSCOPY Anesthesia History Anesthesia History - turn sewer: Anesthesia History - turn sewer Hx Hospitalization No 11/14/24 09:08 Any Problems With Anesthesia Yes: NAUSEA 11/14/24 09:08 Cholinesterase deficiency No 11/14/24 09:08 You/Your Family Experience No 11/14/24 09:08 fever (hyperthermia) with Relationship Recent Exposure to Contagious No 11/28/24 07:00 Disease Does patient have nerve No 11/14/24 09:08 stimulator Patient instructed to have device shut off --Does patient have Pacemaker No 11/28/24 07:00 or ICD? When Was Last Pacemaker Check QUESTION #4 FULL TEXT: You/Your Family Experience fever (hyperthermia) with Anesthesia Last Oral Intake Last Oral intake: Last Oral Intake NPO since 23:00 11/28/24 07:00 Meds taken in AM with sips of Yes 11/28/24 07:00 water? Meds patient instructed to levothyroxine, Gatorade 11/28/24 07:00 take am of surgery Any additional information?: Yes NPO since: 06:00 (Patient had Gatorade at 6 AM.) Meds taken in AM with sips of water?: Yes PONV PONV - turn sewer: PONV - turn sewer Female Yes 11/14/24 09:08 HX of Motion Sickness Yes 11/14/24 09:08 HX of N/V After Surgery Yes 11/14/24 09:08 Non-Smoker Yes 11/14/24 09:08 Duration of Surgery greater Yes 11/14/24 09:08 than 60 minutes Number of Risk Factors 5 11/14/24 09:08 PONV Score Severe Risk 11/14/24 09:08 Height & Weight Height & Weight: Anesthesia: Height & Weight Height 5 ft 4 in 11/28/24 07:00 Weight: 121 kg 11/28/24 07:00 Body Mass Index (BMI) 45.8 11/28/24 07:00 Respiratory Assessment Respiratory Assessment - turn sewer: Respiratory Tract Infection Hx - turn sewer Hx Respiratory Tract Infection No 11/14/24 09:08 STOP Sleep Apnea STOP Sleep Apnea - turn sewer: STOP Sleep Apnea - turn sewer Hx Hypertension Yes: NO MED FOR 1 YR 11/14/24 09:08 Hx Sleep Apnea No 11/14/24 09:08 CPAP BIPAP Do you snore loudly (louder No 11/14/24 09:08 than talking or can be heard Do you often feel tired/ Yes 11/14/24 09:08 fatigued/ sleepy during daytime? Has anyone observed you stop No 11/14/24 09:08 breathing during sleep? STOP Results Positive 11/14/24 09:08 QUESTION #5 FULL TEXT : Do you snore loudly (louder than talking or can be heard through closed doors)? Tobacco Use History Tobacco Use History - turn sewer: Tobacco Use History - turn sewer Tobacco Use Smoking Status Never smoker 11/14/24 09:08 Hx Tobacco Use No 11/14/24 09:08 Years Smoking Packs Smoked per Day Smoking Cessation Date was within the last 15 years Hx Smoking Cessation Date Hx Smoking Cessation Counseling Hematologic Medial History Hematologic Hx - turn sewer: Hematologic Medical Hx - steward/stewardess wine Hx of Blood Transfusion No 11/14/24 09:08 Hx of Transfusion in last 3 No 11/14/24 09:08 Months Date of Last Transfusion (if within last 3 months) Ever experience any problems No 11/14/24 09:08 with transfusion(s)? Specify any problems Hx of Preganancy in last 3 No 11/14/24 09:08 Months Nurse Filling Out Transfusion DSCHRIBER 11/14/24 09:08 & Questions: Date: 11/14/24 11/14/24 09:08 Time: 09:10 11/14/24 09:08 Patient unable to answer at this time (ie. confused, unrespo /Reproduction History /Reproductive History - turn sewer: /Reproductive Hx- turn sewer Hx Now No 11/14/24 09:08 Gestational Age (in weeks): EDC: Hx Hx Para Hx Section SAB No 11/14/24 09:08 Active Medications Active Medications: Current Medications Generic Name Dose Route Start Last Admin Trade Name Freq PRN Reason Stop Dose Admin Lactated Ringer's 1,000 mls @ 40 mls/hr 11/28/24 07:30 11/28/24 07:24 IV 40 mls/hr .Q25H JACQUI Administration Cefazolin Sodium 3 gm/ Sodium 115 mls @ 150 mls/hr 11/28/24 07:30 Chloride IV 11/28/24 08:15 INTRAOP ONE Lactated Ringer's 1,000 mls @ 70 mls/hr 11/28/24 07:30 IV .[id number] JACQUI Insulin Human Lispro 0 unit 11/28/24 07:30 Insulin Lispro 100 Unit/Ml Insuln.Pen SC Q4H PRN PRN BG >/= 180, SEE PROTOCOL Protocol Metronidazole 500 mg 11/28/24 07:30 11/28/24 07:25 Metronidazole 500 Mg Tablet PO 500 mg PREOP JACQUI Administration PFSH Medical History (Updated 11/17/24 @ 14:[address] Janet Myers MD) Wears contact lenses Alcohol use History of steroid therapy Thyroid disease Arthritis Low iron Fatty liver Back pain Non-smoker Leg cramps History of edema Hypertension Asthma depression Anxiety Home Medications ?Medication ?Instructions ?Recorded ?Last Taken ?Type sertraline 100 mg tablet (Zoloft) 100 mg PO QHS 04/07/21 10/24/24 History naproxen 375 mg tablet 375 mg PO TID PRN pain 10 days #30 05/19/21 Unknown Rx tabs oxycodone 5 mg tablet 5 mg PO Q6H PRN PRN severe pain 7 05/19/21 Unknown Rx days #20 TABLETS albuterol sulfate 90 mcg/actuation 2 puff inhalation Q4H PRN PRN 11/14/24 Unknown History aerosol inhaler wheezing ergocalciferol (vitamin D2) 1,250 50,000 unit PO QWEEK 11/14/24 11/05/24 History mcg (50,000 unit) capsule levothyroxine 100 mcg tablet 100 mcg PO DAILY 11/14/24 11/28/24 History tirzepatide (weight loss) 12.5 12.5 mg subcut FR 11/14/24 11/16/24 History mg/0.5 mL subcutaneous pen injector (Zepbound) tramadol 50 mg tablet 50 mg PO BID PRN PRN pain 11/14/24 11/26/24 History Allergy/AdvReac Type Severity Reaction Status Date / Time lisinopril Allergy Intermediate Other Verified 11/28/24 06:57 codeine AdvReac Nausea/Vom/ Verified 11/28/24 06:57 Diarrhea Surgical History (Updated 11/14/24 @ 09:21 by Leti Weiner) Hx of tonsillectomy Hx of foot surgery Hx of gastric bypass Delivery by section Social History Smoking Status: Never smoker Review of Systems (Anesthesia) ROS Narrative System reviewed and no additional complaints, except as documented. Physical Exam Resp clear to auscultation bilaterally
--- NOTE | 2024-11-28 08:30 | UT_PTH ---
PATIENT: LUARA LARA LOC: [facility] [place] U#:[id number] AGE/SX: 39/F ROOM: RE11/28/[address]: Dr. Gela Bunch, MDDOB: 1985 BED: DIS: 11/28/2024 SPEC #: [id number] RECD: 11/28/24 12:18 STATUS: AMINATA PELLETIERSony #: [id number] EDGAR: 11/28/24 08:[address]: Janet Myers DEPT: SURGICAL PATHOLOGY RECD BY: Walt Aguirre ENTERED: 11/28/24 14:36 SP TYPE: UTERUS OTHR DR: Dr. Gela Bunch, MD Rosalee Stephenson, ASSEMBLER [employer]-C Tissues: A - Uterus, NOS Procedures: Surgery Specimen Level V HEADER OPERATION: ERAS, hysterectomy, TLH, cystoscopy PRE-OP DIAGNOSIS: Dysmenorrhea, menorrhagia, malpositioned IUD TISSUE SUBMITTED: A- Uterus, cervix MICROSCOPIC DIAGNOSIS A. Uterus, cervix, hysterectomy: Benign squamous epithelium and endocervical glandular tissue Inactive endometrium Adenomyosis MICROSCOPIC DESCRIPTION Slides are reviewed. GROSS DESCRIPTION A. Received in formalin labeled with the patient's name and date of . Designated as uterus, cervix is a 147 g, 9.5 x 6.1 x 4.5 cm uterus devoid of attached adnexa. The serosa is palm-pink with patchy congestion and congested adhesions.. The attached cervix is palm-pink to red and granular, measuring 3.0 x 2.5 cm ; the 1.3 cm os is patent and expelling hemorrhagic mucoid material. The specimen is inked as follows: Refxujof-myhrnYymowlywx-qttygVyxypfotbmq-orange. Opening reveals a 7.7 x 3.5 cm slightly irregular cm endometrial canal lined by pale palm, somewhat lush endometrium that measures up to 0.3. cm thick. The myometrium is palm-pink and trabeculated with focally pale areas (anteriorly) and measures up to 2.4 cm thick. Definitive lesions are not grossly identified. Steam Box Operator sections are submitted as follows: A1: Anterior cervixA2: Posterior cervixA3: Anterior endomyometriumA4: Anterior endomyometrium with pale areasA5: Posterior endomyometriumA6: Serosal adhesions FL 11/28/2024PT:[id number]
[2024-11-28] MEDS: Lactated Ringers 1,000 ML 1000 ML IV (09:06)
[2024-11-28] MEDS: Midazolam 2 MG/2 ML Syringe IV (09:06)
[2024-11-28] MEDS: Lidocaine 1% (5 ml sdv) 5 ML Vial IV (09:11)
[2024-11-28] MEDS: Cefazolin 1 GM/5 ML Vial 3 GM IV (09:15)
--- NOTE | 2024-11-28 09:16 | PCM.DC ---
Discharge Instructions DC O2, CPAP, BIPAP needs Home O2 Discharge instructions: No Dressing / Incision Discharge Activity: May Drive (in 7-10 days as tolerated), May Shower and May Take a Tub Bath (in 6 weeks) May resume sexual activity in: 8 weeks and - (Nothing in your vagina for 6 weeks. No vaginal or anal intercourse for 6-8 weeks) Dressing / Incision Call your doctor if your incision/area has: Continuous Slow Oozing, Sudden Increased Bleeding, Increased Pain/ Swelling, Foul Smelling Discharge and Swelling at the incision site Call your doctor if you observe: Fever of 101 or Higher and Using more than 1 pad per hour Cleanse incision/area with: Soap & Water and - (Your incisions have skin glue, it can get wet, leave the glue on until it falls off. ) Follow Up Care Please Follow Up With: Janet Myers MD When: With my office in 1-2 and 6 weeks or as needed. [phone] Test Results: Test results from this visit will be discussed in further detail at your follow-up appointment, if applicable. Discharge Plan Admission Primary Reason for Your Visit: Hysterectomy Attending Provider: Gela Bunch Primary Care Provider: Rosalee Stephenson DIRECTOR CUSTOM Instructions Print Language: Macanese Discharge Orders/Prescriptions Prescriptions: No Action sertraline [Zoloft] 100 mg Tablet 100 mg PO QHS oxycodone 5 MG tablet 5 mg PO Q6H PRN PRN (Reason: severe pain) 7 Days Qty: 20 0RF naproxen 375 mg tablet 375 mg PO TID PRN (Reason: pain) 10 Days Qty: 30 0RF levothyroxine 100 mcg tablet 100 mcg PO DAILY tramadol 50 mg tablet 50 mg PO BID PRN PRN (Reason: pain) Zepbound 12.5 mg/0.5 mL pen injector 12.5 mg subcut FR ergocalciferol (vitamin D2) 1,250 mcg (50,000 unit) capsule 50,000 unit PO QWEEK albuterol sulfate 90 mcg/actuation HFA aerosol inhaler 2 puff inhalation Q4H PRN PRN (Reason: wheezing) Referrals / Follow Up: Lauren Ramirez, DO [Non-Staff] - Disposition Disposition (needs filled in before D/C Order can be placed): Home, Self Care
[2024-11-28] MEDS: metroNIDAZOLE 500 MG/100 ML BAG 100 MG IV (09:47)
[2024-11-28] MEDS: fentaNYL 100 MCG/2 ML Ampul IV (10:44)
--- NOTE | 2024-11-28 11:08 | PCM.OPRPT ---
Problems Associated Problem List Diagnoses (1) Dysmenorrhea: (2) Menorrhagia: (3) Malpositioned IUD: Operative Report (Standard) Operative Information Date of Procedure: 11/28/24 Pre-Operative Diagnosis: menorrhagia, dysmenorrhea Post-Operative Diagnosis: same Surgery/Procedure Performed: TLH, cystoscopy anthropologist: Yes Prescriptionist: Gela Bunch Tasks completed by director of first impressions: Opening, Closing, Altering tissue, Trocar and Retracting Additional assistant district attorney?: Yes Additional Transport Tank Technician #2: Sai Huang MS3 Tasks completed by assistant district attorney #2: Closing and Retracting Additional assistant district attorney?: No Type of Anesthesia: General RN Documented Start/Stop Times: Operation Date: 11/28/24 08:30 Case Time Into Pre-Op 11/28/24 06:31 Out of Pre-Op 11/28/24 08:59 Procedure Start Time: 09:32 Procedure Stop Time: 11:12 Select all DRAINS/GRAFTS/IMPLANTS that apply: None Estimated Blood Loss: 100 Fluids Replaced: 2000 LR Specimen collected: Yes Description of specimen(s) removed: uterus and cervix Description of surgery: The patient was taken to the operating room where she was prepped and draped in the dorsal lithotomy position. Her arms were tucked to the side and padded and her legs were placed in the yellowfin stirrups. Care was taken to ensure that she was placed in a neurologically safe and neutral position. A weighted speculum was placed in the vagina and the anterior lip of the cervix was grasped with a single-tooth tenaculum. The cervix sounded to centimeters. 2-0 Vicryl sutures were secured to the cervix at 3 and 9:00. The V-Care placed into the cervix and the balloon inflated. The stay sutures were placed through the cup and secured down to the cervix. Once the V-Care was secured to the cervix the Fiedl catheter was placed to straight drain. Attention was turned to the abdominal portion of the case. Before skin incisions were made they were infiltrated with 0.5% Marcaine solution for local anesthetic. A 5 mm intraumbilical incision was made and while tenting the anterior abdominal wall up with towel clamps a 5 mm blade less trocar and sleeve were advanced directly into the peritoneal cavity. Peritoneal placement was confirmed with the laparoscope the pneumoperitoneum was created, and the underlying abdominal contents were intact. The patient was placed in Trendelenburg and the above findings were noted. Right 5 mm and left 7 mm trocars were placed under direct visualization without difficulty. The round ligaments were clamped sealed and transected and a window was made in the peritoneum. The utero-ovarian ligaments were then clamped sealed and transected with the LigaSure device and the pedicles were hemostatic The bladder flap was dissected down with the LigaSure device and blunt dissection and the uterine arteries were then skeletonized. The uterine arteries were clamped sealed and transected on both sides with the LigaSure device. Then along the cardinal ligament uterine arteries adjacent to the cervix were clamped sealed and transected with the LigaSure device to move them away from the vaginal cuff angle. At this point the pedicles were all examined and found to be hemostatic. The bladder flap was rechecked and found to be adequately down. The monopolar tip of the LigaSure device was then used to enter the anterior vagina. The vaginal manipulator cup was noted in the vaginal colpotomy incision was made circumferentially around the cup. When the 3 and 9:00 positions of the cervicovaginal junction were reached these were clamped sealed and transected with the LigaSure device to secure any small remaining vessels. At this point the pedicles were hemostatic from above and attention was turned to the vaginal portion of the case again. The uterus was brought intact out through the vaginal colpotomy incision along with the tubes The posterior vaginal cuff was run and attached to the posterior peritoneum with a 2-0 Vicryl suture in a running locked fashion. Vaginal angle sutures were placed on both sides with 0 Vicryl sutures and care was taken to ensure that the uterosacral ligament was secured into this stitch. The remainder the vagina was then closed horizontally with interrupted 0 Vicryl sutures. The cuff was hemostatic vaginally. The Field catheter was removed and a cystoscopy was performed. The bladder appeared normal and was intact. Both ureteral orifices were noted and both ureteral jets were seen. The cystoscope was removed and the Field catheter was placed back to straight drain. A sponge stick was placed in the vagina to help place traction against the vaginal cuff and the pneumoperitoneum was re-created. The suction polytechnic registrar was used to remove any blood and clots from the peritoneal cavity. The pedicles were reexamined and found to be hemostatic. The vaginal cuff was hemostatic. Some Hemablast was placed over the cuff and the pedicles and no active bleeding was noted through the Carter. The right and left lateral ports were taken out and the sites were hemostatic. The pneumoperitoneum was released and even under low pressure there was no bleeding of any of the pedicles are vaginal cuff. The umbilical port was removed. The umbilical skin incisions were closed with Monocryl suture and skin glue by Dr. Hairston. The vaginal instruments were removed by me and a vaginal sweep was completed by me. The surgery was performed by me with assistance other than the portions dictated as above. There were no qualified residents available for this procedure. All sponge lap and needle counts were correct and the patient was transferred to the recovery room in stable condition. Surgical Findings: normal cervix and vagina, boggy uterus, normal ovaries, absent tubes Complications Complications: No Admit VTE Documentation VTE Present on Admission: No VTE Mechan Device Prophylaxis: SCD's VTE Pharm Prophylaxis ordered?: Yes
--- NOTE | 2024-11-28 11:27 | PCM.POST.ANE ---
Anesthesia: Postop Eval I Current Vital Signs Temperature: 97 F Pulse Rate: 86 Blood Pressure: 135/86 Respiratory Rate: 16 Pulse Ox: 98 Assessment Airway patent: Yes Spontaneous unlabored respirations: Yes nausea: No Vomiting: No Anesthesia Complication: No Fluid Hydration Crystalloid volume administer (ml): 2,000 Total IV fluid infused: 2,000 Progress Note Anesthesia document: Postop Eval 1 completed: Yes
--- NOTE | 2024-11-28 21:33 | POSTOPAN2_ITS ---
Anesthesia Postop Eval I Sum Postop Eval Completion status Anesthesia document: Postop Eval 1 completed: Yes Anesthesia Postop Eval I Summary Anesthesia Postop Eval I Summary: Anesthesia Postop Eval I: Assessment Summary Airway patent Yes 11/28/24 11:27 ELECTROMAGNET CRANE OPERATOR.ACAR Spontaneous unlabored Yes 11/28/24 11:27 ELECTROMAGNET CRANE OPERATOR.ACAR respirations Mental status nausea No 11/28/24 11:27 ELECTROMAGNET CRANE OPERATOR.ACAR Vomiting No 11/28/24 11:27 ELECTROMAGNET CRANE OPERATOR.ACAR Anesthesia Postop Eval I: Fluid Summary Crystalloid volume administer 2,000 11/28/24 11:27 ELECTROMAGNET CRANE OPERATOR.ACAR (ml) Colloids volume administered ( ml) Blood Product volume administered (ml) Total IV fluid infused 2,000 11/28/24 11:27 ELECTROMAGNET CRANE OPERATOR.ACAR Anesthesia Postop Eval I: Summary Notes Anesthesia Complication No 11/28/24 11:27 ELECTROMAGNET CRANE OPERATOR.ACAR Anesthesia Complication Comment: Post-operative progress note Anesthesia: Postop Eval II Evaluation Mental status: Awake and Calm Pain Level: 2 nausea: No Vomiting: No Complications Anesthesia Complication: No
--- NOTE | 2024-11-28 21:33 | PCM.POSTANE2 ---
Anesthesia Postop Eval I Sum Postop Eval Completion status Anesthesia document: Postop Eval 1 completed: Yes Anesthesia Postop Eval I Summary Anesthesia Postop Eval I Summary: Anesthesia Postop Eval I: Assessment Summary Airway patent Yes 11/28/24 11:27 TALENT ACQUISITION PROGRAM MANAGER.ACAR Spontaneous unlabored Yes 11/28/24 11:27 TALENT ACQUISITION PROGRAM MANAGER.ACAR respirations Mental status nausea No 11/28/24 11:27 TALENT ACQUISITION PROGRAM MANAGER.ACAR Vomiting No 11/28/24 11:27 TALENT ACQUISITION PROGRAM MANAGER.ACAR Anesthesia Postop Eval I: Fluid Summary Crystalloid volume administer 2,000 11/28/24 11:27 TALENT ACQUISITION PROGRAM MANAGER.ACAR (ml) Colloids volume administered ( ml) Blood Product volume administered (ml) Total IV fluid infused 2,000 11/28/24 11:27 TALENT ACQUISITION PROGRAM MANAGER.ACAR Anesthesia Postop Eval I: Summary Notes Anesthesia Complication No 11/28/24 11:27 TALENT ACQUISITION PROGRAM MANAGER.ACAR Anesthesia Complication Comment: Post-operative progress note Anesthesia: Postop Eval II Evaluation Mental status: Awake and Calm Pain Level: 2 nausea: No Vomiting: No Complications Anesthesia Complication: No
== END 2024-11-28 15:55 | disposition home or self-care (01) ==
LOC: SDC 06:27 → AC 06:28
PROVIDERS: Anesthesiology; Obstetrics & Gynecology; PCP Nurse Practitioner Family; Referring Provider Obstetrics & Gynecology; Visit Provider Obstetrics & Gynecology
PROC: 0UT94ZZ Resection of Uterus, Percutaneous Endoscopic Approach (ICD-10-PCS; principal; 2024-11-28 08:10)
DX: N80.03 Adenomyosis of the uterus (principal); Z79.4 Long term (current) use of insulin; N92.0 Excessive and frequent menstruation with regular cycle; Z79.890 Hormone replacement therapy; N94.6 Dysmenorrhea, unspecified; E03.9 Hypothyroidism, unspecified; I10 Essential (primary) hypertension; J45.909 Unspecified asthma, uncomplicated
CPT/HCPCS: 58550; 00840; 36415; 82962; 83735; 84443; 85025; 86850; 86900; 86901; 88307; J2405; J3475